=== PATIENT | female | born 1940 | race Caucasian/White ===

== ENCOUNTER → 2017-10-21 | Outpatient (CLI) | payer MEDICARE, MEDICAID ==
[~2017-10-21] MED LIST: ACHD5005 PO; AMLO5TAB2 PO; ASPI-266 PO; ASPI-86 PO; CALC-6 PO; CALC600T12 PO; CALCIUM; CARV25TA PO; CARVEDILOL; CATHETER FLUSH 10 ML SYR IV PRN; CHOL100011 PO; CIPR5DRO OT; CLIN150C17 PO; CLOP75TA; CLPD75T PO; DABI150C5 PO; DEXT15DR OP; DICL50TA4; ERGO400C; FURO40TA4 PO; GABA-488 PO; GLIM4TAB PO; GLUC500C2; LEVO750T6 PO; LOSA100T16; LOSA100T7 PO; LOVA20TA2; LOVA20TA2 PO; METF-380 PO; OMEG1CAP24; OMEG1CAP51 PO; ONDA8TAB9 PO; POTA10CA43 PO; PRD20T PO; REGADENOSON 0.4 MG/5 ML SYR (LEXISCAN) IV ONE; SITA1TAB2; SULF1TAB35 PO
[2017-10-21 13:18] VITALS: BP 118/61
--- NOTE | 2017-10-21 17:30 | STRESS TEST ---
DATE OF SERVICE: 10/21/2017 PROCEDURE: Resting and post regadenoson technetium-99m Tetrofosmin SPECT CT imaging. CLINICAL DIAGNOSIS: Coronary artery disease. ORDERING PHYSICIAN: Dr. Blandon. PRIMARY PHYSICIAN: Dr. Kyle. Baseline images were carried out after injection of 10.19 mCi of technetium-99m Tetrofosmin. This was followed by 0.4 mg regadenoson and 29.3 mCi technetium-99m Tetrofosmin for stress imaging. The electrocardiogram showed atrial fibrillation throughout the study. The electrocardiogram did not change significantly with the regadenoson infusion. Review of images at rest and following stress does not indicate any significant perfusion defects consistent with significant myocardial ischemia or infarction. Gated images show normal global left ventricular systolic function with normal regional wall motion. Left ventricular ejection fraction is calculated to be 58%. Left ventricular end diastolic volume is 54 mL. TID is absent (1.15). CONCLUSIONS: 1. No evidence of any significant myocardial ischemia or infarction on this study. 2. Normal regional wall motion. 3. Normal global left ventricular systolic function with a calculated ejection fraction of 58%. Job ID: [id number] DocumentID: [id number] Dictated Date: 10/21/2017 15:00:43 Accounts Receivable Executive Date: 10/21/2017 17:30:26 Dictated By: SINDY BLANDON MD, MA, FACP, FACC,
== END ==
LOC: CARD 11:24
PROVIDERS: ATTEND Internal Medicine Cardiovascular Disease
DX: I25.10 Atherosclerotic heart disease of native coronary artery without angina pectoris (principal); R06.09 Other forms of dyspnea; E78.4 Other hyperlipidemia; I10 Essential (primary) hypertension; I48.2 Chronic atrial fibrillation; G51.0 Bell's palsy; I65.23 Occlusion and stenosis of bilateral carotid arteries
CPT/HCPCS: 78452; 93017; 93306

== ENCOUNTER 2018-02-10 18:01 | Observation (INO) | payer MEDICARE, MEDICAID ==
[~2018-02-10] VITALS: Ht 154.9 cm; Wt 91.6 kg
[2018-02-10] VITALS (9 sets, daily range): BP systolic 82–128; BP diastolic 31–69
[~2018-02-10 18:01] MED LIST changes: -CATHETER FLUSH 10 ML SYR IV PRN; -REGADENOSON 0.4 MG/5 ML SYR (LEXISCAN) IV ONE
--- OUTSIDE RECORDS SUMMARY | 2018-02-10 18:07 | XMS REPORT | Continuity of Care Document ---
Author Author [facility] Organization [facility] Address Unknown Phone Unavailable Allergies Active Description Code Type Severity Reaction Onset Reported/Identified Relationship to Patient Clinical Status Yes NKANo Known Allergies NKA Miscellaneous Allergy Unknown N/A 03/26/2006 Medications There is no data. Problems Date Dx Coded Attending Type Code Diagnosis Diagnosed By 10/27/2011 Ot 490 10/27/2011 Ot 786.2 07/20/2014 ROSALIE POWELL FACC, SINDY FACP CCDS Ot 250.00 DIAB FILIBERTO WO COMPL, TYPE II OR UNSPEC TY 07/20/2014 SINDY WIGGINS MD, FACC FACP CCDS Ot 272.4 HYPERLIPIDEMIA NEC/NOS 07/20/2014 SINDY WIGGINS MD, FACC FACP CCDS Ot 278.01 MORBID OBESITY 07/20/2014 ROSALIE POWELL FACC, SINDY FACP CCDS Ot 414.01 CORONARY ATHEROSCLEROSIS OF [place] CORON 07/20/2014 SINDY WIGGINS MD, FACC FACP CCDS Ot 427.31 ATRIAL FIBRILLATION 07/20/2014 SINDY WIGGINS MD, FACC FACP CCDS Ot V45.82 PERCUTANEOUS TRANSLUM CORON ANGIOPLASTY 07/20/2014 SINDY WIGGINS MD, FACC FACP CCDS Ot V58.61 ANTICOAGULANTS,LT,CURRENT USE 07/20/2014 SINDY WIGGINS MD, FACC FACP CCDS Ot V58.69 OTH MED,LT,CURRENT USE 07/20/2014 SINDY WIGGINS MD, FACC FACP CCDS Ot V85.41 BODY MASS INDEX 40.0-44.9, ADULT 08/09/2014 BAIMA JACOB L [employer]IVESTOCK BUYER Ot 272.4 08/09/2014 BAIMA JACOB L [employer]OCK BUYER Ot 401.9 08/09/2014 BAIMA, JACOB L [employer]IVESTOCK BUYER Ot 427.31 08/09/2014 BAIMA, JACOB L LIVESTOCK BUYER Ot 784.0 08/09/2014 BAIMA JACOB L [employer]IVESTOCK BUYER Ot 786.09 08/09/2014 BAIMA, JACOB L LIVESTOCK BUYER Ot 786.59 08/19/2014 BAIMA, JACOB L [employer]OCK BUYER Ot 272.4 08/19/2014 BAIMA, JACOB L LIVESTOCK BUYER Ot 401.9 08/19/2014 BAIMA, JACOB L [employer]OCK BUYER Ot 427.31 08/19/2014 BAIMA, JACOB L [employer]OCK BUYER Ot 784.0 08/19/2014 BAIMA, JACOB L [employer]IVESTOCK BUYER Ot 786.09 08/19/2014 BAIMA, JACOB L [employer]IVESTOCK BUYER Ot 786.59 08/22/2014 BAIMA, JACOB L [employer]IVESTOCK BUYER Ot 272.4 08/22/2014 BAIMA, JACOB L [employer]IVE[employer]OCK BUYER Ot 401.9 08/22/2014 BAIMA, JACOB L LIVESTOCK BUYER Ot 427.31 08/22/2014 BAIMA, JACOB L LIVESTOCK BUYER Ot 786.09 08/22/2014 BAIMA, JACOB L LIVESTOCK BUYER Ot V58.61 09/06/2014 BAIMA, JACOB L LIVESTOCK BUYER Ot 272.4 09/06/2014 BAIMA, JACOB L [employer]IVESTOCK BUYER Ot 401.9 09/06/2014 BAIMA, JACOB L LIVESTOCK BUYER Ot 427.31 09/06/2014 BAIMA, JACOB L [employer]IVE[employer]OCK BUYER Ot 786.09 09/06/2014 BAIMARY JACOB L LIVESTOCK BUYER Ot V58.61 01/03/2015 ELIZABETH MALDONADO DO Ot V45.82 01/03/2015 ELIZBAETH MALDONADO DO Ot V57.89 02/12/2015 ELIZABETH MALDONADO DO Ot V45.82 PERCUTANEOUS TRANSLUM CORON ANGIOPLASTY 02/12/2015 ELIZABETH MALDONADO DO Ot V57.89 REHABILITATION PROC NEC 02/17/2015 ELIZABETH MALDONADO DO Ot V45.82 PERCUTANEOUS TRANSLUM CORON ANGIOPLASTY 02/17/2015 ELIZABETH MALDONADO DO Ot V57.89 REHABILITATION PROC NEC 06/09/2015 Ot 447.9 06/09/2015 Ot 729.5 06/09/2015 Ot 272.4 06/09/2015 Ot 414.01 06/09/2015 Ot 433.10 06/09/2015 Ot 780.79 06/09/2015 Ot V58.69 06/09/2015 Ot 782.0 06/09/2015 Ot 434.91 06/09/2015 Ot 414.00 06/09/2015 Ot 434.91 06/09/2015 Ot 721.0 06/09/2015 Ot 414.01 06/09/2015 Ot 785.0 06/09/2015 Ot V58.66 06/09/2015 Ot V58.69 06/09/2015 BAIMA, JACOB L [employer]IVE[employer]OCK BUYER Ot 272.4 06/09/2015 BAIMA, JACOB L LIVESTOCK BUYER Ot 401.9 06/09/2015 BAIMA, JACOB L [employer]IVE[employer]OCK BUYER Ot 427.31 06/09/2015 BAIMA, JACOB L [employer]IVE[employer]OCK BUYER Ot 786.09 06/09/2015 BAIMA, JACOB L LIVESTOCK BUYER Ot V58.61 06/09/2015 BAIMA, JACOB L [employer]IVE[employer]OCK BUYER Ot 272.4 06/09/2015 BAIMA, JACOB L LIVESTOCK BUYER Ot 401.9 06/09/2015 BAIMA, JACOB L LIVESTOCK BUYER Ot 427.31 06/09/2015 BAIMA, JACOB L LIVESTOCK BUYER Ot 784.0 06/09/2015 BAIMA, JACOB L LIVESTOCK BUYER Ot 786.09 06/09/2015 BAIMA, JACOB L [employer]IVE[employer]OCK BUYER Ot 786.59 06/09/2015 ELIZABETH MALDONADO DO Ot V45.82 06/09/2015 ELIZABETH MALDONADO DO Ot V57.89 06/26/2015 ROSALIE POWELL FACC, ALI FACP CCDS Ot E78.5 06/26/2015 ROSALIE POWELL FACC, ALI FACP CCDS Ot I10 06/26/2015 ROSALIE POWELL FACC, ALI FACP CCDS Ot I25.10 06/26/2015 ROSALIE POWELL FACC, ALI FACP CCDS Ot I48.91 06/26/2015 ROSALIE POWELL FACC, ALI FACP CCDS Ot R06.09 06/29/2015 ROSALIE POWELL FACC, ALI FACP CCDS Ot E78.5 06/29/2015 ROSALIE KNIGHTC, ALI FACP CCDS Ot I10 06/29/2015 ROSALIE KNIGHTC, ALI FACP CCDS Ot I25.10 06/29/2015 ROSALIE POWELL FACC, ALI FACP CCDS Ot I48.91 06/29/2015 ROSALIE KNIGHTC, ALI FACP CCDS Ot R06.09 07/19/2015 ROSALIE KNIGHTC, ALI FACP CCDS Ot E78.5 07/19/2015 ROSALIE POWELL FACC, ALI FACP CCDS Ot I10 07/19/2015 ROSALIE POWELL FACC, ALI FACP CCDS Ot I25.10 07/19/2015 ROSALIE POWELL FACC, ALI FACP CCDS Ot I48.91 07/19/2015 ROSALIE POWELL FACC, ALI FACP CCDS Ot R06.09 07/24/2015 ROSALIE POWELL FACC, ALI FACP CCDS Ot E78.5 07/24/2015 ROSALIE POWELL FAC, ALI FACP CCDS Ot I10 07/24/2015 ROSALIE POWELL FACC, ALI FACP CCDS Ot I25.10 07/24/2015 ROSALIE POWELL FAC, ALI FACP CCDS Ot I48.91 07/24/2015 ROSALIE POWELL FAC, ALI FACP CCDS Ot R06.09 07/31/2015 ROSALIE POWELL FAC, ALI FACP CCDS Ot E78.5 07/31/2015 ROSALIE POWELL [facility], ALI FACP CCDS Ot I10 07/31/2015 ROSALIE POWELL [facility], ALI FACP CCDS Ot I25.10 07/31/2015 ROSALIE POWELL [facility], ALI FACP CCDS Ot I48.91 07/31/2015 RSOALIE POWELL [facility], ALI FACP CCDS Ot R06.09 08/14/2015 ELIZABETH MALDONADO DO, Ot D64.9 ANEMIA, UNSPECIFIED 08/14/2015 ELIZABETH MALDONADO DO Ot 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 08/14/2015 ELIZABETH MALDONADO DO Ot E66.9 OBESITY, UNSPECIFIED 08/14/2015 ELIZABETH MALDONADO DO Ot E78.5 HYPERLIPIDEMIA, UNSPECIFIED 08/14/2015 ELIZABETH MALDONADO DO Ot I10 ESSENTIAL (PRIMARY) HYPERTENSION 08/14/2015 ELIZABETH MALDONADO DO, Ot I25.10 ATHSCL HEART DISEASE OF [place] CORONARY 08/14/2015 ELIZABETH MALDONADO DO Ot I27.2 OTHER SECONDARY PULMONARY HYPERTENSION 08/14/2015 ELIZABETH MALDONADO DO Ot I48.2 CHRONIC ATRIAL FIBRILLATION 08/14/2015 ELIZABETH MALDONADO DO Ot I50.31 ACUTE DIASTOLIC (CONGESTIVE) HEART FAILU 08/14/2015 ELIZABETH MALDONADO DO Ot R09.02 HYPOXEMIA 08/14/2015 ELIZABETH MALDONADO DO Ot Z68.41 BODY MASS INDEX (BMI) 40.0-44.9, ADULT 08/14/2015 ELIZABETH MALDONADO DO Ot Z98.61 CORONARY ANGIOPLASTY STATUS 08/16/2015 ELIZABETH MALDONADO DO Ot R09.02 08/31/2015 ERICA GARCIA ELIZABETH Dwight Ot R09.02 08/31/2015 ESTELITA RAO LINOTYPE MECHANIC Ot 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 08/31/2015 ESTELITA RAO LINOTYPE MECHANIC Ot H60.12 CELLULITIS OF LEFT EXTERNAL EAR 09/22/2015 ELIZABETH MALDONADO DO Ot R09.02 11/15/2015 NEELA POWELL, RAHEEL Gastelum Ot H91.90 11/28/2015 NEELA POWELL, RAHEEL Gastelum Ot H91.90 10/21/2017 BAIMA, JACOB L LIVESTOCK BUYER Ot 272.4 HYPERLIPIDEMIA NEC/NOS 10/21/2017 BAIMA, JACOB L LIVESTOCK BUYER Ot 401.9 HYPERTENSION NOS 10/21/2017 BAIMA, JACOB L LIVESTOCK BUYER Ot 427.31 ATRIAL FIBRILLATION 10/21/2017 BAIMA, JACOB L LIVESTOCK BUYER Ot 786.09 RESPIRATORY ABNORM NEC 10/21/2017 BAIMA, JACOB L LIVESTOCK BUYER Ot V58.61 ANTICOAGULANTS,LT,CURRENT USE 10/21/2017 BAIMA, JACOB L LIVESTOCK BUYER Ot 272.4 HYPERLIPIDEMIA NEC/NOS 10/21/2017 BAIMA, JACOB L LIVESTOCK BUYER Ot 401.9 HYPERTENSION NOS 10/21/2017 BAIMA, JACOB L LIVESTOCK BUYER Ot 427.31 ATRIAL FIBRILLATION 10/21/2017 BAIMA, JACOB L LIVESTOCK BUYER Ot 784.0 HEADACHE 10/21/2017 BAIMA, JACOB L LIVESTOCK BUYER Ot 786.09 RESPIRATORY ABNORM NEC 10/21/2017 BAIMA, JACOB L LIVESTOCK BUYER Ot 786.59 CHEST PAIN NEC 10/21/2017 ELIZABETH MALDONADO DO Ot V45.82 PERCUTANEOUS TRANSLUM CORON ANGIOPLASTY 10/21/2017 ELIZABETH MALDONADO DO Ot V57.89 REHABILITATION PROC NEC 10/21/2017 ROSALIE POWELL FACC, SINDY KNIGHTP CCDS Ot E78.5 HYPERLIPIDEMIA, UNSPECIFIED 10/21/2017 ROSALIE POWELL FACC, SINDY KNIGHTP CCDS Ot I10 ESSENTIAL (PRIMARY) HYPERTENSION 10/21/2017 ROSALIE KNIGHTC, ALI FACP CCDS Ot I25.10 ATHSCL HEART DISEASE OF [place] CORONARY 10/21/2017 ROSALIE POWELL FACC, ALI FACP CCDS Ot I48.91 UNSPECIFIED ATRIAL FIBRILLATION 10/21/2017 ROSALIE POWELL FACC, ALI FACP CCDS Ot R06.09 OTHER FORMS OF DYSPNEA 10/21/2017 ROSALIE POWELL FACC, ALI FACP CCDS Ot E78.5 HYPERLIPIDEMIA, UNSPECIFIED 10/21/2017 ROSALIE POWELL FACC, ALI FACP CCDS Ot I10 ESSENTIAL (PRIMARY) HYPERTENSION 10/21/2017 ROSALIE POWELL FACC, ALI FACP CCDS Ot I25.10 ATHSCL HEART DISEASE OF [place] CORONARY 10/21/2017 ROSALIE POWELL FACC, ALI FACP CCDS Ot I48.91 UNSPECIFIED ATRIAL FIBRILLATION 10/21/2017 ROSALIE POWELL FACC, ALI FACP CCDS Ot R06.09 OTHER FORMS OF DYSPNEA 10/21/2017 ELIZABETH MALDONADO DO Ot R09.02 HYPOXEMIA 10/21/2017 RAHEEL KEITA MD Ot H91.90 UNSPECIFIED HEARING LOSS, UNSPECIFIED EA 10/22/2017 ROSALIE POWELL FACC, ALI FACP CCDS Ot E78.4 OTHER HYPERLIPIDEMIA 10/22/2017 ROSAILE POWELL FACC, ALI FACP CCDS Ot 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 10/22/2017 ROSALIE POWELL FACC, ALI FACP CCDS Ot I10 ESSENTIAL (PRIMARY) HYPERTENSION 10/22/2017 ROSALIE POWELL FACC, ALI FACP CCDS Ot I25.10 ATHSCL HEART DISEASE OF [place] CORONARY 10/22/2017 ROSALIE POWELL FACC, ALI FACP CCDS Ot I48.2 CHRONIC ATRIAL FIBRILLATION 10/22/2017 ROSALIE POWELL FACC, ALI FACP CCDS Ot I65.23 OCCLUSION AND STENOSIS OF BILATERAL [place] 10/22/2017 ROSALIE POWELL FACC, ALI FACP CCDS Ot R06.09 OTHER FORMS OF DYSPNEA 11/20/2017 ROSALIE POWELL FACC, ALI FACP CCDS Ot E78.4 OTHER HYPERLIPIDEMIA 11/20/2017 ROSALIE POWELL FACC, ALI FACP CCDS Ot 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 Results There is no data. Encounters ACCT No. Visit Date/Time Discharge Status Pt. Type Provider Facility Loc./Unit Complaint [id number] 10/22/2017 11:00:00 10/22/2017 23:59:59 CLS Preadmit SINDY WIGGINS MD, FACC, FACP CCDS [facility] CARD I25.10 CAD [id number] 10/21/2017 11:24:00 10/21/2017 23:59:59 CLS Outpatient SINDY WIGGINS MD, FACC, FACP CCDS [facility] CARD I25.10 CAD [id number] 10/26/2015 10:52:00 10/26/2015 23:59:59 CLS Outpatient RAHEEL KEITA MD [facility] RAD POOR SPEECH, ASSYMETRICAL HEARING LOSS [id number] 08/31/2015 11:20:00 08/31/2015 15:18:00 DIS Emergency ESTELITA RAO APRN [facility] ER L SIDE FACIAL DROOPING [id number] 08/10/2015 16:20:00 08/14/2015 11:51:00 DIS Inpatient ELIZABETH MALDONADO DO [facility] 4TH CHF [id number] 08/10/2015 14:16:00 08/10/2015 23:59:59 CLS Outpatient ELIZABETH MALDONADO DO [facility] RAD HYPOXIA [id number] 06/22/2015 07:58:00 06/22/2015 23:59:59 CLS Outpatient SINDY WIGGINS MD, FACC FACP CCDS [facility] CARD DYSPNEA,CAD, AFIB [id number] 06/09/2015 09:06:00 06/09/2015 23:59:59 CLS Outpatient SINDY WIGGINS MD, FACCP CCDS [facility] CARD AFIB [id number] 02/10/2015 11:38:00 02/17/2015 12:29:00 DIS Outpatient ELIZABETH MALDONADO DO [facility] CR STENT 07/2014 [id number] 02/13/2015 10:00:00 02/13/2015 23:59:59 CLS Preadmit ELIZABETH MALDONADO DO [facility] CR STENT 07/2014 [id number] 02/08/2015 11:33:00 02/12/2015 00:01:00 DIS Outpatient ELIZABETH MALDONADO DO [facility] CR STENT 07/2014 [id number] 07/19/2014 07:10:00 07/20/2014 12:30:00 DIS Outpatient ROSALIE POWELL FACRolf, SINDY SCHREIBER CCDS [facility] CATH ABNORMAL STRESS,CAD [id number] 07/07/2014 08:03:00 07/07/2014 23:59:59 CLS Outpatient BAIMA, JACOB L LIVESTOCK BUYER [facility] CARD PAF,DYPSNEA,HTN,HLP [id number] 07/05/2014 09:52:00 07/05/2014 23:59:59 CLS Outpatient BAIMA, JACOB L LIVESTOCK BUYER [facility] CARD PAF,DYPSNEA,HTN,HLP [id number] 10/27/2011 10:17:00 Document Registration [id number] 06/13/2011 11:03:00 Document Registration [id number] 06/06/2011 10:25:00 Document Registration [id number] 05/23/2011 08:41:00 Document Registration [id number] 05/09/2011 14:46:00 Document Registration [id number] 05/07/2011 09:28:00 Document Registration [id number] 01/18/2010 08:22:00 Document Registration [id number] 01/04/2010 10:38:00 Document Registration [id number] 06/09/2015 09:08:01 ACT Document Registration
--- NOTE | 2018-02-10 18:56 | ED General ---
General Chief Complaint: General Problems/Pain Stated Complaint: WEAKNESS Source of Information: Patient, Family (Sister), Other Exam Limitations: No Limitations History of Present Illness Date Seen by Provider: Feb 10, 2018 Time Seen by Provider: 18:41 Initial Comments Patient presents to the ER by private conveyance with her sister and her significant other and chief complaint that the past couple months she's been feeling weaker and tired and was complaining of having increased abdominal girth. She went to see her doctor about a week or so ago and he thought that she was in heart failure and wanted her to go in the hospital but it sounds like she refused this so he just increased her Lasix from 40 once a day to 40 twice a day and also increased her potassium. She says she started to feel little better but then 2 days ago she started getting weaker again and got tired and winded just walking from the car to her house. She got up early in the morning because she thought she heard something outside the window and fell landing on the right side of her head and bruising up both of her feet. She says she has peripheral neuropathy secondary to diabetes and does not have much pain from this. She is not been seen for this fall. She's not had any other falls since then. She's not having any weakness, blurry vision, double vision, blindness, difficulty with swallowing. 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 She is not had a cough, fevers or chills. No rash. She has been taking her Lasix and potassium as prescribed. She is on Pradaxa for history of atrial fibrillation and she's had 2 stents in the past by Dr. Blandon. The patient relates to the nurse that after she fell and stubbed her toe bled quite a bit for some time. She says for several hours she cannot get it stopped. She just stopped trying and let it bleed out. She said eventually it stopped but she's not sure how long it bled, she thinks it was probably over several hours. Allergies and Home Medications Allergies Coded Allergies: ARSALANANo Known Allergies (Verified Allergy, Unknown, 03/26/06) Home Medications Amlodipine Besylate 5 Mg Tablet, 5 MG PO DAILY, (Reported) Calcium Carbonate/Vitamin D3 1 Each Tablet, 1 TAB PO DAILY, (Reported) Carvedilol 25 Mg Tablet, 25 MG PO BID, (Reported) Cholecalciferol 1,000 Unit Capsule, 1,000 UNIT PO DAILY, (Reported) Ciprofloxacin HCl 5 Ml Drops, 3 DROPS OT BID Prescribed by: ESTELITA RAO on 08/31/151341 Clindamycin HCl 150 Mg Capsule, 450 MG PO TID Prescribed by: ESTELITA RAO on 08/31/151341 Dabigatran Etexilate Mesylate 150 Mg Capsule, 150 MG PO BID, (Reported) Dextran 70/Hypromellose 15 Ml Drops, 2 ML OP TID Prescribed by: ESTELITA RAO on 08/31/15 134 Furosemide 40 Mg Tablet, 40 MG PO DAILY PRN for FLUID RETENTION, (Reported) Gabapentin 300 Mg Capsule, 300 MG PO HS, (Reported) Glimepiride 4 Mg Tablet, 4 MG PO BID, (Reported) Losartan Potassium 100 Mg Tablet, 100 MG PO DAILY, (Reported) Lovastatin 20 Mg Tablet, 20 MG PO HS, (Reported) Metformin Hcl 1,000 Mg Tablet, 1,000 MG PO BID WITH MEALS, (Reported) Nordman-3 Fatty Acids/Fish Oil 1 Each Capsule, 1,000 MG PO DAILY, (Reported) Ondansetron 8 Mg Tab.rapdis, 8 MG PO Q6H PRN for NAUSEA/VOMITING Prescribed by: ESTELITA RAO on 08/31/151341 Potassium Chloride 10 Meq Capsule.er, 10 MEQ PO DAILY Prescribed by: ELIZABETH MALDONADO on 08/14/15 09 Prednisone 20 Mg Tab, 40 MG PO DAILY Prescribed by: ESTELITA RAO on 08/31/15 134 Sulfamethoxazole/Trimethoprim 1 Each Tablet, 1 EACH PO BID Prescribed by: ESTELITA RAO on 08/31/151341 Patient Home Medication List Home Medication List Reviewed: Yes Review of Systems Constitutional: No chills, No diaphoresis; dizziness; No fever; malaise, weakness EENTM: No ear discharge, No ear pain Respiratory: No cough, No short of breath Cardiovascular: No chest pain, No edema; Hx of Intervention; No palpitations, No syncope; vascular heart diseas Gastrointestinal: No abdominal pain, No constipation, No diarrhea, No nausea, No vomiting Past Hgjqnpv-Turutl-Ufjxqa Hx Patient Social History Alcohol Use: Denies Use Recreational Drug Use: No Smoking Status: Never a Smoker Recent Foreign Travel: No Contact w/Someone Who Travel: No Immunizations Up To Date Tetanus Booster (TDap): Unknown PED Vaccines UTD: No Date of Pneumonia Vaccine: Jul 19, 2011 Date of Influenza Vaccine: Jun 01, 2015 Past Medical History Reproductive Disorders: No Arthritis Diabetes, Non-Insulin dep Anxiety, Depression Adverse Reaction/Blood Tranf: No Family Medical History Cardiovascular disease 19 FATHER 19 MOTHER FH: stroke FHx: diabetes mellitus Physical Exam Vital Signs Vital Signs - First Documented 02/10/18 02/10/18 18:21 20:52 Temp 98.2 Pulse 98 Resp 24 B/P (MAP) 90/58 (69) Pulse Ox 99 O2 Delivery Room Air Capillary Refill : General Appearance: No Apparent Distress, WD/WN Eyes: Bilateral Eye Normal Inspection, Bilateral Eye PERRL, Bilateral Eye EOMI HEENT: PERRL/EOMI, TMs Normal, Normal ENT Inspection, Pharynx Normal, Other ( Scalp is atraumatic and nontender.) Neck: Full Range of Motion, Normal Inspection, Non Tender, Supple Respiratory: Chest Non Tender, Lungs Clear, Normal Breath Sounds, No Accessory Muscle Use, No Respiratory Distress Cardiovascular: Regular Rate, Rhythm, No Murmur, Normal Peripheral Pulses, Other (Faint trace bilateral pedal edema) Gastrointestinal: Normal Bowel Sounds, Non Tender, Soft Neurologic/Psychiatric: Alert, Oriented x3, No Motor/Sensory Deficits, Normal Mood/Affect, 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 Norm as Tested Skin: Warm/Dry, Pallor Progress/Results/Core Measures Suspected Sepsis SIRS Temperature: Pulse: Respiratory Rate: Laboratory Tests 02/10/18 18:37: White Blood Count 11.6H Blood Pressure / Mean: Laboratory Tests 02/10/18 18:37: Creatinine 1.21, Platelet Count 397, Total Bilirubin 0.3 Results/Orders Lab Results Laboratory Tests Test 02/10/18 18:37 02/10/18 19:55 Range/Units White Blood Count 11.6 H 4.3-11.0 10^3/uL Red Blood Count 2.22 L 4.35-5.85 10^6/uL Hemoglobin 5.7 *L 11.5-16.0 G/DL Hematocrit 19 *L 35-52 % Mean Corpuscular Volume 85 80-99 FL Mean Corpuscular Hemoglobin 26 25-34 PG Mean Corpuscular Hemoglobin Concent 30 L 32-36 G/DL Red Cell Distribution Width 21.3 H 10.0-14.5 % Platelet Count 397 130-400 10^3/uL Mean Platelet Volume 11.2 H 7.4-10.4 FL Neutrophils (%) (Auto) 86 H 42-75 % Lymphocytes (%) (Auto) 10 L 12-44 % Monocytes (%) (Auto) 3 0-12 % Eosinophils (%) (Auto) 0 0-10 % Basophils (%) (Auto) 0 0-10 % Neutrophils # (Auto) 10.0 H 1.8-7.8 X 10^3 Lymphocytes # (Auto) 1.2 1.0-4.0 X 10^3 Monocytes # (Auto) 0.4 0.0-1.0 X 10^3 Eosinophils # (Auto) 0.0 0.0-0.3 10^3/uL Basophils # (Auto) 0.0 0.0-0.1 10^3/uL Neutrophils % (Manual) 80 % Lymphocytes % (Manual) 10 % Monocytes % (Manual) 2 % Eosinophils % (Manual) 0 % Basophils % (Manual) 2 % Metamyelocytes % 2 % Band Neutrophils 4 % Anisocytosis MODERATE Microcytosis SLIGHT Sodium Level 141 135-145 MMOL/L Potassium Level 5.1 H 3.6-5.0 MMOL/L Chloride Level 108 H 98-107 MMOL/L Carbon Dioxide Level 20 L 21-32 MMOL/L Anion Gap 13 5-14 MMOL/L Blood Urea Nitrogen 64 H 7-18 MG/DL Creatinine 1.21 0.60-1.30 MG/DL Estimat Glomerular Filtration Rate 43 BUN/Creatinine Ratio 53 Glucose Level 142 H 70-105 MG/DL Calcium Level 9.7 8.5-10.1 MG/DL Magnesium Level 2.0 1.8-2.4 MG/DL Total Bilirubin 0.3 0.1-1.0 MG/DL Aspartate Amino Transf (AST/SGOT) 11 5-34 U/L Alanine Aminotransferase (ALT/SGPT) 12 0-55 U/L Alkaline Phosphatase 43 40-136 U/L Troponin I < 0.30 <0.30 NG/ML B-Type Natriuretic Peptide 351.9 H <100.0 PG/ML Total Protein 6.4 6.4-8.2 GM/DL Albumin 3.7 3.2-4.5 GM/DL Urine Color YELLOW Urine Clarity CLEAR Urine pH 5 5-9 Urine Specific Ramer 1.010 L 1.016-1.022 Urine Protein NEGATIVE NEGATIVE Urine Glucose (UA) NEGATIVE NEGATIVE Urine Ketones NEGATIVE NEGATIVE Urine Nitrite NEGATIVE NEGATIVE Urine Bilirubin NEGATIVE NEGATIVE Urine Urobilinogen NORMAL NORMAL MG/DL Urine Leukocyte Esterase 1+ H NEGATIVE Urine RBC (Auto) NEGATIVE NEGATIVE Urine RBC NONE /HPF Urine WBC RARE /HPF Urine Squamous Epithelial Cells 0-2 /HPF Urine Crystals NONE /LPF Urine Bacteria TRACE /HPF Urine Casts NONE /LPF Urine Mucus NEGATIVE /LPF Urine Culture Indicated NO My Orders Orders - SETH ALVAREZ BNP (02/10/18 18:51) Cbc With Automated Diff (02/10/18 18:51) Comprehensive Metabolic Panel (02/10/18 18:51) Magnesium (02/10/18 18:51) Troponin I (02/10/18 18:51) Ua Culture If Indicated (02/10/18 18:51) Chest 1 View, Ap/Pa Only (02/10/18 18:51) Saline Lock/Iv-Start (02/10/18 18:51) Ekg Tracing (02/10/18 18:51) Continuous Ekg Monitoring (02/10/18 18:51) Orthostatic Vital Signs (Adult (02/10/18 18:51) Foot, Bilateral, 3 View (02/10/18 18:51) Manual Differential (02/10/18 18:37) Vital Signs: Special (Order) (02/10/18 19:24) Consent-Obtain Consent For (02/10/18 19:24) Monitor S/S Transfusion Reacti (02/10/18 19:24) Ns Iv 500 Ml (Sodium Chloride 0.9%) (02/10/18 19:24) Type And Screen (02/10/18 19:24) Red Cells Leukocytes Reduced (02/10/18 19:24) Saline Lock/Iv-Start (02/10/18 20:45) Ns Iv 1000 Ml (Sodium Chloride 0.9%) (02/10/18 20:45) Ns Iv 1000 Ml (Sodium Chloride 0.9%) (02/10/18 20:45) Vital Signs/I&O 02/10/18 02/10/18 02/10/18 02/10/18 18:21 19:09 19:11 20:52 Temp 98.2 98.6 Pulse 98 90 78 91 78 88 Resp 24 14 B/P (MAP) 90/58 (69) 91/66 (74) 91/31 (51) 111/43 95/66 (76) 95/52 (66) Pulse Ox 99 O2 Delivery Room Air Room Air 18 618 6/18 618 21:07 21:11 21:25 21:45 Temp 98.1 98.1 98.1 Pulse 93 90 93 Resp 14 16 14 B/P (MAP) 82/68 125/69 128/72 128/63 (84) Pulse Ox 100 99 99 O2 Delivery Room Air Room Air Room Air 18 18 18 18 21:53 22:53 23:05 00:54 Temp 98.1 98.2 98.0 97.7 Pulse 93 92 87 84 Resp 14 17 18 18 B/P (MAP) 128/63 (84) 105/69 101/52 109/62 Pulse Ox 99 98 87 O2 Delivery Room Air Room Air Room Air Capillary Refill : Progress Note #1: Time: 19:41 Progress Note 2 days after a fall probably less likely she's can have a significant bleed but we discussed the risks benefits and alternatives to doing an imaging scan of her head and neck looking for possible fracture or bleed and she declines imaging at this time. We are going to x-ray her feet and obtain labs as well as a BNP. The theory was initially that her weakness and tiredness is from acute decompensation of her congestive heart failure which led to her primary care doctor asked her to go to the hospital and then eventually since she declined doing that he put her on a higher dose of Lasix. Since she started the higher doses of Lasix it's possible that she's gotten herself dehydrated and now with the hemoglobin of 5 probably secondary to her trauma from her fall this could also be contributing to her weakness. Rather trying get her hemoglobin back up to 8 by giving her 3 units of packed red blood cells overnight and on observation stay. Her BNP is only 350 which is okay but her potassium of 5.1 makes this provider Think that she is maybe not using her Lasix like she should be. Progress Note #2: Time: 21:23 Progress Note Patient's blood pressure has been consistently low on her orthostatics are positive. She's recently had her Lasix increased risk of her back of fluids and see if that doesn't respond. We'll then put her up on some gentle hydration inpt. After a liter fluids and the blood is been started the patient's pressure is now 120s systolic and should be okay to go to the floor. ECG Initial ECG Impression Date: Feb 10, 2018 Initial ECG Impression Time: 18:55 Initial ECG Rate: 82 Initial ECG Rhythm: A Fib/Flutter Initial ECG Intervals: QT (416) Initial ECG Impression: Atrial Fibrillation Initial ECG Comparisson: Unchanged Comment No acute ST elevation or depression. Diagnostic Imaging Diagonstic Imaging: Xray Plain Films/CT/US/NM/MRI: chest Comments Stable Cardiomegally and COPD without acute infiltrate or effusion. [facility] [place] [place] NAME: MARIYA ARMIJO Abhijit MED REC#: [id number] PT STATUS: REG ER : 1940 PHYSICIAN: SETH ALVAREZ MD ADMIT DATE: 02/10/18/ER Draft Date of Exam:02/10/18 CHEST 1 VIEW, AP/PA ONLY INDICATION: Weakness. No chest complaints EXAMINATION: Chest 02/10/2018 COMPARISON: 08/10/2015 FINDINGS: There is cardiomegaly. Pulmonary vasculature is unremarkable. Lungs hyperinflated. No definite infiltrates or effusions noted but examination somewhat limited due to the portable technique. No obvious pneumothorax. IMPRESSION: 1. Marked cardiomegaly with the remaining chest unremarkable for acute findings. Possible findings of COPD. Dictated on workstation # [id number] Dict: 02/10/182035 Trans: 02/10/182041 LIBBY [id number] Interpreted by: RAMAKRISHNA CARSON MD Electronically signed by: Reviewed: Reviewed by Me Diagonstic Imaging: Xray Plain Films/CT/US/NM/MRI: other (ricardo feet) Comments OA. Chronic degenerative changes but no acute fracture. [facility] [place] NAME: MARIYA ARMIJO Abhijit MED REC#: [id number] PT STATUS: REG ER : 1940 PHYSICIAN: SETH ALVAREZ MD ADMIT DATE: 02/10/18/ER Draft Date of Exam:02/10/18 FOOT, BILATERAL, 3 VIEW INDICATION: Injury to the feet, bruising great toe and metatarsal area of both feet. EXAMINATION: Bilateral feet 02/10/2018 FINDINGS: 3 views of each foot Right foot: Narrowing, spurring and other degenerative findings seen throughout the foot especially at the first metatarsal and the first interphalangeal joint space. Toes themselves difficult to evaluate due to flexion and superimposition. A fracture involving the base of the first distal phalanx difficult to completely exclude on the frontal view; correlate for any point tenderness. Marked spurring along the plantar and posterior aspects of the calcaneus noted. There is atherosclerotic disease. Left foot: There is narrowing and spurring at the first metatarsophalangeal joint and distal interphalangeal joint space. Interphalangeal joint space narrowing seen in all digits with no acute fracture or dislocations appreciated. Spurring seen posteriorly and inferiorly along the calcaneus with spurring on the midfoot as well. IMPRESSION: 1. Degenerative findings bilaterally especially involving the great toe and first metatarsal phalangeal joint spaces, questionable fracture versus spurring involving the base of the first distal phalanx on the right; correlate for point tenderness. Dictated on workstation # [id number] Dict: 02/10/182021 Trans: 02/10/182034 LIBBY [id number] Interpreted by: RAMAKRISHNA CARSON MD Electronically signed by: Reviewed: Reviewed by Me Departure Communication (Admissions) Time/Spoke to Admitting Phy: 19:46 Dr Tran Discussed case lab and findings. plan to obs and get H&H in AM and DC. Impression Primary Impression: History of congestive heart failure Additional Impressions: Acute blood loss anemia Fall Qualified Codes: W19.XXXA - Unspecified fall, initial encounter Disposition: ADMITTED INPATIENT Condition: Stable Admissions Decision to Admit Reason: Admit from ER (General) Decision to Admit/Date: Feb 10, 2018 Time/Decision to Admit Time: 19:45 Departure-Patient Inst. Referrals: ELIZABETH MALDONADO DO (PCP/Family) Primary Care Physician Copy Copies To 1: ELIZABETH MALDONADO TITUS J Feb 10, 2018 18:56
[2018-02-10 18:59] LABS: BASOPHILS % (AUTO) 0 % (0-10); EOSINOPHILS % (AUTO) 0 % (0-10); LYMPHOCYTES # (AUTO) 1.2 X 10^3 (1.0-4.0); LYMPHOCYTES % (AUTO) 10 % (12-44); MEAN CORPUSCULAR HEMOGLOBIN 26 PG (25-34); MEAN CORPUSCULAR HGB CONC 30 G/DL (32-36); MEAN CORPUSCULAR VOLUME 85 FL (80-99); MEAN PLATELET VOLUME 11.2 FL (7.4-10.4); MONOCYTES # (AUTO) 0.4 X 10^3 (0.0-1.0); MONOCYTES % (AUTO) 3 % (0-12); NEUTROPHILS % (AUTO) 86 % (42-75); PLATELET COUNT 397 10^3/uL (130-400); RED BLOOD COUNT 2.22 10^6/uL (4.35-5.85); RED CELL DISTRIBUTION WIDTH 21.3 % (10.0-14.5); WHITE BLOOD COUNT 11.6 10^3/uL (4.3-11.0)
[2018-02-10 19:03] LABS: HEMOGLOBIN 5.7 G/DL (11.5-16.0)
[2018-02-10 19:04] LABS: HEMATOCRIT 19 % (35-52)
[2018-02-10 19:12] LABS: ALANINE AMINOTRANSFERASE 12 U/L (0-55); ALBUMIN 3.7 GM/DL (3.2-4.5); ALKALINE PHOSPHATASE 43 U/L (40-136); BILIRUBIN,TOTAL 0.3 MG/DL (0.1-1.0); BUN/CREATININE RATIO 53; CALCIUM 9.7 MG/DL (8.5-10.1); CARBON DIOXIDE 20 MMOL/L (21-32); CHLORIDE 108 MMOL/L (98-107); CREATININE SERUM 1.21 MG/DL (0.60-1.30); GFR ESTIMATED 43; GLUCOSE 142 MG/DL (70-105); POTASSIUM 5.1 MMOL/L (3.6-5.0); SODIUM 141 MMOL/L (135-145); TOTAL PROTEIN 6.4 GM/DL (6.4-8.2)
[2018-02-10 19:18] LABS: BAND NEUTROPHILS 4 %; BASOPHILS % (MANUAL) 2 %; EOSINOPHILS % (MANUAL) 0 %; LYMPHOCYTES % (MANUAL) 10 %; METAMYELOCYTES % 2 %; MONOCYTES % (MANUAL) 2 %; NEUTROPHILS % (MANUAL) 80 %
[2018-02-10 19:19] LABS: ANISOCYTOSIS MODERATE; MICROCYTOSIS SLIGHT
[2018-02-10] MEDS ORDERED: NS IV 500 ML 500 ML IV SCH (19:24)
[2018-02-10 20:21] LABS: BACTERIA,URINE TRACE /HPF; BILIRUBIN,URINE NEGATIVE (NEGATIVE); CLARITY,URINE CLEAR; COLOR,URINE YELLOW; GLUCOSE, URINE (UA) NEGATIVE (NEGATIVE); KETONES,URINE NEGATIVE (NEGATIVE); LEUKOCYTE ESTERASE ,URINE 1+ (NEGATIVE); NITRITE,URINE NEGATIVE (NEGATIVE); PH,URINE 5 (5-9); PROTEIN,URINE NEGATIVE (NEGATIVE); SQUAMOUS EPITHELIAL CELL,UR 0-2 /HPF; UROBILINOGEN,URINE NORMAL (NORMAL); WBC,URINE RARE /HPF
--- NOTE | 2018-02-10 20:36 | Diagnostic Imaging Report ---
INDICATION: Injury to the feet, bruising great toe and metatarsal area of both feet. EXAMINATION: Bilateral feet 02/10/2018 FINDINGS: 3 views of each foot Right foot: Narrowing, spurring and other degenerative findings seen throughout the foot especially at the first metatarsal and the first interphalangeal joint space. Toes themselves difficult to evaluate due to flexion and superimposition. A fracture involving the base of the first distal phalanx difficult to completely exclude on the frontal view; correlate for any point tenderness. Marked spurring along the plantar and posterior aspects of the calcaneus noted. There is atherosclerotic disease. Left foot: There is narrowing and spurring at the first metatarsophalangeal joint and distal interphalangeal joint space. Interphalangeal joint space narrowing seen in all digits with no acute fracture or dislocations appreciated. Spurring seen posteriorly and inferiorly along the calcaneus with spurring on the midfoot as well. IMPRESSION: 1. Degenerative findings bilaterally especially involving the great toe and first metatarsal phalangeal joint spaces, questionable fracture versus spurring involving the base of the first distal phalanx on the right; correlate for point tenderness. Dictated by: Dictated on workstation # [id number]
--- NOTE | 2018-02-10 20:43 | Diagnostic Imaging Report ---
INDICATION: Weakness. No chest complaints EXAMINATION: Chest 02/10/2018 COMPARISON: 08/10/2015 FINDINGS: There is cardiomegaly. Pulmonary vasculature is unremarkable. Lungs hyperinflated. No definite infiltrates or effusions noted but examination somewhat limited due to the portable technique. No obvious pneumothorax. IMPRESSION: 1. Marked cardiomegaly with the remaining chest unremarkable for acute findings. Possible findings of COPD. Dictated by: Dictated on workstation # [id number]
[2018-02-10] MEDS ORDERED: NS IV 1000 ML 1,000 ML ONE (20:45)
[2018-02-10] MEDS ORDERED: NS IV 1000 ML 1,000 ML IV SCH ×2 (20:45→22:00)
--- OUTSIDE RECORDS SUMMARY | 2018-02-10 21:13 | XMS REPORT | Continuity of Care Document ---
Author Author [facility] Organization [facility] Address Unknown Phone Unavailable Allergies Active [...] FACP CCDS Ot 414.01 CORONARY ATHEROSCLEROSIS OF [place] CORON 07/20/2014 SINDY WIGGINS MD, FACC FACP [...] INDEX 40.0-44.9, ADULT 08/09/2014 BAIMA JACOB L RESPIRATORY CARE PRACTITIONER Ot 272.4 08/09/2014 BAIMA JACOB L RESPIRATORY CARE PRACTITIONER Ot 401.9 08/09/2014 BAIMA, JACOB L RESPIRATORY CARE PRACTITIONER Ot 427.31 08/09/2014 BAIMA, JACOB L RESPIRATORY CARE PRACTITIONER Ot 784.0 08/09/2014 BAIMA JACOB L RESPIRATORY CARE PRACTITIONER Ot 786.09 08/09/2014 BAIMA, JACOB L RESPIRATORY CARE PRACTITIONER Ot 786.59 08/19/2014 BAIMA, JACOB L RESPIRATORY CARE PRACTITIONER Ot 272.4 08/19/2014 BAIMA, JACOB L RESPIRATORY CARE PRACTITIONER Ot 401.9 08/19/2014 BAIMA, JACOB L RESPIRATORY CARE PRACTITIONER Ot 427.31 08/19/2014 BAIMA, JACOB L RESPIRATORY CARE PRACTITIONER Ot 784.0 08/19/2014 BAIMA, JACOB L RESPIRATORY CARE PRACTITIONER Ot 786.09 08/19/2014 BAIMA, JACOB L RESPIRATORY CARE PRACTITIONER Ot 786.59 08/22/2014 BAIMA, JACOB L RESPIRATORY CARE PRACTITIONER Ot 272.4 08/22/2014 BAIMA, JACOB L RESPIRATORY CARE PRACTITIONER Ot 401.9 08/22/2014 BAIMA, JACOB L RESPIRATORY CARE PRACTITIONER Ot 427.31 08/22/2014 BAIMA, JACOB L RESPIRATORY CARE PRACTITIONER Ot 786.09 08/22/2014 BAIMA, JACOB L RESPIRATORY CARE PRACTITIONER Ot V58.61 09/06/2014 BAIMA, JACOB L RESPIRATORY CARE PRACTITIONER Ot 272.4 09/06/2014 BAIMA, JACOB L RESPIRATORY CARE PRACTITIONER Ot 401.9 09/06/2014 BAIMA, JACOB L RESPIRATORY CARE PRACTITIONER Ot 427.31 09/06/2014 BAIMA, JACOB L RESPIRATORY CARE PRACTITIONER Ot 786.09 09/06/2014 BAIMARY JACOB L RESPIRATORY CARE PRACTITIONER Ot V58.61 01/03/2015 ELIZABETH MALDONADO DO Ot V45.82 01/03/2015 ELIZABETH MALDONADO DO Ot V57.89 02/12/2015 ELIZABETH MALDONADO [...] 06/09/2015 Ot V58.69 06/09/2015 BAIMA, JACOB L RESPIRATORY CARE PRACTITIONER Ot 272.4 06/09/2015 BAIMA, JACOB L RESPIRATORY CARE PRACTITIONER Ot 401.9 06/09/2015 BAIMA, JACOB L RESPIRATORY CARE PRACTITIONER Ot 427.31 06/09/2015 BAIMA, JACOB L RESPIRATORY CARE PRACTITIONER Ot 786.09 06/09/2015 BAIMA, JACOB L RESPIRATORY CARE PRACTITIONER Ot V58.61 06/09/2015 BAIMA, JACOB L RESPIRATORY CARE PRACTITIONER Ot 272.4 06/09/2015 BAIMA, JACOB L RESPIRATORY CARE PRACTITIONER Ot 401.9 06/09/2015 BAIMA, JACOB L RESPIRATORY CARE PRACTITIONER Ot 427.31 06/09/2015 BAIMA, JACOB L RESPIRATORY CARE PRACTITIONER Ot 784.0 06/09/2015 BAIMA, JACOB L RESPIRATORY CARE PRACTITIONER Ot 786.09 06/09/2015 BAIMA, JACOB L RESPIRATORY CARE PRACTITIONER Ot 786.59 06/09/2015 ELIZABETH MALDONADO DO Ot [...] FACP CCDS Ot E78.5 07/31/[address] [facility], ALI FACP CCDS Ot I10 07/31/[address] [facility], ALI FACP CCDS Ot I25.10 07/31/[address] [facility], ALI FACP CCDS Ot I48.91 07/31/[address] 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 08/14/2015 ELIZABETH MALDONADO DO Ot E66.9 OBESITY, UNSPECIFIED 08/14/2015 ELIZABETH MALDONADO DO Ot E78.5 HYPERLIPIDEMIA, UNSPECIFIED 08/14/2015 ELIZABETH MALDONADO DO Ot I10 ESSENTIAL (PRIMARY) HYPERTENSION 08/14/2015 ELIZABETH MALDONADO DO, Ot I25.10 ATHSCL HEART DISEASE OF [place] CORONARY 08/14/2015 ELIZABETH MALDONADO DO Ot I27.2 [...] ELIZABETH Dwight Ot R09.02 08/31/2015 ESTELITA RAO MACHINE VENEER REPAIRER Ot 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 08/31/2015 ESTELITA RAO MACHINE VENEER REPAIRER Ot H60.12 CELLULITIS OF LEFT EXTERNAL EAR 09/22/2015 ELIZABETH MALDONADO DO Ot R09.02 11/15/2015 NEELA POWELL, RAHEEL Gastelum Ot H91.90 11/28/2015 NEELA POWELL, RAHEEL Gastelum Ot H91.90 10/21/2017 BAIMA, JACOB L RESPIRATORY CARE PRACTITIONER Ot 272.4 HYPERLIPIDEMIA NEC/NOS 10/21/2017 BAIMA, JACOB L RESPIRATORY CARE PRACTITIONER Ot 401.9 HYPERTENSION NOS 10/21/2017 BAIMA, JACOB L RESPIRATORY CARE PRACTITIONER Ot 427.31 ATRIAL FIBRILLATION 10/21/2017 BAIMA, JACOB L RESPIRATORY CARE PRACTITIONER Ot 786.09 RESPIRATORY ABNORM NEC 10/21/2017 BAIMA, JACOB L RESPIRATORY CARE PRACTITIONER Ot V58.61 ANTICOAGULANTS,LT,CURRENT USE 10/21/2017 BAIMA, JACOB L RESPIRATORY CARE PRACTITIONER Ot 272.4 HYPERLIPIDEMIA NEC/NOS 10/21/2017 BAIMA, JACOB L RESPIRATORY CARE PRACTITIONER Ot 401.9 HYPERTENSION NOS 10/21/2017 BAIMA, JACOB L RESPIRATORY CARE PRACTITIONER Ot 427.31 ATRIAL FIBRILLATION 10/21/2017 BAIMA, JACOB L RESPIRATORY CARE PRACTITIONER Ot 784.0 HEADACHE 10/21/2017 BAIMA, JACOB L RESPIRATORY CARE PRACTITIONER Ot 786.09 RESPIRATORY ABNORM NEC 10/21/2017 BAIMA, JACOB L RESPIRATORY CARE PRACTITIONER Ot 786.59 CHEST PAIN NEC 10/21/2017 ELIZABETH MALDONADO DO Ot V45.82 PERCUTANEOUS TRANSLUM CORON ANGIOPLASTY 10/21/2017 ELIZABETH MALDONADO DO Ot V57.89 REHABILITATION PROC NEC 10/21/2017 ROSALIE POWELL FACC, SINDY KNIGHTP CCDS Ot E78.5 HYPERLIPIDEMIA, UNSPECIFIED 10/21/2017 ROSALIE POWELL FACC, SINDY KNIGHTP CCDS Ot I10 ESSENTIAL (PRIMARY) HYPERTENSION 10/21/2017 ROSALIE KNIGHTC, ALI FACP CCDS Ot I25.10 ATHSCL HEART DISEASE OF [place] CORONARY 10/21/2017 ROSALIE POWELL FACC, ALI FACP CCDS Ot I48.91 UNSPECIFIED ATRIAL FIBRILLATION 10/21/2017 ROSALIE POWELL FACC, ALI FACP CCDS Ot R06.09 OTHER FORMS OF D[place]SP[place]A 10/21/2017 ROSALIE POWELL FACC, ALI FACP CCDS Ot E78.5 HYPERLIPIDEMIA, UNSPECIFIED 10/21/2017 ROSALIE POWELL FACC, ALI FACP CCDS Ot I10 ESSENTIAL (PRIMARY) HYPERTENSION 10/21/2017 ROSALIE POWELL FACC, ALI FACP CCDS Ot I25.10 ATHSCL HEART DISEASE OF [place] CORONARY 10/21/2017 ROSALIE POWELL FACC, ALI FACP CCDS Ot I48.91 UNSPECIFIED ATRIAL FIBRILLATION 10/21/2017 ROSALIE POWELL FACC, ALI FACP CCDS Ot R06.09 OTHER FORMS OF DYSPNEA 10/21/2017 ELIZABETH MALDONADO DO Ot R09.02 HYPOXEMIA 10/21/2017 RAHEEL KEITA MD Ot H91.90 UNSPECIFIED HEARING LOSS, UNSPECIFIED EA 10/22/2017 ROSALIE POWELL FACC, ALI FACP CCDS Ot E78.4 OTHER HYPERLIPIDEMIA 10/22/2017 ROSALIE POWELL FACC, ALI FACP CCDS Ot 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 Type Provider Facility Loc./Unit Complaint [id number] 10/22/2017 11:00:00 10/22/2017 23:59:59 CLS Preadmit SINDY WIGGINS MD, FACC, FACP CCDS [facility] CARD I25.10 CAD [id number] 10/21/2017 11:24:00 10/21/2017 23:59:59 CLS Outpatient SINDY WIGGINS MD, FACC, FACP CCDS [facility] CARD I25.10 CAD [id number] 10/26/2015 10:52:00 10/26/2015 23:59:59 CLS Outpatient RAHEEL KEITA MD [facility] RAD POOR SPEECH, ASSYMETRICAL HEARING LOSS [id number] 08/31/2015 11:20:00 08/31/2015 15:18:00 DIS Emergency ESTELITA RAO APRN [facility] ER L SIDE FACIAL DROOPING [id number] 08/10/2015 16:20:00 08/14/2015 11:51:00 DIS Inpatient ELIZABETH MALDONADO DO [facility] 4TH CHF [id number] 08/10/2015 14:16:00 08/10/2015 23:59:59 CLS Outpatient ELIZABETH MALDONADO DO [facility] RAD HYPOXIA [id number] 06/22/2015 07:58:00 06/22/2015 23:59:59 CLS Outpatient SINDY WIGGINS MD, FACC FACP CCDS [facility] CARD DYSPNEA,CAD, AFIB [id number] 06/09/2015 09:06:00 06/09/2015 23:59:59 CLS Outpatient SINDY WIGGINS MD, FACCP CCDS [facility] CARD AFIB [id number] 02/10/2015 11:38:00 02/17/2015 12:29:00 DIS Outpatient ELIZABETH MALDONADO DO [facility] CR STENT 07/2014 [id number] 02/13/2015 10:00:00 02/13/2015 23:59:59 CLS Preadmit ELIZABETH MALDONADO DO [facility] CR STENT 07/2014 [id number] 02/08/2015 11:33:00 02/12/2015 00:01:00 DIS Outpatient ELIZABETH MALDONADO DO [facility] CR STENT 07/2014 [id number] 07/19/2014 07:10:00 07/20/2014 12:30:00 DIS Outpatient ROSALIE POWELL FACRolf, SINDY SCHREIBER CCDS [facility] CATH ABNORMAL STRESS,CAD [id number] 07/07/2014 08:03:00 07/07/2014 23:59:59 CLS Outpatient BAIMA, JACOB L RESPIRATORY CARE PRACTITIONER [facility] CARD PAF,DYPSNEA,HTN,HLP [id number] 07/05/2014 09:52:00 07/05/2014 23:59:59 CLS Outpatient BAIMA, JACOB L RESPIRATORY CARE PRACTITIONER [facility] CARD PAF,DYPSNEA,HTN,HLP [id number] 10/27/2011 10:17:00 Document Registration [id number] 06/13/2011 11:03:00 Document Registration [id number] 06/06/2011 10:25:00 Document Registration [id number] 05/23/2011 08:41:00 Document Registration [id number] 05/09/2011 14:46:00 Document Registration [id number] 05/07/2011 09:28:00 Document Registration [id number] 01/18/2010 08:22:00 Document Registration [id number] 01/04/2010 10:38:00 Document Registration [email or web address] 06/09/2015 09:08:01 ACT Document Registration
[2018-02-10] MEDS ORDERED: ACETAMINOPHEN 500 MG TAB (TYLENOL) PO PRN (22:00)
[2018-02-10] MEDS ORDERED: ONDANSETRON 4 MG/2 ML (SDV) Z0FRAN IV PRN (22:00)
[2018-02-11] VITALS (10 sets, daily range): BP systolic 105–134; BP diastolic 50–81
[2018-02-11 06:07] LABS: BASOPHILS # (AUTO) 0.1 10^3/uL (0.0-0.1); BASOPHILS % (AUTO) 1 % (0-10); EOSINOPHILS # (AUTO) 0.1 10^3/uL (0.0-0.3); EOSINOPHILS % (AUTO) 1 % (0-10); HEMATOCRIT 27 % (35-52); HEMOGLOBIN 8.7 G/DL (11.5-16.0); LYMPHOCYTES # (AUTO) 1.5 X 10^3 (1.0-4.0); LYMPHOCYTES % (AUTO) 14 % (12-44); MEAN CORPUSCULAR HEMOGLOBIN 27 PG (25-34); MEAN CORPUSCULAR HGB CONC 32 G/DL (32-36); MEAN CORPUSCULAR VOLUME 83 FL (80-99); MEAN PLATELET VOLUME 10.8 FL (7.4-10.4); MONOCYTES # (AUTO) 0.8 X 10^3 (0.0-1.0); MONOCYTES % (AUTO) 7 % (0-12); NEUTROPHILS # (AUTO) 8.3 X 10^3 (1.8-7.8); NEUTROPHILS % (AUTO) 77 % (42-75); PLATELET COUNT 342 10^3/uL (130-400); RED BLOOD COUNT 3.24 10^6/uL (4.35-5.85); RED CELL DISTRIBUTION WIDTH 17.9 % (10.0-14.5); WHITE BLOOD COUNT 10.7 10^3/uL (4.3-11.0)
[2018-02-11 06:34] LABS: CREATININE SERUM 1.07 MG/DL (0.60-1.30); POTASSIUM 4.3 MMOL/L (3.6-5.0)
[2018-02-11] MEDS: inSUlin ASPART (NovoLOG) 1 UNIT/0.01 ML (CHARGE PER UNIT) SC SCH ×3 (07:20→16:45)
[2018-02-11] MEDS ORDERED: DABIGATRAN 150 MG (PRADAXA) CAPSULE PO SCH (09:00)
[2018-02-11] MEDS ORDERED: POLY15DR14 OU (10:04)
[2018-02-11] MEDS ORDERED: ASPI-983 PO (10:04)
[2018-02-11] MEDS ORDERED: GLIM4TAB PO (10:04)
[2018-02-11] MEDS ORDERED: OMG1KC PO (10:04)
[2018-02-11] MEDS ORDERED: CHOL10007 PO (10:04)
[2018-02-11] MEDS ORDERED: METF10002 PO (10:04)
[2018-02-11] MEDS ORDERED: LOVA20TA2 PO (10:04)
[2018-02-11] MEDS ORDERED: DABI150C5 PO (10:04)
[2018-02-11] MEDS ORDERED: AMLO5TAB2 PO (10:04)
[2018-02-11] MEDS ORDERED: CARV25TA PO (10:04)
[2018-02-11] MEDS ORDERED: LOSA100T28 PO (10:04)
[2018-02-11] MEDS ORDERED: FURO40TA4 PO (10:04)
[2018-02-11] MEDS ORDERED: POTA10TA10 PO (10:04)
--- NOTE | 2018-02-11 11:42 | Short Stay Summary-Hospitalist ---
History of Present Illness HPI/Chief Complaint Pt is a 77yoCF with a PMH of CHF, dewey's palsy, CVA, and neuropathy who presented to the ER with 3 week history of weakness. She states it started 3 weeks ago when she tried to get out her sister's car but couldn't and needed her sister to assist her in to her home when she is normally able to ambulate with walker only. She has had worsening FLEMING and stamina over those 3 weeks. On the morning of 02/08 she jumped out of bed when she was startled by a sound and fell and cut her foot. She was able to crawl but in to bed but was unable to bend over and place a bandage on her foot. She is on pradaxa and was unable to get the cut to stop bleeding so she let it "bleed out." She states it continued to bleed a significant amount all day on 02/08. Her symptoms worsened of the next two days and finally prompted her to seek evaluation in the ER. She was found to be severely anemic and was admitted to [facility] for transfusion. She states she has been able to get up and walk with her walker today but is not quite back to her baseline. She lives alone in a ground floor apartment at baseline. Source: patient Exam Limitations: no limitations Date Seen 02/11/18 Time Seen by Provider: 11:00 Attending Physician Rory Tran MD PCP Elizabeth Kyle DO Referring Physician Date of Admission Feb 10, 2018 at 9:08 pm Home Medications & Allergies Home Medications Reviewed patient Home Medication Reconciliation performed by pharmacy medication reconciliations planetarium technician and/or nursing. Patients Allergies have been reviewed. Allergies Allergies Coded Allergies NKANo Known Allergies (Verified Allergy, Unknown, 03/26/06) Past Qfuriyr-Qojfhe-Xbdgls Hx Past Med/Social Hx: Reviewed Nursing Past Med/Soc Hx Patient Social History Marrital Status: single Alcohol Use: Denies Use Recreational Drug Use: No Smoking Status: Former Smoker Former Smoker, Quit: Feb 11, 1985 Type Used: Cigarettes Physical Abuse Screen: No Sexual Abuse: No Recent Foreign Travel: No Contact w/other who traveled: No Recent Hopitalizations: No Recent Infectious Disease Expo: No Immunizations Up To Date Tetanus Booster (TDap): Unknown Pediatric: No Date of Pneumonia Vaccine: Jul 19, 2011 Date of Influenza Vaccine: Jun 01, 2015 Seasonal Allergies Seasonal Allergies: No Past Medical History Surgeries: Coronary Stent Currently Using CPAP: No Currently Using BIPAP: No Cardiac: Atrial Fibrillation, Cardiomyopathy, Heart Attack Neurological: Neuropathy 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 Reproductive: No Sexually Transmitted Disease: No HIV/AIDS: No Female 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 Musculoskeletal: Arthritis Endocrine: Diabetes, Non-Insulin dep Are Your Blood Sugars Over 250: No HEENT: Cataract Loss of Vision: Denies Hearing Impairment: Denies Psychosocial: Depression History of Blood Disorders: No Adverse Reaction to Blood [place]: No Family History Reviewed Nursing Family Hx Cardiovascular disease 19 FATHER 19 MOTHER FH: stroke FHx: diabetes mellitus Review of Systems Constitutional: No chills, No fever; weakness EENTM: No blurred vision, No double vision, No nose congestion, No throat pain Respiratory: see HPI; No cough; dyspnea on exertion, short of breath Cardiovascular: No chest pain, No palpitations Gastrointestinal: no symptoms reported Genitourinary: no symptoms reported Musculoskeletal: see HPI, muscle weakness Skin: no symptoms reported Psychiatric/Neurological: No Symptoms Reported Physical Exam Physical Exam Vital Signs Vital Signs - First Documented 02/10/18 02/10/18 18:21 20:52 Temp 98.2 Pulse 98 Resp 24 B/P (MAP) 90/58 (69) Pulse Ox 99 O2 Delivery Room Air Capillary Refill : Less Than 3 Seconds General Appearance: No Apparent Distress HEENT: PERRL/EOMI, Moist Mucous Membranes Neck: Non Tender, Supple Respiratory: Lungs Clear, No Respiratory Distress Cardiovascular: Regular Rate, Rhythm, No Murmur Gastrointestinal: Normal Bowel Sounds, Non Tender, Soft Extremity: Normal Capillary Refill, No Calf Tenderness, Other (left great toe with ecchymosis and abrasion noted) Neurologic/Psychiatric: Alert, Oriented x3, Normal Mood/Affect, Facial Droop ( left side- mild and chronic) Skin: Normal Color, Warm/Dry, Ecchymosis (of left great toe and dorsal aspect of right foot) Results Results/Procedures Labs Laboratory Tests 02/10/18 18:37 02/11/18 05:22 Patient resulted labs reviewed. Imaging: Reviewed Imaging Report Short Stay Diagnosis Discharge Diagnosis-Short Stay Admission Diagnosis Anemia Final Discharge Diagnosis Anemia Conclusion Plan See below Diagnosis/Problems Diagnosis/Problems (1) Acute blood loss anemia Status: Acute Assessment & Plan: s/p 3 units pRBCs Denies any dark stools Will need outpatient coloscopy Discussed with patient who declined Discussed indication and evaluation for neoplasm causing anemia but she declined still Likely acute on anemia of chronic disease (2) History of congestive heart failure Status: Acute Assessment & Plan: No evidence of acute exacerbation (3) CAD (coronary artery disease) Onset Date: 07/20/2014 Status: Acute Assessment & Plan: No chest pain Qualifiers: Qualified Codes: I25.10 - Atherosclerotic heart disease of [place] coronary artery without angina pectoris (4) Fall Status: Acute Assessment & Plan: PT/OT consulted To functional for IRU Will DC home per patient request Qualifiers: Qualified Codes: W19.XXXA - Unspecified fall, initial encounter Clinical Quality Measures DVT/VTE Risk/Contraindication: Risk Factor Score Per Nursin RFS Level Per Nursing on Admit: 1=Low/No VTE PPX Copy Copies To 1: ELIZABETH KYLE KATELYN M MD Feb 11, 2018 11:42 am
--- NOTE | 2018-02-11 14:20 | Physical Therapy Evaluation ---
PT Evaluation-General Medical Diagnosis Admission Date Feb 10, 2018 at 21:08 Medical Diagnosis: anemia Onset Date: Feb 10, 2018 Therapy Diagnosis Therapy Diagnosis: weakness Height/Weight Height (Feet): 5 Height (Inches): 1.00 Weight (Pounds): 202 Weight (Ounces): 5.0 Precautions Precautions/Isolations: Standard Precautions Weight Bear Status Right Lower Extremity: Right Weight Bearing/Tolerated Left Lower Extremity: Left Weight Bearing/Tolerated Referral Physician: Jones Reason for Referral: Evaluation/Treatment Medical History Pertinent Medical History: CVA, Neuropathy Additional Medical History CHF, [place] Palsy Current History Pt reports a progressive weakness over the past 3 weeks. Reports an incident of falling out of bed on the day of admit. She presented to this hospital and was admitted due to acute blood loss/anemia. Reviewed History: Yes Social History Home: Apartment ([facility] in [place]) Current Living Status: Alone Entry Into Home: Level Entry Pt reports her sister lives in the same apartment complex. Prior/Core FIM Prior Level of Function Functional [place] Measure 0=Not Assessed/NA 4=Minimal Assistance 1=Total Assistance 5=Supervision or Setup 2=Maximal Assistance 6=Modified [place] 3=Moderate Assistance 7=Complete [place] Bed Mobility: 7 (reports she typically sleeps on her left side. ) Transfers (B,C,W/C) (FIM): 7 Gait: 6 (She has a SW that she has been using the last few weeks. ) Lives alone; able to do her own cooking and self care. Drives. Ambulates short community distances. PT Evaluation-Current Subjective Agreeable to PT. Reports she was able to toilet herself without assist earlier today. Reports she feels better than the day she admitted but acknowledges that she still feels a bit weak. Pain Numeric Pain Scale: 0-No Pain Location: No Pain Reported Objective Patient Orientation: Person, Place, Time, Situation Problem Solving: Good Attachments: IV ROM/Strength ROM Lower Extremities WNL Strength Lower Extremities grossly 4/5 throughout Integumentary/Posture Integumentary Refer to nursing notes; This therapist did visualize bruising on the dorsum of her left foot. Bowel Incontinence: No Bladder Incontinence: No Posture symmetrical; normal Neuromuscular (Tone, Coordination, Reflexes) intact and wFL Sensory Vision: Functional Hearing: Functional Hand Dominance: Right Sensation Right Lower Extremit: Impaired Sensation Left Lower Extremity: Impaired Sensation Lower Extremities Pt reports she has had LE neuropathy for the past few years with impaired sensation. Transfers Functional [place] Measure 0=Not Assessed/NA 4=Minimal Assistance 1=Total Assistance 5=Supervision or Setup 2=Maximal Assistance 6=Modified [place] 3=Moderate Assistance 7=Complete [place] Transfers (B, C, W/C) (FIM): 5 Scootin Rollin Supine to/from Sit: 5 (with HOB flat and without using bedrail) Sit to/from Stand: 5 (from varied surface heights) SBA for safety only. Gait Mode of Locomotion: Walk Anticipated Mode of Locomotion: Walk Gait (FIM): 5 Distance (FIM): 3=150 ft Distance: 200 ft Gait Level of Assist: 5 Gait Assistive Device: FWW Comments/Gait Description Pt required 2 standing rest breaks with gait; safe and steady; no noted LOB episode. Balance Sitting Static: Good Sitting Dynamic: Good Standing Static: Good Standing Dynamic: Good Treatment Pt was able to take her socks on and off; she was also able to stand and pull her undergarments up/down with SBA. Assessment/Needs Pt presents with a diminished functional activity tolerance likely due to anemia. She is SBA with functional mobility and did not demonstrate need for safety concern this visit. She is able to ambulate and transfer without assist. She may benefit from short term skilled PT (while on acute) for gait and transfers to work to increase her functional activity tolerance. Rehab Potential: Good PT Intermediate Goals Refrigeration Plant Operator Goals PT Refrigeration Plant Operator Goals Time Frame: Feb 14, 2018 Transfers (B,C,W/C) (FIM): 7 Gait (FIM): 6 Gait distance (FIM): 3=150 ft Gait Assistive Device: FWW PT Plan Problem List Problem List: Activity Tolerance, Functional Strength, Safety, Balance, Gait, Transfer, Bed Mobility Treatment/Plan Treatment Plan: Continue Plan of Care Treatment Plan: Bed Mobility, Education, Functional Activity Edward, Functional Strength, Gait, Safety, Therapeutic Exercise, Transfers Treatment Duration: Feb 14, 2018 Frequency: 5 times per week Estimated Hrs Per Day: .25 hour per day Patient and/or Family Agrees t: Yes Safety Risks/Education Patient Education: Transfer Techniques, Safety Issues Teaching Recipient: Patient Teaching Methods: Demonstration, Discussion Response to Teaching: Reinforcement Needed Discharge Recommendations Therapy D/C Recommendations: Physical Therapy Home Care Time/GCodes Time In: 1112 Time Out: 1135 Total Billed Treatment Time: 23 Total Billed Treatment visit EVM 23 RYAN BAILEY PT Feb 11, 2018 14:19
--- NOTE | 2018-02-11 14:35 | Discharge Inst-Simple/Standard ---
Discharge Inst-Standard Discharge Medications New, Converted or Re-Newed RX: Call to Patients Pharmacy Patient Instructions/Follow Up Plan of Care/Instructions/FU: Please continue to take your medications as written. Please follow up with Dr Kyle to follow up on this hospital stay and to discuss whether you Activity as Tolerated: Yes Discharge Diet: No Restrictions Return to The Hospital For: Dark stools, bloody stools, further weakness, SOB, or if you feel you are getting worse. OPAL NOVAK MD Feb 11, 2018 2:35 pm
--- NOTE | 2018-02-11 14:37 | Occupational Therapy Eval ---
OT Evaluation-General/PLF Medical Diagnosis Admission Date Feb 10, 2018 at 21:08 Medical Diagnosis: anemia Onset Date: Feb 10, 2018 Therapy Diagnosis Therapy Diagnosis: decreased self care Height/Weight Height (Feet): 5 Height (Inches): 1.00 Weight (Pounds): 202 Weight (Ounces): 5.0 Precautions Precautions/Isolations: Standard Precautions Referral Physician: Jones Referral Reason: Evaluation/Treatment Medical History Pertinent Medical History: Atrial Fib, Arthritis, CVA, DM, Heart Failure, HTN, [place], Neuropathy Additional Medical History Dewey's Palsy. Cardiomyopathy, coronary stents. Anxiety, depression. Current History Fell at home when she hopped up out of bed. Social History Home: Apartment (Senior housing in [place]) Current Living Status: Alone Entry Into Home: Level Entry ADL-Prior Level of Function ADL PLOF Comments Pt reported that she has been able to manage her basic self care needs. She fixes meals and does light housekeeping. She is retired from [employer] and still drives. Her sister lives in the same apartment complex and checks on her. DME/Equipment: Shower, Tub/Shower DME/Equipment Comments She does not think that the toilets are taller Drive Self: Yes OT Current Status Subjective Pt seen in room, up in recliner, agreeable to OT. No pain mentioned. Appearance Alert, cooperative Mental Status/Objective Attachments: Telemetry Current Hand Dominance: Right Upper Extremity ROM Grossly WFL bilat (R UE limited a little by IV) Upper Extremity Sensation Pt reported some numbness in R UE as well as both legs Upper Extremity Strength Grossly 5/5 bilat ADL-Treatment ADL-Current She was able to feed herself without difficulty. She got up from recliner and walked to bathroom without help or LOB, with cue to use her walker. She got on and off tall toilet without help (did not use grab bar), managed clothing and hygiene without help or LOB. Walked to sink to wash hands without help. She reported that she was able to get her socks off and on earlier for PT. She has no concerns about being discharged to home except that she would like a walker with front wheels for use at home. She was able to describe several examples of energy conservation and pacing herself. Functional [place] Measure 0=Not Assessed/NA 4=Minimal Assistance 1=Total Assistance 5=Supervision or Setup 2=Maximal Assistance 6=Modified [place] 3=Moderate Assistance 7=Complete IndependenceIRFPAI Quality Coding Scale 6 Independent with activity with or without an assistive device 5 Patient requires set up or clean up by helper. Patient completes activity by themselves 4 Supervision or touching assist (CGA). [place] provide cues , steadying assist 3 The helper provides less than half the effort to complete the activity 2 The helper provides more than half the effort to complete the activity 1 Dependent. The helper does all the effort to complete an activity 7 Patient refused to complete or attempt activity 9 The patient did not perform the activity before the current illness or injury 88 Not attempted due to Medical conditions or safety concerns Education OT Patient Education: Purpose of tx/functional activities, Rehab process, Transfer techniques Teaching Recipient: Patient Teaching Methods: Discussion Response to Teaching: Verbalize Understanding OT Education/Plan Problem List/Assessment Assessment: No Skilled OT Needs ID'd No skilled OT needs identified. She is able to manage basic self care needs, has good UE strength and identified energy conservation techniques Discharge Recommendations Plan/Recommendations: Discontinue OT Treatment Plan/Plan of Care Treatment,Training & Education: No Patient would benefit from OT for education, treatment and training to promote independence in ADL's, mobility, safety and/or upper extremity function for ADL' s. Treatment Duration: Feb 11, 2018 Frequency: 1 time per week Estimated Hrs Per Day: Other Agreement: Yes Rehab Potential: Good Time/GCodes Start Time: 13:55 Stop Time: 14:25 Total Time Billed (hr/min): 30 Billed Treatment Time visit, 30 minutes evaluation low intensity PT/OT Therapy GCodes Therapy Functional Limitation: Occupational Therapy Test(s)/Tool used to determine: FIM Functional Limitation-Current Charge Code: SELFCUR Modifier: CI Functional Limitation-Goal Charge Code: SELFGOAL Modifier: CI Functional Limitation-D/C Charge Codes: SELFDC Modifier: CI ROBERT CULVER OT Feb 11, 2018 14:37
[2018-02-11] MEDS ORDERED: SIMvastatin 10 MG (ZOCOR) TAB PO SCH (21:00)
[2018-02-11] MEDS ORDERED: GABAPENTIN 300 MG (NEURONTIN) CAP PO SCH (21:00)
== END 2018-02-11 14:36 | disposition home or self-care (01) ==
LOC: EDUNIT# 18:01 → ER 18:02 → UNDOADMOB 21:08 → 4TH 21:08 → UNDODISOB 02-11 17:08
PROVIDERS: ADMIT Internal Medicine; ATTEND Internal Medicine
DX: D50.0 Iron deficiency anemia secondary to blood loss (chronic) (principal); I25.10 Atherosclerotic heart disease of native coronary artery without angina pectoris; Z87.891 Personal history of nicotine dependence; I48.91 Unspecified atrial fibrillation; I25.2 Old myocardial infarction; I42.9 Cardiomyopathy, unspecified; G51.0 Bell's palsy; E11.42 Type 2 diabetes mellitus with diabetic polyneuropathy; F32.9 Major depressive disorder, single episode, unspecified; R29.6 Repeated falls; Z91.81 History of falling
CPT/HCPCS: 36415; 36430; 71045; 80048; 80053; 81000; 82962; 83735; 83880; 84484; 85007; 85025; 85027; 86850; 86900; 86901; 86920; 93005; 96360; 96361; G0378

== ENCOUNTER 2018-03-02 06:07 | Outpatient (CLI) | payer MEDICARE, MEDICAID ==
[~2018-03-02] VITALS: Ht 154.9 cm; Wt 91.6 kg
[~2018-03-02 06:07] MED LIST changes: +ASPI-983 PO; +CHOL10007 PO; +LOSA100T28 PO; +METF10002 PO; +OMG1KC PO; +POLY15DR14 OU; +POTA10TA10 PO
== END 2018-03-02 10:55 ==
LOC: PREOP 06:07
PROVIDERS: ATTEND Surgery
DX: Z01.818 Encounter for other preprocedural examination (principal)

== ENCOUNTER 2018-03-09 09:53 | Day surgery (SDC) | payer MEDICARE, MEDICAID ==
[~2018-03-09] VITALS: Ht 154.9 cm; Wt 91.6 kg
[2018-03-09] MEDS ORDERED: NS IV 500 ML 500 ML ONE (10:22)
[2018-03-09] MEDS ORDERED: NS IV 500 ML 500 ML IV PRN (10:36)
[2018-03-09 10:41] VITALS: BP 108/53
[2018-03-09] MEDS ORDERED: HURRICAINE EXT TUBE (BENZOCAINE) XX PRN ×2 (10:45→12:45)
--- NOTE | 2018-03-09 11:07 | History & Physicial ---
History of Present Illness History of Present Illness Reason for visit/HPI To undergo colonoscopy with concomitant upper endoscopy regarding a history of passing black tarry stools and symptoms of GERD. Date of Admission 03/09/18 Date Seen by Provider: Mar 09, 2018 Time Seen by Provider: 11:05 I consulted on this patient on 03/09/18 11:05 Attending Physician Manuel Lord MD Admitting Physician Nilton Kyle DO Consult Allergies and Home Medications Allergies Coded Allergies: ARSALANANo Known Allergies (Verified Allergy, Unknown, 03/26/06) Home Medications Amlodipine Besylate 5 Mg Tablet, 5 MG PO DAILY, (Reported) Aspirin 81 Mg Tablet.dr, 81 MG PO DAILY, (Reported) Carvedilol 25 Mg Tablet, 25 MG PO BID, (Reported) Cholecalciferol (Vitamin D3) 1,000 Unit Capsule, 1,000 UNIT PO DAILY, (Reported) Dabigatran Etexilate Mesylate 150 Mg Capsule, 150 MG PO BID, (Reported) Furosemide 40 Mg Tablet, 80 MG PO DAILY, (Reported) TAKES 2 (40MG) TABLETS Gabapentin 300 Mg Capsule, 300 MG PO , (Reported) Glimepiride 4 Mg Tablet, 4 MG PO BID WITH MEALS, (Reported) Losartan Potassium 100 Mg Tablet, 100 MG PO DAILY, (Reported) Lovastatin 20 Mg Tablet, 20 MG PO HS, (Reported) Metformin HCl 1,000 Mg Tablet, 1,000 MG PO BID WITH MEALS, (Reported) [place] 3 Polyunsat Fatty Acids 1,000 Mg Cap, 1,000 MG PO DAILY, (Reported) Polyvinyl Alcohol/Povidone 15 Ml Drops, 1-2 DROPS OU QID PRN for DRY EYES, ( Reported) Potassium Chloride 10 Meq Tablet.er, 20 MEQ PO DAILY, (Reported) TAKES 2 (10MEQ) TABLETS Patient Home Medication List Home Medication List Reviewed: Yes Past Rhosweb-Ztopep-Wxsbth Hx Patient Social History Marrital Status: Employed/Student: retired Alcohol Use: Denies Use Recreational Drug Use: No Smoking Status: Former Smoker Former Smoker, Quit: Feb 11, 1985 Type Used: Cigarettes Recent Foreign Travel: No Contact w/other who traveled: No Recent Hopitalizations: No Immunizations Up To Date Tetanus Booster (TDap): Unknown Pediatric: No Date of Pneumonia Vaccine: Jul 19, 2011 Date of Influenza Vaccine: Jun 01, 2015 Seasonal Allergies Seasonal Allergies: No Surgeries Yes Coronary Stent Respiratory No Currently Using CPAP: No Currently Using BIPAP: No Cardiovascular Yes Atrial Fibrillation, Cardiomyopathy, Heart Attack Neurological No Neuropathy Reproductive System Hx Reproductive Disorders: No Sexually Transmitted Disease: No HIV/AIDS: No Female 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 Genitourinary No Gastrointestinal No Gastroesophageal Reflux Musculoskeletal No Arthritis Endocrine History of Endocrine Disorders: Yes Endocrine Disorders: Diabetes, Non-Insulin dep HEENT History of HEENT Disorders: Yes HEENT Disorders: Cataract Loss of Vision: Denies Hearing Impairment: Denies Cancer No Psychosocial History of Psychiatric Problem: Yes Behavioral Health Disorders: Depression Integumentary History of Skin or Integumenta: No Blood Transfusions History of Blood Disorders: No Adverse Reaction to a Blood Tr: No Family Medical History Family Hx: Cardiovascular disease 19 FATHER 19 MOTHER FH: stroke FHx: diabetes mellitus Constitutional: no symptoms reported EENTM: no symptoms reported Respiratory: no symptoms reported Cardiovascular: no symptoms reported Gastrointestinal: see HPI Genitourinary: no symptoms reported Musculoskeletal: no symptoms reported Skin: no symptoms reported Psychiatric/Neurological: No Symptoms Reported Physical Exam Vital Signs Vital Signs - First Documented 03/09/18 10:41 Temp 98.0 Pulse 76 Resp 20 B/P (MAP) 108/53 (71) Pulse Ox 92 O2 Delivery Room Air Capillary Refill : Height, Weight, BMI Height: 5', 1.00" Weight: 202lbs 0.0oz, [id number] Method:Stated ,38.2BMI General Appearance: No Apparent Distress Neck: Normal Inspection Respiratory: Lungs Clear Cardiovascular: Regular Rate, Rhythm Gastrointestinal: Non Tender, Soft Rectal: Deferred Neurologic/Psychiatric: Alert, Oriented x3 Skin: Warm/Dry Assessment/Plan Assessment and Plan Lady with symptoms of gastroesophageal reflux and a history of passing black tarry stools. 4 upper endoscopy with colonoscopy. Admission Diagnosis Admission Status: Other (Outpt Proc) MANUEL LORD MD Mar 09, 2018 11:06 am
--- NOTE | 2018-03-09 11:07 | Conscious Sedation/ASA ---
Conscious Sedation Pre-Proced Time Reviewed: 11:07 ASA Class: 3 Airway Mallampati Classification: ([place] appropriate class) I. II. III, IV Lungs Heart ASA score ASA 1: a normal healthy patient ASA 2: a patient with a mild systemic disease (mid diabetes, controlled hypertension, obesity ASA 3: a patient with a severe systemic disease that limits activity (angina , COPD, prior Myocardial infarction) ASA 4: a patient with an incapacitating disease that is a constant threat to life (CHF, renal failure) ASA 5: a moribund patient not expected to survive 24 hrs. (ruptured aneurysm) ASA 6: a declared brain patient whose organs are being harvested. For emergent operations, add the letter E after the classification Grade 1 Sedation Plan: Discussed options with patient/fam Note The patient is an appropriate candidate to undergo the planned procedure, sedation, and anesthesia. The patient immediately re-assessed prior to indication. MANUEL LORD MD Mar 09, 2018 11:07 am
[2018-03-09] MEDS ORDERED: HURRICAINE EXT TUBE (BENZOCAINE) ONE (11:45)
[2018-03-09] MEDS ORDERED: MIDAZOLAM 2 MG/2 ML (VERSED) VIAL ONE ×4 (11:45)
[2018-03-09] MEDS ORDERED: fentaNYL INJECTION 100 MCG/2 ML AMP ONE ×2 (11:45)
[2018-03-09] MEDS: fentaNYL INJECTION 100 MCG/2 ML AMP IVP PRN ×4 (11:52→12:18)
[2018-03-09] MEDS: MIDAZOLAM 2 MG/2 ML (VERSED) VIAL IVP PRN ×2 (12:00→12:08)
--- NOTE | 2018-03-09 12:35 | Endo Procedure Record ---
Endo Procedure Report Date of Procedure Last Colonoscopy: No Mar 09, 2018 Surgeon (s) MANUEL LORD MD Post Procedure/Op Diagnosis EGD: 2 mm gastric ulcer along the greater curvature with erythema. Short hiatal hernia Colonoscopy: Sigmoid diverticulosis Procedure Performed EGD with biopsy of gastric ulcer Colonoscopy to cecum Description of Procedure Anesthesia Type: Conscious Sedation Specimen(s) collected/removed Tissue from the gastric ulcer Description of the Procedure Indication for the procedures: This lady came in for an upper endoscopy with concomitant colonoscopy to evaluate symptoms of reflux and a history of passing dark stools. Informed consent was obtained after reviewing the procedures in detail. Description of the procedures: EGD/biopsy of gastric ulcer: She was placed in left lateral rectus position and her vital signs were monitored. Conscious sedation was achieved using Versed and fentanyl. The flexible gastroscope was then introduced down the esophagus, past the stomach, into the proximal duodenum. Findings: Esophagus: A short, uncomplicated hiatal hernia. Stomach: 2 mm ulcer at the greater curvature with erythema around it. There was no active bleeding. Biopsy from the edge of the ulcer was obtained. Duodenum: Normal. She tolerated the procedure well and was turned around in preparation for colonoscopy. Impression: Symptoms of reflux disease and melena. Gastric ulcer possibly the culprit. Colonoscopy: Digital rectal examination was unremarkable. The colonoscope was then introduced in the rectum and advanced all the way up to cecum. The scope was then withdrawn slowly and the mucosa examined in a systematic fashion. Finding: Sigmoid diverticulosis She tolerated the procedures well and was taken back to the nursing area in a stable condition. Impression: Melena possibly due to gastric ulcer. No colon polyps. Copy Copies To 1: ELIZABETH MALDONADO DO Copies To 2: SINDY WIGGINS MD FACP [facility] MANUEL LORD MD Mar 09, 2018 12:35 pm
[2018-03-09] MEDS ORDERED: PANT40TA2 PO (12:36)
--- NOTE | 2018-03-09 12:37 | Discharge Inst-Simple/Standard ---
Discharge Inst-Standard Discharge Medications New, Converted or Re-Newed RX: RX on Chart Patient Instructions/Follow Up Plan of Care/Instructions/FU: Follow-up with Dr. Kyle Activity as Tolerated: Yes Discharge Diet: No Restrictions MANUEL LROD MD Mar 09, 2018 12:37 pm
[2018-03-09 13:00] VITALS: BP 127/61
[2018-03-09 13:45] VITALS: BP 126/77
[2018-03-09 13:57] VITALS: BP 126/77
== END 2018-03-09 13:58 | disposition home or self-care (01) ==
LOC: ENDO 09:53
PROVIDERS: ATTEND Surgery
DX: K92.1 Melena (principal); K21.9 Gastro-esophageal reflux disease without esophagitis; K44.9 Diaphragmatic hernia without obstruction or gangrene; K25.9 Gastric ulcer, unspecified as acute or chronic, without hemorrhage or perforation; K57.30 Diverticulosis of large intestine without perforation or abscess without bleeding; I48.91 Unspecified atrial fibrillation; I42.9 Cardiomyopathy, unspecified; E11.43 Type 2 diabetes mellitus with diabetic autonomic (poly)neuropathy; I25.2 Old myocardial infarction; Z79.82 Long term (current) use of aspirin; Z79.84 Long term (current) use of oral hypoglycemic drugs; Z95.5 Presence of coronary angioplasty implant and graft; Z87.891 Personal history of nicotine dependence
CPT/HCPCS: 82962

== ENCOUNTER 2018-05-29 13:54 | Outpatient (RCR) | payer MEDICARE, MEDICAID ==
[~2018-05-29 13:54] MED LIST changes: +AMLO5TAB7 PO; +FERRIC CARBOXYMALTOSE (CANCER) 750 MG in NS (IVPB) CANCER CENTER 250 ML IV SCH; +GLIM1TAB PO; +IRON100V2 IV; -LOSA100T28 PO; +LOSA100T8 PO; +METF-399 PO; -METF10002 PO; +MINE3.5O2 OU; +PANT40TA2 PO; +PANT40TA3 PO; +SUCR1TAB36 PO
[2018-05-29] MEDS ORDERED: IRON SUCROSE 100 MG/5 ML (VENOFER) VIAL CANCER CTR IV SCH (14:45)
== END 2018-05-31 | disposition home or self-care (01) ==
LOC: ONC 13:54
PROVIDERS: ATTEND Internal Medicine Hematology & Oncology
DX: K92.2 Gastrointestinal hemorrhage, unspecified (principal)
CPT/HCPCS: 96374

== ENCOUNTER 2018-07-07 14:49 | Outpatient (RCR) | payer MEDICARE, MEDICAID ==
[2018-07-03 13:59] LABS: ABSOLUTE RETIC # 36 10e9/L (24-90); BASOPHILS % (AUTO) 0 % (0-10); EOSINOPHILS # (AUTO) 0.1 10^3/uL (0.0-0.3); EOSINOPHILS % (AUTO) 2 % (0-10); HEMATOCRIT 41 % (35-52); HEMOGLOBIN 12.5 G/DL (11.5-16.0); LYMPHOCYTES # (AUTO) 0.8 X 10^3 (1.0-4.0); LYMPHOCYTES % (AUTO) 10 % (12-44); MEAN CORPUSCULAR HEMOGLOBIN 26 PG (25-34); MEAN CORPUSCULAR HGB CONC 31 G/DL (32-36); MEAN CORPUSCULAR VOLUME 87 FL (80-99); MEAN PLATELET VOLUME 11.2 FL (7.4-10.4); MONOCYTES # (AUTO) 0.4 X 10^3 (0.0-1.0); MONOCYTES % (AUTO) 5 % (0-12); NEUTROPHILS # (AUTO) 6.8 X 10^3 (1.8-7.8); NEUTROPHILS % (AUTO) 83 % (42-75); PLATELET COUNT 242 10^3/uL (130-400); RED BLOOD COUNT 4.74 10^6/uL (4.35-5.85); RED CELL DISTRIBUTION WIDTH 24.1 % (10.0-14.5); RETICULOCYTE % 0.75 % (0.50-2.40); WHITE BLOOD COUNT 8.2 10^3/uL (4.3-11.0)
[2018-07-03 14:20] LABS: ALBUMIN 3.9 GM/DL (3.2-4.5); BILIRUBIN,TOTAL 0.5 MG/DL (0.1-1.0); CALCIUM 9.7 MG/DL (8.5-10.1); CREATININE SERUM 1.03 MG/DL (0.60-1.30)
[~2018-07-07 14:49] MED LIST changes: -FERRIC CARBOXYMALTOSE (CANCER) 750 MG in NS (IVPB) CANCER CENTER 250 ML IV SCH; +IRON SUCROSE 100 MG/5 ML (VENOFER) VIAL CANCER CTR IV SCH
== END 2018-08-30 | disposition home or self-care (01) ==
LOC: ONC 14:49
PROVIDERS: ATTEND Internal Medicine Hematology & Oncology
DX: D64.9 Anemia, unspecified (principal)
CPT/HCPCS: 36415; 80053; 82728; 85025; 85045; 96374; 99213

== ENCOUNTER 2018-11-16 13:43 | Outpatient (RCR) | payer MEDICARE, MEDICAID ==
[2018-10-01 14:10] LABS: BASOPHILS % (AUTO) 0 % (0-10); EOSINOPHILS # (AUTO) 0.1 10^3/uL (0.0-0.3); EOSINOPHILS % (AUTO) 2 % (0-10); HEMATOCRIT 40 % (35-52); HEMOGLOBIN 11.9 G/DL (11.5-16.0); LYMPHOCYTES # (AUTO) 0.7 X 10^3 (1.0-4.0); LYMPHOCYTES % (AUTO) 10 % (12-44); MEAN CORPUSCULAR HEMOGLOBIN 28 PG (25-34); MEAN CORPUSCULAR HGB CONC 30 G/DL (32-36); MEAN CORPUSCULAR VOLUME 92 FL (80-99); MEAN PLATELET VOLUME 11.2 FL (7.4-10.4); MONOCYTES # (AUTO) 0.4 X 10^3 (0.0-1.0); MONOCYTES % (AUTO) 6 % (0-12); NEUTROPHILS # (AUTO) 5.5 X 10^3 (1.8-7.8); NEUTROPHILS % (AUTO) 82 % (42-75); PLATELET COUNT 226 10^3/uL (130-400); RED CELL DISTRIBUTION WIDTH 16.1 % (10.0-14.5); WHITE BLOOD COUNT 6.6 10^3/uL (4.3-11.0)
[2018-10-01 14:33] LABS: ALBUMIN 3.7 GM/DL (3.2-4.5); BILIRUBIN,TOTAL 0.6 MG/DL (0.1-1.0); CALCIUM 9.1 MG/DL (8.5-10.1); CREATININE SERUM 1.02 MG/DL (0.60-1.30); POTASSIUM 4.6 MMOL/L (3.6-5.0); TOTAL PROTEIN 6.7 GM/DL (6.4-8.2)
[2018-11-12 14:53] LABS: BASOPHILS % (AUTO) 1 % (0-10); EOSINOPHILS # (AUTO) 0.2 10^3/uL (0.0-0.3); EOSINOPHILS % (AUTO) 2 % (0-10); HEMATOCRIT 39 % (35-52); HEMOGLOBIN 11.7 G/DL (11.5-16.0); LYMPHOCYTES % (AUTO) 13 % (12-44); MEAN CORPUSCULAR HEMOGLOBIN 28 PG (25-34); MEAN CORPUSCULAR HGB CONC 30 G/DL (32-36); MEAN CORPUSCULAR VOLUME 92 FL (80-99); MEAN PLATELET VOLUME 11.3 FL (7.4-10.4); MONOCYTES # (AUTO) 0.5 X 10^3 (0.0-1.0); MONOCYTES % (AUTO) 7 % (0-12); NEUTROPHILS # (AUTO) 6.2 X 10^3 (1.8-7.8); NEUTROPHILS % (AUTO) 78 % (42-75); PLATELET COUNT 277 10^3/uL (130-400); RED CELL DISTRIBUTION WIDTH 16.8 % (10.0-14.5); WHITE BLOOD COUNT 7.9 10^3/uL (4.3-11.0)
[~2018-11-16 13:43] MED LIST changes: -AMLO5TAB7 PO; +AMLO5TAB9 PO; -IRON SUCROSE 100 MG/5 ML (VENOFER) VIAL CANCER CTR IV SCH; +LOSA100T57 PO; -LOSA100T8 PO
== END 2018-12-30 | disposition home or self-care (01) ==
LOC: ONC 13:43
PROVIDERS: ATTEND Internal Medicine Hematology & Oncology
DX: D64.9 Anemia, unspecified (principal)
CPT/HCPCS: 36415; 80053; 82728; 85025; 99213

== ENCOUNTER 2019-01-07 16:20 | Inpatient (IN) | payer MEDICARE, MEDICAID | END 2019-01-10 13:40 | disposition home or self-care (01) | LOC: 4TH 16:20 → ICU 17:06 → 4TH 17:06 | DX: I11.0 Hypertensive heart disease with heart failure (principal); I50.32 Chronic diastolic (congestive) heart failure; I25.5 Ischemic cardiomyopathy; I48.91 Unspecified atrial fibrillation; I25.10 Atherosclerotic heart disease of native coronary artery without angina pectoris; E11.9 Type 2 diabetes mellitus without complications; I65.23 Occlusion and stenosis of bilateral carotid arteries; E78.5 Hyperlipidemia, unspecified; M19.91 Primary osteoarthritis, unspecified site; G51.0 Bell's palsy; E66.9 Obesity, unspecified; Z68.37 Body mass index [BMI] 37.0-37.9, adult; Z95.5 Presence of coronary angioplasty implant and graft; Z79.84 Long term (current) use of oral hypoglycemic drugs; Z87.11 Personal history of peptic ulcer disease; Z79.01 Long term (current) use of anticoagulants; Z87.891 Personal history of nicotine dependence ==

== ENCOUNTER 2019-01-26 18:59 | Inpatient (IN) | payer MEDICARE, MEDICAID ==
[2019-01-26] VITALS (13 sets, daily range): BP systolic 73–130; BP diastolic 40–95
[~2019-01-26] VITALS: Ht 156.2 cm; Wt 90.0 kg
[~2019-01-26 18:59] MED LIST changes: +FURO80TA3 PO
--- OUTSIDE RECORDS SUMMARY | 2019-01-26 19:06 | XMS REPORT | Continuity of Care Document ---
Author Organization Unknown Address Unknown Allergies Active Description Code Type Severity Reaction Onset Reported/Identified Relationship to Patient Clinical Status Yes NKANo Known Allergies NKA Miscellaneous Allergy Unknown N/A 03/09/2018 Medications There is no data. Problems Date Dx Coded Attending Type Code Diagnosis Diagnosed By 10/27/2011 Ot 490 10/27/2011 Ot 786.2 07/20/2014 ROSALIE POWELL FACC, SINDY FACP CCDS Ot 250.00 DIAB FILIBERTO WO COMPL, TYPE II OR UNSPEC TY 07/20/2014 ROSALIE POWELL FACC, SINDY FACP CCDS Ot 272.4 HYPERLIPIDEMIA NEC/NOS 07/20/2014 SINDY WIGGINS MD, FACC FACP CCDS Ot 278.01 MORBID OBESITY 07/20/2014 ROSALIE POWELL FACC, SINDY FACP CCDS Ot 414.01 CORONARY ATHEROSCLEROSIS OF [place] CORON 07/20/2014 SINDY WIGGINS MD, FACC FACP CCDS Ot 427.31 ATRIAL FIBRILLATION 07/20/2014 SINDY WIGGINS MD, FACC FACP CCDS Ot V45.82 PERCUTANEOUS TRANSLUM CORON ANGIOPLASTY 07/20/2014 SINDY WIGGINS MD, FACC FACP CCDS Ot V58.61 ANTICOAGULANTS,LT,CURRENT USE 07/20/2014 SINDY WIGGINS MD, FACC FACP CCDS Ot V58.69 OTH MED,LT,CURRENT USE 07/20/2014 ROSALIE POWELL FACC ALI FACP CCDS Ot V85.41 BODY MASS INDEX 40.0-44.9, ADULT 08/09/2014 BAIMA, JACOB L CITY CARRIER Ot 272.4 08/09/2014 BAIMA, JACOB L CITY CARRIER Ot 401.9 08/09/2014 BAIMA, JACOB L CITY CARRIER Ot 427.31 08/09/2014 BAIMA, JACOB L CITY CARRIER Ot 784.0 08/09/2014 BAIMA, JACOB L CITY CARRIER Ot 786.09 08/09/2014 BAIMA, JACOB L CITY CARRIER Ot 786.59 08/19/2014 BAIMA, JACOB L CITY CARRIER Ot 272.4 08/19/2014 BAIMA, JACOB L CITY CARRIER Ot 401.9 08/19/2014 BAIMA, JACOB L CITY CARRIER Ot 427.31 08/19/2014 BAIMA, JACOB L CITY CARRIER Ot 784.0 08/19/2014 BAIMA, JACOB L CITY CARRIER Ot 786.09 08/19/2014 BAIMA, JACOB L CITY CARRIER Ot 786.59 08/22/2014 BAIMA, JACOB L CITY CARRIER Ot 272.4 08/22/2014 BAIMA, JACOB L CITY CARRIER Ot 401.9 08/22/2014 BAIMA, JACOB L CITY CARRIER Ot 427.31 08/22/2014 BAIMA, JACOB L CITY CARRIER Ot 786.09 08/22/2014 BAIMA, JACOB L CITY CARRIER Ot V58.61 09/06/2014 BAIMA, JACOB L CITY CARRIER Ot 272.4 09/06/2014 BAIMA, JACOB L CITY CARRIER Ot 401.9 09/06/2014 BAIMA, JACOB L CITY CARRIER Ot 427.31 09/06/2014 BAIMA, JACOB L CITY CARRIER Ot 786.09 09/06/2014 BAIMA JACOB L CITY CARRIER Ot V58.61 01/03/2015 ELIZABETH MALDONADO DO Ot [...] 06/09/2015 Ot V58.69 06/09/2015 BAIMA, JACOB L CITY CARRIER Ot 272.4 06/09/2015 BAIMA, JACOB L CITY CARRIER Ot 401.9 06/09/2015 BAIMA, JACOB L CITY CARRIER Ot 427.31 06/09/2015 BAIMA, JACOB L CITY CARRIER Ot 786.09 06/09/2015 BAIMA, JACOB L CITY CARRIER Ot V58.61 06/09/2015 BAIMA, JACOB L CITY CARRIER Ot 272.4 06/09/2015 BAIMA, JACOB L CITY CARRIER Ot 401.9 06/09/2015 BAIMA, JACOB L CITY CARRIER Ot 427.31 06/09/2015 BAIMA, JACOB L CITY CARRIER Ot 784.0 06/09/2015 BAIMA, JACOB L CITY CARRIER Ot 786.09 06/09/2015 BAIMA, JACOB L [employer] CARRIER Ot 786.59 06/09/2015 ELIZABETH MALDONADO DO Ot [...] ALI FACP CCDS Ot I25.10 06/29/2015 ROSALIE KNIGHTC, ALI FACP CCDS Ot I48.91 06/29/2015 ROSALIE KNIGHTC, ALI FACP CCDS Ot R06.09 07/19/2015 ROSALIE KNIGHTC, ALI FACP CCDS Ot E78.5 07/19/2015 ROSALIE MD FACC, ALI FACP CCDS Ot I10 07/19/2015 ROSALIE POWELL FACC, ALI FACP CCDS Ot I25.10 07/19/2015 ROSALIE POWELL FACC, ALI FACP CCDS Ot I48.91 07/19/2015 ROSALIE POWELL FACC, ALI FACP CCDS Ot R06.09 07/24/2015 ROSALIE POWELL FACC, ALI FACP CCDS Ot E78.5 07/24/2015 ROSALIE POWELL FACC, ALI FACP CCDS Ot I10 07/24/2015 ROSALIE POWELL FACC, ALI FACP CCDS Ot I25.10 07/24/2015 ROSALIE POWELL FACC, ALI FACP CCDS Ot I48.91 07/24/2015 ROSALIE POWELL FACC, ALI FACP CCDS Ot R06.09 07/31/2015 ROSALIE POWELL FACC, ALI FACP CCDS Ot E78.5 07/31/2015 ROSALIE POWELL FACC, ALI FACP CCDS Ot I10 07/31/2015 ROSALIE POWELL FAC, ALI FACP CCDS Ot I25.10 07/31/2015 ROSALIE POWELL FAC, ALI FACP CCDS Ot I48.91 07/31/2015 ROSALIE POWELL [facility], ALI FACP CCDS Ot R06.09 08/14/2015 ELIZABETH MALDONADO DO Ot D64.9 ANEMIA, UNSPECIFIED 08/14/2015 ELIZABETH MALDONADO DO Ot 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 08/14/2015 ELIZABETH MALDONADO DO Ot E66.9 OBESITY, UNSPECIFIED 08/14/2015 ELIZABETH MALDONADO DO, Ot E78.5 HYPERLIPIDEMIA, UNSPECIFIED 08/14/2015 ELIZABETH MALDONADO DO Ot I10 ESSENTIAL (PRIMARY) HYPERTENSION 08/14/2015 ELIZABETH MALDONADO DO, Ot I25.10 ATHSCL HEART DISEASE OF [place] CORONARY 08/14/2015 ELIZABETH MALDONADO DO, Ot I27.2 OTHER SECONDARY PULMONARY HYPERTENSION 08/14/2015 ELIZABETH MALDONADO DO Ot I48.2 CHRONIC ATRIAL FIBRILLATION 08/14/2015 ELIZABETH MALDONADO DO Ot I50.31 ACUTE DIASTOLIC (CONGESTIVE) HEART FAILU 08/14/2015 ELIZABETH MALDONADO DO, Ot R09.02 HYPOXEMIA 08/14/2015 ELIZABETH MALDONADO DO Ot Z68.41 BODY MASS INDEX (BMI) 40.0-44.9, ADULT 08/14/2015 ELIZABETH MALDONADO DO Ot Z98.61 CORONARY ANGIOPLASTY STATUS 08/16/2015 ELIZABETH MALDONADO DO Ot R09.02 08/31/2015 ELIZABETH MALDONADO DO Ot R09.02 08/31/2015 ESTELITA RAO STUDENT SUCCESS COACH Ot 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 08/31/2015 ESTELITA RAO STUDENT SUCCESS COACH Ot H60.12 CELLULITIS OF LEFT EXTERNAL EAR 09/22/2015 ELIZABETH MALDONADO DO Ot R09.02 11/15/2015 NEELA POWELL, RAHEEL Gastelum Ot H91.90 11/28/2015 NEELA POWELL, RAHEEL Gastelum Ot H91.90 10/21/2017 BAIMA, JACOB L [employer] CARRIER Ot 272.4 HYPERLIPIDEMIA NEC/NOS 10/21/2017 BAIMA, JACOB L [employer] CARRIER Ot 401.9 HYPERTENSION NOS 10/21/2017 BAIMA, JACOB L [employer] CARRIER Ot 427.31 ATRIAL FIBRILLATION 10/21/2017 BAIMA, JACOB L [employer] CARRIER Ot 786.09 RESPIRATORY ABNORM NEC 10/21/2017 BAIMA, JACOB L CITY CARRIER Ot V58.61 ANTICOAGULANTS,LT,CURRENT USE 10/21/2017 BAIMA, JACOB L CITY CARRIER Ot 272.4 HYPERLIPIDEMIA NEC/NOS 10/21/2017 BAIMA, JACOB L CITY CARRIER Ot 401.9 HYPERTENSION NOS 10/21/2017 BAIMA, JACOB L CITY CARRIER Ot 427.31 ATRIAL FIBRILLATION 10/21/2017 BAIMA, JACOB L CITY CARRIER Ot 784.0 HEADACHE 10/21/2017 BAIMA, JACOB L CITY CARRIER Ot 786.09 RESPIRATORY ABNORM NEC 10/21/2017 BAIMA, JACOB L [employer] CARRIER Ot 786.59 CHEST PAIN NEC 10/21/2017 ELIZABETH MALDONADO DO Ot V45.82 PERCUTANEOUS TRANSLUM CORON ANGIOPLASTY 10/21/2017 ELIZABETH MALDONADO DO Ot V57.89 REHABILITATION PROC NEC 10/21/2017 ROSALIE POWELL FACC, SINDY KNIGHTP CCDS Ot E78.5 HYPERLIPIDEMIA, UNSPECIFIED 10/21/2017 ROSALIE POWELL FACC, ALI FACP CCDS Ot I10 ESSENTIAL (PRIMARY) HYPERTENSION 10/21/2017 ROSALIE POWELL FACC, SINDY FACP CCDS Ot I25.10 ATHSCL HEART DISEASE OF [place] CORONARY 10/21/2017 ROSALIE POWELL FACC, ALI FACP CCDS Ot I48.91 UNSPECIFIED ATRIAL FIBRILLATION 10/21/2017 ROSALIE POWELL FACC, ALI FACP CCDS Ot R06.09 OTHER FORMS OF DYSPNEA 10/21/2017 ROSALIE POWELL FACC, ALI FACP CCDS Ot E78.5 HYPERLIPIDEMIA, UNSPECIFIED 10/21/2017 ROSALIE POWELL FACC, ALI FACP CCDS Ot I10 ESSENTIAL (PRIMARY) HYPERTENSION 10/21/2017 ROSALIE POWELL FACC, ALI FACP CCDS Ot I25.10 ATHSCL HEART DISEASE OF [place] CORONARY 10/21/2017 ROSALIE POWELL FACC, ALI FACP CCDS Ot I48.91 UNSPECIFIED ATRIAL FIBRILLATION 10/21/2017 ROSALIE POWELL FACC, ALI FACP CCDS Ot R06.09 OTHER FORMS OF DYSPNEA 10/21/2017 ERICA GARCIA, ELIZABETH Quintanilla Ot R09.02 HYPOXEMIA 10/21/2017 NEELA POWELL, RAHEEL Gastelum Ot H91.90 UNSPECIFIED HEARING LOSS, UNSPECIFIED EA 10/22/2017 ROSALIE POWELL FACC, ALI FACP CCDS Ot E78.4 OTHER HYPERLIPIDEMIA 10/22/2017 ROSALIE POWELL FACC, ALI FACP CCDS Ot 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 10/22/2017 ROSALIE POWELL FACC, ALI FACP CCDS Ot I10 ESSENTIAL (PRIMARY) HYPERTENSION 10/22/2017 ROSALIE POWELL FACC, ALI FACP CCDS Ot I25.10 ATHSCL HEART DISEASE OF [place] CORONARY 10/22/2017 ROSALIE POWELL FACC, ALI FACP CCDS Ot I48.2 CHRONIC ATRIAL FIBRILLATION 10/22/2017 ROSALIE POWELL FACC, ALI FACP CCDS Ot I65.23 OCCLUSION AND STENOSIS OF BILATERAL [place] 10/22/2017 ROSALIE POWELL FACC, ALI FACP CCDS Ot R06.09 OTHER FORMS OF DYSPNEA 11/20/2017 ROSALIE POWELL FACC, ALI FACP CCDS Ot E78.4 OTHER HYPERLIPIDEMIA 11/20/2017 ROSALIE KNIGHTC, ALI FACP CCDS Ot 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 11/20/2017 ROSALIE KNIGHTC, ALI FACP CCDS Ot I10 ESSENTIAL (PRIMARY) HYPERTENSION 11/20/2017 ROSALIE POWELL FACC, ALI FACP CCDS Ot I25.10 ATHSCL HEART DISEASE OF [place] CORONARY 11/20/2017 ROSALIE POWELL FAC, ALI FACP CCDS Ot I48.2 CHRONIC ATRIAL FIBRILLATION 11/20/2017 ROSALIE POWELL FACC, ALI FACP CCDS Ot I65.23 OCCLUSION AND STENOSIS OF BILATERAL [place] 11/20/2017 ROSALIE POWELL FACC, ALI FACP CCDS Ot R06.09 OTHER FORMS OF DYSPNEA 02/11/2018 LORIE YODER MD Ot D50.0 IRON DEFICIENCY ANEMIA SECONDARY TO BLOO 02/11/2018 LORIE YODER MD Ot E11.42 TYPE 2 DIABETES MELLITUS WITH DIABETIC P 02/11/2018 LORIE YODER MD Ot F32.9 MAJOR DEPRESSIVE DISORDER, SINGLE EPISOD 02/11/2018 LORIE YODER MD Ot 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 02/11/2018 LORIE YODER MD Ot I25.10 ATHSCL HEART DISEASE OF [place] CORONARY 02/11/2018 LORIE YODER MD Ot I25.2 OLD MYOCARDIAL INFARCTION 02/11/2018 LORIE YODER MD Ot I42.9 CARDIOMYOPATHY, UNSPECIFIED 02/11/2018 LORIE YODER MD Ot I48.91 UNSPECIFIED ATRIAL FIBRILLATION 02/11/2018 LORIE YODER MD Ot R29.6 REPEATED FALLS 02/11/2018 LORIE YODER MD Ot Z87.891 PERSONAL HISTORY OF NICOTINE DEPENDENCE 02/11/2018 LORIE YODER MD Ot Z91.81 HISTORY OF FALLING 02/11/2018 LORIE YODER MD Ot D50.0 IRON DEFICIENCY ANEMIA SECONDARY TO BLOO 02/11/2018 LORIE YODER MD Ot E11.42 TYPE 2 DIABETES MELLITUS WITH DIABETIC P 02/11/2018 LORIE YODER MD Ot F32.9 MAJOR DEPRESSIVE DISORDER, SINGLE EPISOD 02/11/2018 LORIE YODER MD Ot 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 02/11/2018 LORIE YODER MD Ot I25.10 ATHSCL HEART DISEASE OF [place] CORONARY 02/11/2018 LORIE YODER MD Ot I25.2 OLD MYOCARDIAL INFARCTION 02/11/2018 LORIE YODER MD Ot I42.9 CARDIOMYOPATHY, UNSPECIFIED 02/11/2018 LORIE YODER MD Ot I48.91 UNSPECIFIED ATRIAL FIBRILLATION 02/11/2018 PARESH POWELL, LORIE Martinez Ot R29.6 REPEATED FALLS 02/11/2018 PARESH POWELL, LORIE Martinez Ot Z87.891 PERSONAL HISTORY OF NICOTINE DEPENDENCE 02/11/2018 PARESH POWELL, LORIE Martinez Ot Z91.81 HISTORY OF FALLING 03/02/2018 RISA POWELL, MANUEL Alva Ot Z01.818 ENCOUNTER FOR OTHER PREPROCEDURAL EXAMIN 03/05/2018 RISA POWELL, MANUEL Alva Ot Z01.818 ENCOUNTER FOR OTHER PREPROCEDURAL EXAMIN 03/09/2018 BAIMA, JACOB L CITY CARRIER Ot 272.4 HYPERLIPIDEMIA NEC/NOS 03/09/2018 BAIMA, JACOB L [employer] CARRIER Ot 401.9 HYPERTENSION NOS 03/09/2018 BAIMA, JACOB L CITY CARRIER Ot 427.31 ATRIAL FIBRILLATION 03/09/2018 BAIMA, JACOB L [employer] CARRIER Ot 786.09 RESPIRATORY ABNORM NEC 03/09/2018 BAIMA, JACOB L CITY CARRIER Ot V58.61 ANTICOAGULANTS,LT,CURRENT USE 03/09/2018 BAIMA, JACOB L [employer] CARRIER Ot 272.4 HYPERLIPIDEMIA NEC/NOS 03/09/2018 BAIMA, JACOB L CITY CARRIER Ot 401.9 HYPERTENSION NOS 03/09/2018 BAIMA, JACOB L [employer] CARRIER Ot 427.31 ATRIAL FIBRILLATION 03/09/2018 BAIMA, JACOB L CITY CARRIER Ot 784.0 HEADACHE 03/09/2018 BAIMA, JACOB L CITY CARRIER Ot 786.09 RESPIRATORY ABNORM NEC 03/09/2018 BAIMA, JACOB L [employer] CARRIER Ot 786.59 CHEST PAIN NEC 03/09/2018 ELIZABETH MALDONADO DO Ot V45.82 PERCUTANEOUS TRANSLUM CORON ANGIOPLASTY 03/09/2018 ELIZABETH MALDONADO DO Ot V57.89 REHABILITATION PROC NEC 03/09/2018 ROSALIE POWELL FACC, SINDY FACP CCDS Ot E78.5 HYPERLIPIDEMIA, UNSPECIFIED 03/09/2018 ROSALIE POWELL FACC, SINDY FACP CCDS Ot I10 ESSENTIAL (PRIMARY) HYPERTENSION 03/09/2018 ROSALIE POWELL FACC, SINDY FACP CCDS Ot I25.10 ATHSCL HEART DISEASE OF [place] CORONARY 03/09/2018 ROSALIE POWELL FACC, SINDY KNIGHTP CCDS Ot I48.91 UNSPECIFIED ATRIAL FIBRILLATION 03/09/2018 ROSALIE MD FACC, ALI FACP CCDS Ot R06.09 OTHER FORMS OF DYSPNEA 03/09/2018 ROSALIE POWELL FACC, ALI FACP CCDS Ot E78.5 HYPERLIPIDEMIA, UNSPECIFIED 03/09/2018 ROSALIE POWELL FACC, ALI FACP CCDS Ot I10 ESSENTIAL (PRIMARY) HYPERTENSION 03/09/2018 ROSALIE POWELL FACC, ALI FACP CCDS Ot I25.10 ATHSCL HEART DISEASE OF [place] CORONARY 03/09/2018 ROSALIE POWELL FACC, ALI FACP CCDS Ot I48.91 UNSPECIFIED ATRIAL FIBRILLATION 03/09/2018 ROSALIE POWELL FACC, ALI FACP CCDS Ot R06.09 OTHER FORMS OF DYSPNEA 03/09/2018 ERICA GARCIA, ELIZABETH Quintanilla Ot R09.02 HYPOXEMIA 03/09/2018 RAHEEL KEITA MD Ot H91.90 UNSPECIFIED HEARING LOSS, UNSPECIFIED EA 03/09/2018 ROSALIE POWELL FACC, ALI FACP CCDS Ot E78.4 OTHER HYPERLIPIDEMIA 03/09/2018 ROSALIE POWELL FACRolf, ALI FACP CCDS Ot 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 03/09/2018 ROSALIE POWELL FACC, ALI FACP CCDS Ot I10 ESSENTIAL (PRIMARY) HYPERTENSION 03/09/2018 ROSALIE POWELL FACC, ALI FACP CCDS Ot I25.10 ATHSCL HEART DISEASE OF [place] CORONARY 03/09/2018 ROSALIE POWELL FACC, ALI FACP CCDS Ot I48.2 CHRONIC ATRIAL FIBRILLATION 03/09/2018 ROSALIE POWELL FACC, ALI FACP CCDS Ot I65.23 OCCLUSION AND STENOSIS OF BILATERAL [place] 03/09/2018 ROSALIE POWELL FACC, ALI FACP CCDS Ot R06.09 OTHER FORMS OF DYSPNEA 03/09/2018 RISA POWELL, MANUEL Alva Ot E11.43 TYPE 2 DIABETES W DIABETIC AUTONOMIC (PO 03/09/2018 RISA POWELL, MANUEL Alva Ot I25.2 OLD MYOCARDIAL INFARCTION 03/09/2018 MANUEL LORD MD Ot I42.9 CARDIOMYOPATHY, UNSPECIFIED 03/09/2018 MANUEL LORD MD Ot I48.91 UNSPECIFIED ATRIAL FIBRILLATION 03/09/2018 MANUEL LORD MD Ot K21.9 GASTRO-ESOPHAGEAL REFLUX DISEASE WITHOUT 03/09/2018 MANUEL LORD MD, Ot K25.9 GASTRIC ULCER, UNSP ACUTE OR CHRONIC, 03/09/2018 MANUEL LORD MD Ot K44.9 DIAPHRAGMATIC HERNIA WITHOUT OBSTRUCTION 03/09/2018 MANUEL LORD MD Ot K57.30 DVRTCLOS OF LG INT W/O PERFORATION OR AB 03/09/2018 MANUEL LORD MD Ot K92.1 MELENA 03/09/2018 MANUEL LORD MD Ot Z79.82 SENIOR ANALYST MARKET INTELLIGENCE (CURRENT) USE OF ASPIRIN 03/09/2018 MANUEL LORD MD Ot Z79.84 CORRECTION (CURRENT) USE OF ORAL HYPOGLYC 03/09/2018 MANUEL LORD MD Ot Z87.891 PERSONAL HISTORY OF NICOTINE DEPENDENCE 03/09/2018 MANUEL LORD MD Ot Z95.5 PRESENCE OF CORONARY ANGIOPLASTY IMPLANT 03/11/2018 MANUEL LORD MD Ot E11.43 TYPE 2 DIABETES W DIABETIC AUTONOMIC (PO 03/11/2018 MANUEL LORD MD Ot I25.2 OLD MYOCARDIAL INFARCTION 03/11/2018 MANUEL LORD MD Ot I42.9 CARDIOMYOPATHY, UNSPECIFIED 03/11/2018 MANUEL LORD MD Ot I48.91 UNSPECIFIED ATRIAL FIBRILLATION 03/11/2018 MANUEL LORD MD Ot K21.9 GASTRO-ESOPHAGEAL REFLUX DISEASE WITHOUT 03/11/2018 MANUEL LORD MD Ot K25.9 GASTRIC ULCER, UNSP ACUTE OR CHRONIC, 03/11/2018 MANUEL LORD MD Ot K44.9 DIAPHRAGMATIC HERNIA WITHOUT OBSTRUCTION 03/11/2018 MANUEL LORD MD Ot K57.30 DVRTCLOS OF LG INT W/O PERFORATION OR AB 03/11/2018 MANUEL LORD MD Ot K92.1 MELENA 03/11/2018 MANUEL LORD MD Ot Z79.82 SENIOR ANALYST MARKET INTELLIGENCE (CURRENT) USE OF ASPIRIN 03/11/2018 MANUEL LORD MD Ot Z79.84 CORRECTION (CURRENT) USE OF ORAL HYPOGLYC 03/11/2018 MANUEL LORD MD Ot Z87.891 PERSONAL HISTORY OF NICOTINE DEPENDENCE 03/11/2018 MANUEL LORD MD Ot Z95.5 PRESENCE OF CORONARY ANGIOPLASTY IMPLANT 03/17/2018 MANUEL LORD MD Ot E11.43 TYPE 2 DIABETES W DIABETIC AUTONOMIC (PO 03/17/2018 MANUEL LORD MD Ot I25.2 OLD MYOCARDIAL INFARCTION 03/17/2018 MANUEL LORD MD Ot I42.9 CARDIOMYOPATHY, UNSPECIFIED 03/17/2018 MANUEL LORD MD, Ot I48.91 UNSPECIFIED ATRIAL FIBRILLATION 03/17/2018 MANUEL LORD MD, Ot K21.9 GASTRO-ESOPHAGEAL REFLUX DISEASE WITHOUT 03/17/2018 MANUEL LORD MD, Ot K25.9 GASTRIC ULCER, UNSP ACUTE OR CHRONIC, 03/17/2018 MANUEL LORD MD Ot K44.9 DIAPHRAGMATIC HERNIA WITHOUT OBSTRUCTION 03/17/2018 MANUEL LORD MD, Ot K57.30 DVRTCLOS OF LG INT W/O PERFORATION OR AB 03/17/2018 MANUEL LORD MD Ot K92.1 MELENA 03/17/2018 MANUEL LORD MD Ot Z79.82 SENIOR ANALYST MARKET INTELLIGENCE (CURRENT) USE OF ASPIRIN 03/17/2018 MANUEL LORD MD, Ot Z79.84 CORRECTION (CURRENT) USE OF ORAL HYPOGLYC 03/17/2018 MANUEL LORD MD, Ot Z87.891 PERSONAL HISTORY OF NICOTINE DEPENDENCE 03/17/2018 MANUEL LORD MD Ot Z95.5 PRESENCE OF CORONARY ANGIOPLASTY IMPLANT 05/26/2018 LORIE YODER MD Ot D50.0 IRON DEFICIENCY ANEMIA SECONDARY TO BLOO 05/26/2018 LORIE YODER MD Ot E11.9 TYPE 2 DIABETES MELLITUS WITHOUT COMPLIC 05/26/2018 LORIE YODER MD Ot E66.9 OBESITY, UNSPECIFIED 05/26/2018 LORIE YODER MD Ot E78.5 HYPERLIPIDEMIA, UNSPECIFIED 05/26/2018 LORIE YODER MD Ot G51.8 OTHER DISORDERS OF FACIAL NERVE 05/26/2018 LORIE YODER MD Ot I11.0 HYPERTENSIVE HEART DISEASE WITH HEART FA 05/26/2018 LORIE YODER MD, Ot I25.10 ATHSCL HEART DISEASE OF [place] CORONARY 05/26/2018 LORIE YODER MD, Ot I48.91 UNSPECIFIED ATRIAL FIBRILLATION 05/26/2018 LORIE YODER MD, Ot I50.33 ACUTE ON CHRONIC DIASTOLIC (CONGESTIVE) 05/26/2018 LORIE YODER MD Ot I65.23 OCCLUSION AND STENOSIS OF BILATERAL [place] 05/26/2018 LORIE YODER MD, Ot K21.9 GASTRO-ESOPHAGEAL REFLUX DISEASE WITHOUT 05/26/2018 LORIE YODER MD, Ot K27.9 PEPTIC ULC, SITE UNSP, UNSP AC OR CHR 05/26/2018 LORIE YODER MD, Ot K44.9 DIAPHRAGMATIC HERNIA WITHOUT OBSTRUCTION 05/26/2018 LORIE YODER MD, Ot M19.91 PRIMARY OSTEOARTHRITIS, UNSPECIFIED SITE 05/26/2018 LORIE YODER MD, Ot Z68.41 BODY MASS INDEX (BMI) 40.0-44.9, ADULT 05/26/2018 LORIE YODER MD, Ot Z79.01 CORRECTION (CURRENT) USE OF ANTICOAGULANT 05/26/2018 LORIE YODER MD, Ot 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), AND CEREB INFRC W 05/26/2018 LORIE YODER MD, Ot Z87.891 PERSONAL HISTORY OF NICOTINE DEPENDENCE 05/26/2018 LORIE YODER MD Ot Z95.5 PRESENCE OF CORONARY ANGIOPLASTY IMPLANT 05/27/2018 LORIE YODER MD Ot D50.0 IRON DEFICIENCY ANEMIA SECONDARY TO BLOO 05/27/2018 LORIE YODER MD Ot E11.9 TYPE 2 DIABETES MELLITUS WITHOUT COMPLIC 05/27/2018 LORIE YODER MD Ot E66.9 OBESITY, UNSPECIFIED 05/27/2018 LORIE YODER MD Ot E78.5 HYPERLIPIDEMIA, UNSPECIFIED 05/27/2018 LORIE YODER MD Ot G51.8 OTHER DISORDERS OF FACIAL NERVE 05/27/2018 LORIE YODER MD Ot I11.0 HYPERTENSIVE HEART DISEASE WITH HEART FA 05/27/2018 LORIE YODER MD Ot I25.10 ATHSCL HEART DISEASE OF [place] CORONARY 05/27/2018 LORIE YODER MD Ot I48.91 UNSPECIFIED ATRIAL FIBRILLATION 05/27/2018 LORIE YODER MD Ot I50.33 ACUTE ON CHRONIC DIASTOLIC (CONGESTIVE) 05/27/2018 LORIE YODER MD Ot I65.23 OCCLUSION AND STENOSIS OF BILATERAL [place] 05/27/2018 LORIE YODER MD Ot K21.9 GASTRO-ESOPHAGEAL REFLUX DISEASE WITHOUT 05/27/2018 LORIE YODER MD Ot K27.9 PEPTIC ULC, SITE UNSP, UNSP AC OR CHR 05/27/2018 LORIE YODER MD, Ot K44.9 DIAPHRAGMATIC HERNIA WITHOUT OBSTRUCTION 05/27/2018 LORIE YODER MD, Ot M19.91 PRIMARY OSTEOARTHRITIS, UNSPECIFIED SITE 05/27/2018 LORIE YODER MD Ot Z68.41 BODY MASS INDEX (BMI) 40.0-44.9, ADULT 05/27/2018 LORIE YODER MD Ot Z79.01 SENIOR ANALYST MARKET INTELLIGENCE (CURRENT) USE OF ANTICOAGULANT 05/27/2018 LORIE YODER MD, Ot 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), AND CEREB INFRC W 05/27/2018 LORIE YODER MD, Ot Z87.891 PERSONAL HISTORY OF NICOTINE DEPENDENCE 05/27/2018 LORIE YODER MD, Ot Z95.5 PRESENCE OF CORONARY ANGIOPLASTY IMPLANT 05/27/2018 LORIE YODER MD Ot B96.81 HELICOBACTER PYLORI THE CAUSE OF DISE 05/27/2018 LORIE YODER MD Ot D50.0 IRON DEFICIENCY ANEMIA SECONDARY TO BLOO 05/27/2018 LORIE YODER MD Ot E11.40 TYPE 2 DIABETES MELLITUS WITH DIABETIC N 05/27/2018 LORIE YODER MD Ot E66.9 OBESITY, UNSPECIFIED 05/27/2018 LORIE YODER MD Ot E78.5 HYPERLIPIDEMIA, UNSPECIFIED 05/27/2018 LORIE YODER MD Ot F32.9 MAJOR DEPRESSIVE DISORDER, SINGLE EPISOD 05/27/2018 LORIE YODER MD Ot 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 05/27/2018 LORIE YODER MD Ot I11.0 HYPERTENSIVE HEART DISEASE WITH HEART FA 05/27/2018 LORIE YODER MD Ot I25.10 ATHSCL HEART DISEASE OF [place] CORONARY 05/27/2018 LORIE YODER MD Ot I25.2 OLD MYOCARDIAL INFARCTION 05/27/2018 LORIE YODER MD Ot I42.9 CARDIOMYOPATHY, UNSPECIFIED 05/27/2018 LORIE YODER MD Ot I48.91 UNSPECIFIED ATRIAL FIBRILLATION 05/27/2018 LORIE YODER MD Ot I50.33 ACUTE ON CHRONIC DIASTOLIC (CONGESTIVE) 05/27/2018 LORIE YODER MD Ot I65.23 OCCLUSION AND STENOSIS OF BILATERAL CALVO 05/27/2018 LORIE YODER MD Ot K21.9 GASTRO-ESOPHAGEAL REFLUX DISEASE WITHOUT 05/27/2018 LORIE YODER MD, Ot K25.9 GASTRIC ULCER, UNSP ACUTE OR CHRONIC, 05/27/2018 LORIE YODER MD, Ot K29.70 GASTRITIS, UNSPECIFIED, WITHOUT BLEEDING 05/27/2018 LORIE YODER MD Ot K44.9 DIAPHRAGMATIC HERNIA WITHOUT OBSTRUCTION 05/27/2018 LORIE YODER MD, Ot K57.90 DVRTCLOS OF INTEST, PART UNSP, W/O PERF 05/27/2018 LORIE YODER MD, Ot M19.91 PRIMARY OSTEOARTHRITIS, UNSPECIFIED SITE 05/27/2018 LORIE YODER MD, Ot R71.8 OTHER ABNORMALITY OF RED BLOOD CELLS 05/27/2018 LORIE YODER MD, Ot Z68.41 BODY MASS INDEX (BMI) 40.0-44.9, ADULT 05/27/2018 LORIE YODER MD Ot Z79.01 CORRECTION (CURRENT) USE OF ANTICOAGULANT 05/27/2018 LORIE YODER MD Ot Z79.84 CORRECTION (CURRENT) USE OF ORAL HYPOGLYC 05/27/2018 LORIE YODER MD Ot 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), AND CEREB INFRC W 05/27/2018 LORIE YODER MD, Ot Z87.891 PERSONAL HISTORY OF NICOTINE DEPENDENCE 05/27/2018 LORIE YODER MD Ot Z95.5 PRESENCE OF CORONARY ANGIOPLASTY IMPLANT 05/27/2018 LORIE YODER MD Ot B96.81 HELICOBACTER PYLORI THE CAUSE OF DISE 05/27/2018 LORIE YODER MD Ot D50.0 IRON DEFICIENCY ANEMIA SECONDARY TO BLOO 05/27/2018 LORIE YODER MD Ot E11.40 TYPE 2 DIABETES MELLITUS WITH DIABETIC N 05/27/2018 LORIE YODER MD Ot E66.9 OBESITY, UNSPECIFIED 05/27/2018 LORIE YODER MD Ot E78.5 HYPERLIPIDEMIA, UNSPECIFIED 05/27/2018 LORIE YODER MD Ot F32.9 MAJOR DEPRESSIVE DISORDER, SINGLE EPISOD 05/27/2018 LORIE YODER MD Ot 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 05/27/2018 LORIE YODER MD, Ot I11.0 HYPERTENSIVE HEART DISEASE WITH HEART FA 05/27/2018 LORIE YODER MD, Ot I25.10 ATHSCL HEART DISEASE OF [place] CORONARY 05/27/2018 LORIE YODER MD, Ot I25.2 OLD MYOCARDIAL INFARCTION 05/27/2018 LORIE YODER MD, Ot I42.9 CARDIOMYOPATHY, UNSPECIFIED 05/27/2018 LORIE YODER MD, Ot I48.91 UNSPECIFIED ATRIAL FIBRILLATION 05/27/2018 LORIE YODER MD, Ot I50.33 ACUTE ON CHRONIC DIASTOLIC (CONGESTIVE) 05/27/2018 LORIE YODER MD, Ot I65.23 OCCLUSION AND STENOSIS OF BILATERAL [place] 05/27/2018 LORIE YODER MD, Ot K21.9 GASTRO-ESOPHAGEAL REFLUX DISEASE WITHOUT 05/27/2018 LORIE YODER MD, Ot K25.9 GASTRIC ULCER, UNSP ACUTE OR CHRONIC, 05/27/2018 LORIE YODER MD Ot K29.70 GASTRITIS, UNSPECIFIED, WITHOUT BLEEDING 05/27/2018 LORIE YODER MD, Ot K44.9 DIAPHRAGMATIC HERNIA WITHOUT OBSTRUCTION 05/27/2018 LORIE YODER MD, Ot K57.90 DVRTCLOS OF INTEST, PART UNSP, W/O PERF 05/27/2018 LORIE YODER MD, Ot M19.91 PRIMARY OSTEOARTHRITIS, UNSPECIFIED SITE 05/27/2018 LORIE YODER MD Ot R71.8 OTHER ABNORMALITY OF RED BLOOD CELLS 05/27/2018 LORIE YODER MD Ot Z68.41 BODY MASS INDEX (BMI) 40.0-44.9, ADULT 05/27/2018 LORIE YODER MD, Ot Z79.01 SENIOR ANALYST [employer]LLIGENCE (CURRENT) USE OF ANTICOAGULANT 05/27/2018 LORIE YODER MD, Ot Z79.84 SENIOR ANALYST [employer]TELLIGENCE (CURRENT) USE OF ORAL HYPOGLYC 05/27/2018 LORIE YODER MD, Ot 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), AND CEREB INFRC W 05/27/2018 LORIE YODER MD, Ot Z87.891 PERSONAL HISTORY OF NICOTINE DEPENDENCE 05/27/2018 LORIE YODER MD Ot Z95.5 PRESENCE OF CORONARY ANGIOPLASTY IMPLANT 05/28/2018 LORIE YODER MD Ot B96.81 HELICOBACTER PYLORI THE CAUSE OF DISE 05/28/2018 LORIE YODER MD, Ot D50.0 IRON DEFICIENCY ANEMIA SECONDARY TO BLOO 05/28/2018 LORIE YODER MD Ot E11.40 TYPE 2 DIABETES MELLITUS WITH DIABETIC N 05/28/2018 LORIE YODER MD Ot E66.9 OBESITY, UNSPECIFIED 05/28/2018 LORIE YODER MD Ot E78.5 HYPERLIPIDEMIA, UNSPECIFIED 05/28/2018 LORIE YODER MD, Ot F32.9 MAJOR DEPRESSIVE DISORDER, SINGLE EPISOD 05/28/2018 LORIE YODER MD, Ot 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 05/28/2018 LORIE YODER MD, Ot I11.0 HYPERTENSIVE HEART DISEASE WITH HEART FA 05/28/2018 LORIE YODER MD, Ot I25.10 ATHSCL HEART DISEASE OF [place] CORONARY 05/28/2018 LORIE YODER MD, Ot I25.2 OLD MYOCARDIAL INFARCTION 05/28/2018 LORIE YODER MD Ot I42.9 CARDIOMYOPATHY, UNSPECIFIED 05/28/2018 LORIE YODER MD Ot I48.91 UNSPECIFIED ATRIAL FIBRILLATION 05/28/2018 LORIE YODER MD Ot I50.33 ACUTE ON CHRONIC DIASTOLIC (CONGESTIVE) 05/28/2018 LORIE YODER MD Ot I65.23 OCCLUSION AND STENOSIS OF BILATERAL [place] 05/28/2018 LORIE YODER MD, Ot K21.9 GASTRO-ESOPHAGEAL REFLUX DISEASE WITHOUT 05/28/2018 LORIE YODER MD Ot K25.9 GASTRIC ULCER, UNSP ACUTE OR CHRONIC, 05/28/2018 LORIE YODER MD Ot K29.70 GASTRITIS, UNSPECIFIED, WITHOUT BLEEDING 05/28/2018 LORIE YODER MD, Ot K44.9 DIAPHRAGMATIC HERNIA WITHOUT OBSTRUCTION 05/28/2018 LORIE YODER MD Ot K57.90 DVRTCLOS OF INTEST, PART UNSP, W/O PERF 05/28/2018 LORIE YODER MD Ot M19.91 PRIMARY OSTEOARTHRITIS, UNSPECIFIED SITE 05/28/2018 LORIE YODER MD Ot R71.8 OTHER ABNORMALITY OF RED BLOOD CELLS 05/28/2018 LORIE YODER MD Ot Z68.41 BODY MASS INDEX (BMI) 40.0-44.9, ADULT 05/28/2018 LORIE YODER MD, Ot Z79.01 CORRECTION (CURRENT) USE OF ANTICOAGULANT 05/28/2018 LORIE YODER MD, Ot Z79.84 CORRECTION (CURRENT) USE OF ORAL HYPOGLYC 05/28/2018 LORIE YODER MD, Ot 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), AND CEREB INFRC W 05/28/2018 LORIE YODER MD, Ot Z87.891 PERSONAL HISTORY OF NICOTINE DEPENDENCE 05/28/2018 LORIE YODER MD, Ot Z95.5 PRESENCE OF CORONARY ANGIOPLASTY IMPLANT 05/28/2018 LORIE YODER MD, Ot B96.81 HELICOBACTER PYLORI THE CAUSE OF DISE 05/28/2018 LORIE YODER MD, Ot D50.0 IRON DEFICIENCY ANEMIA SECONDARY TO BLOO 05/28/2018 LORIE YODER MD Ot E11.40 TYPE 2 DIABETES MELLITUS WITH DIABETIC N 05/28/2018 LORIE YODER MD Ot E11.65 TYPE 2 DIABETES MELLITUS WITH HYPERGLYCE 05/28/2018 LORIE YODER MD Ot E66.9 OBESITY, UNSPECIFIED 05/28/2018 LORIE YODER MD, Ot E78.5 HYPERLIPIDEMIA, UNSPECIFIED 05/28/2018 LORIE YODER MD Ot F32.9 MAJOR DEPRESSIVE DISORDER, SINGLE EPISOD 05/28/2018 LORIE YODER MD Ot 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 05/28/2018 LORIE YODER MD Ot I11.0 HYPERTENSIVE HEART DISEASE WITH HEART FA 05/28/2018 LORIE YODER MD, Ot I25.10 ATHSCL HEART DISEASE OF [place] CORONARY 05/28/2018 LORIE YODER MD, Ot I25.2 OLD MYOCARDIAL INFARCTION 05/28/2018 LORIE YODER MD, Ot I42.9 CARDIOMYOPATHY, UNSPECIFIED 05/28/2018 LORIE YODER MD, Ot I48.91 UNSPECIFIED ATRIAL FIBRILLATION 05/28/2018 LORIE YODER MD, Ot 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 05/28/2018 LORIE YODER MD, Ot I50.33 ACUTE ON CHRONIC DIASTOLIC (CONGESTIVE) 05/28/2018 LORIE YODER MD Ot I65.23 OCCLUSION AND STENOSIS OF BILATERAL CALVO 05/28/2018 LORIE YODER MD Ot K21.9 GASTRO-ESOPHAGEAL REFLUX DISEASE WITHOUT 05/28/2018 LORIE YODER MD, Ot K25.9 GASTRIC ULCER, UNSP ACUTE OR CHRONIC, 05/28/2018 LORIE YODER MD, Ot K29.70 GASTRITIS, UNSPECIFIED, WITHOUT BLEEDING 05/28/2018 LORIE YODER MD Ot K44.9 DIAPHRAGMATIC HERNIA WITHOUT OBSTRUCTION 05/28/2018 LORIE YODER MD, Ot K57.90 DVRTCLOS OF INTEST, PART UNSP, W/O PERF 05/28/2018 LORIE YODER MD, Ot K92.2 GASTROINTESTINAL HEMORRHAGE, UNSPECIFIED 05/28/2018 LORIE YODER MD, Ot M19.91 PRIMARY OSTEOARTHRITIS, UNSPECIFIED SITE 05/28/2018 LORIE YODER MD, Ot 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 05/28/2018 LORIE YODER MD Ot R71.8 OTHER ABNORMALITY OF RED BLOOD CELLS 05/28/2018 LORIE YODER MD Ot Z23 ENCOUNTER FOR IMMUNIZATION 05/28/2018 LORIE YODER MD Ot Z68.41 BODY MASS INDEX (BMI) 40.0-44.9, ADULT 05/28/2018 LORIE YODER MD Ot Z79.01 SENIOR ANALYST MARKET INTELLIGENCE (CURRENT) USE OF ANTICOAGULANT 05/28/2018 LORIE YODER MD, Ot Z79.84 CORRECTION (CURRENT) USE OF ORAL HYPOGLYC 05/28/2018 LORIE YODER MD Ot 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), AND CEREB INFRC W 05/28/2018 LORIE YODER MD, Ot Z87.11 PERSONAL HISTORY OF PEPTIC ULCER DISEASE 05/28/2018 LORIE YODER MD Ot Z87.891 PERSONAL HISTORY OF NICOTINE DEPENDENCE 05/28/2018 LORIE YODER MD Ot Z95.5 PRESENCE OF CORONARY ANGIOPLASTY IMPLANT 05/29/2018 ROSALIE POWELL FACC, ALI FACP CCDS Ot E78.4 OTHER HYPERLIPIDEMIA 05/29/2018 ROSALIE POWELL FACC, ALI FACP CCDS Ot 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 05/29/2018 ROSALIE POWELL FACC, ALI FACP CCDS Ot I10 ESSENTIAL (PRIMARY) HYPERTENSION 05/29/2018 ROSALIE POWELL FACC, ALI FACP CCDS Ot I25.10 ATHSCL HEART DISEASE OF [place] CORONARY 05/29/2018 ROSALIE KNIGHT, SINDY FACP CCDS Ot I48.2 CHRONIC ATRIAL FIBRILLATION 05/29/2018 ROSALIE POWELL FACC, SINDY FACP CCDS Ot I65.23 OCCLUSION AND STENOSIS OF BILATERAL [place] 05/29/2018 ROSALIE POWELL FACC, SINDY FACP CCDS Ot R06.09 OTHER FORMS OF DYSPNEA 05/31/2018 HUMAIRA, BOBAN N Ot K92.2 GASTROINTESTINAL HEMORRHAGE, UNSPECIFIED 06/01/2018 HUMAIRA, BOBAN N Ot K92.2 GASTROINTESTINAL HEMORRHAGE, UNSPECIFIED 07/30/2018 HUMAIRA, BOBAN N Ot D64.9 ANEMIA, UNSPECIFIED 07/31/2018 HUMAIRA, BOBAN N Ot D64.9 ANEMIA, UNSPECIFIED 08/30/2018 HUMAIRA, BOBAN N Ot D64.9 ANEMIA, UNSPECIFIED 08/31/2018 HUMAIRA, BOBAN N Ot D64.9 ANEMIA, UNSPECIFIED 10/05/2018 HUMAIRA, BOBAN N Ot D64.9 ANEMIA, UNSPECIFIED 10/23/2018 HUMAIRA, BOBAN N Ot D64.9 ANEMIA, UNSPECIFIED 11/04/2018 BAIMA, JACOB L CITY CARRIER Ot 272.4 HYPERLIPIDEMIA NEC/NOS 11/04/2018 BAIMA, JACOB L [employer]RI[employer] Ot 401.9 HYPERTENSION NOS 11/04/2018 BAIMA, JACOB L [employer] CARRI[employer] Ot 427.31 ATRIAL FIBRILLATION 11/04/2018 BAIMA, JACOB L [employer]RI[employer] Ot 786.09 RESPIRATORY ABNORM NEC 11/04/2018 BAIMA, JACOB L [employer] CARRIER Ot V58.61 ANTICOAGULANTS,LT,CURRENT USE 11/04/2018 BAIMA, JACOB L [employer] CARRIER Ot 272.4 HYPERLIPIDEMIA NEC/NOS 11/04/2018 BAIMA, JACOB L [employer] CARRIER Ot 401.9 HYPERTENSION NOS 11/04/2018 BAIMA, JACOB L [employer] CARRIER Ot 427.31 ATRIAL FIBRILLATION 11/04/2018 BAIMA, JACOB L [employer] CARRIER Ot 784.0 HEADACHE 11/04/2018 BAIMA, JACOB L [employer] CARRIER Ot 786.09 RESPIRATORY ABNORM NEC 11/04/2018 BAIMA, JACOB L [employer] CARRIER Ot 786.59 CHEST PAIN NEC 11/04/2018 ELIZABETH MALDONADO DO Ot V45.82 PERCUTANEOUS TRANSLUM CORON ANGIOPLASTY 11/04/2018 ELIZABETH MALDONADO DO Ot V57.89 REHABILITATION PROC NEC 11/04/2018 ROSALIE KNIGHTC, ALI FACP CCDS Ot E78.5 HYPERLIPIDEMIA, UNSPECIFIED 11/04/2018 ROSALIE POWELL FACRolf, ALI FACP CCDS Ot I10 ESSENTIAL (PRIMARY) HYPERTENSION 11/04/2018 ROSALIE POWELL FACC, ALI FACP CCDS Ot I25.10 ATHSCL HEART DISEASE OF [place] CORONARY 11/04/2018 ROSALIE POWELL FACC, ALI FACP CCDS Ot I48.91 UNSPECIFIED ATRIAL FIBRILLATION 11/04/2018 ROSALIE POWELL FACC, ALI FACP CCDS Ot R06.09 OTHER FORMS OF DYSPNEA 11/04/2018 ROSALIE POWELL FACC, ALI FACP CCDS Ot E78.5 HYPERLIPIDEMIA, UNSPECIFIED 11/04/2018 ROSALIE POWELL FACC, ALI FACP CCDS Ot I10 ESSENTIAL (PRIMARY) HYPERTENSION 11/04/2018 ROSALIE KNIGHTC, ALI FACP CCDS Ot I25.10 ATHSCL HEART DISEASE OF [place] CORONARY 11/04/2018 ROSALIE POWELL FACC, ALI FACP CCDS Ot I48.91 UNSPECIFIED ATRIAL FIBRILLATION 11/04/2018 ROSALIE POWELL FACC, ALI FACP CCDS Ot R06.09 OTHER FORMS OF DYSPNEA 11/04/2018 ELIZABETH MALDONADO DO Ot R09.02 HYPOXEMIA 11/04/2018 RAHEEL KEITA MD Ot H91.90 UNSPECIFIED HEARING LOSS, UNSPECIFIED EA 11/04/2018 ROSALIE POWELL FACC, ALI FACP CCDS Ot E78.4 OTHER HYPERLIPIDEMIA 11/04/2018 ROSALIE POWELL FACC, ALI FACP CCDS Ot 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 11/04/2018 ROSALIE KNIGHT, ALI FACP CCDS Ot I10 ESSENTIAL (PRIMARY) HYPERTENSION 11/04/2018 ROSALIE KNIGHT, ALI FACP CCDS Ot I25.10 ATHSCL HEART DISEASE OF [place] CORONARY 11/04/2018 ROSALIE POWELL FACC, ALI FACP CCDS Ot I48.2 CHRONIC ATRIAL FIBRILLATION 11/04/2018 ROSALIE KNIGHTC, ALI FACP CCDS Ot I65.23 OCCLUSION AND STENOSIS OF BILATERAL [place] 11/04/2018 ROSALIE POWELL FACC, ALI FACP CCDS Ot R06.09 OTHER FORMS OF DYSPNEA 11/04/2018 HUMAIRA, BOBAN N Ot D64.9 ANEMIA, UNSPECIFIED 11/27/2018 LUCIANA GERARDO N Ot D64.9 ANEMIA, UNSPECIFIED 12/30/2018 HUMAIRALUCIANA OCASIO N Ot D64.9 ANEMIA, UNSPECIFIED 12/31/2018 HUMAIRALUCIANA OCASIO N Ot D64.9 ANEMIA, UNSPECIFIED 01/08/2019 HUMAIRALUCIANA OCASIO N Ot D64.9 ANEMIA, UNSPECIFIED 01/08/2019 LORIE YODER MD Ot E11.9 TYPE 2 DIABETES MELLITUS WITHOUT COMPLIC 01/08/2019 LORIE YODER MD, Ot E66.9 OBESITY, UNSPECIFIED 01/08/2019 LORIE YODER MD, Ot E78.5 HYPERLIPIDEMIA, UNSPECIFIED 01/08/2019 LORIE YODER MD, Ot 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 01/08/2019 LORIE YODER MD, Ot I11.0 HYPERTENSIVE HEART DISEASE WITH HEART FA 01/08/2019 LORIE YODER MD, Ot I25.10 ATHSCL HEART DISEASE OF [place] CORONARY 01/08/2019 LORIE YODER MD, Ot I25.5 ISCHEMIC CARDIOMYOPATHY 01/08/2019 LORIE YODER MD, Ot I48.91 UNSPECIFIED ATRIAL FIBRILLATION 01/08/2019 LORIE YODER MD, Ot 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 01/08/2019 LORIE YODER MD, Ot I65.23 OCCLUSION AND STENOSIS OF BILATERAL [place] 01/08/2019 LORIE YODER MD, Ot M19.91 PRIMARY OSTEOARTHRITIS, UNSPECIFIED SITE 01/08/2019 LORIE YODER MD, Ot Z68.37 BODY MASS INDEX (BMI) 37.0-37.9, ADULT 01/08/2019 LORIE YODER MD, Ot Z79.01 CORRECTION (CURRENT) USE OF ANTICOAGULANT 01/08/2019 LORIE YODER MD, Ot Z79.84 CORRECTION (CURRENT) USE OF ORAL HYPOGLYC 01/08/2019 LORIE YODER MD, Ot Z87.11 PERSONAL HISTORY OF PEPTIC ULCER DISEASE 01/08/2019 LORIE YODER MD, Ot Z87.891 PERSONAL HISTORY OF NICOTINE DEPENDENCE 01/08/2019 LORIE YODER MD, Ot Z95.5 PRESENCE OF CORONARY ANGIOPLASTY IMPLANT 01/10/2019 ODGERS MD, LORIE K Ot E11.9 TYPE 2 DIABETES MELLITUS WITHOUT COMPLIC 01/10/2019 LORIE YODER MD, Ot E66.9 OBESITY, UNSPECIFIED 01/10/2019 LORIE YODER MD, Ot E78.5 HYPERLIPIDEMIA, UNSPECIFIED 01/10/2019 LORIE YODER MD Ot 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 01/10/2019 LORIE YODER MD Ot I11.0 HYPERTENSIVE HEART DISEASE WITH HEART FA 01/10/2019 LORIE YODER MD, Ot I25.10 ATHSCL HEART DISEASE OF [place] CORONARY 01/10/2019 LORIE YODER MD, Ot I25.5 ISCHEMIC CARDIOMYOPATHY 01/10/2019 LORIE YODER MD, Ot I48.91 UNSPECIFIED ATRIAL FIBRILLATION 01/10/2019 LORIE YODER MD, Ot 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 01/10/2019 LORIE YODER MD, Ot I65.23 OCCLUSION AND STENOSIS OF BILATERAL [place] 01/10/2019 LORIE YODER MD Ot M19.91 PRIMARY OSTEOARTHRITIS, UNSPECIFIED SITE 01/10/2019 LORIE YODER MD Ot Z68.37 BODY MASS INDEX (BMI) 37.0-37.9, ADULT 01/10/2019 LORIE YODER MD Ot Z79.01 SENIOR ANALYST MARKET INTELLIGENCE (CURRENT) USE OF ANTICOAGULANT 01/10/2019 LORIE YODER MD, Ot Z79.84 SENIOR ANALYST MARKET INTELLIGENCE (CURRENT) USE OF ORAL HYPOGLYC 01/10/2019 LORIE YODER MD Ot Z87.11 PERSONAL HISTORY OF PEPTIC ULCER DISEASE 01/10/2019 LORIE YODER MD, Ot Z87.891 PERSONAL HISTORY OF NICOTINE DEPENDENCE 01/10/2019 LORIE YODER MD Ot Z95.5 PRESENCE OF CORONARY ANGIOPLASTY IMPLANT 01/10/2019 LORIE YODER MD Ot D64.9 ANEMIA, UNSPECIFIED 01/10/2019 LORIE YODER MD Ot E11.9 TYPE 2 DIABETES MELLITUS WITHOUT COMPLIC 01/10/2019 LORIE YODER MD Ot E66.9 OBESITY, UNSPECIFIED 01/10/2019 LORIE YODER MD, Ot E78.5 HYPERLIPIDEMIA, UNSPECIFIED 01/10/2019 LORIE YODER MD Ot 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 01/10/2019 LORIE YODER MD Ot I11.0 HYPERTENSIVE HEART DISEASE WITH HEART FA 01/10/2019 LORIE YODER MD, Ot I25.10 ATHSCL HEART DISEASE OF [place] CORONARY 01/10/2019 LORIE YODER MD, Ot I25.5 ISCHEMIC CARDIOMYOPATHY 01/10/2019 LORIE YODER MD, Ot I48.2 CHRONIC ATRIAL FIBRILLATION 01/10/2019 LORIE YODER MD, Ot I48.91 UNSPECIFIED ATRIAL FIBRILLATION 01/10/2019 LORIE YODER MD, Ot 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 01/10/2019 LORIE YODER MD, Ot I50.33 ACUTE ON CHRONIC DIASTOLIC (CONGESTIVE) 01/10/2019 LORIE YODER MD, Ot I65.23 OCCLUSION AND STENOSIS OF BILATERAL [place] 01/10/2019 LORIE YODER MD, Ot M19.91 PRIMARY OSTEOARTHRITIS, UNSPECIFIED SITE 01/10/2019 LORIE YODER MD, Ot Z68.37 BODY MASS INDEX (BMI) 37.0-37.9, ADULT 01/10/2019 LORIE YODER MD, Ot Z79.01 SENIOR ANALYST MARKET INTELLIGENCE (CURRENT) USE OF ANTICOAGULANT 01/10/2019 LORIE YODER MD, Ot Z79.84 CORRECTION (CURRENT) USE OF ORAL HYPOGLYC 01/10/2019 LORIE YODER MD, Ot 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), AND CEREB INFRC W 01/10/2019 LORIE YODER MD, Ot Z87.11 PERSONAL HISTORY OF PEPTIC ULCER DISEASE 01/10/2019 LORIE YODER MD, Ot Z87.891 PERSONAL HISTORY OF NICOTINE DEPENDENCE 01/10/2019 LORIE YODER MD, Ot Z95.5 PRESENCE OF CORONARY ANGIOPLASTY IMPLANT Procedures Code Description Performed By Performed On [id number] DESTRUCTION OF STOMACH, ENDO 05/28/2018 [id number] EXCISION OF STOMACH, PYLORUS, ENDO, DIAG 05/28/2018 Results Test Result Range Complete blood count (CBC) with automated white blood cell (WBC) differential - 02/10/18 18:37 Blood leukocytes automated count (number/volume) 11.6 10*3/uL 4.3-11.0 Blood erythrocytes automated count (number/volume) 2.22 10*6/uL 4.35-5.85 Venous blood hemoglobin measurement (mass/volume) 5.7 g/dL 11.5-16.0 Blood hematocrit (volume fraction) 19 % 35-52 Automated erythrocyte mean corpuscular volume 85 [foz_us] 80-99 Automated erythrocyte mean corpuscular hemoglobin (mass per erythrocyte) 26 pg 25-34 Automated erythrocyte mean corpuscular hemoglobin concentration measurement (mass/volume) 30 g/dL 32-36 Automated erythrocyte distribution width ratio 21.3 % 10.0- 14.5 Automated blood platelet count (count/volume) 397 10*3/uL 130-400 Automated blood platelet mean volume measurement 11.2 [foz_us] 7.4-10.4 Automated blood neutrophils/100 leukocytes 86 % 42-75 Automated blood lymphocytes/100 leukocytes 10 % 12-44 Blood monocytes/100 leukocytes 3 % 0-12 Automated blood eosinophils/100 leukocytes 0 % 0-10 Automated blood basophils/100 leukocytes 0 % 0-10 Blood neutrophils automated count (number/volume) 10.0 10*3 1.8-7.8 Blood lymphocytes automated count (number/volume) 1.2 10*3 1.0-4.0 Blood monocytes automated count (number/volume) 0.4 10*3 0.0- 1.0 Automated eosinophil count 0.0 10*3/uL 0.0-0.3 Automated blood basophil count (count/volume) 0.0 10*3/uL 0.0-0.1 Comprehensive metabolic panel - 02/10/18 18:37 Serum or plasma sodium measurement (moles/volume) 141 mmol/L 135-145 Serum or plasma potassium measurement (moles/volume) 5.1 mmol/L 3.6-5.0 Serum or plasma chloride measurement (moles/volume) 108 mmol/L 98-107 Carbon dioxide 20 mmol/L 21-32 Serum or plasma anion gap determination (moles/volume) 13 mmol/L 5-14 Serum or plasma urea nitrogen measurement (mass/volume) 64 mg/dL 7-18 Serum or plasma creatinine measurement (mass/volume) 1.21 mg/dL 0.60-1.30 Serum or plasma urea nitrogen/creatinine mass ratio 53 NRG Serum or plasma creatinine measurement with calculation of estimated glomerular filtration rate 43 NRG Serum or plasma glucose measurement (mass/volume) 142 mg/dL 70-105 Serum or plasma calcium measurement (mass/volume) 9.7 mg/dL 8.5-10.1 Serum or plasma total bilirubin measurement (mass/volume) 0.3 mg/dL 0.1-1.0 Serum or plasma alkaline phosphatase measurement (enzymatic activity/volume) 43 U/L 40-136 Serum or plasma aspartate aminotransferase measurement (enzymatic activity/volume) 11 U/L 5-34 Serum or plasma alanine aminotransferase measurement (enzymatic activity/volume) 12 U/L 0-55 Serum or plasma protein measurement (mass/volume) 6.4 g/dL 6.4-8.2 Serum or plasma albumin measurement (mass/volume) 3.7 g/dL 3.2-4.5 Magnesium - 02/10/18 18:37 Magnesium 2.0 mg/dL 1.8-2.4 Serum or plasma troponin i.cardiac measurement (mass/volume) - 02/10/18 18:37 Serum or plasma troponin i.cardiac measurement (mass/volume) < ng/mL <0.30 Blood manual differential performed detection - 02/10/18 18:37 Blood monocytes/100 leukocytes 2 % NRG Manual blood segmented neutrophils/100 leukocytes 80 % NRG Blood band neutrophils/100 leukocytes 4 % NRG Manual blood lymphocytes/100 leukocytes 10 % NRG Manual eosinophils/100 leukocytes in nose 0 % NRG Manual blood basophils/100 leukocytes 2 % NRG Blood anisocytosis detection by light microscopy MODERATE NRG Manual blood metamyelocytes/100 leukocytes 2 % NRG Blood microcytes detection by light microscopy SLIGHT NRG Serum or plasma lithium measurement (moles/volume) - 02/10/18 18:37 BNP level 351.9 pg/mL <100.0 RED CELLS LEUKO REDUCED AS1 - 02/10/18 19:23 RED CELLS LEUKO REDUCED AS1 TRANSFUSED 02/10/182042 [facility] Blood type T Indirect antibody screen panel - 02/10/18 19:23 ABO+Rh group AP NRG Transfusion band number [id number] Blood group antibody screen NEGATIVE NRG Complete urinalysis with reflex to culture - 02/10/18 19:55 Urine color determination YELLOW NRG Urine clarity determination CLEAR NRG Urine pH measurement by test strip 5 5-9 Specific gravity of urine by test strip 1.010 1.016-1.022 Urine protein assay by test strip, semi-quantitative NEGATIVE NEGATIVE Urine glucose detection by automated test strip NEGATIVE NEGATIVE Erythrocytes detection in urine sediment by light microscopy NEGATIVE NEGATIVE Urine ketones detection by automated test strip NEGATIVE NEGATIVE Urine nitrite detection by test strip NEGATIVE NEGATIVE Urine total bilirubin detection by test strip NEGATIVE NEGATIVE Urine urobilinogen measurement by automated test strip (mass/volume) NORMAL NORMAL Urine leukocyte esterase detection by dipstick 1+ NEGATIVE Automated urine sediment erythrocyte count by microscopy (number/high power field) NONE NRG Automated urine sediment leukocyte count by microscopy (number/high power field) RARE NRG Bacteria detection in urine sediment by light microscopy TRACE NRG Squamous epithelial cells detection in urine sediment by light microscopy 0-2 NRG Crystals detection in urine sediment by light microscopy NONE NRG Casts detection in urine sediment by light microscopy NONE NRG Mucus detection in urine sediment by light microscopy NEGATIVE NRG Complete urinalysis with reflex to culture NO NRG Complete blood count (CBC) with automated white blood cell (WBC) differential - 02/11/18 05:22 Blood leukocytes automated count (number/volume) 10.7 10*3/uL 4.3-11.0 Blood erythrocytes automated count (number/volume) 3.24 10*6/uL 4.35-5.85 Venous blood hemoglobin measurement (mass/volume) 8.7 g/dL 11.5-16.0 Blood hematocrit (volume fraction) 27 % 35-52 Automated erythrocyte mean corpuscular volume 83 [foz_us] 80-99 Automated erythrocyte mean corpuscular hemoglobin (mass per erythrocyte) 27 pg 25-34 Automated erythrocyte mean corpuscular hemoglobin concentration measurement (mass/volume) 32 g/dL 32-36 Automated erythrocyte distribution width ratio 17.9 % 10.0- 14.5 Automated blood platelet count (count/volume) 342 10*3/uL 130-400 Automated blood platelet mean volume measurement 10.8 [foz_us] 7.4-10.4 Automated blood neutrophils/100 leukocytes 77 % 42-75 Automated blood lymphocytes/100 leukocytes 14 % 12-44 Blood monocytes/100 leukocytes 7 % 0-12 Automated blood eosinophils/100 leukocytes 1 % 0-10 Automated blood basophils/100 leukocytes 1 % 0-10 Blood neutrophils automated count (number/volume) 8.3 10*3 1.8-7.8 Blood lymphocytes automated count (number/volume) 1.5 10*3 1.0-4.0 Blood monocytes automated count (number/volume) 0.8 10*3 0.0- 1.0 Automated eosinophil count 0.1 10*3/uL 0.0-0.3 Automated blood basophil count (count/volume) 0.1 10*3/uL 0.0-0.1 Whole blood basic metabolic panel - 02/11/18 05:22 Serum or plasma sodium measurement (moles/volume) 141 mmol/L 135-145 Serum or plasma potassium measurement (moles/volume) 4.3 mmol/L 3.6-5.0 Serum or plasma chloride measurement (moles/volume) 109 mmol/L 98-107 Carbon dioxide 23 mmol/L 21-32 Serum or plasma anion gap determination (moles/volume) 9 mmol/L 5-14 Serum or plasma urea nitrogen measurement (mass/volume) 59 mg/dL 7-18 Serum or plasma creatinine measurement (mass/volume) 1.07 mg/dL 0.60-1.30 Serum or plasma urea nitrogen/creatinine mass ratio 55 NRG Serum or plasma creatinine measurement with calculation of estimated glomerular filtration rate 50 NRG Serum or plasma glucose measurement (mass/volume) 63 mg/dL 70-105 Serum or plasma calcium measurement (mass/volume) 9.0 mg/dL 8.5-10.1 Capillary blood glucose measurement by glucometer (mass/volume) - 02/11/18 11:03 Capillary blood glucose measurement by glucometer (mass/volume) 250 mg/dL 70-110 Capillary blood glucose measurement by glucometer (mass/volume) - 02/11/18 16:12 Capillary blood glucose measurement by glucometer (mass/volume) 209 mg/dL 70-110 Capillary blood glucose measurement by glucometer (mass/volume) - 03/09/18 10:56 Capillary blood glucose measurement by glucometer (mass/volume) 111 mg/dL 70-110 Complete blood count (CBC) with automated white blood cell (WBC) differential - 05/25/18 17:50 Blood leukocytes automated count (number/volume) 8.1 10*3/uL 4.3-11.0 Blood erythrocytes automated count (number/volume) 3.52 10*6/uL 4.35-5.85 Venous blood hemoglobin measurement (mass/volume) 7.8 g/dL 11.5-16.0 Blood hematocrit (volume fraction) 27 % 35-52 Automated erythrocyte mean corpuscular volume 78 [foz_us] 80-99 Automated erythrocyte mean corpuscular hemoglobin (mass per erythrocyte) 22 pg 25-34 Automated erythrocyte mean corpuscular hemoglobin concentration measurement (mass/volume) 29 g/dL 32-36 Automated erythrocyte distribution width ratio 20.8 % 10.0- 14.5 Automated blood platelet count (count/volume) 367 10*3/uL 130-400 Automated blood platelet mean volume measurement 10.7 [foz_us] 7.4-10.4 Automated blood neutrophils/100 leukocytes 86 % 42-75 Automated blood lymphocytes/100 leukocytes 8 % 12-44 Blood monocytes/100 leukocytes 5 % 0-12 Automated blood eosinophils/100 leukocytes 1 % 0-10 Automated blood basophils/100 leukocytes 0 % 0-10 Blood neutrophils automated count (number/volume) 7.0 10*3 1.8-7.8 Blood lymphocytes automated count (number/volume) 0.7 10*3 1.0-4.0 Blood monocytes automated count (number/volume) 0.4 10*3 0.0- 1.0 Automated eosinophil count 0.1 10*3/uL 0.0-0.3 Automated blood basophil count (count/volume) 0.0 10*3/uL 0.0-0.1 Comprehensive metabolic panel - 05/25/18 17:50 Serum or plasma sodium measurement (moles/volume) 141 mmol/L 135-145 Serum or plasma potassium measurement (moles/volume) 4.0 mmol/L 3.6-5.0 Serum or plasma chloride measurement (moles/volume) 103 mmol/L 98-107 Carbon dioxide 25 mmol/L 21-32 Serum or plasma anion gap determination (moles/volume) 13 mmol/L 5-14 Serum or plasma urea nitrogen measurement (mass/volume) 19 mg/dL 7-18 Serum or plasma creatinine measurement (mass/volume) 1.15 mg/dL 0.60-1.30 Serum or plasma urea nitrogen/creatinine mass ratio 17 NRG Serum or plasma creatinine measurement with calculation of estimated glomerular filtration rate 46 NRG Serum or plasma glucose measurement (mass/volume) 119 mg/dL 70-105 Serum or plasma calcium measurement (mass/volume) 9.7 mg/dL 8.5-10.1 Serum or plasma total bilirubin measurement (mass/volume) 0.8 mg/dL 0.1-1.0 Serum or plasma alkaline phosphatase measurement (enzymatic activity/volume) 56 U/L 40-136 Serum or plasma aspartate aminotransferase measurement (enzymatic activity/volume) 8 U/L 5-34 Serum or plasma alanine aminotransferase measurement (enzymatic activity/volume) 9 U/L 0-55 Serum or plasma protein measurement (mass/volume) 7.4 g/dL 6.4-8.2 Serum or plasma albumin measurement (mass/volume) 3.9 g/dL 3.2-4.5 CALCIUM CORRECTED 9.8 mg/dL 8.5-10.1 Serum or plasma troponin i.cardiac measurement (mass/volume) - 05/25/18 17:50 Serum or plasma troponin i.cardiac measurement (mass/volume) < ng/mL <0.30 ANEMIA ANALYZER - 05/25/18 17:50 Blood leukocytes automated count (number/volume) 8.8 10*3/uL 4.3-11.0 Blood erythrocytes automated count (number/volume) 3.57 10*6/uL 4.35-5.85 Venous blood hemoglobin measurement (mass/volume) 8.0 g/dL 11.5-16.0 Blood hematocrit (volume fraction) 28 % 35-52 Automated erythrocyte mean corpuscular volume 78 [foz_us] 80-99 Automated erythrocyte mean corpuscular hemoglobin (mass per erythrocyte) 22 pg 25-34 Automated erythrocyte mean corpuscular hemoglobin concentration measurement (mass/volume) 29 g/dL 32-36 Automated erythrocyte distribution width ratio 20.6 % 10.0- 14.5 Automated blood platelet count (count/volume) 391 10*3/uL 130-400 Automated blood platelet mean volume measurement 11.2 [foz_us] 7.4-10.4 Automated blood neutrophils/100 leukocytes 84 % 42-75 Automated blood lymphocytes/100 leukocytes 9 % 12-44 Blood monocytes/100 leukocytes 2 % NRG Automated blood eosinophils/100 leukocytes 2 % 0-10 Automated blood basophils/100 leukocytes 0 % 0-10 Blood neutrophils automated count (number/volume) 7.4 10*3 1.8-7.8 Blood lymphocytes automated count (number/volume) 0.8 10*3 1.0-4.0 Blood monocytes automated count (number/volume) 0.5 10*3 0.0- 1.0 Automated eosinophil count 0.1 10*3/uL 0.0-0.3 Automated blood basophil count (count/volume) 0.0 10*3/uL 0.0-0.1 Manual blood segmented neutrophils/100 leukocytes 82 % NRG Blood band neutrophils/100 leukocytes 4 % NRG Manual blood lymphocytes/100 leukocytes 12 % NRG Manual eosinophils/100 leukocytes in nose 0 % NRG Manual blood basophils/100 leukocytes 0 % NRG Blood anisocytosis detection by light microscopy MODERATE NRG Blood hypochromia detection by light microscopy SLIGHT NRG Blood microcytes detection by light microscopy SLIGHT NRG Blood reticulocytes count (number/volume) 67 10*9/L 24-90 Blood reticulocytes/100 erythrocytes 1.87 % 0.50-2.40 Whole blood basic metabolic panel - 05/26/18 05:28 Serum or plasma sodium measurement (moles/volume) 140 mmol/L 135-145 Serum or plasma potassium measurement (moles/volume) 3.6 mmol/L 3.6-5.0 Serum or plasma chloride measurement (moles/volume) 101 mmol/L 98-107 Carbon dioxide 24 mmol/L 21-32 Serum or plasma anion gap determination (moles/volume) 15 mmol/L 5-14 Serum or plasma urea nitrogen measurement (mass/volume) 21 mg/dL 7-18 Serum or plasma creatinine measurement (mass/volume) 1.04 mg/dL 0.60-1.30 Serum or plasma urea nitrogen/creatinine mass ratio 20 NRG Serum or plasma creatinine measurement with calculation of estimated glomerular filtration rate 52 NRG Serum or plasma glucose measurement (mass/volume) 58 mg/dL 70-105 Serum or plasma calcium measurement (mass/volume) 9.7 mg/dL 8.5-10.1 Serum or plasma lithium measurement (moles/volume) - 05/26/18 05:28 BNP level 381.7 pg/mL <100.0 Capillary blood glucose measurement by glucometer (mass/volume) - 05/26/18 06:24 Capillary blood glucose measurement by glucometer (mass/volume) 85 mg/dL 70-110 RED CELLS LEUKO REDUCED AS1 - 05/26/18 10:28 RED CELLS LEUKO REDUCED AS1 TRANSFUSED 05/26/18 1255 NRG Blood type T Indirect antibody screen panel - 05/26/18 10:28 ABO+Rh group AP NRG Transfusion band number [id number] NRG Blood group antibody screen NEGATIVE NRG Capillary blood glucose measurement by glucometer (mass/volume) - 05/26/18 11:21 Capillary blood glucose measurement by glucometer (mass/volume) 214 mg/dL 70-110 Blood manual differential performed detection - 05/26/18 11:58 Blood monocytes/100 leukocytes 4 % NRG Manual blood segmented neutrophils/100 leukocytes 89 % NRG Manual blood lymphocytes/100 leukocytes 6 % NRG Blood lymphocytes variant/100 leukocytes 1 % NRG Blood polychromasia detection by light microscopy SLIGHT NRG Blood erythrocyte morphology finding identification SEE NOTE NRG Blood ovalocytes detection by light microscopy SLIGHT NRG Blood poikilocytosis detection by light microscopy MODERATE NRG Blood hypochromia detection by light microscopy MODERATE NRG Blood microcytes detection by light microscopy MODERATE NRG Blood stomatocytes detection by light microscopy SLIGHT NRG Automated reticulocyte percentage - 05/26/18 11:58 Blood erythrocytes automated count (number/volume) 3.53 10*6/uL 4.35-5.85 Blood reticulocytes count (number/volume) 55 10*9/L 24-90 Blood reticulocytes/100 erythrocytes 1.55 % 0.50-2.40 Serum iron and total iron binding capacity panel - 05/26/18 11:58 Serum or plasma iron measurement (mass/volume) 30 % 35-180 Total iron binding capacity and transferrin saturation measurement 8 % 15-50 Iron binding capacity [mass/volume] in serum or plasma 371 % 280-380 UIBC (unsaturated iron binding capacity) 341 % 55-450 Serum or plasma ferritin measurement (mass/volume) 15.4 % 20.0-177.0 Capillary blood glucose measurement by glucometer (mass/volume) - 05/26/18 17:20 Capillary blood glucose measurement by glucometer (mass/volume) 137 mg/dL 70-110 Capillary blood glucose measurement by glucometer (mass/volume) - 05/27/18 05:10 Capillary blood glucose measurement by glucometer (mass/volume) 44 mg/dL 70-110 Capillary blood glucose measurement by glucometer (mass/volume) - 05/27/18 05:26 Capillary blood glucose measurement by glucometer (mass/volume) 65 mg/dL 70-110 Capillary blood glucose measurement by glucometer (mass/volume) - 05/27/18 05:43 Capillary blood glucose measurement by glucometer (mass/volume) 111 mg/dL 70-110 Comprehensive metabolic panel - 05/27/18 07:25 Serum or plasma sodium measurement (moles/volume) 136 mmol/L 135-145 Serum or plasma potassium measurement (moles/volume) 3.9 mmol/L 3.6-5.0 Serum or plasma chloride measurement (moles/volume) 100 mmol/L 98-107 Carbon dioxide 24 mmol/L 21-32 Serum or plasma anion gap determination (moles/volume) 12 mmol/L 5-14 Serum or plasma urea nitrogen measurement (mass/volume) 19 mg/dL 7-18 Serum or plasma creatinine measurement (mass/volume) 1.11 mg/dL 0.60-1.30 Serum or plasma urea nitrogen/creatinine mass ratio 17 NRG Serum or plasma creatinine measurement with calculation of estimated glomerular filtration rate 48 NRG Serum or plasma glucose measurement (mass/volume) 204 mg/dL 70-105 Serum or plasma calcium measurement (mass/volume) 9.1 mg/dL 8.5-10.1 Serum or plasma total bilirubin measurement (mass/volume) 1.1 mg/dL 0.1-1.0 Serum or plasma alkaline phosphatase measurement (enzymatic activity/volume) 51 U/L 40-136 Serum or plasma aspartate aminotransferase measurement (enzymatic activity/volume) 11 U/L 5-34 Serum or plasma alanine aminotransferase measurement (enzymatic activity/volume) 8 U/L 0-55 Serum or plasma protein measurement (mass/volume) 6.7 g/dL 6.4-8.2 Serum or plasma albumin measurement (mass/volume) 3.5 g/dL 3.2-4.5 CALCIUM CORRECTED 9.5 mg/dL 8.5-10.1 Magnesium - 05/27/18 07:25 Magnesium 1.8 mg/dL 1.8-2.4 Automated blood complete blood count (hemogram) panel - 05/27/18 07:25 Blood leukocytes automated count (number/volume) 7.9 10*3/uL 4.3-11.0 Blood erythrocytes automated count (number/volume) 4.03 10*6/uL 4.35-5.85 Venous blood hemoglobin measurement (mass/volume) 9.7 g/dL 11.5-16.0 Blood hematocrit (volume fraction) 31 % 35-52 Automated erythrocyte mean corpuscular volume 77 [foz_us] 80-99 Automated erythrocyte mean corpuscular hemoglobin (mass per erythrocyte) 24 pg 25-34 Automated erythrocyte mean corpuscular hemoglobin concentration measurement (mass/volume) 31 g/dL 32-36 Automated erythrocyte distribution width ratio 19.1 % 10.0- 14.5 Automated blood platelet count (count/volume) 321 10*3/uL 130-400 Automated blood platelet mean volume measurement 10.5 [foz_us] 7.4-10.4 Capillary blood glucose measurement by glucometer (mass/volume) - 05/27/18 11:43 Capillary blood glucose measurement by glucometer (mass/volume) 45 mg/dL 70-110 Capillary blood glucose measurement by glucometer (mass/volume) - 05/27/18 12:47 Capillary blood glucose measurement by glucometer (mass/volume) 74 mg/dL 70-110 Methicillin resistant Staphylococcus aureus (MRSA) screening culture - 05/27/18 13:55 Methicillin resistant Staphylococcus aureus (MRSA) screening culture NEG NRG Capillary blood glucose measurement by glucometer (mass/volume) - 05/27/18 16:45 Capillary blood glucose measurement by glucometer (mass/volume) 85 mg/dL 70-110 Capillary blood glucose measurement by glucometer (mass/volume) - 05/27/18 20:32 Capillary blood glucose measurement by glucometer (mass/volume) 101 mg/dL 70-110 Complete blood count (CBC) with automated white blood cell (WBC) differential - 05/28/18 05:20 Blood leukocytes automated count (number/volume) 9.3 10*3/uL 4.3-11.0 Blood erythrocytes automated count (number/volume) 3.95 10*6/uL 4.35-5.85 Venous blood hemoglobin measurement (mass/volume) 9.4 g/dL 11.5-16.0 Blood hematocrit (volume fraction) 31 % 35-52 Automated erythrocyte mean corpuscular volume 80 [foz_us] 80-99 Automated erythrocyte mean corpuscular hemoglobin (mass per erythrocyte) 24 pg 25-34 Automated erythrocyte mean corpuscular hemoglobin concentration measurement (mass/volume) 30 g/dL 32-36 Automated erythrocyte distribution width ratio 20.1 % 10.0- 14.5 Automated blood platelet count (count/volume) 330 10*3/uL 130-400 Automated blood platelet mean volume measurement 10.8 [foz_us] 7.4-10.4 Automated blood neutrophils/100 leukocytes 77 % 42-75 Automated blood lymphocytes/100 leukocytes 12 % 12-44 Blood monocytes/100 leukocytes 8 % 0-12 Automated blood eosinophils/100 leukocytes 2 % 0-10 Automated blood basophils/100 leukocytes 0 % 0-10 Blood neutrophils automated count (number/volume) 7.2 10*3 1.8-7.8 Blood lymphocytes automated count (number/volume) 1.1 10*3 1.0-4.0 Blood monocytes automated count (number/volume) 0.8 10*3 0.0- 1.0 Automated eosinophil count 0.2 10*3/uL 0.0-0.3 Automated blood basophil count (count/volume) 0.0 10*3/uL 0.0-0.1 Comprehensive metabolic panel - 05/28/18 05:20 Serum or plasma sodium measurement (moles/volume) 139 mmol/L 135-145 Serum or plasma potassium measurement (moles/volume) 3.9 mmol/L 3.6-5.0 Serum or plasma chloride measurement (moles/volume) 103 mmol/L 98-107 Carbon dioxide 25 mmol/L 21-32 Serum or plasma anion gap determination (moles/volume) 11 mmol/L 5-14 Serum or plasma urea nitrogen measurement (mass/volume) 25 mg/dL 7-18 Serum or plasma creatinine measurement (mass/volume) 0.91 mg/dL 0.60-1.30 Serum or plasma urea nitrogen/creatinine mass ratio 27 NRG Serum or plasma creatinine measurement with calculation of estimated glomerular filtration rate 60 NRG Serum or plasma glucose measurement (mass/volume) 32 mg/dL 70-105 Serum or plasma calcium measurement (mass/volume) 9.4 mg/dL 8.5-10.1 Serum or plasma total bilirubin measurement (mass/volume) 0.6 mg/dL 0.1-1.0 Serum or plasma alkaline phosphatase measurement (enzymatic activity/volume) 49 U/L 40-136 Serum or plasma aspartate aminotransferase measurement (enzymatic activity/volume) 11 U/L 5-34 Serum or plasma alanine aminotransferase measurement (enzymatic activity/volume) 8 U/L 0-55 Serum or plasma protein measurement (mass/volume) 6.5 g/dL 6.4-8.2 Serum or plasma albumin measurement (mass/volume) 3.5 g/dL 3.2-4.5 CALCIUM CORRECTED 9.8 mg/dL 8.5-10.1 Capillary blood glucose measurement by glucometer (mass/volume) - 05/28/18 05:25 Capillary blood glucose measurement by glucometer (mass/volume) 37 mg/dL 70-110 Capillary blood glucose measurement by glucometer (mass/volume) - 05/28/18 05:49 Capillary blood glucose measurement by glucometer (mass/volume) 147 mg/dL 70-110 Capillary blood glucose measurement by glucometer (mass/volume) - 05/28/18 10:44 Capillary blood glucose measurement by glucometer (mass/volume) 56 mg/dL 70-110 Capillary blood glucose measurement by glucometer (mass/volume) - 05/28/18 12:01 Capillary blood glucose measurement by glucometer (mass/volume) 186 mg/dL 70-110 Complete blood count (CBC) with automated white blood cell (WBC) differential - 01/07/19 17:04 Blood leukocytes automated count (number/volume) 6.6 10*3/uL 4.3-11.0 Blood erythrocytes automated count (number/volume) 4.47 10*6/uL 4.35-5.85 Venous blood hemoglobin measurement (mass/volume) 11.9 g/dL 11.5-16.0 Blood hematocrit (volume fraction) 39 % 35-52 Automated erythrocyte mean corpuscular volume 88 [foz_us] 80-99 Automated erythrocyte mean corpuscular hemoglobin (mass per erythrocyte) 27 pg 25-34 Automated erythrocyte mean corpuscular hemoglobin concentration measurement (mass/volume) 30 g/dL 32-36 Automated erythrocyte distribution width ratio 19.0 % 10.0- 14.5 Automated blood platelet count (count/volume) 303 10*3/uL 130-400 Automated blood platelet mean volume measurement 10.6 [foz_us] 7.4-10.4 Automated blood neutrophils/100 leukocytes 84 % 42-75 Automated blood lymphocytes/100 leukocytes 9 % 12-44 Blood monocytes/100 leukocytes 6 % 0-12 Automated blood eosinophils/100 leukocytes 1 % 0-10 Automated blood basophils/100 leukocytes 0 % 0-10 Blood neutrophils automated count (number/volume) 5.6 10*3 1.8-7.8 Blood lymphocytes automated count (number/volume) 0.6 10*3 1.0-4.0 Blood monocytes automated count (number/volume) 0.4 10*3 0.0- 1.0 Automated eosinophil count 0.1 10*3/uL 0.0-0.3 Automated blood basophil count (count/volume) 0.0 10*3/uL 0.0-0.1 Comprehensive metabolic panel - 01/07/19 17:04 Serum or plasma sodium measurement (moles/volume) 140 mmol/L 135-145 Serum or plasma potassium measurement (moles/volume) 4.0 mmol/L 3.6-5.0 Serum or plasma chloride measurement (moles/volume) 104 mmol/L 98-107 Carbon dioxide 24 mmol/L 21-32 Serum or plasma anion gap determination (moles/volume) 12 mmol/L 5-14 Serum or plasma urea nitrogen measurement (mass/volume) 18 mg/dL 7-18 Serum or plasma creatinine measurement (mass/volume) 1.01 mg/dL 0.60-1.30 Serum or plasma urea nitrogen/creatinine mass ratio 18 NRG Serum or plasma creatinine measurement with calculation of estimated glomerular filtration rate 53 NRG Serum or plasma glucose measurement (mass/volume) 152 mg/dL 70-105 Serum or plasma calcium measurement (mass/volume) 9.8 mg/dL 8.5-10.1 Serum or plasma total bilirubin measurement (mass/volume) 0.9 mg/dL 0.1-1.0 Serum or plasma alkaline phosphatase measurement (enzymatic activity/volume) 54 U/L 40-136 Serum or plasma aspartate aminotransferase measurement (enzymatic activity/volume) 11 U/L 5-34 Serum or plasma alanine aminotransferase measurement (enzymatic activity/volume) 14 U/L 0-55 Serum or plasma protein measurement (mass/volume) 7.5 g/dL 6.4-8.2 Serum or plasma albumin measurement (mass/volume) 4.1 g/dL 3.2-4.5 CALCIUM CORRECTED 9.7 mg/dL 8.5-10.1 Serum or plasma troponin i.cardiac measurement (mass/volume) - 01/07/19 17:04 Serum or plasma troponin i.cardiac measurement (mass/volume) < ng/mL <0.028 Serum or plasma lithium measurement (moles/volume) - 01/07/19 17:04 BNP level 662.7 pg/mL <100.0 Capillary blood glucose measurement by glucometer (mass/volume) - 01/08/19 16:26 Capillary blood glucose measurement by glucometer (mass/volume) 138 mg/dL 70-110 Capillary blood glucose measurement by glucometer (mass/volume) - 01/08/19 21:03 Capillary blood glucose measurement by glucometer (mass/volume) 151 mg/dL 70-110 Capillary blood glucose measurement by glucometer (mass/volume) - 01/09/19 05:31 Capillary blood glucose measurement by glucometer (mass/volume) 137 mg/dL 70-110 Complete blood count (CBC) with automated white blood cell (WBC) differential - 01/09/19 05:38 Blood leukocytes automated count (number/volume) 6.7 10*3/uL 4.3-11.0 Blood erythrocytes automated count (number/volume) 4.20 10*6/uL 4.35-5.85 Venous blood hemoglobin measurement (mass/volume) 11.3 g/dL 11.5-16.0 Blood hematocrit (volume fraction) 37 % 35-52 Automated erythrocyte mean corpuscular volume 88 [foz_us] 80-99 Automated erythrocyte mean corpuscular hemoglobin (mass per erythrocyte) 27 pg 25-34 Automated erythrocyte mean corpuscular hemoglobin concentration measurement (mass/volume) 31 g/dL 32-36 Automated erythrocyte distribution width ratio 19.4 % 10.0- 14.5 Automated blood platelet count (count/volume) 266 10*3/uL 130-400 Automated blood platelet mean volume measurement 10.6 [foz_us] 7.4-10.4 Automated blood neutrophils/100 leukocytes 76 % 42-75 Automated blood lymphocytes/100 leukocytes 11 % 12-44 Blood monocytes/100 leukocytes 10 % 0-12 Automated blood eosinophils/100 leukocytes 2 % 0-10 Automated blood basophils/100 leukocytes 1 % 0-10 Blood neutrophils automated count (number/volume) 5.1 10*3 1.8-7.8 Blood lymphocytes automated count (number/volume) 0.7 10*3 1.0-4.0 Blood monocytes automated count (number/volume) 0.7 10*3 0.0- 1.0 Automated eosinophil count 0.2 10*3/uL 0.0-0.3 Automated blood basophil count (count/volume) 0.0 10*3/uL 0.0-0.1 Comprehensive metabolic panel - 01/09/19 05:38 Serum or plasma sodium measurement (moles/volume) 141 mmol/L 135-145 Serum or plasma potassium measurement (moles/volume) 3.4 mmol/L 3.6-5.0 Serum or plasma chloride measurement (moles/volume) 101 mmol/L 98-107 Carbon dioxide 25 mmol/L 21-32 Serum or plasma anion gap determination (moles/volume) 15 mmol/L 5-14 Serum or plasma urea nitrogen measurement (mass/volume) 17 mg/dL 7-18 Serum or plasma creatinine measurement (mass/volume) 0.90 mg/dL 0.60-1.30 Serum or plasma urea nitrogen/creatinine mass ratio 19 NRG Serum or plasma creatinine measurement with calculation of estimated glomerular filtration rate > NRG Serum or plasma glucose measurement (mass/volume) 118 mg/dL 70-105 Serum or plasma calcium measurement (mass/volume) 9.4 mg/dL 8.5-10.1 Serum or plasma total bilirubin measurement (mass/volume) 0.8 mg/dL 0.1-1.0 Serum or plasma alkaline phosphatase measurement (enzymatic activity/volume) 46 U/L 40-136 Serum or plasma aspartate aminotransferase measurement (enzymatic activity/volume) 11 U/L 5-34 Serum or plasma alanine aminotransferase measurement (enzymatic activity/volume) 12 U/L 0-55 Serum or plasma protein measurement (mass/volume) 6.7 g/dL 6.4-8.2 Serum or plasma albumin measurement (mass/volume) 3.7 g/dL 3.2-4.5 CALCIUM CORRECTED 9.6 mg/dL 8.5-10.1 Magnesium - 01/09/19 05:38 Magnesium 1.3 mg/dL 1.8-2.4 Capillary blood glucose measurement by glucometer (mass/volume) - 01/09/19 11:28 Capillary blood glucose measurement by glucometer (mass/volume) 192 mg/dL 70-110 Capillary blood glucose measurement by glucometer (mass/volume) - 01/09/19 16:46 Capillary blood glucose measurement by glucometer (mass/volume) 177 mg/dL 70-110 Capillary blood glucose measurement by glucometer (mass/volume) - 01/09/19 20:50 Capillary blood glucose measurement by glucometer (mass/volume) 164 mg/dL 70-110 Capillary blood glucose measurement by glucometer (mass/volume) - 01/10/19 05:27 Capillary blood glucose measurement by glucometer (mass/volume) 117 mg/dL 70-110 Capillary blood glucose measurement by glucometer (mass/volume) - 01/10/19 11:34 Capillary blood glucose measurement by glucometer (mass/volume) 155 mg/dL 70-110 Encounters ACCT No. Visit Date/Time Discharge Status Pt. Type Provider Facility Loc./Unit Complaint [id number] 01/12/2019 13:22:00 01/12/2019 23:59:59 CLS Outpatient LUCIANA GERARDO [facility] ONC [id number] 01/07/2019 16:20:00 01/10/2019 13:40:00 DIS Outpatient LORIE YODER MD [facility] 4TH CHF,HYPOXIA [id number] 11/16/2018 13:43:00 12/30/2018 00:01:00 DIS Outpatient LUCIANA GERARDO [facility] ONC [id number] 07/07/2018 14:49:00 08/30/2018 00:01:00 DIS Outpatient LUCIANA GERARDO [facility] ONC [id number] 05/29/2018 13:54:00 05/31/2018 00:01:00 DIS Outpatient LUCIANA GERARDO [facility] ONC [id number] 05/25/2018 16:21:00 05/28/2018 15:45:00 DIS Inpatient LORIE YODER MD [facility] [address] IRON DEFICIENCY ANEMIA [id number] 03/09/2018 09:53:00 03/09/2018 13:58:00 DIS Outpatient MANUEL LORD MD [facility] ENDO BLACK STOOLS/GERD [id number] 03/02/2018 06:07:00 03/02/2018 10:55:00 DIS Outpatient MANUEL LORD MD [facility] PREOP COLONOSCOPY/EGD [id number] 02/10/2018 21:08:00 02/11/2018 17:08:00 DIS Inpatient LORIE YODER MD [facility] [address] ACUTE BLOOD LOSS ANEMIA [id number] 10/22/2017 11:00:00 10/22/2017 23:59:59 CLS Preadmit ROSALIE POWELL FACC, SINDY SCHREIBER CCDS [facility] CARD I25.10 CAD [id number] 10/21/2017 11:24:00 10/21/2017 23:59:59 CLS Outpatient SINDY WIGGINS MD, FACC, FACP CCDS [facility] CARD I25.10 CAD [id number] 10/26/2015 10:52:00 10/26/2015 23:59:59 CLS Outpatient RAHEEL KEITA MD [facility] RAD POOR SPEECH, ASSYMETRICAL HEARING LOSS [id number] 08/31/2015 11:20:00 08/31/2015 15:18:00 DIS Emergency RAOESTELITA STUDENT SUCCESS COACH [facility] ER L SIDE FACIAL DROOPING [id number] 08/10/2015 16:20:00 08/14/2015 11:51:00 DIS Inpatient ELIZABETH MALDONADO DO [facility] 4TH CHF [id number] 08/10/2015 14:16:00 08/10/2015 23:59:59 CLS Outpatient ELIZABETH MALDONADO DO [facility] RAD HYPOXIA [id number] 06/22/2015 07:58:00 06/22/2015 23:59:59 CLS Outpatient SINDY WIGGINS MD, FACC, FACP CCDS [facility] CARD DYSPNEA,CAD,AFIB [id number] 06/09/2015 09:06:00 06/09/2015 23:59:59 CLS Outpatient SINDY WIGGINS MD, FACC, FACP CCDS [facility] CARD AFIB [id number] 02/10/2015 11:38:00 02/17/2015 12:29:00 DIS Outpatient ELIZABETH MALDONADO DO [facility] CR STENT 07/2014 [id number] 02/13/2015 10:00:00 02/13/2015 23:59:59 CLS Preadmit ELIZABETH MALDONADO DO [facility] CR STENT 07/2014 [id number] 02/08/2015 11:33:00 02/12/2015 00:01:00 DIS Outpatient ELIZABETH MALDONADO DO [facility] CR STENT 07/2014 [id number] 07/19/2014 07:10:00 07/20/2014 12:30:00 DIS Outpatient ROSALIE POWELL FACC, SINDY SCHREIBER CCDS [facility] CATH ABNORMAL STRESS,CAD [id number] 07/07/2014 08:03:00 07/07/2014 23:59:59 CLS Outpatient BAIMA, JACOB L [place] [facility] CARD PAF,DYPSNEA,HTN,HLP [id number] 07/05/2014 09:52:00 07/05/2014 23:59:59 CLS Outpatient CLAUDIA PARSONSHER L [place] [facility] CARD PAF,DYPSNEA,HTN,HLP [id number] 10/27/2011 10:17:00 Document Registration [id number] 06/13/2011 11:03:00 Document Registration [id number] 06/06/2011 10:25:00 Document Registration [id number] 05/23/2011 08:41:00 Document Registration [id number] 05/09/2011 14:46:00 Document Registration [id number] 05/07/2011 09:28:00 Document Registration [id number] 01/18/2010 08:22:00 Document Registration [id number] 01/04/2010 10:38:00 Document Registration
[2019-01-26 19:13] LABS: BASOPHILS # (AUTO) 0.1 10^3/uL (0.0-0.1); BASOPHILS % (AUTO) 1 % (0-10); EOSINOPHILS # (AUTO) 0.1 10^3/uL (0.0-0.3); EOSINOPHILS % (AUTO) 1 % (0-10); HEMATOCRIT 21 % (35-52); LYMPHOCYTES # (AUTO) 1.1 X 10^3 (1.0-4.0); LYMPHOCYTES % (AUTO) 10 % (12-44); MEAN CORPUSCULAR HEMOGLOBIN 27 PG (25-34); MEAN CORPUSCULAR HGB CONC 30 G/DL (32-36); MEAN CORPUSCULAR VOLUME 92 FL (80-99); MEAN PLATELET VOLUME 11.8 FL (7.4-10.4); MONOCYTES # (AUTO) 0.5 X 10^3 (0.0-1.0); MONOCYTES % (AUTO) 5 % (0-12); NEUTROPHILS # (AUTO) 8.7 X 10^3 (1.8-7.8); NEUTROPHILS % (AUTO) 84 % (42-75); PLATELET COUNT 273 10^3/uL (130-400); RED CELL DISTRIBUTION WIDTH 19.8 % (10.0-14.5); WHITE BLOOD COUNT 10.4 10^3/uL (4.3-11.0)
[2019-01-26 19:18] LABS: HEMOGLOBIN 6.4 G/DL (11.5-16.0)
--- NOTE | 2019-01-26 19:20 | NUR ---
PT DENIES BEING ABLE TO VOID AT THIS TIME.
[2019-01-26 19:28] LABS: INR 4.8 (0.8-1.4)
[2019-01-26 19:29] LABS: PROTHROMBIN TIME PATIENT 47.2 SEC (12.2-14.7)
--- NOTE | 2019-01-26 19:29 | Diagnostic Imaging Report ---
INDICATION: Shortness of breath. COMPARISON: 01/07/2019 FINDINGS: There is cardiomegaly. The mediastinum is unremarkable. There is no pleural effusion, pneumothorax or pneumonia. There is thoracic spondylosis. IMPRESSION: 1. No acute cardiopulmonary abnormality. 2. Cardiomegaly. Dictated by: Dictated on workstation # [id number]
--- NOTE | 2019-01-26 19:30 | NUR ---
RECEIVED CRITICAL LAB VALUE PROTIME 47.2, PHYSICIAN NOTIFIED
[2019-01-26 19:35] LABS: ALBUMIN 3.6 GM/DL (3.2-4.5); BILIRUBIN,TOTAL 0.3 MG/DL (0.1-1.0); CALCIUM 9.2 MG/DL (8.5-10.1); CREATININE SERUM 1.46 MG/DL (0.60-1.30); MAGNESIUM 1.7 MG/DL (1.8-2.4); POTASSIUM 4.6 MMOL/L (3.6-5.0)
[2019-01-26] MEDS ORDERED: NS IV 1000 ML 1,000 ML IV ONE (20:01)
--- NOTE | 2019-01-26 20:18 | NUR ---
pt assissted to reposition, blood transfusion began. pt denies other needs at this time.
--- NOTE | 2019-01-26 20:39 | ED General ---
General Chief Complaint: Respiratory Problems Stated Complaint: SOA Nursing Triage Note: soa, dizziness/weakness, dark tarry stools Nursing Sepsis Screen: No Definite Risk Source of Information: Patient Exam Limitations: No Limitations History of Present Illness Date Seen by Provider: January 26, 2019 Time Seen by Provider: 18:57 Initial Comments This 78-year-old woman presents to the emergency room with a few days of dyspnea on exertion, dizziness with walking, and black tarry stools. She has also noticed a small amount of red blood when wiping but no red blood in the stool. She presents via EMS from home. EMS reports blood pressure was stable at 114/60. Blood sugar was 153. Oxygen saturation was 93 percent on room air and 99 percent on 3 L by nasal cannula. She does generally wear oxygen at home and has COPD. Patient takes Pradaxa for atrial fibrillation. Her last dose was with her morning meds which were actually taken somewhere around 14:00. Her primary care providers Dr. Kyle. Her collaborating supervising physician is Dr. Blandon. Allergies and Home Medications Allergies Coded Allergies: Vu Known Allergies (Verified Allergy, Unknown, 03/26/06) Home Medications Amlodipine Besylate 5 Mg Tablet, 5 MG PO DAILY, (Reported) Aspirin 81 Mg Tablet.dr, 81 MG PO DAILY, (Reported) Carvedilol 25 Mg Tablet, 25 MG PO BID, (Reported) Cholecalciferol (Vitamin D3) 1,000 Unit Capsule, 1,000 UNIT PO DAILY, (Reported) Dabigatran Etexilate Mesylate 150 Mg Capsule, 150 MG PO BID, (Reported) Furosemide 80 Mg Tablet, 80 MG PO DAILY Prescribed by: ERMELINDA OLMSTEAD on 01/10/19 1144 Gabapentin 300 Mg Capsule, 300 MG PO 1999,2300, (Reported) Glimepiride 4 Mg Tablet, 4 MG PO BID PRN for BLOOD SUGAR >200, (Reported) Losartan Potassium 100 Mg Tablet, 100 MG PO DAILY, (Reported) Lovastatin 20 Mg Tablet, 20 MG PO HS, (Reported) Metformin HCl 1,000 Mg Tablet, 1,000 MG PO BID, (Reported) Mineral Oil/Petrolatum,White 3.5 Gm Oint...g., OU HS PRN for DRY EYES, (Reported) [place] 3 Polyunsat Fatty Acids 1,000 Mg Cap, 1,000 MG PO DAILY, (Reported) Pantoprazole Sodium 40 Mg Tablet.dr, 40 MG PO DAILY, (Reported) Polyvinyl Alcohol/Povidone 15 Ml Drops, 1-2 DROPS OU QID PRN for DRY EYES, (Rep orted) Potassium Chloride 10 Meq Capsule.er, 10 MEQ PO DAILY Prescribed by: ERMELINDA OLMSTEAD on 01/10/19 1144 Patient Home Medication List Home Medication List Reviewed: Yes Review of Systems Review of Systems Constitutional: see HPI EENTM: no symptoms reported Respiratory: see HPI Cardiovascular: see HPI Gastrointestinal: see HPI Genitourinary: no symptoms reported : No Musculoskeletal: no symptoms reported Skin: no symptoms reported Psychiatric/Neurological: No Symptoms Reported Hematologic/Lymphatic: See HPI Past Tnasnfm-[id number]-Fgtany Hx Past Med/Social Hx: Reviewed and Corrections made Patient Social History Alcohol Use: Denies Use Recreational Drug Use: No Smoking Status: Former Smoker Type Used: Cigarettes Former Smoker, Quit: Feb 11, 1985 2nd Hand Smoke Exposure: No Recent Foreign Travel: No Contact w/Someone Who Travel: No Recent Infectious Disease Expo: No Recent Hopitalizations: No Immunizations Up To Date Tetanus Booster (TDap): Unknown PED Vaccines UTD: No Date of Pneumonia Vaccine: Jul 19, 2011 Date of Influenza Vaccine: Jun 01, 2015 Seasonal Allergies Seasonal Allergies: No Past Medical History Surgeries: Yes (cyst from breast bone removed, carpal tunnel, cardiac stents) Coronary Stent Respiratory: Yes COPD Currently Using CPAP: No Currently Using BIPAP: No Cardiac: Yes Atrial Fibrillation, Cardiomyopathy, Heart Attack, High Cholesterol Neurological: Yes Neuropathy : No Reproductive Disorders: No Female 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 Sexually Transmitted Disease: No HIV/AIDS: No Genitourinary: No Gastrointestinal: Yes Gastroesophageal Reflux Musculoskeletal: Yes Arthritis Endocrine: Yes Diabetes, Non-Insulin dep HEENT: Yes Cataract Loss of Vision: Denies Hearing Impairment: Denies Cancer: No Psychosocial: Yes Depression Integumentary: No Blood Disorders: Yes (anemia) Adverse Reaction/Blood Tranf: No Family Medical History Reviewed Nursing Family Hx Cardiovascular disease 19 FATHER 19 MOTHER FH: stroke FHx: diabetes mellitus Physical Exam Vital Signs Vital Signs - First Documented 01/26/19 18:59 Temp 97.0 Pulse 79 Resp 18 B/P (MAP) 91/38 (55) Pulse Ox 100 O2 Delivery Nasal Cannula O2 Flow Rate 2.00 Capillary Refill : Less Than 3 Seconds Height, Weight, BMI Height: 5'2.00" Weight: 200lbs. 0oz. 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 Norm as Tested Skin: Normal Color, Warm/Dry Progress/Results/Core Measures Suspected Sepsis Recent Fever Within 48 Hours: No Infection Criteria Present: None New/Unexplained Altered Menta: No Sepsis Screen: No Definite Risk SIRS Temperature:97.6 Pulse: 70 Respiratory Rate: 16 Laboratory Tests 01/26/19 19:08: White Blood Count 10.4 Blood Pressure 110 /52 Mean: 71 Laboratory Tests 01/26/19 19:08: Creatinine 1.46H, INR Comment 4.8H, Platelet Count 273, Total Bilirubin 0.3 Results/Orders Lab Results Laboratory Tests Test 01/26/19 19:08 Range/Units White Blood Count 10.4 4.3-11.0 10^3/uL Red Blood Count 2.34 L 4.35-5.85 10^6/uL Hemoglobin 6.4 *L 11.5-16.0 G/DL Hematocrit 21 L 35-52 % Mean Corpuscular Volume 92 80-99 FL Mean Corpuscular Hemoglobin 27 25-34 PG Mean Corpuscular Hemoglobin Concent 30 L 32-36 G/DL Red Cell Distribution Width 19.8 H 10.0-14.5 % Platelet Count 273 130-400 10^3/uL Mean Platelet Volume 11.8 H 7.4-10.4 FL Neutrophils (%) (Auto) 84 H 42-75 % Lymphocytes (%) (Auto) 10 L 12-44 % Monocytes (%) (Auto) 5 0-12 % Eosinophils (%) (Auto) 1 0-10 % Basophils (%) (Auto) 1 0-10 % Neutrophils # (Auto) 8.7 H 1.8-7.8 X 10^3 Lymphocytes # (Auto) 1.1 1.0-4.0 X 10^3 Monocytes # (Auto) 0.5 0.0-1.0 X 10^3 Eosinophils # (Auto) 0.1 0.0-0.3 10^3/uL Basophils # (Auto) 0.1 0.0-0.1 10^3/uL Prothrombin Time 47.2 *H 12.2-14.7 SEC INR Comment 4.8 H 0.8-1.4 Activated Partial Thromboplast Time 86 H 24-35 SEC Sodium Level 140 135-145 MMOL/L Potassium Level 4.6 3.6-5.0 MMOL/L Chloride Level 106 98-107 MMOL/L Carbon Dioxide Level 22 21-32 MMOL/L Anion Gap 12 5-14 MMOL/L Blood Urea Nitrogen 80 H 7-18 MG/DL Creatinine 1.46 H 0.60-1.30 MG/DL Estimat Glomerular Filtration Rate 35 BUN/Creatinine Ratio 55 Glucose Level 116 H 70-105 MG/DL Calcium Level 9.2 8.5-10.1 MG/DL Corrected Calcium 9.5 8.5-10.1 MG/DL Magnesium Level 1.7 L 1.8-2.4 MG/DL Total Bilirubin 0.3 0.1-1.0 MG/DL Aspartate Amino Transf (AST/SGOT) 10 5-34 U/L Alanine Aminotransferase (ALT/SGPT) 6 0-55 U/L Alkaline Phosphatase 34 L 40-136 U/L B-Type Natriuretic Peptide 415.1 H <100.0 PG/ML Total Protein 6.0 L 6.4-8.2 GM/DL Albumin 3.6 3.2-4.5 GM/DL My Orders Orders - JUAN WALLACE MD Chest Pa/Lat (2 View) (01/26/19 19:04) Ed Iv/Invasive Line Start (01/26/19 19:04) Ekg Tracing (01/26/19 19:04) Monitor-Rhythm Ecg Trace Only (01/26/19 19:04) BNP (01/26/19 19:04) Cbc With Automated Diff (01/26/19 19:04) Comprehensive Metabolic Panel (01/26/19 19:04) Magnesium (01/26/19 19:04) Ua Culture If Indicated (01/26/19 19:04) Fecal Occult Bedside (01/26/19 19:06) Protime With Inr (01/26/19 19:12) Partial Thromboplastin Time (01/26/19 19:12) Red Cells Leukocytes Reduced (01/26/19 19:30) Type And Screen (01/26/19 19:30) Ed Iv/Invasive Line Start (01/26/19 20:01) Ns Iv 1000 Ml (Sodium Chloride 0.9%) (01/26/19 20:01) Pantoprazole Injection (Protonix Injecti (01/26/19 21:45) Red Cells Leukocytes Reduced (01/26/19 21:36) Medications Given in ED Current Medications Medications Dose Ordered Sig/Pat Route Start Time Stop Time Status Last Admin Dose Admin Sodium Chloride 1,000 ml @ 0 mls/hr Q0M ONCE IV 01/26/19 20:01 01/26/19 20:02 DC 01/26/19 20:07 0 MLS/HR Vital Signs/I&O 01/26/19 01/26/19 01/26/19 01/26/19 18:59 20:20 20:30 20:40 Temp 97.0 97.1 97.6 97.4 Pulse 79 73 70 76 Resp 18 14 16 16 B/P (MAP) 91/38 (55) 73/40 110/52 130/68 Pulse Ox 100 100 O2 Delivery Nasal Cannula Nasal Cannula Nasal Cannula Nasal Cannula O2 Flow Rate 2.00 2.00 2.00 2.00 01/26/19 01/26/19 01/26/19 01/26/19 20:44 21:00 21:09 21:09 Temp 97.4 96.6 98.0 98.0 Pulse 74 75 79 79 Resp 16 16 18 18 B/P (MAP) 119/95 119/60 111/53 (72) 111/53 Pulse Ox 100 98 98 O2 Delivery Nasal Cannula Nasal Cannula Nasal Cannula Nasal Cannula O2 Flow Rate 2.00 2.00 2.00 2.00 01/26/19 01/26/19 01/26/19 01/26/19 21:15 21:30 21:55 21:59 Temp 97.1 97.1 Pulse 78 88 76 76 Resp 14 16 16 16 B/P (MAP) 126/61 115/75 117/64 117/64 (81) Pulse Ox 99 98 98 O2 Delivery Nasal Cannula Nasal Cannula Nasal Cannula Nasal Cannula O2 Flow Rate 2.00 2.00 2.00 2.00 01/26/19 01/26/19 01/26/19 01/26/19 22:40 23:00 23:03 23:21 Temp 98.4 97.6 97.4 Pulse 79 80 80 78 Resp 18 20 20 B/P (MAP) 111/53 (72) 101/50 99/51 Pulse Ox 100 97 100 O2 Delivery Nasal Cannula Nasal Cannula Nasal Cannula O2 Flow Rate 2.00 2.00 2.00 Capillary Refill : Less Than 3 Seconds Blood Pressure Mean: 71 Progress Note : Progress Note Patient was seen and examined upon arrival. She was found to have a hemoglobin of 6.4. 2 units of packed red blood cells were given in the ER as well as 1 L of IV normal saline. Patient did have a few hypotensive measurements prior to completion of IV fluids. Her lowest blood pressure was 74/40. She was not acutely symptomatic with these hypotensive episodes. Blood pressure remained stable in the 110s after fluid resuscitation. Rectal exam revealed no active bleeding and Hemoccult was negative. Case was discussed with Dr. Zepeda, Dr. Tran, and Dr. Archer. Consensus was that patient could be admitted to the floor with stable vital signs and no evidence of active bleeding. Praxbind was considered but was not given again due to no evidence of active bleeding and stable vital signs. An additional 2 units of PRBC were ordered after discussion with the admitting team. Protonix 40 mg was given in the ER as well. ECG Initial ECG Impression Date: January 26, 2019 Initial ECG Impression Time: 19:28 Initial ECG Rate: 73 Initial ECG Impression: Atrial Fibrillation Comment Rate controlled atrial fibrillation with no ST elevation or depression. Diagnostic Imaging Diagonstic Imaging: Xray Plain Films/CT/US/NM/MRI: chest Comments Chest x-ray viewed by me and report reviewed. See report below: NAME: MARIYA ARMIJO MED REC#: [id number] PT STATUS: REG ER : 1940 PHYSICIAN: JUAN WALLACE MD ADMIT DATE: 01/26/19/ER Signed Date of Exam: 01/26/19 CHEST PA/LAT (2 VIEW) INDICATION: Shortness of breath. COMPARISON: 01/07/2019 FINDINGS: There is cardiomegaly. The mediastinum is unremarkable. There is no pleural effusion, pneumothorax or pneumonia. There is thoracic spondylosis. IMPRESSION: 1. No acute cardiopulmonary abnormality. 2. Cardiomegaly. Dictated by: Dictated on workstation # [id number] Dict: 01/26/191923 Trans: 01/26/191938 Interpreted by: JAJA DAVE MD Electronically signed by: JAJA DAVE MD 01/26/191938 Departure Communication (Admissions) Time/Spoke to Admitting Phy: 21:30 Dr. Tran Time/Spoke to Consulting Phy: 21:[address] Dr[address] Archer Impression Primary Impression: Severe anemia Additional Impressions: Gastrointestinal bleed Qualified Codes: K92.1 - Melena Atrial fibrillation Qualified Codes: I48.2 - Chronic atrial fibrillation Disposition: ADMITTED INPATIENT Condition: Improved Admissions Decision to Admit Reason: Admit from ER (General) Decision to Admit/Date: January 26, 2019 Time/Decision to Admit Time: 19:30 Departure-Patient Inst. Referrals: ELIZABETH KYLE DO (PCP/Family) Primary Care Physician JUAN WALLACE MD January 26, 2019 20:39
[2019-01-26] MEDS ORDERED: PANTOPRAZOLE 40 MG (PROTONIX) VIAL IV ONE (21:45)
--- OUTSIDE RECORDS SUMMARY | 2019-01-26 21:57 | XMS REPORT | Continuity of Care Document ---
[...] FACP CCDS Ot 414.01 CORONARY ATHEROSCLEROSIS OF [place] CORON 07/20/2014 SINDY WIGGINS MD, FACC FACP [...] INDEX 40.0-44.9, ADULT 08/09/2014 BAIMA, JACOB L DAY CARE PROVIDER Ot 272.4 08/09/2014 BAIMA, JACOB L DAY CARE PROVIDER Ot 401.9 08/09/2014 BAIMA, JACOB L DAY CARE PROVIDER Ot 427.31 08/09/2014 BAIMA, JACOB L DAY CARE PROVIDER Ot 784.0 08/09/2014 BAIMA, JACOB L DAY CARE PROVIDER Ot 786.09 08/09/2014 BAIMA, JACOB L DAY CARE PROVIDER Ot 786.59 08/19/2014 BAIMA, JACOB L DAY CARE PROVIDER Ot 272.4 08/19/2014 BAIMA, JACOB L DAY CARE PROVIDER Ot 401.9 08/19/2014 BAIMA, JACOB L DAY CARE PROVIDER Ot 427.31 08/19/2014 BAIMA, JACOB L DAY CARE PROVIDER Ot 784.0 08/19/2014 BAIMA, JACOB L DAY CARE PROVIDER Ot 786.09 08/19/2014 BAIMA, JACOB L DAY CARE PROVIDER Ot 786.59 08/22/2014 BAIMA, JACOB L DAY CARE PROVIDER Ot 272.4 08/22/2014 BAIMA, JACOB L DAY CARE PROVIDER Ot 401.9 08/22/2014 BAIMA, JACOB L DAY CARE PROVIDER Ot 427.31 08/22/2014 BAIMA, JACOB L DAY CARE PROVIDER Ot 786.09 08/22/2014 BAIMA, JACOB L DAY CARE PROVIDER Ot V58.61 09/06/2014 BAIMA, JACOB L DAY CARE PROVIDER Ot 272.4 09/06/2014 BAIMA, JACOB L DAY CARE PROVIDER Ot 401.9 09/06/2014 BAIMA, JACOB L DAY CARE PROVIDER Ot 427.31 09/06/2014 BAIMA, JACOB L DAY CARE PROVIDER Ot 786.09 09/06/2014 BAIMA JACOB L DAY CARE PROVIDER Ot V58.61 01/03/2015 ELIZABETH MALDONADO DO Ot V45.82 01/03/2015 ELIZABETH MALDONADO DO Ot V57.89 02/12/2015 ELIZABETH MALDONADO DO Ot V45.82 PERCUTANEOUS TRANSLUM CORON ANGIOPLASTY 02/12/2015 ELIAZBETH MALDONADO DO Ot V57.89 REHABILITATION PROC NEC [...] 06/09/2015 Ot V58.69 06/09/2015 BAIMA, JACOB L DAY CARE PROVIDER Ot 272.4 06/09/2015 BAIMA, JACOB L DAY CARE PROVIDER Ot 401.9 06/09/2015 BAIMA, JACOB L DAY CARE PROVIDER Ot 427.31 06/09/2015 BAIMA, JACOB L DAY CARE PROVIDER Ot 786.09 06/09/2015 BAIMA, JACOB L DAY CARE PROVIDER Ot V58.61 06/09/2015 BAIMA, JACOB L DAY CARE PROVIDER Ot 272.4 06/09/2015 BAIMA, JACOB L DAY CARE PROVIDER Ot 401.9 06/09/2015 BAIMA, JACOB L DAY CARE PROVIDER Ot 427.31 06/09/2015 BAIMA, JACOB L DAY CARE PROVIDER Ot 784.0 06/09/2015 BAIMA, JACOB L DAY CARE PROVIDER Ot 786.09 06/09/2015 BAIMA, JACOB L DAY CARE PROVIDER Ot 786.59 06/09/2015 ELIZABETH MALDONADO DO Ot [...] KNIGHTC, ALI FACP CCDS Ot I25.10 06/29/2015 ROSLAIE KNIGHTC, ALI FACP CCDS Ot I48.91 06/29/2015 [...] FACP CCDS Ot I48.91 07/31/2015 ROSALIE POWELL [facility], ALI FACP CCDS Ot R06.09 08/14/2015 ELIZABETH MALDONADO DO Ot D64.9 ANEMIA, UNSPECIFIED 08/14/2015 ELIZABETH MALDONADO DO Ot 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 08/14/2015 ELIZABETH MALDONADO DO Ot E66.9 OBESITY, UNSPECIFIED 08/14/2015 ELIZABETH MALDONADO DO, Ot E78.5 HYPERLIPIDEMIA, UNSPECIFIED 08/14/2015 ELIZABETH MALDONADO DO Ot I10 ESSENTIAL (PRIMARY) HYPERTENSION 08/14/2015 ELIZABETH MALDONADO DO, Ot I25.10 ATHSCL HEART DISEASE OF [place] CORONARY 08/14/2015 ELIZABETH MALDONADO DO, Ot I27.2 [...] MALDONADO DO Ot R09.02 08/31/2015 ESTELITA RAO TREASURY CONSULTANT Ot 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 08/31/2015 ESTELITA RAO TREASURY CONSULTANT Ot H60.12 CELLULITIS OF LEFT EXTERNAL EAR 09/22/2015 ELIZABETH MALDONADO DO Ot R09.02 11/15/2015 NEELA POWELL, RAHEEL Gastelum Ot H91.90 11/28/2015 NEELA POWELL, RAHEEL Gastelum Ot H91.90 10/21/2017 BAIMA, JACOB L DAY CARE PROVIDER Ot 272.4 HYPERLIPIDEMIA NEC/NOS 10/21/2017 BAIMA, JACOB L DAY CARE PROVIDER Ot 401.9 HYPERTENSION NOS 10/21/2017 BAIMA, JACOB L DAY CARE PROVIDER Ot 427.31 ATRIAL FIBRILLATION 10/21/2017 BAIMA, JACOB L DAY CARE PROVIDER Ot 786.09 RESPIRATORY ABNORM NEC 10/21/2017 BAIMA, JACOB L DAY CARE PROVIDER Ot V58.61 ANTICOAGULANTS,LT,CURRENT USE 10/21/2017 BAIMA, JACOB L DAY CARE PROVIDER Ot 272.4 HYPERLIPIDEMIA NEC/NOS 10/21/2017 BAIMA, JCAOB L DAY CARE PROVIDER Ot 401.9 HYPERTENSION NOS 10/21/2017 BAIMA, JACOB L DAY CARE PROVIDER Ot 427.31 ATRIAL FIBRILLATION 10/21/2017 BAIMA, JACOB L DAY CARE PROVIDER Ot 784.0 HEADACHE 10/21/2017 BAIMA, JACOB L DAY CARE PROVIDER Ot 786.09 RESPIRATORY ABNORM NEC 10/21/2017 BAIMA, JACOB L DAY CARE PROVIDER Ot 786.59 CHEST PAIN NEC 10/21/2017 ELIZABETH MALDONADO DO Ot V45.82 PERCUTANEOUS TRANSLUM CORON ANGIOPLASTY 10/21/2017 ELIZABETH MALDONADO DO Ot V57.89 REHABILITATION PROC NEC 10/21/2017 ROSALIE POWELL FACC, SINDY KNIGHTP CCDS Ot E78.5 HYPERLIPIDEMIA, UNSPECIFIED 10/21/2017 ROSALIE POWELL FACC, ALI FACP CCDS Ot I10 ESSENTIAL (PRIMARY) HYPERTENSION 10/21/2017 ROSALIE POWELL FACC, SINDY FACP CCDS Ot I25.10 ATHSCL HEART DISEASE OF [place] CORONARY 10/21/2017 ROSALIE POWELL FACC, ALI FACP CCDS Ot I48.91 UNSPECIFIED ATRIAL FIBRILLATION 10/21/2017 ROSALIE POWELL FACC, ALI FACP CCDS Ot R06.09 OTHER FORMS OF DYSPNEA 10/21/2017 ROSALIE POWELL FACC, ALI FACP CCDS Ot E78.5 HYPERLIPIDEMIA, UNSPECIFIED 10/21/2017 ROSALIE POWELL FACC, ALI FACP CCDS Ot I10 ESSENTIAL (PRIMARY) HYPERTENSION 10/21/2017 ROSALIE POWELL FACC, ALI FACP CCDS Ot I25.10 ATHSCL HEART DISEASE OF [place] CORONARY 10/21/2017 ROSALIE POWELL FACC, ALI FACP [...] CCDS Ot I25.10 ATHSCL HEART DISEASE OF [place] CORONARY 10/22/2017 ROSALIE POWELL FACC, ALI FACP [...] CCDS Ot I25.10 ATHSCL HEART DISEASE OF [place] CORONARY 11/20/2017 ROSALIE POWELL FAC, ALI FACP [...] MD Ot I25.10 ATHSCL HEART DISEASE OF [place] CORONARY 02/11/2018 LORIE YODER MD Ot I25.2 [...] MD Ot I25.10 ATHSCL HEART DISEASE OF [place] CORONARY 02/11/2018 LORIE YODER MD Ot I25.2 [...] OTHER PREPROCEDURAL EXAMIN 03/09/2018 BAIMA, JACOB L DAY CARE PROVIDER Ot 272.4 HYPERLIPIDEMIA NEC/NOS 03/09/2018 BAIMA, JACOB L DAY CARE PROVIDER Ot 401.9 HYPERTENSION NOS 03/09/2018 BAIMA, JACOB L DAY CARE PROVIDER Ot 427.31 ATRIAL FIBRILLATION 03/09/2018 BAIMA, JACOB L DAY CARE PROVIDER Ot 786.09 RESPIRATORY ABNORM NEC 03/09/2018 BAIMA, JACOB L DAY CARE PROVIDER Ot V58.61 ANTICOAGULANTS,LT,CURRENT USE 03/09/2018 BAIMA, JACOB L DAY CARE PROVIDER Ot 272.4 HYPERLIPIDEMIA NEC/NOS 03/09/2018 BAIMA, JACOB L DAY CARE PROVIDER Ot 401.9 HYPERTENSION NOS 03/09/2018 BAIMA, JACOB L DAY CARE PROVIDER Ot 427.31 ATRIAL FIBRILLATION 03/09/2018 BAIMA, JACOB L DAY CARE PROVIDER Ot 784.0 HEADACHE 03/09/2018 BAIMA, JACOB L DAY CARE PROVIDER Ot 786.09 RESPIRATORY ABNORM NEC 03/09/2018 BAIMA, JACOB L DAY CARE PROVIDER Ot 786.59 CHEST PAIN NEC 03/09/2018 ELIZABETH MALDONADO DO Ot V45.82 PERCUTANEOUS TRANSLUM CORON ANGIOPLASTY 03/09/2018 ELIZABETH MALDONADO DO Ot V57.89 REHABILITATION PROC NEC 03/09/2018 ROSALIE POWELL FACC, SINDY FACP CCDS Ot E78.5 HYPERLIPIDEMIA, UNSPECIFIED 03/09/2018 ROSALIE POWELL FACC, SINDY FACP CCDS Ot I10 ESSENTIAL (PRIMARY) HYPERTENSION 03/09/2018 ROSALIE POWELL FACC, SINDY FACP CCDS Ot I25.10 ATHSCL HEART DISEASE OF [place] CORONARY 03/09/2018 ROSALIE POWELL FACC, SINDY KNIGHTP CCDS Ot I48.91 UNSPECIFIED ATRIAL FIBRILLATION 03/09/2018 ROSALIE MD FACC, ALI FACP CCDS Ot R06.09 OTHER FORMS OF DYSPNEA 03/09/2018 ROSALIE POWELL FACC, ALI FACP CCDS Ot E78.5 HYPERLIPIDEMIA, UNSPECIFIED 03/09/2018 ROSALIE POWELL FACC, ALI FACP CCDS Ot I10 ESSENTIAL (PRIMARY) HYPERTENSION 03/09/2018 ROSALIE POWELL FACC, ALI FACP CCDS Ot I25.10 ATHSCL HEART DISEASE OF [place] CORONARY 03/09/2018 ROSALIE POWELL FACC, ALI FACP [...] CCDS Ot I25.10 ATHSCL HEART DISEASE OF [place] CORONARY 03/09/2018 ROSALIE POWELL FACC, ALI FACP [...] MELENA 03/09/2018 MANUEL LORD MD Ot Z79.82 SOCCER COACH (CURRENT) USE OF ASPIRIN 03/09/2018 MANUEL LORD MD Ot Z79.84 HALFWAY (CURRENT) USE OF ORAL HYPOGLYC 03/09/2018 MANUEL [...] MELENA 03/11/2018 MANUEL LORD MD Ot Z79.82 SOCCER COACH (CURRENT) USE OF ASPIRIN 03/11/2018 MANUEL LORD MD Ot Z79.84 HALFWAY (CURRENT) USE OF ORAL HYPOGLYC 03/11/2018 MANUEL [...] MELENA 03/17/2018 MANUEL LORD MD Ot Z79.82 SOCCER COACH (CURRENT) USE OF ASPIRIN 03/17/2018 MANUEL LORD MD, Ot Z79.84 HALFWAY (CURRENT) USE OF ORAL HYPOGLYC 03/17/2018 MANUEL [...] MD, Ot I25.10 ATHSCL HEART DISEASE OF [place] CORONARY 05/26/2018 LORIE YODER MD, Ot I48.91 [...] ADULT 05/26/2018 LORIE YODER MD, Ot Z79.01 HALFWAY (CURRENT) USE OF ANTICOAGULANT 05/26/2018 LORIE YODER [...] MD Ot I25.10 ATHSCL HEART DISEASE OF [place] CORONARY 05/27/2018 LORIE YODER MD Ot I48.91 [...] ADULT 05/27/2018 LORIE YODER MD Ot Z79.01 SOCCER COACH (CURRENT) USE OF ANTICOAGULANT 05/27/2018 LORIE YODER [...] MD Ot I25.10 ATHSCL HEART DISEASE OF [place] CORONARY 05/27/2018 LORIE YODER MD Ot I25.2 [...] ADULT 05/27/2018 LORIE YODER MD Ot Z79.01 HALFWAY (CURRENT) USE OF ANTICOAGULANT 05/27/2018 LORIE YODER MD Ot Z79.84 HALFWAY (CURRENT) USE OF ORAL HYPOGLYC 05/27/2018 LORIE [...] MD, Ot I25.10 ATHSCL HEART DISEASE OF [place] CORONARY 05/27/2018 LORIE YODER MD, Ot I25.2 [...] ADULT 05/27/2018 LORIE YODER MD, Ot Z79.01 SOCCER COACH (CURRENT) USE OF ANTICOAGULANT 05/27/2018 LORIE YODER MD, Ot Z79.84 SOCCER COACH (CURRENT) USE OF ORAL HYPOGLYC 05/27/2018 LORIE [...] HEART DISEASE WITH HEART FA 05/28/2018 LORIE YODRE MD, Ot I25.10 ATHSCL HEART DISEASE OF [place] CORONARY 05/28/2018 LORIE YODER MD, Ot I25.2 [...] ADULT 05/28/2018 LORIE YODER MD, Ot Z79.01 HALFWAY (CURRENT) USE OF ANTICOAGULANT 05/28/2018 LORIE YODER MD, Ot Z79.84 HALFWAY (CURRENT) USE OF ORAL HYPOGLYC 05/28/2018 LORIE [...] MD, Ot I25.10 ATHSCL HEART DISEASE OF [place] CORONARY 05/28/2018 LORIE YODER MD, Ot I25.2 [...] ADULT 05/28/2018 LORIE YODER MD Ot Z79.01 SOCCER COACH (CURRENT) USE OF ANTICOAGULANT 05/28/2018 LORIE YODER MD, Ot Z79.84 HALFWAY (CURRENT) USE OF ORAL HYPOGLYC 05/28/2018 LORIE [...] CCDS Ot I25.10 ATHSCL HEART DISEASE OF [place] CORONARY 05/29/2018 ROSALIE KNIGHT, SINDY FACP CCDS [...] D64.9 ANEMIA, UNSPECIFIED 11/04/2018 BAIMA, JACOB L DAY CARE PROVIDER Ot 272.4 HYPERLIPIDEMIA NEC/NOS 11/04/2018 BAIMA, JACOB L DAY CARE PROVIDER Ot 401.9 HYPERTENSION NOS 11/04/2018 BAIMA, JACOB L DAY CARE PROVIDER Ot 427.31 ATRIAL FIBRILLATION 11/04/2018 BAIMA, JACOB L DAY CARE PROVIDER Ot 786.09 RESPIRATORY ABNORM NEC 11/04/2018 BAIMA, JACOB L DAY CARE PROVIDER Ot V58.61 ANTICOAGULANTS,LT,CURRENT USE 11/04/2018 BAIMA, AJCOB L DAY CARE PROVIDER Ot 272.4 HYPERLIPIDEMIA NEC/NOS 11/04/2018 BAIMA, JACOB L DAY CARE PROVIDER Ot 401.9 HYPERTENSION NOS 11/04/2018 BAIMA, JACOB L DAY CARE PROVIDER Ot 427.31 ATRIAL FIBRILLATION 11/04/2018 BAIMA, JACOB L DAY CARE PROVIDER Ot 784.0 HEADACHE 11/04/2018 BAIMA, JACOB L DAY CARE PROVIDER Ot 786.09 RESPIRATORY ABNORM NEC 11/04/2018 BAIMA, JACOB L DAY CARE PROVIDER Ot 786.59 CHEST PAIN NEC 11/04/2018 ELIZABETH MALDONADO DO Ot V45.82 PERCUTANEOUS TRANSLUM CORON ANGIOPLASTY 11/04/2018 ELIZABETH MALDONADO DO Ot V57.89 REHABILITATION PROC NEC 11/04/2018 ROSALIE KNIGHTC, ALI FACP CCDS Ot E78.5 HYPERLIPIDEMIA, UNSPECIFIED 11/04/2018 ROSALIE POWELL FACRolf, ALI FACP CCDS Ot I10 ESSENTIAL (PRIMARY) HYPERTENSION 11/04/2018 ROSALIE POWELL FACC, ALI FACP CCDS Ot I25.10 ATHSCL HEART DISEASE OF [place] CORONARY 11/04/2018 ROSALIE POWELL FACC, ALI FACP CCDS Ot I48.91 UNSPECIFIED ATRIAL FIBRILLATION 11/04/2018 ROSALIE POWELL FACC, ALI FACP CCDS Ot R06.09 OTHER FORMS OF DYSPNEA 11/04/2018 ROSALIE POWELL FACC, ALI FACP CCDS Ot E78.5 HYPERLIPIDEMIA, UNSPECIFIED 11/04/2018 ROSALIE POWELL FACC, ALI FACP CCDS Ot I10 ESSENTIAL (PRIMARY) HYPERTENSION 11/04/2018 ROSALIE KNIGHTC, ALI FACP CCDS Ot I25.10 ATHSCL HEART DISEASE OF [place] CORONARY 11/04/2018 ROSALIE POWELL FACC, ALI FACP [...] CCDS Ot I25.10 ATHSCL HEART DISEASE OF [place] CORONARY 11/04/2018 ROSALIE POWELL FACC, ALI FACP [...] MD, Ot I25.10 ATHSCL HEART DISEASE OF [place] CORONARY 01/08/2019 LORIE YODER MD, Ot I25.5 [...] ADULT 01/08/2019 LORIE YODER MD, Ot Z79.01 HALFWAY (CURRENT) USE OF ANTICOAGULANT 01/08/2019 LORIE YODER MD, Ot Z79.84 HALFWAY (CURRENT) USE OF ORAL HYPOGLYC 01/08/2019 LORIE [...] MD, Ot I25.10 ATHSCL HEART DISEASE OF [place] CORONARY 01/10/2019 LORIE YODER MD, Ot I25.5 [...] ADULT 01/10/2019 LORIE YODER MD Ot Z79.01 SOCCER COACH (CURRENT) USE OF ANTICOAGULANT 01/10/2019 LORIE YODER MD, Ot Z79.84 SOCCER COACH (CURRENT) USE OF ORAL HYPOGLYC 01/10/2019 LORIE YODER MD Ot Z87.11 PERSONAL HISTORY OF PEPTIC ULCER DISEASE 01/10/2019 OLRIE YODER MD, Ot Z87.891 PERSONAL HISTORY OF [...] MD, Ot I25.10 ATHSCL HEART DISEASE OF [place] CORONARY 01/10/2019 LORIE YODER MD, Ot I25.5 [...] ADULT 01/10/2019 LORIE YODER MD, Ot Z79.01 SOCCER COACH (CURRENT) USE OF ANTICOAGULANT 01/10/2019 LORIE YODER MD, Ot Z79.84 HALFWAY (CURRENT) USE OF ORAL HYPOGLYC 01/10/2019 LORIE YODER MD, Ot 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), AND CEREB INFRC W 01/10/2019 LORIE YODER MD, Ot Z87.11 PERSONAL HISTORY OF PEPTIC ULCER DISEASE 01/10/2019 LORIE YODER MD, Ot Z87.891 PERSONAL HISTORY OF NICOTINE DEPENDENCE 01/10/2019 LORIE YODER MD, Ot Z95.5 PRESENCE OF CORONARY ANGIOPLASTY IMPLANT Procedures Code Description Performed By Performed On [id number] DESTRUCTION OF STOMACH, ENDO 05/28/2018 [id number] EXCISION OF STOMACH, PYLORUS, ENDO, DIAG 05/28/2018 [...] RED CELLS LEUKO REDUCED AS1 TRANSFUSED 02/10/182042 [facility] Blood type T Indirect antibody screen panel - 02/10/18 19:23 ABO+Rh group AP NRG Transfusion band number [id number] Blood group antibody screen NEGATIVE NRG [...] ABO+Rh group AP NRG Transfusion band number [id number] Blood group antibody screen NEGATIVE NRG [...] Status Pt. Type Provider Facility Loc./Unit Complaint [id number] 01/12/2019 13:22:00 01/12/2019 23:59:59 CLS Outpatient LUCIANA GERARDO Via [facility] ONC [id number] 01/07/2019 16:20:00 01/10/2019 13:40:00 DIS Outpatient LORIE YODER MD Via [facility] 4TH CHF,HYPOXIA [id number] 11/16/2018 13:43:00 12/30/2018 00:01:00 DIS Outpatient LUCIANA GERARDO Via [facility] ONC [id number] 07/07/2018 14:49:00 08/30/2018 00:01:00 DIS Outpatient LUCIANA GERARDO Via [facility] ONC [id number] 05/29/2018 13:54:00 05/31/2018 00:01:00 DIS Outpatient LUCIANA GERARDO [facility] ONC [id number] 05/25/2018 16:21:00 05/28/2018 15:45:00 DIS Inpatient LORIE YODER MD Via [address] IRON DEFICIENCY ANEMIA [id number] 03/09/2018 09:53:00 03/09/2018 13:58:00 DIS Outpatient MANUEL LORD MD [facility] ENDO BLACK STOOLS/GERD [id number] 03/02/2018 06:07:00 03/02/2018 10:55:00 DIS Outpatient MANUEL LORD MD Via [facility] PREOP COLONOSCOPY/EGD [id number] 02/10/2018 21:08:00 02/11/2018 17:08:00 DIS Inpatient LORIE YODER MD Via [address] ACUTE BLOOD LOSS ANEMIA [id number] 10/22/2017 11:00:00 10/22/2017 23:59:59 CLS Preadmit ROSALIE POWELL FACC, SINDY SCHREIBER CCDS [facility] CARD I25.10 CAD [id number] 10/21/2017 11:24:00 10/21/2017 23:59:59 CLS Outpatient SINDY WIGGINS MD, FACC, FACP CCDS [facility] CARD I25.10 CAD [id number] 10/26/2015 10:52:00 10/26/2015 23:59:59 CLS Outpatient RAHEEL KEITA MD [facility] RAD POOR SPEECH, ASSYMETRICAL HEARING LOSS [id number] 08/31/2015 11:20:00 08/31/2015 15:18:00 DIS Emergency RAOESTELITA TREASURY CONSULTANT [facility] ER L SIDE FACIAL DROOPING [id number] 08/10/2015 16:20:00 08/14/2015 11:51:00 DIS Inpatient ELIZABETH MALDONADO DO Via [facility] 4TH CHF [id number] 08/10/2015 14:16:00 08/10/2015 23:59:59 CLS Outpatient ELIZABETH MALDONADO DO [facility] RAD HYPOXIA [id number] 06/22/2015 07:58:00 06/22/2015 23:59:59 CLS Outpatient SINDY WIGGINS MD, FACC, FACP CCDS [facility] CARD DYSPNEA,CAD,AFIB [id number] 06/09/2015 09:06:00 06/09/2015 23:59:59 CLS Outpatient SINDY WIGGINS MD, FACC, FACP CCDS [facility] CARD AFIB [id number] 02/10/2015 11:38:00 02/17/2015 12:29:00 DIS Outpatient ELIZABETH MALDONADO DO [facility] CR STENT 07/2014 [id number] 02/13/2015 10:00:00 02/13/2015 23:59:59 CLS Preadmit ELIZABETH MALDONADO DO [facility] CR STENT 07/2014 [id number] 02/08/2015 11:33:00 02/12/2015 00:01:00 DIS Outpatient ELIZABETH MALDONADO DO [facility] CR STENT 07/2014 [id number] 07/19/2014 07:10:00 07/20/2014 12:30:00 DIS Outpatient ROSALIE POWELL FACC, SINDY SCHREIBER CCDS [facility] CATH ABNORMAL STRESS,CAD [id number] 07/07/2014 08:03:00 07/07/2014 23:59:59 CLS Outpatient BAIMA, JACOB L DAY CARE PROVIDER Via [facility] CARD PAF,DYPSNEA,HTN,HLP [id number] 07/05/2014 09:52:00 07/05/2014 23:59:59 CLS Outpatient CLAUDIA PARSONSHER L DAY CARE PROVIDER [facility] CARD PAF,DYPSNEA,HTN,HLP [id number] 10/27/2011 10:17:00 Document Registration [id number] 06/13/2011 11:03:00 Document Registration [id number] 06/06/2011 10:25:00 Document Registration [id number] 05/23/2011 08:41:00 Document Registration [id number] 05/09/2011 14:46:00 Document Registration [id number] 05/07/2011 09:28:00 Document Registration [id number] 01/18/2010 08:22:00 Document Registration [id number] 01/04/2010 10:38:00 Document Registration
[2019-01-26] MEDS ORDERED: ONDANSETRON 4 MG/2 ML (SDV) Z0FRAN IVP PRN (22:30)
[2019-01-26] MEDS ORDERED: NS IV 500 ML 500 ML ONE (22:31)
[2019-01-26] MEDS ORDERED: NS IV 500 ML 500 ML IV ONE (22:35)
[2019-01-27] VITALS (12 sets, daily range): BP systolic 97–113; BP diastolic 47–59
[2019-01-27 05:55] LABS: BASOPHILS % (AUTO) 0 % (0-10); EOSINOPHILS # (AUTO) 0.1 10^3/uL (0.0-0.3); EOSINOPHILS % (AUTO) 1 % (0-10); HEMATOCRIT 29 % (35-52); LYMPHOCYTES # (AUTO) 1.3 X 10^3 (1.0-4.0); LYMPHOCYTES % (AUTO) 13 % (12-44); MEAN CORPUSCULAR HEMOGLOBIN 28 PG (25-34); MEAN CORPUSCULAR HGB CONC 33 G/DL (32-36); MEAN CORPUSCULAR VOLUME 86 FL (80-99); MEAN PLATELET VOLUME 11.9 FL (7.4-10.4); MONOCYTES # (AUTO) 0.7 X 10^3 (0.0-1.0); MONOCYTES % (AUTO) 7 % (0-12); NEUTROPHILS # (AUTO) 7.6 X 10^3 (1.8-7.8); NEUTROPHILS % (AUTO) 79 % (42-75); PLATELET COUNT 232 10^3/uL (130-400); RED CELL DISTRIBUTION WIDTH 17.9 % (10.0-14.5); WHITE BLOOD COUNT 9.6 10^3/uL (4.3-11.0)
[2019-01-27 06:06] LABS: HEMOGLOBIN 9.6 G/DL (11.5-16.0)
[2019-01-27 06:25] LABS: ALBUMIN 3.4 GM/DL (3.2-4.5); BILIRUBIN,TOTAL 0.8 MG/DL (0.1-1.0); CREATININE SERUM 1.24 MG/DL (0.60-1.30); POTASSIUM 4.3 MMOL/L (3.6-5.0); TOTAL PROTEIN 5.6 GM/DL (6.4-8.2)
--- NOTE | 2019-01-27 07:53 | Consultation-Cardiology ---
HPI-Cardiology Cardiology Consultation: Date of Consultation 01/27/19 Date of Admission Attending Physician Rory Tran MD Admitting Physician Nilton Kyle DO Consulting Physician JACOB AVALOS Review of Systems-Cardiology Review of Systems : No AOK-Hozsgw-Snobvd Hx Patient Social History Alcohol Use: Denies Use Recreational Drug Use: No Smoking Status: Former Smoker Former smoker/When Quit: Jul 19, 1988 Type Used: Cigarettes 2nd Hand Smoke Exposure: No Recent Foreign Travel: No Recent Infectious Disease Expo: No Hospitalization with Isolation: Denies Immunizations Up To Date Tetanus Booster (TDap): Unknown Date of Pneumonia Vaccine: Jul 19, 2011 Date of Influenza Vaccine: Jun 01, 2015 Past Medical History PMH As described under Assessment. Family Medical History Family Medical History: She reports her mother and father both had CAD. Family History: Cardiovascular disease 19 FATHER 19 MOTHER FH: stroke FHx: diabetes mellitus Allergies and Home Medications Allergies Coded Allergies: NKANo Known Allergies (Verified Allergy, Unknown, 03/26/06) Home Medications Amlodipine Besylate 5 Mg Tablet, 5 MG PO DAILY, (Reported) Carvedilol 25 Mg Tablet, 25 MG PO BID, (Reported) Cholecalciferol (Vitamin D3) 1,000 Unit Capsule, 1,000 UNIT PO DAILY, (Reported) Famotidine 20 Mg Tablet, 20 MG PO DAILY Prescribed by: JENNIFER WASHINGTON on 01/29/19 1041 Furosemide 80 Mg Tablet, 80 MG PO DAILY, (Reported) Gabapentin 300 Mg Capsule, 300 MG PO 2000,2300, (Reported) Glimepiride 4 Mg Tablet, 4 MG PO BID PRN for BLOOD SUGAR >200, (Reported) Losartan Potassium 100 Mg Tablet, 100 MG PO DAILY, (Reported) Lovastatin 20 Mg Tablet, 20 MG PO HS, (Reported) Metformin HCl 1,000 Mg Tablet, 1,000 MG PO BID, (Reported) Mineral Oil/Petrolatum,White 3.5 Gm Oint...g., OU HS PRN for DRY EYES, (Reported) Jenners 3 Polyunsat Fatty Acids 1,000 Mg Cap, 1,000 MG PO DAILY, (Reported) Pantoprazole Sodium 40 Mg Tablet.dr, 40 MG PO DAILY, (Reported) Polyvinyl Alcohol/Povidone 15 Ml Drops, 1-2 DROPS OU QID PRN for DRY EYES, (Reported) Potassium Chloride 10 Meq Capsule.er, 10 MEQ PO DAILY, (Reported) Physical Exam-Cardiology Physical Exam Vital Signs/I&O Capillary Refill : Less Than 3 Seconds Data Review Labs Laboratory Tests 02/01/19 16:25: Lab Scanned Report Transfusion Reaction Form Microbiology 01/27/19 MRSA Screen - Final, Complete MRSA not isolated Radiology NAME: MARIYA ARMIJO MED REC#: [id number] PT STATUS: REG ER : 1940 PHYSICIAN: JUAN WALLACE MD ADMIT DATE: 01/26/19/ER Signed Date of Exam: 01/26/19 CHEST PA/LAT (2 VIEW) INDICATION: Shortness of breath. COMPARISON: 01/07/2019 FINDINGS: There is cardiomegaly. The mediastinum is unremarkable. There is no pleural effusion, pneumothorax or pneumonia. There is thoracic spondylosis. IMPRESSION: 1. No acute cardiopulmonary abnormality. 2. Cardiomegaly. 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 Zafar Atrial fibrillation. Holter of 06/09/15 showed a fib with a controlled vent response and with isolated PVCs or aberrantly conducted beats PUD - GI bleed in March 2018 and May 2018 requiring multiple transfusions. EGD by Dr. Gamino showed gastric ulcer (PPI tx), this has been treated and is followed by Dr Gamino Left thalamic infarct of unknown age on an MRI scan of 05/09/11. Coronary artery disease primarily involving the LAD artery where she had in- stent stenosis and proximal edge stenosis of a previously placed Taxus 3 x 24mm stent (2005). The proximal two-thirds of the old stent and area proximal to the proximal edge of the old stent was stented with Promus Premier 3 x 20mm stent. this resulted in resolution of stenoses to 0% residual. The distal edge of the old stent and the area just distal to the distal edge of the stent underwent balloon angioplasty with Emerge 2.5 x 15mmballoon with reduction of the stenoses of up to about 70% to less and 30%. The rest of the coronary arteries have mild disease. LVEF 65%. Elevated LVEDP. No significant MR per cardiac cath of July 19, 2014. MPI Of Oct 2017 did not show ischemia or infarction; LVEF was 58% Echocardiogram from Oct 2017 showed LVEF 55-60%, grade 3 diastolic dysfunction. LA mod to mildly dilated. RA mild dilated. AoV thickening, consistent with sclerosis. PASP approx 40-45mmHg Chronic diastolic CHF, last hospitalization with decomp in early Aug 2015 - clincally compensated Mild carotid disease bilat per u/s of Sep 2017 Normal ankle brachial indices in December 2009. Maturity onset diabetes mellitus. Hyperlipidemia being treated with lovastatin. History of hiatal hernia and gastroesophageal reflux. Obesity with a body mass index of 38 Degenerative joint disease. Hypertension, labile, currently well controlled. Chronic anticoagulation for stroke prophylaxis with Pradaxa H/o bilat cataract surg Clinical Quality Measures DVT/VTE Risk/Contraindication: Risk Factor Score Per Nursin RFS Level Per Nursing on Admit: 3=High JACOB PARSONS January 27, 2019 07:53
[2019-01-27] MEDS ORDERED: FAMOTIDINE 20MG/2ML IV (PEPCID) IVP SCH (09:00)
[2019-01-27] MEDS ORDERED: FURO80TA3 PO (09:28)
[2019-01-27] MEDS ORDERED: POTA10CA43 PO (09:28)
--- NOTE | 2019-01-27 10:58 | History & Physical-Hospitalist ---
History of Present Illness HPI/Chief Complaint CC: GIB requiring transfusions HPI: This is a 78yoWF clinic patient of Dr Kyle and Dr Blandon who presented to the ER w/c/o tarry stools and weakness with dyspnea so she called PCP and he told her to report to ER and was found to have hgb 6.4 with hemoccult stools. Patient received 4 units of blood and Dr Blandon and Dr Archer have been consulted to provide their expertise and I have also reached out to her Hemato logist Dr Zafar to see her also. Currently she has no pain but she also has short term memory loss and lives in [address] in [place]. Source: patient Exam Limitations: no limitations Date Seen 01/27/19 Time Seen by a Provider: 10:30 Attending Physician Rory Tran MD PCP Nilton Kyle DO Referring Physician Date of Admission January 26, 2019 at 21:30 Home Medications & Allergies Home Medications Reviewed patient Home Medication Reconciliation performed by pharmacy medication reconciliations trim technician and/or nursing. Patients Allergies have been reviewed. Allergies Allergies Coded Allergies NKANo Known Allergies (Verified Allergy, Unknown, 03/26/06) Past Fsndrzz-Igpydl-Gzpxbj Hx Past Med/Social Hx: Reviewed Nursing Past Med/Soc Hx, Reviewed and Corrections made Patient Social History Marrital Status: single Employed/Student: retired Alcohol Use: Denies Use Recreational Drug Use: No Smoking Status: Former Smoker Former Smoker, Quit: Feb 11, 1985 Type Used: Cigarettes 2nd Hand Smoke Exposure: No Recent Foreign Travel: No Contact w/other who traveled: No Recent Hopitalizations: No Recent Infectious Disease Expo: No Immunizations Up To Date Tetanus Booster (TDap): Unknown Pediatric: No Date of Pneumonia Vaccine: Jul 19, 2011 Date of Influenza Vaccine: Jun 01, 2015 Seasonal Allergies Seasonal Allergies: No Past Medical History Surgeries: Coronary Stent Currently Using CPAP: No Currently Using BIPAP: No Cardiac: Atrial Fibrillation, Cardiomyopathy, Heart Attack, High Cholesterol Neurological: Dementia, Neuropathy 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 : No Reproductive: No Sexually Transmitted Disease: No HIV/AIDS: No Female 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 Menopausal Gastrointestinal: Gastroesophageal Reflux Musculoskeletal: Arthritis Endocrine: Diabetes, Non-Insulin dep HEENT: Cataract Loss of Vision: Denies Hearing Impairment: Denies Psychosocial: Depression History of Blood Disorders: Yes (anemia) Adverse Reaction to Blood [place]: No Family History Reviewed Nursing Family Hx Cardiovascular disease 19 FATHER 19 MOTHER FH: stroke FHx: diabetes mellitus Review of Systems Constitutional: see HPI, malaise, weakness EENTM: no symptoms reported Respiratory: no symptoms reported Cardiovascular: no symptoms reported Gastrointestinal: melena Genitourinary: no symptoms reported Musculoskeletal: no symptoms reported Skin: no symptoms reported Psychiatric/Neurological: No Symptoms Reported All Other Systems Reviewed Negative Unless Noted: Yes Physical Exam Physical Exam Vital Signs Vital Signs - First Documented 01/26/19 18:59 Temp 97.0 Pulse 79 Resp 18 B/P (MAP) 91/38 (55) Pulse Ox 100 O2 Delivery Nasal Cannula O2 Flow Rate 2.00 Capillary Refill : Less Than 3 Seconds Height, Weight, BMI Height: 5'1.50" Weight: 198lbs. 8.0oz. 90.126147sd; 36.9 BMI Method:Stated General Appearance: No Apparent Distress, WD/WN, Chronically ill, Obese Eyes: Right Eye Normal Inspection, Right Eye PERRL HEENT: PERRL/EOMI, Normal ENT Inspection, Pharynx Normal, Moist Mucous Membranes Neck: Full Range of Motion, Normal Inspection, Non Tender Respiratory: Chest Non Tender, Lungs Clear, Normal Breath Sounds, No Accessory Muscle Use, No Respiratory Distress Cardiovascular: No Edema, No Gallop, No JVD, No Murmur, Normal Peripheral Pulses, Irregularly Irregular Gastrointestinal: Normal Bowel Sounds, No Organomegaly, No Pulsatile Mass, Non Tender, Soft Back: Normal Inspection, No CVA Tenderness, No Vertebral Tenderness Extremity: Normal Capillary Refill, Normal Inspection, Normal Range of Motion, Non Tender, No Calf Tenderness, No Pedal Edema Neurologic/Psychiatric: Alert, Oriented x3, No Motor/Sensory Deficits, Normal Mood/Affect, Disoriented Skin: Normal Color, Warm/Dry Lymphatic: No Adenopathy Results Results/Procedures Labs Laboratory Tests 01/26/19 19:08 01/27/19 05:35 Patient resulted labs reviewed. Assessment/Plan Admission Diagnosis Assessment: GI Bleed Elevated BNP Transfusion of 4 units of blood AF Dementia HTN CAD Plan: Monitor creat and hgb Appreciated all consultants Admission Status: Inpatient Order (span 2 midnights) Reason for Inpatient Admission: GIB requiring transfusions Diagnosis/Problems Diagnosis/Problems (1) Gastrointestinal bleed Status: Acute Qualifiers: GI bleed type/associated pathology: melena Qualified Codes: K92.1 - Melena (2) Memory loss or impairment Status: Chronic (3) Severe anemia Status: Acute (4) Atrial fibrillation Status: Chronic Qualifiers: Atrial fibrillation type: chronic Qualified Codes: I48.2 - Chronic atrial fibrillation (5) Ischemic cardiomyopathy Status: Chronic (6) Transfusion of blood during current hospitalisation Status: Acute (7) Cranial nerve VII palsy Status: Chronic (8) Anticoagulant long-term use Status: Chronic (9) GERD (gastroesophageal reflux disease) Status: Chronic Qualifiers: Esophagitis presence: esophagitis presence not specified Qualified Codes: K21.9 - Gastro-esophageal reflux disease without esophagitis (10) CAD (coronary artery disease) Status: Chronic Qualifiers: Coronary Disease-Associated Artery/Lesion type: [place] artery [place] vs. transplanted heart: [place] heart Associated angina: without angina Qualified Codes: I25.10 - Atherosclerotic heart disease of [place] coronary artery without angina pectoris (11) CHF (congestive heart failure) Status: Chronic Qualifiers: Heart failure type: unspecified (12) Black stools Status: Acute (13) Acute blood loss anemia Status: Acute Clinical Quality Measures DVT/VTE Risk/Contraindication: Risk Factor Score Per Nursin RFS Level Per Nursing on Admit: 3=High JENNIFER WASHINGTON DO January 27, 2019 10:58
[2019-01-27] MEDS: PANTOPRAZOLE 40 MG (PROTONIX) VIAL IV SCH ×2 (11:03→20:34)
[2019-01-27] MEDS: FAMOTIDINE 20MG/2ML IV (PEPCID) IVP SCH (11:03)
--- NOTE | 2019-01-27 12:29 | Consultation-Cardiology ---
HPI-Cardiology Cardiology Consultation: Date of Consultation 01/27/19 Time Seen by a Provider: 09:30 Date of Admission Attending Physician Rory Tran MD Admitting Physician Nilton Kyle DO Consulting Physician SINDY WIGGINS MD, MA, FACP, FACC, FSCAI, CCDS HPI: Chief Complaint: Reason for consultation: OAC management after admission with GI bleed HPI 78 yo woman with a few days of increasing weakness and gen malaise and exertional shortness of breath. Had black, tarry stool yesterday. Came to ER. Admitted with GI bleed and severe anemia. Denies cp or palp or syncope. Chronic, intermittent leg swelling. No fever or chills Review of Systems-Cardiology Review of Systems Constitutional: As described under HPI Eyes: No vision change Ears/Nose/Throat: No ear discharge, No nasal drainage, No recent hearing loss Respiratory: As described under HPI Cardiovascular: As described under HPI Gastrointestinal: As described under HPI; No diarrhea, No vomiting Genitourinary: No dysuria, No hematuria, No urine frequency changes : No Musculoskeletal: back pain (chroin), joint pain (chronic) Skin: No rash, No ulcerations Psychiatric/Neurological: other (L-sided facial weakness (chronic)); No focal weakness, No syncope Hematologic: No bleeding abnormalities All Other Systems Reviewed Negative Unless Noted: Yes UGV-Cyfjeb-Rvfuvq Hx Patient Social History Marrital Status: single Employed/Student: retired Alcohol Use: Denies Use Recreational Drug Use: No Smoking Status: Former Smoker Former smoker/When Quit: Jul 19, 1988 Type Used: Cigarettes 2nd Hand Smoke Exposure: No Recent Foreign Travel: No Recent Infectious Disease Expo: No Hospitalization with Isolation: Denies Immunizations Up To Date Tetanus Booster (TDap): Unknown Date of Pneumonia Vaccine: Jul 19, 2011 Date of Influenza Vaccine: Jun 01, 2015 Past Medical History PMH As described under Assessment. Family Medical History Family Medical History: She reports her mother and father both had CAD. Family History: Cardiovascular disease 19 FATHER 19 MOTHER FH: stroke FHx: diabetes mellitus Allergies and Home Medications Allergies Coded Allergies: NKANo Known Allergies (Verified Allergy, Unknown, 03/26/06) Home Medications Amlodipine Besylate 5 Mg Tablet, 5 MG PO DAILY, (Reported) Aspirin 81 Mg Tablet.dr, 81 MG PO DAILY, (Reported) Carvedilol 25 Mg Tablet, 25 MG PO BID, (Reported) Cholecalciferol (Vitamin D3) 1,000 Unit Capsule, 1,000 UNIT PO DAILY, (Reported) Dabigatran Etexilate Mesylate 150 Mg Capsule, 150 MG PO BID, (Reported) Furosemide 80 Mg Tablet, 80 MG PO DAILY, (Reported) Gabapentin 300 Mg Capsule, 300 MG PO 2000,2300, (Reported) Glimepiride 4 Mg Tablet, 4 MG PO BID PRN for BLOOD SUGAR >200, (Reported) Losartan Potassium 100 Mg Tablet, 100 MG PO DAILY, (Reported) Lovastatin 20 Mg Tablet, 20 MG PO HS, (Reported) Metformin HCl 1,000 Mg Tablet, 1,000 MG PO BID, (Reported) Mineral Oil/Petrolatum,White 3.5 Gm Oint...g., OU HS PRN for DRY EYES, (Reported) [place] 3 Polyunsat Fatty Acids 1,000 Mg Cap, 1,000 MG PO DAILY, (Reported) Pantoprazole Sodium 40 Mg Tablet.dr, 40 MG PO DAILY, (Reported) Polyvinyl Alcohol/Povidone 15 Ml Drops, 1-2 DROPS OU QID PRN for DRY EYES, (Reported) Potassium Chloride 10 Meq Capsule.er, 10 MEQ PO DAILY, (Reported) Patient Home Medication List Home Medication List Reviewed: Yes Physical Exam-Cardiology Physical Exam Vital Signs/I&O 01/27/19 01/27/19 01/27/19 01/27/19 00:40 01:00 01:40 02:01 Temp 97.6 97.8 98.0 Pulse 82 70 86 84 Resp 18 18 20 B/P (MAP) 113/59 (77) 106/59 (75) 111/56 Pulse Ox 93 99 99 O2 Delivery Nasal Cannula Nasal Cannula Nasal Cannula O2 Flow Rate 2.00 2.00 2.00 01/27/19 01/27/19 01/27/19 01/27/19 02:40 02:49 03:10 03:40 Temp 98.0 97.8 97.8 97.4 Pulse 84 70 71 82 Resp 18 20 20 17 B/P (MAP) 100/52 (68) 108/53 104/56 107/53 (71) Pulse Ox 96 97 96 98 O2 Delivery Nasal Cannula Nasal Cannula Nasal Cannula Nasal Cannula O2 Flow Rate 2.00 2.00 2.00 2.00 01/27/19 01/27/19 01/27/19 05:20 07:00 08:00 Temp 98.1 96.6 Pulse 75 70 80 Resp 20 20 B/P (MAP) 107/58 99/53 (68) Pulse Ox 98 18 O2 Delivery Nasal Cannula Nasal Cannula O2 Flow Rate 2.00 2.00 01/27/19 00:00 Intake Total 500 ml Balance 500 ml Capillary Refill : Less Than 3 Seconds Constitutional: AAO x 3, well-developed, well-nourished HEENT: PERRL, EOMI, hearing is well preserved; No xanthelasmas are seen Neck: carotid pulses are 2 + bilaterally, with good upstrokes Cardiovascular: regular rate-rhythm, S1 and S2, systolic murmur (soft ROBIN at card base) Gastrointestinal: No tender; soft; No guarding, No rebound; audible bowel sounds Extremities: No clubbing, No cyanosis, No significant edema Neurologic/Psychiatric: other (L-sided facial weakness (chronic)), grossly intact, power is 5/5 both on sides Skin: No rash on exposed areas, No ulcerations on exposed areas Data Review Labs Laboratory Tests 01/26/19 19:08: White Blood Count 10.4, Red Blood Count 2.34L, Hemoglobin 6.4*L, Hematocrit 21L, Mean Corpuscular Volume 92, Mean Corpuscular Hemoglobin 27, Mean Corpuscular Hemoglobin Concent 30L, Red Cell Distribution Width 19.8H, Platelet Count 273, M kenneth Platelet Volume 11.8H, Neutrophils (%) (Auto) 84H, Lymphocytes (%) (Auto) 10L, Monocytes (%) (Auto) 5, Eosinophils (%) (Auto) 1, Basophils (%) (Auto) 1, Neutrophils # (Auto) 8.7H, Lymphocytes # (Auto) 1.1, Monocytes # (Auto) 0.5, Eosinophils # (Auto) 0.1, Basophils # (Auto) 0.1, Prothrombin Time 47.2*H, INR Comment 4.8H, Activated Partial Thromboplast Time 86H, Sodium Level 140, Potassium Level 4.6, Chloride Level 106, Carbon Dioxide Level 22, Anion Gap 12, Blood Urea Nitrogen 80H, Creatinine 1.46H, Estimat Glomerular Filtration Rate 35, BUN/Creatinine Ratio 55, Glucose Level 116H, Calcium Level 9.2, Corrected Calcium 9.5, Magnesium Level 1.7L, Total Bilirubin 0.3, Aspartate Amino Transf (AST/SGOT) 10, Alanine Aminotransferase (ALT/SGPT) 6, Alkaline Phosphatase 34L, B-Type Natriuretic Peptide 415.1H, Total Protein 6.0L, Albumin 3.6 01/27/19 05:15: B-Type Natriuretic Peptide 405.0H 01/27/19 05:35: White Blood Count 9.6, Red Blood Count 3.41L, Hemoglobin 9.6#L, Hematocrit 29L, Mean Corpuscular Volume 86, Mean Corpuscular Hemoglobin 28, Mean Corpuscular Hemoglobin Concent 33, Red Cell Distribution Width 17.9H, Platelet Count 232, Mean Platelet Volume 11.9H, Neutrophils (%) (Auto) 79H, Lymphocytes (%) (Auto) 13, Monocytes (%) (Auto) 7, Eosinophils (%) (Auto) 1, Basophils (%) (Auto) 0, Neutrophils # (Auto) 7.6, Lymphocytes # (Auto) 1.3, Monocytes # (Auto) 0.7, Eosinophils # (Auto) 0.1, Basophils # (Auto) 0.0, Sodium Level 144, Potassium Level 4.3, Chloride Level 108H, Carbon Dioxide Level 24, Anion Gap 12, Blood Ur ea Nitrogen 76H, Creatinine 1.24, Estimat Glomerular Filtration Rate 42, BUN/Creatinine Ratio 61, Glucose Level 112H, Calcium Level 9.0, Corrected Calcium 9.5, Total Bilirubin 0.8, Aspartate Amino Transf (AST/SGOT) 11, Alanine Aminotransferase (ALT/SGPT) 8, Alkaline Phosphatase 32L, Total Protein 5.6L, Albumin 3.4 Laboratory Tests 01/26/19 19:08 01/27/19 05:35 A/P-Cardiology Assessment/Admission Diagnosis GI bleed leading to severe anemia. Prior h/o GI bleed due to PUD (GI bleed in March 2018 and May 2018 requiring multiple transfusions) EGD by Dr. Gamino showed gastric ulcer (PPI tx) Iron deficiency anemia - followed by Dr. Zafar Atrial fibrillation. Holter of 06/09/15 showed a fib with a controlled vent response and with isolated PVCs or aberrantly conducted beats Left thalamic infarct of unknown age on an MRI scan of 05/09/11. 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 The proximal two-thirds of the old stent and area proximal to the proximal edge of the old stent was stented with Promus Premier 3 x 20mm stent. this resulted in resolution of stenoses to 0% residual. The distal edge of the old stent and the area just distal to the distal edge of the stent underwent balloon angioplasty with Emerge 2.5 x 15mmballoon with reduction of the stenoses of up to about 70% to less and 30%. The rest of the coronary arteries have mild disease. LVEF 65%. Elevated LVEDP. No significant MR per cardiac cath of July 19, 2014. MPI Of Oct 2017 did not show ischemia or infarction; LVEF was 58% Echo of Oct 2017 showed LVEF 55-60%, grade 3 diastolic dysfunction. LA mod to mildly dilated. RA mild dilated. AoV thickening, consistent with sclerosis. PASP approx 40-45mmHg Chronic diastolic CHF, last hospitalization with decomp in early Aug 2015 - clincally compensated Mild carotid disease bilat per carotid u/s of Sep 2017 Normal ankle brachial indices in December 2009. Maturity onset diabetes mellitus. Hyperlipidemia being treated with lovastatin. History of hiatal hernia and gastroesophageal reflux. Obesity with a body mass index of 37 Degenerative joint disease. Hypertension, labile, currently well controlled. Chronic anticoagulation for stroke prophylaxis with Pradaxa H/o bilat cataract surg Discussion and Recomendations * This is a complex management issue * Although it is reasonable to hold off on oral anticoag and antiplatelet therapy for now, we recommend a full w/u and treatment of the bleeding source so that OAC and ASA can be resume SHRUTI. Without OAC she remains high risk for thromboembolic CVA, without ASA she remains at significant risk of acute cor syndrome * I discussed these issues with her in detail Clinical Quality Measures DVT/VTE Risk/Contraindication: Risk Factor Score Per Nursin RFS Level Per Nursing on Admit: 3=High SINDY WIGGINS MD FACP [facility] January 27, 2019 12:29
--- NOTE | 2019-01-27 14:00 | Consultation (Surgery) ---
History of Present Illness History of Present Illness Patient Consulted On(nisa/time) 01/27/19 13:54 Time Seen by Provider: 13:24 History of Present Illness Surgery asked to consult regarding GI bleed and anemia, hx of gastric ulcer. HPI per ED: This 78-year-old woman presents to the emergency room with a few days of dyspnea on exertion, dizziness with walking, and black tarry stools. She has also noticed a small amount of red blood when wiping but no red blood in the stool. She presents via EMS from home. EMS reports blood pressure was stable at 114/60. Blood sugar was 153. Oxygen saturation was 93 percent on room air and 99 percent on 3 L by nasal cannula. She does generally wear oxygen at home and has COPD. Patient takes Pradaxa for atrial fibrillation. Her last dose was with her morning meds which were actually taken somewhere around 14:00. Her primary care providers Dr. Kyle. Her rn documentation is Dr. Blandon. When I spoke to pt her main complaint was of being hungry, denies abdominal pain. She states she feels much better than yesterday and can walk today. Denies trouble breathing. Allergies and Home Medications Allergies Coded Allergies: ARSALANANo Known Allergies (Verified Allergy, Unknown, 03/26/06) Home Medications Amlodipine Besylate 5 Mg Tablet, 5 MG PO DAILY, (Reported) Aspirin 81 Mg Tablet.dr, 81 MG PO DAILY, (Reported) Carvedilol 25 Mg Tablet, 25 MG PO BID, (Reported) Cholecalciferol (Vitamin D3) 1,000 Unit Capsule, 1,000 UNIT PO DAILY, (Reported) Dabigatran Etexilate Mesylate 150 Mg Capsule, 150 MG PO BID, (Reported) Furosemide 80 Mg Tablet, 80 MG PO DAILY, (Reported) Gabapentin 300 Mg Capsule, 300 MG PO 2000,2300, (Reported) Glimepiride 4 Mg Tablet, 4 MG PO BID PRN for BLOOD SUGAR >200, (Reported) Losartan Potassium 100 Mg Tablet, 100 MG PO DAILY, (Reported) Lovastatin 20 Mg Tablet, 20 MG PO HS, (Reported) Metformin HCl 1,000 Mg Tablet, 1,000 MG PO BID, (Reported) Mineral Oil/Petrolatum,White 3.5 Gm Oint...g., OU HS PRN for DRY EYES, (Reported) Milo 3 Polyunsat Fatty Acids 1,000 Mg Cap, 1,000 MG PO DAILY, (Reported) Pantoprazole Sodium 40 Mg Tablet.dr, 40 MG PO DAILY, (Reported) Polyvinyl Alcohol/Povidone 15 Ml Drops, 1-2 DROPS OU QID PRN for DRY EYES, (Reported) Potassium Chloride 10 Meq Capsule.er, 10 MEQ PO DAILY, (Reported) Patient Home Medication List Home Medication List Reviewed: Yes Past Iwcvtyn-Pialla-Yhfaeu Hx Patient Social History Alcohol Use: Denies Use Recreational Drug Use: No Smoking Status: Former Smoker Former Smoker, Quit: Feb 11, 1985 Type Used: Cigarettes 2nd Hand Smoke Exposure: No Recent Foreign Travel: No Contact w/Someone Who Travel: No Recent Infectious Disease Expo: No Recent Hopitalizations: No Immunizations Up To Date Tetanus Booster (TDap): Unknown PED Vaccines UTD: No Date of Pneumonia Vaccine: Jul 19, 2011 Date of Influenza Vaccine: Jun 01, 2015 Seasonal Allergies Seasonal Allergies: No Surgeries History of Surgeries: Yes (cyst from breast bone removed, carpal tunnel, cardiac stents) Surgeries: Coronary Stent Respiratory History of Respiratory Disorde: Yes Respiratory Disorders: COPD Cardiovascular History of Cardiac Disorders: Yes Cardiac Disorders: Atrial Fibrillation, Cardiomyopathy, Heart Attack, High Cholesterol Neurological History of Neurological Disord: Yes Neurological Disorders: Dementia, Neuropathy Reproductive System : No Hx Reproductive Disorders: No Sexually Transmitted Disease: No HIV/AIDS: No Female 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 MAINTENANCE History: Menopausal Genitourinary History of Genitourinary Disor: No Gastrointestinal History of Gastrointestinal Di: Yes Gastrointestinal Disorders: Gastroesophageal Reflux Musculoskeletal History of Musculoskeletal Dis: Yes Musculoskeletal Disorders: Arthritis Endocrine History of Endocrine Disorders: Yes Endocrine Disorders: Diabetes, Non-Insulin dep HEENT History of HEENT Disorders: Yes HEENT Disorders: Cataract Loss of Vision: Denies Hearing Impairment: Denies Cancer History of Cancer: No Psychosocial History of Psychiatric Problem: Yes Behavioral Health Disorders: Depression Integumentary History of Skin or Integumenta: No Blood Transfusions History of Blood Disorders: Yes (anemia) Adverse Reaction to a Blood Tr: No Family Medical History Significant Family History: Heart Disease, Diabetes (sister), Hypertension (sis ter) Family Medial History: Cardiovascular disease 19 FATHER 19 MOTHER FH: stroke FHx: diabetes mellitus Review of Systems-General Constitutional: dizziness, malaise, weakness EENTM: blurred vision; No mouth pain, No mouth swelling, No epistaxis, No throat pain, No throat swelling Respiratory: No cough; dyspnea on exertion; No hemoptysis; short of breath; No wheezing Cardiovascular: No chest pain; palpitations, vascular heart diseas Gastrointestinal: No abdominal pain, No constipation, No diarrhea, No jaundice; melena; No nausea, No vomiting Genitourinary: No dysuria, No frequency, No hematuria Musculoskeletal: joint pain, joint swelling, muscle pain, muscle stiffness Skin: No change in color, No change in hair/nails Psychiatric/Neurological: Denies Anxiety; Depressed; Denies Headache, Denies Seizure; Weakness Other pt states she bleeds easily because she is on blood thinners, denies heat or cold intolerance Physical Exam-General Problems Physical Exam Vital Signs Vital Signs - First Documented 01/26/19 18:59 Temp 97.0 Pulse 79 Resp 18 B/P (MAP) 91/38 (55) Pulse Ox 100 O2 Delivery Nasal Cannula O2 Flow Rate 2.00 Capillary Refill : Less Than 3 Seconds General Appearance: WD/WN, mild distress Eyes: Bilateral Eye PERRL (right eye deviates out), Bilateral Eye EOMI HEENT: pharynx normal; No scleral icterus (R), No scleral icterus (L) Neck: non-tender, normal inspection Respiratory: chest non-tender, lungs clear, normal breath sounds, no respira tory distress, no accessory muscle use Cardiovascular: no murmur, irregularly irregular Gastrointestinal: normal bowel sounds, non tender, soft, no organomegaly, no pulsatile mass Back: no CVA tenderness, vertebral tenderness Extremities: no pedal edema, no calf tenderness, normal capillary refill Neurologic/Psychiatric: jigger operator II-XII nml as tested, no motor/sensory deficits, alert, normal mood/affect, oriented x 3 Skin: normal color, warm/dry Lymphatic: no adenopathy (neck, axilla or groin) Data Review Labs Laboratory Tests 01/26/19 19:08: White Blood Count 10.4, Red Blood Count 2.34L, Hemoglobin 6.4*L, Hematocrit 21L, Mean Corpuscular Volume 92, Mean Corpuscular Hemoglobin 27, Mean Corpuscular Hemoglobin Concent 30L, Red Cell Distribution Width 19.8H, Platelet Count 273, Mean Platelet Volume 11.8H, Neutrophils (%) (Auto) 84H, Lymphocytes (%) (Auto) 10L, Monocytes (%) (Auto) 5, Eosinophils (%) (Auto) 1, Basophils (%) (Auto) 1, Neutrophils # (Auto) 8.7H, Lymphocytes # (Auto) 1.1, Monocytes # (Auto) 0.5, Eosinophils # (Auto) 0.1, Basophils # (Auto) 0.1, Prothrombin Time 47.2*H, INR Comment 4.8H, Activated Partial Thromboplast Time 86H, Sodium Level 140, Potassium Level 4.6, Chloride Level 106, Carbon Dioxide Level 22, Anion Gap 12, Blood Urea Nitrogen 80H, Creatinine 1.46H, Estimat Glomerular Filtration Rate 35, BUN/Creatinine Ratio 55, Glucose Level 116H, Calcium Level 9.2, Corrected Ca lcium 9.5, Magnesium Level 1.7L, Total Bilirubin 0.3, Aspartate Amino Transf (AST/SGOT) 10, Alanine Aminotransferase (ALT/SGPT) 6, Alkaline Phosphatase 34L, B-Type Natriuretic Peptide 415.1H, Total Protein 6.0L, Albumin 3.6 01/27/19 05:15: B-Type Natriuretic Peptide 405.0H 01/27/19 05:35: White Blood Count 9.6, Red Blood Count 3.41L, Hemoglobin 9.6#L, Hematocrit 29L, Mean Corpuscular Volume 86, Mean Corpuscular Hemoglobin 28, Mean Corpuscular Hemoglobin Concent 33, Red Cell Distribution Width 17.9H, Platelet Count 232, Mean Platelet Volume 11.9H, Neutrophils (%) (Auto) 79H, Lymphocytes (%) (Auto) 13, Monocytes (%) (Auto) 7, Eosinophils (%) (Auto) 1, Basophils (%) (Auto) 0, Neutrophils # (Auto) 7.6, Lymphocytes # (Auto) 1.3, Monocytes # (Auto) 0.7, Eosinophils # (Auto) 0.1, Basophils # (Auto) 0.0, Sodium Level 144, Potassium Level 4.3, Chloride Level 108H, Carbon Dioxide Level 24, Anion Gap 12, Blood Urea Nitrogen 76H, Creatinine 1.24, Estimat Glomerular Filtration Rate 42, BUN/Creatinine Ratio 61, Glucose Level 112H, Calcium Level 9.0, Corrected Calcium 9.5, Total Bilirubin 0.8, Aspartate Amino Transf (AST/SGOT) 11, Alanine Aminotransferase (ALT/SGPT) 8, Alkaline Phosphatase 32L, Total Protein 5.6L, Albumin 3.4 01/27/19 12:44: Lab Scanned Report Transfusion Reaction Form Assessment/Plan Assessment/Plan Assessment/Plan 1. GI bleed 2. Anemia secondary to #1 3. Atrial Fibrillation with anti-coagulation meds probably causing #1 4. DM, HTN, Cardiomyopathy Pt has had a full work-up previously and all they found was small Gastric Ulcer. At one time she also had H. Pylori; which was Rx medications, but I am unable to determine whether she took them. She denies hematemesis and relates going down to [place] to "swallow camera", but doesn't know what they found. I think she can probably have a normal diet and will make her NPO after midnight for possible EGD tomorrow. EGD will be contigent on her PT/PTT and INR coming back down to normal range. Pt was told all of this and risks and complications discussed; all questions answered to her satisfaction. Clinical Quality Measures DVT/VTE Risk/Contraindication: Risk Factor Score Per Nursin RFS Level Per Nursing on Admit: 3=High WALDEMAR GUZMÁN DO January 27, 2019 13:59
--- NOTE | 2019-01-27 17:09 | CONSULTATION REPORT ---
DATE OF SERVICE: 01/27/2019 The patient is admitted to room 419. PHYSICIAN REQUESTING CONSULTATION: Polly Crump DO. IMPRESSION: 1. A 78-year-old female admitted with symptomatic anemia and 4-day history of melena. 2. Previous history of gastrointestinal bleeding due to peptic ulcer disease with Helicobacter pylori positive and gastric arteriovenous malformations. 3. Status post treatment for Helicobacter pylori infection in late 2017. 4. Iron deficiency with inability to tolerate oral iron, status post parenteral iron therapy in late 2018. 5. History of atrial fibrillation, on prophylactic anticoagulation with Pradaxa and history of coronary artery disease, using aspirin. RECOMMENDATIONS: 1. Agree with PRBC transfusion because of symptomatic anemia. 2. Hold anticoagulation with Pradaxa and aspirin. 3. Agree with surgical evaluation for repeat EGD. 4. Once she is stable, I will arrange for another course of parenteral iron therapy as her ferritin level was gradually dropping even before the current episode of bleeding. 5. We will follow the patient with you. BRIEF HISTORY OF PRESENT ILLNESS: The patient is a 78-year-old female who was brought to the hospital by her sister because of increasing weakness and 4-day history of melena. She was noted to have significant anemia with a hemoglobin level of 6.4 and admitted to the hospital. She has received 4 units of packed red blood cells overnight and is starting to feel better. She has previous history of iron deficiency anemia requiring hospitalization in 05/2018. Workup including an EGD and colonoscopy at that time showed evidence of gastritis and small peptic ulcers. Gastric biopsy was positive for H. pylori and the patient was treated with antibiotic therapy on an outpatient basis. She has history of coronary artery disease requiring stent placements in the past as well as atrial fibrillation. She is on chronic anticoagulation with Pradaxa as well as aspirin. She has intolerance to oral iron preparations and received parenteral iron therapy in lateMay/ early June 2018. She has been on surveillance with declining ferritin level. [facility]2019 at which time the hemoglobin was 11.3 and ferritin level in the 46 range on 01/09/2019. 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 Left facial palsy diagnosed in 2014, probably related to a viral infection. Diabetes mellitus type 2 and hyperlipidemia. Obesity, hypertension and degenerative joint disease. SOCIAL HISTORY: The patient is and lives alone in [place], [place]. She is currently living in a low income housing for seniors. Her sister lives close by and is her primary caregiver. She has three sons, all of whom live out of state in [place], [place] and [place]. The patient does have contact with them by phone but they have not visited for several years. She has [id number] history of tobacco use, but quit smoking in 1984. No history of alcohol or other recreational drug use. FAMILY HISTORY: Significant for lung cancer in her brother and an unknown malignancy in maternal grandfather. Three is significant coronary artery disease and diabetes mellitus in her family including both parents and several uncles and aunts on either side of the family. PHYSICAL EXAMINATION: GENERAL: Today showed an elderly female, moderately obese, awake and oriented, in no acute distress. VITAL SIGNS: Temperature was 97.2, pulse rate of 91, respirations 18, and blood pressure 97/47 with oxygen saturation 99% on 2 liters of oxygen by nasal cannula. HEENT: Normocephalic, extraocular muscles intact, conjunctivae pale, oral mucosa moist. NECK: Supple with no JVD. No cervical, supraclavicular or axillary lymphadenopathy palpable. CHEST: Symmetrical. Lungs with slightly diminished breath sounds bilaterally without any wheezes or rales. HEART: Irregular with controlled rate. Grade II systolic murmur was heard. ABDOMEN: Obese, soft, nontender with no hepatosplenomegaly or other masses palpable. EXTREMITIES: Showed no edema. NEUROLOGIC: Grossly intact without focal motor deficits. LABORATORY DATA: CBC done last evening at the time of admission showed WBC 10.4, hemoglobin 6.4 with MCV 92, RDW 19.8 and platelet count 273,000. Neutrophil count was 8.7 and lymphocyte count 1.1. Repeat CBC done today morning after transfusion showed hemoglobin level of 9.6. Chemistry panel done yesterday at the time of admission showed normal electrolytes. BUN was elevated at 80 and creatinine 1.46 with GFR 35 mL per minute. Liver function studies were within normal limits. BNP was minimally elevated at 415.1. Previous ferritin level from 01/07/2019 was 43.8. Thank you for allowing me to participate in this patient's care. I will follow the patient with you and make appropriate recommendations. Job ID: [id number] DocumentID: [id number] Dictated Date: 01/27/2019 16:00:21 Support Merchandiser Date: 01/27/2019 17:08:39 Dictated By: LUCIANA GERARDO MD MTDD
[2019-01-28] VITALS: BP 109/52
[2019-01-28 04:00] VITALS: BP 106/53
[2019-01-28 06:02] LABS: BASOPHILS % (AUTO) 0 % (0-10); EOSINOPHILS # (AUTO) 0.1 10^3/uL (0.0-0.3); EOSINOPHILS % (AUTO) 1 % (0-10); HEMATOCRIT 27 % (35-52); HEMOGLOBIN 8.7 G/DL (11.5-16.0); LYMPHOCYTES % (AUTO) 11 % (12-44); MEAN CORPUSCULAR HEMOGLOBIN 29 PG (25-34); MEAN CORPUSCULAR HGB CONC 33 G/DL (32-36); MEAN CORPUSCULAR VOLUME 87 FL (80-99); MEAN PLATELET VOLUME 11.5 FL (7.4-10.4); MONOCYTES # (AUTO) 0.7 X 10^3 (0.0-1.0); MONOCYTES % (AUTO) 7 % (0-12); NEUTROPHILS # (AUTO) 7.6 X 10^3 (1.8-7.8); NEUTROPHILS % (AUTO) 81 % (42-75); PLATELET COUNT 244 10^3/uL (130-400); RED CELL DISTRIBUTION WIDTH 17.8 % (10.0-14.5); WHITE BLOOD COUNT 9.4 10^3/uL (4.3-11.0)
[2019-01-28 06:12] LABS: INR 1.7 (0.8-1.4); PROTHROMBIN TIME PATIENT 20.6 SEC (12.2-14.7)
[2019-01-28 06:20] LABS: ALBUMIN 3.3 GM/DL (3.2-4.5); BILIRUBIN,TOTAL 0.4 MG/DL (0.1-1.0); CALCIUM 8.9 MG/DL (8.5-10.1); CREATININE SERUM 1.04 MG/DL (0.60-1.30); TOTAL PROTEIN 5.4 GM/DL (6.4-8.2)
[2019-01-28 08:07] VITALS: BP 91/53
--- NOTE | 2019-01-28 09:03 | Progress Note-Cardiology ---
Cardiology SOAP Progress Note Subjective: Notes gen malaise and weakness, progressive from the time when I saw her yesterday No cp or palp or syncope Shortness of breath with mild to mod exertiona Has had black, tarry stools in the hosp Objective: I&O/Vital Signs 01/28/19 01/28/19 01/28/19 01/28/19 00:00 01:00 04:00 07:00 Temp 98.6 97.8 Pulse 90 109 82 86 Resp 18 16 B/P (MAP) 109/52 (71) 106/53 (70) Pulse Ox 97 100 O2 Delivery Nasal Cannula Nasal Cannula O2 Flow Rate 2.00 2.00 01/28/19 08:07 Temp 98.8 Pulse 90 Resp 24 B/P (MAP) 91/53 (66) Pulse Ox 98 O2 Delivery Nasal Cannula O2 Flow Rate 2.00 01/28/19 00:00 Intake Total 950 ml Output Total 700 ml Balance 250 ml Weight (Pounds): 198 Weight (Ounces): 8.0 Weight (Calculated Kilograms): 90.560892 Constitutional: AAO x 3, well-developed, well-nourished Cardiovascular: regular rate-rhythm, S1 and S2, systolic murmur (soft ROBIN at card base) Gastrointestional: No tender; soft; No guarding, No rebound; audible bowel sounds Extremities: No clubbing, No cyanosis, No significant edema Neurologic/Psychiatric: other (L-sided facial weakness (chronic)), grossly intact, power is 5/5 both on sides Skin: No rash on exposed areas, No ulcerations on exposed areas Results/Procedures: Labs Laboratory Tests 01/27/19 12:44: Lab Scanned Report Transfusion Reaction Form 01/28/19 05:30: White Blood Count 9.4, Red Blood Count 3.05L, Hemoglobin 8.7L, Hematocrit 27L, Mean Corpuscular Volume 87, Mean Corpuscular Hemoglobin 29, Mean Corpuscular Hemoglobin Concent 33, Red Cell Distribution Width 17.8H, Platelet Count 244, Mean Platelet Volume 11.5H, Neutrophils (%) (Auto) 81H, Lymphocytes (%) (Auto) 11L, Monocytes (%) (Auto) 7, Eosinophils (%) (Auto) 1, Basophils (%) (Auto) 0, Neutrophils # (Auto) 7.6, Lymphocytes # (Auto) 1.0, Monocytes # (Auto) 0.7, Eosinophils # (Auto) 0.1, Basophils # (Auto) 0.0, Prothrombin Time 20.6H, INR Comment 1.7H, Activated Partial Thromboplast Time 48H, Sodium Level 143, Potassium Level 4.0, Chloride Level 110H, Carbon Dioxide Level 26, Anion Gap 7, Blood Urea Nitrogen 55H, Creatinine 1.04, Estimat Glomerular Filtration Rate 52, BUN/Creatinine Ratio 53, Glucose Level 151H, Calcium Level 8.9, Corrected Calcium 9.5, Total Bilirubin 0.4, Aspartate Amino Transf (AST/SGOT) 12, Alanine Aminotransferase (ALT/SGPT) 7, Alkaline Phosphatase 36L, Total Protein 5.4L, Albumin 3.3 Laboratory Tests 01/26/19 19:08 01/27/19 05:35 01/28/19 05:30 A/P: Assessment: Ongoing (base don clinical data and falling H/H) GI bleed leading to severe anemia. Prior h/o GI bleed due to PUD (GI bleed in March 2018 and May 2018 requiring multiple transfusions) EGD by Dr. Gamino showed gastric ulcer (PPI tx) Iron deficiency anemia - followed by Dr. Zafar Atrial fibrillation. Holter of 06/09/15 showed a fib with a controlled vent response and with isolated PVCs or aberrantly conducted beats Left thalamic infarct of unknown age on an MRI scan of 05/09/11. 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 The proximal two-thirds of the old stent and area proximal to the proximal edge of the old stent was stented with Promus Premier 3 x 20mm stent. this resulted in resolution of stenoses to 0% residual. The distal edge of the old stent and the area just distal to the distal edge of the stent underwent balloon angioplasty with Emerge 2.5 x 15mmballoon with reduction of the stenoses of up to about 70% to less and 30%. The rest of the coronary arteries have mild disease. LVEF 65%. Elevated LVEDP. No significant MR per cardiac cath of July 19, 2014. MPI Of Oct 2017 did not show ischemia or infarction; LVEF was 58% Echo of Oct 2017 showed LVEF 55-60%, grade 3 diastolic dysfunction. LA mod to mildly dilated. RA mild dilated. AoV thickening, consistent with sclerosis. PASP approx 40-45mmHg Chronic diastolic CHF, last hospitalization with decomp in early Aug 2015 - clincally compensated Mild carotid disease bilat per carotid u/s of Sep 2017 Normal ankle brachial indices in December 2009. Maturity onset diabetes mellitus. Hyperlipidemia being treated with lovastatin. History of hiatal hernia and gastroesophageal reflux. Obesity with a body mass index of 37 Degenerative joint disease. Hypertension, labile, currently well controlled. Chronic anticoagulation for stroke prophylaxis with Pradaxa H/o bilat cataract surg Plan: * This is a complex management issue * Although it is reasonable to hold off on oral anticoag and antiplatelet therapy for now, we recommend a full w/u and treatment of the bleeding source so that OAC and ASA can be resume SHRUTI. Without OAC she remains high risk for thromboembolic CVA, without ASA she remains at significant risk of acute cor syndrome * Appears reasonable to proceed with endoscopy or any necessary surgical intervention from cardiac standpoint * I again discussed these issues with her today SINDY WIGGINS MD FACP FAC CCDS January 28, 2019 09:03
[2019-01-28] MEDS: FAMOTIDINE 20MG/2ML IV (PEPCID) IVP SCH (09:16)
[2019-01-28] MEDS: PANTOPRAZOLE 40 MG (PROTONIX) VIAL IV SCH ×2 (09:16→20:39)
[2019-01-28] MEDS ORDERED: PROPOFOL INJECTION 50 ML IV ONE (09:22)
[2019-01-28] MEDS ORDERED: MIDAZOLAM 2 MG/2 ML (VERSED) VIAL ONE (09:22)
[2019-01-28] MEDS ORDERED: LACTATED RINGERS 1,000 ML IV ONE ×2 (09:34→10:00)
[2019-01-28] MEDS ORDERED: EPINEPHrine INJECTION 1 MG/ML AMP ONE ×2 (09:49→09:54)
[2019-01-28] MEDS ORDERED: EPINEPHrine INJECTION 1 MG/ML AMP IV ONE ×2 (09:56→10:15)
--- NOTE | 2019-01-28 10:00 | Progress Note-Hospitalist ---
Subjective HPI/CC On Admission Date Seen by Provider: January 28, 2019 Time Seen by Provider: 09:00 CC: GIB requiring transfusions HPI: This is a 78yoWF clinic patient of Dr Kyle and Dr Blandon who presented to the ER w/c/o tarry stools and weakness with dyspnea so she called PCP and he told her to report to ER and was found to have hgb 6.4 with hemoccult stools. Patient received 4 units of blood and Dr Blandon and Dr Archer have been consulted to provide their expertise and I have also reached out to her Department Store Door Greeter Dr Zafar to see her also. Currently she has no pain but she also has short term memory loss and lives in [address] in [place]. Subjective/Events-last exam EGD scheduled for today with Dr. Archer Hgb 8.7 after 4 units of blood Appreciate Dr. Zafar consultation along with Dr. Archer and Cardiology Denies any pain Using oxygen but O2 sat is 98% so will take that off Denies any pain with BM and does continue to have tarry stools Off anti coagulation currently After rounds EGD revealed bleeding duodenal ulcer requiring epi injection Review of Systems General: Fatigue Gastrointestinal: Melena Objective Exam Vital Signs Vital Signs Date Time Temp Pulse Resp B/P (MAP) Pulse Ox O2 Delivery O2 Flow Rate FiO2 01/28/19 19:56 98.0 104 18 113/51 (71) 92 Room Air 01/28/19 11:14 0.00 Capillary Refill : Less Than 3 Seconds General Appearance: No Apparent Distress, WD/WN, Chronically ill, Obese HEENT: PERRL/EOMI, Normal ENT Inspection, Pharynx Normal, Moist Mucous Membranes Neck: Full Range of Motion, Normal Inspection, Non Tender Respiratory: Chest Non Tender, Lungs Clear, Normal Breath Sounds, No Accessory Muscle Use, No Respiratory Distress Cardiovascular: No Edema, No Gallop, No JVD, No Murmur, Normal Peripheral Pulses, Irregularly Irregular Gastrointestinal: Normal Bowel Sounds, No Organomegaly, No Pulsatile Mass, Non Tender, Soft Back: Normal Inspection, No CVA Tenderness, No Vertebral Tenderness Extremity: Normal Capillary Refill, Normal Inspection, Normal Range of Motion, Non Tender, No Calf Tenderness, No Pedal Edema Neurologic/Psychiatric: Alert, Oriented x3, No Motor/Sensory Deficits, Normal Mood/Affect, Disoriented Skin: Normal Color, Warm/Dry Lymphatic: No Adenopathy Results/Procedures Lab Laboratory Tests 01/28/19 05:30 Patient resulted labs reviewed. Assessment/Plan Assessment and Plan Assess & Plan/Chief Complaint Assessment: GI Bleed due to bleeding duodenal ulcer requiring epi injection per Dr Archer Elevated BNP Transfusion of 4 units of blood AF Dementia HTN CAD Plan: Monitor creat and hgb Appreciated all consultants Diagnosis/Problems Diagnosis/Problems (1) Gastrointestinal bleed Status: Acute Qualifiers: GI bleed type/associated pathology: duodenal ulcer Qualified Codes: K26.4 - Chronic or unspecified duodenal ulcer with hemorrhage (2) Memory loss or impairment Status: Chronic (3) Severe anemia Status: Acute (4) Atrial fibrillation Status: Chronic Qualifiers: Atrial fibrillation type: chronic Qualified Codes: I48.2 - Chronic atrial fibrillation (5) Ischemic cardiomyopathy Status: Chronic (6) Transfusion of blood during current hospitalisation Status: Acute (7) Cranial nerve VII palsy Status: Chronic (8) Anticoagulant long-term use Status: Chronic (9) GERD (gastroesophageal reflux disease) Status: Chronic Qualifiers: Esophagitis presence: esophagitis presence not specified Qualified Codes: K21.9 - Gastro-esophageal reflux disease without esophagitis (10) CAD (coronary artery disease) Status: Chronic Qualifiers: Coronary Disease-Associated Artery/Lesion type: [place] artery [place] vs. transplanted heart: [place] heart Associated angina: without angina Qualified Codes: I25.10 - Atherosclerotic heart disease of [place] coronary artery without angina pectoris (11) CHF (congestive heart failure) Status: Chronic Qualifiers: Heart failure type: unspecified (12) Black stools Status: Acute (13) Acute blood loss anemia Status: Acute Clinical Quality Measures DVT/VTE Risk/Contraindication: Risk Factor Score Per Nursin RFS Level Per Nursing on Admit: 3=High JENNIFER WASHINGTON DO January 28, 2019 10:00
--- NOTE | 2019-01-28 10:49 | Progress Note-Post Operative ---
Post-Operative Progess Note Surgeon (s)/Radiology Specialist (s) Surgeon WALDEMAR GUZMÁN DO Radiology Specialist: none Pre-Operative Diagnosis GI bleed Post-Operative Diagnosis Bleeding Duodenal Ulcer Procedure & Operative Findings Date of Procedure 01/28/19 Procedure Performed/Findings EGD with injection of epinephrine Anesthesia Type GET Estimated Blood Loss Estimated blood loss (mL): scant Specimens/Packing Specimens Removed none WALDEMAR GUZMÁN DO January 28, 2019 10:49
[2019-01-28 11:14] VITALS: BP 108/52
--- NOTE | 2019-01-28 15:42 | Physical Therapy Evaluation ---
PT Evaluation-General Medical Diagnosis Admission Date January 26, 2019 at 21:30 Medical Diagnosis: GI bleed Onset Date: January 26, 2019 Therapy Diagnosis Therapy Diagnosis: abnormal gait Height/Weight Height (Feet): 5 Height (Inches): 1.50 Weight (Pounds): 198 Weight (Ounces): 8.0 Precautions Precautions/Isolations: Fall Prevention, Standard Precautions Referral Physician: Alisia Reason for Referral: Evaluation/Treatment Medical History Pertinent Medical History: Atrial Fib, Arthritis, CVA, DM, Heart Failure, HTN, CA, Neuropathy Current History Pt admitted with dx of GI Bleed with reports of black tarry stools. Anemia Reviewed History: Yes Social History Home: Apartment Current Living Status: Alone Prior/Core FIM Prior Level of Function Therapy Code Descriptions/Definitions Functional [place] Measure: 0=Not Assessed/NA 4=Minimal Assistance 1=Total Assistance 5=Supervision or Setup 2=Maximal Assistance 6=Modified [place] 3=Moderate Assistance 7=Complete [place] Therapy Quality Codes: 6 Independent with activity with or without an assistive device 5 Patient requires set up or clean up by helper. Patient completes activity by themselves 4 Supervision or touching assist (CGA). Percy provide cues , steadying assist 3 The helper provides less than half the effort to complete the activity 2 The helper provides more than half the effort to complete the activity 1 Dependent. The helper does all the effort to complete an activity 7 Patient refused to complete or attempt activity 9 The patient did not perform the activity before the current illness or injury 88 Not attempted due to Medical conditions or safety concerns Functional Abilities and Goals: Independent: Patient completed the activities by him/herself, with or without an assistive device, with no assistance from a helper. Needed Some Help: Patient needed partial assistance from another person to complete activities. Dependent: A helper completed the activities for the patient. Unknown: Not Applicable: Bed Mobility: 7 Transfers (B,C,W/C) (FIM): 7 Gait: 7 Pt reprots she was indep and still driving at [facility] PT Evaluation-Current Subjective Agrees to PT. Reports she has not eaten much. Objective Patient Orientation: Person, Place, Time, Situation Problem Solving: Good ROM/Strength ROM Lower Extremities WNL Strength Lower Extremities wFl Integumentary/Posture Integumentary INTACT Bowel Incontinence: No Bladder Incontinence: No Posture rounded shoulders with head down. lacks full hip extension in standing. Sensory Vision: Functional Hearing: Functional Hand Dominance: Right Sensation Right Lower Extremit: Intact Sensation Left Lower Extremity: Intact Transfers Therapy Code Descriptions/Definitions Functional [place] Measure: 0=Not Assessed/NA 4=Minimal Assistance 1=Total Assistance 5=Supervision or Setup 2=Maximal Assistance 6=Modified [place] 3=Moderate Assistance 7=Complete [place] Transfers (B, C, W/C) (FIM): 5 Gait Mode of Locomotion: Walk Gait (FIM): 5 Distance (FIM): 3=150 ft Gait Assistive Device: FWW Balance Sitting Static: Good Sitting Dynamic: Good Standing Static: Good Standing Dynamic: Good Treatment Pt walked iwalberta this therapist in the castillo with SBA. She walked into the bathroom and was able to transer onto the toilet with SBA. Pt reported she needed to have a BM so wanted to stay for a while. Assessment/Needs Pt presents with admission due to anemia as a result of a GI bleed. She has not mobilized much since she has been here and would benefit from skilled PT to address functional mobility and strength. Rehab Potential: Good PT Halfway Goals Leach Cell Operator Goals PT Halfway Goals Time Frame: Feb 04, 2019 Transfers (B,C,W/C) (FIM): 7 Gait (FIM): 6 PT Plan Problem List Problem List: Activity Tolerance, Functional Strength, Safety, Balance, Gait, Transfer, Bed Mobility Treatment/Plan Treatment Plan: Continue Plan of Care Treatment Plan: Bed Mobility, Education, Functional Activity Edward, Functional Strength, Gait, Safety, Therapeutic Exercise, Transfers Treatment Duration: Feb 04, 2019 Frequency: 6 times per week Estimated Hrs Per Day: .5 hour per day Patient and/or Family Agrees t: Yes Safety Risks/Education Patient Education: Safety Issues Teaching Recipient: Patient Teaching Methods: Discussion Response to Teaching: Reinforcement Needed Time/GCodes Time In: 1525 Time Out: 1540 Total Billed Treatment Time: 15 Total Billed Treatment visit EVM 15 RYAN BAILEY PT January 28, 2019 15:42
--- NOTE | 2019-01-28 15:52 | OPERATIVE REPORT ---
DATE OF SERVICE: PREOPERATIVE DIAGNOSES: Gastrointestinal bleed, anemia. POSTOPERATIVE DIAGNOSES: 1. Gastrointestinal bleed 2. Anemia. 3. Bleeding duodenal ulcer. SURGEON: David Archer DO EMT DISPATCHER: None. ANESTHESIA: IV sedation by the DIRECTOR OF PHYSIOTHERAPY SERVICES. SPECIMENS: None. BLOOD LOSS: Scant. FLUIDS: Per anesthesia. POSTOPERATIVE CONDITION: Stable. INDICATION FOR PROCEDURE: The patient is a 78-year-old female who came in very weak with hemoglobin of 6.4, I believe. She got transfused some blood. She is on Pradaxa and had to stop this. Today, her INR was 1.7 was 4.8, so [facility]. FINDINGS: The patient had a bleeding duodenal ulcer. Picture taken and lidocaine with epinephrine injected. PROCEDURE NOTE: After informed consent was obtained, the patient was brought to the endoscopy suite, placed in the bed in the supine position. The DIRECTOR OF PHYSIOTHERAPY SERVICES then administered IV sedation and monitored her vitals the entire time, heart rate, blood pressure and pulse ox and inserted the scope down the mouth through the esophagus and into the stomach, saw a little bit of blood in the stomach, but looked around, did not see any ulcers. She had a mild hiatal hernia. Pushed in the duodenum, there was a lot of bleeding in the duodenum, used the pump to flush the duodenum with fluid, went down into the second and third portion of the duodenum and then pulled. While pulling back, saw an actively bleeding ulcer with a black eschar over the top. It was just oozing out bright red blood. Elected to inject this with lidocaine with epinephrine injected around this area, got a good injection of the lidocaine into the subcutaneous tissue around the ulcer and it appeared to stop the bleeding. At this point, I then backed the scope back into the stomach, suctioned out the air and then pulled the scope out of the esophagus and out of the mouth. The patient tolerated procedure. She was recovered in endoscopy. Job ID: [id number] DocumentID: [id number] Dictated Date: 01/28/2019 11:00:22 Distresser Date: 01/28/2019 15:51:44 Dictated By: ADVID ARCHER DO
[2019-01-28 15:53] VITALS: BP 105/64
--- NOTE | 2019-01-28 17:29 | Progress Note ---
Subjective Time Seen by a Provider: 17:01 Subjective/Events-last exam Pt seen and examined, denies abdominal pain and no nausea or vomiting. She did have a BM today that according to nurse was black. Pt's main complaint is of being weak; "I feel bad, cause I'm so weak". This is a change from yesterday when she was feeling better and again she is hungry, wants more than liquids Review of Systems General: Fatigue, Malaise HEENT: Head Aches; No Sore Throat Pulmonary: No Dyspnea, No Cough Cardiovascular: No: Chest Pain, Palpitations Gastrointestinal: Diarrhea; No: Nausea, Vomiting, Abdominal Pain Genitourinary: No Dysuria, No Frequency Neurological: Weakness; No: Change in speech, Confusion Objective Exam Vital Signs Date Time Temp Pulse Resp B/P (MAP) Pulse Ox O2 Delivery O2 Flow Rate FiO2 01/28/19 15:53 97.9 91 20 105/64 (78) 97 Room Air 01/28/19 13:00 98 01/28/19 11:14 98.0 89 20 108/52 (70) 95 Room Air 0.00 01/28/19 10:30 94 16 96 Room Air 01/28/19 10:25 89 20 97 Room Air 01/28/19 10:20 81 20 100 OxyMask 10 01/28/19 10:15 82 20 100 OxyMask 10 01/28/19 10:10 100 20 99 OxyMask 10 01/28/19 10:05 86 16 96 OxyMask 10 01/28/19 10:02 81 16 95 OxyMask 10 01/28/19 08:07 98.8 90 24 91/53 (66) 98 Nasal Cannula 2.00 01/28/19 08:05 Room Air 01/28/19 07:00 86 01/28/19 04:00 97.8 82 16 106/53 (70) 100 Nasal Cannula 2.00 01/28/19 01:00 109 01/28/19 00:00 98.6 90 18 109/52 (71) 97 Nasal Cannula 2.00 01/27/19 20:00 Nasal Cannula 2.00 01/27/19 19:51 98.5 88 20 110/56 (74) 100 Nasal Cannula 2.00 01/27/19 19:00 74 I & O 01/28/19 07:00 Intake Total 1000 ml Output Total 800 ml Balance 200 ml Capillary Refill : Less Than 3 Seconds General Appearance: No Apparent Distress, WD/WN, Chronically ill, Obese HEENT: PERRL/EOMI, Normal ENT Inspection, Pharynx Normal, Moist Mucous Membranes Neck: Full Range of Motion, Normal Inspection, Non Tender Respiratory: Chest Non Tender, Lungs Clear, Normal Breath Sounds, No Accessory Muscle Use, No Respiratory Distress Cardiovascular: No Edema, No Gallop, No JVD, No Murmur, Normal Peripheral Pulses, Irregularly Irregular Gastrointestinal: normal bowel sounds, non tender, soft, no organomegaly, no pulsatile mass Extremity: Normal Capillary Refill, Normal Inspection, Normal Range of Motion, Non Tender, No Calf Tenderness, No Pedal Edema Neurologic/Psychiatric: Alert, Oriented x3, No Motor/Sensory Deficits, Normal Mood/Affect, Disoriented Skin: Normal Color, Warm/Dry Lymphatic: No Adenopathy Results Lab Laboratory Tests 01/28/19 05:30: White Blood Count 9.4, Red Blood Count 3.05L, Hemoglobin 8.7L, Hematocrit 27L, Mean Corpuscular Volume 87, Mean Corpuscular Hemoglobin 29, Mean Corpuscular Hemoglobin Concent 33, Red Cell Distribution Width 17.8H, Platelet Count 244, Mean Platelet Volume 11.5H, Neutrophils (%) (Auto) 81H, Lymphocytes (%) (Auto) 11L, Monocytes (%) (Auto) 7, Eosinophils (%) (Auto) 1, Basophils (%) (Auto) 0, Neutrophils # (Auto) 7.6, Lymphocytes # (Auto) 1.0, Monocytes # (Auto) 0.7, Eosinophils # (Auto) 0.1, Basophils # (Auto) 0.0, Prothrombin Time 20.6H, INR Comment 1.7H, Activated Partial Thromboplast Time 48H, Sodium Level 143, Potassium Level 4.0, Chloride Level 110H, Carbon Dioxide Level 26, Anion Gap 7, Blood Urea Nitrogen 55H, Creatinine 1.04, Estimat Glomerular Filtration Rate 52, BUN/Creatinine Ratio 53, Glucose Level 151H, Calcium Level 8.9, Corrected Calcium 9.5, Total Bilirubin 0.4, Aspartate Amino Transf (AST/SGOT) 12, Alanine Aminotransferase (ALT/SGPT) 7, Alkaline Phosphatase 36L, Total Protein 5.4L, Albumin 3.3 Microbiology 01/27/19 MRSA Screen - Final, Complete MRSA not isolated Assessment/Plan Assessment/Plan Assessment/Plan 1. GI bleed secondary to Bleeding Duodenal ulcer 2. Anemia secondary to #1 3. Atrial Fibrillation with anti-coagulation meds probably causing #1 4. DM, HTN, Cardiomyopathy Pt found to have a Bleeding Duodenal Ulcer during EGD (looked to be 2nd portion of duodenum) and it was injected with Lidocaine w/epinephrine. Did not do biopsy for H. Pylori because no ulcers seen in stomach and her INR is still elevated. I think she can probably have a normal diet and will monitor her labs; CBC and PT/PTT and INR. Will need to stay off anti-coagulation because of ulcer and will start Protonix IV BID. She may need repeat EGD if she CBC trends down again; all questions answered to her satisfaction. Clinical Quality Measures DVT/VTE Risk/Contraindication: Risk Factor Score Per Nursin RFS Level Per Nursing on Admit: 3=High WALDEMAR GUZMÁN DO January 28, 2019 17:29
[2019-01-28 19:56] VITALS: BP 113/51
[2019-01-28] MEDS ORDERED: GABAPENTIN 300 MG (NEURONTIN) CAP PO SCH (23:00)
[2019-01-29] VITALS (10 sets, daily range): BP systolic 106–129; BP diastolic 53–65
[2019-01-29 06:18] LABS: BASOPHILS % (AUTO) 0 % (0-10); EOSINOPHILS # (AUTO) 0.1 10^3/uL (0.0-0.3); EOSINOPHILS % (AUTO) 1 % (0-10); HEMATOCRIT 23 % (35-52); HEMOGLOBIN 7.3 G/DL (11.5-16.0); LYMPHOCYTES % (AUTO) 11 % (12-44); MEAN CORPUSCULAR HEMOGLOBIN 28 PG (25-34); MEAN CORPUSCULAR HGB CONC 32 G/DL (32-36); MEAN CORPUSCULAR VOLUME 89 FL (80-99); MEAN PLATELET VOLUME 11.3 FL (7.4-10.4); MONOCYTES # (AUTO) 0.6 X 10^3 (0.0-1.0); MONOCYTES % (AUTO) 7 % (0-12); NEUTROPHILS % (AUTO) 80 % (42-75); PLATELET COUNT 262 10^3/uL (130-400); RED CELL DISTRIBUTION WIDTH 18.5 % (10.0-14.5); WHITE BLOOD COUNT 8.7 10^3/uL (4.3-11.0)
[2019-01-29 06:42] LABS: ALANINE AMINOTRANSFERASE 7 U/L (0-55); ALBUMIN 3.1 GM/DL (3.2-4.5); ALKALINE PHOSPHATASE 30 U/L (40-136); BILIRUBIN,TOTAL 0.4 MG/DL (0.1-1.0); BUN/CREATININE RATIO 41; CALCIUM 8.7 MG/DL (8.5-10.1); CARBON DIOXIDE 25 MMOL/L (21-32); CHLORIDE 113 MMOL/L (98-107); CREATININE SERUM 0.83 MG/DL (0.60-1.30); GFR ESTIMATED > 60; GLUCOSE 144 MG/DL (70-105); POTASSIUM 3.7 MMOL/L (3.6-5.0); SODIUM 145 MMOL/L (135-145); TOTAL PROTEIN 5.1 GM/DL (6.4-8.2)
--- NOTE | 2019-01-29 07:21 | NUR ---
DR. GUZMÁN NOTIFIED OF HGB 7.3. NO NEW ORDERS AT THIS TIME.
--- NOTE | 2019-01-29 08:54 | Physical Therapy Daily Note ---
PT Daily Note-Current Subjective Patient in bed pre tx, agrees to PT, no complaints of pain. Appearance Patient in bed post tx with nurse call, phone, tray, all needs met. Mental Status Patient Orientation: Person, Place, Situation Transfers Therapy Code Descriptions/Definitions Functional [place] Measure: 0=Not Assessed/NA 4=Minimal Assistance 1=Total Assistance 5=Supervision or Setup 2=Maximal Assistance 6=Modified [place] 3=Moderate Assistance 7=Complete [place] Therapy Quality Codes: 6 Independent with activity with or without an assistive device 5 Patient requires set up or clean up by helper. Patient completes activity by themselves 4 Supervision or touching assist (CGA). Hustle provide cues , steadying assist 3 The helper provides less than half the effort to complete the activity 2 The helper provides more than half the effort to complete the activity 1 Dependent. The helper does all the effort to complete an activity 7 Patient refused to complete or attempt activity 9 The patient did not perform the activity before the current illness or injury 88 Not attempted due to Medical conditions or safety concerns Transfers (B, C, W/C) (FIM): 4 Scootin Rollin Supine to/from Sit: 4 Sit to/from Stand: 5 Bed to/from Chair: 5 min assist for supine <-> sit Gait Training Gait (FIM): 5 Distance: 150' Gait Level of Assist: 5 Gait Persons Needed: 1 Gait Assistive Device: FWW slow but steady ambulation Exercises Supine Ex: Ankle pumps, Heel Slides Supine Reps: 15 Treatments bed mobility and transfers, ,ambulation, LE exercise Assessment Current Status: Fair Progress improving general mobility PT Detention Goals Detention Goals PT Crew Mess Attendant Goals Time Frame: Feb 04, 2019 Transfers (B,C,W/C) (FIM): 7 Gait (FIM): 6 PT Plan Problem List Problem List: Activity Tolerance, Functional Strength, Safety, Balance, Gait, Transfer, Bed Mobility, ROM Treatment/Plan Treatment Plan: Continue Plan of Care Treatment Plan: Bed Mobility, Education, Functional Activity Edward, Functional Strength, Gait, Safety, Therapeutic Exercise, Transfers Treatment Duration: Feb 04, 2019 Frequency: 6 times per week Estimated Hrs Per Day: .5 hour per day Patient and/or Family Agrees t: Yes Safety Risks/Education Patient Education: Gait Training, Transfer Techniques, Correct Positioning, Safety Issues Teaching Recipient: Patient Teaching Methods: Demonstration, Discussion Response to Teaching: Reinforcement Needed Time/GCodes Time In: 0839 Time Out: 0851 Total Billed Treatment Time: 12 Total Billed Treatment 1 visit FA CALVIN MILLER PT January 29, 2019 08:54
[2019-01-29] MEDS ORDERED: PANTOPRAZOLE 40 MG (PROTONIX) TAB PO SCH (09:00)
[2019-01-29] MEDS ORDERED: FAMOTIDINE 20 MG (PEPCID) TABLET PO SCH (09:00)
[2019-01-29] MEDS ORDERED: amLODIPine 5 MG (NORVASC) TAB PO SCH (09:00)
[2019-01-29] MEDS ORDERED: NON-FORMULARY MEDICATION 1 EA EA (Amlodipine Besylate 5 MG) PO SCH (09:00)
--- NOTE | 2019-01-29 09:43 | Progress Note-Cardiology ---
Cardiology SOAP Progress Note Subjective: Sitting up in bed. States she is tired this morning. No c/o CP, palpitations, dyspnea. No c/o n/v. No c/o abdominal discomfort. Objective: I&O/Vital Signs 01/29/19 01/29/19 01/29/19 01/29/19 00:00 04:00 07:06 08:27 Temp 98.7 98.3 97.8 Pulse 87 88 96 87 Resp 18 16 19 B/P (MAP) 106/53 (70) 110/58 (75) 109/55 (73) Pulse Ox 91 93 97 O2 Delivery Room Air Room Air Room Air O2 Flow Rate 0.00 01/29/19 00:00 Intake Total 742 ml Balance 742 ml Weight (Pounds): 198 Weight (Ounces): 8.0 Weight (Calculated Kilograms): 90.514785 Constitutional: AAO x 3, well-developed, well-nourished Cardiovascular: regular rate-rhythm, S1 and S2, systolic murmur (soft ROBIN at card base) Gastrointestional: No tender; soft; No guarding, No rebound; audible bowel soun ds Extremities: No clubbing, No cyanosis, No significant edema Neurologic/Psychiatric: other (L-sided facial weakness (chronic)), grossly intact, power is 5/5 both on sides Skin: No rash on exposed areas, No ulcerations on exposed areas Results/Procedures: Labs Laboratory Tests 01/29/19 05:29: White Blood Count 8.7, Red Blood Count 2.60L, Hemoglobin 7.3L, Hematocrit 23L, Mean Corpuscular Volume 89, Mean Corpuscular Hemoglobin 28, Mean Corpuscular Hemoglobin Concent 32, Red Cell Distribution Width 18.5H, Platelet Count 262, Mean Platelet Volume 11.3H, Neutrophils (%) (Auto) 80H, Lymphocytes (%) (Auto) 11L, Monocytes (%) (Auto) 7, Eosinophils (%) (Auto) 1, Basophils (%) (Auto) 0, Neutrophils # (Auto) 7.0, Lymphocytes # (Auto) 1.0, Monocytes # (Auto) 0.6, Eosinophils # (Auto) 0.1, Basophils # (Auto) 0.0, Sodium Level 145, Potassium Level 3.7, Chloride Level 113H, Carbon Dioxide Level 25, Anion Gap 7, Blood Urea Nitrogen 34H, Creatinine 0.83, Estimat Glomerular Filtration Rate > 60, BUN/Creatinine Ratio 41, Glucose Level 144H, Calcium Level 8.7, Corrected Calcium 9.4, Total Bilirubin 0.4, Aspartate Amino Transf (AST/SGOT) 11, Alanine Aminotransferase (ALT/SGPT) 7, Alkaline Phosphatase 30L, Total Protein 5.1L, Albumin 3.1L Microbiology 01/27/19 MRSA Screen - Final, Complete MRSA not isolated A/P: Assessment: Ongoing (base don clinical data and falling H/H) GI bleed leading to severe anemia. Prior h/o GI bleed due to PUD (GI bleed in March 2018 and May 2018 requiring multiple transfusions) EGD by Dr. Gamino showed gastric ulcer (PPI tx) EGD of 01-28-[address] Archer: bleeding duodenal ulcer in 2nd portion of duodenum, injected with lidocaine w/epinephrine Iron deficiency anemia - followed by Dr. Zafar Atrial fibrillation. Holter of 06/09/15 showed a fib with a controlled vent response and with isolated PVCs or aberrantly conducted beats Left thalamic infarct of unknown age on an MRI scan of 05/09/11. 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 ER on 08/31/15, being followed by Dr Kyle and neurology Coronary artery disease primarily involving the LAD artery where she had in- stent stenosis and proximal edge stenosis of a previously placed Taxus 3 x 24mm stent (2005). The proximal two-thirds of the old stent and area proximal to the proximal edge of the old stent was stented with Promus Premier 3 x 20mm stent. this resulted in resolution of stenoses to 0% residual. The distal edge of the old stent and the area just distal to the distal edge of the stent underwent balloon angioplasty with Emerge 2.5 x 15mmballoon with reduction of the stenoses of up to about 70% to less and 30%. The rest of the coronary arteries have mild disease. LVEF 65%. Elevated LVEDP. No significant MR per cardiac cath of July 19, 2014. MPI Of Oct 2017 did not show ischemia or infarction; LVEF was 58% Echo of Oct 2017 showed LVEF 55-60%, grade 3 diastolic dysfunction. LA mod to mildly dilated. RA mild dilated. AoV thickening, consistent with sclerosis. PASP approx 40-45mmHg Chronic diastolic CHF, last hospitalization with decomp in early Aug 2015 - clincally compensated Mild carotid disease bilat per carotid u/s of Sep 2017 Normal ankle brachial indices in December 2009. Maturity onset diabetes mellitus. Hyperlipidemia being treated with lovastatin. History of hiatal hernia and gastroesophageal reflux. Obesity with a body mass index of 37 Degenerative joint disease. Hypertension, labile, currently well controlled. Chronic anticoagulation for stroke prophylaxis with Pradaxa - currently being held H/o bilat cataract surg Plan: * This is a complex management issue * Although it is reasonable to hold off on oral anticoag and antiplatelet therapy for now, we recommend a full w/u and treatment of the bleeding source so that OAC and ASA can be resume SHRUTI. Without OAC she remains high risk for thromboembolic CVA, without ASA she remains at significant risk of acute cor syndrome * Bleeding Duodenal Ulcer during EGD (looked to be 2nd portion of duodenum) and it was injected with Lidocaine w/epinephrine per Dr. Archer on 01-28-19 * H/H slightly lower than yesterday - continue to monitor - management per surgical/medical services * We have again discussed these issues with her today Physician Assessment Physician Assessment No cp or palp or syncope Gen malaise and weakness and shortness of breath somewhat better Lungs: clear Cor: reg Ext: no c/c. Mild bilat leg swelling A&R * As documented in our note above that I updated (italics) and as noted below * We recommend blood transfusion today * Resume anticoag when duodenal ulcer is thought to be healed * Outpt f/u advised JACOB PARSONS [facility] January 29, 2019 09:43 SINDY WIGGINS MD FACP FAC CCDS January 29, 2019 11:56
[2019-01-29] MEDS ORDERED: FAMO20TA5 PO (10:41)
--- NOTE | 2019-01-29 10:44 | Discharge Summary-Hospitalist ---
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 (8) Anticoagulant long-term use Status: Chronic (9) GERD (gastroesophageal reflux disease) Status: Chronic (10) CAD (coronary artery disease) Status: Chronic (11) CHF (congestive heart failure) Status: Chronic (12) Black stools Status: Acute (13) Acute blood loss anemia Status: Acute Discharge Summary Discharge Physical Exam Allergies: Coded Allergies: NKANo Known Allergies (Verified Allergy, Unknown, 03/26/06) Vitals & I&Os Vital Signs Date Time Temp Pulse Resp B/P (MAP) Pulse Ox O2 Delivery O2 Flow Rate FiO2 01/29/19 08:27 97.8 87 19 109/55 (73) 97 Room Air 0.00 General Appearance: No Apparent Distress, WD/WN, Chronically ill Respiratory: Chest Non Tender, Lungs Clear, Normal Breath Sounds, No Accessory Muscle Use, No Respiratory Distress Cardiovascular: Regular Rate, Rhythm, No Edema, No Gallop, No JVD, No Murmur, Normal Peripheral Pulses Neurologic/Psychiatric: Alert, Oriented x3, No Motor/Sensory Deficits, Normal Mood/Affect Hospital Course Was the Problem List Reviewed?: Yes Hospital course: patient had an uncomplicated hospital course after she was admitted for GIB and given 4 units of blood and Dr Archer was consulted along with Dr Blandon and Dr Zafar. Patient remained stable and was taken off Pradaxa. Patient underwent EGD revealing actively bleeding duodenal ulcer s/p epinephrine injections. Patient require 2 more units of blood the day of DC and she was told to expect melena for a few more days while complete evacuation of old GIB cleared out of her system. Patient was deemed stable to DC in improved condition. Labs (last 24 hrs) Laboratory Tests 01/29/19 05:29: White Blood Count 8.7, Red Blood Count 2.60L, Hemoglobin 7.3L, Hematocrit 23L, Mean Corpuscular Volume 89, Mean Corpuscular Hemoglobin 28, Mean Corpuscular Hemoglobin Concent 32, Red Cell Distribution Width 18.5H, Platelet Count 262, Mean Platelet Volume 11.3H, Neutrophils (%) (Auto) 80H, Lymphocytes (%) (Auto) 11L, Monocytes (%) (Auto) 7, Eosinophils (%) (Auto) 1, Basophils (%) (Auto) 0, Neutrophils # (Auto) 7.0, Lymphocytes # (Auto) 1.0, Monocytes # (Auto) 0.6, Eosinophils # (Auto) 0.1, Basophils # (Auto) 0.0, Sodium Level 145, Potassium Level 3.7, Chloride Level 113H, Carbon Dioxide Level 25, Anion Gap 7, Blood Urea Nitrogen 34H, Creatinine 0.83, Estimat Glomerular Filtration Rate > 60, BUN/Creatinine Ratio 41, Glucose Level 144H, Calcium Level 8.7, Corrected Calcium 9.4, Total Bilirubin 0.4, Aspartate Amino Transf (AST/SGOT) 11, Alanine Aminotransferase (ALT/SGPT) 7, Alkaline Phosphatase 30L, Total Protein 5.1L, Albumin 3.1L Microbiology 01/27/19 MRSA Screen - Final, Complete MRSA not isolated Patient resulted labs reviewed. Pending Labs Laboratory Tests 01/29/19 05:29: White Blood Count 8.7, Red Blood Count 2.60, Hemoglobin 7.3, Hematocrit 23, Mean Corpuscular Volume 89, Mean Corpuscular Hemoglobin 28, Mean Corpuscular Hemoglobin Concent 32, Red Cell Distribution Width 18.5, Platelet Count 262, Mean Platelet Volume 11.3, Neutrophils (%) (Auto) 80, Lymphocytes (%) (Auto) 11, Monocytes (%) (Auto) 7, Eosinophils (%) (Auto) 1, Basophils (%) (Auto) 0, Neutrophils # (Auto) 7.0, Lymphocytes # (Auto) 1.0, Monocytes # (Auto) 0.6, Eosinophils # (Auto) 0.1, Basophils # (Auto) 0.0, Sodium Level 145, Potassium Level 3.7, Chloride Level 113, Carbon Dioxide Level 25, Anion Gap 7, Blood Urea Nitrogen 34, Creatinine 0.83, Estimat Glomerular Filtration Rate > 60, BUN/Creatinine Ratio 41, Glucose Level 144, Calcium Level 8.7, Corrected Calcium 9.4, Total Bilirubin 0.4, Aspartate Amino Transf (AST/SGOT) 11, Alanine Aminotransferase (ALT/SGPT) 7, Alkaline Phosphatase 30, Total Protein 5.1, Albumin 3.1 Discussion & Recommendations Discharge Planning: <30 minutes discharge planning Discharge Home Medications: Active Scripts Active Famotidine 20 Mg Tablet 20 Mg PO DAILY Reported Furosemide 80 Mg Tablet 80 Mg PO DAILY Potassium Chloride 10 Meq Capsule.er 10 Meq PO DAILY Glimepiride 4 Mg Tablet 4 Mg PO BID PRN Pradaxa (Dabigatran Etexilate Mesylate) 150 Mg Capsule 150 Mg PO BID Metformin HCl 1,000 Mg Tablet 1,000 Mg PO BID Refresh Lacri-Lube Ointment (Mineral Oil/Petrolatum,White) 3.5 Gm Oint...g. OU HS PRN Pantoprazole Sodium 40 Mg Tablet.dr 40 Mg PO DAILY Artificial Tears Drops (Polyvinyl Alcohol/Povidone) 15 Ml Drops 1-2 Drops OU QID PRN Fish Oil 1,000 mg Capsule ([place] 3 Polyunsat Fatty Acids) 1,000 Mg Cap 1,000 Mg PO DAILY Vitamin D3 (Cholecalciferol (Vitamin D3)) 1,000 Unit Capsule 1,000 Unit PO DAILY Aspirin EC (Aspirin) 81 Mg Tablet.dr 81 Mg PO DAILY Lovastatin 20 Mg Tablet 20 Mg PO HS Losartan Potassium 100 Mg Tablet 100 Mg PO DAILY Carvedilol 25 Mg Tablet 25 Mg PO BID Amlodipine Besylate 5 Mg Tablet 5 Mg PO DAILY Gabapentin 300 Mg Capsule 300 Mg PO 1999,0 Instructions to patient/family Please see electronic discharge instructions given to patient. Clinical Quality Measures DVT/VTE Risk/Contraindication: Risk Factor Score Per Nursin RFS Level Per Nursing on Admit: 3=High Problem Qualifiers (1) Gastrointestinal bleed: GI bleed type/associated pathology: duodenal ulcer Qualified Codes: K26.4 - Chronic or unspecified duodenal ulcer with hemorrhage (2) Atrial fibrillation: Atrial fibrillation type: chronic Qualified Codes: I48.2 - Chronic atrial fibrillation (3) GERD (gastroesophageal reflux disease): Esophagitis presence: esophagitis presence not specified Qualified Codes: K21.9 - Gastro-esophageal reflux disease without esophagitis (4) CAD (coronary artery disease): Coronary Disease-Associated Artery/Lesion type: [place] artery [place] vs. transplanted heart: [place] heart Associated angina: without angina Qualified Codes: I25.10 - Atherosclerotic heart disease of [place] coronary artery without angina pectoris (5) CHF (congestive heart failure): Heart failure type: unspecified JENNIFER WASHINGTON DO January 29, 2019 10:44
[2019-01-29] MEDS: ACETAMINOPHEN 325 MG TABLET PO PRN ×2 (11:06→16:21)
--- NOTE | 2019-01-29 11:19 | Progress Note ---
Subjective Time Seen by a Provider: 10:57 Subjective/Events-last exam Pt seen and examined, main complain is of being weak and denies abdominal pain. Denies any hematemesis, although still having some black BM's. Review of Systems General: No Chills, No Night Sweats; Fatigue, Malaise Pulmonary: No Dyspnea, No Cough Cardiovascular: Palpitations; No: Chest Pain Gastrointestinal: No: Nausea, Vomiting, Abdominal Pain Objective Exam Vital Signs Date Time Temp Pulse Resp B/P (MAP) Pulse Ox O2 Delivery O2 Flow Rate FiO2 01/29/19 08:27 97.8 87 19 109/55 (73) 97 Room Air 0.00 01/29/19 07:06 96 01/29/19 04:00 98.3 88 16 110/58 (75) 93 Room Air 01/29/19 00:00 98.7 87 18 106/53 (70) 91 Room Air 01/28/19 20:00 Room Air 01/28/19 19:56 98.0 104 18 113/51 (71) 92 Room Air 01/28/19 19:00 96 01/28/19 15:53 97.9 91 20 105/64 (78) 97 Room Air 01/28/19 13:00 98 I & O 01/29/19 07:00 Intake Total 1442 ml Balance 1442 ml Capillary Refill : Less Than 3 Seconds General Appearance: WD/WN, Mild Distress, Obese HEENT: PERRL/EOMI, Pharynx Normal, Moist Mucous Membranes Neck: Non Tender Respiratory: Chest Non Tender, Lungs Clear, Normal Breath Sounds, No Accessory Muscle Use, No Respiratory Distress Cardiovascular: No Edema, No Murmur, Normal Peripheral Pulses, Irregularly Irregular Gastrointestinal: normal bowel sounds, non tender, soft, no organomegaly, no pulsatile mass Extremity: Normal Capillary Refill, Non Tender, No Calf Tenderness, No Pedal Edema Neurologic/Psychiatric: Alert, No Motor/Sensory Deficits, Normal Mood/Affect Skin: Warm/Dry, Pallor Results Lab Laboratory Tests 01/29/19 05:29: White Blood Count 8.7, Red Blood Count 2.60L, Hemoglobin 7.3L, Hematocrit 23L, Mean Corpuscular Volume 89, Mean Corpuscular Hemoglobin 28, Mean Corpuscular Hemoglobin Concent 32, Red Cell Distribution Width 18.5H, Platelet Count 262, Mean Platelet Volume 11.3H, Neutrophils (%) (Auto) 80H, Lymphocytes (%) (Auto) 11L, Monocytes (%) (Auto) 7, Eosinophils (%) (Auto) 1, Basophils (%) (Auto) 0, Neutrophils # (Auto) 7.0, Lymphocytes # (Auto) 1.0, Monocytes # (Auto) 0.6, Eosinophils # (Auto) 0.1, Basophils # (Auto) 0.0, Sodium Level 145, Potassium Level 3.7, Chloride Level 113H, Carbon Dioxide Level 25, Anion Gap 7, Blood Urea Nitrogen 34H, Creatinine 0.83, Estimat Glomerular Filtration Rate > 60, BUN/Creatinine Ratio 41, Glucose Level 144H, Calcium Level 8.7, Corrected Calcium 9.4, Total Bilirubin 0.4, Aspartate Amino Transf (AST/SGOT) 11, Alanine Aminotransferase (ALT/SGPT) 7, Alkaline Phosphatase 30L, Total Protein 5.1L, Albumin 3.1L Microbiology 01/27/19 MRSA Screen - Final, Complete MRSA not isolated Assessment/Plan Assessment/Plan Assessment/Plan 1. GI bleed secondary to Bleeding Duodenal ulcer 2. Anemia secondary to #1 3. Atrial Fibrillation with anti-coagulation meds probably causing #1 4. DM, HTN, Cardiomyopathy Pt's hemoglobin dropped again, but this is probably residual from before the EGD yesterday. She is going to get 2 more units of PRBC's and then be sent home; where her sister is going to check on her routinely. If she feels weak or sees a lot more melanotic stools she may need to get H/H or go emergently to the ER. Luckily the bleeding was very slow, so if it restarts it will hopefully be the same. I would like to see her on Friday to make sure she is doing ok. She may need repeat EGD if she CBC trends down again; all questions answered to her satisfaction. Clinical Quality Measures DVT/VTE Risk/Contraindication: Risk Factor Score Per Nursin RFS Level Per Nursing on Admit: 3=High WALDEMAR GUZMÁN DO January 29, 2019 11:19
--- NOTE | 2019-01-29 11:25 | NUR ---
Important Message from Medicare presented, reviewed, signed and placed in patient chart. Patient voiced no intention to appeal and deny any needs or questions at this time.
[2019-01-29] MEDS ORDERED: NS IV 500 ML 500 ML ONE (11:48)
--- NOTE | 2019-01-29 14:25 | Occupational Therapy Eval ---
OT Evaluation-General/PLF Medical Diagnosis Admission Date January 26, 2019 at 21:30 Medical Diagnosis: GI bleed Onset Date: January 26, 2019 Therapy Diagnosis Therapy Diagnosis: debility Height/Weight Height (Feet): 5 Height (Inches): 1.50 Weight (Pounds): 198 Weight (Ounces): 8.0 Precautions Precautions/Isolations: Fall Prevention, Standard Precautions Safety Interventions: None Referral Physician: Alisia Medical History Pertinent Medical History: Atrial Fib, Arthritis, CVA, DM, Heart Failure, HTN, [place], Neuropathy Additional Medical History cardiomyopathy, high cholesterol, Dewey's Palsy, GERD, depression, anemia Reviewed History: Yes Social History Home: Apartment Current Living Status: Alone ADL-Prior Level of Function Therapy Code Descriptions/Definitions Functional [place] Measure: 0=Not Assessed/NA 4=Minimal Assistance 1=Total Assistance 5=Supervision or Setup 2=Maximal Assistance 6=Modified [place] 3=Moderate Assistance 7=Complete [place] Therapy Quality Codes: 6 Independent with activity with or without an assistive device 5 Patient requires set up or clean up by helper. Patient completes activity by themselves 4 Supervision or touching assist (CGA). [place] provide cues , steadying assist 3 The helper provides less than half the effort to complete the activity 2 The helper provides more than half the effort to complete the activity 1 Dependent. The helper does all the effort to complete an activity 7 Patient refused to complete or attempt activity 9 The patient did not perform the activity before the current illness or injury 88 Not attempted due to Medical conditions or safety concerns Functional Abilities and Goals: Independent: Patient completed the activities by him/herself, with or without an assistive device, with no assistance from a helper. Needed Some Help: Patient needed partial assistance from another person to complete activities. Dependent: A helper completed the activities for the patient. Unknown: Not Applicable: ADL PLOF Comments Pt reports being independent with self care and mobility prior to admission. Used a walker as needed. Self Care: Independent DME/Equipment: Grab Bars, Tub/Shower Drive Self: Yes OT Current Status Subjective Pt sitting in chair, agrees to therapy. Pt reports low back pain rated 4/10. Mental Status/Objective Patient Orientation: Person, Place Current Hand Dominance: Right Upper Extremity ROM Grossly WFL ADL-Treatment ADL-Current Pt sitting in chair combing hair without assist when therapist arrives. Pt states she took a shower this morning after set up from nursing. States she also brushed teeth without assist. Pt demonstrated ability to doff/don socks without assist while sitting in chair. Pt sit to stand with modified independence. Demonstrated ability to transfer to EOB with SBA using FWW. Sit to supine with m odified independence. Pt resting in bed with needs met after session. Therapy Code Descriptions/Definitions Functional [place] Measure: 0=Not Assessed/NA 4=Minimal Assistance 1=Total Assistance 5=Supervision or Setup 2=Maximal Assistance 6=Modified [place] 3=Moderate Assistance 7=Complete [place] Therapy Quality Codes: 6 Independent with activity with or without an assistive device 5 Patient requires set up or clean up by helper. Patient completes activity by themselves 4 Supervision or touching assist (CGA). [place] provide cues , steadying assist 3 The helper provides less than half the effort to complete the activity 2 The helper provides more than half the effort to complete the activity 1 Dependent. The helper does all the effort to complete an activity 7 Patient refused to complete or attempt activity 9 The patient did not perform the activity before the current illness or injury 88 Not attempted due to Medical conditions or safety concerns Eating (FIM): 7 (pt reports feeding self without assist) Grooming (FIM): 6 (Pt mendoza hair without assist, states she has already brushed teeth this morning.) Lower Body Dressing (FIM): 5 (socks only) Education OT Patient Education: Rehab process Teaching Recipient: Patient Teaching Methods: Discussion Response to Teaching: Verbalize Understanding OT Short Term Goals Short Term Goals 1=Demonstrate adherence to instructed precautions during ADL tasks. 2=Patient will verbalize/demonstrate understanding of assistive devices/modifications for ADL. 3=Patient will improve strength/tolerance for activity to enable patient to perform ADL's. OT [employer] Goals Alf Goals Time Frame: Feb 05, 2019 Bathing(FIM): 6 Upper Body Dressing(FIM): 6 Lower Body Dressing(FIM): 6 Toileting(FIM): 6 Toilet/Commode Transfer(FIM): 6 Additional Goals: 2-Verbalize Understanding, 3-ImproveStrength/[place] 1=Demonstrate adherence to instructed precautions during ADL tasks. 2=Patient will verbalize/demonstrate understanding of assistive devices/modifications for ADL. 3=Patient will improve strength/tolerance for activity to enable patient to perform ADL's. OT Education/Plan Problem List/Assessment Assessment: Decreased Activ Tolerance, Decreased UE Strength Pt to benefit from skilled OT intervention for ADL training, transfers, strengthening, and home safety education to increase level of independence and allow safe discharge plan. Discharge Recommendations Plan/Recommendations: Continue POC Treatment Plan/Plan of Care Treatment,Training & Education: Yes Patient would benefit from OT for education, treatment and training to promote independence in ADL's, mobility, safety and/or upper extremity function for ADL' s. Plan of Care: ADL Retraining, Functional Mobility, UE Funct Exercise/Act Treatment Duration: Feb 05, 2019 Frequency: 5 times per week Estimated Hrs Per Day: .25 hour per day Rehab Potential: Good Time/GCodes Start Time: 11:28 Stop Time: 11:50 Total Time Billed (hr/min): 22 Billed Treatment Time 1 visit, VALE(22minutes) ISACC CRISTINA OT January 29, 2019 14:25
--- NOTE | 2019-01-29 15:01 | NUR ---
Pt pleased with plan to discharge home. She continues to complain of weakness but is up on her own with assistance of a Front Wheel walker which she has at home. Pt lives in a senior apt. complex in [place]. Her sister lives in the same comples and will be transporting her home and will be her primary caregiver although pt will be retuning to her apt. on her own. Pt did express interest in Meals On Wheels program and refer her to Meals on Wheels in care of [facility] and did request they start on Friday. No other needs identified.
== END 2019-01-29 18:47 | disposition home or self-care (01) | DRG 378 ==
LOC: EDUNIT# 18:59 → ER 19:00 → 4TH 21:30
PROVIDERS: ADMIT Internal Medicine; ATTEND Internal Medicine
PROC: 0W3P8ZZ Control Bleeding in Gastrointestinal Tract, Via Natural or Artificial Opening Endoscopic (ICD-10-PCS; principal; 2019-01-28 12:30)
DX: K26.4 Chronic or unspecified duodenal ulcer with hemorrhage (principal); D62 Acute posthemorrhagic anemia; I11.0 Hypertensive heart disease with heart failure; I50.32 Chronic diastolic (congestive) heart failure; I25.10 Atherosclerotic heart disease of native coronary artery without angina pectoris; I48.2 Chronic atrial fibrillation; I25.5 Ischemic cardiomyopathy; J44.9 Chronic obstructive pulmonary disease, unspecified; I95.9 Hypotension, unspecified; E78.00 Pure hypercholesterolemia, unspecified; E11.40 Type 2 diabetes mellitus with diabetic neuropathy, unspecified; K21.9 Gastro-esophageal reflux disease without esophagitis; K44.9 Diaphragmatic hernia without obstruction or gangrene; F32.9 Major depressive disorder, single episode, unspecified; M19.91 Primary osteoarthritis, unspecified site; G51.8 Other disorders of facial nerve; F03.90 Unspecified dementia, unspecified severity, without behavioral disturbance, psychotic disturbance, mood disturbance, and anxiety; R41.3 Other amnesia; I49.3 Ventricular premature depolarization; D50.9 Iron deficiency anemia, unspecified; I65.23 Occlusion and stenosis of bilateral carotid arteries; E66.9 Obesity, unspecified; Z68.38 Body mass index [BMI] 38.0-38.9, adult; I25.2 Old myocardial infarction; Z79.84 Long term (current) use of oral hypoglycemic drugs; Z99.81 Dependence on supplemental oxygen; Z95.5 Presence of coronary angioplasty implant and graft; Z86.73 Personal history of transient ischemic attack (TIA), and cerebral infarction without residual deficits; Z87.891 Personal history of nicotine dependence; Z79.01 Long term (current) use of anticoagulants
CPT/HCPCS: 36415; 71046; 80053; 83735; 83880; 85025; 85610; 85730; 86850; 86900; 86901; 86920; 87081; 93005; 93041; 96361; 96374

== ENCOUNTER 2019-02-02 15:00 | Observation (INO) | payer MEDICARE, MEDICAID ==
[2019-02-02] VITALS (10 sets, daily range): BP systolic 93–108; BP diastolic 44–69
[~2019-02-02] VITALS: Ht 156.2 cm; Wt 86.9 kg
[~2019-02-02 15:00] MED LIST changes: -MAGN400T29 PO
--- NOTE | 2019-02-02 15:05 | NUR ---
MARIYA ARMIJO Abhijit admitted to room 407-1, with an admitting diagnosis of ANEMIA, on 02/02/[address] [facility], accompanied by SISTER.MARIYA ARMIJO introduced to surroundings, call light, bed controls, phone, TV, temperature control, lights, meal times, smoking policy, visitor policy, side rail policy, bathrooms and showers. Patient Rights given to patient in the handbook. MARIYA ARMIJO verbalizes understanding that [facility] is not responsible for the loss or damage to any personal effects or valuables that are kept in the patients posession during their hospitalization. MARIYA ARMIJO verbalizes understanding of Interdisciplinary Patient Education. Patient and/or family were informed about the Rapid Response Team and its purpose.
[2019-02-02] MEDS ORDERED: CATHETER FLUSH 10 ML SYR IV PRN (16:00)
[2019-02-02] MEDS ORDERED: NS IV 500 ML 500 ML IV SCH (16:00)
--- NOTE | 2019-02-02 16:24 | NUR ---
SPOKE WITH THE PATIENT ABOUT HER MEDICATIONS. SHE STATES NOTHING HAS CHANGED SINCE SHE WAS DISCHARGED ON FRIDAY. AT THAT DISCHARGE SHE WAS TOLD TO STOP HER PRADAXA AND ASPIRIN WHICH SHE HAS NOT TAKEN SINCE DISCHARGE. SHE WAS STARTED ON PEPCID AND SHE HAS BEEN TAKING THAT EVERY MORNING.
[2019-02-02] MEDS: LACTATED RINGERS 1,000 ML IV SCH (16:52)
--- OUTSIDE RECORDS SUMMARY | 2019-02-02 20:21 | XMS REPORT | Continuity of Care Document ---
Author Organization Unknown Address Unknown Allergies Active Description Code Type Severity Reaction Onset Reported/Identified Relationship to Patient Clinical Status Yes NKANo Known Allergies NKA Miscellaneous Allergy Unknown N/A 01/28/2019 Medications There is no data. Problems Date [...] FACP CCDS Ot 414.01 CORONARY ATHEROSCLEROSIS OF [place] CORON 07/20/2014 SINDY WIGGINS MD, FACC FACP [...] INDEX 40.0-44.9, ADULT 08/09/2014 BAIMA, JACOB L SECURITY ALARM TECHNICIAN Ot 272.4 08/09/2014 BAIMA, JACOB L SECURITY ALARM TECHNICIAN Ot 401.9 08/09/2014 BAIMA, JACOB L SECURITY ALARM TECHNICIAN Ot 427.31 08/09/2014 BAIMA, JACOB L SECURITY ALARM TECHNICIAN Ot 784.0 08/09/2014 BAIMA, JACOB L SECURITY ALARM TECHNICIAN Ot 786.09 08/09/2014 BAIMA, JACOB L SECURITY ALARM TECHNICIAN Ot 786.59 08/19/2014 BAIMA, JACOB L SECURITY ALARM TECHNICIAN Ot 272.4 08/19/2014 BAIMA, JACOB L SECURITY ALARM TECHNICIAN Ot 401.9 08/19/2014 BAIMA, JACOB L SECURITY ALARM TECHNICIAN Ot 427.31 08/19/2014 BAIMA, JACOB L SECURITY ALARM TECHNICIAN Ot 784.0 08/19/2014 BAIMA, JACOB L SECURITY ALARM TECHNICIAN Ot 786.09 08/19/2014 BAIMA, JACOB L SECURITY ALARM TECHNICIAN Ot 786.59 08/22/2014 BAIMA, JACOB L SECURITY ALARM TECHNICIAN Ot 272.4 08/22/2014 BAIMA, JACOB L SECURITY ALARM TECHNICIAN Ot 401.9 08/22/2014 BAIMA, JACOB L SECURITY ALARM TECHNICIAN Ot 427.31 08/22/2014 BAIMA, JACOB L SECURITY ALARM TECHNICIAN Ot 786.09 08/22/2014 BAIMA, JACOB L SECURITY ALARM TECHNICIAN Ot V58.61 09/06/2014 BAIMA, JACOB L SECURITY ALARM TECHNICIAN Ot 272.4 09/06/2014 BAIMA, JACOB L SECURITY ALARM TECHNICIAN Ot 401.9 09/06/2014 BAIMA, JACOB L SECURITY ALARM TECHNICIAN Ot 427.31 09/06/2014 BAIMA, JACOB L SECURITY ALARM TECHNICIAN Ot 786.09 09/06/2014 BAIMA JACOB L SECURITY ALARM TECHNICIAN Ot V58.61 01/03/2015 ELIZABETH MALDONADO DO Ot [...] 06/09/2015 Ot V58.69 06/09/2015 BAIMA, JACOB L SECURITY ALARM TECHNICIAN Ot 272.4 06/09/2015 BAIMA, JACOB L SECURITY ALARM TECHNICIAN Ot 401.9 06/09/2015 BAIMA, JACOB L SECURITY ALARM TECHNICIAN Ot 427.31 06/09/2015 BAIMA, JACOB L SECURITY ALARM TECHNICIAN Ot 786.09 06/09/2015 BAIMA, JACOB L SECURITY ALARM TECHNICIAN Ot V58.61 06/09/2015 BAIMA, JACOB L SECURITY ALARM TECHNICIAN Ot 272.4 06/09/2015 BAIMA, JACOB L SECURITY ALARM TECHNICIAN Ot 401.9 06/09/2015 BAIMA, JACOB L SECURITY ALARM TECHNICIAN Ot 427.31 06/09/2015 BAIMA, JACOB L SECURITY ALARM TECHNICIAN Ot 784.0 06/09/2015 BAIMA, JACOB L SECURITY ALARM TECHNICIAN Ot 786.09 06/09/2015 BAIMA, JACOB L SECURITY ALARM TECHNICIAN Ot 786.59 06/09/2015 ELIZABETH MALDONADO DO Ot [...] ALI FACP CCDS Ot I25.10 07/19/2015 ROSALIE OPWELL FACC, ALI FACP CCDS Ot I48.91 07/19/2015 [...] FAC, ALI FACP CCDS Ot I25.10 07/31/2015 ORSALIE POWELL FAC, ALI FACP CCDS Ot I48.91 07/31/2015 ROSALIE POWELL [facility], ALI FACP CCDS Ot R06.09 08/14/2015 ELIZABETH MALDONADO DO Ot D64.9 ANEMIA, UNSPECIFIED 08/14/2015 ELIZABETH MALDONADO DO Ot 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 08/14/2015 ELIZABETH MALDONADO DO Ot E66.9 OBESITY, UNSPECIFIED 08/14/2015 ELIZABETH MALDONADO DO, Ot E78.5 HYPERLIPIDEMIA, UNSPECIFIED 08/14/2015 ELIZABETH MALDONADO DO Ot I10 ESSENTIAL (PRIMARY) HYPERTENSION 08/14/2015 ELIZABETH MALDONADO DO, Ot I25.10 ATHSCL HEART DISEASE OF [place] CORONARY 08/14/2015 ELIZABETH MALDONADO DO, Ot I27.2 [...] MALDONADO DO Ot R09.02 08/31/2015 ESTELITA RAO MULTI NEEDLE MACHINE OPERATOR Ot 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 08/31/2015 ESTELITA RAO MULTI NEEDLE MACHINE OPERATOR Ot H60.12 CELLULITIS OF LEFT EXTERNAL EAR 09/22/2015 ELIZABETH MALDONADO DO Ot R09.02 11/15/2015 NEELA POWELL, RAHEEL Gastelum Ot H91.90 11/28/2015 NEELA POWELL, RAHEEL Gastelum Ot H91.90 10/21/2017 BAIMA, JACOB L SECURITY ALARM TECHNICIAN Ot 272.4 HYPERLIPIDEMIA NEC/NOS 10/21/2017 BAIMA, JACOB L SECURITY ALARM TECHNICIAN Ot 401.9 HYPERTENSION NOS 10/21/2017 BAIMA, JACOB L SECURITY ALARM TECHNICIAN Ot 427.31 ATRIAL FIBRILLATION 10/21/2017 BAIMA, JACOB L SECURITY ALARM TECHNICIAN Ot 786.09 RESPIRATORY ABNORM NEC 10/21/2017 BAIMA, JACOB L SECURITY ALARM TECHNICIAN Ot V58.61 ANTICOAGULANTS,LT,CURRENT USE 10/21/2017 BAIMA, JACOB L SECURITY ALARM TECHNICIAN Ot 272.4 HYPERLIPIDEMIA NEC/NOS 10/21/2017 BAIMA, JACOB L SECURITY ALARM TECHNICIAN Ot 401.9 HYPERTENSION NOS 10/21/2017 BAIMA, JACOB L SECURITY ALARM TECHNICIAN Ot 427.31 ATRIAL FIBRILLATION 10/21/2017 BAIMA, JACOB L SECURITY ALARM TECHNICIAN Ot 784.0 HEADACHE 10/21/2017 BAIMA, JACOB L SECURITY ALARM TECHNICIAN Ot 786.09 RESPIRATORY ABNORM NEC 10/21/2017 BAIMA, JACOB L SECURITY ALARM TECHNICIAN Ot 786.59 CHEST PAIN NEC 10/21/2017 ELIZABETH MALDONADO DO Ot V45.82 PERCUTANEOUS TRANSLUM CORON ANGIOPLASTY 10/21/2017 ELIZABETH MALDONADO DO Ot V57.89 REHABILITATION PROC NEC 10/21/2017 ROSALIE POWELL FACC, SINDY KNIGHTP CCDS Ot E78.5 HYPERLIPIDEMIA, UNSPECIFIED 10/21/2017 ROSALIE POWELL FACC, ALI FACP CCDS Ot I10 ESSENTIAL (PRIMARY) HYPERTENSION 10/21/2017 ROSALIE POWELL FACC, SINDY FACP CCDS Ot I25.10 ATHSCL HEART DISEASE OF [place] CORONARY 10/21/2017 ROSALIE POWELL FACC, ALI FACP CCDS Ot I48.91 UNSPECIFIED ATRIAL FIBRILLATION 10/21/2017 ROSALIE POWELL FACC, ALI FACP CCDS Ot R06.09 OTHER FORMS OF DYSPNEA 10/21/2017 ROSALIE POWELL FACC, ALI FACP CCDS Ot E78.5 HYPERLIPIDEMIA, UNSPECIFIED 10/21/2017 ROSALIE POWELL FACC, ALI FACP CCDS Ot I10 ESSENTIAL (PRIMARY) HYPERTENSION 10/21/2017 ROSALIE POWELL FACC, ALI FACP CCDS Ot I25.10 ATHSCL HEART DISEASE OF [place] CORONARY 10/21/2017 ROSALIE POWELL FACC, ALI FACP CCDS Ot I48.91 UNSPECIFIED ATRIAL FIBRILLATION 10/21/2017 ROSALIE POWELL FACC, ALI FACP CCDS Ot R06.09 OTHER FORMS OF DYSPNEA 10/21/2017 ERICA GARCIA, ELIZABETH Quintanilla Ot R09.02 HYPOXEMIA 10/21/2017 NEELA POWELL, RAHEEL Gastelum Ot H91.90 UNSPECIFIED HEARING LOSS, UNSPECIFIED EA 10/22/2017 ROSALIE POWLEL FACC, ALI FACP CCDS Ot E78.4 OTHER HYPERLIPIDEMIA 10/22/2017 ROSALIE POWELL FACC, ALI FACP CCDS Ot 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 10/22/2017 ROSALIE POWELL FACC, ALI FACP CCDS Ot I10 ESSENTIAL (PRIMARY) HYPERTENSION 10/22/2017 ROSALIE POWELL FACC, ALI FACP CCDS Ot I25.10 ATHSCL HEART DISEASE OF [place] CORONARY 10/22/2017 ROSALIE POWELL FACC, ALI FACP [...] CCDS Ot I25.10 ATHSCL HEART DISEASE OF [place] CORONARY 11/20/2017 ROSALIE POWELL FAC, ALI FACP [...] MD Ot I25.10 ATHSCL HEART DISEASE OF [place] CORONARY 02/11/2018 LORIE YODER MD Ot I25.2 [...] MD Ot I25.10 ATHSCL HEART DISEASE OF [place] CORONARY 02/11/2018 LORIE YODER MD Ot I25.2 [...] OTHER PREPROCEDURAL EXAMIN 03/09/2018 BAIMA, JACOB L SECURITY ALARM TECHNICIAN Ot 272.4 HYPERLIPIDEMIA NEC/NOS 03/09/2018 BAIMA, JACOB L SECURITY ALARM TECHNICIAN Ot 401.9 HYPERTENSION NOS 03/09/2018 BAIMA, JACOB L SECURITY ALARM TECHNICIAN Ot 427.31 ATRIAL FIBRILLATION 03/09/2018 BAIMA, JACOB L SECURITY ALARM TECHNICIAN Ot 786.09 RESPIRATORY ABNORM NEC 03/09/2018 BAIMA, JACOB L SECURITY ALARM TECHNICIAN Ot V58.61 ANTICOAGULANTS,LT,CURRENT USE 03/09/2018 BAIMA, JACOB L SECURITY ALARM TECHNICIAN Ot 272.4 HYPERLIPIDEMIA NEC/NOS 03/09/2018 BAIMA, JACOB L SECURITY ALARM TECHNICIAN Ot 401.9 HYPERTENSION NOS 03/09/2018 BAIMA, JACOB L SECURITY ALARM TECHNICIAN Ot 427.31 ATRIAL FIBRILLATION 03/09/2018 BAIMA, JACOB L SECURITY ALARM TECHNICIAN Ot 784.0 HEADACHE 03/09/2018 BAIMA, JACOB L SECURITY ALARM TECHNICIAN Ot 786.09 RESPIRATORY ABNORM NEC 03/09/2018 BAIMA, JACOB L SECURITY ALARM TECHNICIAN Ot 786.59 CHEST PAIN NEC 03/09/2018 ELIZABETH MALDONADO DO Ot V45.82 PERCUTANEOUS TRANSLUM CORON ANGIOPLASTY 03/09/2018 ELIZABETH MALDONADO DO Ot V57.89 REHABILITATION PROC NEC 03/09/2018 ROSALIE POWELL FACC, SINDY FACP CCDS Ot E78.5 HYPERLIPIDEMIA, UNSPECIFIED 03/09/2018 ROSALIE POWELL FACC, SINDY FACP CCDS Ot I10 ESSENTIAL (PRIMARY) HYPERTENSION 03/09/2018 ROSALIE POWELL FACC, SINDY FACP CCDS Ot I25.10 ATHSCL HEART DISEASE OF [place] CORONARY 03/09/2018 ROSALIE POWELL FACC, SINDY KNIGHTP CCDS Ot I48.91 UNSPECIFIED ATRIAL FIBRILLATION 03/09/2018 ROSALIE MD FACC, ALI FACP CCDS Ot R06.09 OTHER FORMS OF DYSPNEA 03/09/2018 ROSALIE POWELL FACC, ALI FACP CCDS Ot E78.5 HYPERLIPIDEMIA, UNSPECIFIED 03/09/2018 ROSALIE POWELL FACC, ALI FACP CCDS Ot I10 ESSENTIAL (PRIMARY) HYPERTENSION 03/09/2018 ROSALIE POWELL FACC, ALI FACP CCDS Ot I25.10 ATHSCL HEART DISEASE OF [place] CORONARY 03/09/2018 ROSALIE POWELL FACC, ALI FACP [...] CCDS Ot I25.10 ATHSCL HEART DISEASE OF [place] CORONARY 03/09/2018 ROSALIE POWELL FACC, ALI FACP [...] MELENA 03/09/2018 MANUEL LORD MD Ot Z79.82 SALES TRAINEE (CURRENT) USE OF ASPIRIN 03/09/2018 MANUEL LORD MD Ot Z79.84 JAIL (CURRENT) USE OF ORAL HYPOGLYC 03/09/2018 MANUEL LORD MD Ot Z87.891 PERSONAL HISTORY OF NICOTINE DEPENDENCE 03/09/2018 AMNUEL LORD MD Ot Z95.5 PRESENCE OF CORONARY [...] MELENA 03/11/2018 MANUEL LORD MD Ot Z79.82 SALES TRAINEE (CURRENT) USE OF ASPIRIN 03/11/2018 MANUEL LORD MD Ot Z79.84 JAIL (CURRENT) USE OF ORAL HYPOGLYC 03/11/2018 MANUEL [...] MELENA 03/17/2018 MANUEL LORD MD Ot Z79.82 SALES TRAINEE (CURRENT) USE OF ASPIRIN 03/17/2018 MANUEL LORD MD, Ot Z79.84 JAIL (CURRENT) USE OF ORAL HYPOGLYC 03/17/2018 MANUEL [...] MD, Ot I25.10 ATHSCL HEART DISEASE OF [place] CORONARY 05/26/2018 LORIE YODER MD, Ot I48.91 [...] ADULT 05/26/2018 LORIE YODER MD, Ot Z79.01 JAIL (CURRENT) USE OF ANTICOAGULANT 05/26/2018 LORIE YODER [...] MD Ot I25.10 ATHSCL HEART DISEASE OF [place] CORONARY 05/27/2018 LORIE YODER MD Ot I48.91 [...] ADULT 05/27/2018 LORIE YODER MD Ot Z79.01 SALES TRAINEE (CURRENT) USE OF ANTICOAGULANT 05/27/2018 LORIE YODER [...] MD Ot I25.10 ATHSCL HEART DISEASE OF [place] CORONARY 05/27/2018 LORIE YODER MD Ot I25.2 [...] ADULT 05/27/2018 LORIE YODER MD Ot Z79.01 JAIL (CURRENT) USE OF ANTICOAGULANT 05/27/2018 LORIE YODER MD Ot Z79.84 JAIL (CURRENT) USE OF ORAL HYPOGLYC 05/27/2018 LORIE [...] MD, Ot I25.10 ATHSCL HEART DISEASE OF [place] CORONARY 05/27/2018 LORIE YODER MD, Ot I25.2 [...] ADULT 05/27/2018 LORIE YODER MD, Ot Z79.01 SALES TRAINEE (CURRENT) USE OF ANTICOAGULANT 05/27/2018 LORIE YODER MD, Ot Z79.84 SALES TRAINEE (CURRENT) USE OF ORAL HYPOGLYC 05/27/2018 LORIE [...] MD, Ot I25.10 ATHSCL HEART DISEASE OF [place] CORONARY 05/28/2018 LORIE YODER MD, Ot I25.2 [...] ADULT 05/28/2018 LORIE YODER MD, Ot Z79.01 JAIL (CURRENT) USE OF ANTICOAGULANT 05/28/2018 LORIE YODER MD, Ot Z79.84 JAIL (CURRENT) USE OF ORAL HYPOGLYC 05/28/2018 LORIE [...] MD, Ot I25.10 ATHSCL HEART DISEASE OF [place] CORONARY 05/28/2018 LORIE YODER MD, Ot I25.2 [...] ADULT 05/28/2018 LORIE YODER MD Ot Z79.01 SALES TRAINEE (CURRENT) USE OF ANTICOAGULANT 05/28/2018 LORIE YODER MD, Ot Z79.84 JAIL (CURRENT) USE OF ORAL HYPOGLYC 05/28/2018 LORIE [...] CCDS Ot I25.10 ATHSCL HEART DISEASE OF [place] CORONARY 05/29/2018 ROSALIE KNIGHT, SINDY FACP CCDS [...] D64.9 ANEMIA, UNSPECIFIED 11/04/2018 BAIMA, JACOB L SECURITY ALARM TECHNICIAN Ot 272.4 HYPERLIPIDEMIA NEC/NOS 11/04/2018 BAIMA, JACOB L SECURITY ALARM TECHNICIAN Ot 401.9 HYPERTENSION NOS 11/04/2018 BAIMA, JACOB L SECURITY ALARM TECHNICIAN Ot 427.31 ATRIAL FIBRILLATION 11/04/2018 BAIMA, JACOB L SECURITY ALARM TECHNICIAN Ot 786.09 RESPIRATORY ABNORM NEC 11/04/2018 BAIMA, JACOB L SECURITY ALARM TECHNICIAN Ot V58.61 ANTICOAGULANTS,LT,CURRENT USE 11/04/2018 BAIMA, JACOB L SECURITY ALARM TECHNICIAN Ot 272.4 HYPERLIPIDEMIA NEC/NOS 11/04/2018 BAIMA, JACOB L SECURITY ALARM TECHNICIAN Ot 401.9 HYPERTENSION NOS 11/04/2018 BAIMA, JACOB L SECURITY ALARM TECHNICIAN Ot 427.31 ATRIAL FIBRILLATION 11/04/2018 BAIMA, JACOB L SECURITY ALARM TECHNICIAN Ot 784.0 HEADACHE 11/04/2018 BAIMA, JACOB L SECURITY ALARM TECHNICIAN Ot 786.09 RESPIRATORY ABNORM NEC 11/04/2018 BAIMA, JACOB L SECURITY ALARM TECHNICIAN Ot 786.59 CHEST PAIN NEC 11/04/2018 ELIZABETH MALDONADO DO Ot V45.82 PERCUTANEOUS TRANSLUM CORON ANGIOPLASTY 11/04/2018 ELIZABETH MALDONADO DO Ot V57.89 REHABILITATION PROC NEC 11/04/2018 ROSALIE KNIGHTC, ALI FACP CCDS Ot E78.5 HYPERLIPIDEMIA, UNSPECIFIED 11/04/2018 ROSALIE POWELL FACRolf, ALI FACP CCDS Ot I10 ESSENTIAL (PRIMARY) HYPERTENSION 11/04/2018 ROSALIE POWELL FACC, ALI FACP CCDS Ot I25.10 ATHSCL HEART DISEASE OF [place] CORONARY 11/04/2018 ROSALIE POWELL FACC, ALI FACP CCDS Ot I48.91 UNSPECIFIED ATRIAL FIBRILLATION 11/04/2018 ROSALIE POWELL FACC, ALI FACP CCDS Ot R06.09 OTHER FORMS OF DYSPNEA 11/04/2018 ROSALIE POWELL FACC, ALI FACP CCDS Ot E78.5 HYPERLIPIDEMIA, UNSPECIFIED 11/04/2018 ROSALIE POWELL FACC, ALI FACP CCDS Ot I10 ESSENTIAL (PRIMARY) HYPERTENSION 11/04/2018 ROSALIE KNIGHTC, ALI FACP CCDS Ot I25.10 ATHSCL HEART DISEASE OF [place] CORONARY 11/04/2018 ROSALIE POWELL FACC, ALI FACP [...] CCDS Ot I25.10 ATHSCL HEART DISEASE OF [place] CORONARY 11/04/2018 ROSALIE POWELL FACC, ALI FACP [...] MD, Ot I25.10 ATHSCL HEART DISEASE OF [place] CORONARY 01/08/2019 LORIE YODER MD, Ot I25.5 [...] ADULT 01/08/2019 LORIE YODER MD, Ot Z79.01 JAIL (CURRENT) USE OF ANTICOAGULANT 01/08/2019 LORIE YODER MD, Ot Z79.84 JAIL (CURRENT) USE OF ORAL HYPOGLYC 01/08/2019 LORIE [...] MD, Ot I25.10 ATHSCL HEART DISEASE OF [place] CORONARY 01/10/2019 LORIE YODER MD, Ot I25.5 [...] ADULT 01/10/2019 LORIE YODER MD Ot Z79.01 SALES TRAINEE (CURRENT) USE OF ANTICOAGULANT 01/10/2019 LORIE YODER MD, Ot Z79.84 SALES TRAINEE (CURRENT) USE OF ORAL HYPOGLYC 01/10/2019 LORIE [...] MD, Ot I25.10 ATHSCL HEART DISEASE OF [place] CORONARY 01/10/2019 LORIE YODER MD, Ot I25.5 ISCHEMIC CARDIOMYOPATHY 01/10/2019 LORIE YODER MD, Ot I48.2 CHRONIC ATRIAL FIBRILLATION 01/10/2019 LORIE YODER MD Ot I48.91 UNSPECIFIED ATRIAL FIBRILLATION 01/10/2019 LORIE YODER MD Ot 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 01/10/2019 LORIE YODER MD, Ot I50.33 ACUTE ON CHRONIC DIASTOLIC (CONGESTIVE) 01/10/2019 LORIE YODER MD Ot I65.23 OCCLUSION AND STENOSIS OF BILATERAL [place] 01/10/2019 LORIE YODER MD Ot M19.91 PRIMARY OSTEOARTHRITIS, UNSPECIFIED SITE 01/10/2019 LORIE YODER MD Ot Z68.37 BODY MASS INDEX (BMI) 37.0-37.9, ADULT 01/10/2019 LORIE YODER MD Ot Z79.01 SALES TRAINEE (CURRENT) USE OF ANTICOAGULANT 01/10/2019 LORIE YODER MD Ot Z79.84 JAIL (CURRENT) USE OF ORAL HYPOGLYC 01/10/2019 LORIE YODER MD, Ot 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), AND CEREB INFRC W 01/10/2019 LORIE YODER MD Ot Z87.11 PERSONAL HISTORY OF PEPTIC ULCER DISEASE 01/10/2019 LORIE YODER MD Ot Z87.891 PERSONAL HISTORY OF NICOTINE DEPENDENCE 01/10/2019 LORIE YODER MD Ot Z95.5 PRESENCE OF CORONARY ANGIOPLASTY IMPLANT 01/29/2019 LORIE YODER MD Ot D62 ACUTE POSTHEMORRHAGIC ANEMIA 01/29/2019 LORIE YODER MD Ot E11.40 TYPE 2 DIABETES MELLITUS WITH DIABETIC N 01/29/2019 LORIE YODER MD Ot E66.9 OBESITY, UNSPECIFIED 01/29/2019 LORIE YODER MD Ot E78.00 PURE HYPERCHOLESTEROLEMIA, UNSPECIFIED 01/29/2019 LORIE YODER MD Ot F03.90 UNSPECIFIED DEMENTIA WITHOUT BEHAVIORAL 01/29/2019 LORIE YODER MD Ot F32.9 MAJOR DEPRESSIVE DISORDER, SINGLE EPISOD 01/29/2019 LORIE YODER MD, Ot 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 01/29/2019 LORIE YODER MD, Ot I11.0 HYPERTENSIVE HEART DISEASE WITH HEART FA 01/29/2019 LORIE YODER MD, Ot I25.10 ATHSCL HEART DISEASE OF [place] CORONARY 01/29/2019 LORIE YODER MD, Ot I25.2 OLD MYOCARDIAL INFARCTION 01/29/2019 LORIE YODER MD, Ot I25.5 ISCHEMIC CARDIOMYOPATHY 01/29/2019 LORIE YODER MD, Ot I48.2 CHRONIC ATRIAL FIBRILLATION 01/29/2019 LORIE YODER MD, Ot I49.3 VENTRICULAR PREMATURE DEPOLARIZATION 01/29/2019 LORIE YODER MD, Ot 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 01/29/2019 LORIE YODER MD, Ot I65.23 OCCLUSION AND STENOSIS OF BILATERAL [place] 01/29/2019 LORIE YODER MD, Ot I95.9 HYPOTENSION, UNSPECIFIED 01/29/2019 LORIE YODER MD, Ot J44.9 CHRONIC OBSTRUCTIVE PULMONARY DISEASE, U 01/29/2019 LORIE YODER MD, Ot K21.9 GASTRO-ESOPHAGEAL REFLUX DISEASE WITHOUT 01/29/2019 LORIE YODER MD, Ot K44.9 DIAPHRAGMATIC HERNIA WITHOUT OBSTRUCTION 01/29/2019 LORIE YODER MD, Ot K92.1 MELENA 01/29/2019 LORIE YODER MD Ot M19.91 PRIMARY OSTEOARTHRITIS, UNSPECIFIED SITE 01/29/2019 LORIE YODER MD Ot R41.3 OTHER AMNESIA 01/29/2019 LORIE YODER MD, Ot Z68.38 BODY MASS INDEX (BMI) 38.0-38.9, ADULT 01/29/2019 LORIE YODER MD, Ot Z79.01 SALES TRAINEE (CURRENT) USE OF ANTICOAGULANT 01/29/2019 LORIE YODER MD, Ot Z79.84 SALES TRAINEE (CURRENT) USE OF ORAL HYPOGLYC 01/29/2019 LORIE YODER MD, Ot 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), AND CEREB INFRC W 01/29/2019 LORIE YODER MD, Ot Z87.11 PERSONAL HISTORY OF PEPTIC ULCER DISEASE 01/29/2019 LORIE YODER MD, Ot Z87.891 PERSONAL HISTORY OF NICOTINE DEPENDENCE 01/29/2019 LORIE YODER MD, Ot Z95.5 PRESENCE OF CORONARY ANGIOPLASTY IMPLANT 01/29/2019 LORIE YODER MD, Ot Z99.81 DEPENDENCE ON SUPPLEMENTAL OXYGEN Procedures Code Description Performed By Performed On [id number] DESTRUCTION OF STOMACH, ENDO 05/28/2018 [id number] EXCISION OF STOMACH, PYLORUS, ENDO, DIAG 05/28/2018 [...] 19:23 RED CELLS LEUKO REDUCED AS1 TRANSFUSED 02/10/183 NRG Blood type T Indirect antibody screen panel - 02/10/18 19:23 ABO+Rh group AP NRG Transfusion band number [id number] NRG Blood group antibody screen NEGATIVE NRG Complete [...] ABO+Rh group AP NRG Transfusion band number [id number] NRG Blood group antibody screen NEGATIVE NRG [...] measurement by glucometer (mass/volume) 155 mg/dL 70-110 Complete blood count (CBC) with automated white blood cell (WBC) differential - 01/26/19 19:08 Blood leukocytes automated count (number/volume) 10.4 10*3/uL 4.3-11.0 Blood erythrocytes automated count (number/volume) 2.34 10*6/uL 4.35-5.85 Venous blood hemoglobin measurement (mass/volume) 6.4 g/dL 11.5-16.0 Blood hematocrit (volume fraction) 21 % 35-52 Automated erythrocyte mean corpuscular volume 92 [foz_us] 80-99 Automated erythrocyte mean corpuscular hemoglobin (mass per erythrocyte) 27 pg 25-34 Automated erythrocyte mean corpuscular hemoglobin concentration measurement (mass/volume) 30 g/dL 32-36 Automated erythrocyte distribution width ratio 19.8 % 10.0- 14.5 Automated blood platelet count (count/volume) 273 10*3/uL 130-400 Automated blood platelet mean volume measurement 11.8 [foz_us] 7.4-10.4 Automated blood neutrophils/100 leukocytes 84 % 42-75 Automated blood lymphocytes/100 leukocytes 10 % 12-44 Blood monocytes/100 leukocytes 5 % 0-12 Automated blood eosinophils/100 leukocytes 1 % 0-10 Automated blood basophils/100 leukocytes 1 % 0-10 Blood neutrophils automated count (number/volume) 8.7 10*3 1.8-7.8 Blood lymphocytes automated count (number/volume) 1.1 10*3 1.0-4.0 Blood monocytes automated count (number/volume) 0.5 10*3 0.0- 1.0 Automated eosinophil count 0.1 10*3/uL 0.0-0.3 Automated blood basophil count (count/volume) 0.1 10*3/uL 0.0-0.1 PT panel in platelet poor plasma by coagulation assay - 01/26/19 19:08 Prothrombin time (PT) in platelet poor plasma by coagulation assay 47.2 s 12.2-14.7 INR in platelet poor plasma or blood by coagulation assay 4.8 0.8-1.4 Activated partial thromboplastin time (aPTT) in platelet poor plasma bycoagulation assay - 01/26/19 19:08 Activated partial thromboplastin time (aPTT) in platelet poor plasma bycoagulation assay 86 s 24-35 Comprehensive metabolic panel - 01/26/19 19:08 Serum or plasma sodium measurement (moles/volume) 140 mmol/L 135-145 Serum or plasma potassium measurement (moles/volume) 4.6 mmol/L 3.6-5.0 Serum or plasma chloride measurement (moles/volume) 106 mmol/L 98-107 Carbon dioxide 22 mmol/L 21-32 Serum or plasma anion gap determination (moles/volume) 12 mmol/L 5-14 Serum or plasma urea nitrogen measurement (mass/volume) 80 mg/dL 7-18 Serum or plasma creatinine measurement (mass/volume) 1.46 mg/dL 0.60-1.30 Serum or plasma urea nitrogen/creatinine mass ratio 55 NRG Serum or plasma creatinine measurement with calculation of estimated glomerular filtration rate 35 NRG Serum or plasma glucose measurement (mass/volume) 116 mg/dL 70-105 Serum or plasma calcium measurement (mass/volume) 9.2 mg/dL 8.5-10.1 Serum or plasma total bilirubin measurement (mass/volume) 0.3 mg/dL 0.1-1.0 Serum or plasma alkaline phosphatase measurement (enzymatic activity/volume) 34 U/L 40-136 Serum or plasma aspartate aminotransferase measurement (enzymatic activity/volume) 10 U/L 5-34 Serum or plasma alanine aminotransferase measurement (enzymatic activity/volume) 6 U/L 0-55 Serum or plasma protein measurement (mass/volume) 6.0 g/dL 6.4-8.2 Serum or plasma albumin measurement (mass/volume) 3.6 g/dL 3.2-4.5 CALCIUM CORRECTED 9.5 mg/dL 8.5-10.1 Magnesium - 01/26/19 19:08 Magnesium 1.7 mg/dL 1.8-2.4 Serum or plasma lithium measurement (moles/volume) - 01/26/19 19:08 BNP level 415.1 pg/mL <100.0 RED CELLS LEUKO REDUCED AS1 - 01/26/19 19:25 RED CELLS LEUKO REDUCED AS1 TRANSFUSED 01/26/192035 [facility] Blood type T Indirect antibody screen panel - 01/26/19 19:25 ABO+Rh group AP NRG Transfusion band number [id number] [facility] Blood group antibody screen NEGATIVE NR Serum or plasma lithium measurement (moles/volume) - 01/27/19 05:15 BNP level 405.0 pg/mL <100.0 Complete blood count (CBC) with automated white blood cell (WBC) differential - 01/27/19 05:35 Blood leukocytes automated count (number/volume) 9.6 10*3/uL 4.3-11.0 Blood erythrocytes automated count (number/volume) 3.41 10*6/uL 4.35-5.85 Venous blood hemoglobin measurement (mass/volume) 9.6 g/dL 11.5-16.0 Blood hematocrit (volume fraction) 29 % 35-52 Automated erythrocyte mean corpuscular volume 86 [foz_us] 80-99 Automated erythrocyte mean corpuscular hemoglobin (mass per erythrocyte) 28 pg 25-34 Automated erythrocyte mean corpuscular hemoglobin concentration measurement (mass/volume) 33 g/dL 32-36 Automated erythrocyte distribution width ratio 17.9 % 10.0- 14.5 Automated blood platelet count (count/volume) 232 10*3/uL 130-400 Automated blood platelet mean volume measurement 11.9 [foz_us] 7.4-10.4 Automated blood neutrophils/100 leukocytes 79 % 42-75 Automated blood lymphocytes/100 leukocytes 13 % 12-44 Blood monocytes/100 leukocytes 7 % 0-12 Automated blood eosinophils/100 leukocytes 1 % 0-10 Automated blood basophils/100 leukocytes 0 % 0-10 Blood neutrophils automated count (number/volume) 7.6 10*3 1.8-7.8 Blood lymphocytes automated count (number/volume) 1.3 10*3 1.0-4.0 Blood monocytes automated count (number/volume) 0.7 10*3 0.0- 1.0 Automated eosinophil count 0.1 10*3/uL 0.0-0.3 Automated blood basophil count (count/volume) 0.0 10*3/uL 0.0-0.1 Comprehensive metabolic panel - 01/27/19 05:35 Serum or plasma sodium measurement (moles/volume) 144 mmol/L 135-145 Serum or plasma potassium measurement (moles/volume) 4.3 mmol/L 3.6-5.0 Serum or plasma chloride measurement (moles/volume) 108 mmol/L 98-107 Carbon dioxide 24 mmol/L 21-32 Serum or plasma anion gap determination (moles/volume) 12 mmol/L 5-14 Serum or plasma urea nitrogen measurement (mass/volume) 76 mg/dL 7-18 Serum or plasma creatinine measurement (mass/volume) 1.24 mg/dL 0.60-1.30 Serum or plasma urea nitrogen/creatinine mass ratio 61 NRG Serum or plasma creatinine measurement with calculation of estimated glomerular filtration rate 42 NRG Serum or plasma glucose measurement (mass/volume) 112 mg/dL 70-105 Serum or plasma calcium measurement (mass/volume) 9.0 mg/dL 8.5-10.1 Serum or plasma total bilirubin measurement (mass/volume) 0.8 mg/dL 0.1-1.0 Serum or plasma alkaline phosphatase measurement (enzymatic activity/volume) 32 U/L 40-136 Serum or plasma aspartate aminotransferase measurement (enzymatic activity/volume) 11 U/L 5-34 Serum or plasma alanine aminotransferase measurement (enzymatic activity/volume) 8 U/L 0-55 Serum or plasma protein measurement (mass/volume) 5.6 g/dL 6.4-8.2 Serum or plasma albumin measurement (mass/volume) 3.4 g/dL 3.2-4.5 CALCIUM CORRECTED 9.5 mg/dL 8.5-10.1 Methicillin resistant Staphylococcus aureus (MRSA) screening culture - 01/27/19 16:45 Methicillin resistant Staphylococcus aureus (MRSA) screening culture NEG NRG Complete blood count (CBC) with automated white blood cell (WBC) differential - 01/28/19 05:30 Blood leukocytes automated count (number/volume) 9.4 10*3/uL 4.3-11.0 Blood erythrocytes automated count (number/volume) 3.05 10*6/uL 4.35-5.85 Venous blood hemoglobin measurement (mass/volume) 8.7 g/dL 11.5-16.0 Blood hematocrit (volume fraction) 27 % 35-52 Automated erythrocyte mean corpuscular volume 87 [foz_us] 80-99 Automated erythrocyte mean corpuscular hemoglobin (mass per erythrocyte) 29 pg 25-34 Automated erythrocyte mean corpuscular hemoglobin concentration measurement (mass/volume) 33 g/dL 32-36 Automated erythrocyte distribution width ratio 17.8 % 10.0- 14.5 Automated blood platelet count (count/volume) 244 10*3/uL 130-400 Automated blood platelet mean volume measurement 11.5 [foz_us] 7.4-10.4 Automated blood neutrophils/100 leukocytes 81 % 42-75 Automated blood lymphocytes/100 leukocytes 11 % 12-44 Blood monocytes/100 leukocytes 7 % 0-12 Automated blood eosinophils/100 leukocytes 1 % 0-10 Automated blood basophils/100 leukocytes 0 % 0-10 Blood neutrophils automated count (number/volume) 7.6 10*3 1.8-7.8 Blood lymphocytes automated count (number/volume) 1.0 10*3 1.0-4.0 Blood monocytes automated count (number/volume) 0.7 10*3 0.0- 1.0 Automated eosinophil count 0.1 10*3/uL 0.0-0.3 Automated blood basophil count (count/volume) 0.0 10*3/uL 0.0-0.1 PT panel in platelet poor plasma by coagulation assay - 01/28/19 05:30 Prothrombin time (PT) in platelet poor plasma by coagulation assay 20.6 s 12.2-14.7 INR in platelet poor plasma or blood by coagulation assay 1.7 0.8-1.4 Activated partial thromboplastin time (aPTT) in platelet poor plasma bycoagulation assay - 01/28/19 05:30 Activated partial thromboplastin time (aPTT) in platelet poor plasma bycoagulation assay 48 s 24-35 Comprehensive metabolic panel - 01/28/19 05:30 Serum or plasma sodium measurement (moles/volume) 143 mmol/L 135-145 Serum or plasma potassium measurement (moles/volume) 4.0 mmol/L 3.6-5.0 Serum or plasma chloride measurement (moles/volume) 110 mmol/L 98-107 Carbon dioxide 26 mmol/L 21-32 Serum or plasma anion gap determination (moles/volume) 7 mmol/L 5-14 Serum or plasma urea nitrogen measurement (mass/volume) 55 mg/dL 7-18 Serum or plasma creatinine measurement (mass/volume) 1.04 mg/dL 0.60-1.30 Serum or plasma urea nitrogen/creatinine mass ratio 53 NRG Serum or plasma creatinine measurement with calculation of estimated glomerular filtration rate 52 NRG Serum or plasma glucose measurement (mass/volume) 151 mg/dL 70-105 Serum or plasma calcium measurement (mass/volume) 8.9 mg/dL 8.5-10.1 Serum or plasma total bilirubin measurement (mass/volume) 0.4 mg/dL 0.1-1.0 Serum or plasma alkaline phosphatase measurement (enzymatic activity/volume) 36 U/L 40-136 Serum or plasma aspartate aminotransferase measurement (enzymatic activity/volume) 12 U/L 5-34 Serum or plasma alanine aminotransferase measurement (enzymatic activity/volume) 7 U/L 0-55 Serum or plasma protein measurement (mass/volume) 5.4 g/dL 6.4-8.2 Serum or plasma albumin measurement (mass/volume) 3.3 g/dL 3.2-4.5 CALCIUM CORRECTED 9.5 mg/dL 8.5-10.1 Complete blood count (CBC) with automated white blood cell (WBC) differential - 01/29/19 05:29 Blood leukocytes automated count (number/volume) 8.7 10*3/uL 4.3-11.0 Blood erythrocytes automated count (number/volume) 2.60 10*6/uL 4.35-5.85 Venous blood hemoglobin measurement (mass/volume) 7.3 g/dL 11.5-16.0 Blood hematocrit (volume fraction) 23 % 35-52 Automated erythrocyte mean corpuscular volume 89 [foz_us] 80-99 Automated erythrocyte mean corpuscular hemoglobin (mass per erythrocyte) 28 pg 25-34 Automated erythrocyte mean corpuscular hemoglobin concentration measurement (mass/volume) 32 g/dL 32-36 Automated erythrocyte distribution width ratio 18.5 % 10.0- 14.5 Automated blood platelet count (count/volume) 262 10*3/uL 130-400 Automated blood platelet mean volume measurement 11.3 [foz_us] 7.4-10.4 Automated blood neutrophils/100 leukocytes 80 % 42-75 Automated blood lymphocytes/100 leukocytes 11 % 12-44 Blood monocytes/100 leukocytes 7 % 0-12 Automated blood eosinophils/100 leukocytes 1 % 0-10 Automated blood basophils/100 leukocytes 0 % 0-10 Blood neutrophils automated count (number/volume) 7.0 10*3 1.8-7.8 Blood lymphocytes automated count (number/volume) 1.0 10*3 1.0-4.0 Blood monocytes automated count (number/volume) 0.6 10*3 0.0- 1.0 Automated eosinophil count 0.1 10*3/uL 0.0-0.3 Automated blood basophil count (count/volume) 0.0 10*3/uL 0.0-0.1 Comprehensive metabolic panel - 01/29/19 05:29 Serum or plasma sodium measurement (moles/volume) 145 mmol/L 135-145 Serum or plasma potassium measurement (moles/volume) 3.7 mmol/L 3.6-5.0 Serum or plasma chloride measurement (moles/volume) 113 mmol/L 98-107 Carbon dioxide 25 mmol/L 21-32 Serum or plasma anion gap determination (moles/volume) 7 mmol/L 5-14 Serum or plasma urea nitrogen measurement (mass/volume) 34 mg/dL 7-18 Serum or plasma creatinine measurement (mass/volume) 0.83 mg/dL 0.60-1.30 Serum or plasma urea nitrogen/creatinine mass ratio 41 NRG Serum or plasma creatinine measurement with calculation of estimated glomerular filtration rate > NRG Serum or plasma glucose measurement (mass/volume) 144 mg/dL 70-105 Serum or plasma calcium measurement (mass/volume) 8.7 mg/dL 8.5-10.1 Serum or plasma total bilirubin measurement (mass/volume) 0.4 mg/dL 0.1-1.0 Serum or plasma alkaline phosphatase measurement (enzymatic activity/volume) 30 U/L 40-136 Serum or plasma aspartate aminotransferase measurement (enzymatic activity/volume) 11 U/L 5-34 Serum or plasma alanine aminotransferase measurement (enzymatic activity/volume) 7 U/L 0-55 Serum or plasma protein measurement (mass/volume) 5.1 g/dL 6.4-8.2 Serum or plasma albumin measurement (mass/volume) 3.1 g/dL 3.2-4.5 CALCIUM CORRECTED 9.4 mg/dL 8.5-10.1 RED CELLS LEUKO REDUCED AS1 - 02/02/19 15:55 RED CELLS LEUKO REDUCED AS1 ISSUED 02/02/19 1708 NRG Blood type T Indirect antibody screen panel - 02/02/19 15:55 ABO+Rh group AP NRG Transfusion band number [id number] NRG Blood group antibody screen NEGATIVE NRG Encounters ACCT No. Visit Date/Time Discharge Status Pt. Type Provider Facility Loc./Unit Complaint [id number] 01/26/2019 21:30:00 01/29/2019 18:47:00 DIS Inpatient LORIE YODER MD [facility] 4TH GI BLEED,SEVERE ANEMIA [id number] 01/12/2019 13:22:00 01/12/2019 23:59:59 CLS Outpatient LUCIANA GERARDO [facility] ONC [id number] 01/07/2019 16:20:00 01/10/2019 13:40:00 DIS Outpatient LORIE YODER MD [facility] 4TH CHF,HYPOXIA [id number] 11/16/2018 13:43:00 12/30/2018 00:01:00 DIS Outpatient LUCIANA GERARDO [facility] ONC [id number] 07/07/2018 14:49:00 08/30/2018 00:01:00 DIS Outpatient LUCIANA GERARDO [facility] ONC [id number] 05/29/2018 13:54:00 05/31/2018 00:01:00 DIS Outpatient LUCIANA GERARDO [facility] ONC [id number] 05/25/2018 16:21:00 05/28/2018 15:45:00 DIS Inpatient LORIE YODER MD [facility] 4TH IRON DEFICIENCY ANEMIA [id number] 03/09/2018 09:53:00 03/09/2018 13:58:00 DIS Outpatient MANUEL LORD MD [facility] ENDO BLACK STOOLS/GERD [id number] 03/02/2018 06:07:00 03/02/2018 10:55:00 DIS Outpatient RISA POWELL, MANUEL Al[place] [facility] PREOP COLONOSCOPY/EGD [id number] 02/10/2018 21:08:00 02/11/2018 17:08:00 DIS Inpatient LORIE YODER MD [facility] 4TH ACUTE BLOOD LOSS ANEMIA [id number] 10/22/2017 11:00:00 10/22/2017 23:59:59 CLS Preadmit ROSALIE POWELL FACC, ALI FACP CCDS [facility] CARD I25.10 CAD [id number] 10/21/2017 11:24:00 10/21/2017 23:59:59 CLS Outpatient ROSALIE POWELL FACC, ALI FACP CCDS [facility] CARD I25.10 CAD [id number] 10/26/2015 10:52:00 10/26/2015 23:59:59 CLS Outpatient NEELA POWELL, RAHEEL Gastelum [facility] RAD POOR SPEECH, ASSYMETRICAL HEARING LOSS [id number] 08/31/2015 11:20:00 08/31/2015 15:18:00 DIS Emergency ESTELITA RAO MULTI NEEDLE MACHINE OPERATOR [facility] ER L SIDE FACIAL DROOPING [id number] 08/10/2015 16:20:00 08/14/2015 11:51:00 DIS Inpatient ELIZABETH MALDONADO DO [facility] 4TH CHF [id number] 08/10/2015 14:16:00 08/10/2015 23:59:59 CLS Outpatient ELIZABETH MALDONADO DO [facility] RAD HYPOXIA [id number] 06/22/2015 07:58:00 06/22/2015 23:59:59 CLS Outpatient ROSALIE POWELL FACC, ALI FACP CCDS [facility] CARD DYSPNEA,CAD,AFIB [id number] 06/09/2015 09:06:00 06/09/2015 23:59:59 CLS Outpatient ROSALIE POWELL FACC, ALI FACP CCDS [facility] CARD AFIB [id number] 02/10/2015 11:38:00 02/17/2015 12:29:00 DIS Outpatient ELIZABETH MALDONADO DO [facility] CR STENT 07/2014 [id number] 02/13/2015 10:00:00 02/13/2015 23:59:59 CLS Preadmit ELIZABETH MALDONADO DO [facility] CR STENT 07/2014 [id number] 02/08/2015 11:33:00 02/12/2015 00:01:00 DIS Outpatient ELIZABETH MALDONADO DO [facility] CR STENT 07/2014 [id number] 07/19/2014 07:10:00 07/20/2014 12:30:00 DIS Outpatient ROSALIE POWELL FACC, SINDY SCHREIBER CCDS [facility] CATH ABNORMAL STRESS,CAD [id number] 07/07/2014 08:03:00 07/07/2014 23:59:59 CLS Outpatient BAIMA, JACOB L SECURITY ALARM TECHNICIAN [facility] CARD PAF,DYPSNEA,HTN,HLP [id number] 07/05/2014 09:52:00 07/05/2014 23:59:59 CLS Outpatient BAIMA, JACOB L SECURITY ALARM TECHNICIAN [facility] CARD PAF,DYPSNEA,HTN,HLP [id number] 02/02/2019 16:42:00 Document Registration [id number] 10/27/2011 10:17:00 Document Registration [id number] 06/13/2011 11:03:00 Document Registration [id number] 06/06/2011 10:25:00 Document Registration [id number] 05/23/2011 08:41:00 Document Registration [id number] 05/09/2011 14:46:00 Document Registration [id number] 05/07/2011 09:28:00 Document Registration [id number] 01/18/2010 08:22:00 Document Registration [id number] 01/04/2010 10:38:00 Document Registration
[2019-02-02] MEDS ORDERED: GABAPENTIN 300 MG (NEURONTIN) CAP PO ONE (23:15)
[2019-02-03] MEDS: LACTATED RINGERS 1,000 ML IV SCH ×4 (01:08→23:56)
[2019-02-03 04:00] VITALS: BP 111/64
[2019-02-03 08:00] VITALS: BP 94/46
--- NOTE | 2019-02-03 11:02 | Progress Note ---
Subjective Time Seen by a Provider: 10:16 Subjective/Events-last exam Pt seen and examined, states she feels a little better than yesterday. No SOB or abdominal pain. Review of Systems General: No Chills, No Night Sweats; Fatigue Pulmonary: No Dyspnea, No Cough Cardiovascular: No: Chest Pain, Palpitations Gastrointestinal: No: Nausea, Vomiting, Abdominal Pain Objective Exam Vital Signs Date Time Temp Pulse Resp B/P (MAP) Pulse Ox O2 Delivery O2 Flow Rate FiO2 02/03/19 08:00 91 Room Air 02/03/19 08:00 99.0 72 18 94/46 (62) 91 Room Air 02/03/19 04:00 99.1 73 20 111/64 (80) 93 Room Air 02/02/19 23:53 96.2 70 18 108/65 (79) 95 Room Air 02/02/19 22:44 96.2 70 18 108/65 95 Room Air 02/02/19 20:20 96.0 69 18 103/69 98 Room Air 02/02/19 20:04 96.2 70 18 105/65 96 Room Air 02/02/19 20:00 96.2 70 18 105/65 (78) 96 Room Air 02/02/19 20:00 96 Room Air 02/02/19 19:45 96.2 70 18 105/65 96 Room Air 02/02/19 18:16 Room Air 02/02/19 17:38 96.5 72 18 93/59 95 Room Air 02/02/19 17:35 96.7 70 18 93/44 94 Room Air 02/02/19 17:16 96.7 70 18 93/44 94 Room Air 02/02/19 16:00 97.9 67 16 106/52 (70) 100 Room Air I & O 02/03/19 07:00 Intake Total 460 ml Output Total 500 ml Balance -40 ml Capillary Refill : General Appearance: No Apparent Distress, WD/WN HEENT: PERRL/EOMI Respiratory: Chest Non Tender, Lungs Clear, Normal Breath Sounds, No Accessory Muscle Use, No Respiratory Distress Cardiovascular: Regular Rate, Rhythm, No Murmur Gastrointestinal: normal bowel sounds, non tender, soft, no organomegaly, no pulsatile mass Neurologic/Psychiatric: Alert, Oriented x3, fruit or nut crops farm manager II-XII Norm as Tested Skin: Warm/Dry, Pallor Assessment/Plan Assessment/Plan Assessment/Plan Anemia ?? secondary to Duodenal ulcer Fatigue Pt with history of bleeding doudenal ulcer and Hg dropped again. Plan for EGD today, all questions answered to pts satisfaction. Did discuss risks and complications not limited to pain bleeding and even esophageal perforation. WALDEMAR GUZMÁN DO Feb 03, 2019 11:02
[2019-02-03 11:21] LABS: BASOPHILS % (AUTO) 1 % (0-10); EOSINOPHILS # (AUTO) 0.1 10^3/uL (0.0-0.3); EOSINOPHILS % (AUTO) 2 % (0-10); HEMATOCRIT 26 % (35-52); HEMOGLOBIN 8.6 G/DL (11.5-16.0); LYMPHOCYTES # (AUTO) 0.8 X 10^3 (1.0-4.0); LYMPHOCYTES % (AUTO) 10 % (12-44); MEAN CORPUSCULAR HEMOGLOBIN 30 PG (25-34); MEAN CORPUSCULAR HGB CONC 33 G/DL (32-36); MEAN CORPUSCULAR VOLUME 92 FL (80-99); MEAN PLATELET VOLUME 10.7 FL (7.4-10.4); MONOCYTES # (AUTO) 0.5 X 10^3 (0.0-1.0); MONOCYTES % (AUTO) 7 % (0-12); NEUTROPHILS # (AUTO) 6.2 X 10^3 (1.8-7.8); NEUTROPHILS % (AUTO) 81 % (42-75); PLATELET COUNT 292 10^3/uL (130-400); RED CELL DISTRIBUTION WIDTH 18.3 % (10.0-14.5); WHITE BLOOD COUNT 7.6 10^3/uL (4.3-11.0)
--- NOTE | 2019-02-03 11:36 | History & Physical-Hospitalist ---
History of Present Illness HPI/Chief Complaint The patient is a 78-year-old white female with repeated recent admissions prompted by anemia and blood loss. She was last here last week and admitted on 01/26. Her hemoglobin was 6.4 at that point in time. She was transfused 29.5. She was seen yesterday at Dr. Archer s office and had a hemoglobin of 6.6 again. She was admitted for repeat transfusion and potential colonoscopy. She has had previous upper and lower endoscopies. She also states that she had capsule endoscopy done several years ago. She has received 13 units of packed red blood cells since January 2018. Source: patient Date Seen 02/03/19 Time Seen by a Provider: 11:24 Attending Physician Rory Yoder MD PCP Nilton Kyle DO Referring Physician Date of Admission Feb 02, 2019 at 15:10 Home Medications & Allergies Home Medications Reviewed patient Home Medication Reconciliation performed by pharmacy medication reconciliations seed technician and/or nursing. Patients Allergies have been reviewed. Allergies Allergies Coded Allergies NKANo Known Allergies (Verified Allergy, Unknown, 03/26/06) Past Ghymgjf-Iaqqyo-Tmrrtk Hx Past Med/Social Hx: Reviewed Nursing Past Med/Soc Hx Patient Social History Alcohol Use: Denies Use Recreational Drug Use: No Former Smoker, Quit: Feb 11, 1985 Type Used: Cigarettes 2nd Hand Smoke Exposure: No Physical Abuse Screen: No Sexual Abuse: No Recent Foreign Travel: No Contact w/other who traveled: No Recent Hopitalizations: No Recent Infectious Disease Expo: No Immunizations Up To Date Tetanus Booster (TDap): Unknown Pediatric: No Date of Pneumonia Vaccine: Jul 19, 2011 Date of Influenza Vaccine: Jun 01, 2015 Seasonal Allergies Seasonal Allergies: No Past Medical History Surgeries: Coronary Stent Currently Using CPAP: No Currently Using BIPAP: No Cardiac: Atrial Fibrillation, Cardiomyopathy, Heart Attack, High Cholesterol Neurological: Dementia, Neuropathy 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 : No Reproductive: No Sexually Transmitted Disease: No HIV/AIDS: No Female 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 Menopausal Gastrointestinal: Gastroesophageal Reflux, Gastrointestinal Bleed Musculoskeletal: Arthritis Endocrine: Diabetes, Non-Insulin dep HEENT: Cataract Loss of Vision: Denies Hearing Impairment: Denies Psychosocial: Depression History of Blood Disorders: Yes (anemia) Adverse Reaction to Blood Coribn: No Family History Cardiovascular disease 19 FATHER 19 MOTHER FH: stroke FHx: diabetes mellitus Heart Disease, Diabetes, Hypertension Review of Systems Constitutional: see HPI Gastrointestinal: no symptoms reported, other (nontender to palpation) Physical Exam Physical Exam Vital Signs Vital Signs - First Documented 02/02/19 16:00 Temp 97.9 Pulse 67 Resp 16 B/P (MAP) 106/52 (70) Pulse Ox 100 O2 Delivery Room Air Capillary Refill : Height, Weight, BMI Height: 5'1.50" Weight: 191lbs. 8.0oz. 86.405092ez; 36.9 BMI Method:Stated General Appearance: No Apparent Distress, Other (reports that she is weary of the repeated transfusions without benefit of definitive diagnosis) HEENT: Normal ENT Inspection Neck: Full Range of Motion Respiratory: Chest Non Tender, Lungs Clear, Normal Breath Sounds Cardiovascular: Regular Rate, Rhythm Gastrointestinal: Normal Bowel Sounds, No Organomegaly Results Results/Procedures Labs Laboratory Tests 02/03/19 11:11 Patient resulted labs reviewed. Assessment/Plan Admission Diagnosis , Hemoglobin 6.6. 2.presumed blood loss Admission Status: Observation RORY YODER MD Feb 03, 2019 11:36
[2019-02-03 12:00] VITALS: BP 133/75
[2019-02-03] MEDS ORDERED: LACTATED RINGERS 1,000 ML IV ONE (13:15)
[2019-02-03] MEDS ORDERED: LACTATED RINGERS 1,000 ML IV PRN (13:38)
--- NOTE | 2019-02-03 13:55 | Progress Note-Post Operative ---
Post-Operative Progess Note Surgeon (s)/Varnish Melter (s) Surgeon WALDEMAR GUZMÁN DO Varnish Melter: none Pre-Operative Diagnosis Anemia, hx of Duodenal ulcer Post-Operative Diagnosis Anemia Procedure & Operative Findings Date of Procedure 02/03/19 Procedure Performed/Findings EGD Anesthesia Type IV sedation by TAPE MACHINE TAILER Estimated Blood Loss Estimated blood loss (mL): none Specimens/Packing Specimens Removed none WALDEMAR GUZMÁN DO Feb 03, 2019 13:55
--- NOTE | 2019-02-03 14:00 | NUR ---
Pastoral care visit,
[2019-02-03 15:38] VITALS: BP 93/44
--- NOTE | 2019-02-03 19:18 | OPERATIVE REPORT ---
DATE OF SERVICE: PREOPERATIVE DIAGNOSES: 1. Anemia. 2. History of bleeding duodenal ulcer. POSTOPERATIVE DIAGNOSIS: Anemia. PROCEDURE: EGD. SURGEON: David Archer DO CHANGE CONTROL ANALYST: None. ANESTHESIA: IV sedation by the BILLING SERVICES MANAGER. SPECIMEN: None. BLOOD LOSS: None. FLUIDS: Per anesthesia. POSTOPERATIVE CONDITION: Stable. INDICATION FOR PROCEDURE: The patient is a 78-year-old female who has history of bleeding duodenal ulcer and when she was seen in the office yesterday, her hemoglobin had dropped and she has complained of being very weak and dizzy. She was sent to the hospital for transfusion and to be admitted for EGD to make sure the ulcer did not start bleeding again. FINDINGS: The patient had no blood in the stomach or first and second and even third portion of the duodenum. No signs of bleeding from upper GI. PROCEDURE NOTE: After informed consent was obtained, the patient was brought to the endoscopy suite and placed in the bed in left lateral decubitus position. She was administered IV sedation by the BILLING SERVICES MANAGER who then monitored her vitals the entire time, heart rate, blood pressure, pulse ox. The scope was inserted down the mouth through the esophagus into the stomach, pushed into the duodenum, looked to the first portion, pushed into the second and even to third portion of duodenum. I did not see any bleeding, no signs of any ulcer, looked completely fine, backed up into the stomach, antrum looked good. Retroflexed the scope, looked up. She did have a small hiatal hernia, but no signs of bleeding or ulcers in the stomach, pulled the scope back into the GE junction, took a picture of the GE junction, no bleeding here and none up the esophagus, removed the scope through the esophagus and out the mouth. The patient tolerated the procedure and recovered in endoscopy suite. Job ID: [id number] DocumentID: [id number] Dictated Date: 02/03/2019 13:47:19 Tube Repairer Date: 02/03/2019 19:17:53 Dictated By: DAVID ARCHER DO
[2019-02-03 20:00] VITALS: BP 107/52
[2019-02-03] MEDS ORDERED: GABAPENTIN 300 MG (NEURONTIN) CAP PO ONE (23:15)
[2019-02-04 00:11] VITALS: BP 113/55
[2019-02-04 04:34] VITALS: BP 110/56
[2019-02-04 07:12] LABS: BASOPHILS % (AUTO) 0 % (0-10); EOSINOPHILS # (AUTO) 0.2 10^3/uL (0.0-0.3); EOSINOPHILS % (AUTO) 2 % (0-10); HEMATOCRIT 25 % (35-52); HEMOGLOBIN 8.1 G/DL (11.5-16.0); LYMPHOCYTES # (AUTO) 0.9 X 10^3 (1.0-4.0); LYMPHOCYTES % (AUTO) 12 % (12-44); MEAN CORPUSCULAR HEMOGLOBIN 30 PG (25-34); MEAN CORPUSCULAR HGB CONC 32 G/DL (32-36); MEAN CORPUSCULAR VOLUME 92 FL (80-99); MEAN PLATELET VOLUME 10.2 FL (7.4-10.4); MONOCYTES # (AUTO) 0.8 X 10^3 (0.0-1.0); MONOCYTES % (AUTO) 11 % (0-12); NEUTROPHILS # (AUTO) 5.7 X 10^3 (1.8-7.8); NEUTROPHILS % (AUTO) 76 % (42-75); PLATELET COUNT 296 10^3/uL (130-400); RED CELL DISTRIBUTION WIDTH 18.3 % (10.0-14.5); WHITE BLOOD COUNT 7.6 10^3/uL (4.3-11.0)
[2019-02-04 08:00] VITALS: BP 118/70
--- NOTE | 2019-02-04 10:45 | Progress Note-Hospitalist ---
Progress Note Progress Notes/Assess & Plan Date Seen 02/04/19 Time Seen by Provider: 10:40 Assessment & Plan The patient is up in the chair at bedside. She reports she feels a bit more energetic. She is puzzled by why she has continued to have recurrent anemia and need for transfusion. We discussed slow loss of blood and the possibility that her bone marrow cannot keep up in part because of aging changes. Physical exam: She is alert and pleasant. Lungs are clear to auscultation. CV is regular. Impression: Recurrent anemia (normochromic normocytic) LORIE YODER MD Feb 04, 2019 10:45
--- NOTE | 2019-02-04 11:04 | Discharge Inst-Simple/Standard ---
Discharge Inst-Standard Patient Instructions/Follow Up Plan of Care/Instructions/FU: Medications as listed on the discharge sequence. Appointment with Dr. Kyle next week for repeat blood count and future plans. Observe your stools for black or red color. Activity as Tolerated: Yes Discharge Diet: No Restrictions LORIE YODER MD Feb 04, 2019 11:04
--- NOTE | 2019-02-04 11:09 | Progress Note ---
Subjective Time Seen by a Provider: 10:41 Subjective/Events-last exam Pt seen and examined, only complaint is she is still dizzy but does feel stronger. Denies abdominal pain. Review of Systems General: No Chills, No Night Sweats; Fatigue Pulmonary: No Dyspnea, No Cough Cardiovascular: No: Chest Pain, Palpitations Gastrointestinal: No: Nausea, Vomiting, Abdominal Pain Objective Exam Vital Signs Date Time Temp Pulse Resp B/P (MAP) Pulse Ox O2 Delivery O2 Flow Rate FiO2 02/04/19 08:00 98.5 79 18 118/70 (86) 97 Room Air 02/04/19 04:34 97.9 75 16 110/56 (74) 93 Room Air 02/04/19 00:11 97.4 80 20 113/55 (74) 94 Room Air 02/03/19 20:00 98.1 75 20 107/52 (70) 98 Room Air 02/03/19 20:00 91 Room Air 02/03/19 15:38 97.4 79 18 93/44 (60) 95 Room Air 02/03/19 13:50 80 20 93 Room Air 02/03/19 12:00 98.8 72 18 133/75 (94) 95 Room Air I & O 02/04/19 07:00 Intake Total 2320 ml Output Total 301 ml Balance 2019 ml Capillary Refill : General Appearance: No Apparent Distress, Chronically ill Neck: Full Range of Motion Respiratory: Chest Non Tender, Lungs Clear, Normal Breath Sounds Cardiovascular: Regular Rate, Rhythm, No Murmur Gastrointestinal: normal bowel sounds, non tender, soft, no organomegaly, no pulsatile mass Neurologic/Psychiatric: Alert, Oriented x3, pediatric genetic counselor II-XII Norm as Tested Skin: Warm/Dry, Pallor Results Lab Laboratory Tests 02/03/19 11:11: White Blood Count 7.6, Red Blood Count 2.85L, Hemoglobin 8.6#L, Hematocrit 26L, Mean Corpuscular Volume 92, Mean Corpuscular Hemoglobin 30, Mean Corpuscular Hemoglobin Concent 33, Red Cell Distribution Width 18.3H, Platelet Count 292, Mean Platelet Volume 10.7H, Neutrophils (%) (Auto) 81H, Lymphocytes (%) (Auto) 10L, Monocytes (%) (Auto) 7, Eosinophils (%) (Auto) 2, Basophils (%) (Auto) 1, Neutrophils # (Auto) 6.2, Lymphocytes # (Auto) 0.8L, Monocytes # (Auto) 0.5, Eosinophils # (Auto) 0.1, Basophils # (Auto) 0.0 02/03/19 13:18: Lab Scanned Report Transfusion Reaction Form 02/04/19 07:05: White Blood Count 7.6, Red Blood Count 2.74L, Hemoglobin 8.1L, Hematocrit 25L, Mean Corpuscular Volume 92, Mean Corpuscular Hemoglobin 30, Mean Corpuscular Hemoglobin Concent 32, Red Cell Distribution Width 18.3H, Platelet Count 296, Mean Platelet Volume 10.2, Neutrophils (%) (Auto) 76H, Lymphocytes (%) (Auto) 12, Monocytes (%) (Auto) 11, Eosinophils (%) (Auto) 2, Basophils (%) (Auto) 0, Neutrophils # (Auto) 5.7, Lymphocytes # (Auto) 0.9L, Monocytes # (Auto) 0.8, Eosinophils # (Auto) 0.2, Basophils # (Auto) 0.0 Assessment/Plan Assessment/Plan Assessment/Plan Anemia - no source seen on EGD Fatigue Duodenal ulcer has healed Pt is s/p EGD which did not find any upper GI source for anemia. Went into 2-3 portion of duodenum, no bleeding and no ulcer seen. Pt has appointment with Fur Blender and may need iron. Ok to d/c home from surgery standpoint. F/U in my office in a week. Clinical Quality Measures DVT/VTE Risk/Contraindication: Risk Factor Score Per Nursin RFS Level Per Nursing on Admit: 4+=Very High WALDEMAR GUZMÁN DO Feb 04, 2019 11:08
--- NOTE | 2019-02-04 11:43 | NUR ---
Pt is discharging home today. She will be returning to her apt. in [place] where she lives alone. She has a sister who lives in the same complex and is her primary caregiver. [employer] was contacted and resumed as arranged prior to last discharge. Pt has a Front Wheel Walker at home she uses for steadiness. She has appt. at the [facility] for hematology and is scheduled March 25 for lab work and will be seen by Dr. Zafar on March 30 pt advised that if she or her physician would like her to be seen earlier or for any concern please contact us;
[2019-02-04 12:40] VITALS: BP 118/70
== END 2019-02-04 12:40 | disposition home or self-care (01) ==
LOC: 4TH 15:10
PROVIDERS: ADMIT Surgery; ATTEND Internal Medicine
DX: D64.9 Anemia, unspecified (principal); R53.83 Other fatigue; Z87.19 Personal history of other diseases of the digestive system; I48.91 Unspecified atrial fibrillation; I42.9 Cardiomyopathy, unspecified; E78.00 Pure hypercholesterolemia, unspecified; I25.2 Old myocardial infarction; F03.90 Unspecified dementia, unspecified severity, without behavioral disturbance, psychotic disturbance, mood disturbance, and anxiety; E11.40 Type 2 diabetes mellitus with diabetic neuropathy, unspecified; K21.9 Gastro-esophageal reflux disease without esophagitis; M19.91 Primary osteoarthritis, unspecified site; F32.9 Major depressive disorder, single episode, unspecified; G51.0 Bell's palsy; H26.9 Unspecified cataract; Z79.899 Other long term (current) drug therapy; Z79.84 Long term (current) use of oral hypoglycemic drugs; Z87.891 Personal history of nicotine dependence; I50.9 Heart failure, unspecified; Z99.81 Dependence on supplemental oxygen; Z95.5 Presence of coronary angioplasty implant and graft
CPT/HCPCS: 36415; 85025; 86850; 86900; 86901; 86920

== ENCOUNTER → 2019-02-02 | Outpatient (CLI) | payer MEDICARE, MEDICAID ==
[~2019-02-02] MED LIST changes: +FAMO20TA5 PO; +MAGN400T29 PO
[2019-02-02 14:44] LABS: HEMOGLOBIN 6.6 G/DL (11.5-16.0)
== END ==
LOC: LAB 14:12
PROVIDERS: ATTEND Surgery
DX: D64.9 Anemia, unspecified (principal)
CPT/HCPCS: 36415; 85014; 85018

== ENCOUNTER 2019-02-07 14:03 | Emergency (ER) | payer MEDICARE, MEDICAID ==
[~2019-02-07] VITALS: Ht 156.2 cm; Wt 86.9 kg
--- OUTSIDE RECORDS SUMMARY | 2019-02-07 14:10 | XMS REPORT | Continuity of Care Document ---
[...] FACP CCDS Ot 414.01 CORONARY ATHEROSCLEROSIS OF [place] CORON 07/20/2014 SINDY WIGGINS MD, FACC FACP [...] INDEX 40.0-44.9, ADULT 08/09/2014 BAIMA, JACOB L PEDIATRICIAN ACTIVE PRACTICE Ot 272.4 08/09/2014 BAIMA, JACOB L PEDIATRICIAN ACTIVE PRACTICE Ot 401.9 08/09/2014 BAIMA, JACOB L PEDIATRICIAN ACTIVE PRACTICE Ot 427.31 08/09/2014 BAIMA, JACOB L PEDIATRICIAN ACTIVE PRACTICE Ot 784.0 08/09/2014 BAIMA, JACOB L PEDIATRICIAN ACTIVE PRACTICE Ot 786.09 08/09/2014 BAIMA, JACOB L PEDIATRICIAN ACTIVE PRACTICE Ot 786.59 08/19/2014 BAIMA, JACOB L PEDIATRICIAN ACTIVE PRACTICE Ot 272.4 08/19/2014 BAIMA, JACOB L PEDIATRICIAN ACTIVE PRACTICE Ot 401.9 08/19/2014 BAIMA, JACOB L PEDIATRICIAN ACTIVE PRACTICE Ot 427.31 08/19/2014 BAIMA, JACOB L PEDIATRICIAN ACTIVE PRACTICE Ot 784.0 08/19/2014 BAIMA, JACOB L PEDIATRICIAN ACTIVE PRACTICE Ot 786.09 08/19/2014 BAIMA, JACOB L PEDIATRICIAN ACTIVE PRACTICE Ot 786.59 08/22/2014 BAIMA, JACOB L PEDIATRICIAN ACTIVE PRACTICE Ot 272.4 08/22/2014 BAIMA, JACOB L PEDIATRICIAN ACTIVE PRACTICE Ot 401.9 08/22/2014 BAIMA, JACOB L PEDIATRICIAN ACTIVE PRACTICE Ot 427.31 08/22/2014 BAIMA, JACOB L PEDIATRICIAN ACTIVE PRACTICE Ot 786.09 08/22/2014 BAIMA, JACOB L PEDIATRICIAN ACTIVE PRACTICE Ot V58.61 09/06/2014 BAIMA, JACOB L PEDIATRICIAN ACTIVE PRACTICE Ot 272.4 09/06/2014 BAIMA, JACOB L PEDIATRICIAN ACTIVE PRACTICE Ot 401.9 09/06/2014 BAIMA, JACOB L PEDIATRICIAN ACTIVE PRACTICE Ot 427.31 09/06/2014 BAIMA, JACOB L PEDIATRICIAN ACTIVE PRACTICE Ot 786.09 09/06/2014 BAIMA JACOB L PEDIATRICIAN ACTIVE PRACTICE Ot V58.61 01/03/2015 ELIZABETH MALDONADO DO Ot [...] 06/09/2015 Ot V58.69 06/09/2015 BAIMA, JACOB L PEDIATRICIAN ACTIVE PRACTICE Ot 272.4 06/09/2015 BAIMA, JACOB L PEDIATRICIAN ACTIVE PRACTICE Ot 401.9 06/09/2015 BAIMA, JACOB L PEDIATRICIAN ACTIVE PRACTICE Ot 427.31 06/09/2015 BAIMA, JACOB L PEDIATRICIAN ACTIVE PRACTICE Ot 786.09 06/09/2015 BAIMA, JACOB L PEDIATRICIAN ACTIVE PRACTICE Ot V58.61 06/09/2015 BAIMA, JACOB L PEDIATRICIAN ACTIVE PRACTICE Ot 272.4 06/09/2015 BAIMA, JACOB L PEDIATRICIAN ACTIVE PRACTICE Ot 401.9 06/09/2015 BAIMA, JACOB L PEDIATRICIAN ACTIVE PRACTICE Ot 427.31 06/09/2015 BAIMA, JACOB L PEDIATRICIAN ACTIVE PRACTICE Ot 784.0 06/09/2015 BAIMA, JACOB L PEDIATRICIAN ACTIVE PRACTICE Ot 786.09 06/09/2015 BAIMA, JACOB L PEDIATRICIAN ACTIVE PRACTICE Ot 786.59 06/09/2015 ELIZABETH MALDONADO DO Ot [...] FACP CCDS Ot I48.91 07/31/2015 ROSALIE POWELL [facility], ALI FACP CCDS Ot R06.09 08/14/2015 ELIZABETH MALDONADO DO Ot D64.9 ANEMIA, UNSPECIFIED 08/14/2015 ELIZABETH MALDONADO DO Ot 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 08/14/2015 ELIZABETH MALDONADO DO Ot E66.9 OBESITY, UNSPECIFIED 08/14/2015 ELIZABETH MALDONADO DO, Ot E78.5 HYPERLIPIDEMIA, UNSPECIFIED 08/14/2015 ELIZABETH MALDONADO DO Ot I10 ESSENTIAL (PRIMARY) HYPERTENSION 08/14/2015 ELIZABETH MALDONADO DO, Ot I25.10 ATHSCL HEART DISEASE OF [place] CORONARY 08/14/2015 ELIZABETH MALDONADO DO, Ot I27.2 [...] MALDONADO DO Ot R09.02 08/31/2015 ESTELITA RAO SAUSAGE LINKER Ot 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 08/31/2015 ESTELITA RAO SAUSAGE LINKER Ot H60.12 CELLULITIS OF LEFT EXTERNAL EAR 09/22/2015 ELIZABETH MALDONADO DO Ot R09.02 11/15/2015 NEELA POWELL, RAHEEL Gastelum Ot H91.90 11/28/2015 NEELA POWELL, RAHEEL Gastelum Ot H91.90 10/21/2017 BAIMA, JACOB L PEDIATRICIAN ACTIVE PRACTICE Ot 272.4 HYPERLIPIDEMIA NEC/NOS 10/21/2017 BAIMA, JCAOB L PEDIATRICIAN ACTIVE PRACTICE Ot 401.9 HYPERTENSION NOS 10/21/2017 BAIMA, JACOB L PEDIATRICIAN ACTIVE PRACTICE Ot 427.31 ATRIAL FIBRILLATION 10/21/2017 BAIMA, JACOB L PEDIATRICIAN ACTIVE PRACTICE Ot 786.09 RESPIRATORY ABNORM NEC 10/21/2017 BAIMA, JACOB L PEDIATRICIAN ACTIVE PRACTICE Ot V58.61 ANTICOAGULANTS,LT,CURRENT USE 10/21/2017 BAIMA, JACOB L PEDIATRICIAN ACTIVE PRACTICE Ot 272.4 HYPERLIPIDEMIA NEC/NOS 10/21/2017 BAIMA, JACOB L PEDIATRICIAN ACTIVE PRACTICE Ot 401.9 HYPERTENSION NOS 10/21/2017 BAIMA, JACOB L PEDIATRICIAN ACTIVE PRACTICE Ot 427.31 ATRIAL FIBRILLATION 10/21/2017 BAIMA, JACOB L PEDIATRICIAN ACTIVE PRACTICE Ot 784.0 HEADACHE 10/21/2017 BAIMA, JACOB L PEDIATRICIAN ACTIVE PRACTICE Ot 786.09 RESPIRATORY ABNORM NEC 10/21/2017 BAIMA, JACOB L PEDIATRICIAN ACTIVE PRACTICE Ot 786.59 CHEST PAIN NEC 10/21/2017 ELIZABETH MALDONADO DO Ot V45.82 PERCUTANEOUS TRANSLUM CORON ANGIOPLASTY 10/21/2017 ELIZABETH MALDONADO DO Ot V57.89 REHABILITATION PROC NEC 10/21/2017 ROSALIE POWELL FACC, SINDY KNIGHTP CCDS Ot E78.5 HYPERLIPIDEMIA, UNSPECIFIED 10/21/2017 ROSALIE POWELL FACC, ALI FACP CCDS Ot I10 ESSENTIAL (PRIMARY) HYPERTENSION 10/21/2017 ROSALIE POWELL FACC, SINDY FACP CCDS Ot I25.10 ATHSCL HEART DISEASE OF [place] CORONARY 10/21/2017 ROSALIE POWELL FACC, ALI FACP CCDS Ot I48.91 UNSPECIFIED ATRIAL FIBRILLATION 10/21/2017 ROSALIE POWELL FACC, ALI FACP CCDS Ot R06.09 OTHER FORMS OF DYSPNEA 10/21/2017 ROSALIE POWELL FACC, ALI FACP CCDS Ot E78.5 HYPERLIPIDEMIA, UNSPECIFIED 10/21/2017 ROSALIE POWELL FACC, ALI FACP CCDS Ot I10 ESSENTIAL (PRIMARY) HYPERTENSION 10/21/2017 ROSALIE POWELL FACC, ALI FACP CCDS Ot I25.10 ATHSCL HEART DISEASE OF [place] CORONARY 10/21/2017 ROSALIE POWELL FACC, ALI FACP [...] CCDS Ot I25.10 ATHSCL HEART DISEASE OF [place] CORONARY 10/22/2017 ROSALIE POWELL FACC, ALI FACP [...] CCDS Ot I25.10 ATHSCL HEART DISEASE OF [place] CORONARY 11/20/2017 ROSALIE POWELL FAC, ALI FACP [...] MD Ot I25.10 ATHSCL HEART DISEASE OF [place] CORONARY 02/11/2018 LORIE YODER MD Ot I25.2 OLD MYOCARDIAL INFARCTION 02/11/2018 LORIE YODER MD Ot I42.9 CARDIOMYOPATHY, UNSPECIFIED 02/11/2018 LORIE YODER MD Ot I48.91 UNSPECIFIED ATRIAL FIBRILLATION 02/11/2018 LORIE YODRE MD Ot R29.6 REPEATED FALLS 02/11/2018 LORIE [...] MD Ot I25.10 ATHSCL HEART DISEASE OF [place] CORONARY 02/11/2018 LORIE YODER MD Ot I25.2 OLD MYOCARDIAL INFARCTION 02/11/2018 LORIE YODER MD Ot I42.9 CARDIOMYOPATHY, UNSPECIFIED 02/11/2018 LORIE YODER MD Ot I48.91 UNSPECIFIED ATRIAL FIBRILLATION 02/11/2018 PARESH POWELL, LORIE Martinez Ot R29.6 REPEATED FALLS 02/11/2018 PARESH POWELL, LORIE Martinez Ot Z87.891 PERSONAL HISTORY OF NICOTINE DEPENDENCE 02/11/2018 PARESH POWELL, OLRIE Martinez Ot Z91.81 HISTORY OF FALLING 03/02/2018 RISA POWELL, MANUEL Alva Ot Z01.818 ENCOUNTER FOR OTHER PREPROCEDURAL EXAMIN 03/05/2018 RISA POWELL, MANUEL Alva Ot Z01.818 ENCOUNTER FOR OTHER PREPROCEDURAL EXAMIN 03/09/2018 BAIMA, JACOB L PEDIATRICIAN ACTIVE PRACTICE Ot 272.4 HYPERLIPIDEMIA NEC/NOS 03/09/2018 BAIMA, JACOB L PEDIATRICIAN ACTIVE PRACTICE Ot 401.9 HYPERTENSION NOS 03/09/2018 BAIMA, JACOB L PEDIATRICIAN ACTIVE PRACTICE Ot 427.31 ATRIAL FIBRILLATION 03/09/2018 BAIMA, JACOB L PEDIATRICIAN ACTIVE PRACTICE Ot 786.09 RESPIRATORY ABNORM NEC 03/09/2018 BAIMA, JACOB L PEDIATRICIAN ACTIVE PRACTICE Ot V58.61 ANTICOAGULANTS,LT,CURRENT USE 03/09/2018 BAIMA, JACOB L PEDIATRICIAN ACTIVE PRACTICE Ot 272.4 HYPERLIPIDEMIA NEC/NOS 03/09/2018 BAIMA, JACOB L PEDIATRICIAN ACTIVE PRACTICE Ot 401.9 HYPERTENSION NOS 03/09/2018 BAIMA, JACOB L PEDIATRICIAN ACTIVE PRACTICE Ot 427.31 ATRIAL FIBRILLATION 03/09/2018 BAIMA, JACOB L PEDIATRICIAN ACTIVE PRACTICE Ot 784.0 HEADACHE 03/09/2018 BAIMA, JACOB L PEDIATRICIAN ACTIVE PRACTICE Ot 786.09 RESPIRATORY ABNORM NEC 03/09/2018 BAIMA, JACOB L PEDIATRICIAN ACTIVE PRACTICE Ot 786.59 CHEST PAIN NEC 03/09/2018 ELIZABETH MALDONADO DO Ot V45.82 PERCUTANEOUS TRANSLUM CORON ANGIOPLASTY 03/09/2018 ELIZABETH MALDONADO DO Ot V57.89 REHABILITATION PROC NEC 03/09/2018 ROSALIE POWELL FACC, SINDY FACP CCDS Ot E78.5 HYPERLIPIDEMIA, UNSPECIFIED 03/09/2018 ROSALIE POWELL FACC, SINDY FACP CCDS Ot I10 ESSENTIAL (PRIMARY) HYPERTENSION 03/09/2018 ROSALIE POWELL FACC, SINDY FACP CCDS Ot I25.10 ATHSCL HEART DISEASE OF [place] CORONARY 03/09/2018 ROSALIE POWELL FACC, SINDY KNIGHTP CCDS Ot I48.91 UNSPECIFIED ATRIAL FIBRILLATION 03/09/2018 ROSALIE MD FACC, ALI FACP CCDS Ot R06.09 OTHER FORMS OF DYSPNEA 03/09/2018 ROSALIE POWELL FACC, ALI FACP CCDS Ot E78.5 HYPERLIPIDEMIA, UNSPECIFIED 03/09/2018 ROSALIE POWELL FACC, ALI FACP CCDS Ot I10 ESSENTIAL (PRIMARY) HYPERTENSION 03/09/2018 ROSALIE POWELL FACC, ALI FACP CCDS Ot I25.10 ATHSCL HEART DISEASE OF [place] CORONARY 03/09/2018 ROSALIE POWELL FACC, ALI FACP [...] CCDS Ot I25.10 ATHSCL HEART DISEASE OF [place] CORONARY 03/09/2018 ROSALIE POWELL FACC, ALI FACP [...] MELENA 03/09/2018 MANUEL LORD MD Ot Z79.82 PORCELAIN SLUSHER (CURRENT) USE OF ASPIRIN 03/09/2018 MANUEL LORD [...] MELENA 03/11/2018 MANUEL LORD MD Ot Z79.82 PORCELAIN SLUSHER (CURRENT) USE OF ASPIRIN 03/11/2018 MANUEL LORD [...] MELENA 03/17/2018 MANUEL LORD MD Ot Z79.82 PORCELAIN SLUSHER (CURRENT) USE OF ASPIRIN 03/17/2018 MANUEL LORD [...] MD, Ot I25.10 ATHSCL HEART DISEASE OF [place] CORONARY 05/26/2018 LORIE YODER MD, Ot I48.91 [...] MD Ot I25.10 ATHSCL HEART DISEASE OF [place] CORONARY 05/27/2018 LORIE YODER MD Ot I48.91 [...] ADULT 05/27/2018 LORIE YODER MD Ot Z79.01 PORCELAIN SLUSHER (CURRENT) USE OF ANTICOAGULANT 05/27/2018 LORIE YODER [...] MD Ot I25.10 ATHSCL HEART DISEASE OF [place] CORONARY 05/27/2018 LORIE YODER MD Ot I25.2 [...] MD, Ot I25.10 ATHSCL HEART DISEASE OF [place] CORONARY 05/27/2018 LORIE YODER MD, Ot I25.2 [...] ADULT 05/27/2018 LORIE YODER MD, Ot Z79.01 PORCELAIN SLUSHER (CURRENT) USE OF ANTICOAGULANT 05/27/2018 LORIE YODER MD, Ot Z79.84 PORCELAIN SLUSHER (CURRENT) USE OF ORAL HYPOGLYC 05/27/2018 LORIE [...] MD, Ot I25.10 ATHSCL HEART DISEASE OF [place] CORONARY 05/28/2018 LORIE YODER MD, Ot I25.2 [...] MD, Ot I25.10 ATHSCL HEART DISEASE OF [place] CORONARY 05/28/2018 LORIE YODER MD, Ot I25.2 [...] ADULT 05/28/2018 LORIE YODER MD Ot Z79.01 PORCELAIN SLUSHER (CURRENT) USE OF ANTICOAGULANT 05/28/2018 LORIE YODER [...] CCDS Ot I25.10 ATHSCL HEART DISEASE OF [place] CORONARY 05/29/2018 ROSALIE KNIGHT, SINDY FACP CCDS [...] D64.9 ANEMIA, UNSPECIFIED 11/04/2018 BAIMA, JACOB L PEDIATRICIAN ACTIVE PRACTICE Ot 272.4 HYPERLIPIDEMIA NEC/NOS 11/04/2018 BAIMA, JACOB L PEDIATRICIAN ACTIVE PRACTICE Ot 401.9 HYPERTENSION NOS 11/04/2018 BAIMA, JACOB L PEDIATRICIAN ACTIVE PRACTICE Ot 427.31 ATRIAL FIBRILLATION 11/04/2018 BAIMA, JACOB L PEDIATRICIAN ACTIVE PRACTICE Ot 786.09 RESPIRATORY ABNORM NEC 11/04/2018 BAIMA, JACOB L PEDIATRICIAN ACTIVE PRACTICE Ot V58.61 ANTICOAGULANTS,LT,CURRENT USE 11/04/2018 BAIMA, JACOB L PEDIATRICIAN ACTIVE PRACTICE Ot 272.4 HYPERLIPIDEMIA NEC/NOS 11/04/2018 BAIMA, JACOB L PEDIATRICIAN ACTIVE PRACTICE Ot 401.9 HYPERTENSION NOS 11/04/2018 BAIMA, JACOB L PEDIATRICIAN ACTIVE PRACTICE Ot 427.31 ATRIAL FIBRILLATION 11/04/2018 BAIMA, JACOB L PEDIATRICIAN ACTIVE PRACTICE Ot 784.0 HEADACHE 11/04/2018 BAIMA, JACOB L PEDIATRICIAN ACTIVE PRACTICE Ot 786.09 RESPIRATORY ABNORM NEC 11/04/2018 BAIMA, JACOB L PEDIATRICIAN ACTIVE PRACTICE Ot 786.59 CHEST PAIN NEC 11/04/2018 ELIZABETH MALDONADO DO Ot V45.82 PERCUTANEOUS TRANSLUM CORON ANGIOPLASTY 11/04/2018 ELIZABETH MALDONADO DO Ot V57.89 REHABILITATION PROC NEC 11/04/2018 ROSALIE KNIGHTC, ALI FACP CCDS Ot E78.5 HYPERLIPIDEMIA, UNSPECIFIED 11/04/2018 ROSALIE POWELL FACRolf, ALI FACP CCDS Ot I10 ESSENTIAL (PRIMARY) HYPERTENSION 11/04/2018 ROSALIE POWELL FACC, ALI FACP CCDS Ot I25.10 ATHSCL HEART DISEASE OF [place] CORONARY 11/04/2018 ROSALIE POWELL FACC, ALI FACP CCDS Ot I48.91 UNSPECIFIED ATRIAL FIBRILLATION 11/04/2018 ROSALIE POWELL FACC, ALI FACP CCDS Ot R06.09 OTHER FORMS OF DYSPNEA 11/04/2018 ROSALIE POWELL FACC, ALI FACP CCDS Ot E78.5 HYPERLIPIDEMIA, UNSPECIFIED 11/04/2018 ROSALIE POWELL FACC, ALI FACP CCDS Ot I10 ESSENTIAL (PRIMARY) HYPERTENSION 11/04/2018 ROSALIE KNIGHTC, ALI FACP CCDS Ot I25.10 ATHSCL HEART DISEASE OF [place] CORONARY 11/04/2018 ROSALIE POWELL FACC, ALI FACP [...] CCDS Ot I25.10 ATHSCL HEART DISEASE OF [place] CORONARY 11/04/2018 ROSALIE POWELL FACC, ALI FACP [...] MD, Ot I25.10 ATHSCL HEART DISEASE OF [place] CORONARY 01/08/2019 LORIE YODER MD, Ot I25.5 [...] MD, Ot I25.10 ATHSCL HEART DISEASE OF [place] CORONARY 01/10/2019 LORIE YODER MD, Ot I25.5 [...] ADULT 01/10/2019 LORIE YODER MD Ot Z79.01 PORCELAIN SLUSHER (CURRENT) USE OF ANTICOAGULANT 01/10/2019 LORIE YODER MD, Ot Z79.84 PORCELAIN SLUSHER (CURRENT) USE OF ORAL HYPOGLYC 01/10/2019 LORIE [...] DISEASE WITH HEART FA 01/10/2019 LORIE YODER MD Ot I25.10 ATHSCL HEART DISEASE OF [place] CORONARY 01/10/2019 LORIE YODER MD, Ot I25.5 [...] ADULT 01/10/2019 LORIE YODER MD Ot Z79.01 PORCELAIN SLUSHER (CURRENT) USE OF ANTICOAGULANT 01/10/2019 LORIE YODER [...] ANGIOPLASTY IMPLANT 01/29/2019 LORIE YODER MD Ot D50.9 IRON DEFICIENCY ANEMIA, UNSPECIFIED 01/29/2019 LORIE YODER MD Ot D62 ACUTE [...] Ot 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 01/29/2019 LORIE YODER MD Ot G51.8 OTHER DISORDERS OF FACIAL NERVE 01/29/2019 LORIE YODER MD Ot I11.0 HYPERTENSIVE HEART DISEASE WITH HEART FA 01/29/2019 LORIE YODER MD Ot I25.10 ATHSCL HEART DISEASE OF [place] CORONARY 01/29/2019 LORIE YODER MD, Ot I25.2 OLD MYOCARDIAL INFARCTION 01/29/2019 LORIE YODER MD, Ot I25.5 ISCHEMIC CARDIOMYOPATHY 01/29/2019 LORIE YODER MD Ot I48.2 CHRONIC ATRIAL FIBRILLATION 01/29/2019 LORIE YODER MD, Ot I49.3 VENTRICULAR PREMATURE DEPOLARIZATION 01/29/2019 LORIE YODER MD Ot 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 01/29/2019 LORIE YODER MD Ot I65.23 OCCLUSION AND STENOSIS OF BILATERAL [place] 01/29/2019 LORIE YODER MD Ot I95.9 HYPOTENSION, UNSPECIFIED 01/29/2019 LORIE YODER MD Ot J44.9 CHRONIC OBSTRUCTIVE PULMONARY DISEASE, U 01/29/2019 LORIE YODER MD Ot K21.9 GASTRO-ESOPHAGEAL REFLUX DISEASE WITHOUT 01/29/2019 LORIE YODER MD Ot K26.4 CHRONIC OR UNSPECIFIED DUODENAL ULCER [place] 01/29/2019 LORIE YODER MD Ot K44.9 DIAPHRAGMATIC HERNIA WITHOUT OBSTRUCTION 01/29/2019 LORIE YODER MD Ot K92.1 MELENA 01/29/2019 LORIE YODER MD Ot M19.91 PRIMARY OSTEOARTHRITIS, UNSPECIFIED SITE 01/29/2019 LORIE YODER MD Ot R41.3 OTHER AMNESIA 01/29/2019 LORIE YODER MD Ot Z68.38 BODY MASS INDEX (BMI) 38.0-38.9, ADULT 01/29/2019 LORIE YODER MD Ot Z79.01 PORCELAIN SLUSHER (CURRENT) USE OF ANTICOAGULANT 01/29/2019 LORIE YODER MD Ot Z79.84 PORCELAIN SLUSHER (CURRENT) USE OF ORAL HYPOGLYC 01/29/2019 LORIE [...] MD, Ot Z99.81 DEPENDENCE ON SUPPLEMENTAL OXYGEN 02/02/2019 WALDEMAR GUZMÁN DO Ot D64.9 ANEMIA, UNSPECIFIED Procedures Code Description Performed By Performed On [id number] DESTRUCTION OF STOMACH, ENDO 05/28/2018 [id number] EXCISION OF STOMACH, PYLORUS, ENDO, DIAG 05/28/2018 [id number] CONTROL BLEEDING IN GASTROINTESTINAL TRA 01/28/2019 Results Test Result Range Complete blood count [...] RED CELLS LEUKO REDUCED AS1 TRANSFUSED 02/10/182042 NRG Blood type T Indirect antibody screen panel - 02/10/18 19:23 ABO+Rh group AP NRG Transfusion band number [id number] NRG Blood group antibody screen NEGATIVE NRG [...] ABO+Rh group AP NRG Transfusion band number [id number] Blood group antibody screen NEGATIVE NRG [...] RED CELLS LEUKO REDUCED AS1 TRANSFUSED 01/26/192035 [facility] Blood type T Indirect antibody screen panel - 01/26/19 19:25 ABO+Rh group AP [facility] Transfusion band number [id number] [facility] Blood group antibody screen NEGATIVE [facility] Serum or plasma lithium measurement (moles/volume) - [...] 02/02/19 15:55 RED CELLS LEUKO REDUCED AS1 TRANSFUSED 02/02/19 1708 NR Blood type T Indirect antibody screen panel - 02/02/19 15:55 ABO+Rh group AP NRG Transfusion band number [id number] Blood group antibody screen NEGATIVE NR Complete blood count (CBC) with automated white blood cell (WBC) differential - 02/03/19 11:11 Blood leukocytes automated count (number/volume) 7.6 10*3/uL 4.3-11.0 Blood erythrocytes automated count (number/volume) 2.85 10*6/uL 4.35-5.85 Venous blood hemoglobin measurement (mass/volume) 8.6 g/dL 11.5-16.0 Blood hematocrit (volume fraction) 26 % 35-52 Automated erythrocyte mean corpuscular volume 92 [foz_us] 80-99 Automated erythrocyte mean corpuscular hemoglobin (mass per erythrocyte) 30 pg 25-34 Automated erythrocyte mean corpuscular hemoglobin concentration measurement (mass/volume) 33 g/dL 32-36 Automated erythrocyte distribution width ratio 18.3 % 10.0- 14.5 Automated blood platelet count (count/volume) 292 10*3/uL 130-400 Automated blood platelet mean volume measurement 10.7 [foz_us] 7.4-10.4 Automated blood neutrophils/100 leukocytes 81 % 42-75 Automated blood lymphocytes/100 leukocytes 10 % 12-44 Blood monocytes/100 leukocytes 7 % 0-12 Automated blood eosinophils/100 leukocytes 2 % 0-10 Automated blood basophils/100 leukocytes 1 % 0-10 Blood neutrophils automated count (number/volume) 6.2 10*3 1.8-7.8 Blood lymphocytes automated count (number/volume) 0.8 10*3 1.0-4.0 Blood monocytes automated count (number/volume) 0.5 10*3 0.0- 1.0 Automated eosinophil count 0.1 10*3/uL 0.0-0.3 Automated blood basophil count (count/volume) 0.0 10*3/uL 0.0-0.1 Complete blood count (CBC) with automated white blood cell (WBC) differential - 02/04/19 07:05 Blood leukocytes automated count (number/volume) 7.6 10*3/uL 4.3-11.0 Blood erythrocytes automated count (number/volume) 2.74 10*6/uL 4.35-5.85 Venous blood hemoglobin measurement (mass/volume) 8.1 g/dL 11.5-16.0 Blood hematocrit (volume fraction) 25 % 35-52 Automated erythrocyte mean corpuscular volume 92 [foz_us] 80-99 Automated erythrocyte mean corpuscular hemoglobin (mass per erythrocyte) 30 pg 25-34 Automated erythrocyte mean corpuscular hemoglobin concentration measurement (mass/volume) 32 g/dL 32-36 Automated erythrocyte distribution width ratio 18.3 % 10.0- 14.5 Automated blood platelet count (count/volume) 296 10*3/uL 130-400 Automated blood platelet mean volume measurement 10.2 [foz_us] 7.4-10.4 Automated blood neutrophils/100 leukocytes 76 % 42-75 Automated blood lymphocytes/100 leukocytes 12 % 12-44 Blood monocytes/100 leukocytes 11 % 0-12 Automated blood eosinophils/100 leukocytes 2 % 0-10 Automated blood basophils/100 leukocytes 0 % 0-10 Blood neutrophils automated count (number/volume) 5.7 10*3 1.8-7.8 Blood lymphocytes automated count (number/volume) 0.9 10*3 1.0-4.0 Blood monocytes automated count (number/volume) 0.8 10*3 0.0- 1.0 Automated eosinophil count 0.2 10*3/uL 0.0-0.3 Automated blood basophil count (count/volume) 0.0 10*3/uL 0.0-0.1 Encounters ACCT No. Visit Date/Time Discharge Status Pt. Type Provider Facility Loc./Unit Complaint [id number] 02/02/2019 15:10:00 02/04/2019 12:40:00 DIS Inpatient LORIE YODER MD [facility] 4TH ANEMIA [id number] 02/02/2019 14:12:00 02/02/2019 23:59:59 CLS Outpatient WALDEMAR GUZMÁN DO [facility] LAB ANEMIA [id number] 01/26/2019 21:30:00 01/29/2019 18:47:00 DIS Outpatient LORIE YODER MD [facility] 4TH GI BLEED,SEVERE ANEMIA [id number] 01/12/2019 13:22:00 01/12/2019 23:59:59 CLS Outpatient LUCIANA GERARDO [facility] ONC [id number] 01/07/2019 16:20:00 01/10/2019 13:40:00 DIS Inpatient LORIE YODER MD [facility] 4TH CHF,HYPOXIA [id number] 11/16/2018 13:43:00 12/30/2018 00:01:00 DIS Outpatient LUCIANA GERARDO [facility] ONC [id number] 07/07/2018 14:49:00 08/30/2018 00:01:00 DIS Outpatient LUCIANA GERARDO [facility] ONC [id number] 05/29/2018 13:54:00 05/31/2018 00:01:00 DIS Outpatient LUCIANA GERARDO [facility] ONC [id number] 05/25/2018 16:21:00 05/28/2018 15:45:00 DIS Inpatient LORIE YODER MD [facility] 4TH IRON DEFICIENCY ANEMIA [id number] 03/09/2018 09:53:00 03/09/2018 13:58:00 DIS Outpatient MANUEL LORD MD [facility] ENDO BLACK STOOLS/GERD [id number] 03/02/2018 06:07:00 03/02/2018 10:55:00 DIS Outpatient MANUEL LORD MD [facility] PREOP COLONOSCOPY/EGD [id number] 02/10/2018 21:08:00 02/11/2018 17:08:00 DIS Inpatient PARESH POWELL, LORIE Martinez [facility] 4TH ACUTE BLOOD LOSS ANEMIA [id number] 10/22/2017 11:00:00 10/22/2017 23:59:59 CLS Preadmit ROSALIE POWELL FACC, ALI FACP CCDS [facility] CARD I25.10 CAD [id number] 10/21/2017 11:24:00 10/21/2017 23:59:59 CLS Outpatient ROSALIE POWELL FACC, ALI FACP CCDS [facility] CARD I25.10 CAD [id number] 10/26/2015 10:52:00 10/26/2015 23:59:59 CLS Outpatient NEELA POWELL, RAHEEL Gastelum [facility] RAD POOR SPEECH, ASSYMETRICAL HEARING LOSS [id number] 08/31/2015 11:20:00 08/31/2015 15:18:00 DIS Emergency ESTELITA RAO SAUSAGE LINKER [facility] ER L SIDE FACIAL DROOPING [id number] 08/10/2015 16:20:00 08/14/2015 11:51:00 DIS Inpatient ELIZABETH MALDONADO DO [facility] 4TH CHF [id number] 08/10/2015 14:16:00 08/10/2015 23:59:59 CLS Outpatient ELIZABETH MALDONADO DO [facility] RAD HYPOXIA [id number] 06/22/2015 07:58:00 06/22/2015 23:59:59 CLS Outpatient ROSALIE POWELL FACC, ALI FACP CCDS [facility] CARD DYSPNEA,CAD,AFIB [id number] 06/09/2015 09:06:00 06/09/2015 23:59:59 CLS Outpatient ROSALIE POWELL FACC, ALI FACP CCDS [facility] CARD AFIB [id number] 02/10/2015 11:38:00 02/17/2015 12:29:00 DIS Outpatient EILZABETH MALDONADO DO [facility] CR STENT 07/2014 [id number] 02/13/2015 10:00:00 02/13/2015 23:59:59 CLS Preadmit ELIZABETH MALDONADO DO [facility] CR STENT 07/2014 [id number] 02/08/2015 11:33:00 02/12/2015 00:01:00 DIS Outpatient ELIZABETH MALDONADO DO [facility] CR STENT 07/2014 [id number] 07/19/2014 07:10:00 07/20/2014 12:30:00 DIS Outpatient ROSALIE POWELL FACC, SINDY SCHREIBER CCDS [facility] CATH ABNORMAL STRESS,CAD [id number] 07/07/2014 08:03:00 07/07/2014 23:59:59 CLS Outpatient BAIJACOB HERNANDEZP [facility] CARD PAF,DYPSNEA,HTN,HLP [id number] 07/05/2014 09:52:00 07/05/2014 23:59:59 CLS Outpatient JACOB PARSONSP [facility] CARD PAF,DYPSNEA,HTN,HLP [id number] 10/27/2011 10:17:00 Document Registration [id number] 06/13/2011 11:03:00 Document Registration [id number] 06/06/2011 10:25:00 Document Registration [id number] 05/23/2011 08:41:00 Document Registration [id number] 05/09/2011 14:46:00 Document Registration [id number] 05/07/2011 09:28:00 Document Registration [id number] 01/18/2010 08:22:00 Document Registration [id number] 01/04/2010 10:38:00 Document Registration
[2019-02-07] MEDS ORDERED: morphine INJ 10 MG/ML 1ML (SYR OR VIAL) ONE (14:22)
[2019-02-07] MEDS ORDERED: morphine INJ 10 MG/ML 1ML (SYR OR VIAL) IVP STA (14:25)
[2019-02-07 14:42] LABS: BASOPHILS % (AUTO) 0 % (0-10); EOSINOPHILS # (AUTO) 0.1 10^3/uL (0.0-0.3); EOSINOPHILS % (AUTO) 2 % (0-10); HEMATOCRIT 30 % (35-52); HEMOGLOBIN 9.4 G/DL (11.5-16.0); LYMPHOCYTES # (AUTO) 0.6 X 10^3 (1.0-4.0); LYMPHOCYTES % (AUTO) 9 % (12-44); MEAN CORPUSCULAR HEMOGLOBIN 29 PG (25-34); MEAN CORPUSCULAR HGB CONC 31 G/DL (32-36); MEAN CORPUSCULAR VOLUME 92 FL (80-99); MEAN PLATELET VOLUME 10.5 FL (7.4-10.4); MONOCYTES # (AUTO) 0.6 X 10^3 (0.0-1.0); MONOCYTES % (AUTO) 9 % (0-12); NEUTROPHILS # (AUTO) 5.5 X 10^3 (1.8-7.8); NEUTROPHILS % (AUTO) 80 % (42-75); PLATELET COUNT 369 10^3/uL (130-400); WHITE BLOOD COUNT 6.9 10^3/uL (4.3-11.0)
--- NOTE | 2019-02-07 14:54 | Diagnostic Imaging Report ---
EXAM: CHEST 1 VIEW, AP/PA ONLY INDICATION: Chest and back pain. Shortness of air. Left arm pain. COMPARISON: Chest radiograph 01/26/2019. FINDINGS: Cardiomegaly. Normal central pulmonary vascularity. Tiny left pleural effusion or thickening. No dense consolidation. No pneumothorax. Calcified aorta. No acute osseous findings. IMPRESSION: Stable cardiomegaly with normal central pulmonary vascularity. No acute cardio pulmonary findings. Dictated by: Dictated on workstation # [id number]
[2019-02-07 15:06] LABS: INR 1.1 (0.8-1.4); PROTHROMBIN TIME PATIENT 14.3 SEC (12.2-14.7)
[2019-02-07 15:14] LABS: ALANINE AMINOTRANSFERASE 12 U/L (0-55); ALBUMIN 3.7 GM/DL (3.2-4.5); ALKALINE PHOSPHATASE 45 U/L (40-136); BILIRUBIN,TOTAL 0.6 MG/DL (0.1-1.0); BUN/CREATININE RATIO 14; CALCIUM 8.7 MG/DL (8.5-10.1); CARBON DIOXIDE 23 MMOL/L (21-32); CHLORIDE 103 MMOL/L (98-107); CREATININE SERUM 1.08 MG/DL (0.60-1.30); GFR ESTIMATED 49; GLUCOSE 122 MG/DL (70-105); MAGNESIUM 1.2 MG/DL (1.8-2.4); SODIUM 140 MMOL/L (135-145); TOTAL PROTEIN 6.4 GM/DL (6.4-8.2)
--- NOTE | 2019-02-07 16:48 | ED Chest Pain ---
General Chief Complaint: Chest Pain Stated Complaint: CHEST PAIN Nursing Triage Note: Pt needed assistance from car with wheelchair to ED. 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 Pt reports pain radiates from front of chest into back and down L arm. Pt reports recently being discharged from the hospital for GI bleed. Pt reports pain as severe. Nursing Sepsis Screen: No Definite Risk Source: patient Exam Limitations: no limitations History of Present Illness Date Seen by Provider: Feb 07, 2019 Time Seen by Provider: 14:20 Initial Comments 78-year-old female who presents to the emergency room with complaints of chest pain that began 1 hour prior to arrival while getting her clothes out of a dryer. She reports that she has chest pain that radiates from her chest through to her back and down to her left arm. She reports that she was recently admitted to the hospital for a GI bleed. She denies shortness of breath lightheadedness, dizziness. Timing/Duration: 1 hour Location: substernal Radiation: arms (left arm), back Activities at Onset: activity (laundry) Prior CP/Workup: heart attack ASA po MUSIC PUBLISHER: No NTG SL MUSIC PUBLISHER: No Associated Symptoms: denies symptoms Allergies and Home Medications Allergies Coded Allergies: NKANo Known Allergies (Verified Allergy, Unknown, 03/26/06) Home Medications Amlodipine Besylate 5 Mg Tablet, 5 MG PO DAILY, (Reported) Carvedilol 25 Mg Tablet, 25 MG PO BID, (Reported) Cholecalciferol (Vitamin D3) 1,000 Unit Capsule, 1,000 UNIT PO DAILY, (Reported) Famotidine 20 Mg Tablet, 20 MG PO DAILY Prescribed by: JENNIFER WASHINGTON on 01/29/19 1041 Furosemide 80 Mg Tablet, 80 MG PO DAILY, (Reported) Gabapentin 300 Mg Capsule, 300 MG PO 2000,2300, (Reported) Glimepiride 4 Mg Tablet, 4 MG PO BID PRN for BLOOD SUGAR >200, (Reported) Losartan Potassium 100 Mg Tablet, 100 MG PO DAILY, (Reported) Lovastatin 20 Mg Tablet, 20 MG PO HS, (Reported) Magnesium Oxide 400 Mg Tablet, 400 MG PO BID Prescribed by: MYRANDA POSADA on 02/07/19 1749 Metformin HCl 1,000 Mg Tablet, 1,000 MG PO BID, (Reported) Mineral Oil/Petrolatum,White 3.5 Gm Oint...g., OU HS PRN for DRY EYES, (Reported) Mitchell 3 Polyunsat Fatty Acids 1,000 Mg Cap, 1,000 MG PO DAILY, (Reported) Pantoprazole Sodium 40 Mg Tablet.dr, 40 MG PO DAILY, (Reported) Polyvinyl Alcohol/Povidone 15 Ml Drops, 1-2 DROPS OU QID PRN for DRY EYES, (Reported) Potassium Chloride 10 Meq Capsule.er, 10 MEQ PO DAILY, (Reported) Patient Home Medication List Home Medication List Reviewed: Yes Review of Systems Review of Systems Constitutional: see HPI; No chills, No fever Cardiovascular: See HPI, Chest Pain All Other Systems Reviewed Negative Unless Noted: Yes Past Zzphhen-Zaajzz-Cgjfqh Hx Patient Social History Alcohol Use: Denies Use Recreational Drug Use: No Type Used: Cigarettes Former Smoker, Quit: Feb 11, 1985 2nd Hand Smoke Exposure: No Recent Foreign Travel: No Contact w/Someone Who Travel: No Recent Infectious Disease Expo: No Recent Hopitalizations: No Immunizations Up To Date Tetanus Booster (TDap): Unknown PED Vaccines UTD: No Date of Pneumonia Vaccine: Jul 19, 2011 Date of Influenza Vaccine: May 28, 2018 Seasonal Allergies Seasonal Allergies: No Past Medical History Surgeries: Yes (cyst from breast bone removed, carpal tunnel, cardiac stents) Coronary Stent Respiratory: Yes COPD Currently Using CPAP: No Currently Using BIPAP: No Cardiac: Yes Atrial Fibrillation, Cardiomyopathy, Heart Attack, High Cholesterol Neurological: Yes Dementia, Neuropathy Reproductive Disorders: No Female 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 Sexually Transmitted Disease: No HIV/AIDS: No Genitourinary: No Gastrointestinal: Yes Gastroesophageal Reflux, Gastrointestinal Bleed Musculoskeletal: Yes Arthritis Endocrine: Yes Diabetes, Non-Insulin dep HEENT: Yes Cataract Loss of Vision: Denies Hearing Impairment: Denies Cancer: No Psychosocial: Yes Depression Integumentary: No Blood Disorders: Yes (anemia) Adverse Reaction/Blood Tranf: No Family Medical History Cardiovascular disease 19 FATHER 19 MOTHER FH: stroke FHx: diabetes mellitus Heart Disease, Diabetes, Hypertension Physical Exam Vital Signs Vital Signs - First Documented 02/07/19 02/07/19 14:03 14:29 Temp 98.2 Pulse 82 Resp 16 B/P (MAP) 107/66 (80) Pulse Ox 95 O2 Delivery Room Air O2 Flow Rate 2.00 Capillary Refill : Less Than 3 Seconds Height, Weight, BMI Height: 5'1.50" Weight: 191lbs. 8.0oz. 86.097386mh; 36.9 BMI Method:Stated General Appearance: No Apparent Distress, WD/WN HEENT: PERRL/EOMI, TMs Normal, Normal ENT Inspection, Pharynx Normal Respiratory: Chest Non Tender, Lungs Clear, Normal Breath Sounds, No Accessory Muscle Use, No Respiratory Distress Cardiovascular: Regular Rate, Rhythm, No Edema, No Gallop, No JVD, No Murmur, Normal Peripheral Pulses Extremity: Normal Capillary Refill Neurologic/Psychiatric: Alert, Oriented x3, Normal Mood/Affect Skin: Normal Color, Warm/Dry Progress/Results/Core Measures Results/Orders Lab Results Laboratory Tests Test 02/07/19 14:17 02/07/19 16:15 Range/Units White Blood Count 6.9 4.3-11.0 10^3/uL Red Blood Count 3.26 L 4.35-5.85 10^6/uL Hemoglobin 9.4 L 11.5-16.0 G/DL Hematocrit 30 L 35-52 % Mean Corpuscular Volume 92 80-99 FL Mean Corpuscular Hemoglobin 29 25-34 PG Mean Corpuscular Hemoglobin Concent 31 L 32-36 G/DL Red Cell Distribution Width 17.0 H 10.0-14.5 % Platelet Count 369 130-400 10^3/uL Mean Platelet Volume 10.5 H 7.4-10.4 FL Neutrophils (%) (Auto) 80 H 42-75 % Lymphocytes (%) (Auto) 9 L 12-44 % Monocytes (%) (Auto) 9 0-12 % Eosinophils (%) (Auto) 2 0-10 % Basophils (%) (Auto) 0 0-10 % Neutrophils # (Auto) 5.5 1.8-7.8 X 10^3 Lymphocytes # (Auto) 0.6 L 1.0-4.0 X 10^3 Monocytes # (Auto) 0.6 0.0-1.0 X 10^3 Eosinophils # (Auto) 0.1 0.0-0.3 10^3/uL Basophils # (Auto) 0.0 0.0-0.1 10^3/uL Prothrombin Time 14.3 12.2-14.7 SEC INR Comment 1.1 0.8-1.4 Activated Partial Thromboplast Time 27 24-35 SEC Sodium Level 140 135-145 MMOL/L Potassium Level 4.0 3.6-5.0 MMOL/L Chloride Level 103 98-107 MMOL/L Carbon Dioxide Level 23 21-32 MMOL/L Anion Gap 14 5-14 MMOL/L Blood Urea Nitrogen 15 7-18 MG/DL Creatinine 1.08 0.60-1.30 MG/DL Estimat Glomerular Filtration Rate 49 BUN/Creatinine Ratio 14 Glucose Level 122 H 70-105 MG/DL Calcium Level 8.7 8.5-10.1 MG/DL Corrected Calcium 8.9 8.5-10.1 MG/DL Magnesium Level 1.2 L 1.8-2.4 MG/DL Total Bilirubin 0.6 0.1-1.0 MG/DL Aspartate Amino Transf (AST/SGOT) 15 5-34 U/L Alanine Aminotransferase (ALT/SGPT) 12 0-55 U/L Alkaline Phosphatase 45 40-136 U/L Myoglobin 44.0 10.0-92.0 NG/ML Troponin I < 0.028 0.038 H <0.028 NG/ML Total Protein 6.4 6.4-8.2 GM/DL Albumin 3.7 3.2-4.5 GM/DL My Orders Orders - MYRANDA POSADA Morphine Injection (Morphine Injection (02/07/19 14:25) Morphine Injection (Morphine Injection (02/07/19 14:22) Troponin I (02/07/19 16:04) Magnesium Oxide Tablet (Mag Ox Tablet) (02/07/19 17:15) Magnesium 1 Gm/100 Ml Ivpb (Magnesium Gardner (02/07/19 17:15) Medications Given in ED Vital Signs/I&O 02/07/19 02/07/19 02/07/19 02/07/19 14:03 14:03 14:29 18:01 Temp 98.2 98.2 Pulse 82 73 Resp 16 16 B/P (MAP) 107/66 (80) 140/74 (96) Pulse Ox 95 98 99 O2 Delivery Room Air Room Air Room Air Room Air O2 Flow Rate 2.00 2.00 Blood Pressure Mean: 80 Progress Progress Note : Time: 17:40 Progress Note I have seen and evaluated the patient. I've informed her of her laboratory findings. I have discussed the case with Dr. Zepeda at this time. He is now concerned with the change in her troponin because it is so minute. He instructs the patient to follow-up with Dr. Dukes's office tomorrow for further evaluation. The patient agrees with plan of care, plans for discharge, return precautions were given. Initial ECG Impression Date: Feb 07, 2019 Initial ECG Impression Time: 14:12 Initial ECG Rate: 64 Initial ECG Rhythm: A Fib/Flutter Initial ECG Impression: Normal Initial ECG Comparisson: Unchanged Comment Reviewed by Dr. Jackson and agrees with above. Departure Impression Primary Impression: Chest pain Disposition: HOME, SELF-CARE Condition: Stable/Unchanged Departure-Patient Inst. Decision time for Depature: 17:47 Referrals: ELIZABETH KYLE DO (PCP/Family) Primary Care Physician Patient Instructions: Chest Pain (DC) Add. Discharge Instructions: Return back to the emergency room if her chest pain returns. Take medications as previously prescribed. Take new magnesium prescription as prescribed. Call Dr. Blandon's office first thing tomorrow morning for an appointment time to be seen. Keep your appointment as scheduled with Dr. Kyle's office tomorrow morning. Return back to the emergency room for worsening symptoms or concerns as needed. All discharge instructions reviewed with patient and/or family. Voiced understanding. Scripts Magnesium Oxide (Magox 400) 400 Mg Tablet 400 MG PO BID for 7 Days, #14 TAB Prov: MYRANDA POSADA 02/07/19 MYRANDA POSADA Feb 07, 2019 16:48
[2019-02-07] MEDS ORDERED: MAGNESIUM OXIDE (MAG-OX)400 MG TAB PO ONE (17:15)
[2019-02-07] MEDS ORDERED: MAGNESIUM 1 GM/100 ML IVPB 100 ML IV ONE (17:15)
[2019-02-07] MEDS ORDERED: MAGN400T29 PO (17:49)
[2019-02-07 18:01] VITALS: BP 140/74
== END 2019-02-07 18:01 | disposition home or self-care (01) ==
LOC: EDUNIT# 14:03 → ER 14:04
DX: R07.81 Pleurodynia (principal); J44.9 Chronic obstructive pulmonary disease, unspecified; I48.91 Unspecified atrial fibrillation; I42.9 Cardiomyopathy, unspecified; I25.2 Old myocardial infarction; E78.00 Pure hypercholesterolemia, unspecified; F03.90 Unspecified dementia, unspecified severity, without behavioral disturbance, psychotic disturbance, mood disturbance, and anxiety; E11.40 Type 2 diabetes mellitus with diabetic neuropathy, unspecified; K21.9 Gastro-esophageal reflux disease without esophagitis; D64.9 Anemia, unspecified; F32.9 Major depressive disorder, single episode, unspecified; Z87.19 Personal history of other diseases of the digestive system; Z82.49 Family history of ischemic heart disease and other diseases of the circulatory system; Z79.4 Long term (current) use of insulin; Z87.891 Personal history of nicotine dependence; Z95.5 Presence of coronary angioplasty implant and graft
CPT/HCPCS: 36415; 71045; 80053; 83735; 83874; 84484; 85025; 85610; 85730; 93005; 93041

== ENCOUNTER 2019-03-25 13:45 | Outpatient (RCR) | payer MEDICARE, MEDICAID ==
[2019-01-07 13:14] LABS: BASOPHILS % (AUTO) 1 % (0-10); EOSINOPHILS # (AUTO) 0.1 10^3/uL (0.0-0.3); EOSINOPHILS % (AUTO) 1 % (0-10); HEMATOCRIT 38 % (35-52); HEMOGLOBIN 11.5 G/DL (11.5-16.0); LYMPHOCYTES # (AUTO) 0.5 X 10^3 (1.0-4.0); LYMPHOCYTES % (AUTO) 7 % (12-44); MEAN CORPUSCULAR HEMOGLOBIN 27 PG (25-34); MEAN CORPUSCULAR HGB CONC 30 G/DL (32-36); MEAN CORPUSCULAR VOLUME 89 FL (80-99); MEAN PLATELET VOLUME 10.5 FL (7.4-10.4); MONOCYTES # (AUTO) 0.4 X 10^3 (0.0-1.0); MONOCYTES % (AUTO) 6 % (0-12); NEUTROPHILS # (AUTO) 5.6 X 10^3 (1.8-7.8); NEUTROPHILS % (AUTO) 85 % (42-75); PLATELET COUNT 329 10^3/uL (130-400); RED CELL DISTRIBUTION WIDTH 19.4 % (10.0-14.5); WHITE BLOOD COUNT 6.6 10^3/uL (4.3-11.0)
[2019-01-07 13:32] LABS: ALBUMIN 3.9 GM/DL (3.2-4.5); BILIRUBIN,TOTAL 0.9 MG/DL (0.1-1.0); CALCIUM 9.7 MG/DL (8.5-10.1); CREATININE SERUM 1.14 MG/DL (0.60-1.30); POTASSIUM 4.3 MMOL/L (3.6-5.0)
[2019-02-11 13:32] LABS: BASOPHILS % (AUTO) 0 % (0-10); EOSINOPHILS # (AUTO) 0.2 10^3/uL (0.0-0.3); EOSINOPHILS % (AUTO) 2 % (0-10); HEMATOCRIT 30 % (35-52); HEMOGLOBIN 9.3 G/DL (11.5-16.0); LYMPHOCYTES # (AUTO) 0.9 X 10^3 (1.0-4.0); LYMPHOCYTES % (AUTO) 12 % (12-44); MEAN CORPUSCULAR HEMOGLOBIN 29 PG (25-34); MEAN CORPUSCULAR HGB CONC 31 G/DL (32-36); MEAN CORPUSCULAR VOLUME 93 FL (80-99); MEAN PLATELET VOLUME 10.5 FL (7.4-10.4); MONOCYTES # (AUTO) 0.6 X 10^3 (0.0-1.0); MONOCYTES % (AUTO) 9 % (0-12); NEUTROPHILS # (AUTO) 5.6 X 10^3 (1.8-7.8); NEUTROPHILS % (AUTO) 77 % (42-75); PLATELET COUNT 398 10^3/uL (130-400); RED CELL DISTRIBUTION WIDTH 16.8 % (10.0-14.5); WHITE BLOOD COUNT 7.3 10^3/uL (4.3-11.0)
[2019-02-11 13:51] LABS: ALBUMIN 3.7 GM/DL (3.2-4.5); BILIRUBIN,TOTAL 0.4 MG/DL (0.1-1.0); CALCIUM 8.6 MG/DL (8.5-10.1); CREATININE SERUM 1.16 MG/DL (0.60-1.30); POTASSIUM 4.4 MMOL/L (3.6-5.0); TOTAL PROTEIN 6.3 GM/DL (6.4-8.2)
[~2019-03-25 13:45] MED LIST changes: +FERRIC CARBOXYMALTOSE (CANCER) 750 MG in NS (IVPB) CANCER CENTER 250 ML IV SCH; +MAGN400T29 PO; +MIDAZOLAM 2 MG/2 ML (VERSED) VIAL ONE; +proPOfol 200 MG/20 ML (DIPRIVAN) VIAL IV ONE
[2019-03-25 14:19] LABS: BASOPHILS % (AUTO) 0 % (0-10); EOSINOPHILS # (AUTO) 0.2 10^3/uL (0.0-0.3); EOSINOPHILS % (AUTO) 3 % (0-10); HEMATOCRIT 39 % (35-52); HEMOGLOBIN 11.8 G/DL (11.5-16.0); LYMPHOCYTES # (AUTO) 0.8 X 10^3 (1.0-4.0); LYMPHOCYTES % (AUTO) 11 % (12-44); MEAN CORPUSCULAR HEMOGLOBIN 28 PG (25-34); MEAN CORPUSCULAR HGB CONC 30 G/DL (32-36); MEAN CORPUSCULAR VOLUME 95 FL (80-99); MEAN PLATELET VOLUME 10.7 FL (7.4-10.4); MONOCYTES # (AUTO) 0.4 X 10^3 (0.0-1.0); MONOCYTES % (AUTO) 5 % (0-12); NEUTROPHILS # (AUTO) 6.2 X 10^3 (1.8-7.8); NEUTROPHILS % (AUTO) 81 % (42-75); PLATELET COUNT 257 10^3/uL (130-400); RED CELL DISTRIBUTION WIDTH 22.4 % (10.0-14.5); WHITE BLOOD COUNT 7.6 10^3/uL (4.3-11.0)
[2019-03-25 14:39] LABS: BILIRUBIN,TOTAL 0.5 MG/DL (0.1-1.0); CALCIUM 9.5 MG/DL (8.5-10.1); CREATININE SERUM 1.26 MG/DL (0.60-1.30); POTASSIUM 4.5 MMOL/L (3.6-5.0); TOTAL PROTEIN 7.1 GM/DL (6.4-8.2)
== END 2019-04-07 | disposition home or self-care (01) ==
LOC: ONC 13:45
PROVIDERS: ATTEND Internal Medicine Hematology & Oncology
DX: D64.9 Anemia, unspecified (principal)
CPT/HCPCS: 36415; 80053; 82728; 85025; 96365; 99213

== ENCOUNTER 2019-07-06 13:44 | Outpatient (RCR) | payer MEDICARE, MEDICAID ==
[~2019-07-06 13:44] MED LIST changes: -FERRIC CARBOXYMALTOSE (CANCER) 750 MG in NS (IVPB) CANCER CENTER 250 ML IV SCH; -MIDAZOLAM 2 MG/2 ML (VERSED) VIAL ONE; -proPOfol 200 MG/20 ML (DIPRIVAN) VIAL IV ONE
[2019-07-06 14:04] LABS: BASOPHILS % (AUTO) 1 % (0-10); EOSINOPHILS # (AUTO) 0.1 10^3/uL (0.0-0.3); EOSINOPHILS % (AUTO) 2 % (0-10); HEMATOCRIT 41 % (35-52); LYMPHOCYTES % (AUTO) 11 % (12-44); MEAN CORPUSCULAR HEMOGLOBIN 30 PG (25-34); MEAN CORPUSCULAR HGB CONC 31 G/DL (32-36); MEAN CORPUSCULAR VOLUME 96 FL (80-99); MONOCYTES # (AUTO) 0.7 X 10^3 (0.0-1.0); MONOCYTES % (AUTO) 7 % (0-12); NEUTROPHILS # (AUTO) 7.1 X 10^3 (1.8-7.8); NEUTROPHILS % (AUTO) 80 % (42-75); PLATELET COUNT 238 10^3/uL (130-400); RED CELL DISTRIBUTION WIDTH 15.9 % (10.0-14.5); WHITE BLOOD COUNT 8.9 10^3/uL (4.3-11.0)
[2019-07-06 14:24] LABS: ALBUMIN 4.2 GM/DL (3.2-4.5); BILIRUBIN,TOTAL 0.4 MG/DL (0.1-1.0); CALCIUM 9.6 MG/DL (8.5-10.1); CREATININE SERUM 1.45 MG/DL (0.60-1.30); POTASSIUM 4.6 MMOL/L (3.6-5.0); TOTAL PROTEIN 7.3 GM/DL (6.4-8.2)
== END 2019-07-07 | disposition home or self-care (01) ==
LOC: ONC 13:44
PROVIDERS: ATTEND Internal Medicine Hematology & Oncology
DX: D64.9 Anemia, unspecified (principal)
CPT/HCPCS: 36415; 80053; 82728; 85025; 99213

== ENCOUNTER 2019-10-05 14:28 | Outpatient (RCR) | payer MEDICARE, MEDICAID ==
[2019-09-29 14:10] LABS: BASOPHILS % (AUTO) 0 % (0-10); EOSINOPHILS # (AUTO) 0.1 10^3/uL (0.0-0.3); EOSINOPHILS % (AUTO) 2 % (0-10); HEMATOCRIT 41 % (35-52); LYMPHOCYTES # (AUTO) 0.9 X 10^3 (1.0-4.0); LYMPHOCYTES % (AUTO) 10 % (12-44); MEAN CORPUSCULAR HEMOGLOBIN 31 PG (25-34); MEAN CORPUSCULAR HGB CONC 32 G/DL (32-36); MEAN CORPUSCULAR VOLUME 97 FL (80-99); MEAN PLATELET VOLUME 11.2 FL (7.4-10.4); MONOCYTES # (AUTO) 0.5 X 10^3 (0.0-1.0); MONOCYTES % (AUTO) 6 % (0-12); NEUTROPHILS # (AUTO) 7.1 X 10^3 (1.8-7.8); NEUTROPHILS % (AUTO) 82 % (42-75); PLATELET COUNT 236 10^3/uL (130-400); RED CELL DISTRIBUTION WIDTH 15.5 % (10.0-14.5); WHITE BLOOD COUNT 8.6 10^3/uL (4.3-11.0)
[2019-09-29 14:35] LABS: ALBUMIN 4.1 GM/DL (3.2-4.5); BILIRUBIN,TOTAL 0.4 MG/DL (0.1-1.0); CALCIUM 9.3 MG/DL (8.5-10.1); CREATININE SERUM 1.58 MG/DL (0.60-1.30); POTASSIUM 4.3 MMOL/L (3.6-5.0); TOTAL PROTEIN 7.2 GM/DL (6.4-8.2)
[~2019-10-05 14:28] MED LIST changes: -GLIM1TAB PO; +GLIM1TAB2 PO; +GLIM4TAB3 PO
== END 2019-10-06 | disposition home or self-care (01) ==
LOC: ONC 14:28
PROVIDERS: ATTEND Internal Medicine Hematology & Oncology
DX: D50.9 Iron deficiency anemia, unspecified (principal); I25.10 Atherosclerotic heart disease of native coronary artery without angina pectoris; E11.22 Type 2 diabetes mellitus with diabetic chronic kidney disease; E78.5 Hyperlipidemia, unspecified; I12.9 Hypertensive chronic kidney disease with stage 1 through stage 4 chronic kidney disease, or unspecified chronic kidney disease; N18.3 Chronic kidney disease, stage 3 (moderate); I48.0 Paroxysmal atrial fibrillation; K29.51 Unspecified chronic gastritis with bleeding; B96.81 Helicobacter pylori [H. pylori] as the cause of diseases classified elsewhere; Z79.01 Long term (current) use of anticoagulants
CPT/HCPCS: 80053; 82728; 85025; 99213

== ENCOUNTER 2020-01-04 13:45 | Outpatient (RCR) | payer MEDICARE, MEDICAID ==
[2019-12-30 15:09] LABS: ALBUMIN 4.1 GM/DL (3.2-4.5); BILIRUBIN,TOTAL 0.4 MG/DL (0.1-1.0); CALCIUM 9.3 MG/DL (8.5-10.1); CREATININE SERUM 1.24 MG/DL (0.60-1.30); POTASSIUM 4.3 MMOL/L (3.6-5.0); TOTAL PROTEIN 7.4 GM/DL (6.4-8.2)
[2019-12-30 15:19] LABS: BASOPHILS # (AUTO) 0.1 10^3/uL (0.0-0.1); BASOPHILS % (AUTO) 1 % (0-10); EOSINOPHILS # (AUTO) 0.2 10^3/uL (0.0-0.3); EOSINOPHILS % (AUTO) 2 % (0-10); HEMATOCRIT 40 % (35-52); HEMOGLOBIN 12.7 G/DL (11.5-16.0); LYMPHOCYTES # (AUTO) 0.9 X 10^3 (1.0-4.0); LYMPHOCYTES % (AUTO) 11 % (12-44); MEAN CORPUSCULAR HEMOGLOBIN 30 PG (25-34); MEAN CORPUSCULAR HGB CONC 32 G/DL (32-36); MEAN CORPUSCULAR VOLUME 95 FL (80-99); MEAN PLATELET VOLUME 11.4 FL (7.4-10.4); MONOCYTES # (AUTO) 0.6 X 10^3 (0.0-1.0); MONOCYTES % (AUTO) 7 % (0-12); NEUTROPHILS # (AUTO) 6.8 X 10^3 (1.8-7.8); NEUTROPHILS % (AUTO) 80 % (42-75); PLATELET COUNT 263 10^3/uL (130-400); RED CELL DISTRIBUTION WIDTH 16.2 % (10.0-14.5); WHITE BLOOD COUNT 8.6 10^3/uL (4.3-11.0)
[~2020-01-04 13:45] MED LIST changes: -CALC600T12 PO; +CALC600T14 PO; -GLIM1TAB2 PO; +GLIM1TAB4 PO; -GLIM4TAB3 PO; +GLIM4TAB5 PO
== END 2020-03-29 | disposition home or self-care (01) ==
LOC: ONC 13:45
PROVIDERS: ATTEND Internal Medicine Hematology & Oncology
DX: D50.0 Iron deficiency anemia secondary to blood loss (chronic) (principal); I25.10 Atherosclerotic heart disease of native coronary artery without angina pectoris; E11.22 Type 2 diabetes mellitus with diabetic chronic kidney disease; E78.5 Hyperlipidemia, unspecified; I12.9 Hypertensive chronic kidney disease with stage 1 through stage 4 chronic kidney disease, or unspecified chronic kidney disease; N18.3 Chronic kidney disease, stage 3 (moderate); I48.0 Paroxysmal atrial fibrillation; K29.51 Unspecified chronic gastritis with bleeding; B96.81 Helicobacter pylori [H. pylori] as the cause of diseases classified elsewhere; Z79.01 Long term (current) use of anticoagulants
CPT/HCPCS: 80053; 82728; 85025; 99213

== ENCOUNTER → 2020-04-20 | Outpatient (CLI) | payer MEDICARE, MEDICAID | LOC: LAB 13:37 | PROVIDERS: ATTEND Internal Medicine | DX: E11.9 Type 2 diabetes mellitus without complications (principal) | CPT/HCPCS: 36415; 83036; 84550 ==

== ENCOUNTER 2020-04-24 16:25 | Outpatient (RCR) | payer MEDICARE, MEDICAID ==
[2020-04-20 13:42] LABS: BASOPHILS % (AUTO) 0 % (0-10); EOSINOPHILS # (AUTO) 0.2 10^3/uL (0.0-0.3); EOSINOPHILS % (AUTO) 2 % (0-10); HEMATOCRIT 40 % (35-52); HEMOGLOBIN 12.5 G/DL (11.5-16.0); LYMPHOCYTES # (AUTO) 0.8 X 10^3 (1.0-4.0); LYMPHOCYTES % (AUTO) 9 % (12-44); MEAN CORPUSCULAR HEMOGLOBIN 30 PG (25-34); MEAN CORPUSCULAR HGB CONC 32 G/DL (32-36); MEAN CORPUSCULAR VOLUME 94 FL (80-99); MEAN PLATELET VOLUME 10.7 FL (7.4-10.4); MONOCYTES # (AUTO) 0.7 X 10^3 (0.0-1.0); MONOCYTES % (AUTO) 7 % (0-12); NEUTROPHILS # (AUTO) 7.8 X 10^3 (1.8-7.8); NEUTROPHILS % (AUTO) 82 % (42-75); PLATELET COUNT 287 10^3/uL (130-400); WHITE BLOOD COUNT 9.5 10^3/uL (4.3-11.0)
[2020-04-20 14:07] LABS: BILIRUBIN,TOTAL 0.4 MG/DL (0.1-1.0); CALCIUM 9.3 MG/DL (8.5-10.1); CREATININE SERUM 1.03 MG/DL (0.60-1.30); POTASSIUM 4.1 MMOL/L (3.6-5.0); TOTAL PROTEIN 7.3 GM/DL (6.4-8.2)
[~2020-04-24 16:25] MED LIST changes: +AMLO-250 PO; -AMLO5TAB9 PO; +ASPI-1238 PO; -ASPI-983 PO; -CALC-6 PO; +CALC1TAB84 PO; -CALC600T14 PO; +CLC600T PO; -PANT40TA3 PO; +PANT40TA52 PO
[2020-05-27] MEDS ORDERED: ACHD5005 PO (19:22)
[2020-05-27] MEDS ORDERED: CEFD300C3 PO (19:22)
== END 2020-07-19 | disposition home or self-care (01) ==
LOC: ONC 16:25
PROVIDERS: ATTEND Internal Medicine Hematology & Oncology
DX: D50.0 Iron deficiency anemia secondary to blood loss (chronic) (principal); I25.10 Atherosclerotic heart disease of native coronary artery without angina pectoris; E11.22 Type 2 diabetes mellitus with diabetic chronic kidney disease; E78.5 Hyperlipidemia, unspecified; I12.9 Hypertensive chronic kidney disease with stage 1 through stage 4 chronic kidney disease, or unspecified chronic kidney disease; I48.0 Paroxysmal atrial fibrillation; K29.51 Unspecified chronic gastritis with bleeding; B96.81 Helicobacter pylori [H. pylori] as the cause of diseases classified elsewhere; Z79.01 Long term (current) use of anticoagulants
CPT/HCPCS: 80053; 82728; 85025; 99213

== ENCOUNTER → 2020-04-24 | Outpatient (CLI) | payer MEDICARE, MEDICAID | LOC: CARD 13:41 | PROVIDERS: ATTEND Nurse Practitioner Family | DX: I48.91 Unspecified atrial fibrillation (principal); I25.10 Atherosclerotic heart disease of native coronary artery without angina pectoris; I11.0 Hypertensive heart disease with heart failure; I50.32 Chronic diastolic (congestive) heart failure; E78.5 Hyperlipidemia, unspecified; I34.0 Nonrheumatic mitral (valve) insufficiency | CPT/HCPCS: 93306 ==

== ENCOUNTER → 2020-04-25 | Outpatient (CLI) | payer MEDICARE, MEDICAID ==
[~2020-04-25] VITALS: Ht 154 cm; Wt 92.0 kg
[~2020-04-25] MED LIST changes: -AMLO-250 PO; +AMLO5TAB9 PO; -ASPI-1238 PO; +ASPI-983 PO; +CALC-6 PO; -CALC1TAB84 PO; +CALC600T14 PO; +CATHETER FLUSH 10 ML SYR IV PRN; -CLC600T PO; +PANT40TA3 PO; -PANT40TA52 PO; +REGADENOSON 0.4 MG/5 ML SYR (LEXISCAN) IV ONE
[2020-04-25 08:48] VITALS: BP 147/87
[2020-04-25 09:15] VITALS: BP 163/83
--- NOTE | 2020-04-25 19:21 | STRESS TEST ---
DATE OF SERVICE: 04/25/2020 RESTING AND POST REGADENOSON TECHNETIUM-99M TETROFOSMIN SPECT CT IMAGING ORDERING PHYSICIAN: Pam Holman APRN PRIMARY PHYSICIAN: Dr. Kyle. OTHER PHYSICIAN: Dr. Wiggins. CLINICAL DIAGNOSIS: Coronary artery disease. Baseline images were carried out after injection of 10.84 mCi of technetium-99m Tetrofosmin. This was followed by 0.4 mg regadenoson and 33 mCi of technetium-99m Tetrofosmin for stress imaging. The electrocardiogram showed atrial fibrillation throughout the study. Ventricular rate was controlled. The electrocardiogram did not change significantly with regadenoson infusion. The patient noted mild chest discomfort following regadenoson infusion, which resolved in a few minutes. Review of images at rest and following stress does not indicate perfusion defects consistent with significant myocardial ischemia or infarction. Gated images show normal global left ventricular systolic function with normal regional wall motion. Left ventricular ejection fraction is calculated to be 56%. CONCLUSIONS: 1. No evidence of any significant myocardial ischemia or infarction on this study. 2. Normal regional wall motion. 3. Normal global left ventricular systolic function with a calculated ejection fraction of 56%. Job ID: [id number] DocumentID: [id number] Dictated Date: 04/25/2020 14:51:55 Transcribing Machine Operator Date: 04/25/2020 19:21:03 Dictated By: SINDY WIGGINS MD, MA, FACP, FACC,
== END ==
LOC: CARD 06:51
PROVIDERS: ATTEND Nurse Practitioner Family
DX: I25.10 Atherosclerotic heart disease of native coronary artery without angina pectoris (principal); I48.91 Unspecified atrial fibrillation; I11.0 Hypertensive heart disease with heart failure; I50.32 Chronic diastolic (congestive) heart failure; E78.5 Hyperlipidemia, unspecified
CPT/HCPCS: 78452; 93017; A9502

== ENCOUNTER 2020-05-27 17:00 | Emergency (ER) | payer MEDICARE, MEDICAID ==
[~2020-05-27] VITALS: Ht 157.4 cm; Wt 87.2 kg
[~2020-05-27 17:00] MED LIST changes: +ASPI-1238 PO; -ASPI-983 PO; -CALC600T14 PO; -CATHETER FLUSH 10 ML SYR IV PRN; +CLC600T PO; -PANT40TA3 PO; +PANT40TA52 PO; -REGADENOSON 0.4 MG/5 ML SYR (LEXISCAN) IV ONE
--- NOTE | 2020-05-27 17:22 | ED General ---
General Stated Complaint: HIP PAIN Source of Information: Patient, EMS Exam Limitations: No Limitations (BRITTNEY MOORE MD) History of Present Illness Date Seen by Provider: May 27, 2020 Time Seen by Provider: 17:12 Initial Comments Patient is a 79-year-old female who presents to the emergency room today with a chief complaint of right flank pain. Patient states that she thought it was her back. It started last evening while she was just sitting in her chair. She describes excruciating pain that kept her up all night long last night. Patient states she has been taking 2 extra strength Tylenol every 6 hours all last night and today without any relief of pain. She is also been using a heating pad without any relief of the pain. Nothing she can do makes the pain any better. She states that walking and moving around make her pain worse. She states she is never had pain like this before. She denies any history of recent traumas including falls or twisting injuries. She denies any problems with urination, burning or increased frequency. She does state that her urine is a little bit darker than normal. All other review of systems reviewed and negative except as stated. Timing/Duration: 12-24 Hours Severity: Severe (Currently rating her pain a "10") Modifying Factors: improves with Movement Associated Systoms: Denies Symptoms (BRITTNEY MOORE MD) Allergies and Home Medications Allergies Coded Allergies: ARSALANANo Known Allergies (Verified Allergy, Unknown, 03/26/06) Home Medications Amlodipine Besylate 5 Mg Tablet, 5 MG PO DAILY, (Reported) Carvedilol 25 Mg Tablet, 25 MG PO BID, (Reported) Cefdinir 300 Mg Capsule, 300 MG PO BID Prescribed by: SUPA ROLON on 05/27/201921 Cholecalciferol (Vitamin D3) 1,000 Unit Capsule, 1,000 UNIT PO DAILY, (Reported) Famotidine 20 Mg Tablet, 20 MG PO DAILY Prescribed by: JENNIFER WASHINGTON on 01/29/19 104 Furosemide 80 Mg Tablet, 80 MG PO DAILY, (Reported) Gabapentin 300 Mg Capsule, 300 MG PO 1999,2300, (Reported) Glimepiride 4 Mg Tablet, 4 MG PO BID PRN for BLOOD SUGAR >200, (Reported) Hydrocodone/Acetaminophen 1 Each Tablet, 1 EACH PO Q4-6 HOURS PRN for PAIN Prescribed by: SUPA ROLON on 05/27/201921 Losartan Potassium 100 Mg Tablet, 100 MG PO DAILY, (Reported) Lovastatin 20 Mg Tablet, 20 MG PO HS, (Reported) Magnesium Oxide 400 Mg Tablet, 400 MG PO BID Prescribed by: MYRANDA POSADA on 02/07/191748 Metformin HCl 1,000 Mg Tablet, 1,000 MG PO BID, (Reported) Mineral Oil/Petrolatum,White 3.5 Gm Oint...g., OU HS PRN for DRY EYES, (Reported) Slemp 3 Polyunsat Fatty Acids 1,000 Mg Cap, 1,000 MG PO DAILY, (Reported) Pantoprazole Sodium 40 Mg Tablet.dr, 40 MG PO DAILY, (Reported) Polyvinyl Alcohol/Povidone 15 Ml Drops, 1-2 DROPS OU QID PRN for DRY EYES, (Reported) Potassium Chloride 10 Meq Capsule.er, 10 MEQ PO DAILY, (Reported) Patient Home Medication List Home Medication List Reviewed: Yes (BRITTNEY MOORE MD) Review of Systems Review of Systems Constitutional: no symptoms reported EENTM: see HPI Respiratory: no symptoms reported Cardiovascular: no symptoms reported Gastrointestinal: no symptoms reported Genitourinary: no symptoms reported Musculoskeletal: back pain (Right flank) Skin: no symptoms reported (BRITTNEY MOORE MD) All Other Systems Reviewed Negative Unless Noted: Yes (BRITTNEY MOORE MD) Past Frscpge-Vcqsij-Nuwkup Hx Patient Social History Alcohol Use: Denies Use Type Used: Cigarettes Former Smoker, Quit: Feb 11, 1985 2nd Hand Smoke Exposure: No Recent Hopitalizations: No (BRITTNEY MOORE MD) Immunizations Up To Date Tetanus Booster (TDap): Unknown PED Vaccines UTD: No Date of Pneumonia Vaccine: Jul 19, 2011 Date of Influenza Vaccine: May 28, 2018 (BRITTNEY MOORE MD) Seasonal Allergies Seasonal Allergies: No (BRITTNEY MOORE MD) Past Medical History Surgeries: Yes (cyst from breast bone removed, carpal tunnel, cardiac stents) Coronary Stent Respiratory: Yes COPD Currently Using CPAP: No Currently Using BIPAP: No Cardiac: Yes Atrial Fibrillation, Cardiomyopathy, Heart Attack, High Cholesterol Neurological: Yes Dementia, Neuropathy Reproductive Disorders: No Female 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 Sexually Transmitted Disease: No HIV/AIDS: No Genitourinary: No Gastrointestinal: Yes Gastroesophageal Reflux, Gastrointestinal Bleed Musculoskeletal: Yes Arthritis Endocrine: Yes Diabetes, Non-Insulin dep HEENT: Yes Cataract Loss of Vision: Denies Hearing Impairment: Denies Cancer: No Psychosocial: Yes Depression Integumentary: No Blood Disorders: Yes (anemia) Adverse Reaction/Blood Tranf: No (BRITTNEY MOORE MD) Family Medical History Cardiovascular disease 19 FATHER 19 MOTHER FH: stroke FHx: diabetes mellitus Heart Disease, Diabetes, Hypertension (BRITTNEY MOORE MD) Physical Exam Vital Signs Vital Signs - First Documented 05/27/20 17:05 Temp 35.9 Pulse 80 Resp 18 B/P (MAP) 137/72 (93) Pulse Ox 93 O2 Delivery Room Air (GONZALES,SUPA K DO) Vital Signs Capillary Refill : (BRITTNEY MOORE MD) Height, Weight, BMI Height: 5'1.50" Weight: 191lbs. 8.0oz. 86.439940oe; 38.79 BMI Method:Stated General Appearance: WD/WN, Anxious, Moderate Distress Eyes: Bilateral Eye Normal Inspection Neck: Full Range of Motion, Normal Inspection Respiratory: Chest Non Tender, Lungs Clear, Normal Breath Sounds, No Respiratory Distress Cardiovascular: Normal Peripheral Pulses, Irregularly Irregular Gastrointestinal: Normal Bowel Sounds Back: Normal Inspection, No CVA Tenderness, Other (no reproducible tenderness in the back/flank) Extremity: Normal Capillary Refill, Normal Inspection, Normal Range of Motion, Non Tender Neurologic/Psychiatric: Alert, Oriented x3, No Motor/Sensory Deficits, Normal Mood/Affect Skin: Normal Color, Warm/Dry (BRITTNEY MOORE MD) Progress/Results/Core Measures Suspected Sepsis SIRS Temperature: Pulse: Respiratory Rate: Laboratory Tests 05/27/20 17:32: Blood Pressure / Mean: Laboratory Tests 05/27/20 17:32: (BRITTNEY MOORE MD) Results/Orders Lab Results Laboratory Tests Test 05/27/20 17:32 05/27/20 18:15 Range/Units White Blood Count 10.2 4.3-11.0 10^3/uL Red Blood Count 3.87 3.80-5.11 10^6/uL Hemoglobin 11.8 11.5-16.0 g/dL Hematocrit 37 35-52 % Mean Corpuscular Volume 95 80-99 fL Mean Corpuscular Hemoglobin 31 25-34 pg Mean Corpuscular Hemoglobin Concent 32 32-36 g/dL Red Cell Distribution Width 16.8 H 10.0-14.5 % Platelet Count 273 130-400 10^3/uL Mean Platelet Volume 11.7 9.0-12.2 fL Sodium Level 140 135-145 MMOL/L Potassium Level 4.4 3.6-5.0 MMOL/L Chloride Level 102 98-107 MMOL/L Carbon Dioxide Level 20 L 21-32 MMOL/L Anion Gap 18 H 5-14 MMOL/L Blood Urea Nitrogen 25 H 7-18 MG/DL Creatinine 1.33 H 0.60-1.30 MG/DL Estimat Glomerular Filtration Rate 39 BUN/Creatinine Ratio 19 Glucose Level 164 H 70-105 MG/DL Calcium Level 9.1 8.5-10.1 MG/DL Corrected Calcium 9.3 8.5-10.1 MG/DL Total Bilirubin 0.5 0.1-1.0 MG/DL Aspartate Amino Transf (AST/SGOT) 15 5-34 U/L Alanine Aminotransferase (ALT/SGPT) 12 0-55 U/L Alkaline Phosphatase 44 40-136 U/L Total Protein 7.2 6.4-8.2 GM/DL Albumin 3.8 3.2-4.5 GM/DL Urine Color YELLOW Urine Clarity CLEAR Urine pH 6.0 5-9 Urine Specific Radnor 1.010 L 1.016-1.022 Urine Protein NEGATIVE NEGATIVE Urine Glucose (UA) NEGATIVE NEGATIVE Urine Ketones NEGATIVE NEGATIVE Urine Nitrite NEGATIVE NEGATIVE Urine Bilirubin NEGATIVE NEGATIVE Urine Urobilinogen 0.2 < = 1.0 MG/DL Urine Leukocyte Esterase 1+ H NEGATIVE Urine RBC (Auto) NEGATIVE NEGATIVE Urine RBC NONE /HPF Urine WBC 50-100 H /HPF Urine Squamous Epithelial Cells 5-10 /HPF Urine Crystals NONE /LPF Urine Bacteria LARGE H /HPF Urine Casts PRESENT /LPF Urine Hyaline Casts 0-2 H /LPF Urine Mucus NEGATIVE /LPF Urine Culture Indicated YES (GONZALESSUPA K DO) My Orders Orders - GONZALESSUPA K DO Ct Abd/Pelvis Wo(Kidney Stone) (05/27/20 18:11) Abdomen, Flat & Upright/Decub (05/27/20 18:11) Ceftriaxone For Iv Use (Rocephin For I (05/27/20 19:30) Fentanyl Injection (Sublimaze Injection (05/27/20 19:30) Rx-Hydrocodone/Apap 5-325 Mg (Rx-Vicodin (05/27/20 19:30) Rx-Hydrocodone/Apap 5-325 Mg (Rx-Vicodin (05/27/20 19:53) (SUPA ROLON DO) Medications Given in ED Current Medications Medications Dose Ordered Sig/Pat Route Start Time Stop Time Status Last Admin Dose Admin Ceftriaxone Sodium 1000 mg/ Sterile Water 10 ml @ 200 mls/hr ONCE ONCE IV 05/27/20 19:30 05/27/20 19:32 DC 05/27/20 19:39 200 MLS/HR Fentanyl Citrate 25 mcg ONCE PRN IVP 05/27/20 19:30 05/27/20 20:35 DC 05/27/20 20:03 25 MCG Sodium Chloride 500 ml @ 0 mls/hr Q0M ONCE IV 05/27/20 17:24 05/27/20 20:31 DC 05/27/20 17:52 500 MLS/HR (SUPA ROLON DO) Vital Signs/I&O 05/27/20 20:34 Temp 35.9 Pulse 80 Resp 18 B/P (MAP) 137/72 (93) Pulse Ox 93 (SUPA ROLON DO) Vital Signs/I&O Capillary Refill : (BRITTNEY MOORE MD) Progress Note : Progress Note 1800--ASSUMED CARE FROM DR. MOORE, LAB PENDING. 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 The heart is mildly large. There is no pericardial effusion. The liver demonstrates no focal lesions. Multiple stones are seen in the gallbladder. The spleen appears normal. The adrenal glands are mildly thickened without discrete nodule identified. The pancreas is mildly atrophic. No hydronephrosis is seen. There are no obstructing calculi. The appendix is normal. The bowel loops are nondistended without obstruction seen. No lymphadenopathy is seen. There is calcific atherosclerosis. No free fluid or free air is seen. No fluid collections are seen. No acute osseous abnormality is seen. There are degenerative changes in the spine. IMPRESSION: 1. No hydronephrosis or obstructing renal calculi. 2. Cholelithiasis. ABDOMINAL XRAYS--PER RADIOLOGIST REPORT AT 1916 FINDINGS: No distended loops of bowel are seen. There is no large collection of free air. No calculi are seen in the kidneys or along the expected course of the ureters. There are degenerative changes in the spine. IMPRESSION: No large collection of free air or bowel obstruction. No definite calculi in the kidneys or along the course of the ureters. Reviewed: Reviewed by Me (SUPA ROLON DO) Departure Impression Primary Impression: Urinary tract infection Additional Impressions: Cholelithiasis Renal insufficiency Disposition: HOME, SELF-CARE Condition: Stable Departure-Patient Inst. Referrals: WALDEMAR GUZMÁN WILLIAM J DO (PCP/Family) Primary Care Physician Patient Instructions: Urinary Tract Infection, Adult (DC), Gallstones (DC) Add. Discharge Instructions: LOTS OF CLEAR LIQUIDS FOLLOW UP WITH DR. GUZMÁN, SURGEON, FOR GALLSTONES--CALL ON FRIDAY TO SCHEDULE APPOINTMENT FOLLOW UP WITH DR. MALDONADO NEXT WEEK TO RECHECK URINE Scripts Hydrocodone/Acetaminophen (Hydrocodone-Acetamin 5-325 mg) 1 Each Tablet 1 EACH PO Q4-6 HOURS PRN for PAIN, #20 TAB Prov: SUPA ROLON DO 05/27/20 Cefdinir (Cefdinir) 300 Mg Capsule 300 MG PO BID, #20 CAP Prov: SUPA ROLON DO 05/27/20 BRITTNEY MOORE MD May 27, 2020 17:22 SUPA ROLON DO May 27, 2020 18:13
[2020-05-27] MEDS ORDERED: NS IV 500 ML 500 ML IV ONE (17:24)
[2020-05-27] MEDS ORDERED: fentaNYL INJECTION 100 MCG/2 ML AMP IVP STA (17:44)
[2020-05-27] MEDS ORDERED: NS IV 500 ML 500 ML ONE (17:45)
[2020-05-27 17:55] LABS: ALBUMIN 3.8 GM/DL (3.2-4.5); POTASSIUM 4.4 MMOL/L (3.6-5.0)
[2020-05-27 17:56] LABS: CALCIUM 9.1 MG/DL (8.5-10.1)
[2020-05-27 17:58] LABS: TOTAL PROTEIN 7.2 GM/DL (6.4-8.2)
[2020-05-27 17:59] LABS: BILIRUBIN,TOTAL 0.5 MG/DL (0.1-1.0)
[2020-05-27 18:01] LABS: CREATININE SERUM 1.33 MG/DL (0.60-1.30)
[2020-05-27 18:02] LABS: HEMOGLOBIN 11.8 g/dL (11.5-16.0); MEAN PLATELET VOLUME 11.7 fL (9.0-12.2); WHITE BLOOD COUNT 10.2 10^3/uL (4.3-11.0)
[2020-05-27 18:22] LABS: BILIRUBIN,URINE NEGATIVE (NEGATIVE); CLARITY,URINE CLEAR; COLOR,URINE YELLOW; GLUCOSE, URINE (UA) NEGATIVE (NEGATIVE); KETONES,URINE NEGATIVE (NEGATIVE); LEUKOCYTE ESTERASE ,URINE 1+ (NEGATIVE); NITRITE,URINE NEGATIVE (NEGATIVE); PROTEIN,URINE NEGATIVE (NEGATIVE)
[2020-05-27 18:30] LABS: BACTERIA,URINE LARGE /HPF; WBC,URINE 50-100 /HPF
[2020-05-27 18:31] LABS: HYALINE CASTS, URINE 0-2 /LPF
--- NOTE | 2020-05-27 19:04 | NUR ---
REPORT TO NANCY
--- NOTE | 2020-05-27 19:09 | Diagnostic Imaging Report ---
PROCEDURE: CT urinary tract, rule out kidney stone. TECHNIQUE: Multiple contiguous axial images were obtained through the abdomen and pelvis without the use of intravenous contrast. Auto Exposure Controls were utilized during the CT exam to meet ALARA standards for radiation dose reduction. INDICATION: Right flank pain, bleeding ulcer. COMPARISON: None. FINDINGS: The lung bases are clear. The heart is mildly large. There is no pericardial effusion. The liver demonstrates no focal lesions. Multiple stones are seen in the gallbladder. The spleen appears normal. The adrenal glands are mildly thickened without discrete nodule identified. The pancreas is mildly atrophic. No hydronephrosis is seen. There are no obstructing calculi. The appendix is normal. The bowel loops are nondistended without obstruction seen. No lymphadenopathy is seen. There is calcific atherosclerosis. No free fluid or free air is seen. No fluid collections are seen. No acute osseous abnormality is seen. There are degenerative changes in the spine. IMPRESSION: 1. No hydronephrosis or obstructing renal calculi. 2. Cholelithiasis. Dictated by: Dictated on workstation # [id number]
--- NOTE | 2020-05-27 19:15 | Diagnostic Imaging Report ---
HISTORY: Right flank pain. TECHNIQUE: Supine and upright frontal views of the abdomen. COMPARISON: None. FINDINGS: No distended loops of bowel are seen. There is no large collection of free air. No calculi are seen in the kidneys or along the expected course of the ureters. There are degenerative changes in the spine. IMPRESSION: No large collection of free air or bowel obstruction. No definite calculi in the kidneys or along the course of the ureters. Dictated by: Dictated on workstation # [id number]
[2020-05-27] MEDS ORDERED: CEFD300C3 PO (19:22)
[2020-05-27] MEDS ORDERED: ACHD5005 PO (19:22)
[2020-05-27] MEDS ORDERED: fentaNYL INJECTION 100 MCG/2 ML AMP IVP PRN (19:30)
[2020-05-27] MEDS ORDERED: RX-HYDROCODONE/APAP 5/325 MG #4 TAB PK PO PRN (19:30)
[2020-05-27] MEDS ORDERED: cefTRIAXone FOR IV USE 1,000 MG in WATER (STERILE) FOR INJECTION 10 ML IV ONE (19:30)
[2020-05-27] MEDS ORDERED: RX-HYDROCODONE/APAP 5/325 MG #4 TAB PK PO ONE (19:53)
--- NOTE | 2020-05-27 19:55 | NUR ---
To room with d/c instructions for patient; pt provided detailed instructions involving her f/u. Pt questioned her leg "giving out" and pt was advised that she should f/u with her PCP regarding further studies or ambulatory assistance at home. Pt verbalized an understanding but this nurse will speak with sister as well to ensure understanding.
[2020-05-27 20:34] VITALS: BP 137/72
--- NOTE | 2020-05-27 20:45 | NUR ---
Pt ambulated from w/c to sisters car when she stated that her leg "gave out" and pt fell to the ground. This nurse was present when this occured. Pt was assisted to w/c with the help of other staff and brought back into ER and evaluated by Dr. Echeverria. Pt denies new injuries. Dr. Echeverria stressed the importance of f/u with PCP regarding help at home with ambulation. Pt back to car with assistance of this nurse and house [place]. Pt ambulated from w/c to car w/o incident. F/U care was discussed with sister and patient again. It was stressed that the patient needs to discuss other ambulatory assistive devices with her PCP like a scooter device and the continuing issues with her ambulation to ensure her safety, as she wishes to continue living independently at home. Sister verbalized an understanding of this conversation.
== END 2020-05-27 20:35 | disposition home or self-care (01) ==
LOC: EDUNIT# 17:00 → ER 17:01
DX: N39.0 Urinary tract infection, site not specified (principal); K80.20 Calculus of gallbladder without cholecystitis without obstruction; N28.9 Disorder of kidney and ureter, unspecified; F41.9 Anxiety disorder, unspecified; E11.9 Type 2 diabetes mellitus without complications; I25.2 Old myocardial infarction; K21.9 Gastro-esophageal reflux disease without esophagitis; E78.00 Pure hypercholesterolemia, unspecified; Z82.49 Family history of ischemic heart disease and other diseases of the circulatory system; Z83.3 Family history of diabetes mellitus; Z95.5 Presence of coronary angioplasty implant and graft; Z87.891 Personal history of nicotine dependence; Z79.84 Long term (current) use of oral hypoglycemic drugs
CPT/HCPCS: 36415; 74019; 74176; 80053; 81000; 85027; 87077; 87088; 87186

== ENCOUNTER → 2020-06-22 | Outpatient (CLI) | payer MEDICARE, MEDICAID ==
[~2020-06-22] MED LIST changes: +CEFD300C3 PO
--- NOTE | 2020-06-22 17:16 | Diagnostic Imaging Report ---
INDICATION: Right-sided lumbar pain. COMPARISON: CT dated 05/27/2020. FINDINGS: Frontal, lateral, and oblique radiographic views of the lumbar spine were obtained. Static alignment is preserved. There is no significant anteroretrolisthesis. There is no evidence of jumped facets. Vertebral body heights are maintained. There is no acute fracture. Moderate multilevel degenerative changes are present and consistent with intervertebral disc height loss with multilevel anterior and posterior disc osteophyte complex formations, as well as multilevel facet arthropathy. Included small bowel loops are nondistended. Note is made of diffuse calcified aortic and arterial atherosclerosis. IMPRESSION:. Moderate degenerative changes of the lumbar spine, but no evidence of acute fracture or dislocation. Dictated by: Dictated on workstation # [id number]
== END ==
LOC: RAD 15:25
PROVIDERS: ATTEND Internal Medicine
DX: M47.816 Spondylosis without myelopathy or radiculopathy, lumbar region (principal)
CPT/HCPCS: 72110

== ENCOUNTER → 2020-07-24 | Outpatient (CLI) | payer MEDICARE, MEDICAID ==
[~2020-07-24] MED LIST changes: +AMLO-250 PO; -AMLO5TAB9 PO; -CALC-6 PO; +CALC1TAB84 PO
--- NOTE | 2020-07-24 15:22 | Diagnostic Imaging Report ---
PROCEDURE: CT lumbar spine without contrast. TECHNIQUE: Multiple contiguous axial images were obtained through the lumbar spine without the use of intravenous contrast. Sagittal and coronal reformations were then performed. Auto Exposure Controls were utilized during the CT exam to meet ALARA standards for radiation dose reduction. INDICATION: Back pain and leg weakness with right hip pain. FINDINGS: There is a subacute compression fracture involving the inferior endplate of L3. There is a vacuum disc at L3-L4. There are otherwise diffuse degenerative changes. The remaining lumbar vertebral body heights are well-maintained. There is no spondylolysis or spondylolistheses. The aorta is nonaneurysmal. There are no other focal soft tissue abnormalities. IMPRESSION: Subacute compression fracture involving the inferior endplate of L3 with a vacuum disc at L3-L4. Diffuse lumbar spondylosis. Dictated by: Dictated on workstation # [id number]
== END ==
LOC: RAD 14:45
PROVIDERS: ATTEND Internal Medicine
CPT/HCPCS: 72131

== ENCOUNTER 2020-12-14 14:54 | Outpatient (RCR) | payer MEDICARE, MEDICAID ==
[2020-12-11 15:59] LABS: BASOPHILS % (AUTO) 0 % (0-10); EOSINOPHILS # (AUTO) 0.2 10^3/uL (0.0-0.3); EOSINOPHILS % (AUTO) 3 % (0-10); HEMATOCRIT 38 % (35-52); HEMOGLOBIN 11.5 g/dL (11.5-16.0); LYMPHOCYTES # (AUTO) 0.9 10^3/uL (1.0-4.0); LYMPHOCYTES % (AUTO) 10 % (12-44); MEAN CORPUSCULAR HEMOGLOBIN 28 pg (25-34); MEAN CORPUSCULAR HGB CONC 31 g/dL (32-36); MEAN CORPUSCULAR VOLUME 93 fL (80-99); MEAN PLATELET VOLUME 10.9 fL (9.0-12.2); MONOCYTES # (AUTO) 0.5 10^3/uL (0.0-1.0); MONOCYTES % (AUTO) 5 % (0-12); NEUTROPHILS # (AUTO) 7.1 10^3/uL (1.8-7.8); NEUTROPHILS % (AUTO) 81 % (42-75); PLATELET COUNT 260 10^3/uL (130-400); WHITE BLOOD COUNT 8.7 10^3/uL (4.3-11.0)
[2020-12-11 16:21] LABS: ALBUMIN 3.9 GM/DL (3.2-4.5); BILIRUBIN,TOTAL 0.4 MG/DL (0.1-1.0); CALCIUM 9.6 MG/DL (8.5-10.1); CREATININE SERUM 2.14 MG/DL (0.60-1.30); TOTAL PROTEIN 7.7 GM/DL (6.4-8.2)
[~2020-12-14 14:54] MED LIST changes: +CALC600T91 PO; -CLC600T PO; -CLIN150C17 PO; +CLIN150C18 PO; -SULF1TAB35 PO; +SULF1TAB38 PO
== END 2021-03-11 | disposition home or self-care (01) ==
LOC: ONC 14:54
PROVIDERS: ATTEND Internal Medicine Hematology & Oncology
DX: D50.0 Iron deficiency anemia secondary to blood loss (chronic) (principal); I25.10 Atherosclerotic heart disease of native coronary artery without angina pectoris; E11.22 Type 2 diabetes mellitus with diabetic chronic kidney disease; I13.0 Hypertensive heart and chronic kidney disease with heart failure and stage 1 through stage 4 chronic kidney disease, or unspecified chronic kidney disease; N18.30 Chronic kidney disease, stage 3 unspecified; I48.0 Paroxysmal atrial fibrillation; E78.5 Hyperlipidemia, unspecified; E66.01 Morbid (severe) obesity due to excess calories; K29.51 Unspecified chronic gastritis with bleeding; Z79.82 Long term (current) use of aspirin; I50.32 Chronic diastolic (congestive) heart failure; K26.4 Chronic or unspecified duodenal ulcer with hemorrhage; Z79.84 Long term (current) use of oral hypoglycemic drugs; Z68.31 Body mass index [BMI] 31.0-31.9, adult
CPT/HCPCS: 80053; 82728; 85025; 99213

== ENCOUNTER 2021-06-12 13:22 | Outpatient (RCR) | payer MEDICARE, MEDICAID ==
[2021-03-15 10:30] LABS: BASOPHILS # (AUTO) 0.1 10^3/uL (0.0-0.1); BASOPHILS % (AUTO) 1 % (0-10); EOSINOPHILS # (AUTO) 0.4 10^3/uL (0.0-0.3); EOSINOPHILS % (AUTO) 5 % (0-10); HEMATOCRIT 31 % (35-52); HEMOGLOBIN 9.6 g/dL (11.5-16.0); LYMPHOCYTES % (AUTO) 11 % (12-44); MEAN CORPUSCULAR HEMOGLOBIN 28 pg (25-34); MEAN CORPUSCULAR HGB CONC 31 g/dL (32-36); MEAN CORPUSCULAR VOLUME 92 fL (80-99); MEAN PLATELET VOLUME 10.4 fL (9.0-12.2); MONOCYTES # (AUTO) 0.6 10^3/uL (0.0-1.0); MONOCYTES % (AUTO) 7 % (0-12); NEUTROPHILS # (AUTO) 7.2 10^3/uL (1.8-7.8); NEUTROPHILS % (AUTO) 77 % (42-75); PLATELET COUNT 332 10^3/uL (130-400); WHITE BLOOD COUNT 9.4 10^3/uL (4.3-11.0)
[2021-03-15 10:49] LABS: CALCIUM 8.7 MG/DL (8.5-10.1); CREATININE SERUM 1.81 MG/DL (0.60-1.30); POTASSIUM 4.3 MMOL/L (3.6-5.0)
[~2021-06-12 13:22] MED LIST changes: -CLIN150C18 PO; +CLIN150C20 PO
[2021-06-12 13:36] LABS: BASOPHILS % (AUTO) 0 % (0-10); EOSINOPHILS # (AUTO) 0.2 10^3/uL (0.0-0.3); EOSINOPHILS % (AUTO) 2 % (0-10); HEMATOCRIT 36 % (35-52); HEMOGLOBIN 11.1 g/dL (11.5-16.0); LYMPHOCYTES # (AUTO) 0.9 10^3/uL (1.0-4.0); LYMPHOCYTES % (AUTO) 9 % (12-44); MEAN CORPUSCULAR HEMOGLOBIN 29 pg (25-34); MEAN CORPUSCULAR HGB CONC 31 g/dL (32-36); MEAN CORPUSCULAR VOLUME 94 fL (80-99); MEAN PLATELET VOLUME 11.3 fL (9.0-12.2); MONOCYTES # (AUTO) 0.5 10^3/uL (0.0-1.0); MONOCYTES % (AUTO) 6 % (0-12); NEUTROPHILS # (AUTO) 7.5 10^3/uL (1.8-7.8); NEUTROPHILS % (AUTO) 82 % (42-75); PLATELET COUNT 275 10^3/uL (130-400); WHITE BLOOD COUNT 9.2 10^3/uL (4.3-11.0)
[2021-06-12 14:01] LABS: ALBUMIN 3.9 GM/DL (3.2-4.5); BILIRUBIN,TOTAL 0.5 MG/DL (0.1-1.0); CALCIUM 9.9 MG/DL (8.5-10.1); CREATININE SERUM 2.04 MG/DL (0.60-1.30); POTASSIUM 4.5 MMOL/L (3.6-5.0); TOTAL PROTEIN 7.8 GM/DL (6.4-8.2)
[2021-06-13 08:46] LABS: ABSOLUTE RETIC # 42 10e9/uL (24-90)
== END 2021-06-13 | disposition home or self-care (01) ==
LOC: ONC 13:22
PROVIDERS: ATTEND Internal Medicine Hematology & Oncology
DX: D50.0 Iron deficiency anemia secondary to blood loss (chronic) (principal); I25.10 Atherosclerotic heart disease of native coronary artery without angina pectoris; E11.22 Type 2 diabetes mellitus with diabetic chronic kidney disease; I13.0 Hypertensive heart and chronic kidney disease with heart failure and stage 1 through stage 4 chronic kidney disease, or unspecified chronic kidney disease; N18.30 Chronic kidney disease, stage 3 unspecified; I48.0 Paroxysmal atrial fibrillation; E78.5 Hyperlipidemia, unspecified; E66.01 Morbid (severe) obesity due to excess calories; K29.51 Unspecified chronic gastritis with bleeding; Z79.82 Long term (current) use of aspirin; I50.32 Chronic diastolic (congestive) heart failure; K26.4 Chronic or unspecified duodenal ulcer with hemorrhage; Z79.84 Long term (current) use of oral hypoglycemic drugs; Z68.31 Body mass index [BMI] 31.0-31.9, adult
CPT/HCPCS: 80048; 80053; 82728; 85025; 85045; 99213

== ENCOUNTER 2022-07-15 23:32 | Observation (INO) | payer MEDICARE, MEDICAID ==
[~2022-07-15] VITALS: Ht 154 cm; Wt 91.0 kg
[2022-07-15 23:59] LABS: BASOPHILS % (AUTO) 0 % (0-10); EOSINOPHILS # (AUTO) 0.2 10^3/uL (0.0-0.3); EOSINOPHILS % (AUTO) 2 % (0-10); HEMATOCRIT 36 % (35-52); HEMOGLOBIN 11.4 g/dL (11.5-16.0); LYMPHOCYTES # (AUTO) 0.6 10^3/uL (1.0-4.0); LYMPHOCYTES % (AUTO) 6 % (12-44); MEAN CORPUSCULAR HEMOGLOBIN 30 pg (25-34); MEAN CORPUSCULAR HGB CONC 32 g/dL (32-36); MEAN CORPUSCULAR VOLUME 95 fL (80-99); MEAN PLATELET VOLUME 11.4 fL (9.0-12.2); MONOCYTES # (AUTO) 0.4 10^3/uL (0.0-1.0); MONOCYTES % (AUTO) 4 % (0-12); NEUTROPHILS % (AUTO) 87 % (42-75); PLATELET COUNT 256 10^3/uL (130-400); WHITE BLOOD COUNT 10.3 10^3/uL (4.3-11.0)
[2022-07-16] VITALS (12 sets, daily range): BP systolic 93–148; BP diastolic 48–89
[2022-07-16] MEDS ORDERED: ENOXAPARIN 100 MG/1 ML (LOVENOX) SYR SC ONE
[2022-07-16] MEDS: NITROGLYCERIN 0.4 MG SL TABS BTL 25'S SL PRN ×2 (00:03→00:28)
[2022-07-16 00:16] LABS: PROTHROMBIN TIME PATIENT 13.6 SEC (12.2-14.7)
[2022-07-16 00:21] LABS: ALBUMIN 3.8 GM/DL (3.2-4.5); BILIRUBIN,TOTAL 0.6 MG/DL (0.1-1.0); CALCIUM 9.3 MG/DL (8.5-10.1); CREATININE SERUM 2.04 MG/DL (0.60-1.30); POTASSIUM 4.2 MMOL/L (3.6-5.0); TOTAL PROTEIN 7.3 GM/DL (6.4-8.2)
[2022-07-16 00:27] LABS: CREATINE KINASE MB 3.2 NG/ML (<6.6)
[2022-07-16] MEDS ORDERED: ONDANSETRON 4 MG/2 ML (SDV) Z0FRAN IVP ONE (00:45)
[2022-07-16] MEDS ORDERED: morphine INJ 10 MG/ML 1ML (SYR OR VIAL) IVP ONE (00:45)
[2022-07-16 00:46] LABS: EOSINOPHILS % (MANUAL) 2 %; LYMPHOCYTES % (MANUAL) 9 %; NEUTROPHILS % (MANUAL) 89 %; RBC MORPH NORMAL
[2022-07-16] MEDS ORDERED: FUROSEMIDE 40 MG/4 ML INJ (LASIX) IVP ONE (01:00)
[2022-07-16] MEDS ORDERED: CATHETER FLUSH 10 ML SYR IVP PRN (03:30)
[2022-07-16] MEDS ORDERED: morphine INJ 4 MG/ML 1 ML (VIAL/SYRINGE) IV PRN (03:30)
[2022-07-16] MEDS ORDERED: ONDANSETRON 4 MG/2 ML (SDV) Z0FRAN IV PRN (03:30)
[2022-07-16 05:06] LABS: BASOPHILS % (AUTO) 0 % (0-10); EOSINOPHILS % (AUTO) 0 % (0-10); HEMATOCRIT 39 % (35-52); HEMOGLOBIN 12.1 g/dL (11.5-16.0); LYMPHOCYTES # (AUTO) 0.1 10^3/uL (1.0-4.0); LYMPHOCYTES % (AUTO) 1 % (12-44); MEAN CORPUSCULAR HEMOGLOBIN 30 pg (25-34); MEAN CORPUSCULAR HGB CONC 31 g/dL (32-36); MEAN CORPUSCULAR VOLUME 96 fL (80-99); MEAN PLATELET VOLUME 11.7 fL (9.0-12.2); MONOCYTES # (AUTO) 0.2 10^3/uL (0.0-1.0); MONOCYTES % (AUTO) 2 % (0-12); NEUTROPHILS # (AUTO) 10.8 10^3/uL (1.8-7.8); NEUTROPHILS % (AUTO) 96 % (42-75); PLATELET COUNT 220 10^3/uL (130-400); WHITE BLOOD COUNT 11.2 10^3/uL (4.3-11.0)
[2022-07-16 05:29] LABS: CALCIUM 9.2 MG/DL (8.5-10.1); CREATININE SERUM 1.97 MG/DL (0.60-1.30)
[2022-07-16] MEDS: inSUlin ASPART (NovoLOG) 1 UNIT/0.01 ML (CHARGE PER UNIT) SC SCH ×3 (05:55→17:00)
[2022-07-16] MEDS: CATHETER FLUSH 10 ML SYR IVP SCH ×2 (06:18→13:15)
--- NOTE | 2022-07-16 06:51 | Diagnostic Imaging Report ---
INDICATION: Chest pain. TECHNIQUE: Single view chest 12:24 AM. CORRELATION STUDY: 02/07/2019 FINDINGS: Generally stable severity cardiac enlargement. Coronary artery stent over left heart border. Calcification of the aortic arch. Pulmonary vascular congestion and mild edema is noted, appearing changed from prior. No definitive infiltrate. Likely overlying artifact over the right lower chest and axillary region. IMPRESSION: 1. At least mild severity congestive heart failure. Dictated by: Dictated on workstation # [id number]
--- NOTE | 2022-07-16 07:11 | ED Chest Pain ---
General Chief Complaint: Chest Pain Stated Complaint: CHEST PAIN;CHRONIC A.FIB;NIDDM Nursing Triage Note: PT ARRIVAL TO ER [facility]IA [facility] FROM HOME WITH COMPLAINT OF CHEST PAIN SINCE 1430 THIUS AFTERNOON. PAIN IS A HEAVINESS IN CHEST THAT GOES THROUGH TO BACK AND SHOULDER BLADES. PATIENT STATES THAT SHE ALSO BECAME NAUSEATED DURING THE PAIN. PATIENT ARRIVAL WITH ASA PROOF SORTER. PAIN AT A 7/10. Nursing Sepsis Screen: No Definite Risk Source: patient (LIMTED HISTORIAN AND VERY POOR MEMORY. ), old records History of Present Illness Date Seen by Provider: Jul 15, 2022 Time Seen by Provider: 23:34 Initial Comments PT ARRIVES VIA EMS FROM HOME C/O CHEST PAIN THAT BEGAN AROUND 1400 TODAY AND RADIATES THROUGH TO HER BACK.( HAS CHRONIC BACK PAIN AND HAS HAD PRIOR BACK SURGERY) SHE STATES HE HAS A HISTORY OF MO X 2 AND HAS HAD 2 STENTS. PT DOES NOT HAVE NTG AT HOME. EMS GAVE 324 MG ASPIRIN. NO IV AND NO NTG GIVEN BY EMS PT STATES HER PAIN WAS 7/10, BUT IS 5/10 NOW. PT STATES SHE HAS HAD NAUSEA, NO VOMITING. REPORTS SHE HAS BEEN SHORT OF BREATH DENIES SWEATS/CHILLS OR FEVER DENIES SWELLING IN LEGS/ FEET OR PAIN IN CALVES C/O NAUSEA NO VOMITING STATES SHE TOOK ONE OF HER PAIN PILLS AT 2145 --DOES NOT KNOW WHAT PAIN MEDICATION IT IS. SHE STATES IT DID NOT HELP HER CHEST PAIN ADDITIONALLY, SHE HAS A HISTORY OF CHRONIC ATRIAL FIBRILLATION. SHE HAS HAD A SIGNIFICANT GI BLEED IN THE PAST AND IS NOT ON ANY ANTICOAGULATION. PT HAS SIGNIFICANT MEMORY IMPAIRMENT--DEMENTIA, AND HAS BEEN IN [facility] ( ?ASSISTED LIVING? ) BUT IS NOW BACK HOME LIVING BY HERSELF. PCP: DR. MALDONADO SIZING END BANDER: DR. WIGGINS Allergies and Home Medications Allergies Coded Allergies: Vu Known Allergies (Verified Allergy, Unknown, 03/26/06) Patient Home Medication List Home Medication List Reviewed: Yes Amlodipine Besylate (Amlodipine Besylate) 5 Mg Tablet, 5 MG PO DAILY, (Reported) Entered as Reported by: URIAH EASLEY on 02/11/18 1004 Carvedilol (Carvedilol) 25 Mg Tablet, 25 MG PO BID, (Reported) Entered as Reported by: URIAH EASLEY on 02/11/18 1004 Cefdinir (Cefdinir) 300 Mg Capsule, 300 MG PO BID Prescribed by: SUPA ROLON on 05/27/20 192 Cholecalciferol (Vitamin D3) (Vitamin D3) 1,000 Unit Capsule, 1,000 UNIT PO DAILY, (Reported) Entered as Reported by: URIAH EASLEY on 02/11/18 100 Famotidine (Famotidine) 20 Mg Tablet, 20 MG PO DAILY Prescribed by: JENNIFER WASHINGTON on 01/29/19 1041 Furosemide (Furosemide) 80 Mg Tablet, 80 MG PO DAILY, (Reported) Entered as Reported by: URIAH EASLEY on 01/27/19 0928 Gabapentin (Gabapentin) 300 Mg Capsule, 300 MG PO 1999,2299, (Reported) Entered as Reported by: LYSSA PRADO on 08/11/15 0950 Glimepiride (Glimepiride) 4 Mg Tablet, 4 MG PO BID PRN for BLOOD SUGAR >200, (Reported) Entered as Reported by: URIAH EASLEY on 01/08/19 0843 Hydrocodone/Acetaminophen (Hydrocodone-Acetamin 5-325 mg) 1 Each Tablet, 1 EACH PO Q4-6 HOURS PRN for PAIN Prescribed by: SUPA ROLON on 05/27/20 192 Losartan Potassium (Losartan Potassium) 100 Mg Tablet, 100 MG PO DAILY, (Reported) Entered as Reported by: URIAH EASLEY on 02/11/18 100 Lovastatin (Lovastatin) 20 Mg Tablet, 20 MG PO HS, (Reported) Entered as Reported by: URIAH EASLEY on 02/11/18 100 Magnesium Oxide (Magox 400) 400 Mg Tablet, 400 MG PO BID Prescribed by: MYRANDA POSADA on 02/07/19 1749 Metformin HCl (Metformin HCl) 1,000 Mg Tablet, 1,000 MG PO BID, (Reported) Entered as Reported by: URIAH EASLEY on 01/08/19 0843 Mineral Oil/Petrolatum,White (Refresh Lacri-Lube Ointment) 3.5 Gm Oint...g., OU HS PRN for DRY EYES, (Reported) Entered as Reported by: URIAH EASLEY on 05/26/18 0908 [place] 3 Polyunsat Fatty Acids (Fish Oil 1,000 mg Capsule) 1,000 Mg Cap, 1,000 MG PO DAILY, (Reported) Entered as Reported by: URIAH EASLEY on 02/11/18 1004 Pantoprazole Sodium (Pantoprazole Sodium) 40 Mg Tablet.dr, 40 MG PO DAILY, (Reported) Entered as Reported by: URIAH EASLEY on 05/26/18 0858 Polyvinyl Alcohol/Povidone (Artificial Tears Drops) 15 Ml Drops, 1-2 DROPS OU QID PRN for DRY EYES, (Reported) Entered as Reported by: URIAH EASLEY on 02/11/18 1004 Potassium Chloride (Potassium Chloride) 10 Meq Capsule.er, 10 MEQ PO DAILY, (Reported) Entered as Reported by: URIAH EASLEY on 01/27/19 0928 Review of Systems Review of Systems Constitutional: no symptoms reported Respiratory: No Symptoms Reported Cardiovascular: See HPI, Chest Pain, Other (PT IS UNAWARE OF IRREGULAR HEART BEAT) Gastrointestinal: Denies Abdominal Pain, Denies Diarrhea; Nausea; Denies Vomiting Genitourinary: No Symptoms Reported Musculoskeletal: see HPI, back pain Skin: no symptoms reported Psychiatric/Neurological: See HPI, Anxiety; Denies Numbness, Denies Paresthesia; Other (VERY POOR MEMORY) Hematologic/Lymphatic: See HPI Past Nkguovh-Yromtz-Ogjhmd Hx Patient Social History Tobacco Use?: No Smoking Status: Former Smoker Smokeless Tobacco Frequency: Former User Use of E-Cig and/or Vaping dev: No Substance use?: No Alcohol Use?: No Pt feels they are or have been: No Immunizations Up To Date Tetanus Booster (TDap): Unknown PED Vaccines UTD: No Influenza Vaccine Up-to-Date: Yes; Up-to-Date Second COVID19 Vaccination Maycol: 02/19 COVID19 Vaccine Gis Physical Scientist: SHARON Seasonal Allergies Seasonal Allergies: No Past Medical History Surgeries: Yes (cyst from breast bone removed, carpal tunnel, cardiac stents; BACK SURGERY) Cardiac, Coronary Stent, Orthopedic Respiratory: Yes COPD Currently Using CPAP: No Currently Using BIPAP: No Cardiac: Yes (CHF) Atrial Fibrillation, Cardiomyopathy, Chronic Edema/Swelling, Coronary Artery Disease, Heart Attack, High Cholesterol, Hypertension, Irregular Heartbeat Neurological: Yes Dementia, Neuropathy Reproductive Disorders: No Female 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 SPECIAL AGENT History: Menopausal Sexually Transmitted Disease: No HIV/AIDS: No Genitourinary: No Gastrointestinal: Yes Gastroesophageal Reflux, Gastrointestinal Bleed Musculoskeletal: Yes Arthritis, Chronic Back Pain Endocrine: Yes (OBESE) Diabetes, Non-Insulin dep HEENT: Yes Cataract Loss of Vision: Denies Hearing Impairment: Denies Cancer: No Psychosocial: Yes Depression Integumentary: No Blood Disorders: Yes (anemia) Adverse Reaction/Blood Tranf: No Family Medical History Cardiovascular disease 19 FATHER 19 MOTHER FH: stroke FHx: diabetes mellitus Heart Disease, Diabetes, Hypertension 01/2019--EGD 04/2020--STRESS TEST. Physical Exam Vital Signs Vital Signs - First Documented 07/15/22 23:34 Temp 36.0 Pulse 93 Resp 22 B/P (MAP) 142/81 (101) Pulse Ox 96 O2 Delivery Room Air Capillary Refill : Less Than 3 Seconds Height, Weight, BMI Height: 5'1.50" Weight: 191lbs. 8.0oz. [id number]; 38.37 BMI Method:Stated General Appearance: No Apparent Distress, WD/WN, Anxious HEENT: PERRL/EOMI; No Pale Conjunctivae (L), No Pale Conjunctivae (R), No Scleral Icterus (L), No Scleral Icterus (R) Neck: Normal Inspection Respiratory: Chest Non Tender, Normal Breath Sounds, No Accessory Muscle Use, No Respiratory Distress Cardiovascular: Irregularly Irregular Gastrointestinal: Non Tender, Soft, Other (VERY LARGE ABDOMEN--UNABLE TO PAL SYLVESTER ORGANS) Extremity: Normal Capillary Refill, Non Tender, No Calf Tenderness, Pedal Edema (TRACE TO 1+ EDEMA BILATERALLY) Neurologic/Psychiatric: Alert, No Motor/Sensory Deficits, 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 ORIENTED TO PLACE, KNOWS WHY SHE IS HERE AND GROSSLY ORIENTED TO TIME OF YEAR ) Skin: Normal Color, Warm/Dry Progress/Results/Core Measures Results/Orders Lab Results Laboratory Tests Test 07/15/22 23:50 Range/Units White Blood Count 10.3 4.3-11.0 10^3/uL Red Blood Count 3.79 L 3.80-5.11 10^6/uL Hemoglobin 11.4 L 11.5-16.0 g/dL Hematocrit 36 35-52 % Mean Corpuscular Volume 95 80-99 fL Mean Corpuscular Hemoglobin 30 25-34 pg Mean Corpuscular Hemoglobin Concent 32 32-36 g/dL Red Cell Distribution Width 16.5 H 10.0-14.5 % Platelet Count 256 130-400 10^3/uL Mean Platelet Volume 11.4 9.0-12.2 fL Immature Granulocyte % (Auto) 0 % Neutrophils (%) (Auto) 87 H 42-75 % Lymphocytes (%) (Auto) 6 L 12-44 % Monocytes (%) (Auto) 4 0-12 % Eosinophils (%) (Auto) 2 0-10 % Basophils (%) (Auto) 0 0-10 % Neutrophils # (Auto) 9.0 H 1.8-7.8 10^3/uL Lymphocytes # (Auto) 0.6 L 1.0-4.0 10^3/uL Monocytes # (Auto) 0.4 0.0-1.0 10^3/uL Eosinophils # (Auto) 0.2 0.0-0.3 10^3/uL Basophils # (Auto) 0.0 0.0-0.1 10^3/uL Immature Granulocyte # (Auto) 0.0 0.0-0.1 10^3/uL Neutrophils % (Manual) 89 % Lymphocytes % (Manual) 9 % Eosinophils % (Manual) 2 % Blood Morphology Comment NORMAL Prothrombin Time 13.6 12.2-14.7 SEC INR Comment 1.0 0.8-1.4 Activated Partial Thromboplast Time 27 24-35 SEC D-Dimer 1.47 H 0.00-0.49 UG/ML Sodium Level 141 135-145 MMOL/L Potassium Level 4.2 3.6-5.0 MMOL/L Chloride Level 101 98-107 MMOL/L Carbon Dioxide Level 24 21-32 MMOL/L Anion Gap 16 H 5-14 MMOL/L Blood Urea Nitrogen 48 H 7-18 MG/DL Creatinine 2.04 H 0.60-1.30 MG/DL Estimat Glomerular Filtration Rate 24 BUN/Creatinine Ratio 24 Glucose Level 268 H 70-105 MG/DL Calcium Level 9.3 8.5-10.1 MG/DL Corrected Calcium 9.5 8.5-10.1 MG/DL Magnesium Level 2.0 1.6-2.4 MG/DL Total Bilirubin 0.6 0.1-1.0 MG/DL Aspartate Amino Transf (AST/SGOT) 38 H 5-34 U/L Alanine Aminotransferase (ALT/SGPT) 21 0-55 U/L Alkaline Phosphatase 107 40-136 U/L Total Creatine Kinase 67 29-168 U/L Creatine Kinase MB 3.2 <6.6 NG/ML Myoglobin 79.2 10.0-92.0 NG/ML Troponin I < 0.028 <0.028 NG/ML B-Type Natriuretic Peptide 326.9 H <100.0 PG/ML Total Protein 7.3 6.4-8.2 GM/DL Albumin 3.8 3.2-4.5 GM/DL Amylase Level 21 L 25-125 U/L Lipase 16 8-78 U/L My Orders Orders - SUPA ROLON DO Ekg Tracing (07/15/22 23:33) Ed Iv/Invasive Line Start (07/15/22 23:46) O2 (07/15/22 23:46) Monitor-Rhythm Ecg Trace Only (07/15/22 23:46) Cbc With Automated Diff (07/15/22 23:46) Magnesium (07/15/22 23:46) Comprehensive Metabolic Panel (07/15/22 23:46) Myoglobin Serum (07/15/22 23:46) Protime With Inr (07/15/22 23:46) Partial Thromboplastin Time (07/15/22 23:46) O2 (07/15/22 23:46) Ed Iv/Invasive Line Start (07/15/22 23:46) Creatine Kinase (07/15/22 23:46) Creatine Kinase Mb (07/15/22 23:46) Lipase (07/15/22 23:46) Amylase (07/15/22 23:46) Bnp Jay (07/15/22 23:46) Fibrin Degradation Products (07/15/22 23:46) Troponin I Jay (07/15/22 23:46) Nitroglycerin 0.4 Mg Btl 25's (Nitrostat (07/16/22 00:00) Enoxaparin Injection (Lovenox Injection) (07/16/22 00:00) Chest 1 View, Ap/Pa Only (07/16/22 00:01) Ondansetron Injection (Zofran Injectio (07/16/22 00:45) Morphine Injection (Morphine Injection (07/16/22 00:45) Manual Differential (07/15/22 23:50) Furosemide Injection (Lasix Injection) (07/16/22 01:00) Medications Given in ED Current Medications Medications Dose Ordered Sig/Pat Route Start Time Stop Time Status Last Admin Dose Admin Enoxaparin Sodium 100 mg ONCE ONCE SC 07/16/22 00:00 07/16/22 00:01 DC 07/16/22 00:03 100 MG Furosemide 40 mg ONCE ONCE IVP 07/16/22 01:00 07/16/22 01:01 DC 07/16/22 01:40 40 MG Morphine Sulfate 2 mg ONCE ONCE IVP 07/16/22 00:45 07/16/22 00:46 DC 07/16/22 00:58 2 MG Nitroglycerin 0.4 mg UD PRN SL 07/16/22 00:00 07/16/22 00:28 0.4 MG Ondansetron HCl 4 mg ONCE ONCE IVP 07/16/22 00:45 07/16/22 00:46 DC 07/16/22 00:58 4 MG Vital Signs/I&O 07/15/22 23:34 Temp 36.0 Pulse 93 Resp 22 B/P (MAP) 142/81 (101) Pulse Ox 96 O2 Delivery Room Air Blood Pressure Mean: 69 FSBG Bedside Testing Finger Stick Blood Glucose: 242 Blood Glucose Action Taken: FROM LAB BLOOD DRAW - SLIDING SCALE A Progress Progress Note : Progress Note GIVEN NTG X 2--NO RELIEF PT'S SEEMS TO BE FIXATED MORE ON GETTING THE BED POSITION AND HER POSITION IN THE BED, THAN ABOUT HER CHEST PAIN EVENTUALLY GAVE MORPHINE WITH MUCH IMPROVEMENT IN PAIN IN HER CHEST AND BACK PT LITERALLY PUSHING THE CALL LIGHT EVERY FEW MINUTES, FOR VARIOUS NEEDS, INCLUDING IMMEDIATELY AFTER SOMEONE HAS JUST ANSWERED HER CALL LIGHT AND LEFT THE ROOM. VITALS STABLE NO TACHYCARDIA NO HYPOTENSION O2 SATS DID DROP TO MID TO UPPER 80'S WHILE SHE WAS LAYING ON HER SIDE, O2 PLACED AT 2L/NC AND O2 SATS UP TO MID 90'S FOR REMAINDER OF ER STAY. PT HAS HISTORY OF COPD. Initial ECG Impression Date: Jul 15, 2022 Initial ECG Impression Time: 23:41 Initial ECG Rate: 90 Initial ECG Rhythm: A Fib/Flutter Initial ECG Comparisson: Unchanged Diagnostic Imaging Comments CXR--MILD CHF, PENDING RADIOLOGIST REVIEW Reviewed: Reviewed by Me CP/AMI: Aspirin, ECG, Nitrates Departure Communication (Admissions) 0105--SPOKE WITH DR. OLMSTEAD, HOSPITALIST. ACCEPTS PT FOR ADMIT. 0107--SPOKE WITH DR. DAY FOR CARDIOLOGY CONSULT. WILL GIVE SINGLE DOSE OF LOVENOX HERE FOR CP AND ATRIAL FIBRILLATION AND ELEVATED D-DIMER, AND WILL GET V/Q SCAN IN AM. Impression Primary Impression: Chest pain Additional Impressions: Chronic atrial fibrillation NIDDM HX OF CAD WITH STENTS HTN (hypertension) Chronic renal insufficiency Mild congestive heart failure Memory loss or impairment Disposition: ADMITTED INPATIENT Condition: Improved Admissions Decision to Admit Reason: Admit from ER (General) Decision to Admit/Date: Jul 16, 2022 Time/Decision to Admit Time: 01:05 Departure-Patient Inst. Referrals: ELIZABETH MALDONADO DO (PCP) Primary Care Physician SUPA ROLON DO Jul 16, 2022 07:11
--- NOTE | 2022-07-16 07:51 | Consultation-Cardiology ---
HPI-Cardiology Cardiology Consultation: Date of Consultation 07/16/22 Time Seen by a Provider: 08:30 Date of Admission 07-15-22 Attending Physician Nilton Kyle DO Admitting Physician Admitting Physician: Norm Youssef MD Attending Physician: Norm Youssef MD Consulting Physician Lesley Blandon MD HPI: Chief Complaint: Chest pain A-fib with RVR Ms. Montoya is a 81 yr old female admitted to 511 from the ED with c/o CP. She reports yesterday afternoon she was having abd pain and bloating. She reports she ate 1/2 a hot dog, but d/t abd discomfort she was unable to eat anymore than half. She states she was having chills and generally felt unwell. She reports she had some nausea yesterday as well. She reports she went to bed, but was unable to sleep very well. She reports she then started having mi-sternal chest pain/pressure which radiated straight through. She reports she felt SOB and continued to feel nauseated She reports chills. She states the chest discomfort was constant. She reports the chest discomfort did not change with movement. She reports having palpitations. She denies any vomiting or diarrhea. She reports the chest discomfort resolved once she arrived to her room and has not returned. She does report upper abdominal tenderness with palpitation. Review of Systems-Cardiology Review of Systems Constitutional: chills; No fever; malaise Eyes: No vision change Ears/Nose/Throat: No epistaxis, No recent hearing loss Respiratory: As described under HPI Cardiovascular: As described under HPI Gastrointestinal: As described under HPI Genitourinary: No dysuria, No hematuria Musculoskeletal: no symptoms reported Skin: No rash on exposed areas, No ulcerations on exposed areas Psychiatric/Neurological: No anxiety, No depression, No seizure, No focal weakness, No syncope Hematologic: No bleeding abnormalities HRQ-Besncb-[id number] Hx Patient Social History Smoking Status: Former Smoker Former smoker/When Quit: Jul 19, 1988 2nd Hand Smoke Exposure: No Have you traveled recently?: No Alcohol Use?: No Pt feels they are or have been: No Immunizations Up To Date Tetanus Booster (TDap): Unknown Date of Pneumonia Vaccine: Jul 19, 2011 Date of Influenza Vaccine: May 28, 2018 Past Medical History PMH As described under Assessment. Family Medical History Family Medical History: She reports her mother and father both had CAD. Family History: Cardiovascular disease 19 FATHER 19 MOTHER FH: stroke FHx: diabetes mellitus Allergies and Home Medications Allergies Coded Allergies: NKANo Known Allergies (Verified Allergy, Unknown, 03/26/06) Patient Home Medication List Allopurinol (Allopurinol) 100 Mg Tablet, 100 MG PO DAILY, (Reported) Entered as Reported by: CHRISSIE JACOB on 07/16/221423 Last Action: Reviewed Aspirin (Aspirin EC) 81 Mg Tablet.dr, 81 MG PO DAILY, (Reported) Entered as Reported by: CHRISSIE JACOB on 07/16/221424 Last Action: Reviewed Carvedilol (Carvedilol) 12.5 Mg Tablet, 12.5 MG PO BID, (Reported) Entered as Reported by: CHRISSIE JACOB on 07/16/221423 Last Action: Reviewed Cholecalciferol (Vitamin D3) (Vitamin D3) 25 Mcg (1000 Unit) Capsule, 25 MCG PO DAILY, (Reported) Entered as Reported by: CHRISSIE JACOB on 07/16/221423 Last Action: Reviewed Dapagliflozin Propanediol (Farxiga) 5 Mg Tablet, 5 MG PO DAILY, (Reported) Entered as Reported by: CHRISSIE JACOB on 07/16/221423 Last Action: Reviewed Furosemide (Furosemide) 80 Mg Tablet, 80 MG PO DAILY, (Reported) Entered as Reported by: URIAH EASLEY on 01/27/19927 Last Action: Reviewed Gabapentin (Neurontin) 300 Mg Capsule, 300 MG PO HS, (Reported) Entered as Reported by: CHRISSIE JACOB on 07/16/221423 Last Action: Reviewed Glimepiride (Glimepiride) 1 Mg Tablet, 1 MG PO BID, (Reported) Entered as Reported by: CHRISSIE JACOB on 07/16/221423 Last Action: Reviewed Losartan Potassium (Losartan Potassium) 100 Mg Tablet, 100 MG PO DAILY, (Reported) Entered as Reported by: URIAH EASLEY on 02/11/181003 Last Action: Reviewed Lovastatin (Lovastatin) 20 Mg Tablet, 20 MG PO HS, (Reported) Entered as Reported by: URIAH EASLEY on 02/11/181003 Last Action: Reviewed [place]-3 Acid Ethyl Esters ([place]-3 Acid Ethyl Esters) 1 Gram Capsule, 1 GM PO DAILY, (Reported) Entered as Reported by: CHRISSIE JACOB on 07/16/221423 Last Action: Reviewed Pantoprazole Sodium (Pantoprazole Sodium) 40 Mg Tablet.dr, 40 MG PO DAILY, (Reported) Entered as Reported by: URIAH EASLEY on 05/26/18 0858 Last Action: Reviewed Potassium Chloride (K-Tab ER) 10 Meq Tablet.er, 10 MEQ PO DAILY, (Reported) Entered as Reported by: CHRISSIE JACOB on 07/16/221423 Last Action: Reviewed Tramadol HCl (Tramadol HCl) 50 Mg Tablet, 50 MG PO QID PRN for PAIN-MODERATE (5- 7), (Reported) Entered as Reported by: CHRISSIE JACOB on 07/16/221423 Last Action: Reviewed Discontinued Medications Amlodipine Besylate (Amlodipine Besylate) 5 Mg Tablet, 5 MG PO DAILY, (Reported) Discontinued Reason: No Longer Taking Entered as Reported by: URIAH EASLEY on 02/11/18 100 Last Action: Discontinued Carvedilol (Carvedilol) 25 Mg Tablet, 25 MG PO BID, (Reported) Discontinued Reason: No Longer Taking Entered as Reported by: URIAH EASLEY on 02/11/18 100 Last Action: Discontinued Cefdinir (Cefdinir) 300 Mg Capsule, 300 MG PO BID Discontinued Reason: No Longer Taking Prescribed by: SUPA ROLON on 05/27/20 1922 Last Action: Discontinued Cholecalciferol (Vitamin D3) (Vitamin D3) 1,000 Unit Capsule, 1,000 UNIT PO DAILY, (Reported) Discontinued Reason: No Longer Taking Entered as Reported by: URIAH EASLEY on 02/11/18 100 Last Action: Discontinued Famotidine (Famotidine) 20 Mg Tablet, 20 MG PO DAILY Discontinued Reason: No Longer Taking Prescribed by: JENNIFER WASHINGTON on 01/29/19 1041 Last Action: Discontinued Gabapentin (Gabapentin) 300 Mg Capsule, 300 MG PO 1999,2299, (Reported) Discontinued Reason: No Longer Taking Entered as Reported by: LYSSA PRADO on 08/11/15 0950 Last Action: Discontinued Glimepiride (Glimepiride) 4 Mg Tablet, 4 MG PO BID PRN for BLOOD SUGAR >200, (Reported) Discontinued Reason: No Longer Taking Entered as Reported by: URIAH EASLEY on 01/08/1943 Last Action: Discontinued Hydrocodone/Acetaminophen (Hydrocodone-Acetamin 5-325 mg) 1 Each Tablet, 1 EACH PO Q4-6 HOURS PRN for PAIN Discontinued Reason: No Longer Taking Prescribed by: SUPA ROLON on 05/27/201921 Last Action: Discontinued Magnesium Oxide (Magox 400) 400 Mg Tablet, 400 MG PO BID Discontinued Reason: No Longer Taking Prescribed by: MYRANDA POSADA on 02/07/19 174 Last Action: Discontinued Metformin HCl (Metformin HCl) 1,000 Mg Tablet, 1,000 MG PO BID, (Reported) Discontinued Reason: No Longer Taking Entered as Reported by: URIAH EASLEY on 01/08/1943 Last Action: Discontinued Mineral Oil/Petrolatum,White (Refresh Lacri-Lube Ointment) 3.5 Gm Oint...g., OU HS PRN for DRY EYES, (Reported) Discontinued Reason: No Longer Taking Entered as Reported by: URIAH EASLEY on 05/26/18 0908 Last Action: Discontinued [place] 3 Polyunsat Fatty Acids (Fish Oil 1,000 mg Capsule) 1,000 Mg Cap, 1,000 MG PO DAILY, (Reported) Discontinued Reason: No Longer Taking Entered as Reported by: URIAH EASLEY on 02/11/18 1004 Last Action: Discontinued Polyvinyl Alcohol/Povidone (Artificial Tears Drops) 15 Ml Drops, 1-2 DROPS OU QID PRN for DRY EYES, (Reported) Discontinued Reason: No Longer Taking Entered as Reported by: URIAH EASLEY on 02/11/18 1004 Last Action: Discontinued Potassium Chloride (Potassium Chloride) 10 Meq Capsule.er, 10 MEQ PO DAILY, (Reported) Discontinued Reason: No Longer Taking Entered as Reported by: URIAH EASLEY on 01/27/19 0928 Last Action: Discontinued Physical Exam-Cardiology Physical Exam Vital Signs/I&O 07/16/22 07/16/22 07/16/22 07/16/22 03:06 03:08 03:14 03:30 Pulse 108 114 104 101 Resp B/P (MAP) 148/69 (95) 137/89 (97) 124/70 (83) Pulse Ox 95 98 93 O2 Delivery Room Air Room Air Room Air 07/16/22 07/16/22 07/16/22 11/15/22 03:45 04:24 04:45 05:00 Pulse 112 101 108 122 Resp 18 17 15 21 B/P (MAP) 125/71 (85) 127/54 (84) 124/64 (81) 105/62 (76) Pulse Ox 93 92 94 91 O2 Delivery Room Air Room Air Room Air Room Air 07/16/22 07/16/22 07/16/22 07/16/22 06:08 07:00 07:46 08:00 Temp 36.6 Pulse 114 95 105 Resp 21 18 B/P (MAP) 112/48 (69) 108/65 (79) Pulse Ox 95 97 O2 Delivery Room Air Nasal Cannula Nasal Cannula O2 Flow Rate 2.50 2.00 07/16/22 07/16/22 11:58 13:00 Temp 37.7 Pulse 96 118 Resp 14 B/P (MAP) 107/64 (78) Pulse Ox 96 O2 Delivery Nasal Cannula O2 Flow Rate 2.50 Capillary Refill : Less Than 3 Seconds Constitutional: AAO x 3, well-developed, well-nourished HEENT: PERRL, hearing is well preserved, oral hygience is good Neck: No carotid bruit; carotid pulses are 2 + bilaterally Respiratory: No accessory muscle use, No respiratory distress; chest expansion is symmetric, chest is bilaterally symmetric, other (good air entry) Cardiovascular: irregularly irregular, S1 and S2 Gastrointestinal: tender (mild abd tenderness with palpation), soft, round; No guarding; abnormal bowel sounds Extremities: swelling (mild bilat LE swelling) Neurologic/Psychiatric: No grossly intact (moves all extremities) Skin: No rash on exposed areas, No ulcerations on exposed areas Data Review Labs Laboratory Tests 07/15/22 23:50: White Blood Count 10.3, Red Blood Count 3.79L, Hemoglobin 11.4L, Hematocrit 36, Mean Corpuscular Volume 95, Mean Corpuscular Hemoglobin 30, Mean Corpuscular Hemoglobin Concent 32, Red Cell Distribution Width 16.5H, Platelet Count 256, Mean Platelet Volume 11.4, Immature Granulocyte % (Auto) 0, Neutrophils (%) (Auto) 87H, Lymphocytes (%) (Auto) 6L, Monocytes (%) (Auto) 4, Eosinophils (%) (Auto) 2, Basophils (%) (Auto) 0, Neutrophils # (Auto) 9.0H, Lymphocytes # (Auto) 0.6L, Monocytes # (Auto) 0.4, Eosinophils # (Auto) 0.2, Basophils # (Auto) 0.0, Immature Granulocyte # (Auto) 0.0, Neutrophils % (Manual) 89, Lymphocytes % (Manual) 9, Eosinophils % (Manual) 2, Blood Morphology Comment NORMAL, Prothrombin Time 13.6, INR Comment 1.0, Activated Partial Thromboplast Time 27, D-Dimer 1.47H, Sodium Level 141, Potassium Level 4.2, Chloride Level 101, Carbon Dioxide Level 24, Anion Gap 16H, Blood Urea Nitrogen 48H, Creatinine 2.04H, Estimat Glomerular Filtration Rate 24, BUN/Creatinine Ratio 24, Glucose L evel 268H, Calcium Level 9.3, Corrected Calcium 9.5, Magnesium Level 2.0, Total Bilirubin 0.6, Aspartate Amino Transf (AST/SGOT) 38H, Alanine Aminotransferase (ALT/SGPT) 21, Alkaline Phosphatase 107, Total Creatine Kinase 67, Creatine Kinase MB 3.2, Myoglobin 79.2, Troponin I < 0.028, B-Type Natriuretic Peptide 326.9H, Total Protein 7.3, Albumin 3.8, Amylase Level 21L, Lipase 16 07/16/22 04:24: White Blood Count 11.2H, Red Blood Count 4.10, Hemoglobin 12.1, Hematocrit 39, Mean Corpuscular Volume 96, Mean Corpuscular Hemoglobin 30, Mean Corpuscular Hemoglobin Concent 31L, Red Cell Distribution Width 16.5H, Platelet Count 220, Mean Platelet Volume 11.7, Immature Granulocyte % (Auto) 0, Neutrophils (%) (Auto) 96H, Lymphocytes (%) (Auto) 1L, Monocytes (%) (Auto) 2, Eosinophils (%) (Auto) 0, Basophils (%) (Auto) 0, Neutrophils # (Auto) 10.8H, Lymphocytes # (Auto) 0.1L, Monocytes # (Auto) 0.2, Eosinophils # (Auto) 0.0, Basophils # (Auto) 0.0, Immature Granulocyte # (Auto) 0.0, Sodium Level 140, Potassium Level 5.0, Chloride Level 101, Carbon Dioxide Level 21, Anion Gap 18H, Blood Urea Nitrogen 48H, Creatinine 1.97H, Estimat Glomerular Filtration Rate 25, BUN/Creatinine Ratio 24, Glucose Level 242H, Calcium Level 9.2, Troponin I < 0.028, Triglycerides Level 77, Cholesterol Level 157, LDL Cholesterol Direct 93, VLDL Cholesterol 15, HDL Cholesterol 44 07/16/22 07:22: Troponin I < 0.028 07/16/22 11:47: Glucometer 172H Radiology NAME: MARIYA MONTOYA [facility] REC#: [id number] PT STATUS: ADM IN : 1940 PHYSICIAN: SUPA ROLON DO ADMIT DATE: 07/16/22/[facility] Draft Date of Exam:07/16/22 CHEST 1 VIEW, AP/PA ONLY INDICATION: Chest pain. TECHNIQUE: Single view chest 12:24 AM. CORRELATION STUDY: 02/07/2019 FINDINGS: Generally stable severity cardiac enlargement. Coronary artery stent over left heart border. Calcification of the aortic arch. Pulmonary vascular congestion and mild edema is noted, appearing changed from prior. No definitive infiltrate. Likely overlying artifact over the right lower chest and axillary region. IMPRESSION: 1. At least mild severity congestive heart failure. Dictated on workstation # [id number] Dict: 07/16/22 0647 Trans: 07/16/22 0651 [facility] [id number] Interpreted by: GENTRY DOYLE DO Electronically signed by: ECG Impression ECG Comment A-fib with RVR A/P-Cardiology Assessment/Admission Diagnosis Chest pain - undetermined etiology - no evidence of ACS Chronic atrial fibrillation - presented with a-fib with RVR - Holter of 06/09/15 showed a fib with a controlled vent response and with isolated PVCs or aberrantly conducted beats - Previously on chronic anticoagulation for stroke prophylaxis with Pradaxa - currently being held (see note above) - ECG on 07/23/21: AF with a controlled vent response Coronary artery disease - primarily involving the LAD artery where she had in-stent stenosis and proximal edge stenosis of a previously placed Taxus 3 x 24mm stent (2005). The proximal two-thirds of the old stent and area proximal to the proximal edge of the old stent was stented with Promus Premier 3 x 20mm stent. this resulted in resolution of stenoses to 0% residual. The distal edge of the old stent and the area just distal to the distal edge of the stent underwent balloon angioplasty with Emerge 2.5 x 15mmballoon with reduction of the stenoses of up to about 70% to less and 30%. The rest of the coronary arteries have mild disease. LVEF 65%. Elevated LVEDP. No significant MR per cardiac cath of July 19, 2014 - MPI of Apr 25, 2020 showed no evidence of any signif myocardial ischemia or infarction. LVEF 56% - Echo of Apr 24, 2020 showed LVEF 50-55%, LA mod dilated; mildly calcified mitral annulus with mild MR; AoV thickening, consistent with sclerosis; RVSP 30 mmHg Chronic diastolic CHF - last hospitalization with decomp in early Aug 2015 - clinically compensated Multiple GI bleeds - leading to severe anemia, last in late December 2018. - GI bleed in March 2018 and May 2018 requiring multiple transfusions) EGD by Dr. Gamino showed gastric ulcer (PPI tx); - EGD of 01-28-[address] Archer: bleeding duodenal ulcer in 2nd portion of duo denum, injected with lidocaine w/epinephrine Iron deficiency anemia - secondary to chronic GI blood loss from H. pylori infection and gastritis as well as gastric AVMs. Status post antibiotic therapy as well as fulguration for gastric AVMs. - This is followed by Dr Zafar who has advised against reinitiation of oral anticoagulation (see his note of 04/08/19 and BASILIO Burkett ematology/oncology note of Jul 10, 2019) and Apr 24, 2020 Left thalamic infarct - of unknown age on an MRI scan of 05/09/11. 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 Maturity onset diabetes mellitus. - managed by PCP Hyperlipidemia -being treated with lovastatin. Manged by PCP GI - History of hiatal hernia and gastroesophageal reflux. Obesity - with a body mass index of 36 Ortho - Degenerative joint disease. Hypertension, labile - currently well controlled. CKD 3 Discussion and Recomendations Chest discomfort of undetermined etiology - no evidence of ACS - rec echo to eval structure and function - advised MPI to eval perfusion - she does not wish to do so at this time; she would rather go home and have MPI as an out pt Dyspnea - VQ lung scan pending - - not suitable for CT with contrast d/t CKD 3 Chronic a-fib - continue home medications - not suitable for OAC for reasons noted above Abd discomfort - management per medical services CKD 3 Further recs will be based on her hospital course We would like to thank Dr. Goldman for this consult Clinical Quality Measures AMI/AHF: ASA po Prior to arrival: Yes JACOB PARSONS Jul 16, 2022 07:51
--- NOTE | 2022-07-16 08:18 | History & Physical-Hospitalist ---
History of Present Illness HPI/Chief Complaint Pt is a 81yoCF with a PMH of CAD, CHF, a fib who presented to the ER due to chest pain. She reports to the ER due to chest pain, She reports that she developed chest pain yesterday afternoon that was associated with back pain and mild shortness of breath. She denies any diaphoresis or vomiting but was nauseated with it. To me she denied any SOB. She states she feels back to normal now and has no complaints. She actually is hopeful to be able to go home and all she would like at this time is a drink of water. Source: patient Date Seen 07/16/22 Time Seen by a Provider: 08:13 Attending Physician Nilton Kyle DO PCP Admitting Physician: Norm Youssef MD Attending Physician: Norm Youssef MD Referring Physician Date of Admission Jul 16, 2022 at 01:05 Home Medications & Allergies Home Medications Reviewed patient Home Medication Reconciliation performed by pharmacy medication reconciliations endoscopic technician and/or nursing. Patients Allergies have been reviewed. Allergies Allergies Coded Allergies NKANo Known Allergies (Verified Allergy, Unknown, 03/26/06) Past Dnfishv-Wbichp-[id number] Hx Patient Social History Employed/Student: retired Tobacco Use?: No Smoking Status: Former Smoker Smokeless Tobacco Frequency: Former User Use of E-Cig and/or Vaping dev: No Substance use?: No Alcohol Use?: No Pt feels they are or have been: No Immunizations Up To Date Date of Influenza Vaccine: May 28, 2018 Second COVID19 Vaccination Maycol: 02/19 Tetanus Booster (TDap): Unknown PED Vaccines UTD: No Date of Pneumonia Vaccine: Jul 19, 2011 Seasonal Allergies Seasonal Allergies: No Current Status Advance Directives: No Communicates: Verbally Primary Language: [place] Preferred Spoken Language: [place] Is interpretation needed?: No Sensory deficits: Vision impairment Implanted or Applied Medical D: None Past Medical History Surgeries: Cardiac, Coronary Stent, Orthopedic COPD Currently Using CPAP: No Currently Using BIPAP: No Atrial Fibrillation, Cardiomyopathy, Chronic Edema/Swelling, Coronary Artery Disease, Heart Attack, High Cholesterol, Hypertension, Irregular Heartbeat Dementia, Neuropathy 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 Review of Systems Constitutional: no symptoms reported EENTM: no symptoms reported Respiratory: no symptoms reported Cardiovascular: chest pain Gastrointestinal: nausea; No vomiting Genitourinary: no symptoms reported Musculoskeletal: no symptoms reported Skin: no symptoms reported Psychiatric/Neurological: No Symptoms Reported Physical Exam Physical Exam Vital Signs Vital Signs - First Documented 07/15/22 07/16/22 23:34 07:46 Temp 36.0 Pulse 93 Resp 22 B/P (MAP) 142/81 (101) Pulse Ox 96 O2 Delivery Room Air O2 Flow Rate 2.50 Capillary Refill : Less Than 3 Seconds Height, Weight, BMI Height: 5'1.50" Weight: 191lbs. 8.0oz. [id number]; 38.37 BMI Method:Stated General Appearance: No Apparent Distress, WD/WN, Obese HEENT: PERRL/EOMI, Moist Mucous Membranes Neck: Normal Inspection, Supple Respiratory: Lungs Clear, No Accessory Muscle Use, No Respiratory Distress Cardiovascular: Regular Rate, Rhythm, No Murmur Gastrointestinal: Normal Bowel Sounds, Non Tender, Soft Extremity: Normal Capillary Refill, No Calf Tenderness, No Pedal Edema Neurologic/Psychiatric: Alert, Oriented x3, Normal Mood/Affect Results Results/Procedures Labs Laboratory Tests 07/15/22 23:50 07/16/22 04:24 Patient resulted labs reviewed. Imaging: Reviewed Imaging Report Imaging [facility] [place] NAME: MARIYA ARMIJO Abhijit [facility] REC#: [id number] PT STATUS: ADM Mila : 1940 PHYSICIAN: SUPA ROLON DO ADMIT DATE: 07/16/22/[facility] Signed Date of Exam:07/16/22 CHEST 1 VIEW, AP/PA ONLY INDICATION: Chest pain. TECHNIQUE: Single view chest 12:24 AM. CORRELATION STUDY: 02/07/2019 FINDINGS: Generally stable severity cardiac enlargement. Coronary artery stent over left heart border. Calcification of the aortic arch. Pulmonary vascular congestion and mild edema is noted, appearing changed from prior. No definitive infiltrate. Likely overlying artifact over the right lower chest and axillary region. IMPRESSION: 1. At least mild severity congestive heart failure. Dictated by: Dictated on workstation # [id number] Dict: 07/16/22 0647 Trans: 07/16/22 1014 [facility] [id number] Interpreted by: GENTRY DOYLE DO Electronically signed by: GENTRY DOYLE DO 07/16/22 1014 Assessment/Plan Admission Diagnosis Chest pain Admission Status: Observation Assessment and Plan chest pain CAD Admitted for observation Moderately elevated d dimer V/Q scan ordered- already on anticoagulation troponin negative x3 Cardiology recommended stress test but patient declined Echo ordered Potentially home this afternoon if still doing well Diagnosis/Problems Diagnosis/Problems (1) Chronic atrial fibrillation Status: Acute (2) HTN (hypertension) Status: Acute (3) CAD (coronary artery disease) Status: Chronic Clinical Quality Measures AMI/AHF: ASA po Prior to arrival: Yes OPAL NOVAK MD Jul 16, 2022 08:18
[2022-07-16] MEDS ORDERED: ASPIRIN E.C. 81 MG (ECOTRIN) TAB PO SCH (09:00)
--- NOTE | 2022-07-16 13:20 | Consultation-Cardiology ---
HPI-Cardiology Cardiology Consultation: Date of Consultation 07/16/22 Time Seen by a Provider: 12:45 Date of Admission Attending Physician Nilton Kyle DO Admitting Physician Admitting Physician: Norm Youssef MD Attending Physician: Norm Youssef MD Consulting Physician SINDY WIGGINS MD, MA, FACP, FACC, [facility], CCDS Physician requesting consult: Dr Goldman HPI: Chief Complaint: Reason for Card consult: Chest pain, A-fib with RVR Ms. Montoya is a 81 yr old female admitted to 511 from the ED with c/o CP. She reports yesterday afternoon she was having abd pain and bloating. She reports she ate 1/2 a hot dog, but d/t abd discomfort she was unable to eat anymore than half. She states she was having chills and generally felt unwell. She reports she had some nausea yesterday as well. She reports she went to bed, but was u nable to sleep very well. She reports she then started having mi-sternal chest pain/pressure which radiated straight through. She reports she felt SOB and continued to feel nauseated She reports chills. She states the chest discomfort was constant. She reports the chest discomfort did not change with movement. She reports having palpitations. She denies any vomiting or diarrhe a. She reports the chest discomfort resolved once she arrived to her room and has not returned. She does report upper abdominal tenderness with palpitation. Review of Systems-Cardiology Review of Systems Constitutional: chills; No fever; malaise Eyes: No vision change Ears/Nose/Throat: No epistaxis, No recent hearing loss Respiratory: As described under HPI Cardiovascular: As described under HPI Gastrointestinal: As described under HPI Genitourinary: No dysuria, No hematuria Musculoskeletal: no symptoms reported Skin: No rash on exposed areas, No ulcerations on exposed areas Psychiatric/Neurological: No anxiety, No depression, No seizure, No focal weakness, No syncope Hematologic: No bleeding abnormalities HRV-Qtoamp-Jpsrlt Hx Patient Social History Employed/Student: retired Smoking Status: Former Smoker Former smoker/When Quit: Jul 19, 1988 2nd Hand Smoke Exposure: No Have you traveled recently?: No Alcohol Use?: No Pt feels they are or have been: No Immunizations Up To Date Tetanus Booster (TDap): Unknown Date of Pneumonia Vaccine: Jul 19, 2011 Date of Influenza Vaccine: May 28, 2018 Past Medical History PMH As described under Assessment. Family Medical History Family Medical History: She reports her mother and father both had CAD. Family History: Cardiovascular disease 19 FATHER 19 MOTHER FH: stroke FHx: diabetes mellitus Allergies and Home Medications Allergies Coded Allergies: ARSALANANo Known Allergies (Verified Allergy, Unknown, 03/26/06) Patient Home Medication List Home Medication List Reviewed: Yes Amlodipine Besylate (Amlodipine Besylate) 5 Mg Tablet, 5 MG PO DAILY, (Reported) Entered as Reported by: URIAH EASLEY on 02/11/18 1004 Carvedilol (Carvedilol) 25 Mg Tablet, 25 MG PO BID, (Reported) Entered as Reported by: URIAH EASLEY on 02/11/18 1004 Cefdinir (Cefdinir) 300 Mg Capsule, 300 MG PO BID Prescribed by: SUPA ROLON on 05/27/20 192 Cholecalciferol (Vitamin D3) (Vitamin D3) 1,000 Unit Capsule, 1,000 UNIT PO DAILY, (Reported) Entered as Reported by: URIAH EASLEY on 02/11/18 1004 Famotidine (Famotidine) 20 Mg Tablet, 20 MG PO DAILY Prescribed by: JENNIFER WASHINGTON on 01/29/19 1041 Furosemide (Furosemide) 80 Mg Tablet, 80 MG PO DAILY, (Reported) Entered as Reported by: URIAH EASLEY on 01/27/19 0928 Gabapentin (Gabapentin) 300 Mg Capsule, 300 MG PO 2000,2300, (Reported) Entered as Reported by: LYSSA PRADO on 08/11/15 0950 Glimepiride (Glimepiride) 4 Mg Tablet, 4 MG PO BID PRN for BLOOD SUGAR >200, ( Reported) Entered as Reported by: URIAH EASLEY on 01/08/19 0843 Hydrocodone/Acetaminophen (Hydrocodone-Acetamin 5-325 mg) 1 Each Tablet, 1 EACH PO Q4-6 HOURS PRN for PAIN Prescribed by: SUPA ROLON on 05/27/20 192 Losartan Potassium (Losartan Potassium) 100 Mg Tablet, 100 MG PO DAILY, (Reported) Entered as Reported by: URIAH EASLEY on 02/11/18 1004 Lovastatin (Lovastatin) 20 Mg Tablet, 20 MG PO HS, (Reported) Entered as Reported by: URIAH EASLEY on 02/11/18 1004 Magnesium Oxide (Magox 400) 400 Mg Tablet, 400 MG PO BID Prescribed by: MYRANDA POSADA on 02/07/19 1749 Metformin HCl (Metformin HCl) 1,000 Mg Tablet, 1,000 MG PO BID, (Reported) Entered as Reported by: URIAH EASLEY on 01/08/19 0843 Mineral Oil/Petrolatum,White (Refresh Lacri-Lube Ointment) 3.5 Gm Oint...g., OU HS PRN for DRY EYES, (Reported) Entered as Reported by: URIAH EASLEY on 05/26/18 0908 Wing 3 Polyunsat Fatty Acids (Fish Oil 1,000 mg Capsule) 1,000 Mg Cap, 1,000 MG PO DAILY, (Reported) Entered as Reported by: URIAH EASLEY on 02/11/18 1004 Pantoprazole Sodium (Pantoprazole Sodium) 40 Mg Tablet.dr, 40 MG PO DAILY, (Reported) Entered as Reported by: URIAH EASLEY on 05/26/18 0858 Polyvinyl Alcohol/Povidone (Artificial Tears Drops) 15 Ml Drops, 1-2 DROPS OU QID PRN for DRY EYES, (Reported) Entered as Reported by: URIAH EASLEY on 02/11/18 1004 Potassium Chloride (Potassium Chloride) 10 Meq Capsule.er, 10 MEQ PO DAILY, (Reported) Entered as Reported by: URIAH EASLEY on 01/27/19 0928 Physical Exam-Cardiology Physical Exam Vital Signs/I&O 07/16/22 07/16/22 07/16/22 07/16/22 01:46 03:06 03:08 03:14 Pulse 84 108 114 104 Resp 18 19 12 B/P (MAP) 120/84 148/69 (95) 137/89 (97) Pulse Ox 100 95 98 O2 Delivery Room Air Room Air Room Air 07/16/22 07/16/22 07/16/22 07/16/22 03:30 03:45 04:24 04:45 Pulse 101 112 101 108 Resp 18 18 17 15 B/P (MAP) 124/70 (83) 125/71 (85) 127/54 (84) 124/64 (81) Pulse Ox 93 93 92 94 O2 Delivery Room Air Room Air Room Air Room Air 07/16/22 07/16/22 07/16/22 07/16/22 05:00 06:08 07:00 07:46 Temp 36.6 Pulse 122 114 95 105 Resp 21 21 18 B/P (MAP) 105/62 (76) 112/48 (69) 108/65 (79) Pulse Ox 91 95 O2 Delivery Room Air Room Air Nasal Cannula O2 Flow Rate 2.50 07/16/22 07/16/22 08:00 11:58 Temp 37.7 Pulse 96 Resp 14 B/P (MAP) 107/64 (78) Pulse Ox 97 96 O2 Delivery Nasal Cannula Nasal Cannula O2 Flow Rate 2.00 2.50 Capillary Refill : Less Than 3 Seconds Constitutional: AAO x 3, well-developed, well-nourished HEENT: PERRL, hearing is well preserved, oral hygience is good Neck: No carotid bruit; carotid pulses are 2 + bilaterally Respiratory: No accessory muscle use, No respiratory distress; chest expansion is symmetric, chest is bilaterally symmetric, other (good air entry) Cardiovascular: irregularly irregular, S1 and S2 Gastrointestinal: tender (mild abd tenderness with palpation), soft, round; No guarding; abnormal bowel sounds Extremities: swelling (mild bilat LE swelling) Neurologic/Psychiatric: No grossly intact (moves all extremities) Skin: No rash on exposed areas, No ulcerations on exposed areas Data Review Labs Laboratory Tests 07/15/22 23:50: White Blood Count 10.3, Red Blood Count 3.79L, Hemoglobin 11.4L, Hematocrit 36, Mean Corpuscular Volume 95, Mean Corpuscular Hemoglobin 30, Mean Corpuscular Hemoglobin Concent 32, Red Cell Distribution Width 16.5H, Platelet Count 256, Mean Platelet Volume 11.4, Immature Granulocyte % (Auto) 0, Neutrophils (%) (Auto) 87H, Lymphocytes (%) (Auto) 6L, Monocytes (%) (Auto) 4, Eosinophils (%) (Auto) 2, Basophils (%) (Auto) 0, Neutrophils # (Auto) 9.0H, Lymphocytes # (Auto) 0.6L, Monocytes # (Auto) 0.4, Eosinophils # (Auto) 0.2, Basophils # (Auto) 0.0, Immature Granulocyte # (Auto) 0.0, Neutrophils % (Manual) 89, Lymphocytes % (Manual) 9, Eosinophils % (Manual) 2, Blood Morphology Comment NORMAL, Prothrombin Time 13.6, INR Comment 1.0, Activated Partial Thromboplast Time 27, D-Dimer 1.47H, Sodium Level 141, Potassium Level 4.2, Chloride Level 101, Carbon Dioxide Level 24, Anion Gap 16H, Blood Urea Nitrogen 48H, Creatinine 2.04H, Estimat Glomerular Filtration Rate 24, BUN/Creatinine Ratio 24, Glucose Level 268H, Calcium Level 9.3, Corrected Calcium 9.5, Magnesium Level 2.0, Total Bilirubin 0.6, Aspartate Amino Transf (AST/SGOT) 38H, Alanine Aminotransferase (ALT/SGPT) 21, Alkaline Phosphatase 107, Total Creatine Kinase 67, Creatine Kinase MB 3.2, Myoglobin 79.2, Troponin I < 0.028, B-Type Natriuretic Peptide 326.9H, Total Protein 7.3, Albumin 3.8, Amylase Level 21L, Lipase 16 07/16/22 04:24: White Blood Count 11.2H, Red Blood Count 4.10, Hemoglobin 12.1, Hematocrit 39, Mean Corpuscular Volume 96, Mean Corpuscular Hemoglobin 30, Mean Corpuscular Hemoglobin Concent 31L, Red Cell Distribution Width 16.5H, Platelet Count 220, Mean Platelet Volume 11.7, Immature Granulocyte % (Auto) 0, Neutrophils (%) (Auto) 96H, Lymphocytes (%) (Auto) 1L, Monocytes (%) (Auto) 2, Eosinophils (%) (Auto) 0, Basophils (%) (Auto) 0, Neutrophils # (Auto) 10.8H, Lymphocytes # (Auto) 0.1L, Monocytes # (Auto) 0.2, Eosinophils # (Auto) 0.0, Basophils # (Auto) 0.0, Immature Granulocyte # (Auto) 0.0, Sodium Level 140, Potassium Level 5.0, Chloride Level 101, Carbon Dioxide Level 21, Anion Gap 18H, Blood Urea Nitrogen 48H, Creatinine 1.97H, Estimat Glomerular Filtration Rate 25, BUN/Creatinine Ratio 24, Glucose Level 242H, Calcium Level 9.2, Troponin I < 0.028, Triglycerides Level 77, Cholesterol Level 157, LDL Cholesterol Direct 93, VLDL Cholesterol 15, HDL Cholesterol 44 07/16/22 07:22: Troponin I < 0.028 07/16/22 11:47: Glucometer 172H A/P-Cardiology Assessment/Admission Diagnosis Chest pain - undetermined etiology - no evidence of ACS Chronic atrial fibrillation - presented with a-fib with RVR - Holter of 06/09/15 showed a fib with a controlled vent response and with isolated PVCs or aberrantly conducted beats - Previously on chronic anticoagulation for stroke prophylaxis with Pradaxa - cu rrently being held (see note above) - ECG on 07/23/21: AF with a controlled vent response Coronary artery disease - primarily involving the LAD artery where she had in-stent stenosis and proximal edge stenosis of a previously placed Taxus 3 x 24mm stent (2005). The proximal two-thirds of the old stent and area proximal to the proximal edge of the old stent was stented with Promus Premier 3 x 20mm stent. this resulted in resolution of stenoses to 0% residual. The distal edge of the old stent and the area just distal to the distal edge of the stent underwent balloon angioplasty with Emerge 2.5 x 15mmballoon with reduction of the stenoses of up to about 70% to less and 30%. The rest of the coronary arteries have mild disease. LVEF 65%. Elevated LVEDP. No significant MR per cardiac cath of July 19, 2014 - MPI of Apr 25, 2020 showed no evidence of any signif myocardial ischemia or in farction. LVEF 56% - Echo of Apr 24, 2020 showed LVEF 50-55%, LA mod dilated; mildly calcified mitral annulus with mild MR; AoV thickening, consistent with sclerosis; RVSP 30 mmHg Chronic diastolic CHF - last hospitalization with decomp in early Aug 2015 - clinically compensated Multiple GI bleeds - leading to severe anemia, last in late December 2018. - GI bleed in March 2018 and May 2018 requiring multiple transfusions) EGD by Dr. Gamino showed gastric ulcer (PPI tx); - EGD of 01-28-[address] Archer: bleeding duodenal ulcer in 2nd portion of duodenum, injected with lidocaine w/epinephrine Iron deficiency anemia - secondary to chronic GI blood loss from H. pylori infection and gastritis as well as gastric AVMs. Status post antibiotic therapy as well as fulguration for gastric AVMs. - This is followed by Dr Zafar who has advised against reinitiation of oral anticoagulation (see his note of 04/08/19 and Manuel Maldonado APRN hematology/oncology note of Jul 10, 2019) and Apr 24, 2020 Left thalamic infarct - of unknown age on an MRI scan of 05/09/11. 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 Maturity onset diabetes mellitus. - managed by PCP Hyperlipidemia -being treated with lovastatin. Manged by PCP GI - History of hiatal hernia and gastroesophageal reflux. Obesity - with a body mass index of 36 Ortho - Degenerative joint disease. Hypertension, labile - currently well controlled. CKD 3 Discussion and Recomendations Chest discomfort of undetermined etiology - no evidence of ACS - rec echo to eval structure and function - advised MPI to eval perfusion - she does not wish to do so at this time; she would rather go home and have MPI as an out pt Dyspnea - VQ lung scan pending - not suitable for CT with contrast d/t CKD 3 Chronic a-fib - continue home medications - not suitable for OAC for reasons noted above Abd discomfort - management per medical services CKD 3 Ok for d/c from cardiac standpoint We would like to thank Dr. Goldman for this consult Clinical Quality Measures AMI/AHF: ASA po Prior to arrival: Yes SINDY WIGGINS MD FACP FAC CCDS Jul 16, 2022 13:19
--- NOTE | 2022-07-16 13:24 | Discharge Inst-Simple/Standard ---
Discharge Inst-Standard Patient Instructions/Follow Up Plan of Care/Instructions/FU: Please continue to take your medications as written. Please follow up with your primary care doctor to follow up this hospital stay. Activity as Tolerated: Yes Discharge Diet: ADA Diet Return to The Hospital For: Chest pain, shortness of breath, fever, weakness, if you feel you are getting worse. OPAL NOVAK MD Jul 16, 2022 13:09
[2022-07-16] MEDS ORDERED: TRAM50TA3 PO (14:24)
[2022-07-16] MEDS ORDERED: POTA10TA PO (14:24)
[2022-07-16] MEDS ORDERED: CARV12.53 PO (14:24)
[2022-07-16] MEDS ORDERED: OMEG-218 PO (14:24)
[2022-07-16] MEDS ORDERED: GLIM1TAB4 PO (14:24)
[2022-07-16] MEDS ORDERED: GABA300C PO (14:24)
[2022-07-16] MEDS ORDERED: ALLO100T PO (14:24)
[2022-07-16] MEDS ORDERED: CHOL100048 PO (14:24)
[2022-07-16] MEDS ORDERED: DAPA5TAB PO (14:24)
[2022-07-16] MEDS ORDERED: ASPI-1238 PO (14:25)
--- NOTE | 2022-07-16 14:45 | D/C HH Face to Face Order ---
D/C Face to Face Orders Instructions for Patient Via [facility], Patient Instructions/FollowUp: Please continue to take your medications as written. Please follow up with your primary care doctor to follow up this hospital stay. Physician to follow Patient: Dr Kyle Discharge Diet for Home: No Restrictions Patient Data-Allergies,Ht & Wt Patient Allergies: Coded Allergies: NKANo Known Allergies (Verified Allergy, Unknown, 03/26/06) Height (Feet): 5 Height (Inches): 1.50 Weight (Pounds): 191 Weight (Ounces): 8.0 Home Health Need/Face to Face Date of Face to Face: Jul 16, 2022 Clinical Findings: Generalized weakness and fatigue, Shortness of breath I have seen Pt [id number]: Yes Discharged To: Home Diagnosis/Conditions: CAD, CHF Patient is Homebound due to: Muscle weakness, Shortness of breath/distress Homebound Status Due to the above stated illness, injury or surgical procedure (medical condition or diagnosis) and associated clinical findings, the patient is homebound because of his/her inability to leave home except with aid of a supportive device and/or person AND leaving the home requires a considerable and taxing effort or is medically contraindicated. Pt req the following assistanc: Aid of another person, Walker Home Health Nursing Orders Home Health Services Order: Nursing Services, Certification Engineer-Evaluate & Treat, Physical Therapy-Evaluate & Treat Home Health Infusion Therapy Line Start Date: Jul 15, 2022 Therapy Orders Therapy Orders: OT (must have SN or PT order), Physical Therapy Therapy Specific Orders: Eval assistive deivces, Teach enviro modifications/safety, Gait training, Increase strength/endurance Certify Stmt I certify that this patient is under my care and that I, a nurse practitioner or a physician; a assistant county engineer working with me, had a face to face encounter that - meets the physician face to face encounter requirements with this patient as dated. OPAL NOVAK MD Jul 16, 2022 14:45
--- NOTE | 2022-07-16 14:58 | Physical Therapy Evaluation ---
PT Evaluation-General Medical Diagnosis Admission Date Jul 16, 2022 at 01:05 Medical Diagnosis: CP/A-fib Onset Date: Jul 16, 2022 Therapy Diagnosis Therapy Diagnosis: debility/weakness Height/Weight Height (Feet): 5 Height (Inches): 1.50 Weight (Pounds): 191 Weight (Ounces): 8.0 Precautions Precautions/Isolations: Fall Prevention, Standard Precautions Referral Physician: Jones Reason for Referral: Evaluation/Treatment Medical History Pertinent Medical History: Atrial Fib, Arthritis, CVA, DM, Heart Failure, HTN, [place], Neuropathy Current History EMS secondary to CP/SOA Reviewed History: Yes Social History Home: Apartment Current Living Status: Alone Entry Into Home: Level Entry Prior Prior Level of Function SCALE: Activities may be completed with or without assistive devices. 0-Eyljowgcnv-mrvyfoq completes the activity by him/herself with no assistance from a helper. 5-Set-up or Clean-up Assistance-helper sets up or cleans up; patient completes activity. [place] assists only prior to or following the activity. 4-Supervision or Touching Assistance-helper provides verbal cues and/or touching/steadying and/or contact guard assistance as patient completes activity. Assistance may be provided throughout the activity or intermittently. 3-Partial/Moderate Assistance-helper does LESS THAN HALF the effort. [place] lifts, holds or supports trunk or limbs, but provides less than half the effort. 2-Substantial/Maximal Assistance-helper does MORE THAN HALF the effort. [place] lifts or holds trunk or limbs and provides more than half the effort. 6-Vhsdvrsof-wcjyzl does ALL the effort. Patient does none of the effort to complete the activity. Or, the assistance of 2 or more helpers is required for the patient to complete the activity. If activity was not attempted, code reason: 7-Patient Refused. 9-Not Applicable-not attempted and the patient did not perform the activity before the current illness, exacerbation or injury. 10-Not Attempted due to Environmental Limitations-(lack of equipment, weather restraints, etc.). 88-Not Attempted due to Medical Conditions or Safety Concerns. Bed Mobility: 6 Transfers (B,C,W/C): 6 Gait: 6 Stairs: 9 Indoor Mobility (Ambulation): Independent Stairs: Not [place]lical[place] Prior Devices Use: Walker PT Evaluation-Current Subjective Patient agrees to PT. Friend present Objective Patient Orientation: Normal For Age Attachments: Oxygen ROM/Strength ROM Lower Extremities bilateral LE WFL Strength Lower Extremities 4-/5 grossly bilateral LE all planes Integumentary/Posture Bowel Incontinence: No Bladder Incontinence: No Posture WFL Neuromuscular (Tone, Coordination, Reflexes) grossly intact Sensory Vision: Functional Hearing: Functional Transfers Lying to Sitting/Side of Bed(Q: 6 Sit to Stand (QC): 4 Chair/Zzb-sd-Nxdgb Xfer(QC): 4 Gait Mode of Locomotion: Walk Anticipated Mode of Locomotion: Walk Walk 10 feet (QC): 4 Walk 50 ft with 2 Turns(QC): 4 Walk 150 ft (QC): 4 Distance: 175' Gait Assistive Device: FWW Comments/Gait Description VC's for body placement in FWW (extended UE's with use) Wheelchair Training Does the Pt Use a Wheelchair?: No Balance Sitting Static: Normal Sitting Dynamic: Normal Standing Static: Normal Standing Dynamic: Normal Treatment Ambulated RA with SAO2 decreasing to 84% with recovery on 2L to >90%. Physician and RT notified Assessment/Needs Patient will benefit from skilled PT to address functional mobility and pulmonary function to ensure safe return to home at maximum LOF. Rehab Potential: Fair PT [facility] Goals Answerer Goals PT [facility] Goals Time Frame: Jul 27, 2022 Roll Left & Right (QC): 6 Sit to Lying (QC): 6 Lying-Sitting on Side/Bed(QC): 6 Sit to Stand (QC): 6 Chair/Lgj-ff-Zvomb Xfer(QC): 6 Toilet Transfer (QC): 6 Walk 10 feet (QC): 6 Walk 50ft with 2 Turns (QC): 6 Walk 150 ft (QC): 6 PT Plan Problem List Problem List: Activity Tolerance, Safety Treatment/Plan Treatment Plan: Continue Plan of Care Treatment Plan: Education, Functional Activity Edward, Functional Strength, Gait, Safety, Therapeutic Exercise, Transfers Treatment Duration: Jul 27, 2022 Frequency: 6 times per week Estimated Hrs Per Day: .25 hour per day Discharge Recommendations Therapy Discharge Recommendati: Post Acute PT Time Time In: 1430 Time Out: 1442 DATE: Jul 16, 2022 Total Billed Treatment Time: 12 Total Billed Treatment 1 visit EVMod 12 min RUDDY VARGAS PT Jul 16, 2022 14:58
[2022-07-16] MEDS ORDERED: ZINC OXIDE 40% (Butt Paste MAX/Desitin) 57 gm TOP PRN (16:30)
[2022-07-16] MEDS ORDERED: MICONAZOLE 2% POWDER (DESENEX AF) 90 GM TOP SCH (16:30)
--- NOTE | 2022-07-16 16:30 | Diagnostic Imaging Report ---
INDICATION: Chest pain and chronic atrial fibrillation. TECHNIQUE: The patient was administered 5.5 mCi of technetium 99m MAA intravenously and imaging over the chest was performed in multiple obliquities. FINDINGS: There appears to be fairly homogeneous perfusion of both lungs. No definite moderate or large pleural-based perfusion defects are seen. IMPRESSION: Normal perfusion lung scan. Dictated by: Dictated on workstation # [id number]
== END 2022-07-16 14:47 | disposition home health service (06) ==
LOC: EDUNIT# 23:32 → ER 23:34 → CSD 23:35 → INTOOBSV 07-16 01:05 → UNDOADMOB 07-16 01:05 → UNDODISOB 07-16 18:00
PROVIDERS: ADMIT Internal Medicine; ATTEND Internal Medicine
DX: R07.89 Other chest pain (principal); I25.10 Atherosclerotic heart disease of native coronary artery without angina pectoris; I48.20 Chronic atrial fibrillation, unspecified; I50.32 Chronic diastolic (congestive) heart failure; D50.0 Iron deficiency anemia secondary to blood loss (chronic); I13.0 Hypertensive heart and chronic kidney disease with heart failure and stage 1 through stage 4 chronic kidney disease, or unspecified chronic kidney disease; G51.0 Bell's palsy; I77.9 Disorder of arteries and arterioles, unspecified; I63.9 Cerebral infarction, unspecified; E11.9 Type 2 diabetes mellitus without complications; E66.9 Obesity, unspecified; E78.5 Hyperlipidemia, unspecified; M19.90 Unspecified osteoarthritis, unspecified site; N18.30 Chronic kidney disease, stage 3 unspecified; Z68.38 Body mass index [BMI] 38.0-38.9, adult; Z87.891 Personal history of nicotine dependence; Z79.899 Other long term (current) drug therapy
CPT/HCPCS: 71045; 78580; 80048; 80053; 80061; 82150; 82550; 82553; 82947; 83690; 83735; 83874; 83880; 84484 ×2; 85007; 85025; 85027; 85379; 85610; 85730; 93005 ×2; 93041; 94761; 97162; 99284; A9540; C8929; G0378; 36415; 93306

== ENCOUNTER → 2022-08-06 | Outpatient (CLI) | payer MEDICARE, MEDICAID ==
[~2022-08-06] MED LIST changes: +ALLO100T PO; +CARV12.53 PO; +CATHETER FLUSH 10 ML SYR IVP PRN; +CHOL100048 PO; +DAPA5TAB PO; +GABA300C PO; +OMEG-218 PO; +POTA10TA PO; +REGADENOSON 0.4 MG/5 ML SYR (LEXISCAN) IV ONE; +TRAM50TA3 PO
[2022-08-06 13:46] VITALS: BP 132/66
--- NOTE | 2022-08-07 04:43 | STRESS TEST ---
DATE OF SERVICE: 08/06/2022 RESTING AND POST REGADENOSON TECHNETIUM-99M TETROFOSMIN SPECT CT IMAGING ORDERING PHYSICIAN: Dr. Blandon. PRIMARY CARE PHYSICIAN: Dr. Kyle. CLINICAL DIAGNOSIS: Coronary artery disease. Baseline images were carried out after injection of 9.58 mCi of technetium 99m Tetrofosmin. This was followed by 0.4 mg regadenoson and 29.4 mCi of technetium-99m tetrofosmin for stress imaging. The electrocardiogram showed atrial fibrillation with a controlled ventricular response. The electrocardiogram did not change significantly with regadenoson infusion. The patient tolerated the procedure well. Review of images at rest and following stress did not indicate any distinct perfusion defects consistent with significant myocardial ischemia or infarction. Some degree of breast attenuation is seen both at rest and following regadenoson infusion. Gated images show normal global left ventricular systolic function with normal regional wall motion. Left ventricular ejection fraction is calculated to be 67%. CONCLUSIONS: 1. No evidence of significant myocardial ischemia or infarction on this study. 2. Normal regional wall motion. 3. Normal global left ventricular systolic function with a calculated ejection fraction of 67%. Job ID: [id number] DocumentID: [id number] Dictated Date: 08/06/2022 17:46:33 Wire Basket Maker Date: 08/07/2022 04:41:00 Dictated By: SINDY BLANDON MD; MARY; FACP; FACC;
== END ==
LOC: CARD 11:18
PROVIDERS: ATTEND Internal Medicine Cardiovascular Disease
DX: I25.10 Atherosclerotic heart disease of native coronary artery without angina pectoris (principal)
CPT/HCPCS: 78452; 93017; A9502

== ENCOUNTER 2023-02-10 08:43 | Inpatient (IN) | payer MEDICARE, MEDICAID ==
[~2023-02-10] VITALS: Ht 157.5 cm; Wt 94.4 kg
[~2023-02-10 08:43] MED LIST changes: -CATHETER FLUSH 10 ML SYR IVP PRN; -LOSA100T57 PO; +LOSA100T58 PO; -POTA10CA43 PO; +POTA10CA44 PO; -REGADENOSON 0.4 MG/5 ML SYR (LEXISCAN) IV ONE
[2023-02-10] MEDS ORDERED: inSUlin (REGULAR) HUMAN 1 UNIT/0.01 ML (CHARGE PER UNIT) IV STA (08:59)
[2023-02-10] MEDS ORDERED: NS IV 1000 ML 1,000 ML IV SCH (09:00)
[2023-02-10 09:06] LABS: BASOPHILS # (AUTO) 0.1 10^3/uL (0.0-0.1); BASOPHILS % (AUTO) 0 % (0-10); EOSINOPHILS % (AUTO) 0 % (0-10); HEMATOCRIT 36 % (35-52); LYMPHOCYTES # (AUTO) 0.2 10^3/uL (1.0-4.0); LYMPHOCYTES % (AUTO) 1 % (12-44); MEAN CORPUSCULAR HEMOGLOBIN 30 pg (25-34); MEAN CORPUSCULAR HGB CONC 33 g/dL (32-36); MEAN CORPUSCULAR VOLUME 89 fL (80-99); MEAN PLATELET VOLUME 12.8 fL (9.0-12.2); MONOCYTES # (AUTO) 0.8 10^3/uL (0.0-1.0); MONOCYTES % (AUTO) 3 % (0-12); NEUTROPHILS # (AUTO) 22.1 10^3/uL (1.8-7.8); NEUTROPHILS % (AUTO) 95 % (42-75); PLATELET COUNT 207 10^3/uL (130-400); WHITE BLOOD COUNT 23.3 10^3/uL (4.3-11.0)
[2023-02-10 09:16] LABS: INR 1.1 (0.8-1.4); PROTHROMBIN TIME PATIENT 14.3 SEC (12.2-14.7)
[2023-02-10 09:35] LABS: BAND NEUTROPHILS 12 %; BASOPHILS % (MANUAL) 0 %; EOSINOPHILS % (MANUAL) 0 %; LYMPHOCYTES % (MANUAL) 2 %; MONOCYTES % (MANUAL) 3 %; NEUTROPHILS % (MANUAL) 83 %
[2023-02-10 09:36] LABS: ANISOCYTOSIS SLIGHT
[2023-02-10 09:51] LABS: CHLORIDE 94 MMOL/L (98-107); POTASSIUM 4.7 MMOL/L (3.6-5.0); SODIUM 131 MMOL/L (135-145)
[2023-02-10 09:52] LABS: CALCIUM 8.3 MG/DL (8.5-10.1)
[2023-02-10 09:53] LABS: TOTAL PROTEIN 5.9 GM/DL (6.4-8.2)
[2023-02-10 09:54] LABS: CARBON DIOXIDE 24 MMOL/L (21-32)
--- NOTE | 2023-02-10 09:54 | ED General ---
General Chief Complaint: Cardiac/General Problems Stated Complaint: HYPOTENSION Nursing Triage Note: PT TO [facility] BY [facility] WITH CC OF HYPOTENSION, PT WENT DOWN THIS MORNING, STATES SHE DID NOT REALLY FALL AND IS NOT HURT. 65/39 AT TRIAGE, PT A&O X'S 4. Source of Information: Patient Exam Limitations: No Limitations History of Present Illness Date Seen by Provider: Feb 10, 2023 Time Seen by Provider: 08:55 Initial Comments Here with report of weakness. Apparently she is having nausea and vomiting last night and laid down. She states that she was feeling better after laying down. She got up this morning and try to go the bathroom but became quite weak. She was reaching for her walker when she was having the weakness but was able to lean back against the bed and sat herself down without hitting her head. She does have history of atrial fibrillation and she is on Eliquis. Reports taking medicines as directed. She is also diabetic and EMS reports her blood sugar was too high to read. They did initiate IV and initiated 1 L bolus of normal saline which we will continue. Patient denies diarrhea. She denies fever or chills. Does have history of facial droop on the left that she states is long-term and not new. Denies cough, chest pain or shortness of breath. Main complaint is weakness. EMS reports that she was hypotensive in the field in the range of the 70s systolic and that continues on arrival. Timing/Duration: 12 Hours, Getting Worse Severity: Moderate Associated Systoms: No Chest Pain, No Cough, No Fever/Chills, No Nausea/Vomiting, No Shortness of Air; Weakness Allergies and Home Medications Allergies Coded Allergies: NKANo Known Allergies (Verified Allergy, Unknown, 03/26/06) Patient Home Medication List Home Medication List Reviewed: Yes Allopurinol (Allopurinol) 100 Mg Tablet, 100 MG PO DAILY, (Reported) Entered as Reported by: CHRISSIE JACOB on 07/16/22 142 Aspirin (Aspirin EC) 81 Mg Tablet.dr, 81 MG PO DAILY, (Reported) Entered as Reported by: CHRISSIE JACOB on 07/16/22 142 Carvedilol (Carvedilol) 12.5 Mg Tablet, 12.5 MG PO BID, (Reported) Entered as Reported by: CHRISSIE JACOB on 07/16/22 142 Cholecalciferol (Vitamin D3) (Vitamin D3) 25 Mcg (1000 Unit) Capsule, 25 MCG PO DAILY, (Reported) Entered as Reported by: CHRISSIE JACOB on 07/16/22 142 Dapagliflozin Propanediol (Farxiga) 5 Mg Tablet, 5 MG PO DAILY, (Reported) Entered as Reported by: CHRISSIE JACOB on 07/16/22 142 Furosemide (Furosemide) 80 Mg Tablet, 80 MG PO DAILY, (Reported) Entered as Reported by: URIAH EASLEY on 01/27/19 0928 Gabapentin (Neurontin) 300 Mg Capsule, 300 MG PO HS, (Reported) Entered as Reported by: CHRISSIE JACOB on 07/16/22 142 Glimepiride (Glimepiride) 1 Mg Tablet, 1 MG PO BID, (Reported) Entered as Reported by: CHRISSIE JACOB on 07/16/22 142 Losartan Potassium (Losartan Potassium) 100 Mg Tablet, 100 MG PO DAILY, (Reported) Entered as Reported by: URIAH EASLEY on 02/11/18 100 Lovastatin (Lovastatin) 20 Mg Tablet, 20 MG PO HS, (Reported) Entered as Reported by: URIAH EASLEY on 02/11/18 100 Viper-3 Acid Ethyl Esters (Viper-3 Acid Ethyl Esters) 1 Gram Capsule, 1 GM PO DAILY, (Reported) Entered as Reported by: CHRISSIE JACOB on 07/16/22 142 Pantoprazole Sodium (Pantoprazole Sodium) 40 Mg Tablet.dr, 40 MG PO DAILY, (Reported) Entered as Reported by: URIAH EASLEY on 05/26/18 0858 Potassium Chloride (K-Tab ER) 10 Meq Tablet.er, 10 MEQ PO DAILY, (Reported) Entered as Reported by: CHRISSIE JACOB on 07/16/22 142 Tramadol HCl (Tramadol HCl) 50 Mg Tablet, 50 MG PO QID PRN for PAIN-MODERATE (5- 7), (Reported) Entered as Reported by: CHRISSIE JACOB on 07/16/22 142 Review of Systems Review of Systems Constitutional: see HPI, dizziness; No fever; weakness EENTM: No nose congestion, No throat pain Respiratory: No cough, No short of breath Cardiovascular: No chest pain, No palpitations; syncope Gastrointestinal: No nausea, No vomiting Genitourinary: no symptoms reported Musculoskeletal: No back pain; muscle weakness Skin: no symptoms reported Psychiatric/Neurological: See HPI Past Xebbpgw-Xfeiyl-Orixmt Hx Patient Social History Tobacco Use?: Yes Smoking Status: Former Smoker Substance use?: No Alcohol Use?: No Immunizations Up To Date Tetanus Booster (TDap): Unknown PED Vaccines UTD: No First/Initial COVID19 Vaccinat: 02/19 Second COVID19 Vaccination Maycol: 02/19 Third COVID19 Vaccination Date: 02/19 Seasonal Allergies Seasonal Allergies: No Past Medical History Surgery/Hospitalization HX: A FIB Surgeries: Yes (cyst from breast bone removed, carpal tunnel, cardiac stents; BACK SURGERY) Cardiac, Coronary Stent, Orthopedic Respiratory: Yes COPD Currently Using CPAP: No Currently Using BIPAP: No Cardiac: Yes (CHF) Atrial Fibrillation, Cardiomyopathy, Chronic Edema/Swelling, Coronary Artery Disease, Heart Attack, High Cholesterol, Hypertension, Irregular Heartbeat Neurological: Yes Dementia, Neuropathy Reproductive Disorders: No Female 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 [employer] History: Menopausal Sexually Transmitted Disease: No HIV/AIDS: No Genitourinary: No Gastrointestinal: Yes Gastroesophageal Reflux, Gastrointestinal Bleed Musculoskeletal: Yes Arthritis, Chronic Back Pain Endocrine: Yes (OBESE) Diabetes, Non-Insulin dep HEENT: Yes Cataract Loss of Vision: Denies Hearing Impairment: Denies Cancer: No Psychosocial: Yes Depression Integumentary: No Blood Disorders: Yes (anemia) Adverse Reaction/Blood Tranf: No Family Medical History Reviewed Nursing Family Hx Cardiovascular disease 19 FATHER 19 MOTHER FH: stroke FHx: diabetes mellitus Heart Disease, Diabetes, Hypertension 01/2019--EGD 04/2020--STRESS TEST. Physical Exam-Suspected Sepsis Physical Exam Vital Signs Vital Signs - First Documented 02/10/23 08:48 Temp 36.3 Pulse 80 Resp 20 B/P (MAP) 65/39 (48) Pulse Ox 98 O2 Delivery Nasal Cannula O2 Flow Rate 2.00 Capillary Refill : Less Than 3 Seconds Blood Pressure Mean: 48 Height, Weight, BMI Height: 5'1.50" Weight: 191lbs. 8.0oz. 86.757117ur; 36.00 BMI Method:Stated General Appearance: No Apparent Distress, WD/WN HEENT: PERRL/EOMI, Pharynx Normal Neck: Non Tender, Supple Respiratory: Lungs Clear, Normal Breath Sounds Cardiovascular: Regular Rate, Rhythm, No Murmur Gastrointestinal: Non Tender, Soft Back: Normal Inspection, No CVA Tenderness, No Vertebral Tenderness Extremity: Normal Range of Motion, Non Tender Neurologic/Psychiatric: Alert, Oriented x3, Other (Mild facial droop noted on the left which patient states is chronic and unchanged. Full range of motion all extremities.) Skin: normal color, warm/dry Focused Exam Lactate Level 02/10/23 08:56: Lactic Acid Level 3.03*H 02/10/23 11:15: Lactic Acid Level 4.40*H Lactic Acid Level Laboratory Tests Test 02/10/23 08:56 02/10/23 11:15 Lactic Acid Level 3.03 MMOL/L (0.50-2.00) *H 4.40 MMOL/L (0.50-2.00) *H Progress/Results/Core Measures Suspected Sepsis SIRS Temperature: Pulse: 80 Respiratory Rate: 20 Laboratory Tests 02/10/23 08:56: White Blood Count 23.3H Blood Pressure 65 /39 Mean: 48 02/10/23 08:56: Lactic Acid Level 3.03*H 02/10/23 11:15: Lactic Acid Level 4.40*H Laboratory Tests 02/10/23 08:56: INR Comment 1.1, Platelet Count 207 02/10/23 09:34: Creatinine 3.13H, Total Bilirubin 1.9H Results/Orders Lab Results Laboratory Tests Test 02/10/23 08:56 02/10/23 09:34 02/10/23 10:04 02/10/23 10:15 Range/Units White Blood Count 23.3 H 4.3-11.0 10^3/uL Red Blood Count 4.07 3.80-5.11 10^6/uL Hemoglobin 12.0 11.5-16.0 g/dL Hematocrit 36 35-52 % Mean Corpuscular Volume 89 80-99 fL Mean Corpuscular Hemoglobin 30 25-34 pg Mean Corpuscular Hemoglobin Concent 33 32-36 g/dL Red Cell Distribution Width 17.1 H 10.0-14.5 % Platelet Count 207 130-400 10^3/uL Mean Platelet Volume 12.8 H 9.0-12.2 fL Immature Granulocyte % (Auto) 1 % Neutrophils (%) (Auto) 95 H 42-75 % Lymphocytes (%) (Auto) 1 L 12-44 % Monocytes (%) (Auto) 3 0-12 % Eosinophils (%) (Auto) 0 0-10 % Basophils (%) (Auto) 0 0-10 % Neutrophils # (Auto) 22.1 H 1.8-7.8 10^3/uL Lymphocytes # (Auto) 0.2 L 1.0-4.0 10^3/uL Monocytes # (Auto) 0.8 0.0-1.0 10^3/uL Eosinophils # (Auto) 0.0 0.0-0.3 10^3/uL Basophils # (Auto) 0.1 0.0-0.1 10^3/uL Immature Granulocyte # (Auto) 0.2 H 0.0-0.1 10^3/uL Neutrophils % (Manual) 83 % Lymphocytes % (Manual) 2 % Monocytes % (Manual) 3 % Eosinophils % (Manual) 0 % Basophils % (Manual) 0 % Band Neutrophils 12 % Anisocytosis SLIGHT Prothrombin Time 14.3 12.2-14.7 SEC INR Comment 1.1 0.8-1.4 Activated Partial Thromboplast Time 24 24-35 SEC Lactic Acid Level 3.03 *H 0.50-2.00 MMOL/L Sodium Level 131 L 135-145 MMOL/L Potassium Level 4.7 3.6-5.0 MMOL/L Chloride Level 94 L 98-107 MMOL/L Carbon Dioxide Level 24 21-32 MMOL/L Anion Gap 13 5-14 MMOL/L Blood Urea Nitrogen 67 H 7-18 MG/DL Creatinine 3.13 H 0.60-1.30 MG/DL Estimat Glomerular Filtration Rate 14 BUN/Creatinine Ratio 21 Glucose Level 573 *H 70-105 MG/DL Calcium Level 8.3 L 8.5-10.1 MG/DL Corrected Calcium 9.1 8.5-10.1 MG/DL Total Bilirubin 1.9 H 0.1-1.0 MG/DL Aspartate Amino Transf (AST/SGOT) 104 H 5-34 U/L Alanine Aminotransferase (ALT/SGPT) 59 H 0-55 U/L Alkaline Phosphatase 155 H 40-136 U/L Troponin I < 0.028 <0.028 NG/ML Total Protein 5.9 L 6.4-8.2 GM/DL Albumin 3.0 L 3.2-4.5 GM/DL Glucometer 440 *H 70-110 MG/DL Urine Color YELLOW Urine Clarity CLEAR Urine pH 5.5 5-9 Urine Specific Crowder <=1.005 1.016-1.022 Urine Protein NEGATIVE NEGATIVE Urine Glucose (UA) 3+ H NEGATIVE Urine Ketones NEGATIVE NEGATIVE Urine Nitrite NEGATIVE NEGATIVE Urine Bilirubin NEGATIVE NEGATIVE Urine Urobilinogen 1.0 < = 1.0 MG/DL Urine Leukocyte Esterase TRACE H NEGATIVE Urine RBC (Auto) NEGATIVE NEGATIVE Urine RBC NONE /HPF Urine WBC 2-5 /HPF Urine Squamous Epithelial Cells RARE /HPF Urine Crystals NONE /LPF Urine Bacteria MODERATE H /HPF Urine Casts NONE /LPF Urine Mucus NEGATIVE /LPF Urine Culture Indicated YES Test 02/10/23 11:15 Range/Units Lactic Acid Level 4.40 *H 0.50-2.00 MMOL/L My Orders Orders - ROMA DYKES MD Cbc With Automated Diff (02/10/23 08:59) Comprehensive Metabolic Panel (02/10/23 08:59) Blood Culture (02/10/23 08:59) Sputum Culture (02/10/23 08:59) Urinalysis (02/10/23 08:59) Urine Culture (02/10/23 08:59) Protime With Inr (02/10/23 08:59) Partial Thromboplastin Time (02/10/23 08:59) Chest 1 View, Ap/Pa Only (02/10/23 08:59) Ed Iv/Invasive Line Start (02/10/23 08:59) Ed Iv/Invasive Line Start (02/10/23 08:59) Troponin I Knott (02/10/23 08:59) Vital Signs Adult Sepsis Patie Q15M (02/10/23 08:59) O2 (02/10/23 08:59) Remove Rings In Anticipation O (02/10/23 08:59) Lactic Acid Analyzer (02/10/23 08:59) Ns Iv 1000 Ml (Sodium Chloride 0.9%) (02/10/23 09:00) Insulin (Regular) Human (Novolin R (Per (02/10/23 08:59) Manual Differential (02/10/23 08:56) Ekg Tracing (02/10/23 10:02) Ct Chest Wo (02/10/23 10:36) Ns Iv 1000 Ml (Sodium Chloride 0.9%) (02/10/23 10:37) Ceftriaxone Iv/Im (Rocephin Iv/Im) (02/10/23 11:51) Code/Resuscitation (02/10/23 12:06) Ed Admission (Communication) (02/10/23 12:06) Vital Signs/I&O 02/10/23 02/10/23 08:48 08:50 Temp 36.3 Pulse 80 Resp 20 B/P (MAP) 65/39 (48) Pulse Ox 98 98 O2 Delivery Nasal Cannula Nasal Cannula O2 Flow Rate 2.00 2.00 Capillary Refill : Less Than 3 Seconds Blood Pressure Mean: 48 Progress Note : Progress Note Seen and evaluated. We will initiate sepsis protocol including CBC, CMP, UA, chest x-ray, blood cultures and lactic acid. We will continue normal saline 1 L bolus initiated by EMS and add 1 more normal saline bolus due to hypotension noted. Patient has markedly elevated blood sugar so we will initiate insulin 10 units IV. Monitor patient. Differential diagnosis includes diabetic ketoacidosis, UTI, sepsis, electrolyte abnormality, dehydration 0954: White blood cell count is markedly elevated at 23,000 with left shift which may be secondary to dehydration. Chemistries are pending. Troponin is negative. Lactic acid is slightly above 3. Fluids are continuing. Blood pres sure now 90s or above systolic. Monitor patient. 1036: Chest x-ray is concerning for mass in the left upper lung on my interpretation. No obvious pneumonia. Radiology report agrees. We will go ahead and get CT of the chest without contrast as chemistries have resulted and she does have hyperglycemia and hyponatremia with normal potassium and elevated serum creatinine. UA resu lted and shows glucose without ketones and no obvious UTI findings. Monitor patient. 1114: CT chest complete and does show left upper lobe mass and I do not see obvious infiltrate. Pending radiology report. 1147: CT report noted and mass noted with concerns for metastasis in left lung. I did discuss the case with Dr. Goldman and she accepts patient for admission, inpatient status. While patient has elevated lactic acid and white count in the setting of hypotension, I do believe that this is related to profound dehydration and hyperglycemia and less related to infection. There is remote chance that this is urinary tract infection and we will go ahead and initiate Rocephin 1 g IV now to cover. Patient did get 30 mL/kg bolus of fluid with 1 L from EMS and 2 L ordered here. Blood pressure currently 100 systolic. Given her labile blood pressure and hyperglycemia, patient to be admitted to ICU. 1200: I did reaffirm patient wants to be full code. I did discuss with her about the concerns for lung mass with metastasis. Family also at bedside. All questions answered. I attest a focused exam at this time. ECG Initial ECG Impression Date: Feb 10, 2023 Initial ECG Impression Time: 10:10 Initial ECG Rate: 91 Initial ECG Rhythm: A Fib/Flutter Comment Atrial fibrillation with left axis deviation. No evidence of ST elevation UT. Interpreted by me. Diagnostic Imaging Diagonstic Imaging: Xray Plain Films/CT/US/NM/MRI: chest Comments [email or web address] [place] [place] NAME: ALEKSANDERMARIYA MED REC#: [id number] PT STATUS: REG ER : 1940 PHYSICIAN: ROMA DYKES MD ADMIT DATE: 02/10/23/ER Signed Date of Exam:02/10/23 CHEST 1 VIEW, AP/PA ONLY Indication: Weakness. Compared: 07/16/2022. Findings: There is new left suprahilar upper lobe pulmonary opacity that has developed from the previous exam, likely pneumonia but requiring radiographic followup to confirm its resolution given its morphology and density. Right lung clear. Upper limits heart size unchanged. There was no failure pattern. Impression: 1. New focal left suprahilar lung opacity. While this may be edema, it does require radiographic followup to exclude mass. Repeat exam within 1 to 2 weeks' time suggested. 2. No other change. Dictated by: Dictated on workstation # [id number] Dict: 02/10/23 0958 Trans: 02/10/23 1021 CV [id number] Interpreted by: RE GUZMAN Electronically signed by: RE GUZMAN 02/10/23 1021 Reviewed: Reviewed by Me Diagonstic Imaging: CT Plain Films/CT/US/NM/MRI: chest Comments [email or web address] [place] NAME: MARIYA ARMIJO MED REC#: [id number] PT STATUS: REG ER : 1940 PHYSICIAN: ROMA DYKES MD ADMIT DATE: 02/10/23/ER Draft Date of Exam:02/10/23 CT CHEST WO PROCEDURE: CT chest without contrast. TECHNIQUE: Multiple contiguous axial images were obtained through the chest without the use of intravenous contrast. Auto Exposure Controls were utilized during the CT exam to meet ALARA standards for radiation dose reduction. INDICATION: Abnormal left lung opacity without convincing clinical features of pneumonia. FINDINGS: The irregular density in the left upper lobe at CT appears as a solid mass measuring 3.4 x 2.9 cm, inseparable from the pathologically enlarged mediastinal node in the aorticopulmonary window measuring 2.6 x 2.1 cm. Pathological left lower paratracheal mediastinal nodes are present the largest of which 2.1 x 1.9 cm. An ipsilateral left superior pulmonary hilar node measured 2 cm in diameter. There are a few pretracheal and subcarinal mediastinal nodes which were not pathological in their appearance. The contralateral right hilum showed no gross abnormality given limitations in the absence of contrast. There is some very minimal postobstructive subsegmental atelectasis in the left upper lobe distal to the mass. No other focal lung lesion. No suspicious lytic or sclerotic bone finding. The visible upper abdomen has a right adrenal mass at the isthmus relatively low in density but not clearly fat-containing. It measures 2.2 x 1.6 cm and is indeterminate adenoma versus metastasis. This could be scrutinized at metabolic PET CT during formal staging. There are multiple gallstones present, the incompletely visible unopacified liver appeared nonfocal. No identifiable upper abdominal adenopathy. IMPRESSION: 1. Irregular left upper lobe lung mass with pathological ipsilateral mediastinal and hilar lymphadenopathy presumed lung cancer with metastatic disease. 2. Indeterminate right adrenal nodule. 3. Cholelithiasis. Dictated on workstation # [id number] Dict: 02/10/23 1112 Trans: 02/10/23 1125 [facility] [id number] Interpreted by: RE GUZMAN Electronically signed by: Reviewed: Reviewed by Me Critical Care Note Critical Care Start Time: 08:55 Stop Time: 12:07 Total Time (minutes) 30 minutes excluding separately billable procedures to manage potentially fatal medical disease. See progress note for details. Departure Impression Primary Impression: Uncontrolled diabetes mellitus with hyperglycemia Qualified Codes: E11.65 - Type 2 diabetes mellitus with hyperglycemia Additional Impressions: Dehydration Lactic acidosis UTI (urinary tract infection) Qualified Codes: N30.00 - Acute cystitis without hematuria Mass of left lung Disposition: ADMITTED INPATIENT Condition: Stable Admissions Decision to Admit Reason: Admit from ER (General) Decision to Admit/Date: Feb 10, 2023 Time/Decision to Admit Time: 11:47 Departure-Patient Inst. Referrals: ELIZABETH MALDONADO DO (PCP/Family) Primary Care Physician ROMA DYKES MD Feb 10, 2023 09:54
[2023-02-10 09:55] LABS: BILIRUBIN,TOTAL 1.9 MG/DL (0.1-1.0)
[2023-02-10 09:57] LABS: ALKALINE PHOSPHATASE 155 U/L (40-136); CREATININE SERUM 3.13 MG/DL (0.60-1.30); GFR ESTIMATED 14
[2023-02-10 09:58] LABS: BUN/CREATININE RATIO 21
[2023-02-10 10:00] LABS: ALANINE AMINOTRANSFERASE 59 U/L (0-55)
[2023-02-10 10:01] LABS: GLUCOSE 573 MG/DL (70-105)
--- NOTE | 2023-02-10 10:12 | Diagnostic Imaging Report ---
Indication: Weakness. Compared: 07/16/2022. Findings: There is new left suprahilar upper lobe pulmonary opacity that has developed from the previous exam, likely pneumonia but requiring radiographic followup to confirm its resolution given its morphology and density. Right lung clear. Upper limits heart size unchanged. There was no failure pattern. Impression: 1. New focal left suprahilar lung opacity. While this may be edema, it does require radiographic followup to exclude mass. Repeat exam within 1 to 2 weeks' time suggested. 2. No other change. Dictated by: Dictated on workstation # [id number]
[2023-02-10 10:22] LABS: BILIRUBIN,URINE NEGATIVE (NEGATIVE); CLARITY,URINE CLEAR; COLOR,URINE YELLOW; GLUCOSE, URINE (UA) 3+ (NEGATIVE); KETONES,URINE NEGATIVE (NEGATIVE); LEUKOCYTE ESTERASE ,URINE TRACE (NEGATIVE); NITRITE,URINE NEGATIVE (NEGATIVE); PH,URINE 5.5 (5-9); PROTEIN,URINE NEGATIVE (NEGATIVE)
[2023-02-10 10:30] LABS: BACTERIA,URINE MODERATE /HPF; SQUAMOUS EPITHELIAL CELL,UR RARE /HPF
[2023-02-10] MEDS ORDERED: NS IV 1000 ML 1,000 ML IV STA (10:37)
--- NOTE | 2023-02-10 11:26 | Diagnostic Imaging Report ---
PROCEDURE: CT chest without contrast. TECHNIQUE: Multiple contiguous axial images were obtained through the chest without the use of intravenous contrast. Auto Exposure Controls were utilized during the CT exam to meet ALARA standards for radiation dose reduction. INDICATION: Abnormal left lung opacity without convincing clinical features of pneumonia. FINDINGS: The irregular density in the left upper lobe at CT appears as a solid mass measuring 3.4 x 2.9 cm, inseparable from the pathologically enlarged mediastinal node in the aorticopulmonary window measuring 2.6 x 2.1 cm. Pathological left lower paratracheal mediastinal nodes are present the largest of which 2.1 x 1.9 cm. An ipsilateral left superior pulmonary hilar node measured 2 cm in diameter. There are a few pretracheal and subcarinal mediastinal nodes which were not pathological in their appearance. The contralateral right hilum showed no gross abnormality given limitations in the absence of contrast. There is some very minimal postobstructive subsegmental atelectasis in the left upper lobe distal to the mass. No other focal lung lesion. No suspicious lytic or sclerotic bone finding. The visible upper abdomen has a right adrenal mass at the isthmus relatively low in density but not clearly fat-containing. It measures 2.2 x 1.6 cm and is indeterminate adenoma versus metastasis. This could be scrutinized at metabolic PET CT during formal staging. There are multiple gallstones present, the incompletely visible unopacified liver appeared nonfocal. No identifiable upper abdominal adenopathy. IMPRESSION: 1. Irregular left upper lobe lung mass with pathological ipsilateral mediastinal and hilar lymphadenopathy presumed lung cancer with metastatic disease. 2. Indeterminate right adrenal nodule. 3. Cholelithiasis. Dictated by: Dictated on workstation # [id number]
[2023-02-10] MEDS ORDERED: cefTRIAXone IV/IM 1,000 MG in NS (IVPB) 50 ML IV STA (11:51)
[2023-02-10 13:06] VITALS: BP 84/52
[2023-02-10] MEDS ORDERED: MILK OF MAGNESIA 400 MG/5 ML 30 ML UDC PO PRN (13:15)
[2023-02-10] MEDS ORDERED: ANTACID SUSP 30 ML UDC (MYLANTA) PO PRN (13:15)
[2023-02-10] MEDS ORDERED: MELATONIN 3 MG TABLET PO PRN (13:15)
[2023-02-10] MEDS ORDERED: ONDANSETRON 4 MG/2 ML (SDV) Z0FRAN IV PRN (13:15)
[2023-02-10] MEDS ORDERED: BENZONATATE 100 MG (TESSALON) CAPSULE PO PRN (13:15)
[2023-02-10] MEDS: NS IV 1000 ML 1,000 ML IV SCH ×2 (13:38→20:09)
--- NOTE | 2023-02-10 14:58 | History & Physical-Hospitalist ---
History of Present Illness HPI/Chief Complaint Patient is an 82-year-old female with past medical history of A-fib, cqm-fjrxjxl-bedymdpnp diabetes, hyperlipidemia who presented to the emergency department due to weakness and hypotension. She reports that she went to the bathroom because she has been having urinary frequency lately. When she was leaving the bathroom she did not have her walker and felt weak and went to reach for it and then slid down to the ground using her bed. She denies actually falling, hitting her head, or loss of consciousness. She tried to get up but just could not. EMS was summoned and she was found to be quite hypotensive with a soft systolic blood pressure in the 60s and 70s. Blood sugar in the field was too high to read. In the ER she was found to have a blood sugar of 573. Urine was concerning for infection and she was found to have a leukocytosis and lactic acidosis along with acute kidney injury. She was admitted to the ICU for further management. She reports feeling okay now and better than when she did on arrival. She has no other complaints. Date Seen 02/10/23 Time Seen by a Provider: 14:30 Attending Physician Nilton Kyle DO PCP Admitting Physician: Opal Goldman MD Attending Physician: Opal Goldman MD Referring Physician Date of Admission Feb 10, 2023 at 12:54 Home Medications & Allergies Home Medications Reviewed patient Home Medication Reconciliation performed by pharmacy medication reconciliations dairy lab technician and/or nursing. Patients Allergies have been reviewed. Allergies Allergies Coded Allergies NKANo Known Allergies (Verified Allergy, Unknown, 03/26/06) Past Ovibslm-Enhnkl-Pfycze Hx Patient Social History Tobacco Use?: Yes Smoking Status: Former Smoker Substance use?: No Alcohol Use?: No Immunizations Up To Date Date of Influenza Vaccine: May 28, 2018 First/Initial COVID19 Vaccinat: 02/19 Second COVID19 Vaccination Maycol: 02/19 Tetanus Booster (TDap): Unknown PED Vaccines UTD: No Date of Pneumonia Vaccine: Jul 19, 2011 Seasonal Allergies Seasonal Allergies: No Current Status Primary Language: [place]alander Preferred Spoken Language: [place]alander Past Medical History Surgeries: Cardiac, Coronary Stent, Orthopedic COPD Currently Using CPAP: No Currently Using BIPAP: No Atrial Fibrillation, Cardiomyopathy, Chronic Edema/Swelling, Coronary Artery Disease, Heart Attack, High Cholesterol, Hypertension, Irregular Heartbeat 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 Review of Systems Constitutional: see HPI Physical Exam Physical Exam Vital Signs Vital Signs - First Documented 02/10/23 08:48 Temp 36.3 Pulse 80 Resp 20 B/P (MAP) 65/39 (48) Pulse Ox 98 O2 Delivery Nasal Cannula O2 Flow Rate 2.00 Capillary Refill : Less Than 3 Seconds Height, Weight, BMI Height: 5'1.50" Weight: 191lbs. 8.0oz. 86.270974ar; 36.00 BMI Method:Stated General Appearance: No Apparent Distress, Obese Respiratory: Lungs Clear, No Respiratory Distress Cardiovascular: No Murmur, Irregularly Irregular Gastrointestinal: Normal Bowel Sounds, Non Tender, Soft Extremity: No Calf Tenderness, No Pedal Edema Neurologic/Psychiatric: Alert, Oriented x3, Normal Mood/Affect Results Results/Procedures Labs Laboratory Tests 02/10/23 08:56 02/10/23 09:34 02/11/23 04:45 Patient resulted labs reviewed. Imaging: Reviewed Imaging Report Imaging [facility], [place] NAME: MARIYA ARMIJO [facility] REC#: [id number] PT STATUS: REG ER : 1940 PHYSICIAN: ROMA DYKES MD ADMIT DATE: 02/10/23/ER Signed Date of Exam:02/10/23 CHEST 1 VIEW, AP/PA ONLY Indication: Weakness. Compared: 07/16/2022. Findings: There is new left suprahilar upper lobe pulmonary opacity that has developed from the previous exam, likely pneumonia but requiring radiographic followup to confirm its resolution given its morphology and density. Right lung clear. Upper limits heart size unchanged. There was no failure pattern. Impression: 1. New focal left suprahilar lung opacity. While this may be edema, it does require radiographic followup to exclude mass. Repeat exam within 1 to 2 weeks' time suggested. 2. No other change. Dictated by: Dictated on workstation # [id number] Dict: 02/10/23 0958 Trans: 02/10/23 1021 [facility] [id number] Interpreted by: RE GUZMAN Electronically signed by: RE GUZMAN 02/10/23 1021 [facility], [place] NAME: MARIYA ARMIJO [facility] REC#: [id number] PT STATUS: REG ER : 1940 PHYSICIAN: ROMA DYKES MD ADMIT DATE: 02/10/23/ER Signed Date of Exam:02/10/23 CT CHEST WO PROCEDURE: CT chest without contrast. TECHNIQUE: Multiple contiguous axial images were obtained through the chest without the use of intravenous contrast. Auto Exposure Controls were utilized during the CT exam to meet ALARA standards for radiation dose reduction. INDICATION: Abnormal left lung opacity without convincing clinical features of pneumonia. FINDINGS: The irregular density in the left upper lobe at CT appears as a solid mass measuring 3.4 x 2.9 cm, inseparable from the pathologically enlarged mediastinal node in the aorticopulmonary window measuring 2.6 x 2.1 cm. Pathological left lower paratracheal mediastinal nodes are present the largest of which 2.1 x 1.9 cm. An ipsilateral left superior pulmonary hilar node measured 2 cm in diameter. There are a few pretracheal and subcarinal mediastinal nodes which were not pathological in their appearance. The contralateral right hilum showed no gross abnormality given limitations in the absence of contrast. There is some very minimal postobstructive subsegmental atelectasis in the left upper lobe distal to the mass. No other focal lung lesion. No suspicious lytic or sclerotic bone finding. The visible upper abdomen has a right adrenal mass at the isthmus relatively low in density but not clearly fat-containing. It measures 2.2 x 1.6 cm and is indeterminate adenoma versus metastasis. This could be scrutinized at metabolic PET CT during formal staging. There are multiple gallstones present, the incompletely visible unopacified liver appeared nonfocal. No identifiable upper abdominal adenopathy. IMPRESSION: 1. Irregular left upper lobe lung mass with pathological ipsilateral mediastinal and hilar lymphadenopathy presumed lung cancer with metastatic disease. 2. Indeterminate right adrenal nodule. 3. Cholelithiasis. Dictated by: Dictated on workstation # [id number] Dict: 02/10/23 1112 Trans: 02/10/23 1151 [facility] [id number] Interpreted by: ER GUZMAN Electronically signed by: RE GUZMAN 02/10/23 1151 Assessment/Plan Admission Diagnosis Severe Sepsis Admission Status: Inpatient Order (span 2 midnights) Reason for Inpatient Admission: see below Assessment and Plan Severe Sepsis UTI ROSAS Pictures complicated by dehydration from hyperglycemia and lasix Not septic shock Continue IV abx received 3 liters of fluids in the ER Await cultures Uncontrolled NIDDMII BS 573 on arrival Improved with 10 units of insulin SSI A1c ordered New lung mass No known history Discussed need for outpatient follow up of this after infection cleared A fib compensated dCHF Follows with Dr Blandon Continue home meds as appropriate DVT ppx: OPAL Machado MD Feb 10, 2023 14:58
[2023-02-10] MEDS ORDERED: LOVA10TA PO (15:38)
[2023-02-10] MEDS ORDERED: CARV25TA PO (15:38)
--- NOTE | 2023-02-10 15:54 | Tele-ICU Consult ---
History of Present Illness History of Present Illness Date Seen by Provider: Feb 10, 2023 Time Seen by Provider: 15:50 History of Present Illness (Tele-ICU Physician , consultation as per request of PCP Service provided via interactive audio and video telecommunications E-CARE system to a patient admitted to ICU bed in [facility], [place]. Available chart/ vitals / labs / Images reviewed H&P is from ER notes Patient's information available about PMH, Shx, Fhx allergy reviewed inEMR. ROS as per chart and RN report Now in ICU, hemodynamically stable Video assessment done using teleICU camera, rest of exam as per RN Discussed with RN. 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 - JEY lung mass 3x3 cm with mediast LN , and suspected Roight adrenal mass - presumed lung cancer with metastatic disease. - nost likley not amendable for IR bx - will need PET and bronch if tissue desired Lines : periph , (Central Line Necessity Reviewed) Camacho: void OG: Nutrition: Analgesia: Anxiety/ delirium VTE Prophylaxis: received eliquis CRM DEVELOPER ? Stress Ulcer Prophylaxis: na Plans in collaboration with bedside consultants and IM MDs. Discussed with RN to reach out if any questions or concerns A total of 20 minutes of critical care time was devoted to this patient today, required to treat and/or prevent further deterioration of critical care condition ( as above ) . I am remotely monitoring this patient from another state. I am unable to do the bedside exam, and history/physical and pertinent information is taken from other notes in the computer and bedside staff. . Allergies and Home Medications Allergies Coded Allergies: NKANo Known Allergies (Verified Allergy, Unknown, 03/26/06) Home Medications Aspirin 81 Mg Tablet.dr, 81 MG PO DAILY, (Reported) Carvedilol 25 Mg Tablet, 25 MG PO BID, (Reported) Cholecalciferol (Vitamin D3) 25 Mcg (1000 Unit) Capsule, 25 MCG PO DAILY, (Reported) Dapagliflozin Propanediol 5 Mg Tablet, 5 MG PO DAILY, (Reported) Furosemide 80 Mg Tablet, 80 MG PO DAILY, (Reported) Gabapentin 300 Mg Capsule, 600 MG PO HS, (Reported) TAKES 2 (300MG) CAPS Lovastatin 10 Mg Tablet, 10 MG PO HS, (Reported) [place]-3 Acid Ethyl Esters 1 Gram Capsule, 1 GM PO DAILY, (Reported) Pantoprazole Sodium 40 Mg Tablet.dr, 40 MG PO DAILY, (Reported) Potassium Chloride 10 Meq Tablet.er, 10 MEQ PO DAILY, (Reported) Tramadol HCl 50 Mg Tablet, 50 MG PO QID PRN for PAIN-MODERATE (5-7), (Reported) Past Medical/Social/Family Hx Patient Social History Tobacco Use?: No Smoking Status: Former Smoker Use of E-Cig and/or Vaping dev: No Substance use?: No Substance type: Caffeine Substance frequency: Daily Alcohol Use?: No Pt stated abuse/neglect: No Immunizations Up To Date Influenza Vaccine Up-to-Date: Yes; Up-to-Date First/Initial COVID19 Vaccinat: 02/19 Second COVID19 Vaccination Maycol: 02/19 Tetanus Booster (TDap): Unknown TB Skin Test: None Date of Pneumonia Vaccine: Jul 19, 2011 Current Status Communicates: Verbally Primary Language: Serbian Preferred Spoken Language: Serbian Is interpretation needed?: No Implanted or Applied Medical D: Stents Family Medical History Family Hx: 01/2019--EGD 04/2020--STRESS TEST. Review of Systems Constitutional: see HPI Focused Exam Lactate Level 02/10/23 08:56: Lactic Acid Level 3.03*H 02/10/23 11:15: Lactic Acid Level 4.40*H 02/10/23 13:10: Lactic Acid Level 2.12*H Height, Weight, BMI Height: 5'1.50" Weight: 191lbs. 8.0oz. 86.918264rj; 37.16 BMI Method:Stated Lactic Acid Level Laboratory Tests Test 02/10/23 13:10 Lactic Acid Level 2.12 MMOL/L (0.50-2.00) *H Exam Exam Patient acknowledged, consented, and participated in this virtual visit which was conducted using real time audio/video Vital Signs Date Time Temp Pulse Resp B/P (MAP) Pulse Ox O2 Delivery O2 Flow Rate FiO2 02/10/23 15:00 77 17 110/55 (73) 100 Nasal Cannula 2.00 02/10/23 14:00 83 22 101/59 (73) 100 Nasal Cannula 2.00 02/10/23 13:08 85 02/10/23 13:06 80 18 84/52 (63) 92 Nasal Cannula 2.00 02/10/23 13:06 80 18 84/52 (63) 92 Nasal Cannula 2.00 02/10/23 12:45 36.3 80 20 89/59 98 Nasal Cannula 2.00 2.00 02/10/23 08:50 98 Nasal Cannula 2.00 02/10/23 08:48 36.3 80 20 65/39 (48) 98 Nasal Cannula 2.00 Height & Weight Height: 5'1.50" Weight: 191lbs. 8.0oz. 86.786157jt; 37.16 BMI Method:Stated General Appearance: No Apparent Distress, Obese HEENT: PERRL/EOMI, Pharynx Normal Neck: Non Tender, Supple Respiratory: Lungs Clear, No Respiratory Distress Cardiovascular: No Murmur, Irregularly Irregular Capillary Refill: Less Than 3 Seconds Extremity: No Calf Tenderness, No Pedal Edema Neurologic/Psychiatric: Alert, Oriented x3, Normal Mood/Affect Results Lab Laboratory Tests 02/10/23 08:56 02/10/23 09:34 Assessment/Plan Assessment/Plan 1 ELIU MCALLISTER MD Feb 10, 2023 15:53
[2023-02-10] MEDS: inSUlin ASPART (NovoLOG) 1 UNIT/0.01 ML (CHARGE PER UNIT) SC SCH ×2 (17:00→20:15)
[2023-02-11] MEDS: NS IV 1000 ML 1,000 ML IV SCH (03:11)
[2023-02-11 04:56] LABS: BASOPHILS % (AUTO) 0 % (0-10); EOSINOPHILS % (AUTO) 0 % (0-10); HEMATOCRIT 34 % (35-52); LYMPHOCYTES # (AUTO) 0.3 10^3/uL (1.0-4.0); LYMPHOCYTES % (AUTO) 2 % (12-44); MEAN CORPUSCULAR HEMOGLOBIN 29 pg (25-34); MEAN CORPUSCULAR HGB CONC 32 g/dL (32-36); MEAN CORPUSCULAR VOLUME 91 fL (80-99); MEAN PLATELET VOLUME 12.9 fL (9.0-12.2); MONOCYTES # (AUTO) 0.5 10^3/uL (0.0-1.0); MONOCYTES % (AUTO) 4 % (0-12); NEUTROPHILS # (AUTO) 11.4 10^3/uL (1.8-7.8); NEUTROPHILS % (AUTO) 93 % (42-75); PLATELET COUNT 185 10^3/uL (130-400); WHITE BLOOD COUNT 12.3 10^3/uL (4.3-11.0)
[2023-02-11 05:24] LABS: ALBUMIN 3.1 GM/DL (3.2-4.5); CALCIUM 8.1 MG/DL (8.5-10.1); CREATININE SERUM 2.46 MG/DL (0.60-1.30)
[2023-02-11] MEDS: POTASSIUM CL 10MEQ/50ML IVPB 50 ML IV SCH (05:32)
[2023-02-11] MEDS: MAGNESIUM 1 GM/100 ML IVPB 100 ML IV SCH (05:32)
[2023-02-11] MEDS: KCL 20 MEQ TAB (K-DUR) PO SCH (05:33)
[2023-02-11] MEDS: inSUlin ASPART (NovoLOG) 1 UNIT/0.01 ML (CHARGE PER UNIT) SC SCH ×4 (05:37→20:48)
[2023-02-11 05:43] LABS: MAGNESIUM 2.4 MG/DL (1.6-2.4); PHOSPHORUS 3.9 MG/DL (2.3-4.7)
[2023-02-11] MEDS ORDERED: NS IV 500 ML 500 ML IV PRN (05:45)
--- NOTE | 2023-02-11 08:06 | Tele-ICU Progress Note ---
Subjective Date Seen by a Provider: Feb 11, 2023 Time Seen by a Provider: 08:01 Subjective/Events-last exam Tele-ICU Physician , Progress Note ) Service provided via interactive audio and video telecommunWondershake E-CARE system to a patient admitted to ICU bed in [facility]. Patient is seen today due to persistent need of ICU care Available chart/ vitals / labs / Images reviewed Video assessment done using teleICU camera, rest of exam as per RN Discussed with RN Events overnight : 82 yo F with ROSAS, Hx of hypotension with responded to IVF, also has ROSAS-Cr has dropped from 3.13 to 2.46 Hyperglycemia glu as high as 575 yesterday, now 268, on sliding scale insulin A fib was on Eliquis? , V rate in 80's JEY lung mass 3 cm, appears to be lung Ca, has not been biopsied, may be done as OP Sepsis Event Evaluation Height, Weight, BMI Height: 5'1.50" Weight: 191lbs. 8.0oz. 86.540220vi; 38.05 BMI Method:Stated Focused Exam Lactate Level 02/10/23 08:56: Lactic Acid Level 3.03*H 02/10/23 11:15: Lactic Acid Level 4.40*H 02/10/23 13:10: Lactic Acid Level 2.12*H Exam Exam Patient acknowledged, consented, and participated in this virtual visit which was conducted using real time audio/video Vital Signs Date Time Temp Pulse Resp B/P (MAP) Pulse Ox O2 Delivery O2 Flow Rate FiO2 02/11/23 07:00 82 02/11/23 06:00 75 14 132/87 (102) 98 Nasal Cannula 2.00 02/11/23 05:00 78 127/93 (104) 98 Nasal Cannula 2.00 02/11/23 04:00 83 18 116/69 (85) 97 Nasal Cannula 2.00 02/11/23 03:27 36.8 02/11/23 03:05 99 Nasal Cannula 2.00 02/11/23 03:00 74 16 103/64 (77) 98 Nasal Cannula 2.00 02/11/23 02:00 80 15 104/55 (71) 98 Nasal Cannula 2.00 02/11/23 01:00 79 14 119/62 (72) 98 Nasal Cannula 2.00 02/11/23 01:00 79 02/11/23 00:00 79 15 113/69 (84) 98 Nasal Cannula 2.00 02/10/23 23:59 98 Nasal Cannula 2.00 02/10/23 23:58 77 14 98 Nasal Cannula 2.00 02/10/23 23:28 36.7 02/10/23 23:00 71 14 116/70 (85) 98 Nasal Cannula 2.00 02/10/23 22:00 97 25 105/64 (78) 97 Nasal Cannula 2.00 02/10/23 21:00 73 13 98/52 (72) 99 Nasal Cannula 2.00 02/10/23 20:00 36.4 02/10/23 20:00 67 12 114/72 (90) 100 Nasal Cannula 2.00 02/10/23 19:30 100 Nasal Cannula 2.00 02/10/23 19:00 74 14 110/85 (93) 100 Nasal Cannula 2.00 02/10/23 19:00 75 02/10/23 18:00 70 24 111/56 (74) 99 Nasal Cannula 2.00 02/10/23 17:41 97 Nasal Cannula 2.00 02/10/23 17:00 74 20 110/58 (75) 100 Nasal Cannula 2.00 02/10/23 16:01 36.1 Nasal Cannula 2.00 02/10/23 16:00 97 Nasal Cannula 2.00 02/10/23 16:00 69 23 109/66 (80) 100 Nasal Cannula 2.00 02/10/23 15:00 77 17 110/55 (73) 100 Nasal Cannula 2.00 02/10/23 14:00 83 22 101/59 (73) 100 Nasal Cannula 2.00 02/10/23 13:08 85 02/10/23 13:06 80 18 84/52 (63) 92 Nasal Cannula 2.00 02/10/23 13:06 80 18 84/52 (63) 92 Nasal Cannula 2.00 02/10/23 13:00 98 Nasal Cannula 2.00 02/10/23 12:45 36.3 80 20 89/59 98 Nasal Cannula 2.00 2.00 02/10/23 08:50 98 Nasal Cannula 2.00 02/10/23 08:48 36.3 80 20 65/39 (48) 98 Nasal Cannula 2.00 I & O 02/11/23 07:00 Intake Total 4775 ml Output Total 1125 ml Balance 3650 ml Height & Weight Height: 5'1.50" Weight: 191lbs. 8.0oz. 86.765636mq; 38.05 BMI Method:Stated General Appearance: No Apparent Distress, Obese HEENT: PERRL/EOMI, Pharynx Normal Neck: Non Tender, Supple Respiratory: Lungs Clear, No Respiratory Distress Cardiovascular: No Murmur, Irregularly Irregular Capillary Refill: Less Than 3 Seconds Gastrointestinal: normal bowel sounds, non tender Extremity: No Calf Tenderness, No Pedal Edema Neurologic/Psychiatric: Alert, Oriented x3, Normal Mood/Affect Results Lab Laboratory Tests 02/10/23 08:56 02/10/23 09:34 02/11/23 04:45 Assessment/Plan Assessment/Plan full code hypertension-resolved a fib-controlled Lung mas JEY, await decision on lung Bx DM under better control with sliding scale WIll probably go to general medical floor today Critical Care: Critically Ill Patient Time spent with patient (mins): 20 LETTY HOLLINS MD Feb 11, 2023 08:06
--- NOTE | 2023-02-11 11:01 | Progress Note - Hospitalist ---
Subjective HPI/CC On Admission Date Seen by Provider: Feb 11, 2023 Patient is an 82-year-old female with past medical history of A-fib, hax-twtbnvf-jaxkffgrk diabetes, hyperlipidemia who presented to the emergency department due to weakness and hypotension. She reports that she went to the bathroom because she has been having urinary frequency lately. When she was leaving the bathroom she did not have her walker and felt weak and went to reach for it and then slid down to the ground using her bed. She denies actually falling, hitting her head, or loss of consciousness. She tried to get up but just could not. EMS was summoned and she was found to be quite hypotensive with a soft systolic blood pressure in the 60s and 70s. Blood sugar in the field was too high to read. In the ER she was found to have a blood sugar of 573. Urine was concerning for infection and she was found to have a leukocytosis and lactic acidosis along with acute kidney injury. She was admitted to the ICU for further management. She reports feeling okay now and better than when she did on arrival. She has no other complaints. Subjective/Events-last exam Pt reports doing well. No complaints. Feeling better today. Focused Exam Lactate Level 02/10/23 08:56: Lactic Acid Level 3.03*H 02/10/23 11:15: Lactic Acid Level 4.40*H 02/10/23 13:10: Lactic Acid Level 2.12*H Objective Exam Vital Signs Vital Signs Date Time Temp Pulse Resp B/P (MAP) Pulse Ox O2 Delivery O2 Flow Rate FiO2 02/11/23 10:00 82 20 119/72 (88) 93 Nasal Cannula 1.00 02/11/23 08:06 36.1 Capillary Refill : Less Than 3 Seconds General Appearance: No Apparent Distress, Obese Respiratory: Lungs Clear Cardiovascular: No Murmur, Irregularly Irregular Gastrointestinal: Normal Bowel Sounds, Soft Neurologic/Psychiatric: Alert, Oriented x3 Results/Procedures Lab Laboratory Tests 02/11/23 04:45 Patient resulted labs reviewed. Imaging: Reviewed Imaging Report Assessment/Plan Assessment and Plan Assess & Plan/Chief Complaint Severe Sepsis UTI ROSAS on CKD Stage 3 Not septic shock Continue IV abx Urine culture with GNR and blood culture with it as well- await ID and sensitivities Creatinine improving (down to 2.46) Uncontrolled NIDDMII BS improved but still in the 300s SSI A1c 13.4 Start Levemir New lung mass No known history Discussed need for outpatient follow up of this after infection cleared Referral placed for Dr Moore as mass does not appear amenable to IR biopsy per eiCU Informed patient of need for this follow up Attempted to call Dr Kyle, no answer- will call back A fib compensated dCHF Follows with Dr Blandon Continue home meds as appropriate Does not appear to be on anticoagulation (likely due to history of GI bleeds) DVT ppx: SCDs Critical Care Critically Ill Patient OPAL NOVAK MD Feb 11, 2023 11:01
[2023-02-11] MEDS: PANTOPRAZOLE 40 MG (PROTONIX) TAB PO SCH (11:40)
[2023-02-11] MEDS: ASPIRIN E.C. 81 MG (ECOTRIN) TAB PO SCH (11:40)
[2023-02-11] MEDS: VITAMIN D3 25 MCG (1,000 UNITS) TABLET PO SCH (11:40)
[2023-02-11] MEDS: cefTRIAXone IV/IM 1,000 MG in NS (IVPB) 50 ML IV SCH (14:45)
--- NOTE | 2023-02-11 15:16 | Physical Therapy Evaluation ---
PT Evaluation-General Medical Diagnosis Admission Date Feb 10, 2023 at 12:54 Medical Diagnosis: Weakness, hypotension, high blood sugar Onset Date: Feb 10, 2023 Therapy Diagnosis Therapy Diagnosis: Gait deficit, strength deficit Height/Weight Height (Feet): 5 Height (Inches): 1.50 Weight (Pounds): 191 Weight (Ounces): 8.0 Precautions Precautions/Isolations: Fall Prevention, Standard Precautions Weight Bear Status Right Lower Extremity: Right Full Weight Bearing Left Lower Extremity: Left Full Weight Bearing Referral Physician: Dr. Goldman Reason for Referral: Evaluation/Treatment Medical History Pertinent Medical History: Atrial Fib, Arthritis, CVA, DM, Heart Failure, HTN, [place], Neuropathy Reviewed History: Yes Social History Home: Apartment Current Living Status: Alone Entry Into Home: Level Entry PT Steps Into Home: 0 Prior Prior Level of Function SCALE: Activities may be completed with or without assistive devices. 5-Tmnxoxrucz-rvhgjui completes the activity by him/herself with no assistance from a helper. 5-Set-up or Clean-up Assistance-helper sets up or cleans up; patient completes activity. [place] assists only prior to or following the activity. 4-Supervision or Touching Assistance-helper provides verbal cues and/or touching/steadying and/or contact guard assistance as patient completes activity. Assistance may be provided throughout the activity or intermittently. 3-Partial/Moderate Assistance-helper does LESS THAN HALF the effort. [place] lifts, holds or supports trunk or limbs, but provides less than half the effort. 2-Substantial/Maximal Assistance-helper does MORE THAN HALF the effort. [place] lifts or holds trunk or limbs and provides more than half the effort. 7-Tzqykjezw-ohutje does ALL the effort. Patient does none of the effort to complete the activity. Or, the assistance of 2 or more helpers is required for the patient to complete the activity. If activity was not attempted, code reason: 7-Patient Refused. 9-Not Applicable-not attempted and the patient did not perform the activity before the current illness, exacerbation or injury. 10-Not Attempted due to Environmental Limitations-(lack of equipment, weather restraints, etc.). 88-Not Attempted due to Medical Conditions or Safety Concerns. Bed Mobility: 6 Transfers (B,C,W/C): 6 Gait: 6 Indoor Mobility (Ambulation): Independent Stairs: Not Applicalbe Prior Devices Use: Walker PT Evaluation-Current Subjective Patient lying supine in bed upon PT arrival, agreeable to treatment. Patient rates pain at 0/10 currently. Objective Patient Orientation: Person, Place, Time, Situation ROM/Strength ROM Lower Extremities WFLs BLEs all planes Strength Lower Extremities 4-/5 BLEs all planes Sensory Vision: Functional Hearing: Functional Sensation Right Lower Extremit: Intact Sensation Left Lower Extremity: Intact Transfers Roll Left to Right (QC): 4 Sit to Lying (QC): 4 Lying to Sitting/Side of Bed(Q: 4 Sit to Stand (QC): 4 Chair/Ljw-nu-Vdmen Xfer(QC): 4 Gait Does the Patient Walk?: Yes Mode of Locomotion: Walk Anticipated Mode of Locomotion: Walk Walk 10 feet (QC): 4 Walk 50 ft with 2 Turns(QC): 4 Distance: 80 Gait Assistive Device: FWW Balance Sitting Static: Good Sitting Dynamic: Fair Standing Static: Fair Standing Dynamic: Fair Assessment/Needs Patient tolerated treatment well given she has just been transferred from ICU and reports she has not been out of bed for a few days. Patient performs all bed mobility and transfers with SBA/CGA. patient ambulates 80 feet with FWW, with CGA and verbal cues for safety, progression, posture and conservation of energy. Patient in bed post treatment with all needs met, nursing notified, call light in hand. Rehab Potential: Fair PT Cell Operator Goals Mcfp Goals PT Cell Operator Goals Time Frame: Feb 28, 2023 Roll Left & Right (QC): 6 Sit to Lying (QC): 6 Lying-Sitting on Side/Bed(QC): 6 Sit to Stand (QC): 6 Chair/Ril-dc-Qsvtz Xfer(QC): 6 Toilet Transfer (QC): 6 Does the Patient Walk: Yes Walk 10 feet (QC): 6 Walk 50ft with 2 Turns (QC): 6 Walk 150 ft (QC): 6 PT Plan Problem List Problem List: Activity Tolerance, Functional Strength, Safety, Balance, Gait, Transfer, Bed Mobility, ROM Treatment/Plan Treatment Plan: Continue Plan of Care Treatment Plan: Bed Mobility, Education, Functional Activity Edward, Functional Strength, Group Therapy, Gait, Safety, Therapeutic Exercise, Transfers Treatment Duration: Feb 28, 2023 Frequency: 6 times per week Estimated Hrs Per Day: .25 hour per day Patient and/or Family Agrees t: Yes Safety Risks/Education Patient Education: Gait Training, Transfer Techniques Teaching Recipient: Patient Teaching Methods: Demonstration, Discussion Response to Teaching: Verbalize Understanding, Return Demonstration Time Time In: 1451 Time Out: 1506 DATE: Feb 11, 2023 Total Billed Treatment Time: 15 Total Billed Treatment Visit, MIRTHA PERALES PT Feb 11, 2023 15:16
[2023-02-11 15:30] VITALS: BP 137/69
[2023-02-11 19:06] VITALS: BP 140/74
[2023-02-11] MEDS: AtorvaSTATin TABLET 10 MG TABLET PO SCH (20:48)
[2023-02-11] MEDS: GABAPENTIN 300 MG (NEURONTIN) CAP PO SCH (20:48)
[2023-02-11] MEDS ORDERED: NON-FORMULARY MEDICATION 1 EA EA (Lovastatin 10 MG) PO SCH (21:00)
[2023-02-11 23:41] VITALS: BP 123/82
[2023-02-12 03:44] VITALS: BP 117/72
[2023-02-12 05:44] LABS: BASOPHILS % (AUTO) 0 % (0-10); LYMPHOCYTES # (AUTO) 0.6 10^3/uL (1.0-4.0); NEUTROPHILS # (AUTO) 6.1 10^3/uL (1.8-7.8)
[2023-02-12 05:47] LABS: EOSINOPHILS # (AUTO) 0.1 10^3/uL (0.0-0.3); EOSINOPHILS % (AUTO) 1 % (0-10); HEMATOCRIT 35 % (35-52); LYMPHOCYTES % (AUTO) 8 % (12-44); MEAN CORPUSCULAR HEMOGLOBIN 29 pg (25-34); MEAN CORPUSCULAR HGB CONC 32 g/dL (32-36); MEAN CORPUSCULAR VOLUME 92 fL (80-99); MONOCYTES # (AUTO) 0.7 10^3/uL (0.0-1.0); MONOCYTES % (AUTO) 9 % (0-12); NEUTROPHILS % (AUTO) 80 % (42-75); PLATELET COUNT 183 10^3/uL (130-400); WHITE BLOOD COUNT 7.6 10^3/uL (4.3-11.0)
[2023-02-12 06:00] LABS: ALBUMIN 3.2 GM/DL (3.2-4.5); BILIRUBIN,TOTAL 0.7 MG/DL (0.1-1.0); CALCIUM 8.5 MG/DL (8.5-10.1); CREATININE SERUM 2.19 MG/DL (0.60-1.30); MAGNESIUM 2.6 MG/DL (1.6-2.4); PHOSPHORUS 3.4 MG/DL (2.3-4.7); POTASSIUM 4.4 MMOL/L (3.6-5.0); TOTAL PROTEIN 6.1 GM/DL (6.4-8.2)
[2023-02-12] MEDS: POTASSIUM CL 10MEQ/50ML IVPB 50 ML IV SCH (06:11)
[2023-02-12] MEDS: MAGNESIUM 1 GM/100 ML IVPB 100 ML IV SCH (06:12)
[2023-02-12] MEDS: KCL 20 MEQ TAB (K-DUR) PO SCH (06:12)
[2023-02-12] MEDS: inSUlin ASPART (NovoLOG) 1 UNIT/0.01 ML (CHARGE PER UNIT) SC SCH ×4 (06:15→20:17)
[2023-02-12 07:18] VITALS: BP 138/84
[2023-02-12] MEDS: ASPIRIN E.C. 81 MG (ECOTRIN) TAB PO SCH (08:51)
[2023-02-12] MEDS: OMEGA 3 (FISH OIL) 1000 MG CAP PO SCH (08:51)
[2023-02-12] MEDS: PANTOPRAZOLE 40 MG (PROTONIX) TAB PO SCH (08:51)
[2023-02-12] MEDS: VITAMIN D3 25 MCG (1,000 UNITS) TABLET PO SCH (08:51)
--- NOTE | 2023-02-12 10:49 | Progress Note - Hospitalist ---
Subjective HPI/CC On Admission Date Seen by Provider: Feb 12, 2023 Patient is an 82-year-old female with past medical history of A-fib, ulx-bmrdxdi-asfiugasy diabetes, hyperlipidemia who presented to the emergency department due to weakness and hypotension. She reports that she went to the bathroom because she has been having urinary frequency lately. When she was leaving the bathroom she did not have her walker and felt weak and went to reach for it and then slid down to the ground using her bed. She denies actually falling, hitting her head, or loss of consciousness. She tried to get up but just could not. EMS was summoned and she was found to be quite hypotensive with a soft systolic blood pressure in the 60s and 70s. Blood sugar in the field was too high to read. In the ER she was found to have a blood sugar of 573. Urine was concerning for infection and she was found to have a leukocytosis and lactic acidosis along with acute kidney injury. She was admitted to the ICU for further management. She reports feeling okay now and better than when she did on arrival. She has no other complaints. Subjective/Events-last exam Pt reports her neck hurts. She turned her had this morning and thinks she heard it pop and now it is very stiff and hurts. Otherwise no complaints. Focused Exam Lactate Level 02/10/23 08:56: Lactic Acid Level 3.03*H 02/10/23 11:15: Lactic Acid Level 4.40*H 02/10/23 13:10: Lactic Acid Level 2.12*H Objective Exam Vital Signs Vital Signs Date Time Temp Pulse Resp B/P (MAP) Pulse Ox O2 Delivery O2 Flow Rate FiO2 02/12/23 08:00 96 Nasal Cannula 2.00 02/12/23 07:18 35.8 75 18 138/84 (102) Capillary Refill : Less Than 3 Seconds General Appearance: No Apparent Distress, WD/WN Cardiovascular: Regular Rate, Rhythm, No Murmur Gastrointestinal: Normal Bowel Sounds, Soft Neurologic/Psychiatric: Alert, Oriented x3 Results/Procedures Lab Laboratory Tests 02/12/23 05:10 Patient resulted labs reviewed. 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
[2023-02-12 11:06] VITALS: BP 124/78
[2023-02-12] MEDS: cefTRIAXone IV/IM 1,000 MG in NS (IVPB) 50 ML IV SCH (11:28)
[2023-02-12] MEDS: CYCLOBENZAPRINE 10 MG (FLEXERIL) TAB PO PRN (11:29)
--- NOTE | 2023-02-12 14:30 | Occupational Therapy Eval ---
OT Evaluation-General/PLF Medical Diagnosis Admission Date Feb 10, 2023 at 12:54 Medical Diagnosis: Weakness, hypotension, high blood sugar Onset Date: Feb 10, 2023 Therapy Diagnosis Therapy Diagnosis: weakness Height/Weight Height (Feet): 5 Height (Inches): 1.50 Weight (Pounds): 191 Weight (Ounces): 8.0 Precautions Precautions/Isolations: Standard Precautions Weight Bear Status Weight Bearing Restriction: Full Weight Bearing Referral Physician: Dr. Goldman Referral Reason: Evaluation/Treatment Medical History Pertinent Medical History: Atrial Fib, Arthritis, CVA, DM, Heart Failure, HTN, [place], Neuropathy Additional Medical History 82-year-old female with past medical history of A-fib, rwp-myrjfum-rjazijhvr diabetes, hyperlipidemia who presented to the emergency department due to weakness and hypotension. She reports that she went to the bathroom because she has been having urinary frequency lately. When she was leaving the bathroom she did not have her walker and felt weak and went to reach for it and then slid down to the ground using her bed. She denies actually falling, hitting her head, or loss of consciousness. She tried to get up but just could not. EMS was summoned and she was found to be quite hypotensive with a soft systolic blood pressure in the 60s and 70s. Blood sugar in the field was too high to read. In the ER she was found to have a blood sugar of 573. Urine was concerning for infection and she was found to have a leukocytosis and lactic acidosis along with acute kidney injury. She was admitted to the ICU and then transferred to fourth floor for further management Current History Patient reports she is here because she couldn't get up after she "Lowered" herself to the floor. She called 911 to put her back on the sofa, and then she got confused and ended up here. Reviewed History: Yes Social History Home: Apartment Current Living Status: Alone Entry Into Home: Level Entry Steps Into Home: 0 ADL-Prior Level of Function SCALE: Activities may be completed with or without assistive devices. 9-Chnxqpdhzh-xrasqhu completes the activity by him/herself with no assistance from a helper. 5-Set-up or Clean-up Assistance-helper sets up or cleans up; patient completes activity. [place] assists only prior to or following the activity. 4-Supervision or Touching Assistance-helper provides verbal cues and/or touching/steadying and/or contact guard assistance as patient completes activity. Assistance may be provided throughout the activity or intermittently. 3-Partial/Moderate Assistance-helper does LESS THAN HALF the effort. [place] lifts, holds or supports trunk or limbs, but provides less than half the effort. 2-Substantial/Maximal Assistance-helper does MORE THAN HALF the effort. [place] lifts or holds trunk or limbs and provides more than half the effort. 9-Kprsgccby-upiavu does ALL the effort. Patient does none of the effort to complete the activity. Or, the assistance of 2 or more helpers is required for the patient to complete the activity. If activity was not attempted, code reason: 7-Patient Refused. 9-Not Applicable-not attempted and the patient did not perform the activity before the current illness, exacerbation or injury. 10-Not Attempted due to Environmental Limitations-(lack of equipment, weather restraints, etc.). 88-Not Attempted due to Medical Conditions or Safety Concerns. Self Care: Independent (per patient) Functional Cognition: Independent (per patient) Drive Self: No OT Current Status Subjective Sitting upright recliner, reports her neck hurt earlier today and she doesn't want to do PT. agreeable to OT however no walking the halls Pain Numeric Pain Scale: 4 Location Body Site: Neck Comment: ROM WFLs lateral and rotation Mental Status/Objective Patient Orientation: Person, Place Attachments: Oxygen (1.5 liters NC) Current Upper Extremity ROM BUE ROM WFLS Upper Extremity Coordination WFLS Upper Extremity Sensation WFLs Upper Extremity Strength +3/5 distally -4/5 proximally ADL-Treatment Eating (QC): 6 Oral Hygiene (QC): 5 Shower/Bathe Self (QC): 7 Upper Body Dressing (QC): 4 (robe over hospital gown) Lower Body Dressing (QC): 3 (difficulty threading feet through leg garments) On/Off Footwear (QC): 3 Toileting Hygiene (QC): 4 Declines ambulation in halls, agreeable to march in place ambulation room and functional reaching to simulate activity level at home per patient report Education OT Patient Education: Correct positioning, Exercise program, Modified ADL techniques, Progress toward Goal/Update tx plan, Purpose of tx/functional activities, Reviewed precautions, Rehab process, Safety issues, Transfer techniques, Use of adapted equipment Teaching Recipient: Patient Teaching Methods: Demonstration, Discussion Response to Teaching: Verbalize Understanding, Reinforcement Needed OT [place] Leadperson Goals Nursing Home Goals Eating (QC): 6 Oral Hygiene (QC): 6 Toileting Hygiene (QC): 6 Shower/Bathe Self (QC): 4 Upper Body Dressing (QC): 6 Lower Body Dressing (QC): 5 On/Off Footwear (QC): 6 1=Demonstrate adherence to instructed precautions during ADL tasks. 2=Patient will verbalize/demonstrate understanding of assistive devices/ modifications for ADL. 3=Patient will improve strength/tolerance for activity to enable patient to perform ADL's. OT Education/Plan Problem List/Assessment Assessment: Decreased Activ Tolerance, Decreased Safety Aware, Impaired Self- Care Skills Discharge Recommendations Plan/Recommendations: Continue POC Treatment Plan/Plan of Care Treatment,Training & Education: Yes Patient would benefit from OT for education, treatment and training to promote independence in ADL's, mobility, safety and/or upper extremity function for A DL's. Plan of Care: ADL Retraining, Functional Mobility Treatment Duration: Feb 15, 2023 Frequency: 3 times per week (3-5 times per week) Estimated Hrs Per Day: .25 hour per day Agreement: Yes Rehab Potential: Guarded Time Start Time: 13:48 Stop Time: 14:00 DATE: Feb 12, 2023 Total Time Billed (hr/min): 12 Billed Treatment Time EVSEBASTIAN SHETH OT Feb 12, 2023 14:30
--- NOTE | 2023-02-12 14:44 | Physical Therapy Progress Note ---
Therapy Progress Note Patient refused PT treatment reporting when she was trying to get up this morning, she turned her neck wrong and felt/heard a loud pop. Reports she hasn't been able to turn her head since this morning. Patient requested to wait until tomorrow to perform any further activity. MIRTHA BETANCOURT PT Feb 12, 2023 14:44
[2023-02-12 16:17] VITALS: BP 134/74
[2023-02-12 19:33] VITALS: BP 125/83
[2023-02-12] MEDS: AtorvaSTATin TABLET 10 MG TABLET PO SCH (20:15)
[2023-02-12] MEDS: GABAPENTIN 300 MG (NEURONTIN) CAP PO SCH (20:15)
[2023-02-12 23:37] VITALS: BP 135/64
[2023-02-13 03:39] VITALS: BP 123/81
[2023-02-13] MEDS: inSUlin ASPART (NovoLOG) 1 UNIT/0.01 ML (CHARGE PER UNIT) SC SCH ×4 (05:26→19:59)
[2023-02-13 06:17] LABS: BASOPHILS % (AUTO) 0 % (0-10); EOSINOPHILS # (AUTO) 0.2 10^3/uL (0.0-0.3); EOSINOPHILS % (AUTO) 2 % (0-10); HEMATOCRIT 36 % (35-52); HEMOGLOBIN 11.2 g/dL (11.5-16.0); LYMPHOCYTES # (AUTO) 0.8 10^3/uL (1.0-4.0); LYMPHOCYTES % (AUTO) 10 % (12-44); MEAN CORPUSCULAR HEMOGLOBIN 29 pg (25-34); MEAN CORPUSCULAR HGB CONC 31 g/dL (32-36); MEAN CORPUSCULAR VOLUME 93 fL (80-99); MEAN PLATELET VOLUME 12.7 fL (9.0-12.2); MONOCYTES # (AUTO) 0.8 10^3/uL (0.0-1.0); MONOCYTES % (AUTO) 11 % (0-12); NEUTROPHILS # (AUTO) 5.5 10^3/uL (1.8-7.8); NEUTROPHILS % (AUTO) 73 % (42-75); PLATELET COUNT 180 10^3/uL (130-400); WHITE BLOOD COUNT 7.5 10^3/uL (4.3-11.0)
[2023-02-13 06:26] LABS: ALBUMIN 3.1 GM/DL (3.2-4.5); POTASSIUM 4.6 MMOL/L (3.6-5.0)
[2023-02-13 06:27] LABS: CALCIUM 8.7 MG/DL (8.5-10.1)
[2023-02-13 06:28] LABS: TOTAL PROTEIN 6.2 GM/DL (6.4-8.2)
[2023-02-13] MEDS: POTASSIUM CL 10MEQ/50ML IVPB 50 ML IV SCH (06:29)
[2023-02-13] MEDS: KCL 20 MEQ TAB (K-DUR) PO SCH (06:29)
[2023-02-13 06:30] LABS: BILIRUBIN,TOTAL 0.5 MG/DL (0.1-1.0)
[2023-02-13 06:32] LABS: CREATININE SERUM 2.05 MG/DL (0.60-1.30); PHOSPHORUS 3.3 MG/DL (2.3-4.7)
[2023-02-13 06:35] LABS: MAGNESIUM 2.5 MG/DL (1.6-2.4)
[2023-02-13] MEDS: MAGNESIUM 1 GM/100 ML IVPB 100 ML IV SCH (06:44)
[2023-02-13 07:21] VITALS: BP 106/67
[2023-02-13] MEDS: PANTOPRAZOLE 40 MG (PROTONIX) TAB PO SCH (08:06)
[2023-02-13] MEDS: OMEGA 3 (FISH OIL) 1000 MG CAP PO SCH (08:06)
[2023-02-13] MEDS: ASPIRIN E.C. 81 MG (ECOTRIN) TAB PO SCH (08:06)
[2023-02-13] MEDS: VITAMIN D3 25 MCG (1,000 UNITS) TABLET PO SCH (08:06)
--- NOTE | 2023-02-13 11:13 | Physical Therapy Daily Note ---
PT Daily Note-Current Subjective Patient agrees to PT. Pain Section J - Health Conditions 1. Rarely or not at all 2. Occasionally 3. Frequently 4. Almost constantly 8. Unable to answer Pain Effect on Sleep: 2 Pain Interference with Therapy: 2 Pain Interference w/Day-to-Day: 2 Mental Status Patient Orientation: Person, Time, Situation Attachments: Oxygen Transfers SCALE: Activities may be completed with or without assistive devices. 0-Zignanphlt-foyqtmj completes the activity by him/herself with no assistance from a helper. 5-Set-up or Clean-up Assistance-helper sets up or cleans up; patient completes activity. [place] assists only prior to or following the activity. 4-Supervision or Touching Assistance-helper provides verbal cues and/or touching/steadying and/or contact guard assistance as patient completes activity. Assistance may be provided throughout the activity or intermittently. 3-Partial/Moderate Assistance-helper does LESS THAN HALF the effort. [place] lifts, holds or supports trunk or limbs, but provides less than half the effort. 2-Substantial/Maximal Assistance-helper does MORE THAN HALF the effort. [place] lifts or holds trunk or limbs and provides more than half the effort. 8-Gcoxymqpd-ibnwgf does ALL the effort. Patient does none of the effort to complete the activity. Or, the assistance of 2 or more helpers is required for the patient to complete the activity. If activity was not attempted, code reason: 7-Patient Refused. 9-Not Applicable-not attempted and the patient did not perform the activity before the current illness, exacerbation or injury. 10-Not Attempted due to Environmental Limitations-(lack of equipment, weather restraints, etc.). 88-Not Attempted due to Medical Conditions or Safety Concerns. Lying to Sitting/Side of Bed(Q: 6 Sit to Stand (QC): 4 Chair/Nui-sv-Mqlbi Xfer(QC): 4 Weight Bearing Right Lower Extremity: Right Full Weight Bearing Left Lower Extremity: Left Full Weight Bearing Gait Training Distance: 180' Walk 10 feet (QC): 4 Walk 50 ft with 2 Turns(QC): 4 Walk 150 ft (QC): 4 Gait Assistive Device: FWW multiple standing recovery periods due to fatigue Assessment Patient requires time to complete all functional tasks and is up in recliner with needs met. PT to continue to increase activity as tolerated by patient. PT It Field Technician Goals Correction Goals PT It Field Technician Goals Time Frame: Feb 28, 2023 Roll Left & Right (QC): 6 Sit to Lying (QC): 6 Lying-Sitting on Side/Bed(QC): 6 Sit to Stand (QC): 6 Chair/Uis-au-Eboxr Xfer(QC): 6 Toilet Transfer (QC): 6 Does the Patient Walk: Yes Walk 10 feet (QC): 6 Walk 50ft with 2 Turns (QC): 6 Walk 150 ft (QC): 6 PT Plan Treatment/Plan Treatment Plan: Continue Plan of Care Treatment Plan: Bed Mobility, Education, Functional Activity Edward, Functional Strength, Group Therapy, Gait, Safety, Therapeutic Exercise, Transfers Treatment Duration: Feb 28, 2023 Frequency: 6 times per week Estimated Hrs Per Day: .25 hour per day Patient and/or Family Agrees t: Yes Time Time In: 936 Time Out: 949 DATE: Feb 13, 2023 Total Billed Treatment Time: 13 Total Billed Treatment 1 visit FA 13 min RUDDY VARGAS PT Feb 13, 2023 11:13
[2023-02-13] MEDS: cefTRIAXone IV/IM 1,000 MG in NS (IVPB) 50 ML IV SCH (11:34)
[2023-02-13 11:42] VITALS: BP 131/72
--- NOTE | 2023-02-13 13:51 | Progress Note - Hospitalist ---
Subjective HPI/CC On Admission Date Seen by Provider: Feb 13, 2023 Patient is an 82-year-old female with past medical history of A-fib, kvm-vftqytv-hhjcqmctj diabetes, hyperlipidemia who presented to the emergency department due to weakness and hypotension. She reports that she went to the bathroom because she has been having urinary frequency lately. When she was leaving the bathroom she did not have her walker and felt weak and went to reach for it and then slid down to the ground using her bed. She denies actually falling, hitting her head, or loss of consciousness. She tried to get up but just could not. EMS was summoned and she was found to be quite hypotensive with a soft systolic blood pressure in the 60s and 70s. Blood sugar in the field was too high to read. In the ER she was found to have a blood sugar of 573. Urine was concerning for infection and she was found to have a leukocytosis and lactic acidosis along with acute kidney injury. She was admitted to the ICU for further management. She reports feeling okay now and better than when she did on arrival. She has no other complaints. Subjective/Events-last exam Pt reports doing better today. Neck still sore but much improved. Objective Exam Vital Signs Vital Signs Date Time Temp Pulse Resp B/P (MAP) Pulse Ox O2 Delivery O2 Flow Rate FiO2 02/13/23 11:42 36.0 85 20 131/72 (91) 98 Nasal Cannula 1.50 Capillary Refill : Less Than 3 Seconds General Appearance: No Apparent Distress, WD/WN Respiratory: Lungs Clear Cardiovascular: Regular Rate, Rhythm, No Murmur Gastrointestinal: Normal Bowel Sounds, Soft Neurologic/Psychiatric: Alert, Oriented x3 Results/Procedures Lab Laboratory Tests 02/13/23 05:13 Patient resulted labs reviewed. Imaging: Reviewed Imaging Report Assessment/Plan Assessment and Plan Assess & Plan/Chief Complaint Severe Sepsis- resolved UTI- e coli with bacteremia ROSAS on CKD Stage 3 Continue IV abx until sensitivities back Urine culture with e coli and blood culture klebsiella actually- await sensitivities Creatininee basically at baseline PT/OT Uncontrolled NIDDMII SSI A1c 13.4 Continue Levemir, increase dose Diabetes education needed New lung mass No known history Discussed need for outpatient follow up of this after infection cleared Referral placed for Dr Moore as mass does not appear amenable to IR biopsy per [facility] Informed patient of need for this follow up Spoke with Dr Kyle regarding this today A fib compensated dCHF Follows with Dr Blandon Continue home meds as appropriate Does not appear to be on anticoagulation (likely due to history of GI bleeds) DVT ppx: SCDs Critical Care Critically Ill Patient OPAL NOVAK MD Feb 13, 2023 13:50
--- NOTE | 2023-02-13 14:04 | Occupational Ther Daily Note ---
OT Current Status-Daily Note Subjective Agreeable to OT Mental Status/Objective Patient Orientation: Person, Place, Time, Situation Attachments: Oxygen (2 liters w/ theapy 1.5 at rest) ADL-Treatment Therapy Code Descriptions/Definitions Functional [place] Measure: 0=Not Assessed/NA 4=Minimal Assistance 1=Total Assistance 5=Supervision or Setup 2=Maximal Assistance 6=Modified [place] 3=Moderate Assistance 7=Complete IndependenceSCALE: Activities may be completed with or without assistive devices. 7-Uezhztzvmb-mmvzmvs completes the activity by him/herself with no assistance from a helper. 5-Set-up or Clean-up Assistance-helper sets up or cleans up; patient completes activity. [place] assists only prior to or following the activity. 4-Supervision or Touching Assistance-helper provides verbal cues and/or touching/steadying and/or contact guard assistance as patient completes activity. Assistance may be provided throughout the activity or intermittently. 3-Partial/Moderate Assistance-helper does LESS THAN HALF the effort. [place] lifts, holds or supports trunk or limbs, but provides less than half the effort. 2-Substantial/Maximal Assistance-helper does MORE THAN HALF the effort. [place] lifts or holds trunk or limbs and provides more than half the effort. 7-Kchzpojru-zuxgsn does ALL the effort. Patient does none of the effort to complete the activity. Or, the assistance of 2 or more helpers is required for the patient to complete the activity. If activity was not attempted, code reason: 7-Patient Refused. 9-Not Applicable-not attempted and the patient did not perform the activity before the current illness, exacerbation or injury. 10-Not Attempted due to Environmental Limitations-(lack of equipment, weather restraints, etc.). 88-Not Attempted due to Medical Conditions or Safety Concerns. Eating (QC): 6 Oral Hygiene (QC): 5 Shower/Bathe Self (QC): 7 Upper Body Dressing (QC): 5 Lower Body Dressing (QC): 5 (brief) On/Off Footwear: 5 Toileting Hygiene (QC): 5 Toilet Transfer (QC): 5 Education OT Patient Education: Energy conservation, Modified ADL techniques, Progress toward Goal/Update tx plan, Purpose of tx/functional activities, Reviewed precautions, Rehab process, Safety issues Teaching Recipient: Patient Teaching Methods: Discussion Response to Teaching: Return Demonstration OT Fpc Goals Fpc Goals Eating (QC): 6 Oral Hygiene (QC): 6 Toileting Hygiene (QC): 6 Shower/Bathe Self (QC): 4 Upper Body Dressing (QC): 6 Lower Body Dressing (QC): 5 On/Off Footwear (QC): 6 1=Demonstrate adherence to instructed precautions during ADL tasks. 2=Patient will verbalize/demonstrate understanding of assistive devices/modifications for ADL. 3=Patient will improve strength/tolerance for activity to enable patient to perform ADL's. OT Education/Plan Problem List/Assessment Assessment: Decreased Activ Tolerance, Impaired Self-Care Skills Discharge Recommendations Plan/Recommendations: Continue POC Treatment Plan/Plan of Care Patient would benefit from OT for education, treatment and training to promote independence in ADL's, mobility, safety and/or upper extremity function for ADL's. Plan of Care: ADL Retraining, Functional Mobility Treatment Duration: Feb 15, 2023 Frequency: 3 times per week (3-5 times per week) Estimated Hrs Per Day: .25 hour per day Agreement: Yes Rehab Potential: Guarded Time Start Time: 09:36 Stop Time: 09:49 DATE: Feb 13, 2023 Total Time Billed (hr/min): 13 Billed Treatment Time ADL 13 SEBASTIAN GAN OT Feb 13, 2023 14:04
[2023-02-13 16:00] VITALS: BP 165/85
[2023-02-13 19:41] VITALS: BP 142/65
[2023-02-13] MEDS: GABAPENTIN 300 MG (NEURONTIN) CAP PO SCH (19:59)
[2023-02-13] MEDS: AtorvaSTATin TABLET 10 MG TABLET PO SCH (20:00)
[2023-02-13 23:04] VITALS: BP 127/79
[2023-02-14] MEDS: CYCLOBENZAPRINE 10 MG (FLEXERIL) TAB PO PRN (01:14)
[2023-02-14 03:42] VITALS: BP 120/57
[2023-02-14] MEDS: inSUlin ASPART (NovoLOG) 1 UNIT/0.01 ML (CHARGE PER UNIT) SC SCH ×2 (05:35→11:16)
[2023-02-14 05:44] LABS: BASOPHILS % (AUTO) 1 % (0-10); EOSINOPHILS # (AUTO) 0.3 10^3/uL (0.0-0.3); EOSINOPHILS % (AUTO) 3 % (0-10); HEMATOCRIT 35 % (35-52); HEMOGLOBIN 11.3 g/dL (11.5-16.0); LYMPHOCYTES # (AUTO) 0.9 10^3/uL (1.0-4.0); LYMPHOCYTES % (AUTO) 12 % (12-44); MEAN CORPUSCULAR HEMOGLOBIN 29 pg (25-34); MEAN CORPUSCULAR HGB CONC 32 g/dL (32-36); MEAN CORPUSCULAR VOLUME 92 fL (80-99); MEAN PLATELET VOLUME 12.6 fL (9.0-12.2); MONOCYTES # (AUTO) 0.8 10^3/uL (0.0-1.0); MONOCYTES % (AUTO) 10 % (0-12); NEUTROPHILS # (AUTO) 5.6 10^3/uL (1.8-7.8); NEUTROPHILS % (AUTO) 69 % (42-75); PLATELET COUNT 187 10^3/uL (130-400)
[2023-02-14 06:02] LABS: ALBUMIN 3.1 GM/DL (3.2-4.5); POTASSIUM 4.5 MMOL/L (3.6-5.0)
[2023-02-14 06:03] LABS: CALCIUM 8.7 MG/DL (8.5-10.1)
[2023-02-14] MEDS: POTASSIUM CL 10MEQ/50ML IVPB 50 ML IV SCH (06:03)
[2023-02-14] MEDS: KCL 20 MEQ TAB (K-DUR) PO SCH (06:03)
[2023-02-14 06:04] LABS: TOTAL PROTEIN 6.1 GM/DL (6.4-8.2)
[2023-02-14 06:06] LABS: BILIRUBIN,TOTAL 0.4 MG/DL (0.1-1.0)
[2023-02-14 06:08] LABS: CREATININE SERUM 1.95 MG/DL (0.60-1.30)
[2023-02-14 06:11] LABS: MAGNESIUM 2.3 MG/DL (1.6-2.4)
[2023-02-14] MEDS: MAGNESIUM 1 GM/100 ML IVPB 100 ML IV SCH (06:13)
[2023-02-14 08:02] VITALS: BP 117/76
[2023-02-14] MEDS ORDERED: INSU100I14 SQ (08:06)
[2023-02-14] MEDS ORDERED: CEPH500T PO (08:06)
[2023-02-14] MEDS ORDERED: INSU100I88 SQ (08:06)
--- NOTE | 2023-02-14 08:07 | D/C HH Face to Face Order ---
D/C Face to Face Orders Instructions for Patient Via [facility], Patient Instructions/FollowUp: Please continue to take your medications as written. Please follow up with your primary care doctor to follow up this hospital stay. Physician to follow Patient: Dr Kyle Discharge Diet for Home: ADA Diet Patient Data-Allergies,Ht & Wt Patient Allergies: Coded Allergies: NKANo Known Allergies (Verified Allergy, Unknown, 03/26/06) Height (Feet): 5 Height (Inches): 1.50 Weight (Pounds): 191 Weight (Ounces): 8.0 Home Health Need/Face to Face Date of Face to Face: Feb 14, 2023 Clinical Findings: Generalized weakness and fatigue, Muscle weakness I have seen Pt [id number]: Yes Discharged To: Home Diagnosis/Conditions: Sepsis, bacteremia, diabetes Patient is Homebound due to: Muscle weakness Homebound Status Due to the above stated illness, injury or surgical procedure (medical condition or diagnosis) and associated clinical findings, the patient is homebo und because of his/her inability to leave home except with aid of a supportive device and/or person AND leaving the home requires a considerable and taxing effort or is medically contraindicated. Pt req the following assistanc: Aid of another person, [facility] Health Nursing Orders Home Health Services Order: Nursing Services, Delivery Professional-Evaluate & Treat, Physical Therapy-Evaluate & Treat med set up, new insulin use Home Health Infusion Therapy Line Start Date: Feb 10, 2023 Therapy Orders Therapy Orders: OT (must have SN or PT order), Physical Therapy Therapy Specific Orders: Eval assistive deivces, Teach enviro modifications/safety, Gait training, Increase strength/endurance Certify Stmt I certify that this patient is under my care and that I, a nurse practitioner or a physician; a diversional therapist's assistant working with me, had a face to face encounter that - meets the physician face to face encounter requirements with this patient as dated. OPAL NOVAK MD Feb 14, 2023 08:07
--- NOTE | 2023-02-14 08:08 | Discharge Summary ---
Diagnosis/Chief Complaint Date of Admission Feb 10, 2023 at 12:54 Date of Discharge Discharge Date: Feb 14, 2023 Admission Diagnosis Severe Sepsis Primary Care Nilton Kyle DO Discharge Summary Discharge Physical Exam Allergies: Coded Allergies: Vu Known Allergies (Verified Allergy, Unknown, 03/26/06) Vitals & I&Os Vital Signs Date Time Temp Pulse Resp B/P (MAP) Pulse Ox O2 Delivery O2 Flow Rate FiO2 02/14/23 12:37 36.4 73 16 117/77 (90) 94 Room Air 02/13/23 16:00 1.00 General Appearance: No Apparent Distress, Chronically ill, Obese Respiratory: Lungs Clear Cardiovascular: Regular Rate, Rhythm, No Murmur Neurologic/Psychiatric: Alert, Oriented x3 Hospital Course Patient was admitted to the hospital secondary to sepsis due to urinary tract infection and hyperglycemia. She was treated with IV antibiotics and did well. Her blood cultures returned and were positive for Klebsiella. She was transitioned to oral antibiotics per sensitivities upon discharge. She did have profound hyperglycemia in the 500s on arrival. Her A1c was checked and was found to be 13.4. She was started on insulin and education was given regarding this. She was comfortable administering her own insulin upon discharge but was worried about the cost. Social work did assist patient with this. I did call and update her primary care physician regarding this hospitalization and her lab findings. She was discharged home with home health in stable and improved condi tion to follow-up with Dr. Kyle. Labs (last 24 hrs) Laboratory Tests 02/14/23 12:24: Glucometer 459*H 02/14/23 13:34: Glucometer 408*H 02/14/23 14:00: Glucometer 390H Microbiology 02/10/23 MRSA Screen - Final, Complete MRSA not isolated 02/10/23 Urine Culture - Final, Complete Escherichia coli 02/10/23 Blood Culture - Final, Complete Klebsiella pneumoniae Patient resulted labs reviewed. Pending Labs Imaging: Reviewed Imaging Report Discussion & Recommendations Discharge Planning: >30 minutes discharge planning Discharge Home Medications: Active Scripts Active Novolog Flexpen (Insulin Aspart) 100 Unit/Ml (3 Ml) Solution 4 Units SQ AC Levemir Flexpen (Insulin Detemir) 100 Unit/Ml (3 Ml) Insuln.pen 10 Unit SQ HS Cephalexin 500 Mg Tablet 500 Mg PO BID Reported Carvedilol 25 Mg Tablet 25 Mg PO BID Aspirin EC (Aspirin) 81 Mg Tablet.dr 81 Mg PO DAILY K-Tab ER (Potassium Chloride) 10 Meq Tablet.er 10 Meq PO DAILY Neurontin (Gabapentin) 300 Mg Capsule 600 Mg PO HS TAKES 2 (300MG) CAPS Tramadol HCl 50 Mg Tablet 50 Mg PO QID PRN Farxiga (Dapagliflozin Propanediol) 5 Mg Tablet 5 Mg PO DAILY Baxter-3 Acid Ethyl Esters 1 Gram Capsule 1 Gm PO DAILY Vitamin D3 (Cholecalciferol (Vitamin D3)) 25 Mcg (1000 Unit) Capsule 25 Mcg PO DAILY Furosemide 80 Mg Tablet 80 Mg PO DAILY Pantoprazole Sodium 40 Mg Tablet.dr 40 Mg PO DAILY Instructions to patient/family Please see electronic discharge instructions given to patient. OPAL NOVAK MD Feb 14, 2023 08:08
[2023-02-14] MEDS: ASPIRIN E.C. 81 MG (ECOTRIN) TAB PO SCH (09:49)
[2023-02-14] MEDS: PANTOPRAZOLE 40 MG (PROTONIX) TAB PO SCH (09:49)
[2023-02-14] MEDS: OMEGA 3 (FISH OIL) 1000 MG CAP PO SCH (09:49)
[2023-02-14] MEDS: VITAMIN D3 25 MCG (1,000 UNITS) TABLET PO SCH (09:49)
[2023-02-14] MEDS: cefTRIAXone IV/IM 1,000 MG in NS (IVPB) 50 ML IV SCH (11:16)
--- NOTE | 2023-02-14 11:41 | Occupational Ther Daily Note ---
OT Current Status-Daily Note Subjective Patient resting in bed agreeable to OT Mental Status/Objective Patient Orientation: Person, Place, Time, Situation ADL-Treatment RT present for 02 needs assessment Therapy Code Descriptions/Definitions Functional Antelope Measure: 0=Not Assessed/NA 4=Minimal Assistance 1=Total Assistance 5=Supervision or Setup 2=Maximal Assistance 6=Modified Antelope 3=Moderate Assistance 7=Complete IndependenceSCALE: Activities may be completed with or without assistive devices. 7-Gbhiuryksm-[id number] completes the activity by him/herself with no assistance from a helper. 5-Set-up or Clean-up Assistance-helper sets up or cleans up; patient completes activity. Jermyn assists only prior to or following the activity. 4-Supervision or Touching Assistance-helper provides verbal cues and/or ramona joe/steadying and/or contact guard assistance as patient completes activity. Assistance may be provided throughout the activity or intermittently. 3-Partial/Moderate Assistance-helper does LESS THAN HALF the effort. Jermyn lifts, holds or supports trunk or limbs, but provides less than half the effort. 2-Substantial/Maximal Assistance-helper does MORE THAN HALF the effort. Jermyn lifts or holds trunk or limbs and provides more than half the effort. 4-Zeqgfgqbh-mcubtj does ALL the effort. Patient does none of the effort to complete the activity. Or, the assistance of 2 or more helpers is required for the patient to complete the activity. If activity was not attempted, code reason: 7-Patient Refused. 9-Not Applicable-not attempted and the patient did not perform the activity before the current illness, exacerbation or injury. 10-Not Attempted due to Environmental Limitations-(lack of equipment, weather restraints, etc.). 88-Not Attempted due to Medical Conditions or Safety Concerns. Eating (QC): 6 Oral Hygiene (QC): 6 Toileting Hygiene (QC): 4 (Patient reports she does not fully wipe at home and that she has a different toilet at home) Toilet Transfer (QC): 6 Patient presented w/ harsh forced breathing when transferring out of bed, RT performed assessment during bed mobility Education OT Patient Education: Correct positioning, Modified ADL techniques, Progress toward Goal/Update tx plan, Purpose of tx/functional activities, Reviewed precautions, Rehab process, Safety issues, Transfer techniques Teaching Recipient: Patient Teaching Methods: Demonstration Response to Teaching: Return Demonstration OT Fpc Goals Fpc Goals Eating (QC): 6 Oral Hygiene (QC): 6 Toileting Hygiene (QC): 6 Shower/Bathe Self (QC): 4 Upper Body Dressing (QC): 6 Lower Body Dressing (QC): 5 On/Off Footwear (QC): 6 1=Demonstrate adherence to instructed precautions during ADL tasks. 2=Patient will verbalize/demonstrate understanding of assistive devices/modifications for ADL. 3=Patient will improve strength/tolerance for activity to enable patient to perform ADL's. OT Education/Plan Discharge Recommendations Plan/Recommendations: Discharge/Goals Met Therapy Discharge Recommendati: Home & Family Treatment Plan/Plan of Care Patient would benefit from OT for education, treatment and training to promote independence in ADL's, mobility, safety and/or upper extremity function for ADL's. Plan of Care: ADL Retraining, Functional Mobility Treatment Duration: Feb 15, 2023 Frequency: 3 times per week (3-5 times per week) Estimated Hrs Per Day: .25 hour per day Agreement: Yes Rehab Potential: Guarded return to recliner, all needs met Time Start Time: 10:30 Stop Time: 10:42 DATE: Feb 14, 2023 Total Time Billed (hr/min): 12 Billed Treatment Time ADL 12 SEBASTIAN GAN OT Feb 14, 2023 11:41
[2023-02-14 12:37] VITALS: BP 117/77
[2023-02-14] MEDS ORDERED: inSUlin ASPART (NovoLOG) 1 UNIT/0.01 ML (CHARGE PER UNIT) SC NR (13:00)
== END 2023-02-14 15:20 | disposition home health service (06) | DRG 872 ==
LOC: EDUNIT# 08:43 → ER 08:44 → ICU 12:54 → 4TH 02-11 11:55
PROVIDERS: ADMIT Family Medicine; ATTEND Family Medicine
DX: A41.51 Sepsis due to Escherichia coli [E. coli] (principal); N39.0 Urinary tract infection, site not specified; N17.9 Acute kidney failure, unspecified; E87.20 Acidosis, unspecified; I13.0 Hypertensive heart and chronic kidney disease with heart failure and stage 1 through stage 4 chronic kidney disease, or unspecified chronic kidney disease; I50.32 Chronic diastolic (congestive) heart failure; I42.9 Cardiomyopathy, unspecified; E87.1 Hypo-osmolality and hyponatremia; A41.59 Other Gram-negative sepsis; R91.8 Other nonspecific abnormal finding of lung field; I48.91 Unspecified atrial fibrillation; E11.65 Type 2 diabetes mellitus with hyperglycemia; E11.40 Type 2 diabetes mellitus with diabetic neuropathy, unspecified; J44.9 Chronic obstructive pulmonary disease, unspecified; E11.22 Type 2 diabetes mellitus with diabetic chronic kidney disease; N18.30 Chronic kidney disease, stage 3 unspecified; E78.00 Pure hypercholesterolemia, unspecified; I25.10 Atherosclerotic heart disease of native coronary artery without angina pectoris; F03.90 Unspecified dementia, unspecified severity, without behavioral disturbance, psychotic disturbance, mood disturbance, and anxiety; K21.9 Gastro-esophageal reflux disease without esophagitis; M19.90 Unspecified osteoarthritis, unspecified site; E66.9 Obesity, unspecified; Z68.38 Body mass index [BMI] 38.0-38.9, adult; F32.A Depression, unspecified; I25.2 Old myocardial infarction; Z79.01 Long term (current) use of anticoagulants; Z79.84 Long term (current) use of oral hypoglycemic drugs; Z87.891 Personal history of nicotine dependence; Z95.5 Presence of coronary angioplasty implant and graft; Z79.899 Other long term (current) drug therapy; Z79.82 Long term (current) use of aspirin
CPT/HCPCS: 36415; 51701; 71045; 71250; 80053; 81000; 82947; 83036; 83605; 83735; 84100; 84484; 85007; 85025; 85027; 85610; 85730; 87040; 87077; 87081; 87088; 87186; 93005; 94761

== ENCOUNTER 2023-03-30 15:32 | Inpatient (IN) | payer MEDICARE, MEDICAID ==
[~2023-03-30] VITALS: Ht 157.5 cm; Wt 83.5 kg
[~2023-03-30 15:32] MED LIST changes: +CEPH500T PO; +INSU100I14 SQ; +INSU100I88 SQ; +LOVA10TA PO; +POTA-185 PO; -POTA10CA44 PO; +POTA10CA84 PO; -POTA10TA PO
[2023-03-30 15:57] LABS: BASOPHILS # (AUTO) 0.1 10^3/uL (0.0-0.1); BASOPHILS % (AUTO) 1 % (0-10); EOSINOPHILS # (AUTO) 0.2 10^3/uL (0.0-0.3); EOSINOPHILS % (AUTO) 2 % (0-10); HEMATOCRIT 41 % (35-52); HEMOGLOBIN 12.6 g/dL (11.5-16.0); LYMPHOCYTES # (AUTO) 0.7 10^3/uL (1.0-4.0); LYMPHOCYTES % (AUTO) 7 % (12-44); MEAN CORPUSCULAR HEMOGLOBIN 29 pg (25-34); MEAN CORPUSCULAR HGB CONC 31 g/dL (32-36); MEAN CORPUSCULAR VOLUME 94 fL (80-99); MEAN PLATELET VOLUME 11.4 fL (9.0-12.2); MONOCYTES % (AUTO) 9 % (0-12); NEUTROPHILS # (AUTO) 8.6 10^3/uL (1.8-7.8); NEUTROPHILS % (AUTO) 79 % (42-75); PLATELET COUNT 233 10^3/uL (130-400); WHITE BLOOD COUNT 10.8 10^3/uL (4.3-11.0)
[2023-03-30 15:58] LABS: ALBUMIN 3.3 GM/DL (3.2-4.5); POTASSIUM 6.2 MMOL/L (3.6-5.0)
[2023-03-30 15:59] LABS: CALCIUM 9.2 MG/DL (8.5-10.1)
[2023-03-30] MEDS ORDERED: NS IV 1000 ML 1,000 ML IV SCH ×2 (16:00→16:45)
[2023-03-30] MEDS ORDERED: fentaNYL INJ 100 MCG/2 ML AMP IVP ONE (16:00)
[2023-03-30 16:01] LABS: TOTAL PROTEIN 7.3 GM/DL (6.4-8.2)
[2023-03-30 16:02] LABS: BILIRUBIN,TOTAL 0.7 MG/DL (0.1-1.0)
[2023-03-30 16:04] LABS: CREATININE SERUM 3.37 MG/DL (0.60-1.30)
[2023-03-30 16:15] LABS: ANISOCYTOSIS SLIGHT; BAND NEUTROPHILS 3 %; BASOPHILS % (MANUAL) 0 %; EOSINOPHILS % (MANUAL) 1 %; LYMPHOCYTES % (MANUAL) 7 %; MONOCYTES % (MANUAL) 5 %; NEUTROPHILS % (MANUAL) 84 %
--- NOTE | 2023-03-30 16:22 | ED General ---
General Chief Complaint: Back Problems Stated Complaint: BACK PAIN Nursing Triage Note: PT TO [facility] BY [facility] WITH C/O SEVERE BACK PAIN TODAY, UNABLE TO GET UP ON OWN AND RECENT FINDING OF LUNG MASSES LAST WEEK Source of Information: Patient, EMS, Old Records, Other (Dr. Kyle) Exam Limitations: No Limitations History of Present Illness Date Seen by Provider: Mar 30, 2023 Time Seen by Provider: 15:36 Initial Comments This 82-year-old woman presents to the emergency room via EMS with primary complaint of severe right lower and mid back pain. This pain is somewhat debilitating, and she has not been able to walk independently today. She had been admitted for severe sepsis and a UTI in January. During that admission a pulmonary mass was identified. She has had follow-up with Dr. Kyle and was referred to Dr. Berman. A lung biopsy was performed on Friday at [facility]. On review of her notes from prior admission, chronic kidney disease was noted. She also had cholelithiasis noted on imaging. Patient is afebrile. She has not had vomiting or diarrhea. She denies any recent trauma. She appears to have some early dementia and defers to her sister, Ana Lilia, as a alternate source of information and surrogate decision maker. Ana Lilia is not present in the ER today. Patient reports "blisters" on her backside. Stage II decubitus ulcers are noted on the buttocks. Allergies and Home Medications Allergies Coded Allergies: Vu Known Allergies (Verified Allergy, Unknown, 03/26/06) Patient Home Medication List Home Medication List Reviewed: Yes Aspirin (Aspirin EC) 81 Mg Tablet., 81 MG PO DAILY, (Reported) Entered as Reported by: CHRISSIE JACOB on 07/16/22 1425 Carvedilol (Carvedilol) 25 Mg Tablet, 25 MG PO BID, (Reported) Entered as Reported by: CHRISSIE JACOB on 02/10/23 1538 Cephalexin (Cephalexin) 500 Mg Tablet, 500 MG PO BID Prescribed by: OPAL GOLDMAN on 02/14/23 0806 Cholecalciferol (Vitamin D3) (Vitamin D3) 25 Mcg (1000 Unit) Capsule, 25 MCG PO DAILY, (Reported) Entered as Reported by: CHRISSIE JACOB on 07/16/22 1424 Dapagliflozin Propanediol (Farxiga) 5 Mg Tablet, 5 MG PO DAILY, (Reported) Entered as Reported by: CHRISSIE JACOB on 07/16/22 142 Furosemide (Furosemide) 80 Mg Tablet, 80 MG PO DAILY, (Reported) Entered as Reported by: URIAH EASLEY on 01/27/19 0928 Gabapentin (Neurontin) 300 Mg Capsule, 600 MG PO HS, (Reported) Entered as Reported by: CHRISSIE JACOB on 07/16/22 142 Insulin Aspart (Novolog Flexpen) 100 Unit/Ml (3 Ml) Solution, 4 UNITS SQ AC Prescribed by: OPAL GOLDMAN on 02/14/23 0806 Insulin Detemir (Levemir Flexpen) 100 Unit/Ml (3 Ml) Insuln.pen, 10 UNIT SQ HS Prescribed by: OPAL GOLDMAN on 02/14/23 0806 Lovastatin (Lovastatin) 10 Mg Tablet, 10 MG PO HS, (Reported) Entered as Reported by: CHRISSIE JACOB on 02/10/23 1538 Sayner-3 Acid Ethyl Esters (Sayner-3 Acid Ethyl Esters) 1 Gram Capsule, 1 GM PO DAILY, (Reported) Entered as Reported by: CHRISSIE JACOB on 07/16/22 142 Pantoprazole Sodium (Pantoprazole Sodium) 40 Mg Tablet.dr, 40 MG PO DAILY, (Reported) Entered as Reported by: URIAH EASLEY on 05/26/18 0858 Potassium Chloride (K-Tab ER) 10 Meq Tablet.er, 10 MEQ PO DAILY, (Reported) Entered as Reported by: CHRISSIE JACOB on 07/16/22 142 Tramadol HCl (Tramadol HCl) 50 Mg Tablet, 50 MG PO QID PRN for PAIN-MODERATE (5- 7), (Reported) Entered as Reported by: CHRISSIE JACOB on 07/16/22 142 Review of Systems Review of Systems Constitutional: see HPI, weakness EENTM: no symptoms reported Respiratory: see HPI Cardiovascular: no symptoms reported Gastrointestinal: see HPI Genitourinary: see HPI Musculoskeletal: see HPI Skin: see HPI, other Psychiatric/Neurological: See HPI Hematologic/Lymphatic: See HPI Immunological/Allergic: see HPI Past Uutvdqb-Hjxvth-Pnzdyd Hx Patient Social History Tobacco Use?: No Use of E-Cig and/or Vaping dev: No Substance use?: No Alcohol Use?: No Pt feels they are or have been: No Immunizations Up To Date Tetanus Booster (TDap): Unknown PED Vaccines UTD: No First/Initial COVID19 Vaccinat: 02/19 Second COVID19 Vaccination Maycol: 02/19 Third COVID19 Vaccination Date: 02/19 Seasonal Allergies Seasonal Allergies: No Past Medical History Surgery/Hospitalization HX: A FIB, LUNG MASSES, Surgeries: Yes (cyst breast bone, carpal tunnel, cardiac stents; BACK SURGERY, lung biopsy) Cardiac, Coronary Stent, Orthopedic Respiratory: Yes (Lung mass) COPD Currently Using CPAP: No Currently Using BIPAP: No Cardiac: Yes (CHF) Atrial Fibrillation, Cardiomyopathy, Chronic Edema/Swelling, Coronary Artery Disease, Heart Attack, High Cholesterol, Hypertension, Irregular Heartbeat Neurological: Yes Dementia, Neuropathy Reproductive Disorders: No Female 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 Sexually Transmitted Disease: No HIV/AIDS: No Genitourinary: Yes Renal Failure (Chronic kidney disease) Gastrointestinal: Yes Gastroesophageal Reflux, Gastrointestinal Bleed Musculoskeletal: Yes Arthritis, Chronic Back Pain Endocrine: Yes (OBESE) Diabetes, Non-Insulin dep HEENT: Yes Cataract Loss of Vision: Denies Hearing Impairment: Denies Cancer: No Psychosocial: Yes Depression Integumentary: No Blood Disorders: Yes (anemia) Adverse Reaction/Blood Tranf: No Family Medical History Cardiovascular disease 19 FATHER 19 MOTHER FH: stroke FHx: diabetes mellitus Heart Disease, Diabetes, Hypertension 01/2019--EGD 04/2020--STRESS TEST. Physical Exam Vital Signs Vital Signs - First Documented 03/30/23 15:34 Temp 36.5 Pulse 86 Resp 18 B/P (MAP) 99/54 (69) Pulse Ox 94 O2 Delivery Room Air Capillary Refill : Height, Weight, BMI Height: 5'1.50" Weight: 191lbs. 8.0oz. 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-XII Norm as Tested, Other (Mildly confused historian) Skin: Normal Color, Warm/Dry, Other (Stage I sacral ulcer, stage II ulcers on buttocks) Progress/Results/Core Measures Suspected Sepsis SIRS Temperature: Pulse: 86 Respiratory Rate: 18 Laboratory Tests 03/30/23 15:36: White Blood Count 10.8 Blood Pressure 99 /54 Mean: 69 Laboratory Tests 03/30/23 15:36: Creatinine 3.37H, Platelet Count 233, Total Bilirubin 0.7 Results/Orders Lab Results Laboratory Tests Test 03/30/23 15:36 03/30/23 18:11 Range/Units White Blood Count 10.8 4.3-11.0 10^3/uL Red Blood Count 4.35 3.80-5.11 10^6/uL Hemoglobin 12.6 11.5-16.0 g/dL Hematocrit 41 35-52 % Mean Corpuscular Volume 94 80-99 fL Mean Corpuscular Hemoglobin 29 25-34 pg Mean Corpuscular Hemoglobin Concent 31 L 32-36 g/dL Red Cell Distribution Width 19.9 H 10.0-14.5 % Platelet Count 233 130-400 10^3/uL Mean Platelet Volume 11.4 9.0-12.2 fL Immature Granulocyte % (Auto) 3 % Neutrophils (%) (Auto) 79 H 42-75 % Lymphocytes (%) (Auto) 7 L 12-44 % Monocytes (%) (Auto) 9 0-12 % Eosinophils (%) (Auto) 2 0-10 % Basophils (%) (Auto) 1 0-10 % Neutrophils # (Auto) 8.6 H 1.8-7.8 10^3/uL Lymphocytes # (Auto) 0.7 L 1.0-4.0 10^3/uL Monocytes # (Auto) 1.0 0.0-1.0 10^3/uL Eosinophils # (Auto) 0.2 0.0-0.3 10^3/uL Basophils # (Auto) 0.1 0.0-0.1 10^3/uL Immature Granulocyte # (Auto) 0.3 H 0.0-0.1 10^3/uL Neutrophils % (Manual) 84 % Lymphocytes % (Manual) 7 % Monocytes % (Manual) 5 % Eosinophils % (Manual) 1 % Basophils % (Manual) 0 % Band Neutrophils 3 % Anisocytosis SLIGHT Sodium Level 136 135-145 MMOL/L Potassium Level 6.2 H 3.6-5.0 MMOL/L Chloride Level 102 98-107 MMOL/L Carbon Dioxide Level 18 L 21-32 MMOL/L Anion Gap 16 H 5-14 MMOL/L Blood Urea Nitrogen 89 H 7-18 MG/DL Creatinine 3.37 H 0.60-1.30 MG/DL Estimat Glomerular Filtration Rate 13 BUN/Creatinine Ratio 26 Glucose Level 151 H 70-105 MG/DL Calcium Level 9.2 8.5-10.1 MG/DL Corrected Calcium 9.8 8.5-10.1 MG/DL Magnesium Level 3.0 H 1.6-2.4 MG/DL Total Bilirubin 0.7 0.1-1.0 MG/DL Aspartate Amino Transf (AST/SGOT) 45 H 5-34 U/L Alanine Aminotransferase (ALT/SGPT) 15 0-55 U/L Alkaline Phosphatase 140 H 40-136 U/L Total Protein 7.3 6.4-8.2 GM/DL Albumin 3.3 3.2-4.5 GM/DL Urine Color YELLOW Urine Clarity CLEAR Urine pH 6.0 5-9 Urine Specific [place] 1.010 L 1.016-1.022 Urine Protein NEGATIVE NEGATIVE Urine Glucose (UA) 2+ H NEGATIVE Urine Ketones NEGATIVE NEGATIVE Urine Nitrite NEGATIVE NEGATIVE Urine Bilirubin NEGATIVE NEGATIVE Urine Urobilinogen 0.2 < = 1.0 MG/DL Urine Leukocyte Esterase NEGATIVE NEGATIVE Urine RBC (Auto) NEGATIVE NEGATIVE Urine RBC NONE /HPF Urine WBC RARE /HPF Urine Squamous Epithelial Cells RARE /HPF Urine Crystals NONE /LPF Urine Bacteria TRACE /HPF Urine Casts NONE /LPF Urine Mucus NEGATIVE /LPF Urine Culture Indicated NO My Orders Orders - JUAN WALLACE MD Cbc With Automated Diff (03/30/23 15:50) Comprehensive Metabolic Panel (03/30/23 15:50) Magnesium (03/30/23 15:50) Ua Culture If Indicated (03/30/23 15:50) Ed Iv/Invasive Line Start (03/30/23 15:50) Fentanyl Inj (Sublimaze Injection) (03/30/23 16:00) Ns Iv 1000 Ml (Sodium Chloride 0.9%) (03/30/23 16:00) Ct Chest/Abdomen/Pelvis Wo (03/30/23 15:57) Manual Differential (03/30/23 15:36) Us Gallbladder [id number] (03/30/23 16:14) Ns Iv 1000 Ml (Sodium Chloride 0.9%) (03/30/23 16:45) Camacho Cath (03/30/23 17:52) Ed Admission (Communication) (03/30/23 18:12) Medications Given in ED Current Medications Medications Dose Ordered Sig/Pat Route Start Time Stop Time Status Last Admin Dose Admin Fentanyl Citrate 50 mcg ONCE ONCE IVP 03/30/23 16:00 03/30/23 16:01 DC 03/30/23 16:05 50 MCG Vital Signs/I&O 03/30/23 15:34 Temp 36.5 Pulse 86 Resp 18 B/P (MAP) 99/54 (69) Pulse Ox 94 O2 Delivery Room Air Capillary Refill : Blood Pressure Mean: 69 Progress Note : Time: 19:21 Progress Note Patient was interviewed and examined during nursing triage at 1536. Fentanyl was administered for pain. Given her extensive recent medical history, CT of the chest, abdomen, and pelvis was obtained. There was expansion of the pulmonary mass with new pulmonary nodules bilaterally. Additionally, there now appears to be numerous metastatic lesions in the liver. Gallbladder has numerous calcified gallstones without evidence of cholecystitis. CT scan was reviewed by me and radiologist's report was reviewed. Labs were reviewed and interpreted by me. CBC was unremarkable. CMP was remarkable for potassium of 6.2, BUN of 89, creatinine of 3.37, and glucose of 151. The remainder of the CMP was relatively unremarkable and other abnormalities were not clinically significant. The BUN and creatinine represent an acute on chronic kidney injury. Urinalysis was unremarkable. Patient was hydrated with 2 L of normal saline in the ER. Gallbladder ultrasound is pending. Camacho catheter was inserted yielding 300 mL of urine immediately suggesting she is still making urine. I discussed the case with Dr. Goldman, hospitalist who is agreeable to admission at our facility since she appears to still be making urine in the context of this exacerbation of renal failure. I also discussed the plan with Dr. Kyle, primary care provider, in a courtesy conversation. I discussed CODE STATUS with the patient. She has difficulty understanding the medical discussions and making decisions. She has deferred to her sister, Ana Lilia, multiple times. I did contact Ana Lilia but she does not want to be a surrogate decision maker for Mariya. She has suggested one of her sons be a power of attorney at law and surrogate decision-maker. She gave me the name of her son, Oscar Mendoza, . I have asked Ana Lilia and Mariya to discuss these issues as a family and report back to the care team. CODE STATUS in the meantime is full code. Gallbladder ultrasound was pending at the time of admission. Diagnostic Imaging Diagonstic Imaging: CT Plain Films/CT/US/NM/MRI: chest, abdomen, pelvis Comments NAME: MARIYA ARMIJO MED REC#: [id number] PT STATUS: REG ER : 1940 PHYSICIAN: JUAN WALLACE MD ADMIT DATE: 03/30/23/ER Signed Date of Exam:03/30/23 CT CHEST/ABDOMEN/PELVIS WO PROCEDURE: CT chest, abdomen, and pelvis without contrast. TECHNIQUE: Multiple contiguous axial images were obtained through the chest, abdomen, and pelvis without the use of intravenous contrast. Auto Exposure Controls were utilized during the CT exam to meet ALARA standards for radiation dose reduction. INDICATION: Right-sided back pain. Lung mass. Right upper quadrant pain. COMPARISON: 02/10/2023. CT chest: The heart size is prominent. No pericardial effusion is present. There is no mediastinal, hilar, or axillary lymphadenopathy. Interval increase in the soft tissue mass within the left upper lobe, with new soft tissue extension into the more anterior aspect of the inferior aspect of the left upper lobe. The mass also extends into the mediastinum. Prominent mediastinal lymph nodes are unchanged. Small discrete micronodules have increased in size in the inferior aspect of the left upper lobe. Trace left-sided pleural effusion is seen. New small nodules are scattered throughout the lungs. No pneumothorax. No acute osseous abnormalities. CT abdomen and pelvis: Metastatic lesions are seen throughout the liver. The gallbladder is mildly distended and filled with gallstones. Stable nodule in the right adrenal gland. The left adrenal gland is unremarkable. There is atrophy of the pancreas. No discrete pancreatic lesion is identified. The spleen is unremarkable. Prominent mesenteric lymph nodes are seen in the flaquita hepatis. The bowel loops are nondilated. The appendix is visualized in the right lower quadrant and has a normal appearance. There is no free fluid or free air. No acute osseous abnormalities. Prior kyphoplasty changes are seen at L4. Chronic height loss is seen at L2 and L5. There is calcified aortic and iliac atherosclerotic plaque without aneurysm. Ureters and bladder are normal. There is no free air, loculated collection, or adenopathy in the pelvis. IMPRESSION: 1. Findings of interval disease progression with increase in size in the dominant mass in the left upper lobe with multiple new pulmonary nodules in both lungs. There is relatively stable mediastinal lymphadenopathy. 2. Additionally, there is metastatic disease throughout the liver. This was not well-seen on the prior exam. 3. Prominent mesenteric lymph nodes in the flaquita hepatis. 4. Atrophy of the pancreas. 5. Cholelithiasis without CT evidence of acute cholecystitis. Dictated by: Dictated on workstation # [id number] Dict: 03/30/23 1620 Trans: 03/30/23 1634 [facility] [id number] Interpreted by: MARIO MOLINA DO Electronically signed by: MARIO MOLINA DO 03/30/23 1634 Departure Communication (Admissions) Time/Spoke to Admitting Phy: 17:41 Dr. Goldman Impression Primary Impression: ROSAS (acute kidney injury) Additional Impressions: Cholelithiasis Qualified Codes: K80.20 - Calculus of gallbladder without cholecystitis without obstruction Metastatic cancer Qualified Codes: C79.9 - Secondary malignant neoplasm of unspecified site Right upper quadrant pain Decubitus ulcer Qualified Codes: L89.302 - Pressure ulcer of unspecified buttock, stage 2 Disposition: ADMITTED INPATIENT Condition: Stable Admissions Decision to Admit Reason: Admit from ER (General) Decision to Admit/Date: Mar 30, 2023 Time/Decision to Admit Time: 17:41 Departure-Patient Inst. Referrals: ELIZABETH KYLE DO (PCP/Family) Primary Care Physician Copy Copies To 1: ELIZABETH KYLE JOSHUA T MD Mar 30, 2023 16:22
--- NOTE | 2023-03-30 16:34 | Diagnostic Imaging Report ---
PROCEDURE: CT chest, abdomen, and pelvis without contrast. TECHNIQUE: Multiple contiguous axial images were obtained through the chest, abdomen, and pelvis without the use of intravenous contrast. Auto Exposure Controls were utilized during the CT exam to meet ALARA standards for radiation dose reduction. INDICATION: Right-sided back pain. Lung mass. Right upper quadrant pain. COMPARISON: 02/10/2023. CT chest: The heart size is prominent. No pericardial effusion is present. There is no mediastinal, hilar, or axillary lymphadenopathy. Interval increase in the soft tissue mass within the left upper lobe, with new soft tissue extension into the more anterior aspect of the inferior aspect of the left upper lobe. The mass also extends into the mediastinum. Prominent mediastinal lymph nodes are unchanged. Small discrete micronodules have increased in size in the inferior aspect of the left upper lobe. Trace left-sided pleural effusion is seen. New small nodules are scattered throughout the lungs. No pneumothorax. No acute osseous abnormalities. CT abdomen and pelvis: Metastatic lesions are seen throughout the liver. The gallbladder is mildly distended and filled with gallstones. Stable nodule in the right adrenal gland. The left adrenal gland is unremarkable. There is atrophy of the pancreas. No discrete pancreatic lesion is identified. The spleen is unremarkable. Prominent mesenteric lymph nodes are seen in the flaquita hepatis. The bowel loops are nondilated. The appendix is visualized in the right lower quadrant and has a normal appearance. There is no free fluid or free air. No acute osseous abnormalities. Prior kyphoplasty changes are seen at L4. Chronic height loss is seen at L2 and L5. There is calcified aortic and iliac atherosclerotic plaque without aneurysm. Ureters and bladder are normal. There is no free air, loculated collection, or adenopathy in the pelvis. IMPRESSION: 1. Findings of interval disease progression with increase in size in the dominant mass in the left upper lobe with multiple new pulmonary nodules in both lungs. There is relatively stable mediastinal lymphadenopathy. 2. Additionally, there is metastatic disease throughout the liver. This was not well-seen on the prior exam. 3. Prominent mesenteric lymph nodes in the flaquita hepatis. 4. Atrophy of the pancreas. 5. Cholelithiasis without CT evidence of acute cholecystitis. Dictated by: Dictated on workstation # [id number]
[2023-03-30 18:17] LABS: BILIRUBIN,URINE NEGATIVE (NEGATIVE); CLARITY,URINE CLEAR; COLOR,URINE YELLOW; GLUCOSE, URINE (UA) 2+ (NEGATIVE); KETONES,URINE NEGATIVE (NEGATIVE); LEUKOCYTE ESTERASE ,URINE NEGATIVE (NEGATIVE); NITRITE,URINE NEGATIVE (NEGATIVE); PROTEIN,URINE NEGATIVE (NEGATIVE)
[2023-03-30 18:25] VITALS: BP 108/68
[2023-03-30 18:25] LABS: BACTERIA,URINE TRACE /HPF; SQUAMOUS EPITHELIAL CELL,UR RARE /HPF; WBC,URINE RARE /HPF
[2023-03-30] MEDS ORDERED: BISACODYL 10 MG SUPPOSITORY PR PRN (18:45)
[2023-03-30] MEDS ORDERED: CALCIUM CARBONATE 500 MG CHEW TABLET PO PRN (18:45)
[2023-03-30] MEDS ORDERED: MELATONIN 3 MG TABLET PO PRN (18:45)
[2023-03-30] MEDS ORDERED: MILK OF MAGNESIA 400 MG/5 ML 30 ML UDC PO PRN (18:45)
[2023-03-30] MEDS ORDERED: ANTACID SUSP 30 ML UDC (MYLANTA) PO PRN (18:45)
[2023-03-30] MEDS ORDERED: ONDANSETRON 4 MG/2 ML (SDV) Z0FRAN IV PRN (18:45)
[2023-03-30] MEDS ORDERED: polyethylene glycoL POWDER 17 GM (MIRALAX) PACK PO PRN (18:45)
[2023-03-30 19:31] VITALS: BP 98/49
[2023-03-30] MEDS ORDERED: NS IV 1000 ML 1,000 ML ONE (19:34)
[2023-03-30] MEDS ORDERED: fentaNYL INJ 100 MCG/2 ML AMP ONE (19:43)
[2023-03-30] MEDS: NS IV 1000 ML 1,000 ML IV SCH (19:46)
[2023-03-30] MEDS: fentaNYL INJ 100 MCG/2 ML AMP IVP PRN (19:46)
[2023-03-30] MEDS: inSUlin ASPART (NovoLOG) 1 UNIT/0.01 ML (CHARGE PER UNIT) SC SCH (21:01)
[2023-03-30] MEDS ORDERED: RT-ALBUTEROL SULF 2.5 MG/3 ML PRE-MIX VIAL INH SCH (21:15)
--- NOTE | 2023-03-30 21:57 | Diagnostic Imaging Report ---
PROCEDURE: US Gallbladder. TECHNIQUE: Multiple real-time grayscale images were obtained over the right upper quadrant in various projections. INDICATION: Right upper quadrant pain, gallstones COMPARISON: CT from 03/30/2023 FINDINGS: Suboptimal exam due to patient motion, positioning and body habitus. The pancreas is not well seen, likely due to bowel gas as well as atrophy of the pancreas seen on the prior CT. Imaged portions of the aorta and IVC demonstrate no acute abnormality. The liver demonstrates innumerable lesions throughout the entire liver, likely metastatic disease. There is no biliary dilatation. Echogenicity otherwise appears normal. The common bile duct is mildly large measuring 7 mm. The gallbladder wall is not thickened. There are multiple shadowing stones in the gallbladder with some sludge. Sonographic Morales sign is negative. No free fluid is seen. The right kidney measures 9.9 cm in length. There is no hydronephrosis. IMPRESSION: 1. Innumerable hypoechoic lesions throughout the liver, concerning for metastatic disease. 2. Cholelithiasis. No other findings of cholecystitis. 3. Mildly prominent common bile duct, choledocholithiasis is not excluded. Dictated by: Dictated on workstation # [id number]
[2023-03-30] MEDS ORDERED: RT-ALBUTEROL/IPRATROPIUM 3 ML (DUONEB) VIAL INH SCH (22:00)
[2023-03-30] MEDS ORDERED: RT-ALBUTEROL SULF 2.5 MG/3 ML PRE-MIX VIAL INH PRN (22:45)
[2023-03-31] VITALS (7 sets, daily range): BP systolic 92–120; BP diastolic 55–68
[2023-03-31] MEDS: fentaNYL INJ 100 MCG/2 ML AMP IVP PRN ×3 (00:25→09:29)
[2023-03-31] MEDS: NS IV 1000 ML 1,000 ML IV SCH ×2 (05:07→14:28)
[2023-03-31 05:42] LABS: HEMATOCRIT 37 % (35-52); HEMOGLOBIN 11.3 g/dL (11.5-16.0); MEAN CORPUSCULAR HEMOGLOBIN 29 pg (25-34); MEAN CORPUSCULAR HGB CONC 31 g/dL (32-36); MEAN CORPUSCULAR VOLUME 93 fL (80-99); MEAN PLATELET VOLUME 12.2 fL (9.0-12.2); PLATELET COUNT 222 10^3/uL (130-400); WHITE BLOOD COUNT 10.2 10^3/uL (4.3-11.0)
[2023-03-31 05:51] LABS: CALCIUM 8.2 MG/DL (8.5-10.1)
[2023-03-31 05:56] LABS: CREATININE SERUM 2.78 MG/DL (0.60-1.30)
[2023-03-31] MEDS: inSUlin ASPART (NovoLOG) 1 UNIT/0.01 ML (CHARGE PER UNIT) SC SCH ×4 (06:28→21:01)
[2023-03-31] MEDS: RT-ALBUTEROL/IPRATROPIUM 3 ML (DUONEB) VIAL INH SCH ×4 (07:05→18:57)
[2023-03-31] MEDS: HYDROcodone/ACETAMINOPHEN 5 MG/325 MG TABLET PO PRN (09:35)
--- NOTE | 2023-03-31 09:58 | Physical Therapy Progress Note ---
Therapy Progress Note Attempted x 2 to assess patient. Patient has received oral and IV pain medication. Patient did state she is anticipating back patient with any movement. PT attempted to elevated HOB with patient immediately yelling in pain. PT ceased continued treatment. Will attempt later today or tomorrow. RUDDY VARGAS PT Mar 31, 2023 09:58
--- NOTE | 2023-03-31 10:48 | History & Physical-Hospitalist ---
FLORIDA MARINELLI 03/31/23 1048: History of Present Illness HPI/Chief Complaint Colleen Montoya is an 82 y F with a history of HTN, Afib, COPD, CKD and insulin dependent Type-II diabetes who was brought to the ED by EMS yesterday with complaints of severe right lower and middle back pain impairing walking. She stated that her pain began earlier that day and denied a precipitating fall. She additionally denied N/V/D and fever. The patient was hospitalized in 01/2023 for a UTI causing severe sepsis and was found to have a pulmonary lung mass, cholelithiasis, poorly controlled DM with an a1C of 13.4, and renal insufficiency. The patient reports she underwent lung biopsy by Dr. Berman. CTA of the chest, abdomen and pelvis was ordered by the ED provider. CT demonstrated and increasing pulmonary mass compared to prior impression, new metastatic liver disease, and cholilithiasis without acute cholecystitis. Labwork was significant for potassium of 6.2, creatinine of 3.37, GFR of 13, BUN of 89, bicarbonate of 18, and anion-gap of 16. WBC was in normal ranges, glucose was ~150, and UA was negative for UTI. She was admitted to [facility] for management of acute on chronic kidney injury. During today's assessment, she is tearful and anxious, complaining of significant, unchanged lower back pain. She states it is worst whenever she makes slight movement in bed. Though she denied a recent fall today to the ED provider, today she says she may have had a fall down her stairs sometime this weekend. She believes she underwent a lung biopsy this weekend but is unsure of the date. She denies N/VD, SOB or chest pain. She can accurately identify her name, today's date, and her location, but seems confused when asked other questions about her recent medical history/current symptoms. She states that her sister, Ana Lilia, may be returning to the hospital soon and would be able to provide more information. She lives by herself at [facility] Source: patient Date Seen 03/31/23 Attending Physician Nilton Kyle DO PCP Admitting Physician: Opal Goldman MD Attending Physician: Opal Goldman MD Referring Physician Date of Admission Mar 30, 2023 at 18:15 Home Medications & Allergies Home Medications Reviewed patient Home Medication Reconciliation performed by pharmacy medication reconciliations electrical instrument technician and/or nursing. Patients Allergies have been reviewed. Allergies Allergies Coded Allergies NKANo Known Allergies (Verified Allergy, Unknown, 03/26/06) Past Ejjvxuv-Undcdi-Cbagsp Hx Patient Social History Tobacco Use?: No Smoking Status: Former Smoker Use of E-Cig and/or Vaping dev: No Substance use?: No Alcohol Use?: No Pt feels they are or have been: No Immunizations Up To Date Date of Influenza Vaccine: May 28, 2018 First/Initial COVID19 Vaccinat: 02/19 Second COVID19 Vaccination Maycol: 02/19 Tetanus Booster (TDap): Unknown PED Vaccines UTD: No Date of Pneumonia Vaccine: Jul 19, 2011 Seasonal Allergies Seasonal Allergies: No Current Status status: No Communicates: Verbally Primary Language: Urdu Preferred Spoken Language: Urdu Implanted or Applied Medical D: None Past Medical History Surgeries: Cardiac, Coronary Stent, Orthopedic COPD Currently Using CPAP: No Currently Using BIPAP: No Atrial Fibrillation, Cardiomyopathy, Chronic Edema/Swelling, Coronary Artery Disease, Heart Attack, High Cholesterol, Hypertension, Irregular Heartbeat Dementia, Neuropathy WAITER/WAITRESS History: Menopausal Sexually Transmitted Disease: No HIV/AIDS: No Renal Failure (Chronic kidney disease) Gastroesophageal Reflux, Gastrointestinal Bleed Arthritis, Chronic Back Pain Diabetes, Non-Insulin dep Cataract Loss of Vision: Denies Hearing Impairment: Denies Depression Blood Disorders: Yes (anemia) Adverse Reaction/Blood Tranf: No Family Medical History Cardiovascular disease 19 FATHER 19 MOTHER FH: stroke FHx: diabetes mellitus Heart Disease, Diabetes, Hypertension 01/2019--EGD 04/2020--STRESS TEST. Review of Systems Respiratory: No short of breath Cardiovascular: No chest pain Gastrointestinal: No diarrhea, No nausea, No vomiting Genitourinary: No dysuria Musculoskeletal: back pain (lower back, R>L) Physical Exam Physical Exam Vital Signs Vital Signs - First Documented 03/30/23 03/30/23 15:34 18:25 Temp 36.5 Pulse 86 Resp 18 B/P (MAP) 99/54 (69) Pulse Ox 94 O2 Delivery Room Air O2 Flow Rate 2.00 Capillary Refill : Height, Weight, BMI Height: 5'1.50" Weight: 191lbs. 8.0oz. [id number]; 33.66 BMI Method:Stated General Appearance: Anxious, Mild Distress HEENT: PERRL/EOMI Neck: Non Tender, Supple Respiratory: Lungs Clear Cardiovascular: Regular Rate, Rhythm Gastrointestinal: Normal Bowel Sounds, Non Tender Back: CVA Tenderness (R), Vertebral Tenderness Neurologic/Psychiatric: Alert, Oriented x3 Skin: Normal Color, Warm/Dry Results Results/Procedures Labs Laboratory Tests 03/30/23 15:36 03/31/23 05:14 Patient resulted labs reviewed. Assessment/Plan Assessment and Plan Acute on chronic kidney injury Metabolic acidosis Hyperkalemia Metabolic acidosis - Hyperkalemia resolved at this time; monitor - Creatinine trending down (2.78 today, 3.37 on admission) - Dialysis not warranted per normal electrolytes, improving renal function and urine output - Continue IV fluids Metastatic lung malignancy - Pulmonary mass (left upper lobe) first noted on 02/10 CT during prior admission - 03/30 CT showing increased mass size, new micronodules, and new metastatic liver lesions Back pain - 03/30 CT negative for acute osseus abnormalities - Continue Fentanyl 100 mcg as needed - Continue Morphine 2mg IVP q2h as needed - Continue Hydrocodone 5/235 as needed DM - Insulin aspart sliding scale "A" Cholilithiasis without acute cholecystitis Liberalize pain control per patient's metastatic disease. Will proceed with a more definitive plan once patient's durable power of graphic design manager is established and in communication. OPAL GOLDMAN MD 03/31/23 1220: History of Present Illness Time Seen by a Provider: 11:30 Past Oqpyqcm-Lwtbpo-Chyvfz Hx Family Medical History Cardiovascular disease 19 FATHER 19 MOTHER FH: stroke FHx: diabetes mellitus Review of Systems Constitutional: see HPI Assessment/Plan Admission Diagnosis ROSAS intractable back pain Admission Status: Inpatient Order (span 2 midnights) Reason for Inpatient Admission: see below Assessment and Plan Patient admitted with intractable back pain and ROSAS. Has baseline CKD and acute worsening with hyperkalemia today. She also is undergoing outpatient workup for lung mass and today has evidence of widely metastatic disease on imaging. She was admitted for hydration and pain control. Creatinine has improved today but is not back to baseline. She still complains of very severe back pain. She was reluctant to move at all but did not have any pain medication for ~6 hours. Discussed with her the need to move and allow up to treat her pain to facilitate that. PT/OT ordered. Switch to morphine as patient reports fentanyl is not he lping her pain. I called and spoke with her son Oscar at her request. Updated him on current admission, lab and imaging findings, and next steps going forward. He expressed concern about her ability to go home and there is not much family support. Interested in SNF placement. SW consulted. Supervisory-Addendum Brief Verification & Attestation Participated in pt care: history, MDM, physical Personally performed: exam, history, MDM, supervision of care Care discussed with: Medical Student Procedures: n/a Results interpretation: Verified all documentation Verification and Attestation of Medical Student E/M Service A medical student performed and documented this service in my presence. I reviewed and verified all information documented by the medical student and made modifications to such information, when appropriate. I personally performed the physical exam and medical decision making. Opal Goldman, Mar 31, 2023,12:20 FLOR[place] MARINELLI Mar 31, 2023 10:48 OPAL GOLDMAN MD Mar 31, 2023 12:20
[2023-03-31] MEDS: morphine INJ 4 MG/ML 1 ML (VIAL/SYRINGE) IVP PRN (12:00)
[2023-03-31] MEDS ORDERED: INSU100I14 SQ ×2 (13:30)
[2023-03-31] MEDS ORDERED: INSU100I88 SQ (13:30)
[2023-03-31] MEDS ORDERED: FAMO20TA5 PO (13:30)
--- NOTE | 2023-03-31 14:14 | Physical Therapy Evaluation ---
PT Evaluation-General Medical Diagnosis Admission Date Mar 30, 2023 at 18:15 Medical Diagnosis: acute kidney injury Onset Date: Mar 30, 2023 Therapy Diagnosis Therapy Diagnosis: generalized weakness/debility Height/Weight Height (Feet): 5 Height (Inches): 1.50 Weight (Pounds): 191 Weight (Ounces): 8.0 Precautions Precautions/Isolations: Standard Precautions Referral Physician: Jones Reason for Referral: Evaluation/Treatment Medical History Pertinent Medical History: Atrial Fib, Arthritis, CVA, DM, Heart Failure, HTN, [place], Neuropathy Current History EMS secondary to back pain Reviewed History: Yes Social History Home: Apartment Prior Prior Level of Function SCALE: Activities may be completed with or without assistive devices. 3-Hzmhhcavrh-gkjcwsf completes the activity by him/herself with no assistance from a helper. 5-Set-up or Clean-up Assistance-helper sets up or cleans up; patient completes activity. [place] assists only prior to or following the activity. 4-Supervision or Touching Assistance-helper provides verbal cues and/or touching/steadying and/or contact guard assistance as patient completes activity. Assistance may be provided throughout the activity or intermittently. 3-Partial/Moderate Assistance-helper does LESS THAN HALF the effort. [place] lifts, holds or supports trunk or limbs, but provides less than half the effort. 2-Substantial/Maximal Assistance-helper does MORE THAN HALF the effort. [place] lifts or holds trunk or limbs and provides more than half the effort. 3-Ovmhjuvxw-aveiyv does ALL the effort. Patient does none of the effort to complete the activity. Or, the assistance of 2 or more helpers is required for the patient to complete the activity. If activity was not attempted, code reason: 7-Patient Refused. 9-Not Applicable-not attempted and the patient did not perform the activity before the current illness, exacerbation or injury. 10-Not Attempted due to Environmental Limitations-(lack of equipment, weather restraints, etc.). 88-Not Attempted due to Medical Conditions or Safety Concerns. Bed Mobility: 6 Transfers (B,C,W/C): 6 Gait: 6 Indoor Mobility (Ambulation): Independent Prior Devices Use: Walker PT Evaluation-Current Subjective Patient reports her back pain is better. Agrees to therapy Pain Numeric Pain Scale: 5-Moderate Pain Location: Left, Lower Location Body Site: Back Pain Description: Acute Objective Patient Orientation: Normal For Age Attachments: Oxygen, Camacho Catheter, IV ROM/Strength ROM Lower Extremities bilateral LE WFL Strength Lower Extremities 3-/5 grossly bilateral LE all planes Integumentary/Posture Bladder Incontinence: Camacho Cath Neuromuscular (Tone, Coordination, Reflexes) grossly intact Sensory Vision: Functional Hearing: Functional Transfers Sit to Lying (QC): 3 Lying to Sitting/Side of Bed(Q: 3 Sit to Stand (QC): 7 Gait Does the Patient Walk?: No and Walking Goal IS indicated Balance Sitting Static: Fair Sitting Dynamic: Fair Assessment/Needs Patient adamantly declined to attempt stand to FWW on this date due to increase c/o back pain in seated position. Patient will benefit from skilled PT to address functional strength and mobility to improve current LOF to safely return to home at maximum LOF. Rehab Potential: Guarded PT Public Health Sanitarian Goals Public Health Sanitarian Goals PT Public Health Sanitarian Goals Time Frame: Apr 12, 2023 Roll Left & Right (QC): 4 Sit to Lying (QC): 4 Lying-Sitting on Side/Bed(QC): 4 Sit to Stand (QC): 4 Chair/Ulm-wl-Bpsam Xfer(QC): 4 Toilet Transfer (QC): 4 Walk 10 feet (QC): 4 Walk 50ft with 2 Turns (QC): 4 Walk 150 ft (QC): 4 PT Plan Problem List Problem List: Activity Tolerance, Functional Strength, Safety, Balance, Gait, Transfer, Bed Mobility Treatment/Plan Treatment Plan: Continue Plan of Care Treatment Plan: Bed Mobility, Education, Functional Activity Edward, Functional Strength, Gait, Safety, Therapeutic Exercise, Transfers Treatment Duration: Apr 12, 2023 Frequency: 5 times per week Estimated Hrs Per Day: .25 hour per day Patient and/or Family Agrees t: Yes Time Time In: 1350 Time Out: 1405 DATE: Mar 31, 2023 Total Billed Treatment Time: 15 [facility] RUDDY VARGAS PT Mar 31, 2023 14:14
--- NOTE | 2023-03-31 14:47 | Occupational Therapy Eval ---
OT Evaluation-General/PLF Medical Diagnosis Admission Date Mar 30, 2023 at 18:15 Medical Diagnosis: acute kidney injury Onset Date: Mar 30, 2023 Therapy Diagnosis Therapy Diagnosis: debility/pain Height/Weight Height (Feet): 5 Height (Inches): 1.50 Weight (Pounds): 191 Weight (Ounces): 8.0 Precautions Precautions/Isolations: Fall Prevention, Standard Precautions Weight Bear Status no WB concerns, patient refused to stand. Referral Physician: Jones Medical History Pertinent Medical History: Atrial Fib, Arthritis, CVA, DM, Heart Failure, HTN, [place], Neuropathy Social History Home: Apartment Current Living Status: Alone Entry Into Home: Level Entry sister lives a few doors down ADL-Prior Level of Function SCALE: Activities may be completed with or without assistive devices. 2-Pkqcuvfrhr-qivbzqa completes the activity by him/herself with no assistance from a helper. 5-Set-up or Clean-up Assistance-helper sets up or cleans up; patient completes activity. [place] assists only prior to or following the activity. 4-Supervision or Touching Assistance-helper provides verbal cues and/or touching/steadying and/or contact guard assistance as patient completes activity. Assistance may be provided throughout the activity or intermittently. 3-Partial/Moderate Assistance-helper does LESS THAN HALF the effort. [place] lifts, holds or supports trunk or limbs, but provides less than half the effort. 2-Substantial/Maximal Assistance-helper does MORE THAN HALF the effort. [place] lifts or holds trunk or limbs and provides more than half the effort. 3-Judpbfvja-xeimuh does ALL the effort. Patient does none of the effort to complete the activity. Or, the assistance of 2 or more helpers is required for the patient to complete the activity. If activity was not attempted, code reason: 7-Patient Refused. 9-Not Applicable-not attempted and the patient did not perform the activity before the current illness, exacerbation or injury. 10-Not Attempted due to Environmental Limitations-(lack of equipment, weather restraints, etc.). 88-Not Attempted due to Medical Conditions or Safety Concerns. Self Care: Independent Functional Cognition: Independent Drive Self: No OT Current Status Subjective OT returned from earlier attempt, patient had been in too much esposito, pain has decreased and patient is agreeable to sit EOB Pain Numeric Pain Scale: 4 Comment: morphine has reduced pain level Mental Status/Objective Patient Orientation: Person, Place, Situation Attachments: Camacho Catheter, IV, Oxygen, SCD's Current Glasses/Contacts: Yes Hearing Aids: No Dentures/Partials: No Hand Dominance: Right Upper Extremity ROM limited by back pain Upper Extremity Strength -3/5 ADL-Treatment ADL-Current RN notified on mottling skin on back Eating (QC): 5 Oral Hygiene (QC): 4 Shower/Bathe Self (QC): 7 Upper Body Dressing (QC): 7 Lower Body Dressing (QC): 1 On/Off Footwear (QC): 1 Toileting Hygiene (QC): 1 Education OT Patient Education: Correct positioning, Exercise program, Modified ADL techniques, Progress toward Goal/Update tx plan, Purpose of tx/functional activities, Reviewed precautions, Rehab process, Safety issues Teaching Recipient: Patient Teaching Methods: Demonstration, Discussion Response to Teaching: Reinforcement Needed OT Machine Ii Coremaker Goals Machine Ii Coremaker Goals Time Frame: Apr 04, 2023 Oral Hygiene (QC): 5 (sitting) Toileting Hygiene (QC): 4 Shower/Bathe Self (QC): 3 Upper Body Dressing (QC): 4 Lower Body Dressing (QC): 4 On/Off Footwear (QC): 4 1=Demonstrate adherence to instructed precautions during ADL tasks. 2=Patient will verbalize/demonstrate understanding of assistive devices/modifications for ADL. 3=Patient will improve strength/tolerance for activity to enable patient to perform ADL's. OT Education/Plan Problem List/Assessment Assessment: Decreased Activ Tolerance, Decreased Safety Aware, Decreased UE Strength, Impaired Bed Mobility, Impaired Cognition, Impaired Coordination, Impaired Funct Balance, Impaired Self-Care Skills, Restricted Funct UE ROM Discharge Recommendations Plan/Recommendations: Continue POC Therapy Discharge Recommendati: Post Acute OT Treatment Plan/Plan of Care Treatment,Training & Education: Yes Patient would benefit from OT for education, treatment and training to promote independence in ADL's, mobility, safety and/or upper extremity function for ADL's. Plan of Care: ADL Retraining, Concurrent Therapy, Functional Mobility, Group Exercise/Act as Ind, UE Funct Exercise/Act, UE Neuromus Re-Ed/Coord Treatment Duration: Apr 04, 2023 Frequency: 3 times per week (3-5 times per week) Estimated Hrs Per Day: .25 hour per day Agreement: Yes Rehab Potential: Guarded Time Start Time: 13:00 Stop Time: 13:15 DATE: Mar 31, 2023 Total Time Billed (hr/min): 15 Billed Treatment Time EVM 15 SEBASTIAN GAN OT Mar 31, 2023 14:47
[2023-04-01] MEDS: NS IV 1000 ML 1,000 ML IV SCH ×2 (00:31→11:21)
[2023-04-01 03:21] VITALS: BP 119/67
[2023-04-01] MEDS: morphine INJ 4 MG/ML 1 ML (VIAL/SYRINGE) IVP PRN ×2 (03:58→10:07)
[2023-04-01] MEDS: inSUlin ASPART (NovoLOG) 1 UNIT/0.01 ML (CHARGE PER UNIT) SC SCH ×4 (05:15→20:11)
[2023-04-01 05:21] LABS: HEMATOCRIT 37 % (35-52); HEMOGLOBIN 11.7 g/dL (11.5-16.0); MEAN CORPUSCULAR HEMOGLOBIN 29 pg (25-34); MEAN CORPUSCULAR HGB CONC 31 g/dL (32-36); MEAN CORPUSCULAR VOLUME 94 fL (80-99); MEAN PLATELET VOLUME 11.6 fL (9.0-12.2); PLATELET COUNT 216 10^3/uL (130-400); WHITE BLOOD COUNT 9.9 10^3/uL (4.3-11.0)
[2023-04-01 06:34] LABS: POTASSIUM 4.3 MMOL/L (3.6-5.0)
[2023-04-01 06:35] LABS: CALCIUM 8.4 MG/DL (8.5-10.1)
[2023-04-01 06:40] LABS: CREATININE SERUM 2.31 MG/DL (0.60-1.30)
[2023-04-01] MEDS: RT-ALBUTEROL/IPRATROPIUM 3 ML (DUONEB) VIAL INH SCH ×4 (06:40→18:47)
[2023-04-01 07:49] VITALS: BP 106/71
[2023-04-01] MEDS: HYDROcodone/ACETAMINOPHEN 5 MG/325 MG TABLET PO PRN ×2 (08:36→21:29)
[2023-04-01] MEDS: ASPIRIN enteric coated 81MG TABLET PO SCH (08:36)
[2023-04-01] MEDS: FAMOTIDINE 20 MG TABLET PO SCH (08:36)
[2023-04-01] MEDS: VITAMIN D3 25 MCG (1,000 UNITS) TABLET PO SCH (08:36)
[2023-04-01] MEDS ORDERED: OMEGA-3 ACID ETHYL ESTERS 1 GM (LOVAZA) NON-FORMULARY PO SCH (09:00)
[2023-04-01] MEDS: OMEGA 3 (FISH OIL) 1000 MG CAP PO SCH (09:17)
--- NOTE | 2023-04-01 10:38 | Physical Therapy Progress Note ---
Therapy Progress Note Patient has received oral and IV pain medication and continues to declined PT and became very tearful. RN is aware. RUDDY VARGAS PT Apr 01, 2023 10:38
[2023-04-01 11:37] VITALS: BP 126/80
--- NOTE | 2023-04-01 13:10 | Occupational Ther Daily Note ---
OT Current Status-Daily Note Subjective Agrees for repositioning and offloading Pain Numeric Pain Scale: 7 Mental Status/Objective Patient Orientation: Person Attachments: Camacho Catheter ADL-Treatment Initially OT sustained hip flexion degreed of angle while raising FOB and lowering HOB,. Avi assisted in pushing BLEs against OT hands and use of her own hands on bedrails and assist of one to pull on sheet. Patient education provided to use remote and raise HOB to 45-50 degree angle to continue w. PO intake Therapy Code Descriptions/Definitions Functional [place] Measure: 0=Not Assessed/NA 4=Minimal Assistance 1=Total Assistance 5=Supervision or Setup 2=Maximal Assistance 6=Modified [place] 3=Moderate Assistance 7=Complete IndependenceSCALE: Activities may be completed with or without assistive devices. 8-Umhdunepvd-cklksuj completes the activity by him/herself with no assistance from a helper. 5-Set-up or Clean-up Assistance-helper sets up or cleans up; patient completes activity. [place] assists only prior to or following the activity. 4-Supervision or Touching Assistance-helper provides verbal cues and/or touchi ng/steadying and/or contact guard assistance as patient completes activity. Assistance may be provided throughout the activity or intermittently. 3-Partial/Moderate Assistance-helper does LESS THAN HALF the effort. [place] lifts, holds or supports trunk or limbs, but provides less than half the effort. 2-Substantial/Maximal Assistance-helper does MORE THAN HALF the effort. [place] lifts or holds trunk or limbs and provides more than half the effort. 4-Dwbjmcbau-xgfxii does ALL the effort. Patient does none of the effort to complete the activity. Or, the assistance of 2 or more helpers is required for the patient to complete the activity. If activity was not attempted, code reason: 7-Patient Refused. 9-Not Applicable-not attempted and the patient did not perform the activity before the current illness, exacerbation or injury. 10-Not Attempted due to Environmental Limitations-(lack of equipment, weather restraints, etc.). 88-Not Attempted due to Medical Conditions or Safety Concerns. Eating (QC): 5 Oral Hygiene (QC): 5 refuses all other ADLs, refuses sitting EOB or transfers Education OT Patient Education: Correct positioning, Modified ADL techniques, Progress toward Goal/Update tx plan, Purpose of tx/functional activities, Reviewed precautions, Rehab process, Safety issues Teaching Recipient: Patient Teaching Methods: Demonstration, Discussion Response to Teaching: Reinforcement Needed OT Truss Assembler Goals Truss Assembler Goals Time Frame: Apr 04, 2023 Oral Hygiene (QC): 5 (sitting) Toileting Hygiene (QC): 4 Shower/Bathe Self (QC): 3 Upper Body Dressing (QC): 4 Lower Body Dressing (QC): 4 On/Off Footwear (QC): 4 1=Demonstrate adherence to instructed precautions during ADL tasks. 2=Patient will verbalize/demonstrate understanding of assistive devices/modifications for ADL. 3=Patient will improve strength/tolerance for activity to enable patient to perform ADL's. OT Education/Plan Problem List/Assessment Assessment: Decreased Activ Tolerance, Dependent Transfers, Impaired Cognition, Impaired Coordination, Impaired Funct Balance, Impaired Self-Care Skills Discharge Recommendations Plan/Recommendations: Continue POC Treatment Plan/Plan of Care Treatment,Training & Education: Yes Patient would benefit from OT for education, treatment and training to promote independence in ADL's, mobility, safety and/or upper extremity function for ADL's. Plan of Care: ADL Retraining, Concurrent Therapy, Functional Mobility, Group Exercise/Act as Ind, UE Funct Exercise/Act, UE Neuromus Re-Ed/Coord Treatment Duration: Apr 04, 2023 Frequency: 3 times per week (3-5 times per week) Estimated Hrs Per Day: .25 hour per day Agreement: Yes Rehab Potential: Guarded Time Start Time: 15:50 Stop Time: 13:01 DATE: Apr 01, 2023 Total Time Billed (hr/min): 11 Billed Treatment Time ADL 11 SEBASTIAN GAN OT Apr 01, 2023 13:10
[2023-04-01 15:32] VITALS: BP 116/71
[2023-04-01 19:02] VITALS: BP 119/79
--- NOTE | 2023-04-01 19:10 | Progress Note - Hospitalist ---
Subjective HPI/CC On Admission Date Seen by Provider: Apr 01, 2023 Time Seen by Provider: 11:00 Subjective/Events-last exam She is still having back pain. She has not been able to get out of bed. She has not had much of an appetite. Objective Exam Vital Signs Vital Signs Date Time Temp Pulse Resp B/P (MAP) Pulse Ox O2 Delivery O2 Flow Rate FiO2 04/01/23 19:02 36.3 92 18 119/79 (92) 97 Nasal Cannula 2.00 Capillary Refill : General Appearance: No Apparent Distress, Obese Respiratory: Lungs Clear, No Respiratory Distress Cardiovascular: Regular Rate, Rhythm, No Murmur Gastrointestinal: Normal Bowel Sounds, Soft Extremity: Normal Inspection, No Pedal Edema Neurologic/Psychiatric: Alert, Motor Weakness Skin: Normal Color, Warm/Dry Results/Procedures Lab Laboratory Tests 04/01/23 05:10 Patient resulted labs reviewed. Assessment/Plan Assessment and Plan Assess & Plan/Chief Complaint ROSAS on CKD Improving Decrease IV fluids Metastatic lung cancer to the liver Not yet started on treatment Following with Drs. Taylor Early and Andrade Back pain CT without acute abnormalities Add Fentanyl patch Increase Hydrocodone T2DM Sliding scale insulin Cholilithiasis without acute cholecystitis Obesity No acute management needs Debility PT/OT Will likely need SNF placement on discharge SW assisting with placement DVT prophylaxis: Lovenox Diagnosis/Problems Diagnosis/Problems (1) Acute kidney injury superimposed on chronic kidney disease Status: Acute (2) CKD (chronic kidney disease) stage 4, GFR 15-29 ml/min Status: Chronic (3) Metastatic lung cancer (metastasis from lung to other site) Status: Chronic (4) Metastasis to liver Status: Acute (5) Pain of metastatic malignancy Status: Acute (6) Back pain Status: Acute (7) Obesity Status: Chronic (8) Debility Status: Acute CALLI DUNN MD Apr 01, 2023 19:10
[2023-04-01] MEDS: fentaNYL INJ 100 MCG/2 ML AMP IVP PRN (19:16)
[2023-04-01] MEDS ORDERED: ENOXAPARIN 30 MG/0.3 ML SYRINGE SC SCH (21:00)
[2023-04-01] MEDS ORDERED: GABAPENTIN 300 MG (NEURONTIN) CAP PO SCH (21:00)
[2023-04-01] MEDS ORDERED: PANTOPRAZOLE 40 MG (PROTONIX) TAB PO SCH (21:00)
[2023-04-02] MEDS: NS IV 1000 ML 1,000 ML IV SCH (00:04)
[2023-04-02 00:05] VITALS: BP 108/67
[2023-04-02 03:37] VITALS: BP 107/74
[2023-04-02 06:04] LABS: HEMATOCRIT 38 % (35-52); HEMOGLOBIN 11.7 g/dL (11.5-16.0); MEAN CORPUSCULAR HEMOGLOBIN 29 pg (25-34); MEAN CORPUSCULAR HGB CONC 31 g/dL (32-36); MEAN CORPUSCULAR VOLUME 94 fL (80-99); MEAN PLATELET VOLUME 11.9 fL (9.0-12.2); PLATELET COUNT 227 10^3/uL (130-400); WHITE BLOOD COUNT 9.3 10^3/uL (4.3-11.0)
[2023-04-02 06:17] LABS: POTASSIUM 4.6 MMOL/L (3.6-5.0)
[2023-04-02 06:18] LABS: CALCIUM 8.9 MG/DL (8.5-10.1)
[2023-04-02] MEDS: inSUlin ASPART (NovoLOG) 1 UNIT/0.01 ML (CHARGE PER UNIT) SC SCH ×2 (06:21→11:38)
[2023-04-02 06:23] LABS: CREATININE SERUM 1.98 MG/DL (0.60-1.30)
[2023-04-02] MEDS: RT-ALBUTEROL/IPRATROPIUM 3 ML (DUONEB) VIAL INH SCH (06:53)
[2023-04-02 07:46] VITALS: BP 107/69
[2023-04-02] MEDS: ASPIRIN enteric coated 81MG TABLET PO SCH (08:51)
[2023-04-02] MEDS: VITAMIN D3 25 MCG (1,000 UNITS) TABLET PO SCH (08:51)
[2023-04-02] MEDS: FAMOTIDINE 20 MG TABLET PO SCH (08:51)
[2023-04-02] MEDS: OMEGA 3 (FISH OIL) 1000 MG CAP PO SCH (08:51)
[2023-04-02] MEDS: HYDROcodone/ACETAMINOPHEN 5 MG/325 MG TABLET PO PRN (08:52)
[2023-04-02 10:53] VITALS: BP 107/69
[2023-04-02 11:40] VITALS: BP 106/71
[2023-04-02] MEDS ORDERED: POTA-185 PO (12:57)
[2023-04-02] MEDS ORDERED: INSU100I88 SQ (12:57)
[2023-04-02] MEDS ORDERED: PANT40TA52 PO (12:57)
[2023-04-02] MEDS ORDERED: INSU100I14 SQ (12:57)
[2023-04-02] MEDS ORDERED: LOVA10TA PO (12:57)
[2023-04-02] MEDS ORDERED: FURO40TA4 PO (12:57)
[2023-04-02] MEDS ORDERED: CHOL100048 PO (12:57)
[2023-04-02] MEDS ORDERED: ASPI-1238 PO (12:57)
[2023-04-02] MEDS ORDERED: FENT1PAT8 TD (12:57)
[2023-04-02] MEDS ORDERED: GABA300C PO (12:57)
[2023-04-02] MEDS ORDERED: ACHD5005 PO (12:57)
[2023-04-02] MEDS ORDERED: DAPA5TAB PO (12:57)
[2023-04-02] MEDS ORDERED: FAMO20TA5 PO (12:57)
[2023-04-02] MEDS ORDERED: OMEG-218 PO (12:57)
--- NOTE | 2023-04-02 13:01 | Discharge Inst-Skilled Nursing ---
Discharge Inst-Skilled NF Consult/Follow Up/Orders Follow Up Appt.: PCP in one week Oncology as scheduled Skilled NF Admit to: [facility] Certification (SNF) I certify that SNF services are required to be given on an inpatient basis because of the above named patient's need for group home care on a continuing basis for the conditions(s) for which he/she was receiving inpatient hospital services prior to his/her transfer to the SNF. Detention Facility Order: Nursing Services, Mold Washer-Evaluate & Treat, Physical Therapy-Evaluate & Treat Oxygen Delivery Method: Nasal Cannula Discharge Diet: Low Sodium Diet, ADA Diet Daily Activity as Tolerated: Yes New & Resume Previous Orders Dulce Dunn Apr 02, 2023 13:00 DULCE DUNN MD Apr 02, 2023 13:01
--- NOTE | 2023-04-02 13:27 | Physical Therapy Daily Note ---
PT Daily Note-Current Subjective Patient lying supine in bed upon PT arrival, agreeable to treatment. Patient rates pain at 2/10 currently in her back. Pain Section J - Health Conditions 1. Rarely or not at all 2. Occasionally 3. Frequently 4. Almost constantly 8. Unable to answer Pain Effect on Sleep: 1 Pain Interference with Therapy: 1 Pain Interference w/Day-to-Day: 1 Transfers SCALE: Activities may be completed with or without assistive devices. 5-Jfdiqebvzn-htwagyi completes the activity by him/herself with no assistance from a helper. 5-Set-up or Clean-up Assistance-helper sets up or cleans up; patient completes activity. [place] assists only prior to or following the activity. 4-Supervision or Touching Assistance-helper provides verbal cues and/or touching/steadying and/or contact guard assistance as patient completes activity. Assistance may be provided throughout the activity or intermittently. 3-Partial/Moderate Assistance-helper does LESS THAN HALF the effort. [place] lifts, holds or supports trunk or limbs, but provides less than half the effort. 2-Substantial/Maximal Assistance-helper does MORE THAN HALF the effort. [place] lifts or holds trunk or limbs and provides more than half the effort. 5-Vrdajhqzh-ptjccs does ALL the effort. Patient does none of the effort to complete the activity. Or, the assistance of 2 or more helpers is required for the patient to complete the activity. If activity was not attempted, code reason: 7-Patient Refused. 9-Not Applicable-not attempted and the patient did not perform the activity before the current illness, exacerbation or injury. 10-Not Attempted due to Environmental Limitations-(lack of equipment, weather restraints, etc.). 88-Not Attempted due to Medical Conditions or Safety Concerns. Roll Left & Right (QC): 3 Sit to Lying (QC): 3 Lying to Sitting/Side of Bed(Q: 3 Sit to Stand (QC): 3 Chair/Fuz-du-Orlar Xfer(QC): 3 Weight Bearing Right Lower Extremity: Right Full Weight Bearing Left Lower Extremity: Left Full Weight Bearing Gait Training Does the Patient Walk?: Yes Distance: 5 feet Walk 10 feet (QC): 3 Gait Assistive Device: FWW Assessment Current Status: Fair Progress Patient performs all bed mobility and transfers with mod A. Patient requires additional verbal cues for bed mobility of supine to sit due to decline in core strength. Patient ambulates 5 feet with FWW, with mod A and verbal cues for safety, progression, posture and controlling descent to the chair. Patient in chair post treatment with all needs met, nursing notified, call light in reach, and OT in the room. PT Alumni Coordinator Goals Jail Goals PT Alumni Coordinator Goals Time Frame: Apr 12, 2023 Roll Left & Right (QC): 4 Sit to Lying (QC): 4 Lying-Sitting on Side/Bed(QC): 4 Sit to Stand (QC): 4 Chair/Gvs-gf-Ytrom Xfer(QC): 4 Toilet Transfer (QC): 4 Walk 10 feet (QC): 4 Walk 50ft with 2 Turns (QC): 4 Walk 150 ft (QC): 4 PT Plan Treatment/Plan Treatment Plan: Continue Plan of Care Treatment Plan: Bed Mobility, Education, Functional Activity Edward, Functional Strength, Gait, Safety, Therapeutic Exercise, Transfers Treatment Duration: Apr 12, 2023 Frequency: 5 times per week Estimated Hrs Per Day: .25 hour per day Patient and/or Family Agrees t: Yes Safety Risks/Education Patient Education: Gait Training, Transfer Techniques Teaching Recipient: Patient Teaching Methods: Demonstration, Discussion Response to Teaching: Reinforcement Needed Time Time In: 1034 Time Out: 1053 DATE: Apr 02, 2023 Total Billed Treatment Time: 19 Total Billed Treatment Visit, MIRTHA MONTES PT Apr 02, 2023 13:27
[2023-04-02 13:32] VITALS: BP 106/71
--- NOTE | 2023-04-02 15:49 | Occupational Ther Daily Note ---
OT Current Status-Daily Note Subjective AGREEABLE TO TO, PAIN IS MORE UNDER CONTROL Mental Status/Objective Patient Orientation: Person, Place, Situation ADL-Treatment PERFORMS SIMPLE ADLS SITTING EDGE OF RECLINER CHAIR. Therapy Code Descriptions/Definitions Functional [place] Measure: 0=Not Assessed/NA 4=Minimal Assistance 1=Total Assistance 5=Supervision or Setup 2=Maximal Assistance 6=Modified [place] 3=Moderate Assistance 7=Complete IndependenceSCALE: Activities may be completed with or without assistive devices. 0-Memgfzjlyx-engccdp completes the activity by him/herself with no assistance from a helper. 5-Set-up or Clean-up Assistance-helper sets up or cleans up; patient completes activity. [place] assists only prior to or following the activity. 4-Supervision or Touching Assistance-helper provides verbal cues and/or touching/steadying and/or contact guard assistance as patient completes activity. Assistance may be provided throughout the activity or intermittently. 3-Partial/Moderate Assistance-helper does LESS THAN HALF the effort. [place] lifts, holds or supports trunk or limbs, but provides less than half the effort. 2-Substantial/Maximal Assistance-helper does MORE THAN HALF the effort. [place] lifts or holds trunk or limbs and provides more than half the effort. 5-Gbohatpcb-ealhol does ALL the effort. Patient does none of the effort to complete the activity. Or, the assistance of 2 or more helpers is required for the patient to complete the activity. If activity was not attempted, code reason: 7-Patient Refused. 9-Not Applicable-not attempted and the patient did not perform the activity before the current illness, exacerbation or injury. 10-Not Attempted due to Environmental Limitations-(lack of equipment, weather restraints, etc.). 88-Not Attempted due to Medical Conditions or Safety Concerns. Eating (QC): 6 Oral Hygiene (QC): 5 Shower/Bathe Self (QC): 88 Upper Body Dressing (QC): 4 Lower Body Dressing (QC): 4 On/Off Footwear: 4 Toileting Hygiene (QC): 3 Toilet Transfer (QC): 4 SHORT DISTANCE AMBULATION W/ FWW Education OT Patient Education: Correct positioning, Modified ADL techniques, Progress toward Goal/Update tx plan, Purpose of tx/functional activities, Reviewed precautions, Rehab process, Safety issues, Transfer techniques Teaching Recipient: Patient Teaching Methods: Demonstration, Discussion Response to Teaching: Reinforcement Needed OT Alf Goals Alf Goals Time Frame: Apr 04, 2023 Oral Hygiene (QC): 5 (sitting) Toileting Hygiene (QC): 4 Shower/Bathe Self (QC): 3 Upper Body Dressing (QC): 4 Lower Body Dressing (QC): 4 On/Off Footwear (QC): 4 1=Demonstrate adherence to instructed precautions during ADL tasks. 2=Patient will verbalize/demonstrate understanding of assistive devices/modifications for ADL. 3=Patient will improve strength/tolerance for activity to enable patient to perform ADL's. OT Education/Plan Problem List/Assessment Assessment: Impaired Self-Care Skills Discharge Recommendations Plan/Recommendations: Continue POC Treatment Plan/Plan of Care Treatment,Training & Education: Yes Patient would benefit from OT for education, treatment and training to promote independence in ADL's, mobility, safety and/or upper extremity function for ADL's. Plan of Care: ADL Retraining, Concurrent Therapy, Functional Mobility, Group Exercise/Act as Ind, UE Funct Exercise/Act, UE Neuromus Re-Ed/Coord Treatment Duration: Apr 04, 2023 Frequency: 3 times per week (3-5 times per week) Estimated Hrs Per Day: .25 hour per day Agreement: Yes Rehab Potential: Guarded Time Start Time: 10:46 Stop Time: 11:01 DATE: Apr 02, 2023 Total Time Billed (hr/min): 15 Billed Treatment Time adl 15 MIN SEBASTIAN GAN OT Apr 02, 2023 15:49
--- NOTE | 2023-04-02 17:08 | Discharge Summary ---
Discharge Summary Hospital Course Problems/Dx: (1) Acute kidney injury superimposed on chronic kidney disease Status: Acute (2) CKD (chronic kidney disease) stage 4, GFR 15-29 ml/min Status: Chronic (3) Metastatic lung cancer (metastasis from lung to other site) Status: Chronic (4) Metastasis to liver Status: Acute (5) Pain of metastatic malignancy Status: Acute (6) Back pain Status: Acute (7) Obesity Status: Chronic (8) Debility Status: Acute Hospital Course Date of Admission: Mar 30, 2023 at 18:15 Admission Diagnosis : ROSAS on CKD 4 Family Physician/Provider: Nilton Kyle DO Date of Discharge: 04/02/23 Discharge Diagnosis: ROSAS on CKD 4 Hospital Course: Colleen Montoya is an 82 year old female with PMH recently diagnosed metastatic lung cancer, insulin dependent diabetes, obesity, who was admitted with ROSAS on CKD 4. She was dehydrated and responded well to IV fluids. Her creatinine improved to near her last known baseline. Her course was complicated by back pain. She was unable to participate with therapy due to the pain. She was started on a Fentanyl patch. Her pain improved significantly. She was discharged in fair, improved condition to [facility]. She should follow up with her PCP and Oncology as scheduled. Labs and Pending Lab Test: Laboratory Tests 04/01/23 20:06: Glucometer 176H 04/02/23 05:24: White Blood Count 9.3, Red Blood Count 4.04, Hemoglobin 11.7, Hematocrit 38, Mean Corpuscular Volume 94, Mean Corpuscular Hemoglobin 29, Mean Corpuscular Hemoglobin Concent 31L, Red Cell Distribution Width 19.5H, Platelet Count 227, Mean Platelet Volume 11.9, Sodium Level 140, Potassium Level 4.6, Chloride Level 110H, Carbon Dioxide Level 19L, Anion Gap 11, Blood Urea Nitrogen 62H, Creatinine 1.98H, Estimat Glomerular Filtration Rate 25, BUN/Creatinine Ratio 31, Glucose Level 138H, Calcium Level 8.9 04/02/23 11:28: Glucometer 200H Home Meds Active Hydrocodone-Acetamin 5-325 mg (Hydrocodone/Acetaminophen) 5 Mg-325 Mg Tablet 1-2 Ea PO Q4H PRN 7 Days Fentanyl Patch 25 MCG (Fentanyl) 25 Mcg/Hour Patch.td72 25 Mcg TD Q72H 14 Days Levemir Flexpen (Insulin Detemir) 100 Unit/Ml (3 Ml) Insuln.pen 10 Unit SQ HS 30 Days Novolog Flexpen (Insulin Aspart) 100 Unit/Ml (3 Ml) Solution 4 Units SQ TIDWM 30 Days Famotidine 20 Mg Tablet 20 Mg PO DAILY 30 Days Lovastatin 10 Mg Tablet 10 Mg PO HS 30 Days Aspirin EC (Aspirin) 81 Mg Tablet.dr 81 Mg PO DAILY 30 Days K-Tab ER (Potassium Chloride) 10 Meq Tablet.er 10 Meq PO DAILY 30 Days Neurontin (Gabapentin) 300 Mg Capsule 600 Mg PO HS 30 Days TAKES 2 (300MG) CAPS Farxiga (Dapagliflozin Propanediol) 5 Mg Tablet 5 Mg PO DAILY 30 Days [place]-3 Acid Ethyl Esters 1 Gram Capsule 1 Gm PO DAILY 30 Days Vitamin D3 (Cholecalciferol (Vitamin D3)) 25 Mcg (1000 Unit) Capsule 25 Mcg PO DAILY 30 Days Furosemide 40 Mg Tablet 40 Mg PO DAILY 30 Days Pantoprazole Sodium 40 Mg Tablet.dr 40 Mg PO HS 30 Days Assessment/Pt Instructions See instructions Discharge Planning: >30 minutes discharge planning Discharge Instructions Discharge Diet: Low Sodium Diet, ADA Diet Activity as Tolerated: Yes Discharge Physical Examination Vital Signs Vital Signs Date Time Temp Pulse Resp B/P (MAP) Pulse Ox O2 Delivery O2 Flow Rate FiO2 04/02/23 13:32 36.9 85 18 106/71 96 Nasal Cannula 2.00 General Appearance: No Apparent Distress, Obese Respiratory: Lungs Clear, No Respiratory Distress Cardiovascular: Regular Rate, Rhythm, No Murmur Gastrointestinal: Normal Bowel Sounds, Soft Extremity: Normal Inspection, Pedal Edema Neurologic/Psychiatric: Alert, Motor Weakness Allergies: Coded Allergies: NKANo Known Allergies (Verified Allergy, Unknown, 03/26/06) Copy Copies To 1: NILTON KYLE DO Discharge Summary Date of Admission Mar 30, 2023 at 18:15 Date of Discharge Apr 02, 2023 at 13:32 Discharge Date: Apr 02, 2023 Discharge Time: 13:32 Admission Diagnosis ROSAS intractable back pain Discharge Diagnosis ROSAS on CKD Metastatic lung cancer to the liver Back pain T2DM Cholilithiasis without acute cholecystitis Obesity Debility (1) Acute kidney injury superimposed on chronic kidney disease Status: Acute (2) CKD (chronic kidney disease) stage 4, GFR 15-29 ml/min Status: Chronic (3) Metastatic lung cancer (metastasis from lung to other site) Status: Chronic (4) Metastasis to liver Status: Acute (5) Pain of metastatic malignancy Status: Acute (6) Back pain Status: Acute (7) Obesity Status: Chronic (8) Debility Status: Acute CALLI DUNN MD Apr 02, 2023 17:07
[2023-04-02] MEDS ORDERED: RT-ALBUTEROL/IPRATROPIUM 3 ML (DUONEB) VIAL INH SCH (21:00)
[2023-04-04] MEDS ORDERED: FENTANYL PATCH REMOVAL TP SCH (11:14)
== END 2023-04-02 13:32 | DRG 683 ==
LOC: EDUNIT# 15:32 → ER 15:33 → 4TH 18:15
PROVIDERS: ADMIT Family Medicine; ATTEND Internal Medicine
DX: N17.9 Acute kidney failure, unspecified (principal); C34.12 Malignant neoplasm of upper lobe, left bronchus or lung; C78.7 Secondary malignant neoplasm of liver and intrahepatic bile duct; C78.01 Secondary malignant neoplasm of right lung; E87.20 Acidosis, unspecified; I42.9 Cardiomyopathy, unspecified; I12.9 Hypertensive chronic kidney disease with stage 1 through stage 4 chronic kidney disease, or unspecified chronic kidney disease; E11.22 Type 2 diabetes mellitus with diabetic chronic kidney disease; N18.4 Chronic kidney disease, stage 4 (severe); Z79.4 Long term (current) use of insulin; J44.9 Chronic obstructive pulmonary disease, unspecified; K80.20 Calculus of gallbladder without cholecystitis without obstruction; F03.90 Unspecified dementia, unspecified severity, without behavioral disturbance, psychotic disturbance, mood disturbance, and anxiety; E86.0 Dehydration; L89.302 Pressure ulcer of unspecified buttock, stage 2; L89.151 Pressure ulcer of sacral region, stage 1; G89.3 Neoplasm related pain (acute) (chronic); E87.5 Hyperkalemia; I48.91 Unspecified atrial fibrillation; E11.40 Type 2 diabetes mellitus with diabetic neuropathy, unspecified; I25.10 Atherosclerotic heart disease of native coronary artery without angina pectoris; E78.00 Pure hypercholesterolemia, unspecified; E66.9 Obesity, unspecified; F32.A Depression, unspecified; Z87.891 Personal history of nicotine dependence
CPT/HCPCS: 36415; 51702; 71250; 74176; 76705; 80048; 80053; 81000; 82947; 83735; 85007; 85027; 94640; 94760; 96361; 96374

== ENCOUNTER 2023-04-13 21:17 | Inpatient (IN) | payer MEDICARE, MEDICAID ==
[~2023-04-13] VITALS: Ht 157.5 cm; Wt 94.5 kg
[~2023-04-13 21:17] MED LIST changes: +FENT1PAT8 TD
[2023-04-13] MEDS ORDERED: CEFEPIME INJECTION 1,000 MG in NS (IVPB) 50 ML 50 ML IV ONE (21:30)
[2023-04-13] MEDS ORDERED: LACTATED RINGERS 1,000 ML IV ONE ×2 (21:30→23:15)
[2023-04-13] MEDS ORDERED: LIDOCAINE UROJET 2% GEL 10 ML PKG TOP ONE (21:30)
--- NOTE | 2023-04-13 21:38 | ED General ---
General Stated Complaint: ALTERED MENTAL STATUS Source of Information: Patient History of Present Illness Date Seen by Provider: Apr 13, 2023 Time Seen by Provider: 20:19 Initial Comments PT ARRIVES VIA EMS FROM [facility], WHERE SHE HAS BEEN A RESIDENT SINCE 04/02/23 PT WITH DEMENTIA, AND HAS HAD ALTERED MENTAL STATUS ( "NOT ACTING RIGHT" ) AND GENERALIZED WEAKNESS FOR THE LAST SEVERAL DAYS PT HAS METASTATIC LUNG CANCER WITH LIVER METS SHE WAS ADMITTED HERE 02/10-02/14 FOR UNCONTROLLED DIABETES AND UTI SHE WAS ADMITTED AGAIN 03/30-04/02 FOR DEHYDRATION/ACUTE KIDNEY INJURY. SHE WAS ADMITTED TO THE [facility] WHEN DISMISSED FROM THE HOSPITAL PT ALSO HAS CHRONIC ATRIAL FIBRILLATION, CAD, HTN, CHF SHE HAS PRESSURE ULCERS ON HER SACRUM/BUTTOCKS AND BOTH HEELS. EMS REPORT THAT THEY WERE INFORMED THAT PT'S O2 SATS HAVE ONLY BEEN 81% SINCE 1399 TODAY--NORMALLY WEARS O2 AT 2L/NC AND THEY INCREASED IT TO 4L/NC AND THE O2 SATS DID NOT GO UP EMS REPORT THAT THEY PLACED PT ON O2 AT 3L/NC AND O2 SATS FOR THEM 94-96% ACCUCHECK FOR EMS 128 BP FOR EMS 89/54 PCP: DR. MALDONADO Allergies and Home Medications Allergies Coded Allergies: Vu Known Allergies (Verified Allergy, Unknown, 03/26/06) Patient Home Medication List Home Medication List Reviewed: Yes Acetaminophen (Tylenol) 325 Mg Tablet, 650 MG PO Q6H PRN for PAIN-MILD (1-4), (Reported) Entered as Reported by: CHRISSIE JACOB on 04/14/231005 Last Action: Reviewed Aspirin (Aspirin EC) 81 Mg Tablet.dr 81 MG PO DAILY, (Reported) Entered as Reported by: CHRISSIE JACOB on 04/14/231005 Last Action: Reviewed Cholecalciferol (Vitamin D3) (Vitamin D3) 25 Mcg (1000 Unit) Tablet, 25 MCG PO DAILY, (Reported) Entered as Reported by: CHRISSIE JACOB on 04/14/231005 Last Action: Reviewed Collagenase Clostridium Hist. (Collagenase) 1 Each Powder.ea., 1 APPLIC TOP BID, (Reported) Entered as Reported by: CHRISSIE JACOB on 04/14/231005 Last Action: Reviewed Dapagliflozin Propanediol (Farxiga) 5 Mg Tablet, 5 MG PO DAILY, (Reported) Entered as Reported by: CHRISSIE JACOB on 04/14/231005 Last Action: Reviewed Dimethicone (Cavilon Durable Barrier) 1.3 % Cream..g., 1 APPLIC TP BID, (Reported) Entered as Reported by: CHRISSIE JACOB on 04/14/231005 Last Action: Reviewed Famotidine (Famotidine) 20 Mg Tablet, 20 MG PO DAILY, (Reported) Entered as Reported by: CHRISSIE JACOB on 04/14/231005 Last Action: Reviewed Fentanyl (Fentanyl Patch 25 MCG) 25 Mcg/Hour Patch.td72, 25 MCG TD Q72H, (Reported) Entered as Reported by: CHRISSIE JACOB on 04/14/231005 Last Action: Reviewed Furosemide (Furosemide) 40 Mg Tablet, 40 MG PO DAILY, (Reported) Entered as Reported by: CHRISSIE JACOB on 04/14/231005 Last Action: Reviewed Gabapentin (Neurontin) 300 Mg Capsule, 600 MG PO 1800, (Reported) Entered as Reported by: CHRISSIE JACOB on 04/14/231005 Last Action: Reviewed Hydrocodone/Acetaminophen (Hydrocodone-Acetamin 5-325 mg) 5 Mg-325 Mg Tablet, 1 TAB PO Q4H PRN for PAIN-MODERATE (5-7), (Reported) Entered as Reported by: CHRISSIE JACOB on 04/14/231005 Last Action: Reviewed Insulin Aspart (Novolog Flexpen) 100 Unit/Ml (3 Ml) Solution, 4 UNITS SQ TIDWM Prescribed by: CALLI DUNN on 04/02/23 1257 Last Action: Reviewed Insulin Detemir (Levemir Flexpen) 100 Unit/Ml (3 Ml) Insuln.pen, 10 UNIT SQ HS Prescribed by: CALLI DUNN on 04/02/23 1257 Last Action: Reviewed Lovastatin (Lovastatin) 10 Mg Tablet, 10 MG PO HS, (Reported) Entered as Reported by: CHRISSIE JACOB on 04/14/231005 Last Action: Reviewed Nystatin (Nystatin) 100,000 Unit/Gram Powder, 1 APPLIC TP BID, (Reported) Entered as Reported by: CHRISSIE JACOB on 04/14/231005 Last Action: Reviewed Newbury-3 Acid Ethyl Esters (Newbury-3 Acid Ethyl Esters) 1 Gram Capsule, 1 GM PO DAILY, (Reported) Entered as Reported by: CHRISSIE JACOB on 04/14/231005 Last Action: Reviewed Ondansetron HCl (Ondansetron HCl) 4 Mg Tablet, 4 MG PO Q8H PRN for NAUSEA/VOMITING-1ST LINE, (Reported) Entered as Reported by: CHRISSIE JACOB on 04/14/231005 Last Action: Reviewed Pantoprazole Sodium (Pantoprazole Sodium) 40 Mg Tablet.dr, 40 MG PO 1800, (Reported) Entered as Reported by: CHRISSIE JACOB on 04/14/231005 Last Action: Reviewed Potassium Chloride (K-Tab ER) 10 Meq Tablet.er, 10 MEQ PO DAILY, (Reported) Entered as Reported by: CHRISSIE JACOB on 04/14/231005 Last Action: Reviewed Discontinued Medications Aspirin (Aspirin EC) 81 Mg Tablet.dr, 81 MG PO DAILY Discontinued Reason: No Longer Taking Prescribed by: CALLI DUNN on 04/02/23 1257 Last Action: Discontinued Cholecalciferol (Vitamin D3) (Vitamin D3) 25 Mcg (1000 Unit) Capsule, 25 MCG PO DAILY Discontinued Reason: No Longer Taking Prescribed by: CALLI DUNN on 04/02/23 1257 Last Action: Discontinued Dapagliflozin Propanediol (Farxiga) 5 Mg Tablet, 5 MG PO DAILY Discontinued Reason: No Longer Taking Prescribed by: CALLI DUNN on 04/02/23 1257 Last Action: Discontinued Famotidine (Famotidine) 20 Mg Tablet, 20 MG PO DAILY Discontinued Reason: No Longer Taking Prescribed by: CALLI DUNN on 04/02/23 1257 Last Action: Discontinued Fentanyl (Fentanyl Patch 25 MCG) 25 Mcg/Hour Patch.td72, 25 MCG TD Q72H Discontinued Reason: No Longer Taking Prescribed by: CALLI DUNN on 04/02/23 1258 Last Action: Discontinued Furosemide (Furosemide) 40 Mg Tablet, 40 MG PO DAILY Discontinued Reason: No Longer Taking Prescribed by: CALLI DUNN on 04/02/23 1257 Last Action: Discontinued Gabapentin (Neurontin) 300 Mg Capsule, 600 MG PO HS Discontinued Reason: No Longer Taking Prescribed by: CALLI DUNN on 04/02/23 1257 Last Action: Discontinued Hydrocodone/Acetaminophen (Hydrocodone-Acetamin 5-325 mg) 5 Mg-325 Mg Tablet, 1- 2 EA PO Q4H PRN for PAIN-SEE DOSE INSTRUCTIONS Discontinued Reason: No Longer Taking Prescribed by: CALLI DUNN on 04/02/23 1258 Last Action: Discontinued Lovastatin (Lovastatin) 10 Mg Tablet, 10 MG PO HS Discontinued Reason: No Longer Taking Prescribed by: CALLI DUNN on 04/02/23 1257 Last Action: Discontinued Newbury-3 Acid Ethyl Esters (Newbury-3 Acid Ethyl Esters) 1 Gram Capsule, 1 GM PO DAILY Discontinued Reason: No Longer Taking Prescribed by: CALLI DUNN on 04/02/23 1257 Last Action: Discontinued Pantoprazole Sodium (Pantoprazole Sodium) 40 Mg Tablet.dr, 40 MG PO HS Discontinued Reason: No Longer Taking Prescribed by: CALLI DUNN on 04/02/23 1257 Last Action: Discontinued Potassium Chloride (K-Tab ER) 10 Meq Tablet.er, 10 MEQ PO DAILY Discontinued Reason: No Longer Taking Prescribed by: CALLI DUNN on 04/02/23 1257 Last Action: Discontinued Review of Systems Review of Systems Constitutional: see HPI Past Fzlsbrh-Biktza-Ohusqv Hx Patient Social History Tobacco Use?: Yes Tobacco type used: Cigarettes Smoking Status: Former Smoker Substance use?: No Alcohol Use?: No Immunizations Up To Date Tetanus Booster (TDap): Unknown PED Vaccines UTD: No First/Initial COVID19 Vaccinat: 02/19 Second COVID19 Vaccination Maycol: 02/19 Third COVID19 Vaccination Date: 02/19 Seasonal Allergies Seasonal Allergies: No Past Medical History Surgery/Hospitalization HX: A FIB, LUNG MASSES, Surgeries: Yes (cyst breast bone, carpal tunnel, cardiac stents; BACK SURGERY, lung biopsy) Cardiac, Coronary Stent, Orthopedic Respiratory: Yes (LUNG CANCER WITH METS TO LIVER) COPD Currently Using CPAP: No Currently Using BIPAP: No Cardiac: Yes (CHF) Atrial Fibrillation, Cardiomyopathy, Chronic Edema/Swelling, Coronary Artery Disease, Heart Attack, High Cholesterol, Hypertension, Irregular Heartbeat Neurological: Yes Dementia, Neuropathy Reproductive Disorders: No Female 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 [employer] History: Menopausal Sexually Transmitted Disease: No HIV/AIDS: No Genitourinary: Yes Renal Failure Gastrointestinal: Yes Gastroesophageal Reflux, Gastrointestinal Bleed Musculoskeletal: Yes Arthritis, Chronic Back Pain Endocrine: Yes (OBESE) Diabetes, Non-Insulin dep HEENT: Yes Cataract Loss of Vision: Denies Hearing Impairment: Denies Cancer: No Psychosocial: Yes (DEMENTIA) Depression Integumentary: Yes (DECUBITUS ULCERS TO HEELS AND SACRUM) Blood Disorders: Yes (anemia) Adverse Reaction/Blood Tranf: No Family Medical History Cardiovascular disease 19 FATHER 19 MOTHER FH: stroke FHx: diabetes mellitus Heart Disease, Diabetes, Hypertension 01/2019--EGD 04/2020--STRESS TEST. Physical Exam Vital Signs Vital Signs - First Documented 04/13/23 04/13/23 21:20 22:26 Temp 36.8 Pulse 91 Resp 17 B/P (MAP) 128/66 (86) Pulse Ox 95 O2 Delivery Nasal Cannula O2 Flow Rate 3.00 Capillary Refill : Height, Weight, BMI Height: 5'1.50" Weight: 191lbs. 8.0oz. 86.157490dr; 33.66 BMI Method:Stated General Appearance: WD/WN, Obese, Other (PT MOANS/SCREAMS WITH ANY MOVEMENT; ) HEENT: PERRL/EOMI, Other (ORAL MUCOSA EXTREMELY DRY) Neck: Normal Inspection Respiratory: Normal Breath Sounds, No Accessory Muscle Use, No Respiratory Distress Cardiovascular: Irregularly Irregular Gastrointestinal: Non Tender Back: No CVA Tenderness Extremity: Other (DRESSINGS ON BOTH HEELS) Neurologic/Psychiatric: Alert, No Motor/Sensory Deficits, Other (ORIENTED TO SELF, GROSSLY ORIENTED TO PLACE AND SITUTATION. ABLE TO ANSWER BASIC YES/NO QUESTIONS AND FOLLOW A FEW BASIC COMMANDS. SPEECH CLEAR. ) Skin: Normal Color, Warm/Dry, Other (PT WITH EXTENSIVE CANDIDAL INTERTRIGO UNDER BREASTS AND IN GROIN/GENITAL AREA. ) Focused Exam Lactate Level 04/13/23 21:21: Lactic Acid Level 1.31 Lactic Acid Level Laboratory Tests Test 04/13/23 21:21 Lactic Acid Level 1.31 MMOL/L (0.50-2.00) Progress/Results/Core Measures Suspected Sepsis SIRS Temperature: Pulse: Respiratory Rate: Blood Pressure / Mean: 04/13/23 21:21: Lactic Acid Level 1.31 Laboratory Tests 04/13/23 21:21: INR Comment 1.3, Total Bilirubin 1.6H Results/Orders Lab Results Laboratory Tests Test 04/13/23 21:21 04/13/23 21:30 04/13/23 21:33 04/13/23 21:57 Range/Units White Blood Count 12.0 H 4.3-11.0 10^3/uL Red Blood Count 3.93 3.80-5.11 10^6/uL Hemoglobin 11.2 L 11.5-16.0 g/dL Hematocrit 37 35-52 % Mean Corpuscular Volume 94 80-99 fL Mean Corpuscular Hemoglobin 29 25-34 pg Mean Corpuscular Hemoglobin Concent 30 L 32-36 g/dL Red Cell Distribution Width 21.0 H 10.0-14.5 % Platelet Count 281 130-400 10^3/uL Mean Platelet Volume 11.6 9.0-12.2 fL Immature Granulocyte % (Auto) 2 % Neutrophils (%) (Auto) 85 H 42-75 % Lymphocytes (%) (Auto) 4 L 12-44 % Monocytes (%) (Auto) 8 0-12 % Eosinophils (%) (Auto) 1 0-10 % Basophils (%) (Auto) 0 0-10 % Neutrophils # (Auto) 10.1 H 1.8-7.8 10^3/uL Lymphocytes # (Auto) 0.5 L 1.0-4.0 10^3/uL Monocytes # (Auto) 0.9 0.0-1.0 10^3/uL Eosinophils # (Auto) 0.1 0.0-0.3 10^3/uL Basophils # (Auto) 0.0 0.0-0.1 10^3/uL Immature Granulocyte # (Auto) 0.3 H 0.0-0.1 10^3/uL Neutrophils % (Manual) 90 % Lymphocytes % (Manual) 1 % Monocytes % (Manual) 4 % Band Neutrophils 5 % Nucleated Red Blood Cells 3 Hypochromasia SLIGHT Microcytosis SLIGHT Macrocytosis SLIGHT Prothrombin Time 16.0 H 12.2-14.7 SEC INR Comment 1.3 0.8-1.4 Activated Partial Thromboplast Time 32 24-35 SEC Sodium Level 134 L 135-145 MMOL/L Potassium Level 7.1 *H 3.6-5.0 MMOL/L Chloride Level 104 98-107 MMOL/L Carbon Dioxide Level 18 L 21-32 MMOL/L Anion Gap 12 5-14 MMOL/L Blood Urea Nitrogen 116 *H 7-18 MG/DL Creatinine 3.82 H 0.60-1.30 MG/DL Estimat Glomerular Filtration Rate 11 BUN/Creatinine Ratio 30 Glucose Level 142 H 70-105 MG/DL Lactic Acid Level 1.31 0.50-2.00 MMOL/L Calcium Level 8.8 8.5-10.1 MG/DL Corrected Calcium 9.5 8.5-10.1 MG/DL Magnesium Level 3.3 H 1.6-2.4 MG/DL Total Bilirubin 1.6 H 0.1-1.0 MG/DL Aspartate Amino Transf (AST/SGOT) 94 H 5-34 U/L Alanine Aminotransferase (ALT/SGPT) 41 0-55 U/L Alkaline Phosphatase 492 H 40-136 U/L Total Creatine Kinase 213 H 29-168 U/L Creatine Kinase MB 11.7 *H <6.6 NG/ML Myoglobin 920.3 H 10.0-92.0 NG/ML Troponin I 0.075 H <0.028 NG/ML B-Type Natriuretic Peptide 1573.3 H <100.0 PG/ML Total Protein 6.2 L 6.4-8.2 GM/DL Albumin 3.1 L 3.2-4.5 GM/DL TSH [place] Testing 0.66 0.35-4.94 UIU/ML Urine Color YELLOW Urine Clarity CLOUDY Urine pH 5.5 5-9 Urine Specific [place] 1.020 1.016-1.022 Urine Protein 1+ H NEGATIVE Urine Glucose (UA) NEGATIVE NEGATIVE Urine Ketones NEGATIVE NEGATIVE Urine Nitrite NEGATIVE NEGATIVE Urine Bilirubin 1+ H NEGATIVE Urine Urobilinogen 2.0 < = 1.0 MG/DL Urine Leukocyte Esterase 3+ H NEGATIVE Urine RBC (Auto) 2+ H NEGATIVE Urine RBC 10-25 H /HPF Urine WBC TNTC H /HPF Urine Squamous Epithelial Cells 2-5 /HPF Urine Crystals NONE /LPF Urine Bacteria LARGE H /HPF Urine Casts NONE /LPF Urine Mucus NEGATIVE /LPF Urine Culture Indicated CULTURE PENDING Influenza Type A (RT-PCR) Not Detected Not Detecte Influenza Type B (RT-PCR) Not Detected Not Detecte SARS-CoV-2 RNA (RT-PCR) Not Detected Not Detecte Ammonia 66 H 11-32 UMOL/L Test 04/13/23 22:01 04/13/23 22:21 04/13/23 23:29 Range/Units Blood Gas Puncture Site R RAD Blood Gas Patient Temperature UNK Arterial Blood pH 7.32 *L 7.37-7.43 Arterial Blood Partial Pressure CO2 36 35-45 MMHG Arterial Blood Partial Pressure O2 90 79-93 MMHG Arterial Blood HCO3 18 L 23-27 MMOL/L Arterial Blood Total CO2 19.1 L 21.0-31.0 MMOL/L Arterial Blood Oxygen Saturation 97 94-100 % Arterial Blood Base Excess -7.0 L -2.5-2.5 MMOL/L Trev Test YES-POS Blood Gas Ventilator Setting NO Blood Gas Inspired Oxygen 3L Sodium Level 135 135-145 MMOL/L Potassium Level 6.7 *H 3.6-5.0 MMOL/L Chloride Level 107 98-107 MMOL/L Carbon Dioxide Level 15 L 21-32 MMOL/L Anion Gap 13 5-14 MMOL/L Blood Urea Nitrogen 120 *H 7-18 MG/DL Creatinine 3.47 H 0.60-1.30 MG/DL Estimat Glomerular Filtration Rate 13 BUN/Creatinine Ratio 35 Glucose Level 135 H 70-105 MG/DL Calcium Level 8.1 L 8.5-10.1 MG/DL Glucometer 122 H 70-110 MG/DL Micro Results Microbiology 04/13/23 Blood Culture - Preliminary, Resulted No growth 04/13/23 Urine Culture - Final, Complete Citrobacter freundii complex 04/13/23 Blood Culture - Preliminary, Resulted No growth My Orders Orders - SUPA ROLON DO Ed Iv/Invasive Line Start (04/13/23 21:22) Ekg Tracing (04/13/23 21:22) O2 (04/13/23 21:22) Monitor-Rhythm Ecg Trace Only (04/13/23 21:22) Bnp [place] (04/13/23 21:22) Cbc With Automated Diff (04/13/23 21:22) Comprehensive Metabolic Panel (04/13/23 21:22) Creatine Kinase (04/13/23 21:22) Creatine Kinase Mb (04/13/23 21:22) Lactic Acid Analyzer (04/13/23 21:22) Magnesium (04/13/23 21:22) Protime With Inr (04/13/23 21:22) Partial Thromboplastin Time (04/13/23 21:22) Thyroid Analyzer (04/13/23 21:22) Ua Culture If Indicated (04/13/23 21:22) Myoglobin Serum (04/13/23 21:22) Troponin I Ed (04/13/23 21:22) Chest 1 View, Ap/Pa Only (04/13/23 21:22) Ct Head Wo-R/O Stroke (04/13/23 21:22) Covid 19 Inhouse Test (04/13/23 21:22) Blood Culture (04/13/23 21:22) Sputum Culture (04/13/23 21:22) Urine Culture (04/13/23 21:22) Ed Iv/Invasive Line Start (04/13/23 21:22) Ed Iv/Invasive Line Start (04/13/23 21:22) O2 (04/13/23 21:22) Remove Rings In Anticipation O (04/13/23 21:22) Lactated Ringers (Lr 1000 Ml Iv Solution (04/13/23 21:30) Cefepime Injection (Cefepime Injection) (04/13/23:30) Lidocaine 2% (Urojet) (Lidocaine 2% (Uro (04/13/23 21:30) Influenza A And B By Pcr (04/13/23 21:22) Manual Differential (04/13/23:21) Arterial Blood Gas (04/13/23 22:01) Ammonia (04/13/23 21:57) Ipratropium/Albuterol Inh Soln (Ipratrop (04/13/23 22:15) Budesonide Inhalation Solution (Budesoni (04/13/23 22:15) Rt Request For Service (04/13/23 22:11) Vancomycin Injection (Vancomycin Injecti (04/13/23 22:15) Fentanyl Injection (Fentanyl Injection (04/13/23 22:15) Basic Metabolic Panel (04/13/23 22:17) Albuterol Pre-Mix Nebs (Rt) (Albuterol (04/13/23 22:17) D50w (Emergency) Syringe (Dextrose 50% 5 (04/13/23 23:15) Insulin (Regular) Per Unit (Insulin (Reg (04/13/23 23:15) Ed Iv/Invasive Line Start (04/13/23 23:11) Lactated Ringers (Lr 1000 Ml Iv Solution (04/13/23 23:15) Calcium Chloride 10% Syringe (Calcium Ch (04/13/23 23:15) Fentanyl Injection (Fentanyl Injection (04/14/23 00:15) Medications Given in ED Vital Signs/I&O 04/13/23 04/13/23 21:20 22:26 Temp 36.8 Pulse 91 Resp 17 B/P (MAP) 128/66 (86) Pulse Ox 95 96 O2 Delivery Nasal Cannula Nasal Cannula O2 Flow Rate 3.00 Capillary Refill : Progress Note : Progress Note VITALS ON ARRIVAL: TEMPT 36.8, HR 91, RR 17, BP 128/66, O2 SAT 96% ON 2L/NC GIVEN: -IV FLUIDS -NEB TREATMENT -ANTIBIOTICS -INSULIN + D50 -CALCIUM CARBONATE -FENTANYL LABS: -CBC WITH WBC 12.0, HGB 11.2, PLT 281,000 -CMP WITH NA 134, K 7.1, CO2 18, ANION GAP 12, BUN 116, CR 3,82, GLU 142, BG 3.3, BILI 1.6, AST 94, ALT 41, ALK PHOS 492, CK 217, CKMB 11.7, MELISSA 920, ALBUMIN 3.1 -AMMONIA 66 -LACTIC ACID 1.31 -TROPONIN 0.075, BNP 1573.3 -PT/PTT/INR--16.0,32/1.3 -ABG PH 7.32, PCO2 36, PO2 90, HCO3 18, O2 SAT 97% -UA WITH 1+ PROTEIN, 1+ BILI, 3+ LEUKOCYTES, 10-25, WBC, TNTC WBC, LARBE BACTERIA -COVID / FLU NEGATIVE EKG WITH CHRONIC ATRIAL FIBRILLATION, UNCHANGED FROM PREVIOUS CXR WITH REVIEWED PRIOR RECORDS, INCLUDING ER VISITS/ADMITS/H&P'S/CONSULTS/DISCHARGE SUMMARIES, TESTS/PROCEDURES, WELL [facility] PAPERWORK NO DETERIORATION IN PT'S CONDITION DURING ER STAY VITALS STABLE NO DYSPNEA NO HYPOXIA ECG Initial ECG Impression Date: Apr 13, 2023 Initial ECG Impression Time: 22:01 Initial ECG Rate: 94 Initial ECG Rhythm: A Fib/Flutter Initial ECG Intervals AR N/A QRS 97 QT/QTC 345/397 Initial ECG Comparisson: Unchanged Comment INTERPRETED BY ME Diagnostic Imaging Comments CXR--PER RADIOLOGIST REPORT AT 2155 FINDINGS: Increasing consolidation in the left upper lobe. Increasing interstitial prominence suspicious for interstitial edema. Cardiomegaly. Small left pleural effusion. No pneumothorax. No acute osseous findings. IMPRESSION: 1. Increasing consolidation throughout the perihilar left upper lobe suspicious for progression of the known mass versus secondary infiltrate. 2. Cardiomegaly with increasing interstitial prominence suspicious for interstitial edema. CT HEAD--PER RADIOLOGIST REPORT AT 2155 FINDINGS: Chronic lacunar infarct in the left thalamus. Advanced generalized parenchymal volume loss. No intracranial hemorrhage, mass effect, hydrocephalus or extra-axial fluid collections. No CT evidence of a territorial infarction. Paranasal sinuses and mastoids are clear. No acute osseous findings. IMPRESSION: No acute intracranial CT findings. Chronic findings as above. Reviewed: Reviewed by Me Departure Communication (Admissions) 2204--SPOKE WITH DR. NOVAK, HOSPITALIST. WILL CALL BACK WITH TEST RESULTS 2221--SPOKE WITH DR. NOVAK AGAIN, WILL REPEAT BMP AND WILL CALL DPOA. 2249--SPOKE WITH PT'S SISTER, WHO LIVES HERE IN [facility]. SHE IS DPOA ALONG WITH PT'S SON, WHO LIVES OUT OF [facility]. SHE WILL CONTACT PT'S SON AND CALL BACK 2322--CALLED PT'S SISTER, SHE HAS TALKED WITH PT'S SON. THEY AGREE THAT PT IS DNR/DNI AND DO NOT WANT AGGRESSIVE TREATMENT SUCH DIALYSIS OR TRANSFER TO ANOTHER FACILITY. 2324--SPOKE WITH DR. NOVAK AGAIN AND DISCUSSED THE ABOVE. SHE ACCEPTS PT FOR ADMIT. 2331--REPORT TO E-ICU PHYSICIAN. Impression Primary Impression: Sepsis Additional Impressions: UTI (urinary tract infection) Pneumonia Acute on chronic renal failure Acute on chronic respiratory failure Metastatic lung cancer (metastasis from lung to other site) NIDDM Chronic atrial fibrillation Generalized weakness Dementia MULTIPLE DECUBITUS ULCERS Candidal intertrigo Cancer associated pain ELEVATED LIVER ENZYMES WITH KNOWN METASTATIC LUNG CA TO LIVER Elevated troponin ELEVATED AMMONIA LEVEL Disposition: ADMITTED INPATIENT Condition: Stable Admissions Decision to Admit Reason: Admit from ER (General) Decision to Admit/Date: Apr 13, 2023 Time/Decision to Admit Time: 22:05 Departure-Patient Inst. Referrals: ELIZABETH MALDONADO DO (PCP/Family) Primary Care Physician SUPA ROLON DO Apr 13, 2023 21:38
[2023-04-13 21:48] LABS: BASOPHILS % (AUTO) 0 % (0-10); EOSINOPHILS # (AUTO) 0.1 10^3/uL (0.0-0.3); EOSINOPHILS % (AUTO) 1 % (0-10); HEMATOCRIT 37 % (35-52); HEMOGLOBIN 11.2 g/dL (11.5-16.0); LYMPHOCYTES # (AUTO) 0.5 10^3/uL (1.0-4.0); LYMPHOCYTES % (AUTO) 4 % (12-44); MEAN CORPUSCULAR HEMOGLOBIN 29 pg (25-34); MEAN CORPUSCULAR HGB CONC 30 g/dL (32-36); MEAN CORPUSCULAR VOLUME 94 fL (80-99); MEAN PLATELET VOLUME 11.6 fL (9.0-12.2); MONOCYTES # (AUTO) 0.9 10^3/uL (0.0-1.0); MONOCYTES % (AUTO) 8 % (0-12); NEUTROPHILS # (AUTO) 10.1 10^3/uL (1.8-7.8); NEUTROPHILS % (AUTO) 85 % (42-75); PLATELET COUNT 281 10^3/uL (130-400)
--- NOTE | 2023-04-13 21:54 | Diagnostic Imaging Report ---
EXAM: CHEST 1 VIEW, AP/PA ONLY INDICATION: Altered mental status. COMPARISON: CT chest 02/10/2023. FINDINGS: Increasing consolidation in the left upper lobe. Increasing interstitial prominence suspicious for interstitial edema. Cardiomegaly. Small left pleural effusion. No pneumothorax. No acute osseous findings. IMPRESSION: 1. Increasing consolidation throughout the perihilar left upper lobe suspicious for progression of the known mass versus secondary infiltrate. 2. Cardiomegaly with increasing interstitial prominence suspicious for interstitial edema. Dictated by: Dictated on workstation # [id number]
--- NOTE | 2023-04-13 21:54 | Diagnostic Imaging Report ---
PROCEDURE: CT head wo r/o stroke. TECHNIQUE: Multiple contiguous axial images were obtained through the brain without the use of intravenous contrast. Auto Exposure Controls were utilized during the CT exam to meet ALARA standards for radiation dose reduction. INDICATION: Altered mental status. Neurologic deficit. FINDINGS: Chronic lacunar infarct in the left thalamus. Advanced generalized parenchymal volume loss. No intracranial hemorrhage, mass effect, hydrocephalus or extra-axial fluid collections. No CT evidence of a territorial infarction. Paranasal sinuses and mastoids are clear. No acute osseous findings. IMPRESSION: No acute intracranial CT findings. Chronic findings as above. Dictated by: Dictated on workstation # [id number]
[2023-04-13 21:56] LABS: COLOR,URINE YELLOW
[2023-04-13 21:57] LABS: BILIRUBIN,URINE 1+ (NEGATIVE); CLARITY,URINE CLOUDY; GLUCOSE, URINE (UA) NEGATIVE (NEGATIVE); KETONES,URINE NEGATIVE (NEGATIVE); LEUKOCYTE ESTERASE ,URINE 3+ (NEGATIVE); NITRITE,URINE NEGATIVE (NEGATIVE); PH,URINE 5.5 (5-9); PROTEIN,URINE 1+ (NEGATIVE); WBC,URINE TNTC /HPF
[2023-04-13 21:58] LABS: BACTERIA,URINE LARGE /HPF
[2023-04-13 22:00] LABS: INR 1.3 (0.8-1.4)
[2023-04-13 22:11] LABS: ALBUMIN 3.1 GM/DL (3.2-4.5); BILIRUBIN,TOTAL 1.6 MG/DL (0.1-1.0); CALCIUM 8.8 MG/DL (8.5-10.1); CREATININE SERUM 3.82 MG/DL (0.60-1.30); MAGNESIUM 3.3 MG/DL (1.6-2.4); TOTAL PROTEIN 6.2 GM/DL (6.4-8.2)
[2023-04-13 22:14] LABS: ABG OXYGEN SATURATION 97 % (94-100); ABG PCO2 36 MMHG (35-45); ABG PO2 90 MMHG (79-93); ABG TCO2 19.1 MMOL/L (21.0-31.0); ALLENS TEST YES-POS; INSPIRED O2 3L; VENTILATOR NO
[2023-04-13 22:15] LABS: ABG PH 7.32 (7.37-7.43)
[2023-04-13] MEDS ORDERED: RT-BUDESONIDE NEBS 0.5 MG/2ML VIAL INH ONE (22:15)
[2023-04-13] MEDS ORDERED: fentaNYL INJECTION 100 MCG/2 ML VIAL IVP ONE (22:15)
[2023-04-13] MEDS ORDERED: RT-Ipratropium/Albuterol NEB 3 ML VIAL INH ONE (22:15)
[2023-04-13 22:17] LABS: POTASSIUM 7.1 MMOL/L (3.6-5.0)
[2023-04-13] MEDS ORDERED: RT-ALBUTEROL SULF 2.5 MG/3 ML PRE-MIX VIAL INH STA (22:17)
[2023-04-13 22:23] LABS: BAND NEUTROPHILS 5 %; HYPOCHROMASIA SLIGHT; LYMPHOCYTES % (MANUAL) 1 %; MICROCYTOSIS SLIGHT; MONOCYTES % (MANUAL) 4 %; NEUTROPHILS % (MANUAL) 90 %; NUCLEATED RED BLOOD CELLS 3; TSH (THYROID ANALYZER) 0.66 UIU/ML (0.35-4.94)
[2023-04-13 22:27] LABS: CREATINE KINASE MB 11.7 NG/ML (<6.6)
[2023-04-13 22:37] LABS: CALCIUM 8.1 MG/DL (8.5-10.1)
[2023-04-13 22:41] LABS: CREATININE SERUM 3.47 MG/DL (0.60-1.30)
[2023-04-13] MEDS: VANCOMYCIN INJECTION 1,000 MG in NS (IVPB) 250 ML 250 ML IV SCH ×2 (22:45→23:49)
[2023-04-13 22:47] LABS: POTASSIUM 6.7 MMOL/L (3.6-5.0)
[2023-04-13] MEDS ORDERED: inSUlin (REGULAR) HUMAN 1 UNIT/0.01 ML (CHARGE PER UNIT) IV ONE (23:15)
[2023-04-13] MEDS ORDERED: DEXTROSE 50% 50 ML (IMS) SYR IV ONE (23:15)
[2023-04-13] MEDS ORDERED: CALCIUM CHLORIDE 1 GM/10 ML EMERGENCY SYR IV ONE (23:15)
[2023-04-14] MEDS ORDERED: fentaNYL INJECTION 100 MCG/2 ML VIAL IVP ONE (00:15)
[2023-04-14] MEDS ORDERED: NS IV 500 ML 500 ML IV PRN (01:15)
[2023-04-14] MEDS: NS IV 1000 ML 1,000 ML IV SCH ×7 (01:15→23:23)
--- NOTE | 2023-04-14 01:36 | Tele-ICU Progress Note ---
Progress Note 82F with DM, recent UTI admission, afib, CAD, HTN, CHF, metastatic lung ca, multiple decubiti, early dementia was sent from [place] for generalized weakness for several days and "not acting right" today. Has been hypoxic in the 80s today at [facility] despite increasing home O2 from 2L to 4L. - hyperkalemia: received IV cocktail and IVF. Repeat pending. Will treat PRN. - ROSAS: likely secondary to ATN from sepsis and dehydration. Volume resuscitation ongoing. Avoid hypotension and nephrotoxins. - pneumonia: likely postobstructive pneumonia. Cefepime and vanco intiated. - DM: ISS - pressure sores: wound care - In ED family made patient DNR/DNI, with plans to consider palliative care in the next day or 2. Patient assessed via real time audiovisual communication system CCT 18 min Focused Exam Lactate Level 04/13/23 21:21: Lactic Acid Level 1.31 Height, Weight, BMI Height: 5'1.50" Weight: 191lbs. 8.0oz. 86.959724qd; 33.66 BMI Method:Stated HEIDE OWENS MD Apr 14, 2023 01:36
[2023-04-14] MEDS: VASOPRESSIN INJECTION 20 UNIT in NS (IVPB) 100 ML 100 ML IV SCH ×2 (02:00→13:59)
[2023-04-14] MEDS ORDERED: EPINEPHrine 1 MG INJECTION 4 MG in NS (IVPB) 250 ML 248 ML IV SCH (02:00)
[2023-04-14] MEDS ORDERED: ACETAMINOPHEN 650 MG SUPPOSITORY PR PRN (02:00)
[2023-04-14] MEDS ORDERED: ONDANSETRON 4 MG/2 ML (SDV) Z0FRAN IV PRN (02:00)
[2023-04-14] MEDS: NOREPINEPHRINE 8 MG/250 ML 250 ML IV SCH ×2 (02:29→18:03)
[2023-04-14] MEDS ORDERED: NOREPINEPHRINE 8 MG/250 ML 250 ML IV SCH (02:30)
[2023-04-14 04:32] LABS: BASOPHILS # (AUTO) 0.1 10^3/uL (0.0-0.1); BASOPHILS % (AUTO) 1 % (0-10); EOSINOPHILS % (AUTO) 0 % (0-10); HEMATOCRIT 36 % (35-52); HEMOGLOBIN 11.1 g/dL (11.5-16.0); LYMPHOCYTES # (AUTO) 0.7 10^3/uL (1.0-4.0); LYMPHOCYTES % (AUTO) 5 % (12-44); MEAN CORPUSCULAR HEMOGLOBIN 29 pg (25-34); MEAN CORPUSCULAR HGB CONC 31 g/dL (32-36); MEAN CORPUSCULAR VOLUME 95 fL (80-99); MEAN PLATELET VOLUME 11.1 fL (9.0-12.2); MONOCYTES # (AUTO) 1.5 10^3/uL (0.0-1.0); MONOCYTES % (AUTO) 11 % (0-12); NEUTROPHILS # (AUTO) 11.1 10^3/uL (1.8-7.8); NEUTROPHILS % (AUTO) 79 % (42-75); PLATELET COUNT 279 10^3/uL (130-400)
[2023-04-14 04:48] LABS: CALCIUM 9.2 MG/DL (8.5-10.1)
[2023-04-14 04:52] LABS: CREATININE SERUM 3.32 MG/DL (0.60-1.30); PHOSPHORUS 6.1 MG/DL (2.3-4.7)
[2023-04-14 04:54] LABS: MAGNESIUM 2.9 MG/DL (1.6-2.4)
[2023-04-14 04:57] LABS: POTASSIUM 6.7 MMOL/L (3.6-5.0)
[2023-04-14] MEDS ORDERED: CALCIUM GLUCONATE 1GM IVPB 100 ML IV STA (04:58)
[2023-04-14] MEDS ORDERED: inSUlin (REGULAR) HUMAN 1 UNIT/0.01 ML (CHARGE PER UNIT) IV ONE ×2 (05:00→12:00)
[2023-04-14] MEDS ORDERED: DEXTROSE 50% 50 ML (IMS) SYR IV ONE ×2 (05:00→12:00)
[2023-04-14] MEDS ORDERED: POTASSIUM CHLORIDE 20 MEQ TABLET PO SCH (06:00)
[2023-04-14] MEDS: inSUlin ASPART 1 UNIT/0.01 ML (PER UNIT) SC SCH ×4 (06:03→21:11)
[2023-04-14] MEDS: POTASSIUM CL 10MEQ/50ML IVPB 50 ML IV SCH (06:03)
[2023-04-14] MEDS: MAGNESIUM 1 GM/100 ML IVPB 100 ML IV SCH (06:03)
[2023-04-14] MEDS: RT-Ipratropium/Albuterol NEB 3 ML VIAL INH SCH ×5 (06:45→22:21)
[2023-04-14] MEDS ORDERED: VANCOMYCIN INJECTION 0.1 MG in NS (IVPB) 250 ML 250 ML IV SCH (08:30)
[2023-04-14] MEDS: MICONAZOLE 2% POWDER 90 GM TOP SCH ×3 (09:40→21:10)
[2023-04-14] MEDS: CEFEPIME 1,000 MG/NS 50 ML IVPB IV SCH ×4 (09:40→21:10)
--- NOTE | 2023-04-14 10:01 | Wound Care Assessment ---
Wound Care Assessment Date Seen by Provider: Apr 14, 2023 Time Seen by Provider: 09:52 Chief Complaint Stage 3 pressure ulcers sacrum and right heel HPI This 82 year old patient with known metastatic lung CA was admitted from [facility] with AMS and signs of acute respiratory failure/sepsis. She has h/o CAD with CHF and DM2 as well. She is currently on broad spectrum antibiotics and pressors. Significant renal disease with hyperkalemia as well. Poorly controlled DM2. She has several areas with full thickness pressure injuries (no deep structures visible). Family is in the process of considering palliative care and she has been made DNR/DNI status. Dressings selected for comfort. Past Medical History: Admits Diabetes Type II, Admits Heart Disease, Admits Cancer, Treaments CAD/CHF, liver metastastes with known lung CA, atrial fibrillation, acute respiratory failure, hypotension, sepsis, altered mental status Smoking Status: Former Smoker Other Social Hx Unable to obtain due to altered mental status Review of Systems Neurological: Weakness Other systems Unable to obtain due to altered mental status Exam Vital Signs Date Time Temp Pulse Resp B/P (MAP) Pulse Ox O2 Delivery O2 Flow Rate FiO2 04/14/23 09:00 123 11 119/68 (85) 95 Nasal Cannula 3.00 04/14/23 07:44 36.1 04/14/23 02:45 32 Capillary Refill : General Appearance: mild distress (anxious and calling out at times), obese Cardiovascular: no edema Respiratory: no respiratory distress, no accessory muscle use Neurologic/Psychiatric: disoriented x 3 (awake, crying out at times (with repositioning)) Skin: normal color, warm/dry Skin Character: rash (skin folds and buttock (c/w cutaneous candidiasis)) Wound assessments: 1. Right heel: 6x7x0.1cm. The epithelialization is none. There is no tunneling or undermining. Drainage is medium and serous. Granulation is small and pink. Necrotic is large and slough/eschar. Margins flat 2. Buttock/Sacrum: 4x1x0.1cm. The epithelialization is small. There is no tunneling or undermining. Drainage is large and serous. Granulation is none. Necrotic is large and slough. Margins flat Results Laboratory Tests 04/13/23 21:21: White Blood Count 12.0H, Red Blood Count 3.93, Hemoglobin 11.2L, Hematocrit 37, Mean Corpuscular Volume 94, Mean Corpuscular Hemoglobin 29, Mean Corpuscular Hemoglobin Concent 30L, Red Cell Distribution Width 21.0H, Platelet Count 281, Mean Platelet Volume 11.6, Immature Granulocyte % (Auto) 2, Neutrophils (%) (Auto) 85H, Lymphocytes (%) (Auto) 4L, Monocytes (%) (Auto) 8, Eosinophils (%) (Auto) 1, Basophils (%) (Auto) 0, Neutrophils # (Auto) 10.1H, Lymphocytes # (Auto) 0.5L, Monocytes # (Auto) 0.9, Eosinophils # (Auto) 0.1, Basophils # (Auto) 0.0, Immature Granulocyte # (Auto) 0.3H, Neutrophils % (Manual) 90, Lymphocytes % (Manual) 1, Monocytes % (Manual) 4, Band Neutrophils 5, Nucleated Red Blood Cells 3, Hypochromasia SLIGHT, Microcytosis SLIGHT, Macrocytosis SLIGHT, Prothrombin Time 16.0H, INR Comment 1.3, Activated Partial Thromboplast Time 32, Sodium Level 134L, Potassium Level 7.1*H, Chloride Level 104, Carbon Dioxide Level 18L, Anion Gap 12, Blood Urea Nitrogen 116*H, Creatinine 3.82H, Estimat Glomerular Filtration Rate 11, BUN/Creatinine Ratio 30, Glucose Level 142H, Lactic Acid Level 1.31, Calcium Level 8.8, Corrected Calcium 9.5, Magnesium Level 3.3H, Total Bilirubin 1.6H, Aspartate Amino Transf (AST/SGOT) 94H, Alanine Aminotransferase (ALT/SGPT) 41, Alkaline Phosphatase 492H, Total Creatine Kinase 213H, Creatine Kinase MB 11.7*H, Myoglobin 920.3H, Troponin I 0.075H, B-Type Natriuretic Peptide 1573.3H, Total Protein 6.2L, Albumin 3.1L, TSH [place] Testing 0.66 04/13/23 21:30: Urine Color YELLOW, Urine Clarity CLOUDY, Urine pH 5.5, Urine Specific [place] 1.020, Urine Protein 1+H, Urine Glucose (UA) NEGATIVE, Urine Ketones NEGATIVE, Urine Nitrite NEGATIVE, Urine Bilirubin 1+H, Urine Urobilinogen 2.0, Urine Leukocyte Esterase 3+H, Urine RBC (Auto) 2+H, Urine RBC 10-25H, Urine WBC TNTCH, Urine Squamous Epithelial Cells 2-5, Urine Crystals NONE, Urine Bacteria LARGEH, Urine Casts NONE, Urine Mucus NEGATIVE, Urine Culture Indicated CULTURE PENDING 04/13/23 21:33: Influenza Type A (RT-PCR) Not Detected, Influenza Type B (RT-PCR) Not Detected, SARS-CoV-2 RNA (RT-PCR) Not Detected 04/13/23 21:57: Ammonia 66H 04/13/23 22:01: Blood Gas Puncture Site R RAD, Blood Gas Patient Temperature UNK, Arterial Blood pH 7.32*L, Arterial Blood Partial Pressure CO2 36, Arterial Blood Partial Pressure O2 90, Arterial Blood HCO3 18L, Arterial Blood Total CO2 19.1L, Arterial Blood Oxygen Saturation 97, Arterial Blood Base Excess -7.0L, Trev Te [place] YES-POS, Blood Gas Ventilator Setting NO, Blood Gas Inspired Oxygen 3L 04/13/23 22:21: Sodium Level 135, Potassium Level 6.7*H, Chloride Level 107, Carbon Dioxide Level 15L, Anion Gap 13, Blood Urea Nitrogen 120*H, Creatinine 3.47H, Estimat Glomerular Filtration Rate 13, BUN/Creatinine Ratio 35, Glucose Level 135H, Calcium Level 8.1L 04/13/23 23:29: Glucometer 122H 04/14/23 01:41: Potassium Level 6.3H 04/14/23 04:06: White Blood Count 14.0H, Red Blood Count 3.82, Hemoglobin 11.1L, Hematocrit 36, Mean Corpuscular Volume 95, Mean Corpuscular Hemoglobin 29, Mean Corpuscular Hemoglobin Concent 31L, Red Cell Distribution Width 21.2H, Platelet Count 279, Mean Platelet Volume 11.1, Immature Granulocyte % (Auto) 4, Neutrophils (%) (Auto) 79H, Lymphocytes (%) (Auto) 5L, Monocytes (%) (Auto) 11, Eosinophils (%) (Auto) 0, Basophils (%) (Auto) 1, Neutrophils # (Auto) 11.1H, Lymphocytes # (Auto) 0.7L, Monocytes # (Auto) 1.5H, Eosinophils # (Auto) 0.0, Basophils # (Auto) 0.1, Immature Granulocyte # (Auto) 0.6H, Sodium Level 135, Potassium Level 6.7*H, Chloride Level 107, Carbon Dioxide Level 15L, Anion Gap 13, Blood Urea Nitrogen 114*H, Creatinine 3.32H, Estimat Glomerular Filtration Rate 13, BUN/Creatinine Ratio 34, Glucose Level 179H, Calcium Level 9.2, Phosphorus Level 6.1H, Magnesium Level 2.9H Microbiology 04/13/23 Urine Culture - Preliminary, Resulted Probable Klebsiella/Enterobact Microbiology 04/13/23 Urine Culture - Preliminary, Resulted Probable Klebsiella/Enterobact Assessment/Plan/Dx Assessment: 1. Stage 3 pressure ulcers to R. heel and sacrum 2. MASD 3. Cut. Candidal infection 4. Generalized weakness 5. Obesity with immobility 6. Incontinence 7. End stage renal disease 8. Sepsis with altered mental status 9. Metastatic lung CA 10. CAD with h/o CHF and interstitial edema on CXR 11. DM2 Plan: 1. Soothing dressings ordered. Xeroform to heel to avoid pain with dressing changes. Barrier ointment and antifungal powder to sacrum and bordered foam dressings. Cushioning as well to alleviate pain. 2. Barrier ointment and changes to chucks/briefs as indicated 3. Miconazole powder already implemented. This infection seems to be healing already 4. Severe illness 5. Severe illness 6. Cathether currently 7. Defer to primary team. It seems end of life care being discussed 8. Defer to primary team. Endo of life care discussions 9. As above 10. As above 11. As above ISACC JIM MD Apr 14, 2023 10:01
[2023-04-14] MEDS ORDERED: FAMO20TA5 PO (10:06)
[2023-04-14] MEDS ORDERED: POTA-185 PO (10:06)
[2023-04-14] MEDS ORDERED: PANT40TA52 PO (10:06)
[2023-04-14] MEDS ORDERED: ASPI-1238 PO (10:06)
[2023-04-14] MEDS ORDERED: CHOL-34 PO (10:06)
[2023-04-14] MEDS ORDERED: FENT1PAT8 TD (10:06)
[2023-04-14] MEDS ORDERED: ONDA-105 PO (10:06)
[2023-04-14] MEDS ORDERED: GABA300C PO (10:06)
[2023-04-14] MEDS ORDERED: DIME92CR TP (10:06)
[2023-04-14] MEDS ORDERED: DAPA5TAB PO (10:06)
[2023-04-14] MEDS ORDERED: ACHD5005 PO (10:06)
[2023-04-14] MEDS ORDERED: OMEG-218 PO (10:06)
[2023-04-14] MEDS ORDERED: LOVA10TA PO (10:06)
[2023-04-14] MEDS ORDERED: NYST15PO4 TP (10:06)
[2023-04-14] MEDS ORDERED: FURO40TA4 PO (10:06)
[2023-04-14] MEDS ORDERED: ACET325T38 PO (10:06)
[2023-04-14] MEDS ORDERED: COLL2POW TOP (10:06)
[2023-04-14 11:04] LABS: CALCIUM 8.7 MG/DL (8.5-10.1)
[2023-04-14 11:09] LABS: CREATININE SERUM 3.17 MG/DL (0.60-1.30)
[2023-04-14 11:14] LABS: POTASSIUM 6.5 MMOL/L (3.6-5.0)
[2023-04-14] MEDS ORDERED: SODIUM POLYSTYRENE POWDER 15 GM BOTTLE PO ONE ×2 (12:00→17:30)
[2023-04-14] MEDS ORDERED: SODIUM BICARB 8.4% 50 MEQ/50 ML (ABBOTT) SYR IV ONE (12:00)
[2023-04-14] MEDS ORDERED: CALCIUM GLUCONATE 1GM IVPB 100 ML IV ONE (12:00)
[2023-04-14 17:40] LABS: POTASSIUM 6.2 MMOL/L (3.6-5.0)
[2023-04-14 17:57] LABS: CALCIUM 8.6 MG/DL (8.5-10.1)
[2023-04-14 18:01] LABS: CREATININE SERUM 3.08 MG/DL (0.60-1.30)
--- NOTE | 2023-04-14 19:41 | History & Physical-Hospitalist ---
History of Present Illness HPI/Chief Complaint Colleen Montoya is an 82 year old female with PMH HTN, T2DM, CHF, CAD, AFib, dementia, decubitus ulcers, CKD 4, chronic respiratory failure with hypoxia on 2 L, metastatic lung cancer to the liver, obesity, who presented with weakness. She has been at [facility]. She had not been acting herself. She had altered mental status. She was hypoxic. Upon my exam, she is unable to provide any meaningful history. Her sister and niece are present. Her sister reports that she is her DPOA. They state that she has had a signiicant decline over the past few months. Source: patient, family Exam Limitations: clinical condition Date Seen 04/14/23 Time Seen by a Provider: 10:00 Attending Physician Nilton Kyle DO PCP Admitting Physician: Julissa Goldman MD Attending Physician: Calli Dunn MD Referring Physician Date of Admission Apr 14, 2023 at 00:20 Home Medications & Allergies Home Medications Reviewed patient Home Medication Reconciliation performed by pharmacy medication reconciliations orthotics technician and/or nursing. Patients Allergies have been reviewed. Allergies Allergies Coded Allergies NKANo Known Allergies (Verified Allergy, Unknown, 03/26/06) Past [id number] Hx Patient Social History Smoking Status: Former Smoker Substance use?: Unable to obtain Alcohol Use?: Unable to obtain Immunizations Up To Date Date of Influenza Vaccine: May 28, 2018 First/Initial COVID19 Vaccinat: 02/19 Second COVID19 Vaccination Maycol: 02/19 Tetanus Booster (TDap): Unknown PED Vaccines UTD: No Date of Pneumonia Vaccine: Jul 19, 2011 Seasonal Allergies Seasonal Allergies: No Current Status Communicates: Verbally Primary Language: Greenlandic Preferred Spoken Language: Greenlandic Is interpretation needed?: No Past Medical History Surgeries: Cardiac, Coronary Stent, Orthopedic COPD Currently Using CPAP: No Currently Using BIPAP: No Atrial Fibrillation, Cardiomyopathy, Chronic Edema/Swelling, Coronary Artery Disease, Heart Attack, High Cholesterol, Hypertension, Irregular Heartbeat Dementia, Neuropathy G[employer] History: Menopausal Sexually Transmitted Disease: No HIV/AIDS: No Renal Failure Gastroesophageal Reflux, Gastrointestinal Bleed Arthritis, Chronic Back Pain Diabetes, Non-Insulin dep Cataract Loss of Vision: Denies Hearing Impairment: Denies Lung (metastatic to liver) Did You Recieve Any Treatments: No Depression Blood Disorders: Yes (anemia) Adverse Reaction/Blood Tranf: No Family Medical History Cardiovascular disease 19 FATHER 19 MOTHER FH: stroke FHx: diabetes mellitus Heart Disease, Diabetes, Hypertension 01/2019--EGD 04/2020--STRESS TEST. Review of Systems Constitutional: see HPI Physical Exam Physical Exam Vital Signs Vital Signs - First Documented 04/13/23 04/13/23 04/14/23 21:20 22:26 02:45 Temp 36.8 Pulse 91 Resp 17 B/P (MAP) 128/66 (86) Pulse Ox 95 O2 Delivery Nasal Cannula O2 Flow Rate 3.00 FiO2 32 Capillary Refill : Height, Weight, BMI Height: 5'1.50" Weight: 191lbs. 8.0oz. 86.858714ol; 33.66 BMI Method:Stated General Appearance: Mild Distress (uncomfortable), Obese HEENT: PERRL/EOMI, Pharynx Normal Neck: Normal Inspection, Supple Respiratory: No Accessory Muscle Use, No Respiratory Distress, Decreased Breath Sounds Cardiovascular: No Murmur, Tachycardia Gastrointestinal: Normal Bowel Sounds, Non Tender, Soft Extremity: Normal Inspection, Non Tender, Pedal Edema Neurologic/Psychiatric: Alert, Disoriented Skin: Warm/Dry, Pallor Results Results/Procedures Labs Laboratory Tests 04/13/23 21:21 04/13/23 22:21 04/14/23 01:41 04/14/23 04:06 04/14/23 10:48 04/14/23 17:18 Patient resulted labs reviewed. Imaging: Reviewed Imaging Report Assessment/Plan Admission Diagnosis Septic shock Admission Status: Inpatient Order (span 2 midnights) Reason for Inpatient Admission: Renal failure Assessment and Plan Septic shock Pneumonia Metastatic lung cancer to the liver Poor prognosis CXR consistent with pneumonia vs proression of malignancy, likely postob structive Blood cultures pending Vanc and Cefepime Requiring pressors IV fluids TeleICU consulted DNR/DNI ROSAS on CKD 4 Hyperkalemia Metabolic acidosis Acute metabolic encephalopathy, septic vs uremic IV fluids Pressors Potassium, BUN/Cr improved slightly from arrival T2DM Sliding scale insulin Debility Poor prognostic indicator DVT prophylaxis: Heparin Critical Care Critically Ill Patient Diagnosis/Problems Diagnosis/Problems (1) Septic shock Status: Acute (2) Pneumonia Status: Acute Qualifiers: Pneumonia type: due to unspecified organism Laterality: left Lung location: upper lobe of lung Qualified Codes: J18.9 - Pneumonia, unspecified organism (3) Acute kidney injury superimposed on chronic kidney disease Status: Acute (4) CKD (chronic kidney disease) stage 4, GFR 15-29 ml/min Status: Chronic (5) Metastatic lung cancer (metastasis from lung to other site) Status: Chronic (6) Metastasis to liver Status: Chronic (7) Obesity Status: Chronic (8) Debility Status: Acute (9) T2DM (type 2 diabetes mellitus) Status: Chronic Qualifiers: Diabetes mellitus shelter insulin use: without joint terminal attack controller use (10) Poor prognosis Status: Acute CALLI DUNN MD Apr 14, 2023 19:40
[2023-04-14] MEDS: ACETAMINOPHEN 500 MG TABLET PO PRN (22:30)
[2023-04-14 23:11] LABS: POTASSIUM 5.9 MMOL/L (3.6-5.0)
[2023-04-14 23:12] LABS: CALCIUM 8.7 MG/DL (8.5-10.1)
[2023-04-14 23:16] LABS: CREATININE SERUM 2.95 MG/DL (0.60-1.30)
[2023-04-15] MEDS: VASOPRESSIN INJECTION 20 UNIT in NS (IVPB) 100 ML 100 ML IV SCH ×3 (00:19→22:23)
[2023-04-15] MEDS: NOREPINEPHRINE 8 MG/250 ML 250 ML IV SCH (01:28)
[2023-04-15] MEDS: RT-Ipratropium/Albuterol NEB 3 ML VIAL INH SCH ×6 (02:46→22:11)
[2023-04-15 04:40] LABS: BASOPHILS # (AUTO) 0.1 10^3/uL (0.0-0.1); BASOPHILS % (AUTO) 0 % (0-10); EOSINOPHILS % (AUTO) 0 % (0-10); HEMATOCRIT 36 % (35-52); LYMPHOCYTES # (AUTO) 0.8 10^3/uL (1.0-4.0); LYMPHOCYTES % (AUTO) 6 % (12-44); MEAN CORPUSCULAR HEMOGLOBIN 29 pg (25-34); MEAN CORPUSCULAR HGB CONC 31 g/dL (32-36); MEAN CORPUSCULAR VOLUME 94 fL (80-99); MEAN PLATELET VOLUME 10.9 fL (9.0-12.2); MONOCYTES # (AUTO) 1.3 10^3/uL (0.0-1.0); MONOCYTES % (AUTO) 9 % (0-12); NEUTROPHILS # (AUTO) 11.7 10^3/uL (1.8-7.8); NEUTROPHILS % (AUTO) 81 % (42-75); PLATELET COUNT 252 10^3/uL (130-400); WHITE BLOOD COUNT 14.4 10^3/uL (4.3-11.0)
[2023-04-15 04:53] LABS: POTASSIUM 6.2 MMOL/L (3.6-5.0)
[2023-04-15 04:54] LABS: CALCIUM 8.6 MG/DL (8.5-10.1)
[2023-04-15 04:58] LABS: CREATININE SERUM 2.94 MG/DL (0.60-1.30); PHOSPHORUS 5.4 MG/DL (2.3-4.7)
[2023-04-15 05:01] LABS: MAGNESIUM 2.7 MG/DL (1.6-2.4)
[2023-04-15] MEDS: NS IV 1000 ML 1,000 ML IV SCH ×5 (06:25→22:50)
[2023-04-15] MEDS: inSUlin ASPART 1 UNIT/0.01 ML (PER UNIT) SC SCH ×4 (06:26→20:07)
[2023-04-15] MEDS: MAGNESIUM 1 GM/100 ML IVPB 100 ML IV SCH (06:26)
[2023-04-15] MEDS: POTASSIUM CL 10MEQ/50ML IVPB 50 ML IV SCH (06:26)
[2023-04-15] MEDS: ACETAMINOPHEN 500 MG TABLET PO PRN (07:26)
[2023-04-15] MEDS ORDERED: TROUGH ORDER-PHARMACY XX ONE (08:00)
[2023-04-15] MEDS: MICONAZOLE 2% POWDER 90 GM TOP SCH ×3 (08:33→20:10)
[2023-04-15] MEDS ORDERED: VANCOMYCIN 1250 MG/NS 250 ML PREMIX IV SCH (09:00)
[2023-04-15] MEDS: CEFEPIME 1,000 MG/NS 50 ML IVPB IV SCH ×2 (10:15)
--- NOTE | 2023-04-15 10:49 | Tele-ICU Progress Note ---
Subjective Date Seen by a Provider: Apr 15, 2023 Time Seen by a Provider: 10:48 Subjective/Events-last exam (Tele-ICU Physician , Progress Note ) Service provided via interactive audio and video telecommunications E-CARE system to a patient admitted to ICU bed in [facility]. Patient is seen today due to persistent need of ICU care Available chart/ vitals / labs / Images reviewed Video assessment done using teleICU camera, rest of exam as per RN Discussed with RN Events overnight : Afebrile hemodynamically stable Respiratory - I/O = Drips: Pressors- no Hospital course: A/P Shock - presumed septic -NS 150 - levo OFF - ABX started - follow cx Hypoxia - on 3 L , monitor - idf need more O2 , consider stop IVF - diuretics TME - more awake , but confused ROSAS/CKD with hyperkalemia - received kayaxalate and IV TX - follow K - cont hydration , monitor UO Wound . pressure ulcers - as per wound care DM-II - iss Chronic diastolic CHF, CAD- in - Echo of Apr 24, 2020 showed LVEF 50-55%, LA mod dilated; mildly calcified mitral annulus with mild MR; AoV thickening, consistent with sclerosis; RVSP 30 mmHg A FIB - rate >110 -not on AC with h/o GIB T2DM - ISS Lines : periph , (Central Line Necessity Reviewed) Camacho:+ OG: Nutrition: po Analgesia: Anxiety/ delirium VTE Prophylaxis: hep 5K Stress Ulcer Prophylaxis: na Plans in collaboration with bedside consultants and IM MDs. Discussed with RN to reach out if any questions or concerns Case and care daily discussed on multidisciplinary rounds ( RN, PharmD, Veneer Puller , Respiratory Therapy, mechanical repair worker ) A total of 31 minutes of critical care time was devoted to this patient today, required to treat and/or prevent further deterioration of critical care condition ( as above ) . I am remotely monitoring this patient from another state. I am unable to do the bedside exam, and history/physical and pertinent information is taken from other notes in the computer and bedside staff. Sepsis Event Evaluation Height, Weight, BMI Height: 5'1.50" Weight: 191lbs. 8.0oz. 86.412990ow; 38.09 BMI Method:Stated Focused Exam Lactate Level 04/13/23 21:21: Lactic Acid Level 1.31 Exam Exam Patient acknowledged, consented, and participated in this virtual visit which was conducted using real time audio/video Vital Signs Date Time Temp Pulse Resp B/P (MAP) Pulse Ox O2 Delivery O2 Flow Rate FiO2 04/15/23 10:00 105 12 83/53 (63) 96 Nasal Cannula 2.00 04/15/23 09:00 105 17 96/59 (71) 95 Nasal Cannula 2.00 04/15/23 08:00 112 21 103/62 (76) 95 Nasal Cannula 2.00 04/15/23 08:00 95 Nasal Cannula 3.00 04/15/23 07:50 36.5 04/15/23 07:15 141 22 105/68 (80) 96 Nasal Cannula 2.00 04/15/23 07:13 110 04/15/23 07:05 96 Nasal Cannula 3.00 04/15/23 07:00 120 15 96 Nasal Cannula 2.00 04/15/23 06:15 105 20 98/61 (74) 96 Nasal Cannula 2.00 04/15/23 06:03 112 17 101/77 (85) 96 Nasal Cannula 2.00 04/15/23 06:00 124 13 72/42 (60) 96 Nasal Cannula 2.00 04/15/23 05:45 122 14 76/37 (51) 96 Nasal Cannula 2.00 04/15/23 05:35 140 10 79/46 (54) 96 Nasal Cannula 2.00 04/15/23 05:30 130 12 68/50 (54) 96 Nasal Cannula 2.00 04/15/23 05:15 135 12 80/55 (67) 96 Nasal Cannula 2.00 04/15/23 05:00 126 10 97/55 (62) 96 Nasal Cannula 2.00 04/15/23 04:45 134 12 90/62 (80) 96 Nasal Cannula 2.00 04/15/23 04:30 135 14 93/44 (60) 96 Nasal Cannula 2.00 04/15/23 04:00 95 Nasal Cannula 3.00 04/15/23 03:00 125 15 103/75 (84) 96 Nasal Cannula 2.00 04/15/23 02:48 96 Nasal Cannula 3.00 04/15/23 02:20 126 11 92/62 (72) 94 Nasal Cannula 2.00 04/15/23 01:28 116 117/89 8/15/23 01:15 118 12 117/89 (98) 93 Nasal Cannula 2.00 04/15/23 01:00 110 10 99/61 (74) 92 Nasal Cannula 2.00 04/15/23 01:00 128 04/15/23 00:20 96 Nasal Cannula 3.00 04/15/23 00:19 133 97/57 04/15/23 00:00 126 18 133/79 (97) 89 Nasal Cannula 2.00 04/14/23 23:00 137 18 122/87 (99) 95 Nasal Cannula 2.00 04/14/23 22:22 97 Nasal Cannula 3.00 04/14/23 22:00 124 15 128/94 (105) 94 Nasal Cannula 2.00 04/14/23 21:15 130 10 99/56 (70) 96 Nasal Cannula 2.00 04/14/23 21:00 122 14 99/47 (64) 96 Nasal Cannula 2.00 04/14/23 20:03 36.4 04/14/23 20:00 95 Nasal Cannula 3.00 04/14/23 20:00 142 11 113/49 (70) 97 Nasal Cannula 2.00 04/14/23 19:00 133 13 110/73 (85) 96 Nasal Cannula 2.00 04/14/23 19:00 133 04/14/23 18:51 97 Nasal Cannula 3.00 04/14/23 18:03 120 97/57 04/14/23 18:00 118 12 102/54 (70) 97 Nasal Cannula 2.00 04/14/23 17:00 112 10 109/52 (71) 96 Nasal Cannula 2.00 04/14/23 16:07 36.7 04/14/23 16:00 101 10 98/55 (69) 97 Nasal Cannula 2.00 04/14/23 15:45 97 Nasal Cannula 3.00 04/14/23 15:00 120 10 97/57 (70) 97 Nasal Cannula 2.00 04/14/23 14:25 96 Nasal Cannula 3.00 04/14/23 14:00 104 10 87/57 (67) 97 Nasal Cannula 2.00 04/14/23 13:59 110 132/83 04/14/23 13:00 146 10 112/63 (79) 96 Nasal Cannula 2.00 04/14/23 12:54 110 04/14/23 12:06 36.3 04/14/23 12:00 111 12 132/83 (99) 97 Nasal Cannula 2.00 04/14/23 12:00 94 Nasal Cannula 3.00 04/14/23 11:00 105 10 114/61 (78) 96 Nasal Cannula 2.00 I & O 04/15/23 07:00 Intake Total 2840 ml Output Total 625 ml Balance 2215 ml Height & Weight Height: 5'1.50" Weight: 191lbs. 8.0oz. 86.942825vk; 38.09 BMI Method:Stated General Appearance: Mild Distress (uncomfortable), Obese HEENT: PERRL/EOMI, Pharynx Normal Neck: Normal Inspection, Supple Respiratory: No Accessory Muscle Use, No Respiratory Distress, Decreased Breath Sounds Cardiovascular: No Murmur, Tachycardia Extremity: Normal Inspection, Non Tender, Pedal Edema Neurologic/Psychiatric: Alert, Disoriented Skin: Warm/Dry, Pallor Results Lab Laboratory Tests 04/13/23 21:21 04/13/23 22:21 04/14/23 01:41 04/14/23 04:06 04/14/23 10:48 04/14/23 17:18 04/14/23 22:55 04/15/23 04:26 Assessment/Plan Assessment/Plan 1 ELIU MCALLISTER MD Apr 15, 2023 10:49
[2023-04-15 11:21] LABS: CALCIUM 8.2 MG/DL (8.5-10.1); CREATININE SERUM 2.93 MG/DL (0.60-1.30); POTASSIUM 5.8 MMOL/L (3.6-5.0)
[2023-04-15] MEDS ORDERED: cefTRIAXone INJECTION 2,000 MG in NS (IVPB) 50 ML 50 ML IV SCH (18:00)
--- NOTE | 2023-04-15 18:01 | Progress Note - Hospitalist ---
Subjective HPI/CC On Admission Date Seen by Provider: Apr 15, 2023 Time Seen by Provider: 09:20 Colleen Montoya is an 82 year old female with PMH HTN, T2DM, CHF, CAD, AFib, dementia, decubitus ulcers, CKD 4, chronic respiratory failure with hypoxia on 2 L, metastatic lung cancer to the liver, obesity, who presented with weakness. She has been at [facility]. She had not been acting herself. She had altered mental status. She was hypoxic. Upon my exam, she is unable to provide any meaningful history. Her sister and niece are present. Her sister reports that she is her DPOA. They state that she has had a signiicant decline over the past few months. Subjective/Events-last exam She remains confused. She denies pain. She is sleeping. Her niece is at the bedside. Focused Exam Lactate Level 04/13/23 21:21: Lactic Acid Level 1.31 Objective Exam Vital Signs Vital Signs Date Time Temp Pulse Resp B/P (MAP) Pulse Ox O2 Delivery O2 Flow Rate FiO2 04/15/23 17:00 122 17 95/64 (74) 96 Nasal Cannula 2.00 04/15/23 16:00 36.2 04/14/23 02:45 32 Capillary Refill : General Appearance: No Apparent Distress, Chronically ill, Obese Respiratory: No Respiratory Distress, Decreased Breath Sounds Cardiovascular: No Murmur, Tachycardia Extremity: No Inflammation; Pedal Edema Neurologic/Psychiatric: Alert, Disoriented, Motor Weakness Results/Procedures Lab Laboratory Tests 04/14/23 22:55 04/15/23 04:26 04/15/23 10:55 Patient resulted labs reviewed. Imaging: Reviewed Imaging Report Assessment/Plan Assessment and Plan Assess & Plan/Chief Complaint Septic shock Pneumonia UTI Metastatic lung cancer to the liver Poor prognosis CXR consistent with pneumonia vs proression of malignancy, likely postobstructive Blood cultures with no growth Urine culture with Citrobacter Stop Vanc and Cefepime Begin Rocephin Off pressors this morning IV fluids TeleICU following DNR/DNI Again discussed poor prognosis with family, may soon need hospice/comfort measures ROSAS on CKD 4 Hyperkalemia Metabolic acidosis Acute metabolic encephalopathy, septic vs uremic Renal function stable, poor IV fluids T2DM Sliding scale insulin Debility Poor prognostic indicator DVT prophylaxis: Heparin Critical Care Critically Ill Patient Diagnosis/Problems Diagnosis/Problems (1) Septic shock Status: Acute (2) Pneumonia Status: Acute Qualifiers: Pneumonia type: due to unspecified organism Laterality: left Lung location: upper lobe of lung Qualified Codes: J18.9 - Pneumonia, unspecified organism (3) Acute kidney injury superimposed on chronic kidney disease Status: Acute (4) CKD (chronic kidney disease) stage 4, GFR 15-29 ml/min Status: Chronic (5) Metastatic lung cancer (metastasis from lung to other site) Status: Chronic (6) Metastasis to liver Status: Chronic (7) Obesity Status: Chronic (8) Debility Status: Acute (9) T2DM (type 2 diabetes mellitus) Status: Chronic Qualifiers: Diabetes mellitus director long term care insulin use: without senior care use (10) Poor prognosis Status: Acute CALLI DUNN MD Apr 15, 2023 18:01
[2023-04-16 02:00] VITALS: BP 122/71
[2023-04-16] MEDS: NOREPINEPHRINE 8 MG/250 ML 250 ML IV SCH (02:00)
[2023-04-16] MEDS: RT-Ipratropium/Albuterol NEB 3 ML VIAL INH SCH ×4 (02:23→14:19)
[2023-04-16] MEDS: NS IV 1000 ML 1,000 ML IV SCH ×5 (03:00→14:25)
[2023-04-16 04:19] LABS: BASOPHILS % (AUTO) 0 % (0-10); EOSINOPHILS # (AUTO) 0.1 10^3/uL (0.0-0.3); EOSINOPHILS % (AUTO) 0 % (0-10); HEMATOCRIT 34 % (35-52); HEMOGLOBIN 10.4 g/dL (11.5-16.0); LYMPHOCYTES # (AUTO) 0.6 10^3/uL (1.0-4.0); LYMPHOCYTES % (AUTO) 5 % (12-44); MEAN CORPUSCULAR HEMOGLOBIN 29 pg (25-34); MEAN CORPUSCULAR HGB CONC 30 g/dL (32-36); MEAN CORPUSCULAR VOLUME 95 fL (80-99); MEAN PLATELET VOLUME 11.2 fL (9.0-12.2); MONOCYTES # (AUTO) 1.2 10^3/uL (0.0-1.0); MONOCYTES % (AUTO) 10 % (0-12); NEUTROPHILS # (AUTO) 10.1 10^3/uL (1.8-7.8); NEUTROPHILS % (AUTO) 81 % (42-75); PLATELET COUNT 218 10^3/uL (130-400); WHITE BLOOD COUNT 12.6 10^3/uL (4.3-11.0)
[2023-04-16 04:30] LABS: POTASSIUM 5.8 MMOL/L (3.6-5.0)
[2023-04-16 04:32] LABS: CALCIUM 8.1 MG/DL (8.5-10.1)
[2023-04-16 04:36] LABS: CREATININE SERUM 2.83 MG/DL (0.60-1.30); PHOSPHORUS 5.1 MG/DL (2.3-4.7)
[2023-04-16 04:38] LABS: MAGNESIUM 2.7 MG/DL (1.6-2.4)
[2023-04-16] MEDS: POTASSIUM CL 10MEQ/50ML IVPB 50 ML IV SCH (06:25)
[2023-04-16] MEDS: inSUlin ASPART 1 UNIT/0.01 ML (PER UNIT) SC SCH ×2 (06:25→10:51)
[2023-04-16] MEDS: MAGNESIUM 1 GM/100 ML IVPB 100 ML IV SCH (06:25)
[2023-04-16] MEDS ORDERED: SODIUM POLYSTYRENE POWDER 15 GM BOTTLE PO ONE (07:15)
[2023-04-16] MEDS: SODIUM BICARBONATE 650 MG TABLET PO SCH ×2 (10:06→12:40)
[2023-04-16] MEDS: fentaNYL INJECTION 100 MCG/2 ML VIAL IV PRN ×2 (10:06→12:40)
[2023-04-16] MEDS: MICONAZOLE 2% POWDER 90 GM TOP SCH ×2 (10:07→13:54)
[2023-04-16] MEDS: VASOPRESSIN INJECTION 20 UNIT in NS (IVPB) 100 ML 100 ML IV SCH (10:18)
--- NOTE | 2023-04-16 12:42 | Tele-ICU Progress Note ---
Subjective Date Seen by a Provider: Apr 16, 2023 Time Seen by a Provider: 12:41 Subjective/Events-last exam (Tele-ICU Physician , Progress Note ) Service provided via interactive audio and video telecommunications [employer] s te to a patient admitted to ICU bed in [facility]. Patient is seen today due to persistent need of ICU care Available chart/ vitals / labs / Images reviewed Video assessment done using teleICU camera, rest of exam as per RN She is a 82-year-old female with past medical history of metastatic lung cancer with mets to the liver, atrial fibrillation, coronary artery disease and congestive heart failure, CKD stage IV with dementia admitted to the emergency room because of for worsening altered mental status and hypoxia. She was already on home oxygen 2 L nasal cannula. She is found to have a wart suspected to be a pneumonia and possibly urinary tract infection with the septic shock. Her BUN/creatinine gotten worsened. She has a hyperkalemia. She is now being oxygenated with nasal cannula. Impression #1 1. Possible pneumonia with hypoxia 2. Gram-negative urinary tract infection with Citrobacter 3. Acute and chronic kidney disease with hyperkalemia 4. Atrial fibrillation with fairly controlled ventricular rate 5. Worsening altered mental status due to sepsis. Recommendations 1. Continue hydration but will decrease IV fluids to 100 cc an hour as she does not have much urine output 2. We will give Kayexalate and repeat a BMP 3. IV antibiotics per primary care physician 4. DVT prophylaxis. Her overall prognosis is poor Coordination of care with primary care physician and bedside consultants. I am remotely monitoring this patient from Tele icu station in [place]. I am unable to do the bedside exam, and history/physical and pertinent information is taken from other notes in the computer and bedside staff. Certain portions of this document may have been dictated utilizing voice recognition technology such as Nu-Pulse. Inherent to this technology, typographical and grammatical errors may exist. As much as I am diligent to identify and correct to these mistakes, some errors may remain in the document. Critical care time devoted to this patient today is approximately is--25 minutes Sepsis Event Evaluation Height, Weight, BMI Height: 5'1.50" Weight: 191lbs. 8.0oz. [id number]; 38.09 BMI Method:Stated Focused Exam Lactate Level 8/13/23 21:21: Lactic Acid Level 1.31 Exam Exam Patient acknowledged, consented, and participated in this virtual visit which was conducted using real time audio/video Vital Signs Date Time Temp Pulse Resp B/P (MAP) Pulse Ox O2 Delivery O2 Flow Rate FiO2 04/16/23 12:00 97 Nasal Cannula 3.00 04/16/23 11:51 36.1 Nasal Cannula 2.00 04/16/23 11:00 106 16 109/76 (87) 96 Nasal Cannula 2.00 04/16/23 10:25 96 Nasal Cannula 2.00 04/16/23 10:00 115 18 101/68 (79) 93 Nasal Cannula 2.00 04/16/23 09:00 102 15 114/80 (91) 97 Nasal Cannula 2.00 04/16/23 08:00 104 16 105/59 (74) 96 Nasal Cannula 2.00 04/16/23 08:00 97 Nasal Cannula 3.00 04/16/23 07:32 101 04/16/23 07:30 36.4 Nasal Cannula 2.00 04/16/23 07:15 96 Nasal Cannula 2.00 04/16/23 07:00 112 11 109/50 (69) 95 Nasal Cannula 2.00 04/16/23 06:30 99 16 104/56 (72) 95 Nasal Cannula 2.00 04/16/23 05:00 126 13 110/77 (88) 95 Nasal Cannula 2.00 04/16/23 04:15 98 17 122/71 (88) 95 Nasal Cannula 2.00 04/16/23 03:52 98 Nasal Cannula 3.00 04/16/23 03:00 117 22 111/85 (94) 94 Nasal Cannula 2.00 04/16/23 02:25 95 Nasal Cannula 2.00 04/16/23 02:00 101 14 102/74 (83) 95 Nasal Cannula 2.00 04/16/23 02:00 98 122/71 04/16/23 01:45 98 12 95/52 (66) 95 Nasal Cannula 2.00 04/16/23 01:00 101 04/16/23 01:00 101 12 90/51 (64) 95 Nasal Cannula 2.00 04/16/23 00:30 109 11 97/53 (68) 96 Nasal Cannula 2.00 04/16/23 00:00 98 12 84/61 (69) 95 Nasal Cannula 2.00 04/16/23 00:00 95 Nasal Cannula 3.00 04/15/23 23:00 97 22 96/56 (69) 95 Nasal Cannula 2.00 04/15/23 22:30 113 19 106/57 (73) 95 Nasal Cannula 2.00 04/15/23 22:23 105 103/70 04/15/23 22:12 95 Nasal Cannula 2.00 04/15/23 21:15 110 14 102/54 (70) 95 Nasal Cannula 2.00 04/15/23 20:30 112 11 102/54 (70) 95 Nasal Cannula 2.00 04/15/23 19:57 96 Nasal Cannula 3.00 04/15/23 19:00 104 12 94/58 (70) 96 Nasal Cannula 2.00 04/15/23 19:00 104 04/15/23 18:49 95 Nasal Cannula 2.00 04/15/23 18:00 105 16 103/70 (81) 95 Nasal Cannula 2.00 04/15/23 17:00 122 17 95/64 (74) 96 Nasal Cannula 2.00 04/15/23 16:00 36.2 04/15/23 16:00 110 25 83/54 (64) 95 Nasal Cannula 2.00 04/15/23 15:58 95 Nasal Cannula 3.00 04/15/23 15:00 118 16 96/61 (73) 97 Nasal Cannula 2.00 04/15/23 14:00 104 19 93/64 (74) 94 Nasal Cannula 2.00 04/15/23 13:19 112 04/15/23 13:00 98 15 98/66 (77) 96 Nasal Cannula 2.00 I & O 04/16/23 07:00 Intake Total 1450 ml Output Total 550 ml Balance 900 ml Height & Weight Height: 5'1.50" Weight: 191lbs. 8.0oz. 86.987512qi; 38.09 BMI Method:Stated General Appearance: No Apparent Distress, Chronically ill, Obese HEENT: PERRL/EOMI, Pharynx Normal Neck: Normal Inspection, Supple Respiratory: No Respiratory Distress, Decreased Breath Sounds Cardiovascular: No Murmur, Tachycardia Extremity: No Inflammation; Pedal Edema Neurologic/Psychiatric: Alert, Disoriented, Motor Weakness Skin: Warm/Dry, Pallor Results Lab Laboratory Tests 04/14/23 17:18 8/14/23 22:55 04/15/23 04:26 04/15/23 10:55 04/16/23 03:59 Assessment/Plan Assessment/Plan as above Critical Care: Critically Ill Patient Time spent with patient (mins): 25 NENO FUENTES MD Apr 16, 2023 12:42
[2023-04-16] MEDS ORDERED: CALCIUM ACETATE 667 MG CAP (PHOSLO) PO SCH (13:00)
[2023-04-16] MEDS ORDERED: PROMETHAZINE INJ 25 MG/ML (PHENERGAN) AMP IVP PRN (14:45)
[2023-04-16] MEDS ORDERED: SALIVA SUBSTITUTE 60 ML SPRAY MM PRN (14:45)
[2023-04-16] MEDS ORDERED: BISACODYL 10 MG SUPPOSITORY PR PRN (14:45)
[2023-04-16] MEDS ORDERED: ONDANSETRON 4 MG/2 ML (SDV) Z0FRAN IVP PRN (14:45)
[2023-04-16] MEDS ORDERED: RT-Ipratropium/Albuterol NEB 3 ML VIAL INH PRN (14:45)
[2023-04-16] MEDS ORDERED: LORazepam 1 MG TABLET SL PRN (14:45)
[2023-04-16] MEDS ORDERED: ARTIFICAL TEARS Ophth solution 0.4 ML UNIT DOSE OU PRN (14:45)
[2023-04-16] MEDS ORDERED: morphine INJ 4 MG/ML 1 ML (VIAL/SYRINGE) IV PRN (14:45)
[2023-04-16] MEDS ORDERED: ACETAMINOPHEN 650 MG SUPPOSITORY PR PRN (14:45)
[2023-04-16] MEDS ORDERED: GLYCOPYRROLATE INJ 0.2 MG/ML 2 ML VIAL IV PRN (14:45)
[2023-04-16] MEDS ORDERED: LORazepam ORAL CONCENTRATE 2 MG/ML 30 ML PO PRN (14:45)
--- NOTE | 2023-04-16 14:47 | Progress Note - Hospitalist ---
Subjective HPI/CC On Admission Date Seen by Provider: Apr 16, 2023 Time Seen by Provider: 09:55 Colleen Montoya is an 82 year old female with PMH HTN, T2DM, CHF, CAD, AFib, dementia, decubitus ulcers, CKD 4, chronic respiratory failure with hypoxia on 2 L, metastatic lung cancer to the liver, obesity, who presented with weakness. She has been at [facility]. She had not been acting herself. She had altered mental status. She was hypoxic. Upon my exam, she is unable to provide any meaningful history. Her sister and niece are present. Her sister reports that she is her DPOA. They state that she has had a signiicant decline over the past few months. Subjective/Events-last exam She is uncomfortable. She is in pain. She says she wants to be comfortable. Her family has elected to transition to comfort measures only status. Focused Exam Lactate Level 04/13/23 21:21: Lactic Acid Level 1.31 Objective Exam Vital Signs Vital Signs Date Time Temp Pulse Resp B/P (MAP) Pulse Ox O2 Delivery O2 Flow Rate FiO2 04/16/23 14:21 96 Nasal Cannula 2.00 04/16/23 13:47 36.1 04/16/23 12:44 116 04/16/23 12:00 12 121/80 (94) 04/14/23 02:45 32 Capillary Refill : General Appearance: Chronically ill, Moderate Distress (uncomfortable), Obese Respiratory: No Respiratory Distress, Decreased Breath Sounds Cardiovascular: No Murmur, Tachycardia Gastrointestinal: Normal Bowel Sounds, Soft Extremity: Non Tender, Pedal Edema Neurologic/Psychiatric: Alert, Motor Weakness Results/Procedures Lab Laboratory Tests 04/16/23 03:59 Patient resulted labs reviewed. Imaging: Reviewed Imaging Report Assessment/Plan Assessment and Plan Assess & Plan/Chief Complaint Septic shock Pneumonia UTI Metastatic lung cancer to the liver Poor prognosis ROSAS on CKD 4 Hyperkalemia Metabolic acidosis Acute metabolic encephalopathy, septic vs uremic T2DM Debility Comfort measures only status Transition to comfort measures Comfort care order set Transfer to 4th floor Critical Care Critically Ill Patient Diagnosis/Problems Diagnosis/Problems (1) Septic shock Status: Acute (2) Pneumonia Status: Acute Qualifiers: Pneumonia type: due to unspecified organism Laterality: left Lung location: upper lobe of lung Qualified Codes: J18.9 - Pneumonia, unspecified organism (3) Acute kidney injury superimposed on chronic kidney disease Status: Acute (4) CKD (chronic kidney disease) stage 4, GFR 15-29 ml/min Status: Chronic (5) Metastatic lung cancer (metastasis from lung to other site) Status: Chronic (6) Metastasis to liver Status: Chronic (7) Obesity Status: Chronic (8) Debility Status: Acute (9) T2DM (type 2 diabetes mellitus) Status: Chronic Qualifiers: Diabetes mellitus senior care insulin use: without staffing program manager use (10) Poor prognosis Status: Acute (11) Comfort measures only status Status: Acute CALLI DUNN MD Apr 16, 2023 14:47
--- NOTE | 2023-04-16 15:32 | Diagnostic Imaging Report ---
PROCEDURE: US Renal Bilateral. TECHNIQUE: Multiple real-time grayscale images were obtained over the kidneys in various projections bilaterally. INDICATION: Decreased urine output. FINDINGS: Right kidney measures 9.2 x 4.7 x 4.5 cm and the left kidney measures 9.5 x 5.3 x 5.1 cm. There appears to be some cortical thinning bilaterally. Cortical echogenicity appears normal. No calculi are seen. There is no hydronephrosis. Bladder is decompressed by Camacho catheter. IMPRESSION: Cortical thinning bilaterally. No hydronephrosis is detected. Dictated by: Dictated on workstation # [id number]
[2023-04-16] MEDS: morphine INJ 4 MG/ML 1 ML (VIAL/SYRINGE) IV PRN (21:13)
--- NOTE | 2023-04-17 15:04 | Progress Note - Hospitalist ---
Subjective HPI/CC On Admission Date Seen by Provider: Apr 17, 2023 Time Seen by Provider: 09:40 Colleen Montoya is an 82 year old female with PMH HTN, T2DM, CHF, CAD, AFib, dementia, decubitus ulcers, CKD 4, chronic respiratory failure with hypoxia on 2 L, metastatic lung cancer to the liver, obesity, who presented with weakness. She has been at [facility]. She had not been acting herself. She had altered mental status. She was hypoxic. Upon my exam, she is unable to provide any meaningful history. Her sister and niece are present. Her sister reports that she is her DPOA. They state that she has had a signiicant decline over the past few months. Subjective/Events-last exam She is laying in bed. She denies pain. Her family says she was just saying she had pain in her side. She says she is not thirsty, but then asks for iced tea. Objective Exam Vital Signs Vital Signs Date Time Temp Pulse Resp B/P (MAP) Pulse Ox O2 Delivery O2 Flow Rate FiO2 04/17/23 08:00 Room Air 04/17/23 07:34 0.00 04/16/23 20:20 98 04/16/23 15:00 118 23 98/80 (86) 04/16/23 13:47 36.1 04/14/23 02:45 32 Capillary Refill : General Appearance: No Apparent Distress, Chronically ill, Obese Respiratory: No Respiratory Distress, Decreased Breath Sounds Cardiovascular: Regular Rate, Rhythm, No Murmur Gastrointestinal: Normal Bowel Sounds, Soft Extremity: Normal Inspection, No Pedal Edema Neurologic/Psychiatric: Alert, Normal Mood/Affect Skin: Normal Color, Warm/Dry Results/Procedures Lab Patient resulted labs reviewed. Imaging: Reviewed Imaging Report Assessment/Plan Assessment and Plan Assess & Plan/Chief Complaint Septic shock Pneumonia UTI Metastatic lung cancer to the liver Poor prognosis ROSAS on CKD 4 Hyperkalemia Metabolic acidosis Acute metabolic encephalopathy, septic vs uremic T2DM Debility Comfort measures only status Continue comfort care Diagnosis/Problems Diagnosis/Problems (1) Septic shock Status: Acute (2) Pneumonia Status: Acute Qualifiers: Pneumonia type: due to unspecified organism Laterality: left Lung location: upper lobe of lung Qualified Codes: J18.9 - Pneumonia, unspecified organism (3) Acute kidney injury superimposed on chronic kidney disease Status: Acute (4) CKD (chronic kidney disease) stage 4, GFR 15-29 ml/min Status: Chronic (5) Metastatic lung cancer (metastasis from lung to other site) Status: Chronic (6) Metastasis to liver Status: Chronic (7) Obesity Status: Chronic (8) Debility Status: Acute (9) T2DM (type 2 diabetes mellitus) Status: Chronic Qualifiers: Diabetes mellitus group home insulin use: without group home use (10) Poor prognosis Status: Acute (11) Comfort measures only status Status: Acute CALLI DUNN MD Apr 17, 2023 15:04
[2023-04-17] MEDS: morphine INJ 4 MG/ML 1 ML (VIAL/SYRINGE) IV PRN ×3 (15:08→21:30)
[2023-04-18] MEDS: morphine INJ 4 MG/ML 1 ML (VIAL/SYRINGE) IV PRN ×8 (01:54→22:32)
--- NOTE | 2023-04-18 10:34 | Progress Note - Hospitalist ---
Subjective HPI/CC On Admission Date Seen by Provider: Apr 18, 2023 Time Seen by Provider: 09:40 Colleen Montoya is an 82 year old female with PMH HTN, T2DM, CHF, CAD, AFib, dementia, decubitus ulcers, CKD 4, chronic respiratory failure with hypoxia on 2 L, metastatic lung cancer to the liver, obesity, who presented with weakness. She has been at [facility]. She had not been acting herself. She had altered mental status. She was hypoxic. Upon my exam, she is unable to provide any meaningful history. Her sister and niece are present. Her sister reports that she is her DPOA. They state that she has had a signiicant decline over the past few months. Subjective/Events-last exam She is more sleepy. She does not speak. She shakes her head no to one question. Her sister is at the bedside. Objective Exam Vital Signs Vital Signs Date Time Temp Pulse Resp B/P (MAP) Pulse Ox O2 Delivery O2 Flow Rate FiO2 04/18/23 08:00 Room Air 04/17/23 21:00 98 0.00 04/16/23 15:00 118 23 98/80 (86) 04/16/23 13:47 36.1 04/14/23 02:45 32 Capillary Refill : General Appearance: No Apparent Distress, Chronically ill, Obese Respiratory: Lungs Clear, No Respiratory Distress Cardiovascular: No Murmur, Tachycardia Gastrointestinal: Normal Bowel Sounds, Soft Neurologic/Psychiatric: Aphasia, Disoriented, Other (lethargic) Results/Procedures Lab Patient resulted labs reviewed. Imaging: Reviewed Imaging Report Assessment/Plan Assessment and Plan Assess & Plan/Chief Complaint Septic shock Pneumonia UTI Metastatic lung cancer to the liver Poor prognosis ROSAS on CKD 4 Hyperkalemia Metabolic acidosis Acute metabolic encephalopathy, septic vs uremic T2DM Debility Comfort measures only status Continue comfort care Diagnosis/Problems Diagnosis/Problems (1) Septic shock Status: Acute (2) Pneumonia Status: Acute Qualifiers: Pneumonia type: due to unspecified organism Laterality: left Lung location: upper lobe of lung Qualified Codes: J18.9 - Pneumonia, unspecified organism (3) Acute kidney injury superimposed on chronic kidney disease Status: Acute (4) CKD (chronic kidney disease) stage 4, GFR 15-29 ml/min Status: Chronic (5) Metastatic lung cancer (metastasis from lung to other site) Status: Chronic (6) Metastasis to liver Status: Chronic (7) Obesity Status: Chronic (8) Debility Status: Acute (9) T2DM (type 2 diabetes mellitus) Status: Chronic Qualifiers: Diabetes mellitus keno terminal operator insulin use: without prison use (10) Poor prognosis Status: Acute (11) Comfort measures only status Status: Acute CALLI DUNN MD Apr 18, 2023 10:34
--- NOTE | 2023-04-19 21:41 | Discharge Summary ---
Discharge Summary Hospital Course Problems/Dx: (1) Septic shock Status: Acute (2) Pneumonia Status: Acute Qualifiers: Qualified Codes: J18.9 - Pneumonia, unspecified organism (3) Acute kidney injury superimposed on chronic kidney disease Status: Acute (4) CKD (chronic kidney disease) stage 4, GFR 15-29 ml/min Status: Chronic (5) Metastatic lung cancer (metastasis from lung to other site) Status: Chronic (6) Metastasis to liver Status: Chronic (7) Obesity Status: Chronic (8) Debility Status: Acute (9) T2DM (type 2 diabetes mellitus) Status: Chronic Qualifiers: (10) Poor prognosis Status: Acute (11) Comfort measures only status Status: Acute Hospital Course Date of Admission: Apr 14, 2023 at 00:20 Admission Diagnosis : Septic shock due to pneumonia Family Physician/Provider: Nilton Kyle DO Date of Discharge: 04/18/23 Discharge Diagnosis: Septic shock due to pneumonia/UTI, ROSAS on CKD, metastatic lung cancer to the liver Hospital Course: Colleen Montoya was an 82 year old female who was admitted with septic shock due to pneumonia. She was treated with IV antibiotics and fluids. She was requiring IV pressors and was admitted to the ICU. She also had ROSAS on CKD. She had recently diagnosed metastatic lung cancer to the liver. Her kidney function was severely reduced and did not improve with supportive measures. She was severely debilitated. Due to both her acute and chronic medical conditions, her family elected to transition to comfort measures only status. She subsequently on 04/18/2023 at 2250. Labs and Pending Lab Test: Microbiology 04/14/23 MRSA Screen - Final, Complete MRSA not isolated 04/13/23 Blood Culture - Final, Complete No growth 04/13/23 Urine Culture - Final, Complete Citrobacter freundii complex Home Meds Active Levemir Flexpen (Insulin Detemir) 100 Unit/Ml (3 Ml) Insuln.pen 10 Unit SQ HS 30 Days Novolog Flexpen (Insulin Aspart) 100 Unit/Ml (3 Ml) Solution 4 Units SQ TIDWM 30 Days Reported Nystatin 100,000 Unit/Gram Powder 1 Applic TP BID APPLY TO LOWER LEFT ABD Collagenase (Collagenase Clostridium Hist.) 1 Each Powder.ea. 1 Applic TOP BID APPLY TO AREAS ON BUTTOCKS Cavilon Durable Barrier (Dimethicone) 1.3 % Cream..g. 1 Applic TP BID APPLY TO LEFT HEAL AND MAKE SURE HEAL IS ELEVATED Vitamin D3 (Cholecalciferol (Vitamin D3)) 25 Mcg (1000 Unit) Tablet 25 Mcg PO DAILY K-Tab ER (Potassium Chloride) 10 Meq Tablet.er 10 Meq PO DAILY Pantoprazole Sodium 40 Mg Tablet.dr 40 Mg PO 1800 [place]-3 Acid Ethyl Esters 1 Gram Capsule 1 Gm PO DAILY Lovastatin 10 Mg Tablet 10 Mg PO HS Neurontin (Gabapentin) 300 Mg Capsule 600 Mg PO 1800 TAKES 2 (300MG) CAPS Furosemide 40 Mg Tablet 40 Mg PO DAILY Famotidine 20 Mg Tablet 20 Mg PO DAILY Farxiga (Dapagliflozin Propanediol) 5 Mg Tablet 5 Mg PO DAILY Aspirin EC (Aspirin) 81 Mg Tablet.dr 81 Mg PO DAILY Ondansetron HCl 4 Mg Tablet 4 Mg PO Q8H PRN Tylenol (Acetaminophen) 325 Mg Tablet 650 Mg PO Q6H PRN Fentanyl Patch 25 MCG (Fentanyl) 25 Mcg/Hour Patch.td72 25 Mcg TD Q72H Hydrocodone-Acetamin 5-325 mg (Hydrocodone/Acetaminophen) 5 Mg-325 Mg Tablet 1 Tab PO Q4H PRN Assessment/Pt Instructions Patient Discharge Physical Examination Vital Signs Vital Signs Date Time Temp Pulse Resp B/P (MAP) Pulse Ox O2 Delivery O2 Flow Rate FiO2 04/18/23 21:44 Room Air 04/17/23 21:00 98 0.00 04/16/23 15:00 118 23 98/80 (86) 04/16/23 13:47 36.1 04/14/23 02:45 32 Allergies: Coded Allergies: NKANo Known Allergies (Verified Allergy, Unknown, 03/26/06) Copy Copies To 1: NILTON KYLE DO Discharge Summary Date of Admission Apr 14, 2023 at 00:20 Date of Discharge Apr 19, 2023 at 00:48 Discharge Date: Apr 18, 2023 Discharge Time: 22:50 Admission Diagnosis Septic shock Comfort Measures/ End of Life Care: Comfort Measures Advance Care discuss with: family member (s) Plan: initiate discussion, clarifying prognosis, identified end-of-life goals, developed treatment plan Time spent on discussion (min): 30 Cardiopulmonary Arrest: Cardiorespiratory Arrest Date of : Apr 18, 2023 Time of : 22:50 Discharge Diagnosis Septic shock Pneumonia UTI Metastatic lung cancer to the liver Poor prognosis ROSAS on CKD 4 Hyperkalemia Metabolic acidosis Acute metabolic encephalopathy, septic vs uremic T2DM Debility Comfort measures only status (1) Septic shock Status: Acute (2) Pneumonia Status: Acute Qualifiers: Qualified Codes: J18.9 - Pneumonia, unspecified organism (3) Acute kidney injury superimposed on chronic kidney disease Status: Acute (4) CKD (chronic kidney disease) stage 4, GFR 15-29 ml/min Status: Chronic (5) Metastatic lung cancer (metastasis from lung to other site) Status: Chronic (6) Metastasis to liver Status: Chronic (7) Obesity Status: Chronic (8) Debility Status: Acute (9) T2DM (type 2 diabetes mellitus) Status: Chronic Qualifiers: (10) Poor prognosis Status: Acute (11) Comfort measures only status Status: Acute CALLI DUNN MD Apr 19, 2023 21:36
== END 2023-04-19 00:48 | disposition expired | DRG 871 ==
LOC: EDUNIT# 21:17 → ER 21:19 → ICU 04-14 00:20 → 4TH 04-16 16:35
PROVIDERS: ADMIT Family Medicine; ATTEND Internal Medicine
DX: A41.9 Sepsis, unspecified organism (principal); G93.41 Metabolic encephalopathy; L89.153 Pressure ulcer of sacral region, stage 3; L89.613 Pressure ulcer of right heel, stage 3; J18.9 Pneumonia, unspecified organism; R65.21 Severe sepsis with septic shock; J96.21 Acute and chronic respiratory failure with hypoxia; N39.0 Urinary tract infection, site not specified; N17.9 Acute kidney failure, unspecified; C34.90 Malignant neoplasm of unspecified part of unspecified bronchus or lung; C78.7 Secondary malignant neoplasm of liver and intrahepatic bile duct; N18.4 Chronic kidney disease, stage 4 (severe); E87.20 Acidosis, unspecified; I48.20 Chronic atrial fibrillation, unspecified; I13.0 Hypertensive heart and chronic kidney disease with heart failure and stage 1 through stage 4 chronic kidney disease, or unspecified chronic kidney disease; J44.0 Chronic obstructive pulmonary disease with (acute) lower respiratory infection; I42.9 Cardiomyopathy, unspecified; B37.89 Other sites of candidiasis; I50.32 Chronic diastolic (congestive) heart failure; Z51.5 Encounter for palliative care; Z66 Do not resuscitate; E11.22 Type 2 diabetes mellitus with diabetic chronic kidney disease; E66.9 Obesity, unspecified; I25.10 Atherosclerotic heart disease of native coronary artery without angina pectoris; Z79.82 Long term (current) use of aspirin; Z79.4 Long term (current) use of insulin; Z79.899 Other long term (current) drug therapy; Z87.891 Personal history of nicotine dependence; I25.2 Old myocardial infarction; E78.00 Pure hypercholesterolemia, unspecified; F03.90 Unspecified dementia, unspecified severity, without behavioral disturbance, psychotic disturbance, mood disturbance, and anxiety; E11.40 Type 2 diabetes mellitus with diabetic neuropathy, unspecified; K21.9 Gastro-esophageal reflux disease without esophagitis; M19.90 Unspecified osteoarthritis, unspecified site; G89.29 Other chronic pain; M54.9 Dorsalgia, unspecified; Z20.822 Contact with and (suspected) exposure to COVID-19; R32 Unspecified urinary incontinence; E87.5 Hyperkalemia; Z68.38 Body mass index [BMI] 38.0-38.9, adult
CPT/HCPCS: 36415; 51702; 70450; 71045; 76770; 80048; 80053; 80202; 81000; 82140; 82550; 82553; 82805; 82947; 83605; 83735; 83874; 83880; 84100; 84132; 84443; 84484; 85007; 85025; 85027; 85610; 85730; 87040; 87077; 87081; 87088; 87186; 87636; 93005; 93041; 94640; 94644